=== PATIENT | female | born 1955 | race Caucasian/White ===

== ENCOUNTER 2019-07-18 16:10 | Inpatient (IN) | payer MEDICARE, OTHER, MEDICAID ==
[~2019-07-18] VITALS: Ht 152.4 cm; Wt 53.4 kg
--- OUTSIDE RECORDS SUMMARY | ~2019-07-18 | XMS | Encounter Summary ---
Demographics + + + | Address | [address] | | | [place] [address] | + + + | Home Phone | | + + + | Preferred Language | Unknown | + + + | Marital Status | Single | + + + | Yazidi Affiliation | NON | + + + | Race | White | + + + | Ethnic Group | Not or | + + + Author + + + | Author | [facility] | + + + | Organization | [facility] | + + + | Address | Unknown | + + + | Phone | Unavailable | + + + Support + + +---------+ + | Name | Relationship | Address | Phone | + + +---------+ + | Waleska Abebe | ECON | Unknown | | + + +---------+ + | Jarad Abebe | ECON | Unknown | | + + +---------+ + | Daniele Whitten | ECON | Unknown | | + + +---------+ + Care Team Providers + +------+ + | Care Atmospheric Sciences Professor Name | Role | Phone | + +------+ + | Heide Bhatti | PCP | | + +------+ + Reason for Visit Diagnostic Testing (Routine) +--------+--------+ + + + + | Status | Reason | Specialty | Diagnoses / | Referred By | Referred To | | | | | Procedures | Contact | Contact | +--------+--------+ + + + + | Closed | | Radiology | Diagnoses | Dmitriy, | Xxrad Vasc | | | | | Occlusion | MD Kaveh | [address] | | | | | and stenosis | [address] | | | | | of carotid | [place] | [facility] | | | | | artery | [address] | Rd Mailcode: | | | | | without | [place], [place] | [address] | | | | | mention of | [address] | Physician's | | | | | cerebral | Phone: | Pavilion | | | | | infarction | [phone] | [place], [place] | | | | | Atherosclero | Fax: | [address] | | | | | sis of | [phone] | Phone: | | | | | [place] | | [phone] | | | | | arteries of | | Fax: | | | | | the | | [phone] | | | | | extremities | | | | | | | with | | | | | | | intermittent | | | | | | | | | | | | | | claudication | | | | | | | Procedures | | | | | | | VASC LAB | | | | | | | ANKLE BRACH | | | | | | | INDICS W | | | | | | | WAVEFORM | | | | | | | BILAT | | | +--------+--------+ + + + + Encounter Details +--------+ + + + + | Date | Type | Department | Care Team | Description | +--------+ + + + + | 05/28/ | Hospital | Diagnostic | | | | 2010 | Encounter | Radiology at [facility] | | | | | | [address] | | | | | | [place] Mailcode: | | | | | | [address] Physician's | | | | | | [place], | | | | | | [place] [address] | | | | | | [phone] | | | +--------+ + + + + Social History + + + +--------+------+ | Tobacco Use | Types | Packs/Day | Years | Date | | | | | Used | | + + + +--------+------+ | Current Every Day | Cigarettes | 1.5 | 39 | | | Smoker | | | | | + + + +--------+------+ + + +---------+ + | Alcohol Use | Drinks/Week | oz/Week | Comments | + + +---------+ + | Yes | 18 Standard drinks | 15.0 | | | | or equivalent | | | + + +---------+ + + + + | Sex Assigned at | Date Recorded | | | | + + + | Not on file | | + + + + + + + | Job Start Date | Occupation | Industry | + + + + | Not on file | Not on file | Not on file | + + + + + + + + | Travel History | Travel Start | Travel End | + + + + + + | No recent travel history available. | + + documented as of this encounter Medications at Time of Discharge + + + +---------+--------+ + | Medication | Sig | Dispensed | Refills | Start | End Date | | | | | | Date | | + + + +---------+--------+ + | Albuterol 90 | Inhale 1-2 Puffs | | 0 | | | | mcg/Actuation | every four hours as | | | | | | Inhalation Aerosol | needed. | | | | | + + + +---------+--------+ + | ipratropium | Inhale 2 Puffs two | | 0 | | | | (ATROVENT HFA) 17 | times daily. | | | | | | mcg/Actuation | | | | | | | Inhalation HFA | | | | | | | Aerosol Inhaler | | | | | | + + + +---------+--------+ + documented as of this encounter Plan of Treatment +--------+ + + + + | Date | Type | Specialty | Care Team | Description | +--------+ + + + + | 06/17/ | Hospital | Adult Acute Care | Jarrod Barrett MD | | | 2019 | Encounter | | [address] | | | | | | [place], | | | | | | [place] [address] | | | | | | [phone] | | | | | | | | +--------+ + + + + | 06/18/ | Procedure | Surgery | | | | 2020 | Pass | | | | +--------+ + + + + documented as of this encounter Procedures + +--------+ + + + | Procedure Name | Priori | Date/Time | Associated Diagnosis | Comments | | | ty | | | | + +--------+ + + + | VASC LAB ANKLE BRACH | Routin | 05/28/2011 | Occlusion and | Results for this | | INDICS W WAVEFORM | e | 5:30 PM | stenosis of carotid | procedure are in the | | BILAT | | PDT | artery without | results section. | | | | | mention of cerebral | | | | | | infarction | | | | | | Atherosclerosis of | | | | | | [place] arteries of | | | | | | the extremities with | | | | | | intermittent | | | | | | claudication | | + +--------+ + + + documented in this encounter Results VAS LAB [facility]KLE BRACH INDICS W WAVEFORM BILAT (05/28/2011 5:30 PM PDT) + + + + + + | Component | Value | Ref Range | Performed | Pathologist | | | | | At | Signature | + + + + + + | VAS LAB | Med Rec No: | | | | | ANKLE BRACH | [id number] Name: | | | | | INDICS | DARCY ALVARADO Birthday: | | | | | WITH WAVE | 1955 Sex: F | | | | | FORM | Alias: Patient Location: | | | | | BILATERAL | RADSCHStatus: | | | | | | Outpatient Active | | | | | | Ordering Physician: | | | | | | KAVEH ARROYO M.D. | | | | | | VAIWVE VL ANKLE BRACH | | | | | | INDICS WWVE BI completed | | | | | | on 05/28/2011 5:30 | | | | | | PMAccession # [id number] | | | | | | RESULT:LOWER EXTREMITY | | | | | | PERIPHERAL ARTERIAL | | | | | | EXAMINATION: | | | | | | 05/28/2011 Dictated | | | | | | 05/29/2011 INDICATION: | | | | | | Claudication. | | | | | | FINDINGS: Arterial | | | | | | waveforms were obtained | | | | | | at the posterior | | | | | | tibialand dorsalis pedis | | | | | | levels bilaterally as | | | | | | well as the great | | | | | | toesbilaterally. There | | | | | | are triphasic arterial | | | | | | waveforms at the | | | | | | posteriortibial and | | | | | | dorsalis pedis levels | | | | | | bilaterally. There is | | | | | | goodpulsatility of the | | | | | | waveforms in the | | | | | | hga-jk-evnmko arteries | | | | | | of thegreat toes | | | | | | bilaterally. | | | | | | Ankle/brachial indices | | | | | | measure 1.10 on | | | | | | theright and 1.01 on the | | | | | | left. IMPRESSION: | | | | | | Normal peripheral | | | | | | arterial examination | | | | | | bilaterally. END | | | | | | IMPRESSION: Attending | | | | | | Radiologists: ,Author: | | | | | | LAURA LARA M.D. | | | | | | I have personally | | | | | | viewed this | | | | | | procedure/exam, reviewed | | | | | | this report,and made | | | | | | changes to it where | | | | | | appropriate. | | | | | | Final/Electronically | | | | | | signed / Laura Dill | | | | | | Kvng 05/30/2011 | | | | | | 2:08PM Preliminary / | | | | | | Avril Donato | | | | | | 05/29/2011 8:33 PM | | | | + + + + + + + + | Specimen | + + | | + + + +---------+ + + | Performing | Address | City/State/Zipcode | Phone Number | | Organization | | | | + +---------+ + + | [facility] | | | | | RADIOLOGY | | | | + +---------+ + + documented in this encounter Visit Diagnoses + + | Diagnosis | + + | Occlusion and stenosis of carotid artery without mention of cerebral infarction | + + | Atherosclerosis of [place] arteries of the extremities with intermittent claudication | + + documented in this encounter"
--- OUTSIDE RECORDS SUMMARY | ~2019-07-18 | XMS | Encounter Summary ---
Demographics + + + | Address | [address] | | | [place] [address] | + + + | Home Phone | | + + + | Preferred Language | Unknown | + + + | Marital Status | Single | + + + | Presybeterian Affiliation | NON | + + + | Race | White | + + + | Ethnic Group | Not or | + + + Author + + + | Author | [facility] | + + + | Organization | [facility] | + + + | Address | [...] Team Providers + +------+ + | Care General Intern Name | Role | Phone | + [...] | | of carotid | [address] | [facility] | | | | | artery | [address] | Rd Mailcode: | | | | | without | [place], [place] | [address] | | | | | mention of | [address] | Physician's | | | | | cerebral | Phone: | Pavilion | | | | | infarction | [phone] | [place], [place] | | | | | Atherosclero | Fax: | [address] | | | | | sis of | [phone] | Phone: | | | | | [place] | | [phone] | | | | | arteries of | | Fax: | | | | | the | | [phone] | | | | | extremities | [...] | 2010 | Encounter | Radiology at [facility] | | | | | | [address] | | | | | | [place] Mailcode: | | | | | | [address] Physician's | | | | | | [place], | | | | | | [place] [address] | | | | | | [phone] | | | +--------+ + + + [...] | | | | | [place], | | | | | | [place] [address] | | | | | | [phone] | | | | | | | [...] of | | | | | | [place] arteries of | | | | | [...] | | | | ANKLE BRACH | [id number] Name: | | | | | INDICS [...] | | | | | PMAccession # [id number] | | | | | | RESULT:LOWER [...] the | | | | | | cwr-mk-yajeof arteries | | | | | | [...] infarction | + + | Atherosclerosis of [place] arteries of the extremities with intermittent claudication | + + documented in this encounter"
--- OUTSIDE RECORDS SUMMARY | ~2019-07-18 | XMS | Encounter Summary ---
Demographics + + + | Address | [address] | | | [place] [address] | + + + | Home Phone | | + + + | Preferred Language | Unknown | + + + | Marital Status | Single | + + + | Moravian Affiliation | NON | + + + | Race | White | + + + | Ethnic Group | Not or | + + + Author + + + | Author | [facility] | + + + | Organization | [facility] | + + + | Address | [...] Team Providers + +------+ + | Care Drying Machine Back Tender Name | Role | Phone | + +------+ + | Litzy Castillo MD | PCP | | + +------+ + Encounter Details +--------+ + + + + | Date | Type | Department | Care Team | Description | +--------+ + + + + | 12/30/ | Telephone | HOSPITAL CASE | Deborah, | | | 2018 | | [address] | [address]Y [address] | | | | | [address] | [address] | | | | | [place], [place] | Rd [place], [place] | | | | | [address] | [address] | | | | | | [phone] | | +--------+ + + + + Social History + + + +--------+------+ | Tobacco Use | Types | Packs/Day | Years | Date | | | | | Used | | + + + +--------+------+ | Current Every Day | Cigarettes | 1 | 55 | | | Smoker | | | | | + + + +--------+------+ + +---+---+---+ | Smokeless Tobacco: | | | | | Never Used | | | | + +---+---+---+ + + +---------+ + | Alcohol Use | Drinks/Week | oz/Week | Comments | + + +---------+ + | Yes | 35 Standard drinks | 35.0 | 6 beers per day | | | or equivalent | | [...] + + documented as of this encounter Plan of Treatment +--------+ + + + + | Date | Type | Specialty | Care Team | Description | +--------+ + + + + | 06/17/ | Hospital | Adult Acute Care | Jarrod Barrett MD | | | 2019 | Encounter | | [address] | | | | | | [place], | | | | | | [place] [address] | | | | | | [phone] | | | | | | | | +--------+ + + + + | 06/18/ | Procedure | Surgery | | | | 2020 | Pass | | | | +--------+ + + + + documented as of this encounter Visit Diagnoses Not on filedocumented in this encounter"
--- OUTSIDE RECORDS SUMMARY | ~2019-07-18 | XMS | Encounter Summary ---
Demographics + + + | Address | [address] | | | [place] [address] | + + + | Home Phone | | + + + | Preferred Language | Unknown | + + + | Marital Status | | + + + | Islam Affiliation | Unknown | + + + | Race | Unknown | + + + | Ethnic Group | Unknown | + + + Author + + + | Author | [facility] | | | and [place] | + + + | Organization | [facility] | | | and [place] | + + + | Address | Unknown | + + + | Phone | Unavailable | + + + Support + + +---------+ + | Name | Relationship | Address | Phone | + + +---------+ + | Daniele Tapia | ECON | Unknown | | + + +---------+ + | Verónica Lopez | ECON | Unknown | | + + +---------+ + Care Team Providers + +------+ + | Care Hog Trader Name | Role | Phone | + +------+ + PCP | Unavailable | + +------+ + Encounter Details +--------+ + + + + | Date | Type | Department | Care Team | Description | +--------+ + + + + | 01/01/ | Hospital | [facility] | | | | 2011 | Encounter | MED CTR XRAY [address] | | | | | | [address] | | | | | | [place] [address] | | | | | | [phone] | | | +--------+ + + + + Social History + +-------+ +--------+------+ | Tobacco Use | Types | Packs/Day | Years | Date | | | | | Used | | + +-------+ +--------+------+ | Never Assessed | | | | | + +-------+ +--------+------+ + + + | Sex Assigned at [...] as of this encounter Plan of Treatment +--------+---------+ + + + | Date | Type | Specialty | Care Team | Description | +--------+---------+ + + + | 09/08/ | Office | Cardiology | Christine Ortega | | | 2020 | Visit | | [address] | | | | | | [address] | | | | | | [place] [address] | | | | | | [phone] | | | | | | | | +--------+---------+ + + + documented as of this encounter Procedures + +--------+ + + + | Procedure Name | Priori | Date/Time | Associated Diagnosis | Comments | | | ty | | | | + +--------+ + + + | VAS SEGMENTAL | | 01/02/2012 | | Results for this | | PRESSURES LEGS | | 9:34 AM | | procedure are in the | | | | PDT | | results section. | + +--------+ + + + documented in this encounter Results VAS Segmental Pressures Legs (01/02/2012 9:34 AM PDT) + + | Specimen | + + | | + + + + + | Narrative | Performed At | + + + | [facility] Diagnostic Imaging Department | [facility] | | [address] | [facility] | | LOWER EXTREMITY ARTERIAL | DIAG IMG | | ULTRASOUND EVALUATION CLINICAL HISTORY: QUESTION CLAUDICATION | | | FINDINGS: The arterial supply to the lower extremities is evaluated | | | utilizing Doppler waveform and segmental pressure analysis. | | | Doppler waveforms show a normal triphasic pattern from thigh to | | | ankle bilaterally. Similarly, segmental pressures compare | | | favorably to brachial with thigh-brachial indices of 1.32 on the | | | right and 1.27 on the left; calf-brachial indices of 1.16 on the right | | | and 1.00 on the left and ankle-brachial index of 1.09 on the right | | | and 1.11 on the left. Pulse volume recordings show normal | | | waveforms. IMPRESSION: 1. NO SONOGRAPHIC EVIDENCE OF | | | SIGNIFICANT PERIPHERAL ARTERIAL DISEASE IN THE LOWER EXTREMITIES. | | | Dictated Date/Time: 01/02/2012 11:28 Transcribed Date/Time: | | | 01/02/2012 13:48 Auto Former Machine Operator: <Electronically Signed | | | by Jared Jauregui MD> 01/03/12 0814 | | + + + + + | Procedure Note | + + | Zak Ortiz - 10/27/2013 7:17 AM [facility] | | Diagnostic Imaging Department | | [address] | | | | | | | | | | | | LOWER EXTREMITY ARTERIAL ULTRASOUND EVALUATION | | | | CLINICAL HISTORY: QUESTION CLAUDICATION | | FINDINGS: The arterial supply to the lower extremities is evaluated utilizing | | Doppler waveform and segmental pressure analysis. Doppler waveforms show a | | normal triphasic pattern from thigh to ankle bilaterally. Similarly, segmental | | pressures compare favorably to brachial with thigh-brachial indices of 1.32 on | | the right and 1.27 on the left; calf-brachial indices of 1.16 on the right and | | 1.00 on the left and ankle-brachial index of 1.09 on the right and 1.11 on the | | left. Pulse volume recordings show normal waveforms. | | | | IMPRESSION: | | 1. NO SONOGRAPHIC EVIDENCE OF SIGNIFICANT PERIPHERAL ARTERIAL DISEASE IN THE | | LOWER EXTREMITIES. | | | | Dictated Date/Time: 01/02/2012 11:28 | | Transcribed Date/Time: 01/02/2012 13:48 | | Auto Former Machine Operator: | | <Electronically Signed by Jared Jauregui MD> 01/03/12 0814 | + + + +---------+ + + | Performing | Address | City/State/Zipcode | Phone Number | | Organization | | | | + +---------+ + + | [facility] | | | | | [facility] | | | | + +---------+ + + documented in this encounter Visit Diagnoses Not on filedocumented in this encounter"
--- OUTSIDE RECORDS SUMMARY | ~2019-07-18 | XMS | Encounter Summary ---
Demographics + + + | Address | [address] | | | [place] [address] | + + + | Home Phone | | + + + | Preferred Language | Unknown | + + + | Marital Status | | + + + | Moravian Affiliation | Unknown | + + + [...] Team Providers + +------+ + | Care Instructor Warper Name | Role | Phone | + +------+ + PCP | Unavailable | + +------+ + Encounter Details +--------+ + + + + | Date | Type | Department | Care Team | Description | +--------+ + + + + | 05/24/ | Hospital | [facility] | [facility] | | | 2010 | Encounter | HOSPITAL EMERGENCY | MD [address] | | | | | CENTER [address] | [facility] | | | | | DR [place], [place] | [place] [address] | | | | | [address] | [phone] | | | | | [phone] | | | +--------+ + + + [...] Cardiology | Christine Ortega | | | 2019 | Visit | | [address] | | | | | | [address] | | | | | | [place] [address] | | | | | | [phone] | | | | | | | | +--------+---------+ + + + documented as of this encounter Visit Diagnoses Not on filedocumented in this encounter"
--- OUTSIDE RECORDS SUMMARY | ~2019-07-18 | XMS | Encounter Summary ---
Demographics + + + | Address | [address] | | | [place] [address] | + + + | Home Phone | | + + + | Preferred Language | Unknown | + + + | Marital Status | | + + + | Lutheran Affiliation | Unknown | + + + | Race | Unknown | + + + | Ethnic Group | Unknown | + + + Author + + + | Author | [facility] | | | and [place] | + + + | Organization | [facility] | | | and [...] Team Providers + +------+ + | Care Food Court Team Member Name | Role | Phone | + +------+ + | Litzy Castillo MD | PCP | | + +------+ + Encounter Details +--------+ + + + + | Date | Type | Department | Care Team | Description | +--------+ + + + + | 08/28/ | Hospital | [facility] GENERIC IP | Conversion | Pain | | 2019 | Encounter | CON[address] | Transaction, | | | | [address] | Provider Unknown | | | | | [place], [place] | [phone] | | | | | [address] | | | | | | [phone] | | | +--------+ + + + + Social History + + + +--------+------+ | Tobacco Use | Types | Packs/Day | Years | Date | | | | | Used | | + + + +--------+------+ | Current Every Day | Cigarettes | 1 | 50 | | | Smoker | | | | | + + + +--------+------+ + +---+---+---+ | Smokeless Tobacco: | | | | | Never Used | | | | + +---+---+---+ + + +---------+ + | Alcohol Use | Drinks/Week | oz/Week | Comments | + + +---------+ + | Yes | | | Daily | + + +---------+ + + + [...] at Time of Discharge + + + +---------+ + + | Medication | Sig | Dispensed | Refills | Start | End Date | | | | | | Date | | + + + +---------+ + + | albuterol 90 | Inhale 2 puffs into | | 0 | | | | mcg/puff inhaler | the lungs every 4 | | | | | | | hours as needed for | | | | | | | Wheezing or | | | | | | | Shortness of Breath. | | | | | + + + +---------+ + + | atenolol | Take 100 mg by mouth | | 0 | | | | (TENORMIN) 50 mg | Daily. | | | | | | tablet | | | | | | + + + +---------+ + + | levothyroxine | Take 50 mcg by mouth | | 0 | | | | (SYNTHROID) 25 mcg | every morning | | | | | | tablet | (before breakfast). | | | | | + + + +---------+ + + | valsartan (DIOVAN) | Take 80 mg by mouth | | 0 | | | | 80 mg tablet | Daily. | | | | | + + + +---------+ + + | aspirin 325 mg | Take 325 mg by mouth | | 0 | | | | tablet | Daily. | | | | 9 | + + + +---------+ + + | clopidogrel | Take 75 mg by mouth | | 0 | | | | (PLAVIX) 75 mg | Daily. | | | | 9 | | tablet | | | | | | + + + +---------+ + + | cyclobenzaprine | Take 1 tablet by | 60 | 0 | 03/17/20 | | | (FLEXERIL) 5 MG | mouth 3 times daily | tablet | | 18 | 9 | | tablet | as needed for Muscle | | | | | | | spasms. | | | | | + + + +---------+ + + | gabapentin | Take 300 mg by mouth | | 0 | | | | (NEURONTIN) 300 mg | 4 times daily. | | | | 9 | | capsule | | | | | | + + + +---------+ + + | simvastatin | Take 40 mg by mouth | | 0 | | | | (ZOCOR) 40 mg tablet | nightly. | | | | 9 | + + + +---------+ + + | traMADol (ULTRAM) | 1-2 tablets PO q6 | 90 | 0 | 03/17/20 | | | 50 mg tablet | hours PRN back pain | tablet | | 18 | 9 | + + + +---------+ + + documented as of this encounter [...] [address] | | | | | | [place] [address] | | | | | | [phone] | | | | | | | | +--------+---------+ + + + documented as of this encounter Procedures + +--------+ + + + | Procedure Name | Priori | Date/Time | Associated Diagnosis | Comments | | | ty | | | | + +--------+ + + + | MRI SHOULDER LEFT WO | Routin | 10/23/2009 | | Results for this | | CONTRAST | e | 5:01 AM | | procedure are in the | | | | PST | | results section. | + +--------+ + + + documented in this encounter Results MRI Shoulder Left wo Contrast (10/23/2009 5:01 AM PST) + + | Specimen | + + | | + + + + + | Narrative | Performed At | + + + | This is a non-reportable procedure without a radiologist report and | | | is used for image storage only | | + + + + + | Procedure Note | + + | Zak Ortiz - 04/05/2019 10:50 PM PDT This is a non-reportable procedure | | without a radiologist report and isused for image storage only | + + documented in this encounter Visit Diagnoses + + | Diagnosis | + + | Pain Generalized pain | + + documented in this encounter"
--- OUTSIDE RECORDS SUMMARY | ~2019-07-18 | XMS | Encounter Summary ---
Demographics + + + | Address | [address] | | | [place] [address] | + + + | Home Phone [...] Author + + + | Author | [facility] | + + + | Organization | [facility] | + + + | Address | [...] Team Providers + +------+ + | Care Cognos Analyst Name | Role | Phone | + +------+ + | Litzy Castillo MD | PCP | | + +------+ + Reason for Visit +--------+ + | Reason | Comments | +--------+ + | Other | surgical clearance | +--------+ + Encounter Details +--------+ + + + + | Date | Type | Department | Care Team | Description | +--------+ + + + + | 12/02/ | Telephone | Spine Center at | Jarrod Barrett MD | Other (surgical | | 2019 | | [facility] [address] | [address] | clearance ) | | | | [address] Mailcode: | [address] [place], | | | | | [facility] | [place] [address] | | | | | and [address], | [phone] | | | | | [facility] [address] | | | | | | [place], [place] | | | | | | [address] | | | | | | [phone] | | | +--------+ + + + [...] | 35 Standard drinks | 35.0 | 5 beers per day | | | or [...] | | | | | [address] [place], | | | | | | [place] [address] | | | | | | [phone] | | | | | | | | +--------+ + + + + | 06/18/ | Procedure | Surgery | | | | 2019 | Pass | | | | +--------+ + + + + documented as of this encounter Visit Diagnoses Not on filedocumented in this encounter"
--- OUTSIDE RECORDS SUMMARY | ~2019-07-18 | XMS | Encounter Summary ---
Demographics + + + | Address | [address] | | | [place] [address] | + + + | Home Phone | | + + + | Preferred Language | Unknown | + + + | Marital Status | | + + + | Hoahaoism Affiliation | Unknown | + + + | Race | Unknown | + + + | Ethnic Group | Unknown | + + + Author + + + | Author | [facility] | | | and [place] | + + + | Organization | [facility] | | | and [...] Team Providers + +------+ + | Care Gas Compressor Operator Name | Role | Phone | + +------+ + | Litzy Castillo MD | PCP | | + +------+ + Reason for Visit + + + | Reason | Comments | + + + | Medication Reaction | | + + + Encounter Details +--------+ + + + + | Date | Type | Department | Care Team | Description | +--------+ + + + + | 03/26/ | Telephone | [facility] [place] | [place], | Medication Reaction | | 2017 | | [address] | [address] | | | | | [place], | [place] [facility], | | | | | [place] [address] | [place] [address] | | | | | [phone] | [phone] | | | | | | | | +--------+ + + + + Social History + + + +--------+------+ | Tobacco Use | Types | Packs/Day | Years | Date | | | | | Used | | + + + +--------+------+ | Current Every Day | Cigarettes | 1 | | | | Smoker | | | [...] [address] | | | | | | [place] [address] | | | | | | [phone] | | | | | | | | +--------+---------+ + + + documented as of this encounter Visit Diagnoses Not on filedocumented in this encounter"
--- OUTSIDE RECORDS SUMMARY | ~2019-07-18 | XMS | Encounter Summary ---
Demographics + + + | Address | [address] | | | [place] [address] | + + + | Home Phone | | + + + | Preferred Language | Unknown | + + + | Marital Status | Single | + + + | Roman Catholic Affiliation | NON | + + + | Race | White | + + + | Ethnic Group | Not or | + + + Author + + + | Author | [facility] | + + + | Organization | [facility] | + + + | Address | [...] Team Providers + +------+ + | Care Market Maker Name | Role | Phone | + +------+ + | Heide Bhatti | PCP | | + +------+ + Encounter Details +--------+ + + + + | Date | Type | Department | Care Team | Description | +--------+ + + + + | 02/16/ | 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
--- OUTSIDE RECORDS SUMMARY | ~2019-07-18 | XMS | Encounter Summary ---
Demographics + + + | Address | [address] | | | [place] [address] | + + + | Home Phone | | + + + | Preferred Language | Unknown | + + + | Marital Status | | + + + | Tenriism Affiliation | Unknown | + + + | Race | Unknown | + + + | Ethnic Group | Unknown | + + + Author + + + | Author | [facility] | | | and [place] | + + + | Organization | [facility] | | | and [...] Team Providers + +------+ + | Care Security Control Center Operator Name | Role | Phone | + +------+ + | Litzy Castillo MD | PCP | | + +------+ + Encounter Details +--------+ + + + + | Date | Type | Department | Care Team | Description | +--------+ + + + + | 08/28/ | Hospital | [facility] | Conversion | Pain | | 2019 | Encounter | [address] | Transaction, | | | | | [address] | Provider Unknown | | | | | [place], [place] | [phone] | | | | | [address] | | | | | | [phone] | | | +--------+ + + + [...] [address] | | | | | | [place] [address] | | | | | | [phone] | | | | | | | [...]
--- OUTSIDE RECORDS SUMMARY | ~2019-07-18 | XMS | Encounter Summary ---
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
--- OUTSIDE RECORDS SUMMARY | ~2019-07-18 | XMS | Encounter Summary ---
Demographics + + + | Address | [address] | | | [place] [address] | + + + | Home Phone | | + + + | Preferred Language | Unknown | + + + | Marital Status | | + + + | Advent Affiliation | Unknown | + + + | Race | Unknown | + + + | Ethnic Group | Unknown | + + + Author + + + | Author | [facility] | | | and [place] | + + + | Organization | [facility] | | | and [...] Team Providers + +------+ + | Care Tank Welder Name | Role | Phone | + +------+ + PCP | Unavailable | + +------+ + Encounter Details +--------+ + + + + | Date | Type | Department | Care Team | Description | +--------+ + + + + | 05/13/ | Hospital | [place] [facility] | Davy Heide | | | 2011 | Encounter | HOSPITAL XRAY [address] | EMIR [address] | | | | | [address] | [facility], | | | | | [place], [place] | [place] [address] | | | | | [address] | [phone] | | | | | [phone] | | | +--------+ + + + [...] [address] | | | | | | [place] [address] | | | | | | [phone] | | | | | | | | +--------+---------+ + + + documented as of this encounter Visit Diagnoses Not on filedocumented in this encounter"
--- OUTSIDE RECORDS SUMMARY | ~2019-07-18 | XMS | Encounter Summary ---
Demographics + + + | Address | [address] | | | [place] [address] | + + + | Home Phone | | + + + | Preferred Language | Unknown | + + + | Marital Status | Single | + + + | Scientology Affiliation | NON | + + + | Race | White | + + + | Ethnic Group | Not or | + + + Author + + + | Author | [facility] | + + + | Organization | [facility] | + + + | Address | [...] Team Providers + +------+ + | Care Machine Candle Molder Name | Role | Phone | + [...] | | | | | | | [address] | | | | | | | [address] | | | | | | | [id number] | | | | | | | [facility] | | | | | | | Hospital | | | | | | | [place], [place] | | | | | | | [address] | | | | | | | Phone: | | | | | | | [phone] | | | | | | | Fax: | | | | | | | [phone] | +--------+--------+ + + + + Encounter Details +--------+ + + + + | Date | Type | Department | Care Team | Description | +--------+ + + + + | 11/15/ | Emergency | [facility] Emergency | | | | 2009 - | | Department [address] | | | [address] | | | | 11/16/ | | [facility] Hospital | | | | 2009 | | [place], [place] | | | | | | [address] | | | | | | [phone] | | | +--------+ + + + [...] | | | | | [address] [place], | | | | | | [place] [address] | | | | | | [phone] | | | | | | | | +--------+ + + + + | 06/18/ | Procedure | Surgery | | | | 2019 | Pass | | | | +--------+ + + + + documented as of this encounter Visit Diagnoses Not on filedocumented in this encounter"
--- OUTSIDE RECORDS SUMMARY | ~2019-07-18 | XMS | Encounter Summary ---
Demographics + + + | Address | [address] | | | [place] [address] | + + + | Home Phone | | + + + | Preferred Language | Unknown | + + + | Marital Status | | + + + | Sikhism Affiliation | Unknown | + + + | Race | Unknown | + + + | Ethnic Group | Unknown | + + + Author + + + | Author | [facility] | | | and [place] | + + + | Organization | [facility] | | | and [...] Team Providers + +------+ + | Care Geographic Information Systems Manager Name | Role | Phone | + +------+ + PCP | Unavailable | + +------+ + Encounter Details +--------+ + + + + | Date | Type | Department | Care Team | Description | +--------+ + + + + | 04/10/ | Hospital | [place] [facility] | Lauro-Anshul, | | | 2011 | Encounter | HOSPITAL MED SURG | Nicole Colon MD | | | | | [address] | [address] [facility] | | | | | [place], [place] | Way [facility], | | | | | [address] | [place] [address] | | | | | [phone] | [phone] | | | | | | | [...] + + documented as of this encounter Discharge Summaries Nicole Burgess MD - 04/10/2012 1:30 AM [facility] Dictating Practitioner: NICOLE LOBO MD Patient Name: DARCY ALVARADO Patient Date of : 1955 Visit Number: [id number] DISCHARGE SUMMARY DATE OF DISCHARGE: 04/10/2012. DISCHARGE DIAGNOSIS: TIA. HOSPITAL COURSE: This is a 57-year-old patient who presented to the emergency room complaining of loss of sensation of the left lower extremity, as well as weakness, which resolved after she came to the emergency room. The patient does have a significant history of 100% carotid blockage on the left carotid and endarterectomy of the right one about 5 years ago because of a 75% blockage. The patient said she gets frequent episodes of TIA and over the last few months she has been getting it more often. The patient is already on aspirin and PLAVIX, so I do not need to optimize her medications. DISCHARGE PLAN: She will need to follow up with CECELIA Agarwal, over the next few days for further referral to a vascular surgeon with regard to her 100% blockage on the left internal carotid artery. She will continue the rest of her home medications. cc: CECELIA Martinez [id number] / [id number] Dictation Date/Time: April 10, 2012 11:57AM Serging Machine Operator Date/Time: April 12, 2012 06:27AM Authenticated and Edited by Nicole Lobo MD On 04/16/12 11:26:50 AM IFC Signed and Approved by: NICOLE LOBO MD 04/16/2012 11:26:00 documented in this encounter Plan of Treatment +--------+---------+ + + + | Date | Type | Specialty | Care Team | Description | +--------+---------+ + + + | 09/08/ | Office | Cardiology | Christine Ortega | | | 2020 | Visit | | [address] | | | | | | [address] | | | | | | [place] [address] | | | | | | [phone] | | | | | | | | +--------+---------+ + + + documented as of this encounter Visit Diagnoses Not on filedocumented in this encounter"
--- OUTSIDE RECORDS SUMMARY | ~2019-07-18 | XMS | Encounter Summary ---
Demographics + + + | Address | [address] | | | [place] [address] | + + + | Home Phone | | + + + | Preferred Language | Unknown | + + + | Marital Status | Single | + + + | Buddhism Affiliation | NON | + + + | Race | White | + + + | Ethnic Group | Not or | + + + Author + + + | Author | [facility] | + + + | Organization | [facility] | + + + | Address [...] Team Providers + +------+ + | Care Flower Cheniller Name | Role | Phone | + +------+ + | Litzy Castillo MD | PCP | | + +------+ + Reason for Referral Physical Therapy (Routine) + +--------+ + + + + | Status | Reason | Specialty | Diagnoses / | Referred By | Referred To | | | | | Procedures | Contact | Contact | + +--------+ + + + + | New Request | | Physical | Diagnoses | Jermaine, | | | | | Therapy | Lumbar | Rosa Isela Whyte, | | | | | | radiculopath | PA [address] | | | | | | y | [address] | | | | | | Procedures | [place], [place] | | | | | | PHYSICAL | [address] | | | | | | THERAPY | Phone: | | | | | | REFERRAL | [phone] | | | | | | | Fax: | | | | | | | [phone] | | + +--------+ + + + + Reason for Visit +---------+ + | Reason | Comments | +---------+ + | Post Op | | +---------+ + Consult to [place] (Routine) +--------+--------+ + + + + | Status | Reason | Specialty | Diagnoses / | Referred By | Referred To | | | | | Procedures | Contact | Contact | +--------+--------+ + + + + | Closed | | Spine | Diagnoses | Orina, | Orina, | | | | | Other | MD Jarrod | MD Jarrod | | | | | bursal cyst, | [address] | [address] | | | | | other site | [address] | [address] [address] | | | | | Spinal | Rd | Rd [place], | | | | | stenosis, | [place], [place] | [place] | | | | | lumbar | [address] | [address] | | | | | region with | Phone: | Phone: | | | | | neurogenic | [phone] | [phone] | | | | | claudication | Fax: | Fax: | | | | | | [phone] | [phone] | | | | | Radiculopath | | | | | | | y, lumbar | | | | | | | region | | | | | | | Procedures | | | | | | | REQUEST TO | | | | | | | SURGERY | | | | | | | CHAIN MAKER LOOM CONTROL | | | | | | | PA EXCIS | | | | | | | INTRASP | | | | | | | LESN,XDURAL, | | | | | | | LUMBAR PA | | | | | | | EXCIS | | | | | | | INTRASP | | | | | | | LESN,INTRADU | | | | | | | R,LUMB PA | | | | | | | BX/EXCIS | | | | | | | SPINAL | | | | | | | TUMOR,XDURAL | | | | | | | ,LUMB PA | | | | | | | BX/EXCIS | | | | | | | SPIN | | | | | | | BALBIR,INDUR,XM | | | | | | | ED,LUMB PA | | | | | | | [...] Description | +--------+---------+ + + + | 12/27/ | Office | [facility] | Jermaine, | Lumbar radiculopathy | | 2019 | Visit | [facility] [address] | SHAYE Beyer | (Primary Dx) | | | | Ave Mailcode: | [address] | | | | | [facility] | [place], [place] | | | | | and [place], | [address] | | | | | [place] [address] | [phone] | | | | | [place], [place] | | | | | | [address] | | | | | | [phone] | | | +--------+---------+ + + + Social History [...] + + + | Blood Pressure | 168/73 | 12/27/2018 1:52 PM | | | | | PDT | | + + + + + | Pulse | 59 | 12/27/2018 1:52 PM | | | | | PDT [...] + + + + | Weight | 54 kg (119 lb) | 12/27/2018 1:52 PM | | | | | PDT | | + + + + + | Height | 152.4 cm (5') | 12/27/2018 1:52 PM | | | | | PDT | | + + + + + | Body Mass Index | 23.24 | 12/27/2018 1:52 PM | | | | | PDT | | + + + + + documented in this encounter Progress Notes Rosa Isela Dean PA - 12/27/2018 2:20 PM PDTS: Ms. Sun is here for a scheduled post op visit. The patient is a 63 y/o Female with Lumbar stenosis with radiculopathy and Right L 4-5 synovial cyst. She is now s/p Right L4-5 hemilaminectomy and medial facetectomy, Right L 4-5 and Right L5-V1ldqjhvrtugpcwc and Resection of right L4-5 synovial cyst on 12/14/2018. T he patient endorses some ongoing surgical site pain but reports significant improvement in h er pre operative RLE pain. She is now able to ambulate without an assistive device. BP 168/73 (BP Location: Left upper arm, Patient Position: Sitting) | Pulse 59 | Ht 1.524 m (5') | Wt 54 kg (119 lb) | BMI 23.24 kg/m | BSA 1.51 m O: Gen: 63 y/o Female NAD Incision: Lumbar Spine-intact. No erythema, no discharge. Neuro: A + O x 3, Motor 5/5 throughout Sensation intact to light touch throughout Gait-normal pattern without assistive device A: 63 y/o Female with Lumbar stenosis with radiculopathy and Right L4-5 synovial cyst. She is now s/p Right L4-5 hemilaminectomy and medial facetectomy, Right L4-5 and Right L5-S1fora minotomies and Resection of right L4-5 synovial cyst on 12/14/2018. Doing well postop. P: Reviewed proper body mechanics and activity restrictions and progression. Patient to sta rt PT at 6 weeks post op. Placed external order, patient will call with location where she w ould like it faxed. Will have patient follow up with Dr. Barrett at 3 months postop. She has khris berkowitz advised to contact our clinic prior to her next appointment should she have any question s or concerns. She verbalized understanding and agreed with this plan. [facility] [address] [place] [id number] documented in t his encounter Plan of Treatment +--------+ + + + + | Date | Type | Specialty | Care Team | Description | +--------+ + + + + | 06/17/ | Hospital | Adult Acute Care | Jarrod Barrett MD | | | 2019 | Encounter | | [address] | | | | | | [place], | | | | | | [place] [address] | | | | | | [phone] | | | | | | | | +--------+ + + + + | 06/18/ | Procedure | Surgery | | | | 2019 | Pass | | | | +--------+ + + + + documented as of this encounter Visit Diagnoses + + | Diagnosis | + + | Lumbar radiculopathy - Primary Thoracic or lumbosacral neuritis or radiculitis, | | unspecified | + + documented in this encounter"
--- OUTSIDE RECORDS SUMMARY | ~2019-07-18 | XMS | Encounter Summary ---
Demographics + + + | Address | [address] | | | [place] [address] | + + + | Home Phone | | + + + | Preferred Language | Unknown | + + + | Marital Status | | + + + | Evangelical Affiliation | Unknown | + + + | Race | Unknown | + + + | Ethnic Group | Unknown | + + + Author + + + | Author | [facility] | | | and [place] | + + + | Organization | [facility] | | | [...] Team Providers + +------+ + | Care Project Management Manager Name | Role | Phone | + +------+ + PCP | Unavailable | + +------+ + Encounter Details +--------+ + + + + | Date | Type | Department | Care Team | Description | +--------+ + + + + | 07/23/ | Hospital | [place] [facility] | Matheus Corado MD | | | 2012 | Encounter | [facility] | [address] | | | | | [facility] | [place], [place] | | | | | [address], | [address] | | | | | [place] [address] | | | | | | [phone] | | | +--------+ + + + [...] | | 2019 | Visit | | [address] | | | | | | [address] | | | | | | [place] [address] | | | | | | [phone] | | | | | | | | +--------+---------+ + + + documented as of this encounter Visit Diagnoses Not on filedocumented in this encounter"
--- OUTSIDE RECORDS SUMMARY | ~2019-07-18 | XMS | Encounter Summary ---
Demographics + + + | Address | [address] | | | [place] [address] | + + + | Home Phone | | + + + | Preferred Language | Unknown | + + + | Marital Status | Single | + + + | Muslim Affiliation | NON | + + + | Race | White | + + + | Ethnic Group | Not or | + + + Author + + + | Author | [facility] | + + + | Organization | [facility] | + + + | [...] Team Providers + +------+ + | Care Crop Scout Name | Role | Phone | + +------+ + | Litzy Castillo MD | PCP | | + +------+ + Reason for Visit + + + | Reason | Comments | + + + | Pre-operative | | | evaluation | | + + + Encounter Details +--------+ + + + + | Date | Type | Department | Care Team | Description | +--------+ + + + + | 12/13/ | Telephone-S | Preoperative | | Pre-operative | | 2019 | cheduled | Medicine Clinic at | | evaluation | | | | [facility] | | | | | | [address] | | | | | | Mail Code: OC8PM | | | | | | [facility] | | | | | | and Healing, | | | | | | [address] | | | | | | [place], [place] | | | | | | [address] | | | | | | [phone] | | | +--------+ + + + + Anesthesia Record + + + + + | Procedure Name | Responsible | Anesthesia Start | Anesthesia Stop Time | | | Anesthesiologist | Time | | + + + + + | L4-5 LAMINECTOMY; | Shine Griffith MD | 12/14/18 1159 | 12/14/18 1506 | | (N/A Back) | | | | + + + + + +----+---+ + + | Da | T | Event | Comment | | te | i | | | | | m | | | | | e | | | +----+---+ + + | 04 | 1 | | | | /2 | 1 | | | | 3/ | 2 | | | | 20 | 2 | | | | 19 | | | | +----+---+ + + | | 1 | Pt. Check | Prior to anesthesia start, pt. Identified, examined, chart | | | 1 | | reviewed, PARQ held, anesthetic plan made or approved by | | | 2 | | attending anesthesiologist. NPO status confirmed as appropriate | | | 2 | | for procedure Preoperative evaluation: unchanged | +----+---+ + + | | 1 | Eq Check | Anesthesia machine checked Equipment verified | | | 1 | | | | | 2 | | | | | 8 | | | +----+---+ + + | | 1 | An Start | | | | 1 | | | | | 5 | | | | | 9 | | | +----+---+ + + | | 1 | An Start | | | | 2 | Data | | | | 0 | | | | | 2 | | | +----+---+ + + | | 1 | Vitals | Monitors applied Vital signs checked Patient ready for anesthesia | | | 2 | Checked | | | | 0 | | | | | 3 | | | +----+---+ + + | | 1 | ETT | | | | 2 | | | | | 1 | | | | | 3 | | | +----+---+ + + | | 1 | An Data Art | ECG leads not picking up. Stickers changed once prone, readings | | | 2 | | now appropriate | | | 1 | | | | | 9 | | | +----+---+ + + | | 1 | Ready | | | | 2 | | | | | 2 | | | | | 0 | | | +----+---+ + + | | 1 | An Data Art | Data artifact from surgical scrubbing | | | 2 | | | | | 3 | | | | | 9 | | | +----+---+ + + | | 1 | Abx | | | | 2 | Administere | | | | 4 | d | | | | 0 | | | +----+---+ + + | | 1 | Incision | | | | 2 | | | | | 5 | | | | | 4 | | | +----+---+ + + | | 1 | An Data Art | ECG double counting complexes, pulse stable mid-high 50's | | | 4 | | | | | 0 | | | | | 2 | | | +----+---+ + + | | 1 | Surgery end | | | | 4 | | | | | 4 | | | | | 5 | | | +----+---+ + + | | 1 | An Extubate | Neuromuscular function Intact. Pharynx suctioned. Patient obeys | | | 4 | | commands. Adequate pulmonary mechanics. | | | 5 | | | | | 8 | | | +----+---+ + + | | 1 | an stop | | | | 4 | data | | | | 5 | | | | | 9 | | | +----+---+ + + | | 1 | PACU Rpt | | | | 5 | Given | | | | 0 | | | | | 6 | | | +----+---+ + + | | 1 | Anesthesia | | | | 5 | End | | | | 0 | | | | | 6 | | | +----+---+ + + | | 1 | Post-Op | | | | 6 | Page | | | | 0 | | | | | 0 | | | +----+---+ + + +------+ | Meds | +------+ + + + No medications | on file. | + + + + + | No agents on file. | + + + + | No blood administrations on file. | + + +--------+ + + + | Type | Details | Placement | Removal | +--------+ + + + | Incisi | 12/14/18; 1254; Dr. Barrett; | 12/14/18 1254 by | | | on | Midline; spine- lumbar | Rosalina Brown RN | | +--------+ + + + | Periph | 12/14/18; 1127; 12/14/18; 165; | 12/14/18 1127 by | 12/14/18 165 by | | eral | Discharge | Sophie Lam RN | Tomi Soriano RN | | IV | | | | +--------+ + + + | ETT | 12/14/18; 1129; Endotracheal | 12/14/18 1129 by | 12/14/18 1458 by | | | Tube; Oral; Breath Sounds | Shine Griffith MD | Jass Huynh MD | | | bilaterally, Continous | | | | | Capnography; Cuffed; 12/14/18; | | | | | 1458 | | | +--------+ + + + documented in this encounter Social History + + + +--------+------+ | [...] + + documented as of this encounter Patient Instructions Patient Instructions Daryl Bessie, TERRY - 12/13/2018 10:24 AM PDTFormatting of this note cheo ht be different from the original. PREOPERATIVE INSTRUCTIONS Do not eat or drink anything after midnight the night before surgery. TAKE the following medications with a sip of water on the morning of surgery: ATENOLOL 100 MG TABLET ALBUTEROL 90 MCG/ACTUATION AEROSOL INHALER GABAPENTIN 300 MG CAPSULE IPRATROPIUM BROMIDE 17 MCG/ACTUATION HFA AEROSOL INHALER LEVOTHYROXINE 50 MCG TABLET Do NOT take the following medications on the morning of surgery: ASPIRIN 81 MG TABLET,DELAYED RELEASE CLOPIDOGREL 75 MG TABLET CYCLOBENZAPRINE 5 MG TABLET SIMVASTATIN 40 MG TABLET VALSARTAN 80 MG TABLET Unless Otherwise Directed by your Surgeon Do not take any Aspirin, vitamin E or non-ster oidal anti-inflammatory (NSAIDs i.e. Advil, Aleve, Ibuprofen) or herbal supplements seven da ys prior to your surgery. These drugs may interfere with normal blood clotting and may cause excessive bleeding and bruising during or after the surgery. If you are taking Coumadin (warfarin), Plavix or any other blood thinners please let you r surgical team know as medication changes will be necessary. If you need a pain medication for general purposes, use Tylenol as directed. If you are in doubt about any medications that you are taking, please contact our office . Important Guidelines Do not shave the surgical area Do not smoke, drink alcohol or use recreational drugs for 24 hours before your surgery Do not eat any hard candy or chew gum after midnight the night before your surgery. Watch for any change in your health condition. Let your surgeon know right away if you do not feel well. Do not wear makeup, perfume, lotions or powder. Remove any nail portuguese from at least one fingernail. Do not wear any jewelry to the hospital. Wear loose, comfortable clothing. Bring the case and solution for your contact lenses or wear your glasses. Leave all your valuables at home. Allow enough travel time so you re not late for your check in for surgery. Take a bath or shower and remember to shampoo your hair using your usual hair product be fore your arrival at the hospital. Please remember to brush your teeth the night before and the morning of your procedure. Surgery Check in Locations Admitting [facility] Surgery Check in Time: Someone from your surgeon's office or [facility] will provide you with information regarding your check in time. If you have any questions about this, pl ease contact your surgeon's office. Going Home Your surgical team will decide when you are medically ready to go home. If you are released to go home on the same day as your procedure/surgery please note the following: You will not be able to drive. You will be required to have a competent adult drive you or accompany you by taxi or pub lic transportation on the day of discharge. It is also required that you have a competent adult assist you and look after you on the first night after you have undergone regional blocks (72 hours for patients going home with regional block pump), deep sedation, and/or general anesthesia. If you stayed in the hospital after surgery, please arrange for your ride to come for yo u around 9AM on the day your doctor says you can go home. Check out time is 11AM. If you have questions or concerns after you go home, call your doctor s office. If it is after office hours, call the [facility] weigher operator at [phone] and ask them to page your doc tor. documented in this encounter Plan of Treatment +--------+ + + + + | Date | Type | Specialty | Care Team | Description | +--------+ + + + + | 06/17/ | Hospital | Adult Acute Care | Jarrod Barrett MD | | | 2019 | Encounter | | [address] | | | | | | [place], | | | | | | [place] [address] | | | | | | [phone] | | | | | | | | +--------+ + + + + | 06/18/ | Procedure | Surgery | | | | 2019 | Pass | | | | +--------+ + + + + documented as of this encounter Visit Diagnoses Not on filedocumented in this encounter"
--- OUTSIDE RECORDS SUMMARY | ~2019-07-18 | XMS | Encounter Summary ---
Demographics + + + | Address | [address] | | | [place] [address] | + + + | Home Phone | | + + + | Preferred Language | Unknown | + + + | Marital Status | Single | + + + | Anglican Affiliation | NON | + + + | Race | White | + + + | Ethnic Group | Not or | + + + Author + + + | Author | [facility] | + + + | Organization | [facility] | + + + | Address | [...] Team Providers + +------+ + | Care Contact Center Director Name | Role | Phone | + +------+ + | Heide Bhatti | PCP | | + +------+ + Encounter Details +--------+ + + + + | Date | Type | Department | Care Team | Description | +--------+ + + + + | 09/15/ | Telephone | Vascular Surgery | Kaveh Izaguirre MD | | | 2011 | | at [facility] 2nd Floor | [address] | | | | | [address] | [address] [place], | | | | | [address] Mailcode: | [place] [address] | | | | | [address] Physician's | [phone] | | | | | [place], | | | | | | [place] [address] | | | | | | [phone] | | | +--------+ + + + [...] | | | | | [address] [place], | | | | | | [place] [address] | | | | | | [phone] | | | | | | | | +--------+ + + + + | 06/18/ | Procedure | Surgery | | | | 2020 | Pass | | | | +--------+ + + + + documented as of this encounter Visit Diagnoses Not on filedocumented in this encounter"
--- OUTSIDE RECORDS SUMMARY | ~2019-07-18 | XMS | Encounter Summary ---
Demographics + + + | Address | [address] | | | [place] [address] | + + + | Home Phone | | + + + | Preferred Language | Unknown | + + + | Marital Status | Single | + + + | Mormonism Affiliation | NON | + + + | Race | White | + + + | Ethnic Group | Not or | + + + Author + + + | Author | [facility] | + + + | Organization | [facility] | + + + | Address | [...] Team Providers + +------+ + | Care Radio Artist Name | Role | Phone | + +------+ + | Litzy Castillo MD | PCP | | + +------+ + Reason for Visit AUTH/CERT +--------+--------+ + + + + | Status | Reason | Specialty | Diagnoses / | Referred By | Referred To | | | | | Procedures | Contact | Contact | +--------+--------+ + + + + | | | | | | | +--------+--------+ + + + + Encounter Details +--------+ + + + + | Date | Type | Department | Care Team | Description | +--------+ + + + + | 12/14/ | Anesthesia | 6A Intra [facility] | Yadira Griffith MD | | | 2019 | Event | [facility] | [address] | | | | | Admitting Desk | [place], | | | | | Located on the | [place] [address] | | | | | floor [address] | [phone] | | | | | [address] | | | | | | [place], [place] | Jass Huynh MD | | | | | [address] | [address] | | | | | | [address] | | | | | | [place], [place] | | | | | | [address] | | | | | | [phone] | | | | | | | | +--------+ + + + + Anesthesia Record + + + + + | Procedure Name | Responsible | Anesthesia Start | Anesthesia Stop Time | | | Anesthesiologist | Time | | + + + + + | L4-5 LAMINECTOMY; | Yadira Griffith MD | 12/14/18 1159 | 12/14/18 [...] | Meds | +------+ + + + | Name | Total | + + + | midazolam | 2 mg | + + + | fentaNYL | 150 mcg | + + + | lidocaine 2% | 60 mg | + + + | propofol (DIPRIVAN) 200 mg | 100 mg | + + + | rocuronium | 50 mg | + + + | dexamethasone | 4 mg | + + + | PHENYLEPHrine | 500 mcg | + + + | ondansetron | 4 mg | + + + | sugammadex | 109 mg | + + + | ceFAZolin (ANCEF) injection 2 g | 2 g | + + + | ePHEDrine injection 10 mg | 10 mg | + + + | sodium chloride 0.9 % (NS) IV | 1,200 mL | | infusion | | + + + + + | Name | + + | O2 FR Avance (Total Liters) | + + | N2O FR Avance (l/min) | + + | Air FR Avance (l/min) | + + | Insp Sevo | + + | Et Sevo | + + | Insp N2O % | + + + + | No [...] + | Periph | 12/14/18; 1127; 12/14/18; 1656; | 12/14/18 112 by | 04/23/19 1657 by | | eral | Discharge | Sophie Lam RN | Tomi Soriano RN | | IV | | | | +--------+ + + + | ETT | 12/14/18; 1129; Endotracheal | 12/14/18 1129 by | 12/14/18 1458 by | | | Tube; Oral; Breath Sounds | Yadira Griffith MD | Jass Huynh MD | [...] | | | | | [place], | | | | | | [place] [address] | | | | | | [phone] | | | | | | | [...] | + +--------+ + + + | ANE ETT | Routin | 12/14/2018 | | | | | e | 12:38 PM | | | | | | PDT | | | + +--------+ + + + +---+--------+ | | | | | Proced | | | ure | | | Note - | | | | | | Kovar, | | | Yadira | | | J, MD | | | - | | | 12/14/ | | | 2019 | | | 12:38 | | | PM PDT | | | | | | AIRWAY | | | | | | MANAGE | | | MENT - | | | | | | ETTTim | | | e of | | | Intuba | | | tion: | | | | | | 019 | | | 12:13 | | | PMIntu | | | bation | | | | | | Reason | | | : For | | | surgic | | | al | | | proced | | | urePos | | | itioni | | | ng: | | | Supine | | | OXYGEN | | | ATIONP | | | atient | | | was | | | preoxy | | | genate | | | dGrade | | | : | | | Grade | | | 1 - | | | Ventil | | | ated | | | by | | | mask | | | Induct | | | ion:Ro | | | utineI | | | NTUBAT | | | IONATT | | | EMPT | | | 1Blade | | | Type: | | | | | | Macint | | | oshBla | | | de #: | | | 3Intub | | | ation | | | Adjunc | | | ts: w/ | | | | | | Stylet | | | Laryng | | | oscopi | | | c | | | View: | | | Grade | | | IETT | | | DETAIL | | | SETT | | | Type:S | | | tandar | | | d, | | | Hi-Lo | | | Cuffed | | | Intuba | | | tion | | | Type: | | | OralCu | | | ff | | | Status | | | : | | | Cuffed | | | Size: | | | 7ETT | | | secure | | | d with | | | | | | adhesi | | | ve | | | tapeDe | | | pth at | | | Lip: | | | 20 cm | | | CONFIR | | | MATION | | | Number | | | of | | | Attemp | | | ts: | | | 1Atrau | | | matic | | | Laryng | | | oscopy | | | Positi | | | ve for | | | | | | EtCO2: | | | Wavefo | | | rm | | | capnog | | | raphyB | | | reath | | | Sounds | | | : | | | Bilate | | | ral | | | and | | | equalN | | | ARRATI | | | VEAuth | | | orized | | | by | | | KOVAR, | | | YADIRA | | | JPerfo | | | rmed | | | by | | | KOVAR, | | | YADIRA | | | J | +---+--------+ documented in this encounter Visit Diagnoses Not on filedocumented in this encounter Administered Medications + +--------+ +------+------+------+ | Medication Order | MAR | Action | Dose | Rate | Site | | | Action | Date | | | | + +--------+ +------+------+------+ | ceFAZolin (ANCEF) injection 2 g | Given | 12/15/19 | 2 g | | | | 2 g, intravenous, PREPROCEDURE | | 19 12:40 | | | | | ONCE, 1 dose, Starting Tue | | PM PDT | | | | | 12/14/18 at 1012, Until Tue | | | | | | | 12/14/18 at 1240 | | | | | | + +--------+ +------+------+------+ +---+---+ | | | +---+---+ + +-------+ +------+---+---+ | dexamethasone (DECADRON) | Given | 12/15/19 | 4 mg | | | | injection intravenous, | | 19 12:18 | | | | | INTRAPROCEDURE PRN, Starting Tue | | PM PDT | | | | | 12/14/18 at 1218, Until Tue | | | | | | | 12/14/18 at 1459 | | | | | | + +-------+ +------+---+---+ +---+---+ | | | +---+---+ + +-------+ +------+---+---+ | ePHEDrine injection 10 mg 10 | Given | 12/15/19 | 5 mg | | | | mg, intravenous, POSTPROCEDURE | | 19 2:11 | | | | | PRN, 4 doses, Starting Tue | | PM PDT | | | | | 12/14/18 at 1249, Until Tue | | | | | | | 12/14/18 at 2301, systolic blood | | | | | | | pressure less than 80 mmHg | | | | | | | refractory to IV fluids. | | | | | | + +-------+ +------+---+---+ +-------+ +------+---+---+ | Given | 12/15/19 | 5 mg | | | | | 19 2:08 | | | | | | PM PDT | | | | +-------+ +------+---+---+ +---+---+ | | | +---+---+ + +-------+ +--------+---+---+ | fentaNYL (SUBLIMAZE) injection | Given | 12/15/19 | 50 mcg | | | | intravenous, INTRAPROCEDURE PRN, | | 19 1:57 | | | | | Starting 12/14/18 at 1210, | | PM PDT | | | | | Until 12/14/18 at 1459 | | | | | | + +-------+ +--------+---+---+ +-------+ +---------+---+---+ | Given | 12/15/19 | 100 mcg | | | | | 19 12:10 | | | | | | PM PDT | | | | +-------+ +---------+---+---+ +---+---+ | | | +---+---+ + +-------+ +-------+---+---+ | lidocaine (XYLOCAINE MPF) 2 % | Given | 12/15/19 | 60 mg | | | | (20 mg/mL) injection | | 19 12:10 | | | | | intravenous, INTRAPROCEDURE PRN, | | PM PDT | | | | | Starting Thu12/14/18 at 1210, | | | | | | | Until Thu12/14/18 at 1459 | | | | | | + +-------+ +-------+---+---+ +---+---+ | | | +---+---+ + +-------+ +------+---+---+ | midazolam (PF) (VERSED) | Given | 12/15/19 | 2 mg | | | | injection INTRAPROCEDURE PRN, | | 19 12:05 | | | | | Starting 12/14/18 at 1205, | | PM PDT | | | | | Until 12/14/18 at 1459 | | | | | | + +-------+ +------+---+---+ +---+---+ | | | +---+---+ + +-------+ +------+---+---+ | ondansetron (ZOFRAN) injection | Given | 12/15/19 | 4 mg | | | | intravenous, INTRAPROCEDURE PRN, | | 19 2:11 | | | | | Starting 12/14/18 at 1411, | | PM PDT | | | | | Until Thu12/14/18 at 1459 | | | | | | + +-------+ +------+---+---+ +---+---+ | | | +---+---+ + +-------+ +---------+---+---+ | PHENYLEPHrine 100 mcg/mL IV | Given | 12/15/19 | 100 mcg | | | | syringe intravenous, | | 19 2:05 | | | | | INTRAPROCEDURE PRN, Starting Tue | | PM PDT | | | | | 12/14/18 at 1212, Until Tue | | | | | | | 12/14/18 at 1459 | | | | | | + +-------+ +---------+---+---+ +-------+ +---------+---+---+ | Given | 12/15/19 | 100 mcg | | | | | 19 1:35 | | | | | | PM PDT | | | | +-------+ +---------+---+---+ | Given | 12/15/19 | 100 mcg | | | | | 19 1:13 | | | | | | PM PDT | | | | +-------+ +---------+---+---+ +---+---+ | | | +---+---+ + +---------+ +--------+---+---+ | propofol (DIPRIVAN) 200 mg | New Bag | 12/15/19 | 100 mg | | | | intravenous, INTRAPROCEDURE | | 19 12:11 | | | | | CONTINUOUS PRN, Starting Tue | | PM PDT | | | | | 12/14/18 at 1211, Until Tue | | | | | | | 12/14/18 at 1459 | | | | | | + +---------+ +--------+---+---+ +---+---+ | | | +---+---+ + +-------+ +-------+---+---+ | rocuronium (ZEMURON) injection | Given | 12/15/19 | 50 mg | | | | intravenous, INTRAPROCEDURE PRN, | | 19 12:11 | | | | | Starting 12/14/18 at 1211, | | PM PDT | | | | | Until 12/14/18 at 1459 | | | | | | + +-------+ +-------+---+---+ +---+---+ | | | +---+---+ + + + +---+---+---+ | sodium chloride 0.9 % (NS) IV | given by | 12/15/19 | | | | | infusion 10 mL/hr, intravenous, | | 19 2:11 | | | | | PROCEDURE CONTINUOUS, Starting | anesthes | PM PDT | | | | | 12/14/18 at 1015, Until Tue | iology | | | | | | 12/14/18 at 2301 | | | | | | + + + +---+---+---+ + + +---+---+---+ | New Bag | 12/15/19 | | | | | | 19 1:35 | | | | | | PM PDT | | | | + + +---+---+---+ | given by anesthesiology | 12/15/19 | | | | | | 19 12:40 | | | | | | PM PDT | | | | + + +---+---+---+ +---+---+ | | | +---+---+ + +-------+ +--------+---+---+ | sugammadex (BRIDION) IV | Given | 12/15/19 | 109 mg | | | | INTRAPROCEDURE PRN, Starting Tue | | 19 2:49 | | | | | 12/14/18 at 1449, Until Tue | | PM PDT | | | | | 12/14/18 at 1459 | | | | | | + +-------+ +--------+---+---+ +---+---+ | | | +---+---+ documented in this encounter"
--- OUTSIDE RECORDS SUMMARY | ~2019-07-18 | XMS | Encounter Summary ---
Demographics + + + | Address | [address] | | | [place] [address] | + + + | Home Phone | | + + + | Preferred Language | Unknown | + + + | Marital Status | Single | + + + | Pentecostal Affiliation | NON | + + + | Race | White | + + + | Ethnic Group | Not or | + + + Author + + + | Author | [facility] | + + + | Organization | [facility] | + + + | [...] Team Providers + +------+ + | Care Rn Pediatric Icu Name | Role | Phone | + +------+ + | Litzy Castillo MD | PCP | | + +------+ + Reason for Referral Diagnostic Testing (Routine) + +--------+ + + + + | Status | Reason | Specialty | Diagnoses / | Referred By | Referred To | | | | | Procedures | Contact | Contact | + +--------+ + + + + | Pending | | Radiology | Diagnoses | Jermaine, | | | Review | | | Lumbar | Rosa Isela E, | | | | | | radiculopath | [place] [address] | | | | | | y | [address] | | | | | | Procedures | [place], [place] | | | | | | MRI SPINE | [address] | | | | | | LUMBAR WO | Phone: | | | | | | CONTRAST | [phone] | | | | | | | Fax: | | | | | | | [phone] | | + +--------+ + + + + Consultation (Routine) + +--------+ + + + + | Status | Reason | Specialty | Diagnoses / | Referred By | Referred To | | | | | Procedures | Contact | Contact | + +--------+ + + + + | Pending | | Pain | Diagnoses | Dean, | | | Review | | Management | Lumbar | Rosa Isela E, | | | | | | radiculopath | [place] [address] | | | | | | y | [address] | | | | | | Procedures | [place], [place] | | | | | | CONSULT TO | [address] | | | | | | PAIN | Phone: | | | | | | MANAGEMENT | [phone] | | | | | | | Fax: | | | | | | | [phone] | | + +--------+ + + + + Reason for Visit +--------+ + | Reason | Comments | +--------+ + | Other | new symptoms | +--------+ + Encounter Details +--------+ + + + + | Date | Type | Department | Care Team | Description | +--------+ + + + + | 07/30/ | Telephone | [facility] | Jarrod Barrett MD | Other (new symptoms) | | 2018 | | [facility] [address] | [address] | | | | | [place] Mailcode: | [place], | | | | | [facility] | [place] [address] | | | | | and Healing, | [phone] | | | | | [facility] [address] | | | | | | [place], [place] | | | | | | [address] | | | | | | [phone] | | | +--------+ + + + [...] | | | | | [place], | | | | | | [place] [address] | | | | | | [phone] | | | | | | | | +--------+ + + + + | 06/18/ | Procedure | Surgery | | | | 2019 | Pass | | | | +--------+ + + + + + +---------+--------+ + + | Name | Type | Priori | Associated Diagnoses | Order Schedule | | | | ty | | | + +---------+--------+ + + | MRI SPINE LUMBAR WO | Imaging | Routin | Lumbar | Expected: | | CONTRAST | | e | radiculopathy | 08/04/2018, Expires: | | | | | | 09/04/2019 | + +---------+--------+ + + documented as of this encounter Visit Diagnoses + + | Diagnosis | + + | Lumbar radiculopathy - Primary Thoracic or lumbosacral neuritis or radiculitis, | | unspecified | + + documented in this encounter"
--- OUTSIDE RECORDS SUMMARY | ~2019-07-18 | XMS | Encounter Summary ---
Demographics + + + | Address | [address] | | | [place] [address] | + + + | Home Phone [...] + + + | Author | [facility] | + + + | Organization | [facility] | + + + | [...] Providers + +------+ + | Care Supervisor [employer]ler [employer] Name | Role | Phone | + +------+ + | Unknown | PCP | Unavailable | + +------+ + Reason for Referral Diagnostic Testing (Routine) +--------+--------+ + + + + | Status | Reason | Specialty | Diagnoses / | Referred By | Referred To | | | | | Procedures | Contact | Contact | +--------+--------+ + + + + | Closed | | | Diagnoses | El | Xxrad Vasc | | | | | S/P carotid | Mayra, | [facility] [address] | | | | | | [place], | [address] | | | | | endarterecto | [address] | | | | | my | [address] | [address] Mailcode: | | | | | Procedures | [address] | [address] | | | | | VASC LAB | Road | Physician's | | | | | CAROTID | [place], [place] | Pavilion | | | | | DUPLEX RIGHT | [address] | [place], [place] | | | | | | Phone: | [address] | | | | | | [phone] | Phone: | | | | | | Fax: | [phone] | | | | | | [phone] | Fax: | | | | | | | [phone] | +--------+--------+ + + + + Encounter Details +--------+ + + + + | Date | Type | Department | Care Team | Description | +--------+ + + + + | 12/03/ | Hospital | Diagnostic | | | | 2009 | Encounter | Radiology at [facility] | | | | | | [address] | | | | | | [place] Mailcode: | | | | | | [address] Physician's | | | | | | [place], | | | | | | [place] [address] | | | | | | [phone] | | | +--------+ + + + [...] | | | | | [place], | | | | | | [place] [address] | | | | | | [phone] | | | | | | | [...] + +--------+ + + + | [facility] CAROTID | Routin | 12/03/2009 | S/p carotid | Results for this | | DUPLEX RIGHT | e | 2:49 PM | endarterectomy | procedure are in the | | | | PDT | | results section. | + +--------+ + + + documented in this encounter Results [facility] CAROTID DUPLEX RIGHT (12/03/2009 2:49 PM PDT) + + + + + + | Component | Value | Ref Range | Performed | Pathologist | | | | | At | Signature | + + + + + + | VASC LAB | Med Rec No: | | | | | CAROTID | [id number] Name: | | | | | DUPLEX | DOV ALVARADO Birthday: | | | | | RIGHT | 1955 Sex: F | | | | | | Alias: Patient Location: | | | | | | [id number]: | | | | | | Outpatient | | | | | | ActiveOrdering | | | | | | Physician: TRU Dill | | | | | | Johnathan TRIMBLE VL | | | | | | CAROTID DUPLEX [address] RT | | | | | | completed on 12/03/2009 | | | | | | 2:49 PMAccession # | | | | | | [id number] | | | | | | RESULT:CEREBROVASCULAR | | | | | | DUPLEX STUDY: | | | | | | 12/03/2009 Dictated | | | | | | 12/03/2009 FINDINGS: | | | | | | Arm blood pressures | | | | | | are approximately 140 | | | | | | mmHg | | | | | | systolicbilaterally. | | | | | | There is moderate | | | | | | plaque in the right | | | | | | common internal,and | | | | | | external carotid | | | | | | arteries. Elevated | | | | | | peak systolic velocities | | | | | | arenoted in the right | | | | | | common carotid artery at | | | | | | 196 cm/sec. In the | | | | | | rightinternal carotid | | | | | | artery, there is | | | | | | spectral broadening | | | | | | during systole,but no | | | | | | significant velocity | | | | | | peak accelerations. | | | | | | There is an | | | | | | elevatedvelocity in the | | | | | | right external carotid | | | | | | artery at 234 cm/sec. | | | | | | Theright vertebral | | | | | | artery is patent with | | | | | | antegrade flow. The left | | | | | | carotid and vertebral | | | | | | arteries were not | | | | | | evaluated. IMPRESSION: | | | | | | Abnormal examination | | | | | | with evidence of | | | | | | approximately 50% | | | | | | stenosis inthe right | | | | | | common carotid artery | | | | | | with greater than 50% | | | | | | stenosis in theright | | | | | | external carotid artery, | | | | | | but less than 50% | | | | | | stenosis in theright | | | | | | internal carotid artery. | | | | | | The right vertebral | | | | | | artery appearsnormal. | | | | | | In comparison with the | | | | | | patient's previous | | | | | | study 11/16/2009, | | | | | | there is a lesser degree | | | | | | of stenosis in the | | | | | | rightinternal carotid | | | | | | artery based on the | | | | | | velocity measurements on | | | | | | thecurrent examination, | | | | | | however, an increased | | | | | | amount of stenosis in | | | | | | theright common carotid | | | | | | artery and external | | | | | | carotid artery. END | | | | | | IMPRESSION I have | | | | | | personally viewed this | | | | | | procedure/exam and | | | | | | reviewed this report. | | | | | | STATUS FINAL / Dr. | | | | | | TRU JUNIOR | | | | | | NEERU PRELIMINARY | | | | | | - UNSIGNED / Cathie | | | | | | Margarita | | | | + + + [...] + | Diagnosis | + + | S/P carotid endarterectomy Other postprocedural status | + + documented in this encounter"
--- OUTSIDE RECORDS SUMMARY | ~2019-07-18 | XMS | Encounter Summary ---
Demographics + + + | Address | [address] | | | [place] [address] | + + + | Home Phone | | + + + | Preferred Language | Unknown | + + + | Marital Status | Single | + + + | Sabianism Affiliation | NON | + + + [...] Team Providers + +------+ + | Care Guitar Teacher Name | Role | Phone | + +------+ + | Litzy Castillo MD | PCP | | + +------+ + Encounter Details +--------+ + + + + | Date | Type | Department | Care Team | Description | +--------+ + + + + | 12/16/ | Pharmacy | Outpatient Retail | | | | 2018 | Visit | [facility] | | | | | | [address] | | | | | | [place], | | | | | | [place] [address] | | | | | | [phone] | | | +--------+ + + + [...] | | | | | [place], | | | | | | [place] [address] | | | | | | [phone] | | | | | | | | +--------+ + + + + | 06/18/ | Procedure | Surgery | | | | 2020 | Pass | | | | +--------+ + + + + documented as of this encounter Visit Diagnoses Not on filedocumented in this encounter"
--- OUTSIDE RECORDS SUMMARY | ~2019-07-18 | XMS | Encounter Summary ---
Demographics + + + | Address | [address] | | | [place] [address] | + + + | Home Phone [...] + + + | Author | [facility] | + + + | Organization | [facility] | + + + | [...] Team Providers + +------+ + | Care Bessemer Converter Blower Name | Role | Phone | + [...] | | of carotid | Harlan | [facility] | | | | | artery | [address] | Rd Mailcode: | | | | | without | [place], [place] | [address] | | | | | mention of | [address] | Physician's | | | | | cerebral | Phone: | Pavilion | | | | | infarction | [phone] | [place], [place] | | | | | Atherosclero | Fax: | [address] | | | | | sis of | [phone] | Phone: | | | | | [place] | | [phone] | | | | | arteries of | | Fax: | | | | | the | | [phone] | | | | | extremities | [...] | | +--------+--------+ + + + + Diagnostic Testing (Routine) +--------+--------+ + + + + | Status | Reason | Specialty | Diagnoses / | Referred By | Referred To | | | | | Procedures | Contact | Contact | +--------+--------+ + + + + | Closed | | Radiology | Diagnoses | Dmitriy, | [facility] | | | | | Occlusion | MD Kaveh | [address] | | | | | and stenosis | [address] | [address] | | | | | of carotid | [place] | [facility] | | | | | artery | Ana | [address] Mailcode: | | | | | without | [place], [place] | [address] | | | | | mention of | [address] | Physician's | | | | | cerebral | Phone: | Pavilion | | | | | infarction | [phone] | [place], [place] | | | | | Atherosclero | Fax: | [address] | | | | | sis of | [phone] | Phone: | | | | | [place] | | [phone] | | | | | arteries of | | Fax: | | | | | the | | [phone] | | | | | extremities | | | | | | | with | | | | | | | intermittent | | | | | | | | | | | | | | claudication | | | | | | | Procedures | | | | | | | VASC LAB | | | | | | | CAROTID | | | | | | | DUPLEX | | | | | | | COMPLETE | | | | | | | BILATERAL | | | +--------+--------+ + + + + Reason for Visit Office Visit - E/M Services (Routine) +--------+--------+ + + + + | Status | Reason | Specialty | Diagnoses / | Referred By | Referred To | | | | | Procedures | Contact | Contact | +--------+--------+ + + + + | Closed | | Vascular | | Non-[facility] | [facility] | | | | Surgery | | Epic Dept | Surg Ppv | | | | | | | [address] | | | | | | | [address] | | | | | | | [place] Mailcode: | | | | | | | [address] | | | | | | | Physician's | | | | | | | Jenna | | | | | | | [place], [place] | | | | | | | [address] | | | | | | | Phone: | | | | | | | [phone] | | | | | | | Fax: | | | | | | | [phone] | +--------+--------+ + + + + Encounter Details +--------+---------+ + + + | Date | Type | Department | Care Team | Description | +--------+---------+ + + + | 05/28/ | Office | Vascular Surgery | Kaveh Arroyo MD | Occlusion and | | 2010 | Visit | at [facility] 2nd Floor | [address] | stenosis of carotid | | | | [address] [facility] | [address] [place], | artery without | | | | [address] Mailcode: | [place] [address] | mention of cerebral | | | | [address] Physician's | [phone] | infarction; | | | | [address] [place], | | Atherosclerosis of | | | | [place] [address] | | [place] arteries of | | | | [phone] | | the extremities with | | [...] + + + | Blood Pressure | 138/62 | 05/28/2011 1:04 PM | | | | | PDT | | + + + + + | Pulse | 69 | 05/28/2011 1:04 PM | | | | | PDT | | + + + + + | Temperature | 36.6 C (97.8 F) | 05/28/2011 1:04 PM | | | | | PDT | | + + + + + | Respiratory Rate | 18 | 05/28/2011 1:04 PM | | | | | PDT | | + + + + + | Oxygen Saturation | 100% | 05/28/2011 1:04 PM | | | | | PDT | | + + + + + | Inhaled Oxygen | - | - | | | Concentration | | | | + + + + + | Weight | 62.6 kg (138 lb) | 05/28/2011 1:04 PM | | | | | PDT | | + + + + + | Height | 152.4 cm (5') | 05/28/2011 1:04 PM | | | | | PDT | | + + + + + | Body Mass Index | 26.95 | 05/28/2011 1:04 PM | | | | | PDT | | + + + + + documented in this encounter Progress Notes Germán Whitten Md - 05/28/2011 2:33 PM PDT VASCULAR AND ENDOVASCULAR SURGERY CLINIC S: Ms. Sun is a 56 yo female with PAD, HTN, HLD and COPD with history of right aorto-femora l bypass in the ([place]) and right carotid endarterectomy in October 2009 ([facility]). Prior to endarterectomy she had 80% stenosis of her right ICA and a completely occluded left ICA. She was last seen in this clinic in November 2009. She is presenting today with a recent hx of multiple TIA-like episodes. Last Thursday she had a 20 minute episode of left leg paralys is/numbness. On Thursday she had similar Sx in her right arm for 2.5 hrs and presented to the [facility] ED where she had a head CT and was sent home. Yesterday evening she had an episo de of both legs giving out, with her son describing a concomitant left facial droop. She wa s taken by ambulance back to the ED, where it was recommended she come to [facility]. She feels t hat she is having TIA's and is concerned. She also describes pain in her hips and left leg with walking short distances. She has recently decreased her smoking from 3 ppd to 1 ppd be cause of financial limitations. She denies FISCHER, CP, SOB, dizziness/LH or visual changes. Donald perez is asymptomatic in the clinic today. Current outpatient prescriptions: Albuterol 90 mcg/Actuation Inhalation Aerosol, Inhale 1-2 Puffs every four hours as needed. , Disp: , Rfl: aspirin 325 mg Oral Tablet, Take 1 Tab by mouth once daily., Disp: 30 Each, Rfl: 6 atenolol 50 mg Oral Tablet, Take 50 mg by mouth two times daily., Disp: , Rfl: ipratropium (ATROVENT HFA) 17 mcg/Actuation Inhalation HFA Aerosol Inhaler, Inhale 2 Puffs two times daily., Disp: , Rfl: simvastatin 20 mg Oral Tablet, Take 20 mg by mouth once daily in the evening. , Disp: , Rf l: traMADol 50 mg Oral Tablet, Rapid Dissolve, Take by mouth. , Disp: , Rfl: O: Filed Vitals: 05/28/2011 1:04 PM Height: 1.524 m (5') Weight: 62.596 kg (138 lb) BP: 138/62 Pulse: 69 Temp: 36.6 C (97.8 F) Resp: 18 SpO2: 100% PainSc: 0 - Zero BMI: 26.95 kg/(m^2) Gen: Well appearing, NAD HEENT: Well healed incision over site of right ICA endarterectomy, palpable carotid pulse o n right but not left. CV: RRR no mrg Resp: Hyperresonance to percussion, diffuse wheezes, distant breath sounds Abd: Soft, NT, ND, nl BS, no masses, well healed midline laparotomy scar from aorto-fem by pass. The bowel sounds are normoactive. The abdomen is soft, nondistended, and nontender. Th ere are no palpable masses or aneurysms. Ext: WWP; right radial pulse absent, left present; ulnar, brachial, femoral (R>>L), popliteal and PT pulses palpable trace on the right, absen t on the left; monophasic DP doppler signals bilaterally. CT NECK AND HEAD: The arch and great vessels appear patent. The right common carotid and in ternal carotid arteries are patent without apparent stenosis, based on CT scan. I can see pa tent MCAs, ACAs bilaterally. There are patent remnant arteries, and I think that these replace the freight handler bilaterally. A/P: Ms. Sun is a 56 yo female with an extensive hx of PAD and carotid artery dz, now with a 1 w [place] hx of episodes that are historically consistent with TIA's. 1) CVD/TIA: Asked stroke neurology for formal stroke evaluation and w/u. She is currently on daily ASA. The Stroke Team recommended the following: - Add plavix to aspirin for total duration of 3 mos. - Add pletal 100mg BID for further antiplatelet activity, duration indefinite for now. I wrote prescriptions for both of these today. Dr. Maurice Bojorquez will see Ms. Sun in his clin ic in 1 month. Will also get a carotid duplex as a baseline study today. RTC 6 mos to vascul ar clinic for carotid repeat duplex scan. 2) PAD: Intermittent claudication of the left leg, with weak left femoral pulses. Will o btain bilateral LE ABIs today and have her RTC 6 mos for repeat studies as well. I spent over 60 minutes with the patient, performing a history and physical examination. Ov er half of the time was spent in counseling. I counseled her regarding smoking cessation. Ri sks of , amputation, cancer discussed with them. KAVEH ARROYO MD VASCULAR SURGERY [address] [facility] Mailcode: [address] [place] [id number] documented in this enco unter Plan of Treatment +--------+ + + + + | Date | Type | Specialty | Care Team | Description | +--------+ + + + + | 06/17/ | Hospital | Adult Acute Care | Jarrod Barrett MD | | | 2019 | Encounter | | [address] | | | | | | [place], | | | | | | [place] [address] | | | | | | [phone] | | | | | | | | +--------+ + + + + | 06/18/ | Procedure | Surgery | | | | 2019 | Pass | | | | +--------+ + + + + documented as of this encounter Results JE VARGAS (05/28/2011 5:30 PM PDT) + + + + + + | Component | Value | Ref Range | Performed | Pathologist | | | | | At | Signature | + + + + + + | VASC LAB | Med Rec No: | | | | | ANKLE BRACH | [id number] Name: | | | | | INDICS | DARCY SUN Birthday: | | | | | WITH [...] | | | | | PMAccession # [id number] | | | | | | RESULT:LOWER [...] the | | | | | | qzd-at-leaqig arteries | | | | | | [...] | | + +---------+ + + | [facility] DEPARTMENT OF | | | | | RADIOLOGY | | | | + +---------+ + + VASC LAB CAROTID DUPLEX COMPLETE BILATERAL (05/28/2011 5:30 PM PDT) + + + + + + | Component | Value | Ref Range | Performed | Pathologist | | | | | At | Signature | + + + + + + | VASC LAB | Med Rec No: | | | | | CAROTID | [id number] Name: | | | | | DUPLEX | DARCY SUN Birthday: | | | | | COMPLETE | 1955 Sex: F | | | | | BILATERAL | Alias: Patient Location: | | | | | | [id number]: | | | | | | Outpatient Preadmit | | | | | | Ordering Physician: | | | | | | KAVEH ARROYO M.D. | | | | | | VACZIYADI VL CAROTID | | | | | | DUPLEX COMP MAITE | | | | | | completed on 05/28/2011 | | | | | | 5:30 PMAccession # | | | | | | [id number] | | | | | | RESULT:CEREBROVASCULAR | | | | | | EXAMINATION: | | | | | | 05/28/2011 Dictated | | | | | | 05/29/2011 INDICATION: | | | | | | Carotid stenosis. | | | | | | FINDINGS: The right | | | | | | arm blood pressure | | | | | | measures 131 mmHg and | | | | | | theleft, 134 mmHg. | | | | | | Duplex examination of | | | | | | the carotid | | | | | | bifurcationdemonstrates | | | | | | minimal plaquing of the | | | | | | right internal carotid | | | | | | arterywith moderate | | | | | | plaquing of the right | | | | | | external carotid artery. | | | | | | Theleft internal | | | | | | carotid artery is | | | | | | occluded. The left | | | | | | external carotidartery | | | | | | is patent with minimal | | | | | | plaquing. Both | | | | | | vertebral arteries | | | | | | arepatent with antegrade | | | | | | flow. IMPRESSION: Less | | | | | | than 50% diameter | | | | | | stenosis of the right | | | | | | internal carotid | | | | | | arterywith greater than | | | | | | 50% diameter stenosis of | | | | | | the right external | | | | | | carotidartery. The | | | | | | left internal carotid | | | | | | artery is occluded. | | | | | | There is lessthan 50% | | | | | | diameter stenosis of the | | | | | | left external carotid | | | | | | artery. END | | | | | [...] Final/Electronically | | | | | | jo ann / Laura Dill | | | | | | Kvng 05/30/2011 | | | | | | 2:08PM Preliminary / | | | | | | Avril Donato | | | | | | 05/29/2011 8:38 PM | | | | + + + + + + + + | Specimen | + + | | + + + +---------+ + + | Performing | Address | City/State/Zipcode | Phone Number | | Organization | | | | + +---------+ + + | [facility] DEPARTMENT OF | | | | | RADIOLOGY | | | | + +---------+ + + documented in this encounter Visit Diagnoses + + | Diagnosis | + + | Occlusion and stenosis of carotid artery without mention of cerebral infarction | + + | Atherosclerosis of [place] arteries of the extremities with intermittent claudication | + + documented in this encounter"
--- OUTSIDE RECORDS SUMMARY | ~2019-07-18 | XMS | Encounter Summary ---
Demographics + + + | Address | [address] | | | [place] [address] | + + + | Home Phone | | + + + | Preferred Language | Unknown | + + + | Marital Status | Single | + + + | Jehovah'S Witness Affiliation | NON | + + + [...] Team Providers + +------+ + | Care Space Operations Officer Name | Role | Phone | + [...] | | | | | CAROTID | [place], [place] | Pavilion | | | | | DUPLEX RIGHT | [address] | [place], [place] | | | | | | Phone: | [address] | | | | | | [phone] | Phone: | | | | | | Fax: | [phone] | | | | | | [phone] | Fax: | | | | | | | [phone] | +--------+--------+ + + + + Encounter [...] | | | | | | [place] [address] | | | | | | [phone] | | | +--------+ + + + [...] | | | | | [place] [address] [place], | | | | | | [place] [address] | | | | | | [phone] | | | | | | | [...] + + documented in this encounter Results [facility] LAB CAROTID DUPLEX RIGHT (12/03/2009 2:49 PM PDT) + + + + + + | Component | Value | Ref Range | Performed | Pathologist | | | | | At | Signature | + + + + + + | VASC LAB | Med Rec No: | | | | | CAROTID | [id number] Name: | | | | | DUPLEX | DOV ALVARADO Birthday: | | | | | RIGHT | 1955 Sex: F | | | | | | Alias: Patient Location: | | | | | | [id number]: | | | | | | Outpatient [...] # | | | | | | [id number] | | | | | | RESULT:CEREBROVASCULAR [...]
--- OUTSIDE RECORDS SUMMARY | ~2019-07-18 | XMS | Clinical Summary ---
Demographics + + + | Address | [address] | | | [place] [address] | + + + | Home Phone | | + + + | Preferred Language | Unknown | + + + | Marital Status | Single | + + + | Adventism Affiliation | Unknown | + + + | Race | Unknown | + + + | Ethnic Group | Unknown | + + + Author + + + | Author | [facility] [employer] [facility] (Historical as of | | | 04-09-19) | + + + | Organization | [facility] [employer] [facility] (Historical as of | | | 04-09-19) [...] Team Providers + +------+ + | Care Psychology Department Chair Name | Role | Phone | + [...] +------+-------+ + | MEDICARE | MEDICA | [id number] | | | [address] | | | RE | | | | [place] [address] | | | IP-OP | | | | | + +--------+ +------+-------+ + | - WPS - | TRICAR | [id number] | | | [address] [address] | | | [place] | | | | [place] | | | LIFE | | | | [address] | + +--------+ +------+-------+ + | MEDICAID | MEDICA | [id number] | | | [address] | | | ID | | | | [place], [place] | | | [place] | | | | [address] | + +--------+ +------+-------+ + + +--------+ [...] | | | [address]anna | | | [address] | [place] [address] | + +--------+ +--------+ + +"
--- OUTSIDE RECORDS SUMMARY | ~2019-07-18 | XMS | Encounter Summary ---
Demographics + + + | Address | [address] | | | [place] [address] | + + + | Home Phone | | + + + | Preferred Language | Unknown | + + + | Marital Status | Single | + + + | Christian Affiliation | NON | + + + | Race | White | + + + | Ethnic Group | Not or | + + + Author + + + | Author | [facility] | + + + | Organization | [facility] | + + + | [...] Team Providers + +------+ + | Care Inspector Rag Sorting Name | Role | Phone | + +------+ + | Litzy Castillo MD | PCP | | + +------+ + Reason for Visit + + + | Reason | Comments | + + + | Referral | | + + + Encounter Details +--------+ + + + + | Date | Type | Department | Care Team | Description | +--------+ + + + + | 07/19/ | Telephone | [facility] | Iván, | Referral | | 2017 | | [facility] | MD Marichuy [address] | | | | | [facility] | [address] | | | | | [address] | [place], [place] | | | | | [place] [address] Mailcode: | [address] | | | | | [address] [place] | [phone] | | | | | [facility] | | | | | | [place], [place] | | | | | | [address] | | | | | | [phone] | | | +--------+ + + + [...] | | | | | [place], | | | | | | [place] [address] | | | | | | [phone] | | | | | | | | +--------+ + + + + | 06/18/ | Procedure | Surgery | | | | 2019 | Pass | | | | +--------+ + + + + documented as of this encounter Visit Diagnoses Not on filedocumented in this encounter"
--- OUTSIDE RECORDS SUMMARY | ~2019-07-18 | XMS | Encounter Summary ---
Demographics + + + | Address | [address] | | | [place] [address] | + + + | Home Phone | | + + + | Preferred Language | Unknown | + + + | Marital Status | | + + + | Buddhist Affiliation | Unknown | + + + | Race | Unknown | + + + | Ethnic Group | Unknown | + + + Author + + + | Author | [facility] | | | and [place] | + + + | Organization | [facility] | | [...] Team Providers + +------+ + | Care Intermediate Frame Tender Name | Role | Phone | + +------+ + PCP | Unavailable | + +------+ + Encounter Details +--------+ + + + + | Date | Type | Department | Care Team | Description | +--------+ + + + + | 04/01/ | Hospital | [facility] | Fernie Capellan O, | | | 2011 | Encounter | HOSPITAL XRAY [address] | [address], | | | | | [address] | [place], [place] | | | | | [place], [place] | [address] | | | | | [address] | [phone] | | | | | [phone] | | | +--------+ + + + [...] | | | | | [place] [address] | | | | | | [phone] | | | | | | | | +--------+---------+ + + + documented as of this encounter Visit Diagnoses Not on filedocumented in this encounter"
--- OUTSIDE RECORDS SUMMARY | ~2019-07-18 | XMS | Encounter Summary ---
Demographics + + + | Address | [address] | | | [place] [address] | + + + | Home Phone | | + + + | Preferred Language | Unknown | + + + | Marital Status | | + + + | Restoration Affiliation | Unknown | + + + | Race | Unknown | + + + | Ethnic Group | Unknown | + + + Author + + + | Author | [facility] | | | and [place] | + + + | Organization | [facility] | | [...] Team Providers + +------+ + | Care Sas Developer Analyst Name | Role | Phone | + +------+ + PCP | Unavailable | + +------+ + Encounter Details +--------+ + + + + | Date | Type | Department | Care Team | Description | +--------+ + + + + | 07/20/ | Hospital | [facility] | Matheus Corado MD | | | 2011 | Encounter | [facility] | [address] | | | | | [facility] [address] | [place], [place] | | | | | [address], | [address] | | | | | [place] [address] | | | | | | [phone] | | | +--------+ + + + [...] | | | | | [place] [address] | | | | | | [phone] | | | | | | | | +--------+---------+ + + + documented as of this encounter Visit Diagnoses Not on filedocumented in this encounter"
--- OUTSIDE RECORDS SUMMARY | ~2019-07-18 | XMS | Encounter Summary ---
Demographics + + + | Address | [address] | | | [place] [address] | + + + | Home Phone | | + + + | Preferred Language | Unknown | + + + | Marital Status | | + + + | Jainism Affiliation | Unknown | + + + | Race | Unknown | + + + | Ethnic Group | Unknown | + + + Author + + + | Author | [facility] | | | and [place] | + + + | Organization | [facility] | | | and [...] Team Providers + +------+ + | Care Vacuum Cleaner Assembler Name | Role | Phone | + +------+ + | Litzy Castillo MD | PCP | | + +------+ + Encounter Details +--------+ + + + + | Date | Type | Department | Care Team | Description | +--------+ + + + + | 08/28/ | Hospital | [facility] | Conversion | Pain | | 2019 | Encounter | CONVERSION [address] | Transaction, | | | | [address] | Provider Unknown | | | | | [place], [place] | [phone] | | | | | [address] | | | | | | [phone] | | | +--------+ + + + [...] [address] | | | | | | [place] [address] | | | | | | [phone] | | | | | | | | +--------+---------+ + + + documented as of this encounter Procedures + +--------+ + + + | Procedure Name | Priori | Date/Time | Associated Diagnosis | Comments | | | ty | | | | + +--------+ + + + | XR CHEST 1 VIEW | Routin | 11/15/2009 | | Results for this | | | e | 5:02 AM | | procedure are in the | | | | PDT | | results section. | + +--------+ + + + documented in this encounter Results XR Chest 1 Vw (11/15/2009 5:02 AM PDT) + + | Specimen | [...]
--- OUTSIDE RECORDS SUMMARY | ~2019-07-18 | XMS | Encounter Summary ---
Demographics + + + | Address | [address] | | | [place] [address] | + + + | Home Phone | | + + + | Preferred Language | Unknown | + + + | Marital Status | Single | + + + | Pentecostalism Affiliation | NON | + + + [...] Team Providers + +------+ + | Care Research Physician Name | Role | Phone | + +------+ + | Heide Bhatti | PCP | | + +------+ + Encounter Details +--------+ + + + + | Date | Type | Department | Care Team | Description | +--------+ + + + + | 12/03/ | Telephone | Vascular Surgery | Kaveh Izaguirre MD | | | 2011 | | at [facility] 2nd Floor | [address] | | | | | [address] | [address] [place], | | | | | [address] Mailcode: | [place] [address] | | | | | [address] Physician's | [phone] | | | | | [place], | | | | | | [place] [address] | | | | | | [phone] | | | +--------+ + + + [...] | | | | | [place] [address] [place], | | | | | | [place] [address] | | | | | | [phone] | | | | | | | | +--------+ + + + + | 06/18/ | Procedure | Surgery | | | | 2020 | Pass | | | | +--------+ + + + + documented as of this encounter Visit Diagnoses + + | Diagnosis | + + | Occlusion and stenosis of carotid artery without mention of cerebral infarction - | | Primary | + + | Atherosclerosis of [place] arteries of the extremities with intermittent claudication | + + documented in this encounter"
--- OUTSIDE RECORDS SUMMARY | ~2019-07-18 | XMS | Encounter Summary ---
Demographics + + + | Address | [address] | | | [place] [address] | + + + | Home Phone | | + + + | Preferred Language | Unknown | + + + | Marital Status | Single | + + + | Christianity Affiliation | NON | + + + | Race | White | + + + | Ethnic Group | Not or | + + + Author + + + | Author | [facility] | + + + | Organization | [facility] | + + + | [...] Team Providers + +------+ + | Care Prepress Technician Name | Role | Phone | + [...] + + + + | 12/14/ | Hospital | [facility] [address] | Jarrod Barrett MD | | | 2019 | Encounter | [address] | [address] | | | | | [id number] [place], | | | | | [place], | [place] [address] | | | | | [place] [address] | [phone] | | | | | [phone] | | | +--------+ + + + [...] + + + | Blood Pressure | 122/66 | 12/14/2018 4:30 PM | | | | | PDT | | + + + + + | Pulse | 67 | 12/14/2018 4:30 PM | | | | | PDT | | + + + + + | Temperature | 36.5 C (97.7 F) | 12/14/2018 4:00 PM | | | | | PDT | | + + + + + | Respiratory Rate | 13 | 12/14/2018 4:30 PM | | | | | PDT | | + + + + + | Oxygen Saturation | 100% | 12/14/2018 4:30 PM | | | | | PDT | | + + + + + | Inhaled Oxygen | - | - | | | Concentration | | | | + + + + + | Weight | 54.4 kg (119 lb 14.9 | 12/14/2018 10:12 AM | | | | oz) | PDT | | + + + + + | Height | 152.4 cm (5') | 12/14/2018 10:12 AM | | | | | PDT | | + + + + + | Body Mass Index | 23.42 | 12/14/2018 10:12 AM | | | | | PDT | | + + + + + documented in this encounter Medications at Time of Discharge [...] + + +---------+ + + | aspirin EC 81 mg | Take 81 mg by mouth | | 0 | | | | oral tablet,delayed | once daily. | | | | | | release (DR/EC) | | | | | | + + + +---------+ + + | atenolol 100 mg | Take 100 mg by mouth | | 0 | | | | oral tablet | once daily. | | | | | + + [...] + + +---------+ + + | levothyroxine 50 | Take 50 mcg by mouth | | 0 | | | | mcg oral tablet | before breakfast. | | | | | + + + +---------+ + + | valsartan 80 mg | 80 mg once daily. | | 0 | 02/23/20 | | | oral tablet | | | | 18 | | + + + +---------+ + + documented as of this encounter Progress Notes Lilia De La Torre MD - 12/14/2018 3:29 PM PDTFormatting of this note might be different fro m the original. NEUROSURGERY Post-op check S/p 1. RIGHT open L4-5 hemilaminectomy 2. RIGHT L5 foraminotomy 3. Resection of synovial cyst Ht 1.524 m (5'), Wt 54.4 kg (119 lb 14.9 oz), BP 118/72, Pulse 90, Temperature 36.6 C (97 .9 F), RR 20, SpO2 95%, BMI 23.42 kg/(m^2). Facility age limit for growth percentiles is 18 years. 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 - Home today when meeting discharge criteria - Okay to continue ASA 81 mg now, discontinue Plavix per Neurology recommendations - Frequent neuro checks - Maintain adequate analgesia - Advance diet as tolerated LILIA DE LA TORRE MD Neurosurgery Resident 3:30 PM, 12/14/2018 Pager #[phone] documented in this en counter Plan of Treatment +--------+ + + + + | Date | Type | Specialty | Care Team | Description | +--------+ + + + + | 06/17/ | Hospital | Adult Acute Care | Jarrod Barrett MD | | | 2019 | Encounter | | [address] | | | | | | [place], | | | | | | [place] [address] | | | | | | [phone] | | | | | | | | +--------+ + + + + | 06/18/ | Procedure | Surgery | | | 2019 | Pass | | | | +--------+ + + + + documented as of this encounter Procedures + +--------+ + + + | Procedure Name | Priori | Date/Time | Associated Diagnosis | Comments | | | ty | | | | + +--------+ + + + | INTRAPROCEDURE | Urgent | 12/14/2018 | | Results for this | | IMAGING | | 3:29 PM | | procedure are in the | | | | PDT | | results section. | + +--------+ + + + | X-RAY SPINE | Urgent | 12/14/2018 | | Results for this | | LUMBOSACRAL 1 VIEW | | 3:14 PM | | procedure are in the | | | | PDT | | results section. | + +--------+ + + + | X-RAY FLUOROSCOPY IN | Urgent | 12/14/2018 | | Results for this | | OR > 1 HOUR | | 3:13 PM | | procedure are in the | | | | PDT | | results section. | + +--------+ + + + | CAPILLARY BLOOD | Routin | 12/14/2018 | Claudication, | Results for this | | GLUCOSE (NO CHG), | e | 3:08 PM | intermittent (HCC) | procedure are in the | | POC | | PDT | | results section. | + +--------+ + + + | PROCEDURE NOTE | Routin | 12/14/2018 | | Results for this | | | e | 2:52 PM | | procedure are in the | | | | PDT | | results section. | + +--------+ + + + | SURGICAL PATHOLOGY | Routin | 12/14/2018 | | Results for this | | | e | 1:36 PM | | procedure are in the | | | | PDT | | results section. | + +--------+ + + + | RESECTION OF SPINAL | Electi | 12/14/2018 | M71.38 Other | | | CORD TUMOR | ve | 12:01 PM | bursal cyst, other | | | | Surgic | PDT | site M48.062 | | | | al | | Spinal stenosis, | | | | | | lumbar region with | | | | | | neurogenic | | | | | | claudication M54.16 | | | | | | Radiculopathy, | | | | | | lumbar region | | + +--------+ + + + | LUMBAR LAMINECTOMY | Electi | 12/14/2018 | M71.38 Other | | | | ve | 12:01 PM | bursal cyst, other | | | | Surgic | PDT | site M48.062 | | | | al | | Spinal stenosis, | | | | | | lumbar region with | | | | | | neurogenic | | | | | | claudication M54.16 | | | | | | Radiculopathy, | | | | | | lumbar region | | + +--------+ + + + | CBC (HEMOGRAM) ONLY | Routin | 12/14/2018 | | Results for this | | | e | 11:46 AM | | procedure are in the | | | | PDT | | results section. | + +--------+ + + + | CBC ONLY | Routin | 12/14/2018 | | Results for this | | | e | 11:46 AM | | procedure are in the | | | | PDT | | results section. | + +--------+ + + + | COAGULOPATHY PANEL | Routin | 12/14/2018 | | Results for this | | (INR,APTT,FIBRINOGEN | e | 11:43 AM | | procedure are in the | | ) | | PDT | | results section. | + +--------+ + + + | ANTIBODY SCREEN | Urgent | 12/14/2018 | | Results for this | | | | 11:09 AM | | procedure are in the | | | | PDT | | results section. | + +--------+ + + + | TYPE AND SCREEN | Urgent | 12/14/2018 | | Results for this | | | | 11:09 AM | | procedure are in the | | | | PDT | | results section. | + +--------+ + + + | ABO & RH TYPE | Urgent | 12/14/2018 | | Results for this | | | | 11:09 AM | | procedure are in the | | | | PDT | | results section. | + +--------+ + + + | CAPILLARY BLOOD | Routin | 12/14/2018 | Claudication, | Results for this | | GLUCOSE (NO CHG), | e | 10:50 AM | intermittent (HCC) | procedure are in the | | POC | | PDT | | results section. | + +--------+ + + + | INTRAPROCEDURE | Routin | 12/14/2018 | | Results for this | | IMAGING | e | 10:12 AM | | procedure are in the | | | | PDT | | results section. | + +--------+ + + + documented in this encounter Results INTRAPROCEDURE IMAGING (12/14/2018 3:29 PM PDT) + + | Specimen | + + | | + + + + + | Narrative | Performed At | + + + | See admission or procedure notes for details of any intraprocedure | [facility] | | images obtained. | RADIOLOGY | + + + + +---------+ + + | Performing | Address | City/State/Zipcode | Phone Number | | Organization | | | | + +---------+ + + | [facility] | | | | + +---------+ + + X-RAY SPINE LUMBOSACRAL 1 VIEW (12/14/2018 3:14 PM PDT) + + | Specimen | + + | | + + + + + | Narrative | Performed At | + + + | - At the time of the study, no professional interpretation was | [facility] | | requested. - | RADIOLOGY | + + + + +---------+ + + | Performing | Address | City/State/Zipcode | Phone Number | | Organization | | | | + +---------+ + + | [facility] | | | | + +---------+ + + X-RAY FLUOROSCOPY IN OR > 1 HOUR (12/14/2018 3:13 PM PDT) + + | Specimen | + + | | + + + + + | Narrative | Performed At | + + + | - At the time of the study, no professional interpretation was | [facility] | | requested. - | RADIOLOGY | + + + + +---------+ + + | Performing | Address | City/State/Zipcode | Phone Number | | Organization | | | | + +---------+ + + | [facility] | | | | + +---------+ + + CAPILLARY BLOOD GLUCOSE (NO CHG), POC (12/14/2018 3:08 PM PDT) + +---------+ + + + | Component | Value | Ref Range | Performed | Pathologist | | | | | At | Signature | + +---------+ + + + | BLOOD | 116 (H) | 60 - 99 mg/dL | [facility] - | | | GLUCOSE, | | | [facility] | | | POC | | | [facility] | | | | | | OF CARE | | | | | | TESTS | | + +---------+ + + + + + | Specimen | + + | | + + + + + + + | Performing | Address | City/State/Zipcode | Phone Number | | Organization | | | | + + + + + | [facility] | [address] | [place], [place] | | | [address] | [address] | [address] | | | TESTS | | | | + + + + + PROCEDURE NOTE (12/14/2018 2:52 PM PDT) + + + | Narrative | Performed At | + + + | Jarrod Barrett MD 12/17/2018 10:29 AM Date of Service: | | | 12/14/2018 Attending Surgeon: Jarrod | | | MD Nena Tax Collector(s): | | | Lilia De La Torre MD. | | | Postoperative Diagnoses: 1. | | | Lumbar stenosis with radiculopathy. 2. Right L4-5 | | | synovial cyst Postoperative Diagnoses: 1. Lumbar | | | stenosis with radiculopathy. 2. Right L4-5 synovial cyst | | | Procedures Performed: 1. Right L4-5 | | | hemilaminectomy and medial facetectomy. 2. Right L4-5 | | | foraminotomy. 3. Right L5-S1 foraminotomy. 4. Resection | | | of right L4-5 synovial cyst. 5. Operative microscope. 6. | | | Intraoperative fluoroscopy. Estimated Blood Loss: | | | 50 mL. Specimens: Synovial cyst Indication: Ms. Sun is a | | | 63-year-old female who presented to [facility] with low back | | | pain with radiation into the right gluteal region and upper thigh. | | | MRI demonstrated right L4-5 stenosis with synovial cyst. She | | | underwent a right L5 transforaminal epidural steroid injection in | | | September that led to complete relief of her leg pain for 4 weeks | | | before the pain recurred. Given her clinical and imaging findings, | | | surgery was recommended. The risks, benefits, indications, and | | | expected recovery of the planned procedure were reviewed with the | | | patient. She agreed to proceed and consented to surgery | | | well-informed. Procedure In Detail: The patient was brought to | | | OR 12 and placed under general endotracheal anesthesia. She was | | | positioned prone on the Harlan operative table on a Dino frame | | | with her head cradled on a foam cushion. All pressure points were | | | meticulously padded. The lumbar region was then prepped and draped | | | in the standard, sterile fashion. After pausing for correct | | | patient, procedure, site, and antibiotic administration, a solution | | | of 0.25% bupivacaine and 1:200,000 of epinephrine was injected into | | | the proposed incision site. The skin was then incised using a 10 | | | blade knife in a linear fashion spanning the L4 and L5 spinous | | | processes. Using monopolar cautery, the erector spinae musculature | | | was dissected laterally on the right side, exposing the L4 and L5 | | | laminae on this side. Intraoperative x-ray was used to confirm | | | localization. The Yara retractor was placed in the wound to | | | maintain our exposure. Satisfied with our exposure, the | | | operative microscope was maneuvered into the surgical field for | | | enhanced magnification and illumination. Using an Anspach drill | | | with a 3 mm matchstick fluted bit and Kerrison rongeurs, a right | | | L4-5 hemilaminectomy and medial facetectomy were performed. The | | | ligamentum flavum was incised and removed, exposing the thecal sac. | | | The pars interarticularis was identified and preserved. We | | | encountered a synovial cyst arising from the right L4-5 facet joint | | | as predicted by the preoperative MRI. Using a Emerson and curette, | | | this was carefully dissected free from the common dural tube and | | | resected. Using a Emerson, we identified the right L5 pedicle and | | | the associated right L5 nerve root. Using Kerrison rongeurs, the | | | right L4-5 and L5-S1 foramina were enlarged. The L4-5 lateral | | | recess was also decompressed. At the conclusion of the case, the | | | right L4 and L5 nerve roots were free both to visualization and | | | palpation. The wound was then copiously irrigated with | | | antibiotic-impregnated Tis-U-Zoë. Meticulous hemostasis was | | | obtained. A concentration of 80 mg/mL of Depo-Medrol diluted in 1 | | | mL of normal saline was placed on a Gelfoam pledget and laid over | | | the hemilaminectomy site. A mixture containing 2 mL of 50 mcg/mL | | | of Fentanyl and 3 mL of 100 mcg/mL of Clonidine was injected into | | | the subfascial space. The wound was then closed in layers with 0 | | | Polysorb sutures for the muscle, #1 Polysorb sutures for the | | | lumbodorsal fascia, 2-0 Polysorb sutures for the subcutaneous | | | tissue, and a running 4-0 Biosyn for the skin with Dermabond. A | | | sterile dressing was applied to the wound. There were no | | | complications during the surgery. The patient tolerated the | | | procedure well. She was awakened, extubated, and taken to the PACU | | | for further recovery. I was present for the entire procedure on | | | December 14, 2018, as described in the note for this encounter. | | + + + SURGICAL PATHOLOGY (12/14/2018 1:36 PM PDT) + + + + + + | Component | Value | Ref Range | Performed | Pathologist | | | | | At | Signature | + + + + + + | Clinical | 63-year-old female who | | [facility] | | | History | presented with low back | | DEPARTMENT | | | | pain with radiation into | | OF | | | | the right gluteal | | PATHOLOGY | | | | region and upper thigh. | | | | | | MRI demonstrated right | | | | | | L4-5 stenosis with | | | | | | synovial cyst. | | | | + + + + + + | Final | A. Lumbar spine, | | [facility] | Electronically | | Pathologic | extradural cyst, | | DEPARTMENT | signed by | | Diagnosis | excision: Connective | | [facility] | Percy L | | | tissue with degenerative | | PATHOLOGY | MD Deana on | | | and cellular reactive | | | 12/17/2018 at | | | changesCase seen | | | 11:49 PM | | | by:Rudy Leblanc MD, | | | | | | PhD | | | | | | | | | | | | | | | | | | NeuropathologistPatholog | | | | | | y, [facility] | | | | | | Science [facility] | | | | | | electronic signature | | | | | | indicates that I have | | | | | | personally reviewed all | | | | | | diagnostic slides, the | | | | | | gross and/or microscopic | | | | | | portion of this report | | | | | | and formulated the final | | | | | | diagnosis. | | | | + + + + + + | Gross | Received is one specimen | | [facility] | | | Description | in formalin labeled | | DEPARTMENT | | | | with the patient's name | | OF | | | | (initials VLF) and | | PATHOLOGY | | | | medical record number | | | | | | [id number]. Spine, Right | | | | | | L4-5 Extradural Cyst | | | | | | received labeled "spine, | | | | | | right L4-5 extradural | | | | | | cyst-1" is a vasquez-pink, | | | | | | smooth fragment of soft | | | | | | tissue measuring 1.0 x | | | | | | 0.6 x 0.4 cm. The | | | | | | specimen is bisected to | | | | | | reveal an inner cystic | | | | | | space lined by vasquez-pink, | | | | | | smooth bertrand. The | | | | | | specimen is entirely | | | | | | submitted in 1 cassette, | | | | | | labeled A1.(KLS) | | | | + + + + + + | Ancillary | Analyte specific | | [facility] | | | Information | reagents are used in | | DEPARTMENT | | | | many laboratory tests | | OF | | | | necessary for standard | | PATHOLOGY | | | | medical care. This test | | | | | | was developed and its | | | | | | performance | | | | | | characteristics | | | | | | determined by [facility] | | | | | | laboratories. It has | | | | | | not been cleared or | | | | | | approved by the US Food | | | | | | and Drug Administration | | | | | | (FDA). FDA does not | | | | | | require this test to go | | | | | | through premarket FDA | | | | | | review. This test is | | | | | | used for clinical | | | | | | purposes. It should not | | | | | | be regarded as | | | | | | investigational or for | | | | | | research. This | | | | | | laboratory is certified | | | | | | under the Clinical | | | | | | Laboratory Improvement | | | | | | Amendments (CLIA) as | | | | | | qualified to perform | | | | | | high complexity clinical | | | | | | laboratory testing. | | | | + + + + + + + + | Specimen | + + | Tissue - Spine | + + + + + + + | Performing | Address | City/State[facility] | Phone Number | | Organization | | | | + + + + + | [facility] | [address] | [place] [address] | | | PATHOLOGY | [address] | | | + + + + + CBC (HEMOGRAM) ONLY (12/14/2018 11:46 AM PDT) + + + + + + | Component | Value | Ref Range | Performed | Pathologist | | | | | At | Signature | + + + + + + | WHITE CELL | 10.46 | 3.50 - 10.80 | [facility] | | | COUNT | | K/cu mm | LABORATORY | | | | | | SERVICES, | | | | | | CORE | | + + + + + + | RED CELL | 4.07 | 4.00 - 5.20 | [facility] | | | COUNT | | M/cu mm | LABORATORY | | | | | | SERVICES, | | | | | | CORE | | + + + + + + | HEMOGLOBIN | 13.1 | 12.0 - 16.0 | [facility] | | | | | g/dL | LABORATORY | | | | | | SERVICES, | | | | | | CORE | | + + + + + + | HEMATOCRIT | 39.1 | 36.0 - 46.0 % | [facility] | | | | | | LABORATORY | | | | | | SERVICES, | | | | | | CORE | | + + + + + + | MCV | 96.1 | 80.0 - 100.0 fL | [facility] | | | | | | LABORATORY | | | | | | SERVICES, | | | | | | CORE | | + + + + + + | MCHC | 33.5 | 32.0 - 36.0 | [facility] | | | | | g/dL | LABORATORY | | | | | | SERVICES, | | | | | | CORE | | + + + + + + | RDW SD | 53.6 (H) | 35.1 - 46.3 fL | [facility] | | | | | | LABORATORY | | | | | | SERVICES, | | | | | | CORE | | + + + + + + | PLATELET | 407 (H) | 150 - 400 K/cu | [facility] | | | COUNT | | mm | LABORATORY | | | | | | SERVICES, | | | | | | CORE | | + + + + + + | MPV | 9.1 (L) | 9.7 - 12.3 fL | [facility] | | | | | | LABORATORY | | | | | | SERVICES, | | | | | | CORE | | + + + + + + | NRBC% | 0.0 | 0.0 - 0.3 % | [facility] | | | | | | LABORATORY | | | | | | SERVICES, | | | | | | CORE | | + + + + + + | NRBC# | 0.00 | 0.00 - 0.02 | [facility] | | | | | K/cu mm | LABORATORY | | | | | | SERVICES, | | | | | | CORE | | + + + + + + + + | Specimen | + + | Blood - Blood | | (substance) | + + + + + + + | Performing | Address | City/State/Zipcode | Phone Number | | Organization | | | | + + + + + | [facility] | [address] | [place] [address] | | | [place], ANJALI | [address] | | | + + + + + COAGULOPATHY PANEL (INR,APTT,FIBRINOGEN) (12/14/2018 11:43 AM PDT) + +-------+ + + + | Component | Value | Ref Range | Performed | Pathologist | | | | | At | Signature | + +-------+ + + + | INR | 1.02 | 0.90 - 1.20 INR | [facility] | | | | | | LABORATORY | | | | | | SERVICES, | | | | | | CORE | | + +-------+ + + + | APTT | 30.8 | 26.0 - 36.0 | [facility] | | | | | seconds | LABORATORY | | | | | | SERVICES, | | | | | | CORE | | + +-------+ + + + | FIBRINOGEN | 408 | 150 - 450 mg/dL | [facility] | | | LEVEL | | | LABORATORY | | | | | | SERVICES, | | | | | | CORE | | + +-------+ + + + + + | Specimen | + + | Blood - Blood | | (substance) | + + + + + | Narrative | Performed At | + + + | INR Therapeutic ranges for full anticoagulation: INR for | [facility] | | Venous Thromboembolism (2.0 - 3.0) INR INR for | LABORATORY | | most patients with mech. valves (2.5 - 3.5) INR APTT values for | SERVICES, CORE | | monitoring heparin therapy may be affected by specimens processed >1 | | | hour after collection. APTT Therapeutic Range: | | | (75 - 120) sec Heparin levels of 0.35 - 0.7 U/mL | | + + + + + + + + | Performing | Address | City/State/Zipcode | Phone Number | | Organization | | | | + + + + + | [facility] | [address] | [place] [address] | | | SERVICES, CORE | [address] | | | + + + + + ANTIBODY SCREEN (12/14/2018 11:09 AM PDT) + + + + + + | Component | Value | Ref Range | Performed | Pathologist | | | | | At | Signature | + + + + + + | Antibody | Negative | | [facility] | | | Screen | | | LABORATORY | | | | | | SERVICES, | | | | | | TRANSFUSION | | | | | | MEDICINE | | + + + + + + + + | Specimen | + + | Blood - Blood | | (substance) | + + + + + + + | Performing | Address | City/State/Zipcode | Phone Number | | Organization | | | | + + + + + | [facility] | [address] | [place] [address] | | | SERVICES, | [address] | | | | TRANSFUSION MEDICINE | | | | + + + + + ABO & RH TYPE (12/14/2018 11:09 AM PDT) + + + + + + | Component | Value | Ref Range | Performed | Pathologist | | | | | At | Signature | + + + + + + | ABO Group | A | | [facility] | | | | | | LABORATORY | | | | | | SERVICES, | | | | | | TRANSFUSION | | | | | | MEDICINE | | + + + + + + | Rh Type | Positive | | [facility] | | | | | | LABORATORY | | | | | | SERVICES, | | | | | | TRANSFUSION | | | | | | MEDICINE | | + + + + + + + + | Specimen | + + | Blood - Blood | | (substance) | + + + + + + + | Performing | Address | City/State/Zipcode | Phone Number | | Organization | | | | + + + + + | [facility] | [address] | [place] [address] | | | SERVICES, | [address] | | | | TRANSFUSION MEDICINE | | | | + + + + + CAPILLARY BLOOD GLUCOSE (NO CHG), POC (12/14/2018 10:50 AM PDT) + +-------+ + + + | Component | Value | Ref Range | Performed | Pathologist | | | | | At | Signature | + +-------+ + + + | BLOOD | 88 | 60 - 99 mg/dL | [facility] - | | | GLUCOSE, | | | [facility] | | | POC | | | [address] | | | | | | OF CARE | | | | | | TESTS | | + +-------+ + + + + + | Specimen | + + | | + + + + + + + | Performing | Address | City/State/Zipcode | Phone Number | | Organization | | | | + + + + + | [facility] | [address] | [place], [place] | | | [place] [place] | [address] | [address] | | | TESTS | | | | + + + + + INTRAPROCEDURE IMAGING (12/14/2018 10:12 AM PDT) + + | Specimen | + + | | + + + + + | Narrative | Performed At | + + + | See admission or procedure notes for details of any intraprocedure | [facility] | | images obtained. | RADIOLOGY | + + + + +---------+ + + | Performing | Address | City/State/Zipcode | Phone Number | | Organization | | | | + +---------+ + + | [facility] | | | | + +---------+ + + documented in this encounter Visit Diagnoses + + | Diagnosis | + + | Claudication, intermittent (HCC) - Primary Peripheral vascular disease, unspecified | + + documented in this encounter Administered Medications + +--------+---------+------+------+------+ | Medication Order | MAR | Action | Dose | Rate | Site | | | Action | Date | | | | + +--------+---------+------+------+------+ + +---+ | acetaminophen (TYLENOL) tablet | | | 1,000 mg 1,000 mg, oral, | | | PREPROCEDURE ONCE, 1 dose, | | | Starting 12/14/18 at 1012, | | | Until 12/14/18 at 2301 | | + +---+ | | | + +---+ + +-------+ +------+---+---+ | ePHEDrine injection 10 [...] PDT | | | | +-------+ +------+---+---+ + +---+ | | | + +---+ | fentaNYL (SUBLIMAZE) injection | | | 25-50 mcg 25-50 mcg, | | | intravenous, POSTPROCEDURE PRN, 8 | | | doses, Starting Thu12/14/18 at | | | 1249, Until Thu12/14/18 at 2301, | | | severe pain while in Phase I | | | Recovery | | + +---+ | | | + +---+ + +-------+ +--------+---+---+ | gabapentin (NEURONTIN) capsule | Given | 12/15/19 | 600 mg | | | | 600 mg 600 mg, oral, | | 19 11:11 | | | | | PREPROCEDURE ONCE, 1 dose, | | AM PDT | | | | | Starting Thu12/14/18 at 1012, | | | | | | | Until Thu12/14/18 at 1111 | | | | | | + +-------+ +--------+---+---+ + +---+ | | | + +---+ | hydrALAZINE (APRESOLINE) | | | injection 10 mg 10 mg, | | | intravenous, EVERY 15 MINUTES | | | NEEDED, 4 doses, Starting Tue | | | 12/14/18 at 1251, Until Tue | | | 12/14/18 at 2301, hypertension, | | | first line | | + +---+ | | | + +---+ | HYDROmorphone (DILAUDID) | | | injection 0.2-0.5 mg 0.2-0.5 mg, | | | intravenous, POSTPROCEDURE PRN, | | | Starting 12/14/18 at 1249, | | | Until 12/14/18 at 2301, | | | moderate pain while in Phase I | | | Recovery | | + +---+ | | | + +---+ + +-------+ +------+---+---+ | ipratropium-albuterol (CATRACHOO-NEB) | Given | 12/15/19 | 3 mL | | | | nebulizer solution 3 mL 3 mL, | | 19 11:47 | | | | | inhalation, ONCE, 1 dose, Tue | | AM PDT | | | | | 12/14/18 at 1130 | | | | | | + +-------+ +------+---+---+ + +---+ | | | + +---+ | lidocaine (XYLOCAINE) 10 mg/mL | | | (1 %) injection subcutaneous, | | | PREPROCEDURE PRN, Starting Tue | | | 12/14/18 at 1012, Until Tue | | | 12/14/18 at 2301, IV start | | + +---+ | | | + +---+ | naloxone (NARCAN) injection | | | intravenous, POSTPROCEDURE PRN, | | | Starting 12/14/18 at 1249, | | | Until 12/14/18 at 2301, | | | hypopnea | | + +---+ | | | + +---+ | ondansetron (ZOFRAN) injection | | | 4 mg 4 mg, intravenous, | | | POSTPROCEDURE PRN, 1 dose, | | | Starting 12/14/18 at 1249, | | | Until 12/14/18 at 2301, | | | nausea/vomiting, 1st line | | + +---+ | | | + +---+ | promethazine (PHENERGAN) | | | injection 6.25-12.5 mg 6.25-12.5 | | | mg, intravenous, POSTPROCEDURE | | | PRN, 1 dose, Starting 12/14/18 | | | at 1249, Until 12/14/18 at | | | 2301, nausea/vomiting, 2nd line | | + +---+ | | | + +---+ + + + +---+---+---+ | sodium chloride [...] + +---+---+---+ +---+---+ | | | +---+---+ documented in this encounter
--- OUTSIDE RECORDS SUMMARY | ~2019-07-18 | XMS ---
Demographics + + + | Address | [address] | | | [address] | | | [place] [address] | + + + | Preferred Language | Unknown | + + + | Marital Status | Unknown | + + + | Nondenominational Affiliation | Unknown | + + + | Race | Unknown | + + + | Ethnic Group | Unknown | + + + Author + + + | Author | [facility] | + + + | Organization | [facility] | + + + | Address | [address] | | | [place] [address] | + + + | Phone | | + + + Care Team Providers + + + + | Care Cheese Maker Name | Role | Phone | + + + + Unavailable | Unavailable | + + + + PROBLEMS +---------+ + + +--------+ + + | Type | Condition | ICD9-CM | [id number] | Onset | Condition | SNOMED | | | | Code | Code | Dates | Status | Code | +---------+ + + +--------+ + + | Problem | Hyperlipid | 272.4 | | | Active | 10758990 | | | emia NOS | | | | | | +---------+ + + +--------+ + + | Problem | Tobacco | 305.1 | | | Active | 265769074 | | | use | | | | | | +---------+ + + +--------+ + + | Problem | Transient | 435.9 | | | Active | 202265541 | | | ischemic | | | | | | | | attack | | | | | | +---------+ + + +--------+ + + | Problem | Hyperlipid | | E78.5 | | Active | 37004841 | | | emia | | | | | | +---------+ + + +--------+ + + | 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 | | | | | | | | cardiovasc | | | | | | | | ular | | | | | | | | disease | | | | | | +---------+ + + +--------+ + + | Problem | HX | V12.54 | | | Active | 756869034 | | | TIA/STROKE | | | | | | | | W/O RESID | | | | | | +---------+ + + +--------+ + + | Problem | OA | 715.90 | | | Active | 460304586 | | | (osteoarth | | | | | | | | ritis) | | | | | | +---------+ + + +--------+ + + | Problem | Essential | | I10 | | Active | 46424115 | | | (primary) | | | | | | | | hypertensi | | | | | | | | on | | | | | | +---------+ + + +--------+ + + | Problem | Asthma w/ | 493.22 | | | Active | 626574098 | | | COPD w/ | | | | | | | | acute | | | | | | | | exacerbati | | | | | | | | on | | | | | | +---------+ + + +--------+ + + | Problem | Hypertensi | 401.9 | | | Active | 69374836 | | | on | | | | | | +---------+ + + +--------+ + + | Problem | Joint | 719.41 | | | Active | 733840620 | | | pain, | | | | | | | | shoulder | | | | | | +---------+ + + +--------+ + + | Problem | POSTSURGIC | V45.89 | | | Active | 92376732 | | | [place] | | | | | | | | NEC | | | | | | +---------+ + + +--------+ + + | Problem | ASTHMA NOS | 493.90 | | | Active | 100464708 | +---------+ + + +--------+ + + | Problem | Low Back | 724.5 | | | Active | 689939951 | | | Pain NOS | | | | | | +---------+ + + +--------+ + + | Problem | Acute | 466.0 | | | Active | 19833815 | | | bronchitis | | | | | | | | NOS | | | | | | +---------+ + + +--------+ + + | Problem | ROTATOR | 727.61 | | | Active | 7011970 | | | CUFF | | | | | | | | RUPTURE | | | | | | +---------+ + + +--------+ + + | Problem | Abnormal | 794.8 | | | Active | 56375013 | | | liver | | | | | | | | function | | | | | | | | study | | | | | | +---------+ + + +--------+ + + ALLERGIES + + + + +--------+ | Substance | Reaction | Event Type | Date | Status | + + + + +--------+ | Tetracycline | Unknown | Drug Allergy | December, | Active | | HCl | | | | | + + + + +--------+ | vioxx | Unknown | Non Drug | December, | Active | | | | Allergy | | | + + + + +--------+ SOCIAL HISTORY No smoking Hx information available PLAN OF CARE + +---------+ | Activity | Details | + +---------+ +---+ | | +---+ + + + | Follow Up | 4 Months Reason:null | + + + VITAL SIGNS + + + + | Height | 60 in | 2017-01-14 | + + + + | Weight | 148.2 lbs | 2017-01-14 | + + + + | BMI | 28.94 kg/m2 | 2017-01-14 | + + + + | Heart Rate | 71 /min | 2017-01-14 | + + + + | Blood pressure systolic | 184 mm Hg | 2017-01-14 | + + + + | Blood pressure diastolic | 86 mm Hg | 2017-01-14 | + + + + MEDICATIONS + + + + + + + +--------+ | Medicati | Instruct | Dosage | Frequenc | Start | End Date | Duration | Status | | on | ions | | y | Date | | | | + + + + + + + +--------+ | Prilosec | | | | | | | Active | + + + + + + + +--------+ | Albutero | Inhalati | 2 puffs | | 29 May, | | 30 | Active | | l 90 | on every | | | 2012 | | | | | MCG/ACT | 4 hrs | | | | | | | | | prn | | | | | | | + + + + + + + +--------+ | Albutero | Inhalati | 3 ml as | 4h | 24 Mar, | | | Active | | l | on every | needed | | 2013 | | | | | Sulfate | 4 hrs | | | | | | | | (2.5 | | | | | | | | | MG/3ML) | | | | | | | | | 0.083% | | | | | | | | + + + + + + + +--------+ | Atenolol | | TAKE ONE | | | | 30 | Active | | 25 MG | | TABLET | | | | | | | | | BY MOUTH | | | | | | | | | TWICE A | | | | | | | | | DAY | | | | | | + + + + + + + +--------+ | Meloxica | Orally | 1 | 24h | | | | Active | | m 5 MG | Once a | capsule | | | | | | | | day | | | | | | | + + + + + + + +--------+ | Levothyr | | TAKE ONE | | | | 30 | Active | | oxine | | TABLET | | | | | | | Sodium | | BY MOUTH | | | | | | | 25 MCG | | EVERY | | | | | | | | | MORNING | | | | | | | | | ON AN | | | | | | | | | EMPTY | | | | | | | | | STOMACH | | | | | | + + + + + + + +--------+ | Simvasta | po q pm | TAKE ONE | | | | 90 | Active | | tin 40 | | TABLET | | | | | | | MG | | BY MOUTH | | | | | | | | | EVERY | | | | | | | | | DAY IN | | | | | | | | | THE | | | | | | | | | EVENING | | | | | | + + + + + + + +--------+ | Ventolin | | INHALE 2 | | | | 30 | Active | | HFA 108 | | PUFFS | | | | | | | (90 | | BY MOUTH | | | | | | | Base) | | EVERY 4 | | | | | | | MCG/ACT | | HOURS | | | | | | | | | | | | | | | | | | NEEDED | | | | | | + + + + + + + +--------+ RESULTS No Results PROCEDURES + + + + + | Procedure | Date Ordered | Related Diagnosis | Body Site | + + + + + | Office Visit, Est | January 14, 2017 | | | | Pt., Level 3 | | | | + + + + + IMMUNIZATIONS No Known Immunizations"
--- OUTSIDE RECORDS SUMMARY | ~2019-07-18 | XMS | Encounter Summary ---
Demographics + + + | Address | [address] | | | [place] [address] | + + + | Home Phone | | + + + | Preferred Language | Unknown | + + + | Marital Status | | + + + | Episcopalian Affiliation | Unknown | + + + | Race | Unknown | + + + | Ethnic Group | Unknown | + + + Author + + + | Author | [facility] | | | and [place] | + + + | Organization | [facility] | | | [...] Team Providers + +------+ + | Care Water Meter Mechanic Name | Role | Phone | + +------+ + | Litzy Castillo MD | PCP | | + +------+ + Encounter Details +--------+ + + + + | Date | Type | Department | Care Team | Description | +--------+ + + + + | 08/28/ | Hospital | [facility] [place] [facility] | Conversion | Pain | | 2019 | Encounter | [address] | Transaction, | | | | [address] | Provider Unknown | | | | | [place], [place] | [phone] | | | | | [address] | | | | | | [phone] | | | +--------+ + + + [...] [place] | | | | | | [place] [address] | | | | | | [phone] | | | | | | | [...] for this | | | e | 5:03 AM | | procedure are in the | | | | PDT | | results section. | + +--------+ + + + documented in this encounter Results CT Head wo Contrast (02/25/2013 5:03 AM PDT) + + | Specimen | [...]
--- OUTSIDE RECORDS SUMMARY | ~2019-07-18 | XMS | Encounter Summary ---
Demographics + + + | Address | [address] | | | [place] [address] | + + + | Home Phone | | + + + | Preferred Language | Unknown | + + + | Marital Status | Single | + + + | Voodoo Affiliation | NON | + + + [...] Team Providers + +------+ + | Care Elocution Teacher Name | Role | Phone | + +------+ + | Litzy Catsillo MD | PCP | | + +------+ [...] | | | | | Procedures | [place], [place] | | | | | | MRI SPINE | [address] | | | | | | LUMBAR WO | Phone: | | | | | | CONTRAST | [phone] | | | | | | | Fax: | | | | | | | [phone] | | + +--------+ + + + [...] | | | | | Procedures | [place], [place] | | | | | | CONSULT TO | [address] | | | | | | PAIN | Phone: | | | | | | MANAGEMENT | [phone] | | | | | | | Fax: | | | | | | | [phone] | | + +--------+ + + + [...] (new symptoms) | | 2018 | | [facility] [address] | [address] | | | | | [place] Mailcode: | [place], | | | | | [facility] | [place] [address] | | | | | and Healing, | [phone] | | | | | [facility] [address] | | | | | | [place], [place] | | | | | | [address] | | | | | | [phone] | | | +--------+ + + + [...] | | | | | [place], | | | | | | [place] [address] | | | | | | [phone] | | | | | | | [...]
--- OUTSIDE RECORDS SUMMARY | ~2019-07-18 | XMS | Encounter Summary ---
Demographics + + + | Address | [address] | | | [place] [address] | + + + | Home Phone | | + + + | Preferred Language | Unknown | + + + | Marital Status | | + + + | Voodoo Affiliation | Unknown | + + + [...] Team Providers + +------+ + | Care Heel Builder Name | Role | Phone | + +------+ + PCP | Unavailable | + +------+ + Reason for Visit +--------+ + | Reason | Comments | +--------+ + | Other | Referral | +--------+ + Encounter Details +--------+ + + + + | Date | Type | Department | Care Team | Description | +--------+ + + + + | 05/20/ | Telephone | [facility] | Melany Paez, | Other (Referral) | | 2011 | | SURGERY [address] | RN | | | | | [place], [place] | | | | | | [address] | | | | | | [phone] | | | +--------+ + + + [...] | | | | | [place] [address] | | | | | | [phone] | | | | | | | | +--------+---------+ + + + documented as of this encounter Visit Diagnoses Not on filedocumented in this encounter"
--- OUTSIDE RECORDS SUMMARY | ~2019-07-18 | XMS | Encounter Summary ---
Demographics + + + | Address | [address] | | | [place] [address] | + + + | Home Phone [...] Team Providers + +------+ + | Care Stone Gluer Name | Role | Phone | + +------+ + | Litzy Castillo MD | PCP | | + +------+ + Encounter Details +--------+ + + + + | Date | Type | Department | Care Team | Description | +--------+ + + + + | 03/15/ | Abstract | [facility] [place] | [place], | | | 2017 | | PHYSIATRY [address] | [address] | | | | | [place], | [place], | | | | | [place] [address] | [place] [address] | | | | | [phone] | [phone] | | | | | | | [...] [place] | | | | | | [place] [address] | | | | | | [phone] | | | | | | | | +--------+---------+ + + + documented as of this encounter Visit Diagnoses Not on filedocumented in this encounter"
--- OUTSIDE RECORDS SUMMARY | ~2019-07-18 | XMS | Clinical Summary ---
Demographics + + + | Address | [address] | | | [place] [address] | + + + | Home Phone | | + + + | Preferred Language | Unknown | + + + | Marital Status | Single | + + + | Confucianism Affiliation | Unknown | + + + | Race | Unknown | + + + | Ethnic Group | Unknown | + + + Author + + + | Author | [facility] [employer] (Historical as of | | | 04-09-19) | + + + | Organization | [facility] [employer] (Historical as of | | | 04-09-19) [...] Team Providers + +------+ + | Care Control Integration Engineer Name | Role | Phone | + [...] +------+-------+ + | MEDICARE | MEDICA | [id number] | | | [address] | | | RE | | | | [place] [address] | | | IP-OP | | | | | + +--------+ +------+-------+ + | - WPS - | TRICAR | [id number] | | | [address] [address] | | | [place] | | | | [place] | | | LIFE | | | | [address] | + +--------+ +------+-------+ + | MEDICAID | MEDICA | [id number] | | | [address] | | | [place] | | | | [place], [place] | | | [place] | | | | [address] | + +--------+ +------+-------+ + + +--------+ [...] | | | [address] | | | [address] | [place] [address] | + +--------+ +--------+ + +"
--- OUTSIDE RECORDS SUMMARY | ~2019-07-18 | XMS | Encounter Summary ---
Demographics + + + | Address | [address] | | | [place] [address] | + + + | Home Phone | | + + + | Preferred Language | Unknown | + + + | Marital Status | | + + + | Orthodox Affiliation | Unknown | + + + | Race | Unknown | + + + | Ethnic Group | Unknown | + + + Author + + + | Author | [facility] | | | and [place] | + + + | Organization | [facility] | | | [...] Team Providers + +------+ + | Care Chemical Plant Worker Name | Role | Phone | + +------+ + PCP | Unavailable | + +------+ + Encounter Details +--------+ + + + + | Date | Type | Department | Care Team | Description | +--------+ + + + + | 12/11/ | Hospital | [place] [facility] | Kaveh Izaguirre MD | | | 2012 | Encounter | HOSPITAL XRAY [address] | [address] | | | | | [address] | [address] [facility], | | | | | [place], [place] | [place] [address] | | | | | [address] | [phone] | | | | | [phone] | | | +--------+ + + + [...] [place] | | | | | | [place] [address] | | | | | | [phone] | | | | | | | | +--------+---------+ + + + documented as of this encounter Visit Diagnoses Not on filedocumented in this encounter"
--- OUTSIDE RECORDS SUMMARY | ~2019-07-18 | XMS | Encounter Summary ---
Demographics + + + | Address | [address] | | | [place] [address] | + + + | Home Phone | | + + + | Preferred Language | Unknown | + + + | Marital Status | | + + + | Scientologist Affiliation | Unknown | + + + | Race | Unknown | + + + | Ethnic Group | Unknown | + + + Author + + + | Author | [facility] | | | and [place] | + + + | Organization | [facility] | | | and [...] Team Providers + +------+ + | Care Data Entry Processor Name | Role | Phone | + [...] + + | 03/26/ | Telephone | [facility] [place] | [place], | Medication Reaction | | 2017 | | [address]YSI[address]RY [address] | [address] | | | | | [place], | [place] [facility], | | | | | [place] [address] | [place] [address] | | | | | [phone] | [phone] | | | | | | | [...] | | | | | [place] [address] | | | | | | [phone] | | | | | | | | +--------+---------+ + + + documented as of this encounter Visit Diagnoses Not on filedocumented in this encounter"
--- OUTSIDE RECORDS SUMMARY | ~2019-07-18 | XMS | Encounter Summary ---
Demographics + + + | Address | [address] | | | [place] [address] | + + + | Home Phone | | + + + | Preferred Language | Unknown | + + + | Marital Status | Single | + + + | Restoration Affiliation | NON | + + + | Race | White | + + + | Ethnic Group | Not or | + + + Author + + + | Author | [facility] | + + + | Organization | [facility] | + + + | Address [...] Team Providers + +------+ + | Care Executive Legal Secretary Name | Role | Phone | + +------+ + | Litzy Castillo MD | PCP | | + +------+ + Reason for Referral Consultation (Routine) + +--------+ + + + + | Status | Reason | Specialty | Diagnoses / | Referred By | Referred To | | | | | Procedures | Contact | Contact | + +--------+ + + + + | New Request | | | Diagnoses | | | | | | | Blurred | Iván, | | | | | | vision, | MD Marichuy | | | | | | right eye | [address] | | | | | | Procedures | [address] | | | | | | CONSULT TO | [place] | | | | | | ADULT | [place] | | | | | | OPHTHALMOLOG | [address] | | | | | | Y | Phone: | | | | | | | [phone] | | | | | | | Fax: | | | | | | | [phone] | | + +--------+ + + + + Diagnostic Testing (Urgent) + +--------+ + + + + | Status | Reason | Specialty | Diagnoses / | Referred By | Referred To | | | | | Procedures | Contact | Contact | + +--------+ + + + + | Authorized | | Radiology | Diagnoses | | | | | | | S/P carotid | Iván, | | | | | | | MD Marichuy | | | | | | endarterecto | [address] | | | | | | my Internal | [address] | | | | | | carotid | [place] [address] | | | | | | artery | [facility] [place] | | | | | | stenosis, | [address] | | | | | | right | Phone: | | | | | | Procedures | [phone] | | | | | | CTA HEAD AND | Fax: | | | | | | NECK W | [phone] | | | | | | CONTRAST | | | + +--------+ + + + + Reason for Visit Consultation (Routine) + +--------+ + + + + | Status | Reason | Specialty | Diagnoses / | Referred By | Referred To | | | | | Procedures | Contact | Contact | + +--------+ + + + + | Pending | | Neurology | Diagnoses | Dean, | Karina Stroke | | Review | | | TIA | Rosa Isela Whyte, | [facility] [address] | | | | | (transient | [place] [address] | [address] | | | | | ischemic | [address] | [place] | | | | | attack) S/P | [place], [place] | Mailcode: | | | | | carotid | [address] | [address] | | | | | endarterecto | Phone: | [place] | | | | | my | [phone] | Research | | | | | Cerebrovascu | Fax: | [address] | | | | | lar accident | [phone] | floor | | | | | (CVA), | | [place], [place] | | | | | unspecified | | [address] | | | | | mechanism | | Phone: | | | | | ([facility]) | | [phone] | | | | | Procedures | | Fax: | | | | | CONSULT TO | | [phone] | | | | | NEUROLOGY | | | + +--------+ + + + + Encounter Details +--------+ + + + + | Date | Type | Department | Care Team | Description | +--------+ + + + + | 07/19/ | Video/TeleH | Neurology | Iván, | S/P carotid | | 2018 | ealth-Sched | Telemedicine [address] | MD Marichuy [address] | endarterectomy | | | uled | [facility] | [address] | (Primary Dx); | | | | Rd [place], [place] | [place], [place] | Internal carotid | | | | [address] | [address] | artery stenosis, | | | | [phone] | [phone] | right; Blurred | | | | | | vision, right eye | +--------+ + + + + Social [...] documented as of this encounter Progress Notes Marichuy Minor MD - 07/19/2018 2:00 PM PSTFormatting of this note might be differen t from the original. NEUROLOGY TELESTROKE CLINIC INITIAL CONSULT NOTE ([facility]) Author: MARICHUY MINOR MD Reason for Consultation: Pre-operative evaluation, right eye vision changes HPI: Darcy Sun is a 63 y.o. RH female with h/o tobacco use d/o, HTN, HLD, L carotid occl usion and R CEA who was seen by stroke team (myself) in 2010 for recurrent TIA after finding intracranial right ICA stenosis on a limb CTA. Patient was on ASA/Plavix since then and has not had any recurrent events. She notes severe LBP with right leg pain which was evaluated by [facility] spine service. Patient states that she was told she needs Lower spine surgery to rel ieve the stenosis, but needed clearance from neurology first. Patient states she was doing fine from a stroke standpoint with no further TIA, but then 3 months ago while lounging at home, she had sudden onset, Painless "blurred and fuzzy" vision isolated only to the right eye. Denies any other symptoms. No loss of vision. Describes as if looking with right eye under water. No diplopia. No left eye vision problems. Has not see n molding sander or rn pacu for this. It is also unchanged. PMH: No date: Anticoagulated No date: Asthma No date: Blurred vision, right eye No date: Carotid occlusion, left No date: Carotid stenosis, right 05/28/2011: Claudication, intermittent ([facility]) 02/25/2013: CVA (cerebral vascular accident) ([facility]) No date: Double vision Comment: right eye No date: Emphysema lung ([facility]) No date: ETOH abuse No date: HTN (hypertension) No date: Hyperlipidemia No date: ICAO (internal carotid artery occlusion), left No date: Intracranial carotid stenosis No date: Lumbago No date: PAD (peripheral artery disease) ([facility]) No date: Personal history of tobacco use No date: Smoking No date: TIA (transient ischemic attack) Comment: x 5 H/o cholecystectomy 3 years ago for acute cholecystitis Home Meds: Albuterol 90 mcg/Actuation Inhalation Aerosol, Inhale 1-2 Puffs every four hours as needed. aspirin 325 mg Oral Tablet, Take 1 Tab by mouth once daily. atenolol 100 mg oral tablet, Take 100 mg by mouth once daily. clopidogrel (PLAVIX) 75 mg Oral Tablet, Take 1 Tab by mouth once daily. gabapentin 300 mg oral capsule, 300 mg three times daily. ipratropium (ATROVENT HFA) 17 mcg/Actuation Inhalation HFA Aerosol Inhaler, Inhale 2 Puffs two times daily. levothyroxine 50 mcg oral tablet, Take 50 mcg by mouth before breakfast. simvastatin 40 mg oral tablet, Take 40 mg by mouth once daily in the evening. valsartan 80 mg oral tablet, 80 mg once daily. Allergies: Allergies Allergen Reactions Pletal [Cilostazol] Extreme sleepiness, caused pt to sleep for 20 hours straight. Tetracycline (Bulk) Unknown Tramadol Unknown Vioxx [Rofecoxib] Unknown Social History: Social History Social History Marital status: Single Spouse name: N/A Number of children: N/A Years of education: N/A Occupational History Not on file. Social History Main Topics Smoking status: Current Every Day Smoker Packs/day: 1.00 Years: 55.00 Types: Cigarettes Smokeless tobacco: Never Used Alcohol use 21.0 oz/week 35 Standard drinks or equivalent per week Comment: 5 beers per day Drug use: No Sexual activity: Not on file Other Topics Concern Not on file Social History Narrative No narrative on file Family History: no stroke history Review of Systems: A complete review of systems was performed and is negative except as per HPI. PE: BP 172/74, states due to 9/10 back and right LE pain Constitutional: WD/WN, NAD Neurological: MS: AOx4, no aphasia, no neglect, no dysarthria Cranial Nerves: Pupils appear symmetric 3mm, EOMI, VFF, Face symmetric Motor: No drift except for pain limiting RLE movement Sensation: Light touch: Intact and symmetric in the bilateral upper and lower extremities. Proprioception: Intact and symmetric in the bilateral upper and lower extremities. Coordination: No ataxia out of proportion to weakness Gait: Deferred Category Description Score 1a. Level of Consciousness 0=Alert 1=Drowsy 2=Stuperous 3=Coma 0 1b. LOC Questions (month, age) 0=Both correct 1=One correct 2=Incorrect 0 1c. LOC Commands (Open/close eyes, make fist, let go) 0=Obeys both correctly 1=Obeys one correctly 2=Incorrect 0 2. Best Gaze (Eyes open, patient follows examiner's finger or face) 0=Normal 1=Partial gaze palsy 2=Forced gaze deviation 0 3. Visual Puente (Introduce visual stimulus/threat into pt's visual field quadrants) 0=No visual loss 1=Partial hemianopia 2=Complete hemianopia 3=Bilateral hemianopia (blind) 0 4. Facial Paresis (Show teeth, raise eyebrows and squeeze eyes shut) 0=Normal 1=Minor 2=Partial 3=Complete 0 5a. Motor Left Arm (Elevate arm to 90 deg if sitting, 45 if supine, hold for 10 seconds) 0= No drift 1=Drift 2=Can't resist gravity 3=No effort against gravity 4=No movement X= Untestable (joint fused or amputaion) 0 5b. Motor Right Arm As in 5a 0 6a. Motor Left Leg (Elevate to 30 deg with pt supine, hold for 5 seconds) As in 5a 0 6b. Motor Right Leg As in 5a 0 7. Limb Ataxia (finger, nose, ataxia out of proportion to weakness) 0=No ataxia 1=Ataxia in one limb 2=Ataxia in two limbs 0 8. Sensory (pin prick to face, arm, trunk, leg. Compare side to side) 0=Normal 1=Partial loss 2=Severe loss 0 9. Best Language (name an item, describe a picture, read a sentence) 0=No aphasia 1=Mild to moderate aphasia 2=Severe aphasia 3=Mute 0 10. Dysarthria (Evaluate speech clarity by patient repeating listed words) 0=Normal articul ation 1=Mild to moderate slurring 2=Near to unintelligible or worse X=Intubated or other physical barrier 0 11. Extinction and Inattention (Use information from prior testing to identify neglect or d ouble simultaneous stimuli testing) 0=No neglect 1=Partial neglect 2=Complete neglect 0 TOTAL SCORE: 0 Modified River Scale Score (mRS): 1 LABORATORY: N/A IMAGING: Carotid duplex from 2011 showed left ICA occlusion with no significant stenosis in Right ICA CTA Upper Ext: showed possible stenosis in the meghann Right ICA. Appears calcified which co uld create a shadow. 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 Right ICA cervical origin widely patenet. Left ICA occluded at its origin. Diagnosis: Blurred Vision in Right eye H/o TIA Intracranial Right ICA stenosis H/o symptomatic cervical Right ICA stenosis s/p CEA Left Internal Carotid artery occlusion Assessment: Darcy Sun is a 63 y.o. female referred to the Stroke service for evaluation of right eye vision changes that is described as blurred and not vision loss or diplopia. Gi dakota in isolation in the right eye, I suspect that this is due to local eye phenomenon, and i s not consistent with stroke or amaurosis. She may have intracranial right ICA stenosis give n CTA findings previously, but this is managed medically regardless. She does not require du al antiplatelet therapy at this time, as jail use has not been shown to be beneficial i n terms of stroke risk reduction, and does increase risk for hemorrhage. Given her left ICA occlusion and possible right ICA stenosis (Intracranial), she is at risk for developing stro ke in setting of anesthesia. I would continue a baby ASA during surgical period and hold alden vix. Also would recommend to avoid hypotension during induction of anesthesia. This should m inimize her stroke risk during perioperative period. Patient states she understands stroke r isk and given that her quality of life is terrible with her back pain, she would like to pro ceed with surgery. Plan: -D/c Plavix -ASA 81mg daily. Would continue this through surgery if possible -CTA Head and neck to do surveillance of right ICA stenosis, Will order at [facility] -Ophthalmology consultation, will refer to [facility] as it is local for rona [place]Alisa -Encouraged continued smoking Cessation -Goal LDL <70 -f/u via telemed after CTA I spent 60 minutes with this patient. More than 50% of time was spent in counseling the pat ient and reviewing images with the patient including: Stroke education provided to patient including stroke warning signs, need to dial 911, risk factor reduction, stroke medications and F/U reviewed. Marichuy Minor M.D. [employer] [facility] documented in th is encounter Plan of Treatment +--------+ + + + + | Date | Type | Specialty | Care Team | Description | +--------+ + + + + | 06/17/ | Hospital | Adult Acute Care | Jarrod Barrett MD | | | 2019 | Encounter | | [address] | | | | | | [place], | | | | | | [place] [address] | | | | | | [phone] | | | | | | | | +--------+ + + + + | 06/18/ | Procedure | Surgery | | | 2019 | Pass | | | | +--------+ + + + + + +---------+--------+ + + | Name | Type | Priori | Associated Diagnoses | Order Schedule | | | | ty | | | + +---------+--------+ + + | CTA HEAD AND NECK W | Imaging | Urgent | S/P carotid | Expected: | | CONTRAST | | | endarterectomy | 07/19/2018, Expires: | | | | | Internal carotid | 08/18/2019 | | | | | artery stenosis, | | | | | | right | | + +---------+--------+ + + documented as of this encounter Visit Diagnoses + + | Diagnosis | + + | S/P carotid endarterectomy - Primary Other postprocedural status | + + | Internal carotid artery stenosis, right | + + | Blurred vision, right eye Other specified visual disturbances | + + documented in this encounter
--- OUTSIDE RECORDS SUMMARY | ~2019-07-18 | XMS | Encounter Summary ---
Demographics + + + | Address | [address] | | | [place] [address] | + + + | Home Phone | | + + + | Preferred Language | Unknown | + + + | Marital Status | | + + + | Mormonism Affiliation | Unknown | + + + [...] Team Providers + +------+ + | Care Handy Man Name | Role | Phone | + +------+ + | Litzy Castillo MD | PCP | | + +------+ + Encounter Details +--------+ + + + + | Date | Type | Department | Care Team | Description | +--------+ + + + + | 08/27/ | Hospital | [facility] | Conversion | Diagnosis unknown | | 2019 | Encounter | [address] | Transaction, | | | | [address] | Provider Unknown | | | | | [place], [place] | [phone] | | | | | [address] | | | | | | [phone] | | | +--------+ + + + [...] M[address] | | | | | | [place] [address] | | | | | | [phone] | | | | | | | [...]
--- OUTSIDE RECORDS SUMMARY | ~2019-07-18 | XMS | Encounter Summary ---
Demographics + + + | Address | [address] | | | [place] [address] | + + + | Home Phone | | + + + | Preferred Language | Unknown | + + + | Marital Status | Single | + + + | Orthodoxy Affiliation | NON | + + + | Race | White | + + + | Ethnic Group | Not or | + + + Author + + + | Author | [facility] | + + + | Organization | [facility] | + + + | Address [...] Team Providers + +------+ + | Care Title I Teacher Name | Role | Phone | + +------+ + | Heide Bhatti | PCP | | + +------+ + Reason for Visit +--------+ + | Reason | Comments | +--------+ + | Other | | +--------+ + Encounter Details +--------+ + + + + | Date | Type | Department | Care Team | Description | +--------+ + + + + | 09/17/ | Telephone | [place] [facility] | Iván, | | | 2011 | | [facility] [place] | MD Marichuy | | | | | [facility] | | | | | | [address] | | | | | | [place] Mailcode: | | | | | | [address] [place] | | | | | | [facility] | | | | | | floor [place], [place] | | | | | | [address] | | | | | | [phone] | | | +--------+ + + + [...] | | | | | [place], | | | | | | [place] [address] | | | | | | [phone] | | | | | | | | +--------+ + + + + | 06/18/ | Procedure | Surgery | | | | 2020 | Pass | | | | +--------+ + + + + documented as of this encounter Visit Diagnoses Not on filedocumented in this encounter"
--- OUTSIDE RECORDS SUMMARY | ~2019-07-18 | XMS | Encounter Summary ---
Demographics + + + | Address | [address] | | | [place] [address] | + + + | Home Phone | | + + + | Preferred Language | Unknown | + + + | Marital Status | | + + + | Yazidism Affiliation | Unknown | + + + | Race | Unknown | + + + | Ethnic Group | Unknown | + + + Author + + + | Author | [facility] | | | and [place] | + + + | Organization | [facility] | | | [...] Team Providers + +------+ + | Care Health Care Sanitary Technician Name | Role | Phone | [...] Provider Unknown | | | | | [place], [place] | [phone] | | | | | [address] | | | | | | [phone] | | | +--------+ + + + [...] MARCANO | | | | | | [place] [address] | | | | | | [phone] | | | | | | | | +--------+---------+ + + + documented as of this encounter Procedures + +--------+ + + + | Procedure Name | Priori | Date/Time | Associated Diagnosis | Comments | | | ty | | | | + +--------+ + + + | CT HEAD WO CONTRAST | Routin | 11/15/2009 | | Results for this | | | e | 5:01 AM | | procedure are in the | | | | PDT | | results section. | + +--------+ + + + documented in this encounter Results CT Head wo Contrast (11/15/2009 5:01 AM PDT) + + | Specimen | [...]
--- OUTSIDE RECORDS SUMMARY | ~2019-07-18 | XMS | Encounter Summary ---
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 referrals. I have advised her to restart her Plavix and ASA until fu rther instructions from neurology. Estimated ASA class 3 Other perioperative risk calculators: Not Applicable 0-5 = Not Frail 6-7 = Vulnerable 8-9 = Mid Frailty 10-11 = Moderate Frailty 12-17 = Severe Frailty ASSESSMENT and RECOMMENDATIONS: Perioperative risk assessment: Darcy Sun is a 63 y.o. female with diagnosis of lumbar stenosis with radiculopathy, scheduled for L3-4 AND L4-5 LAMINECTOMIES AND FORAMINOTOMIES. Based on the clinical information obtained and reviewed during this visit, the overall asses sment is that the patient is having elective major surgery with identified risk factors. T he patient is not stable / optimized for surgery. Additional testing/optimization is neede d. She has recent changes in vision and significant history of CVD. She will need a neurolo gy evaluation prior to proceeding with surgery. Due to her strong history of vascular diseas e, low mets and symptoms of GUNTER, I also recommend a cardiology evaluation to rule out any ca rdiovascular disease. I have notified SHAYE Cook and patient's PCP, Dr. Castillo. Mikaela Castillo will follow-up with patient and make the referrals. I have advised her to restart h er Plavix and ASA until further instructions from neurology. Medication management recommendations: The patient was advised to continue all usual med ications except as noted in Patient Instructions (After Visit Summary given to pt) Pre-procedure antibiotic recommendation: Per standard protocol. Smoker 1-1.5 ppd x 55 years. Cessation encouraged. Emphysema - on Atrovent bid and albuterol prn (usual use 1x/day). No recent hospitalizat ions or ER visit. + chronic cough and occasional wheezing. Patient instructed to use inhale rs as prescribed and bring them on the day of surgery. HTN - on atenolol and valsartan. Continue atenolol on the morning of surgery and hold th e valsartan. HLD - on statin. Continue perioperatively. PAD - s/p right aorto-fem bypass in 1997 Carotid artery stenosis s/p right CEA in 2009. Hypothyroidism - controlled on levothyroxine. Followed every 6 months by PCP. Last TSH s table 1 month ago per pt report. Continue levothyroxine on the morning of surgery. Hx TIA's and CVA - TIA in 2009 - During workup was found to have occluded L ICA and sign ificant stenosis of R ICA so she underwent R CEA with patch on 11/20/[address] Izaguirre at [facility] . Patient was started on ASA 325mg PO Daily at that time. Recurrent TIAs in 05/2011 and seen by neurology at [facility]. Per neurology note from 05/28/2011, "Patient's symptoms are likely 2/2 verebrobasilar insufficiency versus anterior circulation. 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 Patient has areas of intracranial stenosis, and based on most recent SAMMPRIS study, maximum medical therapy is superior to intracrania l stenting." Patient was started on Plavix and ASA at that time. She stopped Plavix after 3 months and continues ASA. Acute CVA s/p TPA on 02/25/2013 and transferred to [facility] from [facility] in [place], [place]. Patient monitored there and discharged home on 02/27/2018. Patient started on Plavix and ASA. No follow-up by neurology or vascular since 2012. Last dose of Plavix and ASA was yesterday. Double and blurred vision right eye - Patient reports 1.5 months of sudden onset double vision and blurring in right eye. She has not followed-up with anyone regarding these sympto ms. She denies any difficulties with speech, word finding, weakness in extremities or facial drooping. No follow-up with neurology or vascular since 2012. Recommend neurology evaluatio n prior to proceeding with surgery. SHAYE Cook and Patient's PCP, Dr. Castillo, not ified. Dr. Castillo with follow-up with patient and make the referrals. Patient instructed to r estart Plavix and ASA until further instructions from neurology. ETOH abuse - patient reports drinking 5 beers per day. Recommend cessation. GUNTER - with hills and stairs. Patient reports that this is longstanding. No recent cardio logy evaluation and patient has low MET's with significant history of vascular disease. Vinnie mmend cardiology consult prior to proceeding with surgery. Patient's PCP notified and will f ollow-up with patient and make the referral. Thank you for the opportunity to contribute to this patient's care. CECELIA Rivas [facility] 4TH FLOOR [address] [facility] [place] [address] I advised the patient regarding NPO requirements, hydration before surgery, showering, gene ral body hygiene. All pre-procedure instructions given to the patient (after-visit summary) . All of patient's questions were addressed. The patient verbalized understanding of the i nstructions given. Orlando Braden MA - 06/17/2018 2:50 PM PDTVenipuncture performed in clinic, blood s ample obtained from Right antecubital site documented in this encounter Plan of Treatment +--------+ + + + + | Date | Type | Specialty | Care Team | Description | +--------+ + + + + | 06/17/ | Hospital | Adult Acute Care | Jarrod Barrett MD | | | 2019 | Encounter | | [address] | | | | | | [place], | | | | | | [place] [address] | | | | | | [phone] | | | | | | | [...] | + + +--------+ + + | COMMUNICATION TO [facility] | Procedures | Routin | Preop examination | Ordered: 06/17/2018 | | LAB DRAW | | e | | | + + +--------+ + + documented as of this encounter Procedures + +--------+ + + + | Procedure Name | Priori | Date/Time | Associated Diagnosis | Comments | | | ty | | | | + +--------+ + + + | IL COLLECTION VENOUS | Routin | 06/17/2018 | Preop examination | | | BLOOD,VENIPUNCTURE | e | 3:22 PM | | | | | | PDT | | | + +--------+ + + + | CLIF ACUÑA, MRSA | Routin | 06/17/2018 | Preop examination | Results for this | | BY PCR, NASAL ONLY | e | 3:22 PM | | procedure are in the | | | | PDT | | results section. | + +--------+ + + + | CBC AND AUTO DIFF | Routin | 06/17/2018 | Preop examination | Results for this | | | e | 3:22 PM | | procedure are in the | | | | PDT | | results section. | + +--------+ + + + | CBC, WITH | Routin | 06/17/2018 | Preop examination | Results for this | | DIFFERENTIAL | e | 3:22 PM | | procedure are in the | | | | PDT | | results section. | + +--------+ + + + | PREALBUMIN, SERUM | Routin | 06/17/2018 | Preop examination | Results for this | | | e | 3:22 PM | | procedure are in the | | | | PDT | | results section. | + +--------+ + + + | COMPLETE METABOLIC | Routin | 06/17/2018 | Preop examination | Results for this | | SET | e | 3:22 PM | | procedure are in the | | (NA,K,CL,CO2,BUN,CRE | | PDT | | results section. | | AT,GLUC,CA,AST,ALT,B | | | | | | MANFRED TOTAL,ALK | | | | | | PHOS,ALB,PROT TOTAL) | | | | | + +--------+ + + + | ANTIBODY SCREEN | Routin | 06/17/2018 | Preop examination | Results for this | | | e | 3:22 PM | | procedure are in the | | | | PDT | | results section. | + +--------+ + + + | TYPE AND SCREEN | Routin | 06/17/2018 | Preop examination | Results for this | | | e | 3:22 PM | | procedure are in the | | | | PDT | | results section. | + +--------+ + + + | ABO & RH TYPE | Routin | 06/17/2018 | Preop examination | Results for this | | | e | 3:22 PM | | procedure are in the | | | | PDT | | results section. | + +--------+ + + + | 12 LEAD ECG | Routin | 06/17/2018 | Preop examination | Results for this | | | e | 3:04 PM | | procedure are in the | | | | PDT | | results section. | + +--------+ + + + documented in this encounter Results CBC AND AUTO DIFF (06/17/2018 3:22 PM PDT) + + + + + + | Component | Value | Ref Range | Performed | Pathologist | | | | | At | Signature | + + + + + + | WHITE CELL | 10.05 | 3.50 - 10.80 | [facility] | | | COUNT | | K/cu mm | LABORATORY | | | | | | SERVICES, | | | | | | CORE | | + + + + + + | RED CELL | 3.74 (L) | 4.00 - 5.20 | [facility] | | | COUNT | | M/cu mm | LABORATORY | | | | | | SERVICES, | | | | | | CORE | | + + + + + + | HEMOGLOBIN | 13.2 | 12.0 - 16.0 | [facility] | | | | | g/dL | LABORATORY | | | | | | SERVICES, | | | | | | CORE | | + + + + + + | HEMATOCRIT | 38.6 | 36.0 - 46.0 % | [facility] | | | | | | LABORATORY | | | | | | SERVICES, | | | | | | CORE | | + + + + + + | MCV | 103.2 (H) | 80.0 - 100.0 fL | [facility] | | | | | | LABORATORY | | | | | | SERVICES, | | | | | | CORE | | + + + + + + | MCHC | 34.2 | 32.0 - 36.0 | [facility] | | | | | g/dL | LABORATORY | | | | | | SERVICES, | | | | | | CORE | | + + + + + + | RDW SD | 53.1 (H) | 35.1 - 46.3 fL | [facility] | | | | | | LABORATORY | | | | | | SERVICES, | | | | | | CORE | | + + + + + + | PLATELET | 485 (H) | 150 - 400 K/cu | [facility] | | | COUNT | | mm | LABORATORY | | | | | | SERVICES, | | | | | | CORE | | + + + + + + | MPV | 8.9 (L) | 9.7 - 12.3 fL | [...] + + + + + + | NEUTROPHIL | 65.4 | 50.0 - 70.0 % | [facility] | | | % | | | LABORATORY | | | | | | SERVICES, | | | | | | CORE | | + + + + + + | LYMPHOCYTE | 19.8 | 18.0 - 42.0 % | [facility] | | | % | | | LABORATORY | | | | | | SERVICES, | | | | | | CORE | | + + + + + + | MONOCYTE % | 10.5 (H) | 3.5 - 9.0 % | [facility] | | | | | | LABORATORY | | | | | | SERVICES, | | | | | | CORE | | + + + + + + | EOS % | 2.8 | 1.0 - 3.0 % | [facility] | | | | | | LABORATORY | | | | | | SERVICES, | | | | | | CORE | | + + + + + + | BASO % | 1.1 | 0.0 - 2.0 % | [facility] | | | | | | LABORATORY | | | | | | SERVICES, | | | | | | CORE | | + + + + + + | IG% | 0.4Comment: Increased | 0.0 - 1.0 % | [facility] | | | | immature granulocytes | | LABORATORY | | | | (IG) define a left | | SERVICES, | | | | shift. Immature | | CORE | | | | granulocytes (IG) are an | | | | | | automated count of | | | | | | metamyelocytes, | | | | | | myelocytes and | | | | | | promyelocytes. Bands | | | | | | are not included in the | | | | | | IG count. Bands are | | | | | | included in the | | | | | | neutrophil count. | | | | + + + + + + | NEUTROPHIL | 6.57 | 1.80 - 7.70 | [facility] | | | # | | K/cu mm | LABORATORY | | | | | | SERVICES, | | | | | | CORE | | + + + + + + | LYMPHOCYTE | 1.99 | 1.00 - 4.80 | [facility] | | | # | | K/cu mm | LABORATORY | | | | | | SERVICES, | | | | | | CORE | | + + + + + + | MONOCYTE # | 1.06 (H) | 0.10 - 0.90 | [facility] | | | | | K/cu mm | LABORATORY | | | | | | SERVICES, | | | | | | CORE | | + + + + + + | EOS # | 0.28 | 0.00 - 0.50 | [facility] | | | | | K/cu mm | LABORATORY | | | | | | SERVICES, | | | | | | CORE | | + + + + + + | BASO # | 0.11 (H) | 0.00 - 0.10 | [facility] | | | | | K/cu mm | LABORATORY | | | | | | SERVICES, | | | | | | CORE | | + + + + + + | IG# | 0.04 | 0.00 - 0.10 | [facility] | | | | | K/cu mm | LABORATORY | | | | | | SERVICES, | | | | | | CORE | | + + + + + + + + | Specimen | + + | Blood - Blood | | (substance) | + + + + + | Narrative | Performed At | + + + | New pediatric reference ranges for Lymphocyte % in effect February 04, | [facility] | | 2017. New reference ranges for MCV, MCHC, PLT, IG% and IG# | LABORATORY | | effective 12/31/2017 Increased immature granulocytes (IG) define a | SERVICES, CORE | | left shift. Immature granulocytes (IG) are an automated count of | | | metamyelocytes, myelocytes and promyelocytes. Bands are not included | | | in the IG count. Bands are included in the neutrophil count. | | + + + + + + + + | Performing | Address | City/State/Zipcode | Phone Number | | Organization | | | | + + + + + | [facility] | [address] | [place] [address] | | | SERVICES, CORE | [address] | | | + + + + + ANTIBODY SCREEN (06/17/2018 3:22 PM PDT) + + + + + [...] + + | [facility] | [address] | [place] [address] | | | SERVICES, | [address] | | | | TRANSFUSION MEDICINE | | | | + + + + + ABO & RH TYPE (06/17/2018 3:22 PM PDT) + + + + + [...] | + + + + + | [facility] | [address] | [place] [address] | | | SERVICES, | [address] | | | | TRANSFUSION MEDICINE | | | | + + + + + STAPH SCREEN, MRSA BY PCR, NASAL ONLY (06/17/2018 3:22 PM PDT) + + + + + + | Component | Value | Ref Range | Performed | Pathologist | | | | | At | Signature | + + + + + + | MRSA/MSSA | Not Detected | Not Detected | [facility] | | | | | | LABORATORY | | | | | | SERVICES, | | | | | | CORE | | + + + + + + + + | Specimen | + + | Swab - Nasal | | (qualifier value) | + + + + + + + | Performing | Address | City/State/Zipcode | Phone Number | | Organization | | | | + + + + + | [facility] | [address] | [place] [address] | | | SERVICES, [place] | [address] | | | + + + + + PREALBUMIN (06/17/2018 3:22 PM PDT) + +-------+ + + + | Component | Value | Ref Range | Performed | Pathologist | | | | | At | Signature | + +-------+ + + + | PREALBUMIN | 22.5 | 17.0 - 42.0 | [facility] | | | | | mg/dL | [facility] | | | [facility] | | + +-------+ + + + + + | Specimen | + + | Blood - Blood | | (substance) | + + + + + + + | Performing | Address | City/State/Zipcode | Phone Number | | Organization | | | | + + + + + | [facility] | [address] | [place] [address] | | | [place] | | | | + + + + + COMPLETE METABOLIC SET (NA,K,CL,CO2,BUN,CREAT,GLUC,CA,AST,ALT,BILI TOTAL,ALK PHOS,ALB,PROT TOTAL) (06/17/2018 3:22 PM PDT) + + + + + + | Component | Value | Ref Range | Performed | Pathologist | | | | | At | Signature | + + + + + + | GLUCOSE, | 72 | 70 - 99 mg/dL | [facility] | | | PLASMA | | | LABORATORY | | | (LAB) | | | SERVICES, | | | | | | CORE | | + + + + + + | BUN, PLASMA | 6 | 6 - 20 mg/dL | [facility] | | | (LAB) | | | LABORATORY | | | | | | SERVICES, | | | | | | CORE | | + + + + + + | CREATININE | 0.44 (L) | 0.60 - 1.10 | [facility] | | | PLASMA | | mg/dL | LABORATORY | | | (LAB) | | | SERVICES, | | | | | | CORE | | + + + + + + | EGFR | >60 | >60 mL/min | [facility] | | | - | | | LABORATORY | | | [place] | | | SERVICES, | | | | | | CORE | | + + + + + + | EGFR NON | >60 | >60 mL/min | [facility] | | | -FIDEL | | | LABORATORY | | | RICAN | | | SERVICES, | | | | | | CORE | | + + + + + + | SODIUM, | 130 (L) | 136 - 145 | [facility] | | | PLASMA | | mmol/L | LABORATORY | | | (LAB) | | | SERVICES, | | | | | | CORE | | + + + + + + | POTASSIUM, | 6.6 (HH) | 3.4 - 5.0 | [facility] | | | PLASMA | | mmol/L | LABORATORY | | | (LAB) | | | SERVICES, | | | | | | CORE | | + + + + + + | CHLORIDE, | 103 | 97 - 108 mmol/L | [facility] | | | PLASMA | | | LABORATORY | | | (LAB) | | | SERVICES, | | | | | | CORE | | + + + + + + | TOTAL CO2, | 16 (L) | 21 - 32 mmol/L | [facility] | | | PLASMA | | | LABORATORY | | | (LAB) | | | SERVICES, | | | | | | CORE | | + + + + + + | CALCIUM, | 8.5 (L) | 8.6 - 10.2 | [facility] | | | PLASMA | | mg/dL | LABORATORY | | | (LAB) | | | SERVICES, | | | | | | CORE | | + + + + + + | CALCIUM(ALB | 9.0 | 8.6 - 10.2 | [facility] | | | CORRECTED) | | mg/dL | LABORATORY | | | | | | SERVICES, | | | | | | CORE | | + + + + + + | BILIRUBIN | 0.5 | 0.3 - 1.2 mg/dL | [facility] | | | TOTAL | | | LABORATORY | | | | | | SERVICES, | | | | | | CORE | | + + + + + + | TOTAL | 8.0 | 6.4 - 8.2 g/dL | [facility] | | | PROTEIN, | | | LABORATORY | | | PLASMA | | | SERVICES, | | | (LAB) | | | CORE | | + + + + + + | ALBUMIN, | 3.4 (L) | 3.5 - 4.7 g/dL | [facility] | | | PLASMA | | | LABORATORY | | | (LAB) | | | SERVICES, | | | | | | CORE | | + + + + + + | ALK PHOS | 91 | 53 - 141 U/L | [facility] | | | | | | LABORATORY | | | | | | SERVICES, | | | | | | CORE | | + + + + + + | AST(SGOT) | 55 (H) | <=41 U/L | [facility] | | | | | | LABORATORY | | | | | | SERVICES, | | | | | | CORE | | + + + + + + | ALT (SGPT) | 24 | <=60 U/L | [facility] | | | | | | LABORATORY | | | | | | SERVICES, | | | | | | CORE | | + + + + + + | ANION GAP | 11 | 4 - 11 mmol/L | [facility] | | | | | | LABORATORY | | | | | | SERVICES, | | | | | | CORE | | + + + + + + | ANION | 12 (H) | 4 - 11 mmol/L | [facility] | | | GAP(ALB | | | LABORATORY | | | CORRECTED) | | | SERVICES, | | | | | | CORE | | + + + + + + | POTASSIUM | Mk Hemo | | [facility] | | | CMNT | | | LABORATORY | | | | | | SERVICES, | | | | | | CORE | | + + + + + + | BILI T CMNT | Mk Hemo | | [facility] | | | | | | LABORATORY | | | | | | SERVICES, | | | | | | CORE | | + + + + + + | AST CMNT | Mk Hemo | | [facility] | | | | | | LABORATORY | | | | | | SERVICES, | | | | | | CORE | | + + + + + + + + | Specimen | + + | Blood - Blood | | (substance) | + + + + + | Narrative | Performed At | + + + | Sample hemolyzed. Results for K, Total Bili, Direct Bili, AST, | [facility] | | LDH, or HDL may be inaccurate. Refer to comment under test result. | LABORATORY | | GFR is estimated using the MDRD equation recommended by the National | SERVICES, CORE | | Kidney Disease Education Program. Estimated GFR Interpretive | | | Information: <60 mL/min/1.73 sq m Chronic Kidney | | | Disease <15 mL/min/1.73 sq m Kidney Failure | | | Estimated GFR greater that 60 mL/min/1.73 sq m is of limited clinical | | | value. The MDRD equation is not valid in the following situations: | | | - Patients under 18 years of age - Severe malnutrition or obesity | | | - Vegetarian diet - Rapidly changing kidney function - Amputees, | | | paraplegics, or other muscle-wasting diseses | | + + + + + + + + | Performing | Address | City/State/Zipcode | Phone Number | | Organization | | | | + + + + + | [facility] | [address] | [place] [address] | | | SERVICES, CORE | [address] | | | + + + + + 12 LEAD ECG (06/17/2018 3:04 PM PDT) + + + + + + | Component | Value | Ref Range | Performed | Pathologist | | | | | At | Signature | + + + + + + | VENTRICULAR | 57 | bpm | [facility] | | | RATE | | | OF | | | | | | CARDIOLOGY | | + + + + + + | ATRIAL RATE | 58 | ms | [facility] | | | | | | OF | | | | | | CARDIOLOGY | | + + + + + + | P-R | 191 | ms | [facility] | | | INTERVAL | | | OF | | | | | | CARDIOLOGY | | + + + + + + | P AXIS | 30 | deg | [facility] | | | | | | OF | | | | | | CARDIOLOGY | | + + + + + + | QRS | 71 | ms | [facility] | | | DURATION | | | OF | | | | | | CARDIOLOGY | | + + + + + + | QT | 409 | ms | [facility] | | | | | | OF | | | | | | CARDIOLOGY | | + + + + + + | QTCB | 398 | ms | [facility] | | | | | | OF | | | | | | CARDIOLOGY | | + + + + + + | R AXIS | -13 | deg | [facility] | | | | | | OF | | | | | | CARDIOLOGY | | + + + + + + | T AXIS | 61 | deg | [facility] | | | | | | OF | | | | | | CARDIOLOGY | | + + + + + + | ECG | Sinus bradycardia | | [facility] | | | IMPRESSION | | | OF | | | | | | CARDIOLOGY | | + + + + + + | ECG | Probable left atrial | | [facility] | | | IMPRESSION | enlargement | | OF | | | | | | CARDIOLOGY | | + + + + + + | ECG | Minimal ST elevation, | | [facility] | | | IMPRESSION | anterior leads- | | OF | | | | BORDERLINE ECG - | | CARDIOLOGY | | + + + + + + | ECG | Electronically signed | | [facility] | | | IMPRESSION | by: GRACE VÁSQUEZ | | OF | | | | 06-17-2018 16:47:39 | | CARDIOLOGY | | + + + + + [...] + + + + + | [facility] | [address] | [place], [place] | | | CARDIOLOGY | [address] | [address] | | + + + + + documented in this encounter Visit Diagnoses + + | Diagnosis | + + | Preop examination - Primary Preoperative examination, unspecified | + + | S/P carotid endarterectomy Other postprocedural status | + + | TIA (transient ischemic attack) Unspecified transient cerebral ischemia | + + | Claudication, intermittent (HCC) Peripheral vascular disease, unspecified | + + | PVD (peripheral vascular disease) (HCC) Peripheral vascular disease, unspecified | + + | H/O aorto-femoral bypass Personal history of surgery to heart and great vessels, | | presenting hazards to health | + + | Cerebrovascular accident (CVA), unspecified mechanism (HCC) | + + | Pulmonary emphysema, unspecified emphysema type (HCC) | + + | Smoker Tobacco use disorder | + + | Essential hypertension | + + | Hyperlipidemia, unspecified hyperlipidemia type | + + | Anticoagulated Encounter for long-term (current) use of anticoagulants | + + | ETOH abuse Alcohol abuse, unspecified | + + | Spinal stenosis of lumbar region, unspecified whether neurogenic claudication present | + + | History of double vision Personal history of other disorders of nervous system and | | sense organs | + + | Blurred vision, right eye Other specified visual disturbances | + + | Bilateral carotid artery stenosis Occlusion and stenosis of multiple and bilateral | | precerebral arteries without mention of cerebral infarction | + + | GUNTER (dyspnea on exertion) Other dyspnea and respiratory abnormality | + + documented in this encounter
--- OUTSIDE RECORDS SUMMARY | ~2019-07-18 | XMS | Encounter Summary ---
Demographics + + + | Address | [address] | | | [place] [address] | + + + | Home Phone | | + + + | Preferred Language | Unknown | + + + | Marital Status | | + + + | Jewish Affiliation | Unknown | + + + | Race | Unknown | + + + | Ethnic Group | Unknown | + + + Author + + + | Author | [facility] | | | and [place] | + + + | Organization | [facility] | | | and [...] Providers + +------+ + | Care Rn Care Manager Name | Role | Phone | + +------+ + PCP | Unavailable | + +------+ + Encounter Details +--------+ + + + + | Date | Type | Department | Care Team | Description | +--------+ + + + + | 07/29/ | Hospital | [place] [facility] | [facility] | | | 2011 | Encounter | [facility] [address] | [address] | | | | | [address] | [facility], | | | | | [place], [place] | [place] [address] | | | | | [address] | [phone] | | | | | [phone] | | | +--------+ + + + [...] [address] | | | | | | [place] [address] | | | | | | [phone] | | | | | | | | +--------+---------+ + + + documented as of this encounter Visit Diagnoses Not on filedocumented in this encounter"
--- OUTSIDE RECORDS SUMMARY | ~2019-07-18 | XMS | Encounter Summary ---
Demographics + + + | Address | [address] | | | [place] [address] | + + + | Home Phone | | + + + | Preferred Language | Unknown | + + + | Marital Status | Single | + + + | Alevism Affiliation | NON | + + + | Race | White | + + + | Ethnic Group | Not or | + + + Author + + + | Author | [facility] | + + + | Organization | [facility] | + + + | Address | [...] Team Providers + +------+ + | Care Algology Teacher Name | Role | Phone | + +------+ + | Heide Bhatti | PCP | | + +------+ + Encounter Details +--------+ + + + + | Date | Type | Department | Care Team | Description | +--------+ + + + + | 12/03/ | Telephone | Vascular Surgery | Kaveh Izaguirre MD | | | 2011 | | at [facility] 2nd Floor | [address] | | | | | [address] | [address] [place], | | | | | [address] Mailcode: | [place] [address] | | | | | [address] Physician's | [phone] | | | | | [place], | | | | | | [place] [address] | | | | | | [phone] | | | +--------+ + + + [...] | | | | | [place], | | | | | | [place] [address] | | | | | | [phone] | | | | | | | [...] Primary | + + | 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
--- OUTSIDE RECORDS SUMMARY | ~2019-07-18 | XMS | Encounter Summary ---
Demographics + + + | Address | [address] | | | [place] [address] | + + + | Home Phone | | + + + | Preferred Language | Unknown | + + + | Marital Status | | + + + | Jewish Affiliation | Unknown | + + + | Race | Unknown | + + + | Ethnic Group | Unknown | + + + Author + + + | Author | [facility] | | | and [place] | + + + | Organization | [facility] | | [...] Team Providers + +------+ + | Care Environmental Journalist Name | Role | Phone | + [...] [address] | | | | [place], | [place], | | | | | [place] [address] | [place] [address] | | | | | [phone] | [phone] | | | | | | | [...] [address] | | | | | | [place] [address] | | | | | | [phone] | | | | | | | | +--------+---------+ + + + documented as of this encounter Visit Diagnoses Not on filedocumented in this encounter"
--- OUTSIDE RECORDS SUMMARY | ~2019-07-18 | XMS | Encounter Summary ---
Demographics + + + | Address | [address] | | | [place] [address] | + + + | Home Phone | | + + + | Preferred Language | Unknown | + + + | Marital Status | Single | + + + | Druze Affiliation | NON | + + + | Race | White | + + + | Ethnic Group | Not or | + + + Author + + + | Author | [facility] | + + + | Organization | [facility] | + + + | [...] Team Providers + +------+ + | Care Pump Installation And Servicer Name | Role | Phone | + [...] | | of carotid | [place] | [facility] | | | | | artery | [address] | Rd Mailcode: | | | | | without | [place], [place] | [address] | | | | | mention of | [address] | Physician's | | | | | cerebral | Phone: | Pavilion | | | | | infarction | [phone] | [place], [place] | | | | | Atherosclero | Fax: | [address] | | | | | sis of | [phone] | Phone: | | | | | [place] | | [phone] | | | | | arteries of | | Fax: | | | | | the | | [phone] | | | | | extremities | [...] | | | | of carotid | [place] | [facility] | | | | | artery | [address] | [address] Mailcode: | | | | | without | [place], [place] | [address] | | | | | mention of | [address] | Physician's | | | | | cerebral | Phone: | Pavilion | | | | | infarction | [phone] | [place], [place] | | | | | Atherosclero | Fax: | [address] | | | | | sis of | [phone] | Phone: | | | | | [place] | | [phone] | | | | | arteries of | | Fax: | | | | | the | | [phone] | | | | | extremities | [...] | | | | | | | [place], [place] | | | | | | | [address] | | | | | | | Phone: | | | | | | | [phone] | | | | | | | Fax: | | | | | | | [phone] | +--------+--------+ + + + + Encounter Details +--------+---------+ + + + | Date | Type | Department | Care Team | Description | +--------+---------+ + + + | 05/28/ | Office | Vascular Surgery | Kaveh Arroyo MD | Occlusion and | | 2010 | Visit | at [facility] 2nd Floor | [address] | stenosis of carotid | | | | [address] [facility] | [place], | artery without | | | | [place] Mailcode: | [place] [address] | mention of cerebral | | | | [address]11 Physician's | [phone] | infarction; | | | | [place], | | Atherosclerosis of | | | | [place] [address] | | [place] arteries of | | | | [phone] | | the extremities with | | [...] of right aorto-femora l bypass in the ([place]) and right carotid endarterectomy in October 2009 ([facility]). Prior to endarterectomy she had 80% stenosis [...] for 2.5 hrs and presented to the [place] ED where she had a head CT and was sent home. Yesterday evening she had an episo de of both legs giving out, with her son describing a concomitant left facial droop. She wa s taken by ambulance back to the ED, where it was recommended she come to [facility]. She feels t hat she is having [...] and I think that these replace the skip miner blasting bilaterally. A/P: Ms. Sun is a 56 yo female with an extensive hx of PAD and carotid artery dz, now with a 1 w [place] hx of episodes that are historically consistent [...] KAVEH ARROYO MD VASCULAR SURGERY [address] [facility] Mailcode: [address] [place] [id number] documented in this enco unter Plan of Treatment +--------+ + + + + | Date | Type | Specialty | Care Team | Description | +--------+ + + + + | 06/17/ | Hospital | Adult Acute Care | Jarrod Barrett MD | | | 2019 | Encounter | | [address] | | | | | | [place], | | | | | | [place] [address] | | | | | | [phone] | | | | | | | [...] | | | | ANKLE BRACH | [id number] Name: | | | | | INDICS [...] | | | | | PMAccession # [id number] | | | | | | RESULT:LOWER [...] the | | | | | | qmp-nz-aclyur arteries | | | | | | [...] | | + +---------+ + + | [facility] DEPARTMENT OF | | | | | [...] | | | | | CAROTID | [id number] Name: | | | | | DUPLEX | DARCY SUN Birthday: | | | | | COMPLETE | 1955 Sex: F | | | | | BILATERAL | Alias: Patient Location: | | | | | | [id number]: | | | | | | Outpatient [...] # | | | | | | [id number] | | | | | | RESULT:CEREBROVASCULAR [...] | | + +---------+ + + | [facility] DEPARTMENT OF | | | | | RADIOLOGY | | | | + +---------+ + + documented in this encounter Visit Diagnoses + + | Diagnosis | + + | Occlusion and stenosis of carotid artery without mention of cerebral infarction | + + | Atherosclerosis of [place] arteries of the extremities with intermittent claudication | + + documented in this encounter"
--- OUTSIDE RECORDS SUMMARY | ~2019-07-18 | XMS | Encounter Summary ---
Demographics + + + | Address | [address] | | | [place] [address] | + + + | Home Phone | | + + + | Preferred Language | Unknown | + + + | Marital Status | Single | + + + | Sabianist Affiliation | NON | + + + [...] Team Providers + +------+ + | Care Certified Travel Counselor Name | Role | Phone | + [...] | | | | | [place], | | | | | | [place] [address] | | | | | | [phone] | | | | | | | | +--------+ + + + + | 06/18/ | Procedure | Surgery | | | | 2019 | Pass | | | | +--------+ + + + + documented as of this encounter Visit Diagnoses Not on filedocumented in this encounter"
--- OUTSIDE RECORDS SUMMARY | ~2019-07-18 | XMS | Encounter Summary ---
Demographics + + + | Address | [address] | | | [place] [address] | + + + | Home Phone | | + + + | Preferred Language | Unknown | + + + | Marital Status | | + + + | Hoahaoism Affiliation | Unknown | + + + | Race | Unknown | + + + | Ethnic Group | Unknown | + + + Author + + + | Author | [facility] | | | and [place] | + + + | Organization | [facility] | | | [...] Providers + +------+ + | Care Clinical Program Manager Name | Role | Phone | + +------+ + | Litzy Castillo MD | PCP | | + +------+ + Encounter Details +--------+ + + + + | Date | Type | Department | Care Team | Description | +--------+ + + + + | 08/27/ | Hospital | [facility] GENERIC IP | Conversion | Diagnosis unknown | | 2019 | Encounter | CONVERSION [address] | Transaction, | | | | | [address] | Provider Unknown | | | | | [place], [place] | [phone] | | | | | [address] | | | | | | [phone] | | | +--------+ + + + [...] [address]ARC[address]O | | | | | | [place] [address] | | | | | | [phone] | | | | | | | | +--------+---------+ + + + documented as of this encounter Procedures + +--------+ + + + | Procedure Name | Priori | Date/Time | Associated Diagnosis | Comments | | | ty | | | | + +--------+ + + + | CT ANGIOGRAM HEAD W | Routin | 07/23/2018 | | Results for this | | CONTRAST | e | 5:25 PM | | procedure are in the | | | | PST | | results section. | + +--------+ + + + documented in this encounter Results CT Angiogram Head w Contrast (07/23/2018 5:25 PM PST) + + | Specimen | [...]
--- OUTSIDE RECORDS SUMMARY | ~2019-07-18 | XMS | Encounter Summary ---
Demographics + + + | Address | [address] | | | [place] [address] | + + + | Home Phone [...] Team Providers + +------+ + | Care Investment Representative Name | Role | Phone | + [...] | | | | | ADULT | [place] | | | | | | OPHTHALMOLOG | [address] | | | | | | Y | Phone: | | | | | | | [phone] | | | | | | | Fax: | | | | | | | [phone] | | + +--------+ + + + [...] | | | | | artery | [facility] [place] | | | | | | stenosis, | [address] | | | | | | right | Phone: | | | | | | Procedures | [phone] | | | | | | CTA HEAD AND | Fax: | | | | | | NECK W | [phone] | | | | | | CONTRAST [...] | ischemic | [address] | [address] | | | | | attack) S/P | [place], [place] | Mailcode: | | | | | carotid | [address] | [address] | | | | | endarterecto | Phone: | [place] | | | | | my | [phone] | Research | | | | | Cerebrovascu | Fax: | Center [address] | | | | | lar accident | [phone] | floor | | | | | (CVA), | | [place], [place] | | | | | unspecified | | [address] | | | | | mechanism | | Phone: | | | | | ([facility]) | | [phone] | | | | | Procedures | | Fax: | | | | | CONSULT TO | | [phone] | | | | | NEUROLOGY | [...] endarterectomy | | | uled | [facility] | [address] | (Primary Dx); | | | | Rd [place], [place] | [place], [place] | Internal carotid | | | | [address] | [address] | artery stenosis, | | | | [phone] | [phone] | right; Blurred | | | | [...] original. NEUROLOGY TELESTROKE CLINIC INITIAL CONSULT NOTE ([facility]) Author: MARICHUY MINOR MD Reason for Consultation: [...] right leg pain which was evaluated by [facility] spine service. Patient states that [...] eye vision problems. Has not see n electrical products engineer or custom stock maker for this. It is also unchanged. PMH: No date: Anticoagulated No date: Asthma No date: Blurred vision, right eye No date: Carotid occlusion, left No date: Carotid stenosis, right 05/28/2011: Claudication, intermittent ([facility]) 02/25/2013: CVA (cerebral vascular accident) ([facility]) No date: Double vision Comment: right eye No date: Emphysema lung ([facility]) No date: ETOH abuse No date: HTN (hypertension) No date: Hyperlipidemia No date: ICAO (internal carotid artery occlusion), left No date: Intracranial carotid stenosis No date: Lumbago No date: PAD (peripheral artery disease) ([facility]) No date: Personal history of tobacco use [...] calcified which co uld create a shadow. director graphics bilaterally seen. Right ICA cervical origin widely [...] al antiplatelet therapy at this time, as fdc use has not been shown to be [...] of right ICA stenosis, Will order at [facility] -Ophthalmology consultation, will refer to [facility] as it is local for rona [...] medications and F/U reviewed. Marichuy Minor M.D. Inventory Control Planner Vascular Neurology documented in th is encounter Plan of Treatment +--------+ + + + + | Date | Type | Specialty | Care Team | Description | +--------+ + + + + | 06/17/ | Hospital | Adult Acute Care | Jarrod Barrett MD | | | 2019 | Encounter | | [address] | | | | | | [place], | | | | | | [place] [address] | | | | | | [phone] | | | | | | | [...]
--- OUTSIDE RECORDS SUMMARY | ~2019-07-18 | XMS | Encounter Summary ---
Demographics + + + | Address | [address] | | | [place] [address] | + + + | Home Phone | | + + + | Preferred Language | Unknown | + + + | Marital Status | | + + + | Jehovah'S Witness Affiliation | Unknown | + + + | Race | Unknown | + + + | Ethnic Group | Unknown | + + + Author + + + | Author | [facility] | | | and [place] | + + + | Organization | [facility] | | [...] Team Providers + +------+ + | Care Carbon Brusher Assembler Name | Role | Phone | [...] | | [address] | [address] [facility] | | | | | [place], [place] | Way [facility], | | | | | [address] | [place] [address] | | | | | [phone] | [phone] | | | | | | | [...] Nicole Burgess MD - 04/10/2012 1:30 AM [place] [facility] Dictating Practitioner: NICOLE LOBO MD Patient Name: DARCY ALVARADO Patient Date of : 1955 Visit Number: [id number] DISCHARGE SUMMARY DATE OF DISCHARGE: 04/10/2012. DISCHARGE [...] home medications. cc: CECELIA Martinez [email or web address] / [id number] Dictation Date/Time: April 10, 2012 11:57AM Powerhouse Operator Date/Time: April 12, 2012 06:27AM Authenticated and Edited by Nicole Lobo MD On 04/16/12 11:26:50 AM [facility] Signed and Approved by: NICOLE LOOB MD 04/16/2012 11:26:00 documented in this encounter [...] [address] | | | | | | [place] [address] | | | | | | [phone] | | | | | | | | +--------+---------+ + + + documented as of this encounter Visit Diagnoses Not on filedocumented in this encounter"
--- OUTSIDE RECORDS SUMMARY | ~2019-07-18 | XMS | Encounter Summary ---
Demographics + + + | Address | [address] | | | [place] [address] | + + + | Home Phone | | + + + | Preferred Language | Unknown | + + + | Marital Status | | + + + | Sikhism Affiliation | Unknown | + + + | Race | Unknown | + + + | Ethnic Group | Unknown | + + + Author + + + | Author | [facility] | | | and [place] | + + + | Organization | [facility] | | [...] Team Providers + +------+ + | Care Chief Construction Inspector Name | Role | Phone | + +------+ + PCP | Unavailable | + +------+ + Encounter Details +--------+ + + + + | Date | Type | Department | Care Team | Description | +--------+ + + + + | 04/04/ | Hospital | [place] [facility] | Yahir Hernandez | | | 2011 | Encounter | HOSPITAL EMERGENCY | MD Kenny [address] | | | | | [place] [address] | [place] | | | | | [place], [place] | [address] | | | | | [address] | [phone] | | | | | [phone] | | | +--------+ + + + [...] | | | | | [place] [address] | | | | | | [phone] | | | | | | | | +--------+---------+ + + + documented as of this encounter Visit Diagnoses Not on filedocumented in this encounter"
--- OUTSIDE RECORDS SUMMARY | ~2019-07-18 | XMS | Encounter Summary ---
Demographics + + + | Address | [address] | | | [place] [address] | + + + | Home Phone | | + + + | Preferred Language | Unknown | + + + | Marital Status | Single | + + + | Shinto Affiliation | NON | + + + [...] Team Providers + +------+ + | Care Animal Behaviourist Name | Role | Phone | + [...] | | | | | [place], | | | | | | [place] [address] | | | | | | [phone] | | | | | | | | +--------+ + + + + | 06/18/ | Procedure | Surgery | | | | 2019 | Pass | | | | +--------+ + + + + documented as of this encounter Visit Diagnoses Not on filedocumented in this encounter"
--- OUTSIDE RECORDS SUMMARY | ~2019-07-18 | XMS | Encounter Summary ---
Demographics + + + | Address | [address] | | | [place] [address] | + + + | Home Phone | | + + + | Preferred Language | Unknown | + + + | Marital Status | Single | + + + | Baptism Affiliation | NON | + + + [...] Team Providers + +------+ + | Care Chaser Apprentice Name | Role | Phone | + +------+ + | Heide Bhatti | PCP | | + +------+ + Encounter Details +--------+---------+ + + + | Date | Type | Department | Care Team | Description | +--------+---------+ + + + | 05/28/ | Office | [facility] | Iván, | TIA (transient | | 2010 | Visit | [facility] | MD Marichuy | ischemic attack) | | | | [facility] | | (Primary Dx) | | | | [address] | | | | | | [place] Mailcode: | | | | | | [address] [place] | | | | | | [facility] | | | | | | floor [place], [place] | | | | | | [address] | | | | | | [phone] | | | +--------+---------+ + + + [...] | Blood Pressure | 138/62 | 05/28/2011 3:38 PM | | | | | PDT | | + + + + + | Pulse | 69 | 05/28/2011 3:38 PM | | | | | PDT [...] | 62.6 kg (138 lb) | 05/28/2011 3:38 PM | | | | | PDT | | + + + + + | Height | - | - | | + + + + + | Body Mass Index | 26.95 | 05/28/2011 1:04 PM | | | | | PDT | | + + + + + documented in this encounter Progress Notes Iván Lin, Marichuy - 05/28/2011 4:04 PM PDT NEUROLOGY STROKE CLINIC INITIAL CONSULT NOTE Author: MARICHUY DEVLIN MD PCP: Dr Heide Bhatti Reason for Consultation: Recurrent TIAs HPI: Darcy Sun is a 56 y.o. Right-handed female with h/o HTN, HLD, carotid occlusion and R CEA who presented today to vascular surgery clinic for follow up. During the visit, patient explained that she has had recurrent TIA symptoms since Thursday. Patient's son was present during encounter, and history was obtained from both people. Patient states that back in 11/2009 she had an episode of R extremity weakness, aphasia and drooling that resolved. During workup was found to have occluded L ICA and significant steno sis of R ICA so she underwent R CEA. Patient has been on ASA 325mg PO Daily since. One week ago on 05/20/11 patient was standing in the kitchen then developed LLE numbness the n flaccid paralysis of that limb with no other symptoms or limb involvement. It lasted 25 mi nutes. Then on Thursday05/23/11 patient was reading a book with her RUE went numb and then de veloped flaccid weakness for 2.5hours with no other symptoms or limb involvement. Yesterday morning patient woke up in the AM to get tea and noted drooling in her mouth and couldn't swallow; she states this was transient. Then in the afternoon while using the comp uter she stood up for a brief walk and initially developed LLE plegia then RLE plegia. Shor tly after that she developed shaking of b/l UE. There was no ALOC no post-ictal phenomena. S he says the weakness lasted 3 hours, and the shaking 30 minutes. There was some left facial weakness associated with the episode. Patient cannot recall any alleviating or triggering factors to the episodes. She endorses s ome lightheadedness with episodes and blurred vision but no vertigo or diplopia. No h/o ble eding problems, or hemorrhages. No headaches. PMH: HTN (hypertension) Hyperlipidemia Asthma Carotid occlusion, left Carotid stenosis, right TIA (transient ischemic attack) Personal history of tobacco use Lumbago PAD (peripheral artery disease) s/p R CEA 11/2009 H/o Aortofemoral bypass 09/25 groin injury Home Meds: Albuterol 90 mcg/Actuation Inhalation Aerosol Inhale 1-2 Puffs every four hours as need ed. aspirin 325 mg Oral Tablet Take 1 Tab by mouth once daily. atenolol 50 mg Oral Tablet Take 50 mg by mouth two times daily. ipratropium (ATROVENT HFA) 17 mcg/Actuation Inhalation HFA Aerosol Inhaler Inhale 2 Puf fs two times daily. simvastatin 20 mg Oral Tablet Take 20 mg by mouth once daily in the evening. traMADol 50 mg Oral Tablet, Rapid Dissolve Take by mouth. Allergies Allergen Reactions Tetracycline (Bulk) Vioxx (Rofecoxib) Social History: History Social History Marital Status: Single Spouse Name: N/A Number of Children: N/A Years of Education: N/A Occupational History Not on file. Social History Main Topics Smoking status: Current Everyday Smoker -- 1.5 packs/day for 41 years Types: Cigarettes Smokeless tobacco: Not on file Alcohol Use: 9.0 oz/week 18 drink(s) per week Drug Use: No Sexually Active: Not on file Other Topics Concern Not on file Social History Narrative No narrative on file Family History: no history of strokes Review of Systems: A complete review of systems was performed and is negative except as per HPI and that patie nt has occasional hot flashes PE: BP 138/62 | Pulse 69 | Wt 62.596 kg (138 lb) Constitutional: WD/WN, NAD Admission Weight: Weight: 62.596 kg (138 lb) (05/28/11 1538) Neurological: General: Normal activity, good hygiene, appropriate appearance. Level of consciousness: Awake, alert. Orientation: Oriented to person, place, time and situation. Concentration/Attention Span: Normal. Comprehension/Praxis: Able to perform a three step command. Neglect: Normal double simultaneous stimulation. Fund of Knowledge/memory: Adequate recent and remote recall. Language: Fluent and articulate without evidence of aphasia or dysarthria. -Comprehension: Intact -Repetition: Intact -Naming: Intact Mood/Affect: Appropriate/congruent. Thought Content: Normal, no auditory or visual hallucinations. Insight/Judgment: Normal. Cranial Nerves: I: Not tested II: PERRL 3mm to 2mm, visual puente full to confrontation bilaterally. III, IV, : Gaze conjugate, EOMI V: Sensation intact and symmetric to light touch V1-V3 VII: Symmetric facial motor function bilaterally VIII: Intact to finger rub bilaterally IX: Palate elevates symmetrically X: Normal cough XI: Normal shrug bilaterally XII: Tongue protrudes midline Motor: Normal tone. Normal bulk. No drift. 5/5 in all ext Sensation: Light touch: Intact and symmetric in the bilateral upper and lower extremities. Proprioception: Intact and symmetric in the bilateral upper and lower extremities. DTRs: Biceps Triceps Brachioradialis Knee Ankle Left 2+ 2+ 2+ 2+ 2+ Right 2+ 2+ 2+ 2+ 2+ Coordination: Finger to nose is of normal speed, no action tremor, and no end-point dysmetr ia Gait: The feet are spaced normally under shoulders width. HEENT: NC/AT, Neck Supple, Eyes: anicteric, Cardiovascular: S1 S2 RRR, No R/M/G +1 Radial/Pedal Pulses Respiratory: CTA B/L, GI: Soft, NT/ND NABS Musculoskeletal: Extremities: No c/c/e Skin: No rashes or significant breakdown Category Description Score 1a. Level of Consciousness [...] 2=Complete neglect 0 TOTAL SCORE: 0 Modified Chugach Scale Score (mRS): 0 IMAGING: CTA Head/neck from OSH: per wet read, occluded L ICA, R ICA patent, hypoplastic vs multiple areas of stenosis in vertebrobasilar system Diagnosis: Recurrent TIAs with limb shaking TIAs Assessment: Darcy Sun is a 56 y.o. female referred to the neurology service for evaluation of recurrent TIAs in setting of multiple vascular abnormalities. Patient's symptoms are lik dee 2/2 verebrobasilar insufficiency versus anterior circulation. It is difficult to disting uish based on history because patient has occluded L ICA and has steam tender so most of anter ior circulation is arising from R ICA, which is patent. Patient has areas of intracranial st enosis, and based on most recent SAMMPRIS study, maximum medical therapy is superior to intr acranial stenting. Patient therefore would likely benefit from maximum medical therapy that [facility] Plan: -Continue ASA 325mg PO Daily -Start Plavix 75mg PO Daily for 3 months -After taking plavix for 1 week, if tolerated, then start Pletal 100mg PO BID. I explained side effects and risks of hemorrhage associated with these medications to the patient -Smoking Cessation emphasized -Goal LDL <70 -Keep SBP<140, but avoid hypotension as this can cause hypoperfusion to the brain which can lead to watershed infarcts -If patient fails maximum medical therapy, then will recommend conventional diagnostic gil ogram -f/u in stroke clinic in 1 month Stroke education provided to patient including stroke warning signs, need to dial 911, risk factor reduction, stroke medications and F/U reviewed. This patient has been staffed with Dr. Bojorquez, attending physician, who agrees with the abov e assessment and plan. MARICHUY DEVLIN MD lMaurice kemp MD - 05/28/2011 3:52 PM PDT STROKE I saw and evaluated patient. I reviewed note HO and concur. Asked to evaluate patient for recurrent TIA events. In past month recent events of right le g weakness, next left leg weakness then 10/4 both legs weak with associated dysarthria. Rela tively little arm involvement. CTA upper extremity not head/neck But no apparent SCOTT stenosis. LICA is 100% occluded. Ba silar/verts appear small. A) R/O VBI. I suspect events are due to brainstem ischemic- Though bilateral ACAs are poss ible since both are being feed off of SCOTT now. In either case likely relative "misery perfu odug". We would try maximal medical therapy per below- If she still is having these TIAs t henwould obtain an angio to see if any appropriate vessel might be stented. Rec D/C smoking ASA And Plavix For 3 month LDL < 70 Let BP run 130-140s Trial Pletal 100 BID for "brain claudication" F/U stroke clinic one month Stroke education provided to patient including stroke warning signs, need to dial 911, risk factor reduction, stroke medications and F/U reviewed. documented in this encou nter Plan of Treatment +--------+ + + + + | Date | Type | Specialty | Care Team | Description | +--------+ + + + + | 06/17/ | Hospital | Adult Acute Care | Jarrod Barrett MD | | | 2019 | Encounter | | [address] | | | | | | [place], | | | | | | [place] [address] | | | | | | [phone] | | | | | | | [...] | + +--------+ + + + | RADIOLOGY | | 05/28/2011 | | Results for this | | | | 12:00 AM | | procedure are in the | | | | PDT | | results section. | + +--------+ + + + documented in this encounter Results RADIOLOGY (05/28/2011 12:00 AM PDT) + + + | Narrative | Performed At | + + + | | | + + + + + | Transcriptions | + + | Rory Fabian - 06/10/2011 7:19 PM PDT | + + documented in this encounter Visit Diagnoses + + | Diagnosis | + + | TIA (transient ischemic attack) - Primary Unspecified transient cerebral ischemia | + + documented in this encounter
--- OUTSIDE RECORDS SUMMARY | ~2019-07-18 | XMS | Encounter Summary ---
Demographics + + + | Address | [address] | | | [place] [address] | + + + | Home Phone | | + + + | Preferred Language | Unknown | + + + | Marital Status | | + + + | Denominational Affiliation | Unknown | + + + | Race | Unknown | + + + | Ethnic Group | Unknown | + + + Author + + + | Author | [facility] | | | and [place] | + + + | Organization | [facility] | | | and [place] | + + + | Address | Unknown | + + + | Phone | Unavailable | + + + Support + + +---------+ + | Name | Relationship | Address | Phone | + + +---------+ + | Danieleellen Tapia | ECON | Unknown | | + + +---------+ + | Verónica Lopez | ECON | Unknown | | + + +---------+ + Care Team Providers + +------+ + | Care Stockroom Selector Name | Role | Phone | + +------+ + | Litzy Castillo MD | PCP | | + +------+ + Reason for Visit + + + | Reason | Comments | + + + | Appointment | Telemedicine | + + + Encounter Details +--------+ + + + + | Date | Type | Department | Care Team | Description | +--------+ + + + + | 07/13/ | Telephone | [facility] | Deloris Seo | Appointment | | 2018 | | [facility] | TERRY Pacheco | (Telemedicine) | | | | [facility] [address] | | | | | | [address] [facility], | | | | | | [place] [address] | | | | | | [phone] | | | +--------+ + + + [...] [address] | | | | | | [place] [address] | | | | | | [phone] | | | | | | | | +--------+---------+ + + + documented as of this encounter Visit Diagnoses Not on filedocumented in this encounter"
--- OUTSIDE RECORDS SUMMARY | ~2019-07-18 | XMS | Encounter Summary ---
Demographics + + + | Address | [address] | | | [place] [address] | + + + | Home Phone [...] Team Providers + +------+ + | Care School Traffic Supervisor Name | Role | Phone | + [...] | | | CENTER [address] | [facility] | | | | | [address] [place], [place] | [place] [address] | | | | | [address] | [phone] | | | | | [phone] | | | +--------+ + + + [...] [place] | | | | | | [place] [address] | | | | | | [phone] | | | | | | | | +--------+---------+ + + + documented as of this encounter Visit Diagnoses Not on filedocumented in this encounter"
--- OUTSIDE RECORDS SUMMARY | ~2019-07-18 | XMS | Encounter Summary ---
Demographics + + + | Address | [address] | | | [place] [address] | + + + | Home Phone | | + + + | Preferred Language | Unknown | + + + | Marital Status | Single | + + + | Episcopalian Affiliation | NON | + + + [...] Team Providers + +------+ + | Care Director Of Materials Name | Role | Phone | + [...] | | | | | | | [address] | | | | | | | [address] | | | | | | | [id number] | | | | | | | [facility] | | | | | | | Hospital | | | | | | | [place], [place] | | | | | | | [address] | | | | | | | Phone: | | | | | | | [phone] | | | | | | | Fax: | | | | | | | [phone] | +--------+--------+ + + + + Encounter Details +--------+ + + + + | Date | Type | Department | Care Team | Description | +--------+ + + + + | 11/15/ | Emergency | [facility] Emergency | | | | 2009 - | | Department [address] | | | | 11/16/ | | [facility] Hospital | | | | 2009 | | [place], [place] | | | | | | [address] | | | | | | [phone] | | | +--------+ + + + [...] | | | | | | [place] [address] | | | | | | [phone] | | | | | | | | +--------+ + + + + | 06/18/ | Procedure | Surgery | | | | 2019 | Pass | | | | +--------+ + + + + documented as of this encounter Visit Diagnoses Not on filedocumented in this encounter"
--- OUTSIDE RECORDS SUMMARY | ~2019-07-18 | XMS | Encounter Summary ---
Demographics + + + | Address | [address] | | | [place] [address] | + + + | Home Phone | | + + + | Preferred Language | Unknown | + + + | Marital Status | Single | + + + | Gnosticist Affiliation | NON | + + + | Race | White | + + + | Ethnic Group | Not or | + + + Author + + + | Author | [facility] | + + + | Organization | [facility] | + + + | [...] Providers + +------+ + | Care Crop Consultant Name | Role | Phone | + +------+ + | Litzy Castillo MD | PCP | | + +------+ + Encounter Details +--------+ + + + + | Date | Type | Department | Care Team | Description | +--------+ + + + + | 03/14/ | Hospital | Radiology/Imaging | Jarrod Barrett MD | Canceled (Scheduling | | 2019 | Encounter | Lab at [facility] [address] | [address] | error) | | | | [place]y Mailcode: | [place], | | | | | [facility] | [place] [address] | | | | | [facility], | [phone] | | | | | [address] | | | | | | Floor [place], [place] | | | | | | [address] | | | | | | [phone] | | | +--------+ + + + [...] + + + +---------+ + + | | Take 1-2 tablets by | 50 | 0 | 05// | | | HYDROcodone-acetamin | mouth every six | tablet | | 19 | | | ophen (NORCO) 5-325 | hours as needed for | | | | | | mg oral tablet | moderate pain or | | | | | | | severe pain. Not to | | | | | | | exceed 6 in 24 | | | | | | | hours/ n | | | | | + + [...] + + + +---------+ + + | ondansetron ODT 4 | Dissolve 1 tablet on | 20 | 1 | 12/23/19 | | | mg oral | tongue and swallow | tablet | | 19 | | | tablet,disintegratin | every eight hours as | | | | | | g | needed for | | | | | | | nausea/vomiting. | | | | | + + + +---------+ + + | ondansetron ODT 4 | Dissolve 1 tablet on | 20 | 0 | 12/18/19 | | | mg oral | tongue and swallow | tablet | | 19 | | | tablet,disintegratin | every eight hours as | | | | | | g | needed for | | | | | | | nausea/vomiting. | | | | | + + + +---------+ + + | oxyCODONE | Take 1-2 tablets by | 60 | 0 | 12/17/19 | | | (immediate release) | mouth every four | tablet | | 19 | | | 5 mg oral tablet | hours as needed for | | | | | | | breakthrough pain. | | | | | + + + +---------+ + + | rosuvastatin 40 mg | | | 0 | 03/07/20 | | | oral tablet | | | | 19 | | + + + +---------+ + [...] | | | | | [place], | | | | | | [place] [address] | | | | | | [phone] | | | | | | | | +--------+ + + + + | 06/18/ | Procedure | Surgery | | | | 2020 | Pass | | | | +--------+ + + + + documented as of this encounter Visit Diagnoses + + | Diagnosis | + + | S/P lumbar laminectomy | + + documented in this encounter"
--- OUTSIDE RECORDS SUMMARY | ~2019-07-18 | XMS | Encounter Summary ---
Demographics + + + | Address | [address] | | | [place] [address] | + + + | Home Phone [...] Team Providers + +------+ + | Care Fabrication Operator Name | Role | Phone | + +------+ + | Litzy Castillo MD | PCP | | + +------+ + Encounter Details +--------+ + + + + | Date | Type | Department | Care Team | Description | +--------+ + + + + | 08/28/ | Hospital | [facility] | Conversion | Pain | | 2019 | Encounter | [address]VERSION [address] | Transaction, | | | | [address] | Provider Unknown | | | | | [place], [place] | [phone] | | | | | [address] | | | | | | [phone] | | | +--------+ + + + [...] [place] | | | | | | [place] [address] | | | | | | [phone] | | | | | | | | +--------+---------+ + + + documented as of this encounter Procedures + +--------+ + + + | Procedure Name | Priori | Date/Time | Associated Diagnosis | Comments | | | ty | | | | + +--------+ + + + | XR CHEST 2 VIEWS | Routin | 04/26/2014 | | Results for this | | | e | 5:05 AM | | procedure are in the | | | | PDT | | results section. | + +--------+ + + + documented in this encounter Results XR Chest 2 Vws (04/26/2014 5:05 AM PDT) + + | Specimen | [...]
--- OUTSIDE RECORDS SUMMARY | ~2019-07-18 | XMS | Encounter Summary ---
Demographics + + + | Address | [address] | | | [place] [address] | + + + | Home Phone [...] + | Author | [facility] | | | and [place] | + + + | Organization | [facility] | | | [...] Team Providers + +------+ + | Care Retirement Officer Name | Role | Phone | + +------+ + | Litzy Castillo MD | PCP | | + +------+ + Encounter Details +--------+ + + + + | Date | Type | Department | Care Team | Description | +--------+ + + + + | 08/27/ | Hospital | [facility] | Conversion | Diagnosis unknown | | 2019 | Encounter | [address]VERSION [address] | Transaction, | | | | [address] | Provider Unknown | | | | | [place], [place] | [phone] | | | | | [address] | | | | | | [phone] | | | +--------+ + + + [...] [address] | | | | | | [place] [address] | | | | | | [phone] | | | | | | | [...]
--- OUTSIDE RECORDS SUMMARY | ~2019-07-18 | XMS | Encounter Summary ---
Demographics + + + | Address | [address] | | | [place] [address] | + + + | Home Phone [...] | | + + +---------+ + | Jaard Abebe | ECON | Unknown | | + + +---------+ + | Daniele Whitten | ECON | Unknown | | + + +---------+ + Care Team Providers + +------+ + | Care Wind Turbine Service Technician Name | Role | Phone | + +------+ + | Heide Bhatti | PCP | | + +------+ + Encounter Details +--------+---------+ + + + | Date | Type | Department | Care Team | Description | +--------+---------+ + + + | 05/28/ | Office | [facility] | Iván, | TIA (transient | | 2010 | Visit | [facility] | MD Marichuy | ischemic attack) | | | [facility] | | (Primary Dx) | | | | [address] | | | | | | [place] Mailcode: | | | | | | [address] [place] | | | | | | [facility] | | | | | | floor [place], [place] | | | | | | [address] | | | | | | [phone] | | | +--------+---------+ + + + [...] 2=Complete neglect 0 TOTAL SCORE: 0 Modified [place] Scale Score (mRS): 0 IMAGING: CTA Head/neck [...] patient has occluded L ICA and has cooler man so most of anter ior circulation is arising from R ICA, which is patent. Patient has areas of intracranial st enosis, and based on most recent SAMMPRIS study, maximum medical therapy is superior to intr acranial stenting. 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 We would try maximal medical therapy per [...] | | | | | [place], | | | | | | [place] [address] | | | | | | [phone] | | | | | | | [...]
--- OUTSIDE RECORDS SUMMARY | ~2019-07-18 | XMS | Encounter Summary ---
Demographics + + + | Address | [address] | | | [place] [address] | + + + | Home Phone | | + + + | Preferred Language | Unknown | + + + | Marital Status | | + + + | Orthodox Affiliation | Unknown | + + + | Race | Unknown | + + + | Ethnic Group | Unknown | + + + Author + + + | Author | [facility] | | | and [place] | + + + | Organization | [facility] | | | [...] Team Providers + +------+ + | Care Air Defence Officer Name | Role | Phone | + +------+ + PCP | Unavailable | + +------+ + Encounter Details +--------+ + + + + | Date | Type | Department | Care Team | Description | +--------+ + + + + | 04/10/ | Hospital | [facility] | Lauro[place]Anshul, | | | 2011 | Encounter | HOSPITAL MED SURG | Nicole Colon MD | | | | | [address] | [address] [facility] | | | | | [place], [place] | Way [facility], | | | | | [address] | [place] [address] | | | | | [phone] | [phone] | | | | | | | [...] Nicole Burgess MD - 04/10/2012 1:30 AM [facility] Dictating Practitioner: NICOLE LOBO MD Patient Name: DARCY ALVARADO Patient Date of : 1955 Visit Number: [id number] DISCHARGE SUMMARY DATE OF DISCHARGE: 04/10/2012. DISCHARGE [...] home medications. cc: CECELIA Martinez [id number] / [id number] Dictation Date/Time: April 10, 2012 11:57AM Movie Actor Date/Time: April 12, 2012 06:27AM Authenticated and [...] [place] | | | | | | [place] [address] | | | | | | [phone] | | | | | | | | +--------+---------+ + + + documented as of this encounter Visit Diagnoses Not on filedocumented in this encounter"
--- OUTSIDE RECORDS SUMMARY | ~2019-07-18 | XMS | Encounter Summary ---
Demographics + + + | Address | [address] | | | [place] [address] | + + + | Home Phone | | + + + | Preferred Language | Unknown | + + + | Marital Status | | + + + | Yazdanism Affiliation | Unknown | + + + | Race | Unknown | + + + | Ethnic Group | Unknown | + + + Author + + + | Author | [facility] | | | and [place] | + + + | Organization | [facility] | | | [...] Team Providers + +------+ + | Care Choir Director Name | Role | Phone | + +------+ + | Litzy Castillo MD | PCP | | + +------+ + Encounter Details +--------+ + + + + | Date | Type | Department | Care Team | Description | +--------+ + + + + | 08/28/ | Hospital | [facility] | Conversion | Pain | | 2019 | Encounter | CONVERSION [address] | Transaction, | | | | [address] | Provider Unknown | | | | | [place], [place] | [phone] | | | | | [address] | | | | | | [phone] | | | +--------+ + + + [...] MARCAN[address] | | | | | | [place] [address] | | | | | | [phone] | | | | | | | [...]
--- OUTSIDE RECORDS SUMMARY | ~2019-07-18 | XMS | Clinical Summary ---
Demographics + + + | Address | [address] | | | [place] [address] | + + + | Home Phone | | + + + | Preferred Language | Unknown | + + + | Marital Status | Single | + + + | Yazdanism Affiliation | Unknown | + + + | Race | Unknown | + + + | Ethnic Group | Unknown | + + + Author + + + | Author | [email or web address] (Historical as of | | | 04-09-19) | + + + | Organization | [facility] (Historical as of | | | 04-09-19) [...] Team Providers + +------+ + | Care Station Installer And Repairer Name | Role | Phone | + [...] +------+-------+ + | MEDICARE | MEDICA | [id number] | | | [address] | | | RE | | | | [place] [address] | | | IP-OP | | | | | + +--------+ +------+-------+ + | - WPS - | TRICAR | [id number] | | | [address] [address] | | | E FOR | | | | [place] | | | LIFE | | | | [address] | + +--------+ +------+-------+ + | MEDICAID | MEDICA | [id number] | | | [address] | | | ID | | | | [place], [place] | | | [place] | | | | [address] | + +--------+ +------+-------+ + + +--------+ [...] | | | roseanna | | | [address] | [place] [address] | + +--------+ +--------+ + +"
--- OUTSIDE RECORDS SUMMARY | ~2019-07-18 | XMS | Encounter Summary ---
Demographics + + + | Address | [address] | | | [place] [address] | + + + | Home Phone | | + + + | Preferred Language | Unknown | + + + | Marital Status | | + + + | Adventist Affiliation | Unknown | + + + | Race | Unknown | + + + | Ethnic Group | Unknown | + + + Author + + + | Author | [facility] | | | and [place] | + + + | Organization | [facility] | | | [...] Providers + +------+ + | Care Power Nut Runner Operator Name | Role | Phone | + +------+ + PCP | Unavailable | + +------+ + Encounter Details +--------+ + + + + | Date | Type | Department | Care Team | Description | +--------+ + + + + | 05/27/ | Hospital | [facility] | Yahir Hernandez | | | 2010 | Encounter | HOSPITAL EMERGENCY | MD [address] | | | | | [address] | [place] | | | | | [place] | [address] | | | | | [address] | [phone] | | | | | [phone] | | | +--------+ + + + [...] | | | | | [place] [address] | | | | | | [phone] | | | | | | | | +--------+---------+ + + + documented as of this encounter Visit Diagnoses Not on filedocumented in this encounter"
--- OUTSIDE RECORDS SUMMARY | ~2019-07-18 | XMS | Encounter Summary ---
Demographics + + + | Address | [address] | | | [place] [address] | + + + | Home Phone | | + + + | Preferred Language | Unknown | + + + | Marital Status | Single | + + + | Latter Day Affiliation | NON | + + + [...] Team Providers + +------+ + | Care Credit And Collections Analyst Name | Role | Phone | [...] | | evaluation | | | | [facility] | | | | | | [address] | | | | | | Mail Code: OC8PM | | | | | | [facility] | | | | | | and Healing, | | | | | | [address] | | | | | | [place], [place] | | | | | | [address] | | | | | | [phone] | | | +--------+ + + + [...] perfume, lotions or powder. Remove any nail swedish from at least one fingernail. Do not [...] your procedure. Surgery Check in Locations Admitting [facility] Surgery Check in Time: Someone from your surgeon's office or [facility] will provide you with information [...] it is after office hours, call the [facility] regeneration operator at [phone] and ask them to page your doc [...] | | | | | [place], | | | | | | [place] [address] | | | | | | [phone] | | | | | | | | +--------+ + + + + | 06/18/ | Procedure | Surgery | | | | 2019 | Pass | | | | +--------+ + + + + documented as of this encounter Visit Diagnoses Not on filedocumented in this encounter"
--- OUTSIDE RECORDS SUMMARY | ~2019-07-18 | XMS | Encounter Summary ---
Demographics + + + | Address | [address] | | | [place] [address] | + + + | Home Phone | | + + + | Preferred Language | Unknown | + + + | Marital Status | | + + + | Orthodoxy Affiliation | Unknown | + + + | Race | Unknown | + + + | Ethnic Group | Unknown | + + + Author + + + | Author | [facility] | | | and [place] | + + + | Organization | [facility] | | | [...] Team Providers + +------+ + | Care Coremaker Floor Name | Role | Phone | + +------+ + PCP | Unavailable | + +------+ + Encounter Details +--------+ + + + + | Date | Type | Department | Care Team | Description | +--------+ + + + + | 03/20/ | Hospital | [facility] | Christoph Lipscomb | | | 2011 | Encounter | HOSPITAL EMERGENCY | MD [address] | | | | | CENTER [address] | [place] | | | | | [address] [place] | [place] [address] | | | | | [address] | [phone] | | | | | [phone] | | | +--------+ + + + [...] | | | | | [place] [address] | | | | | | [phone] | | | | | | | | +--------+---------+ + + + documented as of this encounter Visit Diagnoses Not on filedocumented in this encounter"
--- OUTSIDE RECORDS SUMMARY | ~2019-07-18 | XMS | Encounter Summary ---
Demographics + + + | Address | [address] | | | [place] [address] | + + + | Home Phone | | + + + | Preferred Language | Unknown | + + + | Marital Status | Single | + + + | Congregation Affiliation | NON | + + + [...] Team Providers + +------+ + | Care Step Down Specialist Name | Role | Phone | + [...] Pharmacy | | | | | | [address] | | | | | | [place], | | | | | | [place] [address] | | | | | | [phone] | | | +--------+ + + + [...] 2019 | Encounter | | [address] | | | | | | [place], | | | | | | [place] [address] | | | | | | [phone] | | | | | | | | +--------+ + + + + | 06/18/ | Procedure | Surgery | | | | 2020 | Pass | | | | +--------+ + + + + documented as of this encounter Visit Diagnoses Not on filedocumented in this encounter"
--- OUTSIDE RECORDS SUMMARY | ~2019-07-18 | XMS | Encounter Summary ---
Demographics + + + | Address | [address] | | | [place] [address] | + + + | Home Phone | | + + + | Preferred Language | Unknown | + + + | Marital Status | | + + + | Oriental Orthodox Affiliation | Unknown | + + + | Race | Unknown | + + + | Ethnic Group | Unknown | + + + Author + + + | Author | [facility] | | | and [place] | + + + | Organization | [facility] | | [...] Team Providers + +------+ + | Care Reverse Engineer Name | Role | Phone | + +------+ + | Litzy Castillo MD | PCP | | + +------+ + Encounter Details +--------+ + + + + | Date | Type | Department | Care Team | Description | +--------+ + + + + | 08/28/ | Hospital | [facility] | Conversion | Pain | | 2019 | Encounter | [address]VERSION [address] | Transaction, | | | | | [address] | Provider Unknown | | | | | [place], [place] | [phone] | | | | | [address] | | | | | | [phone] | | | +--------+ + + + [...] MARC[place] | | | | | | [place] [address] | | | | | | [phone] | | | | | | | [...]
--- OUTSIDE RECORDS SUMMARY | ~2019-07-18 | XMS | Encounter Summary ---
Demographics + + + | Address | [address] | | | [place] [address] | + + + | Home Phone [...] Author + + + | Author | [facility] | + + + | Organization | [facility] | + + + | [...] Team Providers + +------+ + | Care Train Examiner Name | Role | Phone | + +------+ + | Litzy Castillo MD | PCP | | + +------+ + Encounter Details +--------+ + + + + | Date | Type | Department | Care Team | Description | +--------+ + + + + | 06/17/ | Anesthesia | Preoperative | Irina Green | | | 2018 | Event | [facility] | S, CUT OFF SAW OPERATOR PIPE BLANKS [address] | | | | | [facility] | [facility] | | | | | [address] | [place], [place] | | | | | Mail Code: OC8PM | [address] | | | | | [facility] | [phone] | | | | | and Healing, | | | | | | [address] | | | | | | [place], [place] | | | | | | [address] | | | | | | [phone] | | | +--------+ + + + [...] | | | | | [place], | | | | | | [place] [address] | | | | | | [phone] | | | | | | | | +--------+ + + + + | 06/18/ | Procedure | Surgery | | | | 2019 | Pass | | | | +--------+ + + + + documented as of this encounter Visit Diagnoses Not on filedocumented in this encounter"
--- OUTSIDE RECORDS SUMMARY | ~2019-07-18 | XMS | Encounter Summary ---
Demographics + + + | Address | [address] | | | [place] [address] | + + + | Home Phone | | + + + | Preferred Language | Unknown | + + + | Marital Status | Single | + + + | Caodaism Affiliation | NON | + + + | Race | White | + + + | Ethnic Group | Not or | + + + Author + + + | Author | [facility] | + + + | Organization | [facility] | + + [...] Team Providers + +------+ + | Care Eyeglass Frame Truer Name | Role | Phone | + [...] [address] | | | | | [place], [place] | Rd [place], [place] | | | | | [address] | [address] | | | | | | [phone] | | +--------+ + + + + [...] | | | | | [place], | | | | | | [place] [address] | | | | | | [phone] | | | | | | | | +--------+ + + + + | 06/18/ | Procedure | Surgery | | | | 2020 | Pass | | | | +--------+ + + + + documented as of this encounter Visit Diagnoses Not on filedocumented in this encounter"
--- OUTSIDE RECORDS SUMMARY | ~2019-07-18 | XMS | Encounter Summary ---
Demographics + + + | Address | [address] | | | [place] [address] | + + + | Home Phone | | + + + | Preferred Language | Unknown | + + + | Marital Status | Single | + + + | Uatsdin Affiliation | NON | + + + [...] | + + +---------+ + | Jarad bAebe | ECON | Unknown | | + + +---------+ + | Daniele Whitten | ECON | Unknown | | + + +---------+ + Care Team Providers + +------+ + | Care Picture Engraver Name | Role | Phone | + +------+ + | Litzy Castillo MD | PCP | | + +------+ + Encounter Details +--------+ + + + + | Date | Type | Department | Care Team | Description | +--------+ + + + + | 12/20/ | Pharmacy | Outpatient Retail | | | | 2018 | Visit | [facility] | | | | | | [address] | | | | | | [place], | | | | | | [place] [address] | | | | | | [phone] | | | +--------+ + + + [...] | | | | | [place], | | | | | | [place] [address] | | | | | | [phone] | | | | | | | | +--------+ + + + + | 06/18/ | Procedure | Surgery | | | | 2020 | Pass | | | | +--------+ + + + + documented as of this encounter Visit Diagnoses Not on filedocumented in this encounter"
--- OUTSIDE RECORDS SUMMARY | ~2019-07-18 | XMS | Encounter Summary ---
Demographics + + + | Address | [address] | | | [place] [address] | + + + | Home Phone | | + + + | Preferred Language | Unknown | + + + | Marital Status | Single | + + + | Worship Affiliation | NON | + + + [...] Team Providers + +------+ + | Care Wood Floor Refinisher Name | Role | Phone | + +------+ + | Litzy Castlilo MD | PCP | | + +------+ + Reason for Visit + + + | Reason | Comments | + + + | Referral | | + + + Encounter Details +--------+ + + + + | Date | Type | Department | Care Team | Description | +--------+ + + + + | 07/19/ | Telephone | [place] [facility] | Iván, | Referral | | 2017 | | [facility] [place] | MD Marichuy [address] | | | | | [facility] | [address] | | | | | [address] | [place], [place] | | | | | [place] Mailcode: | [address] | | | | | [address] [place] | [phone] | | | | | [facility] | | | | | | [place], [place] | | | | | | [address] | | | | | | [phone] | | | +--------+ + + + [...] | | | | | [place], | | | | | | [place] [address] | | | | | | [phone] | | | | | | | | +--------+ + + + + | 06/18/ | Procedure | Surgery | | | | 2019 | Pass | | | | +--------+ + + + + documented as of this encounter Visit Diagnoses Not on filedocumented in this encounter"
--- OUTSIDE RECORDS SUMMARY | ~2019-07-18 | XMS | Encounter Summary ---
Demographics + + + | Address | [address] | | | [place] [address] | + + + | Home Phone | | + + + | Preferred Language | Unknown | + + + | Marital Status | | + + + | Rastafarian Affiliation | Unknown | + + + | Race | Unknown | + + + | Ethnic Group | Unknown | + + + Author + + + | Author | [facility] | | | and [place] | + + + | Organization | [facility] | | | [...] Team Providers + +------+ + | Care Front Desk Clerk Name | Role | Phone | [...] [address] | | | | [place], | [place], | | | | | [place] [address] | [place] [address] | | | | | [phone] | [phone] | | | | | | | [...] [place]ARC[place] | | | | | | [place] [address] | | | | | | [phone] | | | | | | | | +--------+---------+ + + + documented as of this encounter Visit Diagnoses Not on filedocumented in this encounter"
--- OUTSIDE RECORDS SUMMARY | ~2019-07-18 | XMS | Encounter Summary ---
Demographics + + + | Address | [address] | | | [place] [address] | + + + | Home Phone [...] Team Providers + +------+ + | Care Varitypist Name | Role | Phone | + +------+ + | Heide Bhatti | PCP | | + +------+ + Reason for Visit +--------+ + | Reason | Comments | +--------+ + | Other | | +--------+ + Encounter Details +--------+ + + + + | Date | Type | Department | Care Team | Description | +--------+ + + + + | 09/22/ | Telephone | [place] [facility] | Iván, | | | 2011 | | [facility] [place] | MD Marichuy | | | | | [facility] | | | | | | [address] | | | | | | [place] Mailcode: | | | | | | [address] [place] | | | | | | [facility] | | | | | | floor [place], [place] | | | | | | [address] | | | | | | [phone] | | | +--------+ + + + [...] | | | | | [place], | | | | | | [place] [address] | | | | | | [phone] | | | | | | | | +--------+ + + + + | 06/18/ | Procedure | Surgery | | | | 2020 | Pass | | | | +--------+ + + + + documented as of this encounter Visit Diagnoses Not on filedocumented in this encounter"
--- OUTSIDE RECORDS SUMMARY | ~2019-07-18 | XMS | Encounter Summary ---
Demographics + + + | Address | [address] | | | [place] [address] | + + + | Home Phone | | + + + | Preferred Language | Unknown | + + + | Marital Status | | + + + | Caodaism Affiliation | Unknown | + + + | Race | Unknown | + + + | Ethnic Group | Unknown | + + + Author + + + | Author | [facility] | | | and [place] | + + + | Organization | [facility] | | | [...] Team Providers + +------+ + | Care Public Health Representative Name | Role | Phone | [...] + | 05/20/ | Telephone | [facility] | Melany Paez, | Other (Referral) | | 2011 | | SURGERY [address] | RN | | | | | [place], [place] | | | | | | [address] | | | | | | [phone] | | | +--------+ + + + [...] | | | | | [place] [address] | | | | | | [phone] | | | | | | | | +--------+---------+ + + + documented as of this encounter Visit Diagnoses Not on filedocumented in this encounter"
--- OUTSIDE RECORDS SUMMARY | ~2019-07-18 | XMS | Encounter Summary ---
Demographics + + + | Address | [address] | | | [place] [address] | + + + | Home Phone | | + + + | Preferred Language | Unknown | + + + | Marital Status | Single | + + + | Oriental Orthodox Affiliation | NON | + + + | Race | White | + + + | Ethnic Group | Not or | + + + Author + + + | Author | [facility] | + + + | Organization | [facility] | + + + | Address | [...] Team Providers + +------+ + | Care Assurance Manager Insurance Name | Role | Phone | + [...] Treatment Planning | | 2018 | | [facility] [address] | [place] | | | | | [place] Mailcode: | [address] | | | | | [facility] | [place], [place] | | | | | [place], | [address] | | | | | [place] [address] | [phone] | | | | | [place], [place] | | | | | | [address] | | | | | | [phone] | | | +--------+ + + + [...] | | | | | [place], | | | | | | [place] [address] | | | | | | [phone] | | | | | | | | +--------+ + + + + | 06/18/ | Procedure | Surgery | | | | 2019 | Pass | | | | +--------+ + + + + documented as of this encounter Visit Diagnoses Not on filedocumented in this encounter"
--- OUTSIDE RECORDS SUMMARY | ~2019-07-18 | XMS | Encounter Summary ---
Demographics + + + | Address | [address] | | | [place] [address] | + + + | Home Phone | | + + + | Preferred Language | Unknown | + + + | Marital Status | | + + + | Lutheran Affiliation | Unknown | + + + | Race | Unknown | + + + | Ethnic Group | Unknown | + + + Author + + + | Author | [facility] | | | and [place] | + + + | Organization | [facility] | | | [...] Team Providers + +------+ + | Care Mva Reactor Operator Name | Role | Phone | + +------+ + | Litzy Castillo MD | PCP | | + +------+ + Encounter Details +--------+ + + + + | Date | Type | Department | Care Team | Description | +--------+ + + + + | 08/27/ | Hospital | [facility] | Conversion | Diagnosis unknown | | 2019 | Encounter | CONVERSION [address] | Transaction, | | | | [address] | Provider Unknown | | | | | [place], [place] | [phone] | | | | | [address] | | | | | | [phone] | | | +--------+ + + + [...] MARCAN[place] | | | | | | [place] [address] | | | | | | [phone] | | | | | | | | +--------+---------+ + + + documented as of this encounter Procedures + +--------+ + + + | Procedure Name | Priori | Date/Time | Associated Diagnosis | Comments | | | ty | | | | + +--------+ + + + | MRI LUMBAR SPINE WO | Routin | 08/18/2018 | | Results for this | | CONTRAST | e | 5:26 PM | | procedure are in the | | | | PST | | results section. | + +--------+ + + + documented in this encounter Results MRI Lumbar Spine wo Contrast (08/18/2018 5:26 PM PST) + + | Specimen | [...]
--- OUTSIDE RECORDS SUMMARY | ~2019-07-18 | XMS | Encounter Summary ---
Demographics + + + | Address | [address] | | | [place] [address] | + + + | Home Phone | | + + + | Preferred Language | Unknown | + + + | Marital Status | Single | + + + | Mu-Ism Affiliation | NON | + + + | Race | White | + + + | Ethnic Group | Not or | + + + Author + + + | Author | [facility] | + + + | Organization | [facility] | + + + | Address [...] Team Providers + +------+ + | Care Wire Transfer Clerk Name | Role | Phone | [...] + + | 09/22/ | Telephone | [place] [facility] | Iván, | | | 2011 | | [facility] | MD Marichuy | | | | | [facility] | | | | | | [address] | | | | | | [place] Mailcode: | | | | | | [address] | | | | | | [facility] | | | | | | floor [place], [place] | | | | | | [address] | | | | | | [phone] | | | +--------+ + + + [...] | | | | | [place], | | | | | | [place] [address] | | | | | | [phone] | | | | | | | | +--------+ + + + + | 06/18/ | Procedure | Surgery | | | | 2020 | Pass | | | | +--------+ + + + + documented as of this encounter Visit Diagnoses Not on filedocumented in this encounter"
--- OUTSIDE RECORDS SUMMARY | ~2019-07-18 | XMS | Encounter Summary ---
Demographics + + + | Address | [address] | | | [place] [address] | + + + | Home Phone [...] + | Author | [facility] | | | and [place] | + + + | Organization | [facility] | | | and [...] Providers + +------+ + | Care Supervisor Dental Laboratory Name | Role | Phone | + +------+ + | Litzy Castillo MD | PCP | | + +------+ + Encounter Details +--------+ + + + + | Date | Type | Department | Care Team | Description | +--------+ + + + + | 08/28/ | Hospital | [facility] | Conversion | Pain | | 2019 | Encounter | [address]VERSION [address] | Transaction, | | | | [address] | Provider Unknown | | | | | [place], [place] | [phone] | | | | | [address] | | | | | | [phone] | | | +--------+ + + + [...] MARCAN[place] | | | | | | [place] [address] | | | | | | [phone] | | | | | | | [...]
--- OUTSIDE RECORDS SUMMARY | ~2019-07-18 | XMS | Encounter Summary ---
Demographics + + + | Address | [address] | | | [place] [address] | + + + | Home Phone | | + + + | Preferred Language | Unknown | + + + | Marital Status | | + + + | Episcopal Affiliation | Unknown | + + + | Race | Unknown | + + + | Ethnic Group | Unknown | + + + Author + + + | Author | [facility] | | | and [place] | + + + | Organization | [facility] | | [...] Team Providers + +------+ + | Care Edge Kitter Name | Role | Phone | + [...] Provider Unknown | | | | | [place], [place] | [phone] | | | | | [address] | | | | | | [phone] | | | +--------+ + + + [...] MARCANO | | | | | | [place] [address] | | | | | | [phone] | | | | | | | [...]
--- OUTSIDE RECORDS SUMMARY | ~2019-07-18 | XMS | Encounter Summary ---
Demographics + + + | Address | [address] | | | [place] [address] | + + + | Home Phone [...] Author + + + | Author | [facility] | + + + | Organization | [facility] | + + + | Address [...] Team Providers + +------+ + | Care Lithographic Etcher Name | Role | Phone | + [...] | | evaluation | | | | [facility] | | | | | | [address] | | | | | | Mail Code: OC8PM | | | | | | [facility] | | | | | | and Healing, | | | | | | [address] | | | | | | [place], [place] | | | | | | [address] | | | | | | [phone] | | | +--------+ + + + [...] perfume, lotions or powder. Remove any nail romansh from at least one fingernail. Do not [...] your procedure. Surgery Check in Locations Admitting [facility] Surgery Check in Time: Someone from your surgeon's office or [facility] will provide you with information regarding your [...] it is after office hours, call the [facility] deburring and tooling machine operator at [phone] and ask them to page your doc [...] | | | | | [place], | | | | | | [place] [address] | | | | | | [phone] | | | | | | | | +--------+ + + + + | 06/18/ | Procedure | Surgery | | | | 2019 | Pass | | | | +--------+ + + + + documented as of this encounter Visit Diagnoses Not on filedocumented in this encounter"
--- OUTSIDE RECORDS SUMMARY | ~2019-07-18 | XMS | Encounter Summary ---
Demographics + + + | Address | [address] | | | [place] [address] | + + + | Home Phone [...] + + + | Author | [facility] | + + + | Organization | [facility] | + + + | Address [...] Team Providers + +------+ + | Care Ribbon Lap Machine Tender Name | Role | Phone | [...] | | | TIA | Rosa Isela Pato, | Hrc [address] | | | | | (transient | [place] [address] | [address] | | | | | ischemic | [address] | [address] | | | | | attack) S/P | [place], [place] | Mailcode: | | | | | carotid | [address] | [address] | | | | | endarterecto | Phone: | Etta | | | | | | [phone] | Research | | | | | Cerebrovascu | Fax: | [place] [address] | | | | | lar accident | [phone] | floor | | | | | (CVA), | | [place], [place] | | | | | unspecified | | [address] | | | | | mechanism | | Phone: | | | | | (HCC) | | [phone] | | | | | Procedures | | Fax: | | | | | CONSULT TO | | [phone] | | | | | NEUROLOGY | | | + +--------+ + + + + Reason for Visit + + + | Reason | Comments | + + + | Referral to | | | neurology service | | + + + Encounter Details +--------+ + + + + | Date | Type | Department | Care Team | Description | +--------+ + + + + | 07/12/ | Telephone | Sp[facility] Center at | Jarrod Barrett MD | Referral to | | 2018 | | [facility] [address] | [address] | neurology service | | | | [place] Mailcode: | [place] [address] [place], | | | | | [facility] | [place] [address] | | | | | and Aamir, | [phone] | | | | | [place] [address] | | | | | | [place], [place] | | | | | | [address] | | | | | | [phone] | | | +--------+ + + + [...] | | | | | [place], | | | | | | [place] [address] | | | | | | [phone] | | | | | | | [...] transient cerebral ischemia | + + | S/P carotid endarterectomy Other postprocedural status | + + | Cerebrovascular accident (CVA), unspecified mechanism (HCC) | + + documented in this encounter"
--- OUTSIDE RECORDS SUMMARY | ~2019-07-18 | XMS | Encounter Summary ---
Demographics + + + | Address | [address] | | | [place] [address] | + + + | Home Phone [...] Author + + + | Author | [facility] | + + + | Organization | [facility] | + + + | Address [...] Team Providers + +------+ + | Care [place] Leverman Name | Role | Phone | + +------+ + | Heide Bhatti | PCP | | + +------+ + Encounter Details +--------+ + + + + | Date | Type | Department | Care Team | Description | +--------+ + + + + | 01/05/ | Automobile Body Repair Chief | Vascular Surgery | Kaveh Izaguirre MD | | | 2011 | | at [facility] 2nd Floor | [address] | | | | | [address] | [address] [place], | | | | | [address] Mailcode: | [place] [address] | | | | | [address] Physician's | [phone] | | | | | [place], | | | | | | [place] [address] | | | | | | [phone] | | | +--------+ + + + [...] | | | | | [place] [address] [place], | | | | | | [place] [address] | | | | | | [phone] | | | | | | | | +--------+ + + + + | 06/18/ | Procedure | Surgery | | | | 2020 | Pass | | | | +--------+ + + + + documented as of this encounter Visit Diagnoses Not on filedocumented in this encounter"
--- OUTSIDE RECORDS SUMMARY | ~2019-07-18 | XMS | Encounter Summary ---
Demographics + + + | Address | [address] | | | [place] [address] | + + + | Home Phone | | + + + | Preferred Language | Unknown | + + + | Marital Status | Single | + + + | Islam Affiliation | NON | + + + [...] Team Providers + +------+ + | Care Subway Guard Name | Role | Phone | + [...] | Encounter | Lab at [facility] [address] | [address] | error) | | | | [address] [address] Mailcode: | [place] [address] [place], | | | | | LETHA [facility] | [place] [address] | | | | | [facility], | [phone] | | | | | [address] | | | | | | Floor [place], [place] | | | | | | [address] | | | | | | [phone] | | | +--------+ + + + [...] | | | | | [address] [place], | | | | | | [place] [address] | | | | | | [phone] | | | | | | | [...]
--- OUTSIDE RECORDS SUMMARY | ~2019-07-18 | XMS | Encounter Summary ---
Demographics + + + | Address | [address] | | | [place] [address] | + + + | Home Phone | | + + + | Preferred Language | Unknown | + + + | Marital Status | Single | + + + | Holiness Affiliation | NON | + + + [...] Team Providers + +------+ + | Care Client Reporting Associate Name | Role | Phone | + +------+ + | Heide Bhatti | PCP | | + +------+ + Encounter Details +--------+ + + + + | Date | Type | Department | Care Team | Description | +--------+ + + + + | 09/15/ | Telephone | Vascular Surgery | Kaveh Izaguirre MD | | | 2011 | | at [facility] 2nd Floor | [address] | | | | | [address] | [address] [place], | | | | | [address] Mailcode: | [place] [address] | | | | | [address] Physician's | [phone] | | | | | [place]enna [place], | | | | | | [place] [address] | | | | | | [phone] | | | +--------+ + + + [...] | | | | | [address] [place], | | | | | | [place] [address] | | | | | | [phone] | | | | | | | | +--------+ + + + + | 06/18/ | Procedure | Surgery | | | | 2020 | Pass | | | | +--------+ + + + + documented as of this encounter Visit Diagnoses Not on filedocumented in this encounter"
--- OUTSIDE RECORDS SUMMARY | ~2019-07-18 | XMS | Encounter Summary ---
Demographics + + + | Address | [address] | | | [place] [address] | + + + | Home Phone [...] Providers + +------+ + | Care Rn Team Leader Name | Role | Phone | [...] | | | | | without | [place], [place] | [address] | | | | | mention of | [address] | Physician's | | | | | cerebral | Phone: | Pavilion | | | | | infarction | [phone] | [place], [place] | | | | | Atherosclero | Fax: | [address] | | | | | sis of | [phone] | Phone: | | | | | [place] | | [phone] | | | | | arteries of | | Fax: | | | | | the | | [phone] | | | | | extremities | [...] | | | | | | Jenna [place], | | | | | | [place] [address] | | | | | | [phone] | | | +--------+ + + + [...] | | | | | [address] [place], | | | | | | [place] [address] | | | | | | [phone] | | | | | | | [...] of | | | | | | [place] arteries of | | | | | [...] | | | | | CAROTID | [id number] Name: | | | | | DUPLEX | DARCY ALVARADO Birthday: | | | | | COMPLETE | 1955 Sex: F | | | | | BILATERAL | Alias: Patient Location: | | | | | | [id number]: | | | | | | Outpatient [...] # | | | | | | [id number] | | | | | | RESULT:CEREBROVASCULAR [...] infarction | + + | Atherosclerosis of [place] arteries of the extremities with intermittent claudication | + + documented in this encounter"
--- OUTSIDE RECORDS SUMMARY | ~2019-07-18 | XMS | Encounter Summary ---
Demographics + + + | Address | [address] | | | [place] [address] | + + + | Home Phone [...] Team Providers + +------+ + | Care Trolley Coach Driver Name | Role | Phone | [...] Other (surgical | | 2019 | | [facility] [address] | [address] | clearance ) | | | | [place] Mailcode: | [place], | | | | | [facility] | [place] [address] | | | | | and Aam[place], | [phone] | | | | | [facility] [address] | | | | | | [place], [place] | | | | | | [address] | | | | | | [phone] | | | +--------+ + + + [...] | | | | | [place] [address] [place], | | | | | | [place] [address] | | | | | | [phone] | | | | | | | | +--------+ + + + + | 06/18/ | Procedure | Surgery | | | | 2019 | Pass | | | | +--------+ + + + + documented as of this encounter Visit Diagnoses Not on filedocumented in this encounter"
--- OUTSIDE RECORDS SUMMARY | ~2019-07-18 | XMS | Encounter Summary ---
Demographics + + + | Address | [address] | | | [place] [address] | + + + | Home Phone [...] + + + | Author | [facility] | + + + | Organization | [facility] | + + + | [...] Team Providers + +------+ + | Care Rat Trapper Name | Role | Phone | + [...] | | | | | Procedures | [place], [place] | | | | | | PHYSICAL | [address] | | | | | | THERAPY | Phone: | | | | | | REFERRAL | [phone] | | | | | | | Fax: | | | | | | | [phone] | | + +--------+ + + + [...] | | | | | lumbar | [address] | [address] | | | | | region with | Phone: | Phone: | | | | | neurogenic | [phone] | [phone] | | | | | claudication | Fax: | Fax: | | | | | | [phone] | [phone] | | | | | Radiculopath | | | | | | | y, lumbar | | | | | | | region | | | | | | | Procedures | | | | | | | REQUEST TO | | | | | | | SURGERY | | | | | | | SOCIAL MEDIA MANAGER | | | | | | | OR EXCIS | | | | | | | INTRASP | | | | | | | LESN,XDURAL, | | | | | | | LUMBAR OR | | | | | | | EXCIS | | | | | | | INTRASP | | | | | | | LESN,INTRADU | | | | | | | R,LUMB OR | | | | | | | BX/EXCIS | | | | | | | SPINAL | | | | | | | TUMOR,XDURAL | | | | | | | ,LUMB OR | | | | | | | BX/EXCIS | | | | | | | SPIN | | | | | | | BALBIR,INDUR,XM | | | | | | | ED,LUMB [place] | | | | | | [...] radiculopathy | | 2019 | Visit | [facility] [address] | SHAYE Beyer | (Primary Dx) | | | | Ave Mailcode: | [address] | | | | | [facility] | [place], [place] | | | | | and [place]am[place], | [address] | | | | | [place] [address] | [phone] | | | | | [place], [place] | | | | | | [address] | | | | | | [phone] | | | +--------+---------+ + + + [...] medial facetectomy, Right L 4-5 and Right [id number]-[id number] and Resection of right L4-5 synovial cyst [...] this plan. [facility] [address] [place] [address] documented in t his encounter Plan of Treatment +--------+ + + + + | Date | Type | Specialty | Care Team | Description | +--------+ + + + + | 06/17/ | Hospital | Adult Acute Care | Jarrod Barrett MD | | | 2019 | Encounter | | [address] | | | | | | [place], | | | | | | [place] [address] | | | | | | [phone] | | | | | | | [...]
--- OUTSIDE RECORDS SUMMARY | ~2019-07-18 | XMS | Encounter Summary ---
Demographics + + + | Address | [address] | | | [place] [address] | + + + | Home Phone [...] + + + | Author | [facility] | + + + | Organization | [facility] | + + + | [...] Team Providers + +------+ + | Care Veterinarian Assistant Name | Role | Phone | [...] | | | | | without | [place], [place] | [address] | | | | | mention of | [address] | Physician's | | | | | cerebral | Phone: | Pavilion | | | | | infarction | [phone] | [place], [place] | | | | | Atherosclero | Fax: | [address] | | | | | sis of | [phone] | Phone: | | | | | [place] | | [phone] | | | | | arteries of | | Fax: | | | | | the | | [phone] | | | | | extremities | [...] | | | | | | Jenna [place], | | | | | | [place] [address] | | | | | | [phone] | | | +--------+ + + + [...] | | | | | [place] [address] [place], | | | | | | [place] [address] | | | | | | [phone] | | | | | | | [...] of | | | | | | [place] arteries of | | | | | [...] | | | | | CAROTID | [id number] Name: | | | | | DUPLEX | DARCY ALVARADO Birthday: | | | | | COMPLETE | 1955 Sex: F | | | | | BILATERAL | Alias: Patient Location: | | | | | | [id number]: | | | | | | Outpatient [...] # | | | | | | [id number] | | | | | | RESULT:CEREBROVASCULAR [...] infarction | + + | Atherosclerosis of [place] arteries of the extremities with intermittent claudication | + + documented in this encounter"
--- OUTSIDE RECORDS SUMMARY | ~2019-07-18 | XMS | Encounter Summary ---
Demographics + + + | Address | [address] | | | [place] [address] | + + + | Home Phone [...] Team Providers + +------+ + | Care Film Projector Operator Name | Role | Phone | + +------+ + | Litzy Castillo MD | PCP | | + +------+ + Encounter Details +--------+ + + + + | Date | Type | Department | Care Team | Description | +--------+ + + + + | 12/14/ | Procedure | 6A Intra Op [facility] | | | | 2019 | Pass | [facility] | | | | | | Admitting Desk | | | | | | Located on the 9th | | | | | | floor [address] [facility] | | | | | | [address] | | | | | | [place], [place] | | | | | | [address] | | | +--------+ + + + [...] | | | | | [place], | | | | | | [place] [address] | | | | | | [phone] | | | | | | | | +--------+ + + + + | 06/18/ | Procedure | Surgery | | | | 2020 | Pass | | | | +--------+ + + + + documented as of this encounter Visit Diagnoses Not on filedocumented in this encounter"
--- OUTSIDE RECORDS SUMMARY | ~2019-07-18 | XMS | Encounter Summary ---
Demographics + + + | Address | [address] | | | [place] [address] | + + + | Home Phone | | + + + | Preferred Language | Unknown | + + + | Marital Status | Single | + + + | Episcopal Affiliation | NON | + + + | Race | White | + + + | Ethnic Group | Not or | + + + Author + + + | Author | [facility] | + + + | Organization | [facility] | + + + | [...] Providers + +------+ + | Care Chief Operations Officer Name | Role | Phone [...] | | | | | | | [address] | | | | | | | [address] | | | | | | | [id number] | | | | | | | [facility] | | | | | | | Hospital | | | | | | | [place], [place] | | | | | | | [address] | | | | | | | Phone: | | | | | | | [phone] | | | | | | | Fax: | | | | | | | [phone] | +--------+--------+ + + + + Encounter Details +--------+ + + + + | Date | Type | Department | Care Team | Description | +--------+ + + + + | 11/15/ | Emergency | [facility] Emergency | | | | 2009 - | | Department [address] | | | | 11/16/ | | [facility] | | | | 2009 | | [place], [place] | | | | | | [address] | | | | | | [phone] | | | +--------+ + + + [...] | | | | | [place], | | | | | | [place] [address] | | | | | | [phone] | | | | | | | | +--------+ + + + + | 06/18/ | Procedure | Surgery | | | | 2019 | Pass | | | | +--------+ + + + + documented as of this encounter Visit Diagnoses Not on filedocumented in this encounter"
--- OUTSIDE RECORDS SUMMARY | ~2019-07-18 | XMS | Encounter Summary ---
Demographics + + + | Address | [address] | | | [place] [address] | + + + | Home Phone [...] Team Providers + +------+ + | Care Concrete Block Molder Name | Role | Phone | + +------+ + | Litzy Castillo MD | PCP | | + +------+ + Encounter Details +--------+ + + + + | Date | Type | Department | Care Team | Description | +--------+ + + + + | 08/28/ | Hospital | [facility] IP | Conversion | Pain | | 2019 | Encounter | [address] | Transaction, | | | | | [address] | Provider Unknown | | | | | [place], [place] | [phone] | | | | | [address] | | | | | | [phone] | | | +--------+ + + + [...] [address] | | | | | | [place] [address] | | | | | | [phone] | | | | | | | [...]
--- OUTSIDE RECORDS SUMMARY | ~2019-07-18 | XMS | Encounter Summary ---
Demographics + + + | Address | [address] | | | [place] [address] | + + + | Home Phone | | + + + | Preferred Language | Unknown | + + + | Marital Status | Single | + + + | Catholic Affiliation | NON | + + [...] Team Providers + +------+ + | Care Claims Clerk Name | Role | Phone | [...] + + | 09/17/ | Telephone | [place] [facility] | Iván, | | | 2011 | | [facility] [place] | MD Marichuy | | | | | [facility] | | | | | | [address] | | | | | | [place] Mailcode: | | | | | | [address] [place] | | | | | | [facility] | | | | | | floor [place], [place] | | | | | | [address] | | | | | | [phone] | | | +--------+ + + + [...] | | | | | [place] [address] [place], | | | | | | [place] [address] | | | | | | [phone] | | | | | | | | +--------+ + + + + | 06/18/ | Procedure | Surgery | | | | 2020 | Pass | | | | +--------+ + + + + documented as of this encounter Visit Diagnoses Not on filedocumented in this encounter"
--- OUTSIDE RECORDS SUMMARY | ~2019-07-18 | XMS | Encounter Summary ---
Demographics + + + | Address | [address] | | | [place] [address] | + + + | Home Phone | | + + + | Preferred Language | Unknown | + + + | Marital Status | | + + + | Mandaen Affiliation | Unknown | + + + | Race | Unknown | + + + | Ethnic Group | Unknown | + + + Author + + + | Author | [facility] | | | and [place] | + + + | Organization | [facility] | | [...] Team Providers + +------+ + | Care Javascript Engineer Name | Role | Phone | + +------+ + | Litzy Castillo MD | PCP | | + +------+ + Encounter Details +--------+ + + + + | Date | Type | Department | Care Team | Description | +--------+ + + + + | 08/28/ | Hospital | [facility] GENER[facility] IP | Conversion | Pain | | 2019 | Encounter | [address] | Transaction, | | | | | [address] | Provider Unknown | | | | | [place], [place] | [phone] | | | | | [address] | | | | | | [phone] | | | +--------+ + + + [...] | 2020 | Visit | | [address] | | | | | | [address] | | | | | | [place] [address] | | | | | | [phone] | | | | | | | | +--------+---------+ + + + documented as of this encounter Procedures + +--------+ + + + | Procedure Name | Priori | Date/Time | Associated Diagnosis | Comments | | | ty | | | | + +--------+ + + + | XR SHOULDER LEFT 2 + | Routin | 05/30/2016 | | Results for this | | VW | e | 5:05 AM | | procedure are in the | | | | PDT | | results section. | + +--------+ + + + documented in this encounter Results XR Shoulder Left 2 + Vw (05/30/2016 5:05 AM PDT) + + | Specimen [...]
--- OUTSIDE RECORDS SUMMARY | ~2019-07-18 | XMS | Encounter Summary ---
Demographics + + + | Address | [address] | | | [place] [address] | + + + | Home Phone [...] Team Providers + +------+ + | Care Dramatic Arts Historian Name | Role | Phone | + [...] | | of carotid | [address] | [facility] | | | | | artery | [address] | Rd Mailcode: | | | | | without | [place], [place] | [address] | | | | | mention of | [address] | Physician's | | | | | cerebral | Phone: | Pavilion | | | | | infarction | [phone] | [place], [place] | | | | | Atherosclero | Fax: | [address] | | | | | sis of | [phone] | Phone: | | | | | [place] | | [phone] | | | | | arteries of | | Fax: | | | | | the | | [phone] | | | | | extremities | [...] | 2010 | Encounter | [facility] | | | | | | [address] | | | | | | [place] Mailcode: | | | | | | [address] Physician's | | | | | | Jenna [place], | | | | | | [place] [address] | | | | | | [phone] | | | +--------+ + + + [...] | | | | | [place], | | | | | | [place] [address] | | | | | | [phone] | | | | | | | [...] of | | | | | | [place] arteries of | | | | | [...] | | | | ANKLE BRACH | [id number] Name: | | | | | INDICS [...] | | | | | PMAccession # [id number] | | | | | | RESULT:LOWER [...] the | | | | | | [id number] arteries | | | | | | [...] infarction | + + | Atherosclerosis of [place] arteries of the extremities with intermittent claudication | + + documented in this encounter"
--- OUTSIDE RECORDS SUMMARY | ~2019-07-18 | XMS | Encounter Summary ---
Demographics + + + | Address | [address] | | | [place] [address] | + + + | Home Phone | | + + + | Preferred Language | Unknown | + + + | Marital Status | | + + + | Gnosticism Affiliation | Unknown | + + + | Race | Unknown | + + + | Ethnic Group | Unknown | + + + Author + + + | Author | [facility] | | | and [place] | + + + | Organization | [facility] | | | [...] Team Providers + +------+ + | Care Fish Butcher Name | Role | Phone | + +------+ + | Litzy Castillo MD | PCP | | + +------+ + Reason for Visit + + + | Reason | Comments | + + + | Follow-up, Office | 3 month | | Visit | | + + + Encounter Details +--------+---------+ + + + | Date | Type | Department | Care Team | Description | +--------+---------+ + + + | 06/09/ | Office | [facility] | Christine Ortega | Peripheral vascular | | 2019 | Visit | CARDIOLOGY [place] | [address] | disease (HCC) | | | | [address] | [address] | (Primary Dx); | | | | [address] | [place] [address] | Essential | | | | [place], [place] | [phone] | hypertension; S/P | | | | [address] | | carotid | | | | [phone] | | endarterectomy; | | | | [...] and stroke | +--------+---------+ + + + Social History [...] in this encounter Patient Instructions Patient Instructions Christine Ortega FNP - 06/09/2019 10:00 AM PDTI have ordered you fasting labs to be done at [facility],and hang on to slips , and combine with any labs ordere d by Dr. Castillo . I would like to order you an an Echo and can see if you would like to do that when you see me back I made no changes to medications I would recommend you work on reducing or quitting smoking, and get flu vaccine See me back in 3 months documented in this encounter Progress Notes Christine Ortega FNP - 06/09/2019 10:00 AM PDTFormatting of this note might be differe nt from the original. Date of visit: 06/10/2019 Primary Care Physician: Litzy Castillo MD CHIEF COMPLAINT: Chief Complaint Patient presents with Follow-up, Office Visit 3 month HISTORY OF PRESENT ILLNESS: Ms. Darcy Sun is a 64 year old woman who is here today for 3 month follow up She is a patient of ,who is her primary healthcare sales representative, and last seen by her 019 Today, I reviewed all previous documentation available to me in electronic medical edgard rds and from external sources. She has a history of hypertension, stroke in 2009 and 2012, peripheral vascular disease w ith known total occlusion of the left ICA, and is status post right carotid endarterectomy, hypertension, hyperlipidemia arthritis, hypothyroidism, and COPD/Asthma , and is current s moker . She also reports that she had an angiogram performed many years ago in the late s for suspicion of coronary artery disease which was normal in [facility] in [place]. She rep orts she sustained damage to her right femoral artery as a result that procedure, and had a right aortofemoral bypass. When previously seen by Dr. Bennett, she noted that she was not very active due to back pain, a nd that she spent most of her day in a recliner smoking cigarettes and drinking beer, and dr inks 4-5 beers per day and not interested in quitting smoking or quitting drinking. When last seen in February, she had surgery at the end of December with an improvement to her back pain a s well as her functional capacity and able to do 4 METS without any anginal symptoms, and wa s able to walk outside for 10-15 minutes, and walk around [facility] as well. Her Plavix had been stopped by her neurosurgeon ,and Dr. Suresh continued aspirin 81 mg da , which had also been recommendation from neurology appointment in 2018. Dr. Suresh also noted that she continued to smoke, was not interested in quitting, and continued to drink be er, but a little less. Her current and previous testing and procedures are detailed below. Today, she reports she continues to feel well, and has been more active since her back pain has been resolved, and just finished her physical therapy on May 25. She continues to smoke about the same amount of a pack a day, and drinks a six pack of beer during the course of the day. She has ongoing mild dyspnea with exertion which is mostly noticeable when she climbs s tairs or a steep incline, but does not bother her for her usual activities of daily living. She also reports some claudication to her calves when she walks longer distances or up an i ncline. She denies any chest pain, palpitations,dizziness,or syncope. She also denies any signs or symptoms of stroke or TIA, or any illness, surgery, or hospitalization since last seen. She reports she had a lot of nausea and vomiting when she was on gabapentin and I note that her weight is down 24 pounds since February 2018 when she weighed 143 pounds., but she reports it has stabilized. Mom bring her medications to the clinic today, so I reviewed her pharmacy dispense record a nd previous medication records with her. I have requested that she bring her medication bot tles to all future clinic visits. REVIEW OF SYSTEMS: Negative except for pertinent items noted in HPI. Constitutional: Denies fatigue . Appetite is okay. Weight is down 24 lbs since 2018 when weighed 143 lb. Denies night sweats fevers or chills HENT: Denies nosebleeds. Denies hearing problems. Denies dysphagia Eyes: cataract surgery right year, left eye early cataract. Denies visual disturbance or d ouble vision. Respiratory/Sleep:: Current smoker, COPD/emphysema, obstructive asthma. 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 Daily dry cough Denies hemoptysis or excessive sputum production. Denies snoring , orthopnea, PND. Cardiovascular: Denies chest pain, palpitations and leg swelling. Denies history of rheuma tic fever. Intermittent claudication when walks, can not walk more than 5 minutes Gastrointestinal: Denies GERD. Denies nausea, vomiting, abdominal pain and blood in stool . Genitourinary: Denies hematuria. Musculoskeletal: Degenerative disc disease, spinal stenosis, back surgery 12/2018 for chroni c debilitating back pain. denies myalgias, and arthralgias. Skin: Denies color change. Denies rash or lesions Neurological: history of stroke/Transient ischemic attack, 2010: TIA and 2013: Acute isch emic stroke. , Some residual balance issues, notes drooling when sleeping on her left side .. (Neurologist,Nayla Sandoval at [facility]) Denies history of seizures. Denies dizziness, syn cope and numbness. Hematological/Oncology . Bruises easily. Denies bleeding Denies DVT/PE Denies history of cancer Endocrine: Denies diabetes. Hypothyroidism. denies excessive thirst or hunger. Psychiatric/Behavioral: denies any history of depression or anxiety or other psychiatric il lness. Vaccines: Not current on flu vaccine. Current on post 63 pneumonia vaccine. Habits/Social : current Smoker, 1-1.5 ppd and started when 13 years . EtOH use: 6 pack B udweiser beers per day . Drinks 1 servings of 1/2 caffeine coffee daily . Denies recreati onal or illicit drug use. Exercises with walking since back surgery , and can walk 5 minut es , and stopped with leg cramps. . Lives in [place] . Outpatient Medications Prior to Visit Medication Sig Dispense Refill albuterol 90 mcg/puff inhaler Inhale 2 puffs into the lungs every 4 hours as needed for Wheezing or Shortness of Breath. aspirin 325 mg tablet Take 325 mg by mouth Daily. aspirin 81 mg EC tablet Take 81 mg by mouth Daily. atenolol (TENORMIN) 50 mg tablet Take 100 mg by mouth 2 times daily. clopidogrel (PLAVIX) 75 mg tablet Take 75 mg by mouth Daily. cyclobenzaprine (FLEXERIL) 5 MG tablet Take 1 tablet by mouth 3 times daily as needed f or Muscle spasms. (Patient not taking: Reported on 07/19/2018) 60 tablet 0 gabapentin (NEURONTIN) 300 mg capsule Take 300 mg by mouth 4 times daily. ibuprofen (ADVIL, MOTRIN) 200 mg tablet Take 200 mg by mouth every 6 hours as needed fo r Pain. levothyroxine (SYNTHROID) 25 mcg tablet Take 50 mcg by mouth every morning (before brielle kfast). rosuvastatin (CRESTOR) 40 MG tablet Take 40 mg by mouth nightly. simvastatin (ZOCOR) 40 mg tablet Take 40 mg by mouth nightly. traMADol (ULTRAM) 50 mg tablet 1-2 tablets PO q6 hours PRN back pain (Patient not takin g: Reported on 07/19/2018) 90 tablet 0 umeclidinium-vilanterol (ANORO ELLIPTA) 62.5-25 mcg/puff inhaler Inhale 1 puff into the lungs Daily. valsartan (DIOVAN) 80 mg tablet Take 80 mg by mouth Daily. No facility-administered medications prior to visit. PHYSICAL EXAM: Wt Readings from Last 3 Encounters: 06/09/19 54.3 kg (119 lb 12.8 oz) 09/30/18 57.2 kg (126 lb 3.2 oz) 03/17/18 64.9 kg (143 lb) Temp Readings from Last 3 Encounters: No data found for Temp BP Readings from Last 3 Encounters: 06/09/19 138/78 09/30/18 142/74 03/17/18 172/88 Pulse Readings from Last 3 Encounters: 06/09/19 64 09/30/18 71 03/17/18 88 GENERAL: Well developed, well nourished, in no distress. Appears approximately stated age . HEENT: Normocephalic, atraumatic. EYES: PERRL, EOM normal. MOUTH: Oral mucosae moist, dentition adequate, no lesions noted NECK: Right CEA scar No JVD, lymphadenopathy, thyromegaly, bruits. Carotid pulses are 2 + bilaterally LUNGS/CHEST: Coarse breath sounds throughout, some clearing with coughing, occasional ins piratory squeal. No rales. Respirations unlabored HEART: Nondisplaced PMI, regular rate and rhythm, S1, S2 normal. No murmurs, rubs or gall ops noted. ABDOMEN: Soft, nontender, no organomegaly, masses or bruits. Bowel sounds are normal in a ll 4 quadrants. The abdominal aortic pulsation is not palpable. EXTREMITIES: No edema. Radial pulses 2+ bilaterally. Femoral pulses are 2+ bilaterally wi thout bruits. DP and PT pulses are 2+ bilaterally. No clubbing. SKIN: Warm and dry, capillary refill is normal, no lesions. NEUROLOGIC: Awake, alert and oriented x 3. No focal motor or sensory deficits. PSYCHIATRIC: Appropriate, affect appears normal DATA: Blood tests: No results found for: WBC, RBC, HGB, HCT, PLT No results found for: NA, K, CL, CO2, ANIONGAP, GLUF, BUN, CREATININE, BCR, EGFR No results found for: CHOL, TRIG, LDL, LDL, GLUF No results found for: BNP, TSH, CRP No results found for: TOTEPI CARDIAC PROCEDURES/IMAGING Angiogram: Approximately 1994: ([facility]): Reported as normal by patient, eryn perez to right femoral artery, requiring right aortofemoral bypass. VASCULAR TESTING AND PROCEDURES CTA head and neck: : ([facility]): Chronic occlusion of proximal cervical left internal carotid artery without reconstitution within the neck, status post right carotid endarterect rosendo, moderate right vertebral artery stenosis, no new intracranial proximal arterial occlus ion. Mild to moderate proximal left common carotid stenosis. Emphysema noted to upper lung . CTA head: Reconstitution of left ICA at the level of the paraclinical segment of the floo r. No new anterior cranial proximal arterial occlusions. Additional intracranial proximal arterial stenosis. ECHO-none OTHER: PFT: 03/02/2019: Spirometry: FVC 2.08 (80%) FEV1 1.54 (75%) ratio 74% bronchodilator respons e. Lung volumes: FVC 2.14 (82%) RV 2.62 (138%) TLC 4.76 (106%) RV/TLC 55 (134%). Diffusion : DLCO 9.10 (48%) DLCO/VA 2.75 (64%). Report and tracing personally reviewed by me, demonst rates mild obstructive disease with air trapping and emphysema, likely hypoxemia with severe diffusion defect. EKG/EVENT MONITOR EK09/30/2018: Sinus tachycardia, low voltage QRS leads I, aVL, and V1, noted small T wave inversion aVL. Rate 119 bpm, IN 178 ms, QRS 60 ms, QTC 458 ms, tracing personally reviewed by me EK06/09/2019: Normal sinus rhythm. Noted low voltage QRS leads I, aVL, V1 with T wave i nversions aVL and T wave flattening V1. Rate 61 bpm, IN 186 ms, QRS 70 ms, QTC 396 ms, trac ing personally reviewed by me, and compared to EKG performed in September, rate is now well controlled, but similar morphology otherwise LABS Labs:01/2019"?: Lipids: Cholesterol 170, triglyceride 131, HDL 54, LDL 37. CMP: Sodium 130 , potassium 4.4, chloride 100, CO2 21, glucose 25, BUN 17, creatinine 0.93. Thyroid: TSH 4. 25 Addendum: 06/30/2019: Labs: 06/30/2019: Lipids: Cholesterol 98, triglycerides 164, HDL 44, LD L 21. CMP: Sodium 134, potassium 4, chloride 103, glucose 94, BUN 16, creatinine 1.17, AST 19, ALT 15, alk phos 98, total bili 0.5, GFR 46, albumin 4.2. Thyroid: TSH 3.49. CBC: WBC 11.2, RBC 3.65, hemoglobin 11.8, hematocrit 35.6, platelets 351 ASSESSMENT & PLAN: She was here for 3-month follow-up, and was supposed to have repeat lipid panel done to evaluate her response to Crestor [address] Suresh, but labs not completed. She has problems as detailed below. Her EKG performed in the clinic today is detailed above and shows normal sinus rhythm at 61 bpm, and may have had a previous IA. I reviewed her EKG in detail with her, as well as her previous PFT, and discussed the etiol ogy of peripheral vascular disease, and the effect of her smoking. Overall she is quite stable today and asymptomatic and heart rate and blood pressure well c ontrolled on current medications, but symptomatic for claudication. I discussed with her the impact of her ongoing smoking on her peripheral vascular disease, and with her emphysema and mild COPD, she is also at risk for pulmonary hypertension, as wel l as hypoxemia, especially given her low diffusion on her PFT. I have ordered her a CMP and lipid panel to evaluate her response to Crestor, and also s uggested to her that she would benefit from an Echo, but she is not sure she wants to do thi s today. I also suggested to her that she discuss getting at least a nocturnal oximetry, an d perhaps a sleep apnea evaluation, she is going to think about this. I made no changes to cardiac medications today, and she should continue aspirin 81 mg daily for peripheral vascular disease, atenolol 100 mg daily for heart rate control, as previous ly quite tachycardic, Crestor 40 mg nightly for hyperlipidemia. I have also suggested that she try to moderate her drinking, but she is really not inter ested today changing her habits, as she reports she lives alone her cats and is content with her life. I will see her back in 3 months, and have requested that she get the labs that I ordered done in conjunction with any labs ordered by Dr. Castillo, whom she will be seeing soon. 1. Peripheral vascular disease (HCC) 2. Essential hypertension 3. S/P carotid endarterectomy 4. Carotid occlusion, left 5. Claudication, intermittent (HCC) 6. Other emphysema (HCC) 7. Tobacco dependence 8. Alcohol abuse 9. Mixed hyperlipidemia 10. History of stroke 11. History of TIA (transient ischemic attack) and stroke Orders Placed This Encounter Procedures Comprehensive Metabolic Panel Lipid Panel ECG 12 lead The following portions of the patient's history were personally reviewed by me and updated as appropriate: EKG tracings, other specialty provider and PCP notes,any Hospital admission and discharge summaries, any ER records , current and previous cardiac testing and procedure reports and d riki, medication bottles NOT brought to visit today .Allergies, current medications.labs Family history, past medical history, past social history, past surgical history. Problem list. This encounter was dictated with voice recognition software and may contain inadvertent rec ognition errors. [facility] Eran wallis in this encounter Plan of Treatment +--------+---------+ + + + | Date | Type | Specialty | Care Team | Description | +--------+---------+ + + + | 09/08/ | Office | Cardiology | Christine Ortega | | | 2020 | Visit | | [address] | | | | | | [address] | | | | | | [place] [address] | | | | | | [phone] | | | | | | | | +--------+---------+ + + + + +------+--------+ + + | Name | Type | Priori | Associated Diagnoses | Order Schedule | | | | ty | | | + +------+--------+ + + | Comprehensive | Lab | Routin | Essential | Expected: | | Metabolic Panel | | e | hypertension Mixed | 06/09/2019, Expires: | | | | | hyperlipidemia | 06/09/2020 | + +------+--------+ + + | Lipid Panel | Lab | Routin | Mixed | Expected: | | | | e | hyperlipidemia | 06/09/2019, Expires: | | | | | | 06/09/2020 | + +------+--------+ + + documented as [...] the | | | | PDT | ([facility]) Essential | results section. | | | | | hypertension S/P | | | | | | carotid | | | | | | endarterectomy | | | | | | Carotid occlusion, | | | | | | left Claudication, | | | | | | intermittent ([facility]) | | | | | | Other emphysema | | | | | | ([facility]) Tobacco | | | | | | dependence Alcohol | | | | | | abuse Mixed | | | | | | hyperlipidemia | | | | | | History of stroke | | + +--------+ + + + documented in this encounter Results ECG 12 lead (06/09/2019 9:55 AM [...] | | | | | by [employer] Points Read Only, | | | | | | ICA Brad ([id number]), | | | | | | supervising editor news reel Agustin Michel | | | | | | ([id number]) on 06/09/2019 | | | | | [...] + | Diagnosis | + + | Peripheral vascular disease (HCC) - Primary Peripheral vascular disease, unspecified | + + | Essential hypertension Unspecified essential hypertension | + + | S/P carotid endarterectomy Other postprocedural status | + + | Carotid occlusion, left Occlusion and stenosis of carotid artery without mention of | | cerebral infarction | + + | Claudication, intermittent (HCC) Peripheral vascular disease, unspecified | + + | Other emphysema (HCC) Other emphysema | + + | Tobacco dependence Tobacco use disorder | + + | Alcohol abuse Alcohol abuse, unspecified | + + | Mixed hyperlipidemia | + + | History of stroke Transient ischemic attack (TIA), and cerebral infarction without | | residual deficits | + + | History of TIA (transient ischemic attack) and stroke | + + documented in this encounter
--- OUTSIDE RECORDS SUMMARY | ~2019-07-18 | XMS | Encounter Summary ---
Demographics + + + | Address | [address] | | | [place] [address] | + + + | Home Phone | | + + + | Preferred Language | Unknown | + + + | Marital Status | | + + + | Spiritism Affiliation | Unknown | + + + | Race | Unknown | + + + | Ethnic Group | Unknown | + + + Author + + + | Author | [facility] | | | and [place] | + + + | Organization | [facility] | | | [...] Team Providers + +------+ + | Care Baggage Agent Supervisor Name | Role | Phone | + +------+ + | Litzy Castillo MD | PCP | | + +------+ + Encounter Details +--------+ + + + + | Date | Type | Department | Care Team | Description | +--------+ + + + + | 08/28/ | Hospital | [facility] GENER[facility] IP | Conversion | Pain | | 2019 | Encounter | [address] | Transaction, | | | | [address] | Provider Unknown | | | | | [place], [place] | [phone] | | | | | [address] | | | | | | [phone] | | | +--------+ + + + [...] [address] | | | | | | [place] [address] | | | | | | [phone] | | | | | | | [...]
--- OUTSIDE RECORDS SUMMARY | ~2019-07-18 | XMS | Encounter Summary ---
Demographics + + + | Address | [address] | | | [place] [address] | + + + | Home Phone [...] Author + + + | Author | [facility] | + + + | Organization | [facility] | + + + | [...] Providers + +------+ + | Care Tank House Operator Helper Name | Role | Phone | + +------+ + | Litzy Castillo MD | PCP | | + +------+ + Encounter Details +--------+ + + + + | Date | Type | Department | Care Team | Description | +--------+ + + + + | 06/17/ | Anesthesia | Preoperative | Irina Green | | | 2018 | Event | [facility] | S, ANIMAL SERVICES OFFICER [address] | | | | | Formerly Named [facility] | [facility] | | | | | [address] | [place], [place] | | | | | Mail Code: OC8PM | [address] | | | | | [facility] | [phone] | | | | | and Healing, | | | | | | [address] | | | | | | [place], [place] | | | | | | [address] | | | | | | [phone] | | | +--------+ + + + [...] | | | | | [place], | | | | | | [place] [address] | | | | | | [phone] | | | | | | | | +--------+ + + + + | 06/18/ | Procedure | Surgery | | | | 2019 | Pass | | | | +--------+ + + + + documented as of this encounter Visit Diagnoses Not on filedocumented in this encounter"
--- OUTSIDE RECORDS SUMMARY | ~2019-07-18 | XMS | Encounter Summary ---
Demographics + + + | Address | [address] | | | [place] [address] | + + + | Home Phone | | + + + | Preferred Language | Unknown | + + + | Marital Status | | + + + | Bahai Affiliation | Unknown | + + + | Race | Unknown | + + + | Ethnic Group | Unknown | + + + Author + + + | Author | [facility] | | | and [place] | + + + | Organization | [facility] | | | [...] Team Providers + +------+ + | Care Garment Patternmaker Name | Role | Phone | + [...] | Appointment | | 2018 | | [facility] | TERRY Pacheco | (Telemedicine) | | | | [facility] [address] | | | | | | [address] [facility], | | | | | | [place] [address] | | | | | | [phone] | | | +--------+ + + + [...] [address] | | | | | | [place] [address] | | | | | | [phone] | | | | | | | | +--------+---------+ + + + documented as of this encounter Visit Diagnoses Not on filedocumented in this encounter"
--- OUTSIDE RECORDS SUMMARY | ~2019-07-18 | XMS | Encounter Summary ---
Demographics + + + | Address | [address] | | | [place] [address] | + + + | Home Phone | | + + + | Preferred Language | Unknown | + + + | Marital Status | | + + + | Pentecostal Affiliation | Unknown | + + + | Race | Unknown | + + + | Ethnic Group | Unknown | + + + Author + + + | Author | [facility] | | | and [place] | + + + | Organization | [facility] | | [...] Team Providers + +------+ + | Care Road Manager Name | Role | Phone | + +------+ + | Litzy Castillo MD | PCP | | + +------+ + Encounter Details +--------+ + + + + | Date | Type | Department | Care Team | Description | +--------+ + + + + | 08/27/ | Hospital | [facility] GENER[facility] IP | Conversion | Diagnosis unknown | | 2019 | Encounter | [address] | Transaction, | | | | [address] | Provider Unknown | | | | | [place], [place] | [phone] | | | | | [address] | | | | | | [phone] | | | +--------+ + + + [...] [address] | | | | | | [place] [address] | | | | | | [phone] | | | | | | | [...]
--- OUTSIDE RECORDS SUMMARY | ~2019-07-18 | XMS | Encounter Summary ---
Demographics + + + | Address | [address] | | | [place] [address] | + + + | Home Phone [...] + + + | Author | [facility] | + + + | Organization | [facility] | + + + | [...] Team Providers + +------+ + | Care Residence Counselor Name | Role | Phone | [...] | | | | Patrick, | MAINE Jose | | | | | endarterecto | [address] | [facility] | | | | | my | [address] | Rd Mailcode: | | | | | Procedures | [facility] | [address] | | | | | VASC LAB | Road | Physician's | | | | | CAROTID | [place], [place] | Pavilion | | | | | DUPLEX RIGHT | [address] | [place], [place] | | | | | | Phone: | [address] | | | | | | [phone] | Phone: | | | | | | Fax: | [phone] | | | | | | [phone] | Fax: | | | | | | | [phone] | +--------+--------+ + + + + Reason for Visit + + + | Reason | Comments | + + + | Postoperative visit | Right carotid endarterectomy with patch angioplasty. | + + + | Evaluation of test | VL | | results | | + + + Encounter Details +--------+---------+ + + + | Date | Type | Department | Care Team | Description | +--------+---------+ + + + | 12/03/ | Office | Vascular Surgery | Gus Barroso, | S/p carotid | | 2009 | Visit | at [facility] 2[address] Floor | [address] | endarterectomy | | | | [address] | [address] | (Primary Dx); | | | | [place] Mailcode: | [place], [place] | Unspecified | | | | OP11 Physician's | [address] | transient cerebral | | | | [place], | [phone] | ischemia | | | | [place] [address] | | | | | | [phone] | | | +--------+---------+ + + + [...] documented as of this encounter Progress Notes Patrick Johnson MD - 12/03/2009 2:08 PM PDT12/03/2009 Vascular Surgery Clinic Follow-up note Attending: Dr. Kadeem Barroso S:Mrs. Dov Sun is now POD #13 after her right carotid endarterectomy which followed her presentation with acute stroke symptoms; her left internal carotid is known to be occluded; she has been well since discharge and complains only of "floaters" in her left eye and occas ional blurred vision; she has not had any further neurological symptoms; she has not had any imaging of her carotid since surgery. O:female no acute distress There were no vitals taken for this visit. Neck: incision is healing with some hypertrophy; there is no redness or induration however; she has a 2+ palpable pulse in the left carotid. Carotid duplex reveals a patent repair with flow (see scan of study and report) Assesment: post-op left carotid endarterectomy Plan:she will follow-up in one year with another scan. Dov Sun was seen with Dr. Barroso who is aware of the consultation findings, saw and exam ined the patient and was involved in the formulation of the management plan. PATRICK NUNEZ MD VASCULAR SURGERY [address] [place] [address] Mailcode: [facility] [place] [address] Gus Gan MD - 12/03/2009 1:58 PM PDTI saw and evaluated the patient. I agree with the findings and the plan of care as documented in the resident s note. Her follow up duplex is fine and w e will see her in one year GUS BARROSO MD VASCULAR SURGERY [address] [place] [address] Mailcode: [place] [place] [address] documented in this en counter Plan of Treatment +--------+ + + + + | Date | Type | Specialty | Care Team | Description | +--------+ + + + + | 06/17/ | Hospital | Adult Acute Care | Jarrod Barrett MD | | | 2019 | Encounter | | [address] | | | | | | [place], | | | | | | [place] [address] | | | | | | [phone] | | | | | | | | +--------+ + + + + | 06/18/ | Procedure | Surgery | | | | 2019 | Pass | | | | +--------+ + + + + documented as of this encounter Results [facility] CAROTID DUPLEX RIGHT (12/03/2009 2:49 PM PDT) + + + + + + | Component | Value | Ref Range | Performed | Pathologist | | | | | At | Signature | + + + + + + | VASC LAB | Med Rec No: | | | | | CAROTID | [id number] Name: | | | | | DUPLEX | DOV SUN Birthday: | | | | | RIGHT | 1955 Sex: F | | | | | | Alias: Patient Location: | | | | | | [id number]: | | | | | | Outpatient | | | | | | ActiveOrdering | | | | | | Physician: GUS Dill | | | | | | Johnathan BARROSO VCARR VL | | | | | | CAROTID DUPLEX [address] | | | | | | completed on 12/03/2009 | | | | | | 2:49 PMAccession # | | | | | | [id number] | | | | | | RESULT:CEREBROVASCULAR [...] Dr. | | | | | | GUS JUNIOR | | | | | | LANDRYSTATUS PRELIMINARY | | | | | | [...] | | + +---------+ + + | [facility] DEPARTMENT OF | | | | | RADIOLOGY | | | | + +---------+ + + documented in this encounter Visit Diagnoses + + | Diagnosis | + + | S/P carotid endarterectomy - Primary Other postprocedural status | + + | Unspecified transient cerebral ischemia | + + documented in this encounter
--- OUTSIDE RECORDS SUMMARY | ~2019-07-18 | XMS | Encounter Summary ---
Demographics + + + | Address | [address] | | | [place] [address] | + + + | Home Phone | | + + + | Preferred Language | Unknown | + + + | Marital Status | | + + + | Jehovah'S Witness Affiliation | Unknown | + + + | Race | Unknown | + + + | Ethnic Group | Unknown | + + + Author + + + | Author | [facility] | | | and [place] | + + + | Organization | [facility] | | [...] Team Providers + +------+ + | Care Workers Compensation Adjuster Name | Role | Phone | + +------+ + | Litzy Castillo MD | PCP | | + +------+ + Encounter Details +--------+ + + + + | Date | Type | Department | Care Team | Description | +--------+ + + + + | 08/27/ | Hospital | [facility] GENER[facility] IP | Conversion | Diagnosis unknown | | 2019 | Encounter | CONVERSION [address] | Transaction, | | | | | [address] | Provider Unknown | | | | | [place], [place] | [phone] | | | | | [address] | | | | | | [phone] | | | +--------+ + + + [...] [address] | | | | | | [place] [address] | | | | | | [phone] | | | | | | | | +--------+---------+ + + + documented as of this encounter Procedures + +--------+ + + + | Procedure Name | Priori | Date/Time | Associated Diagnosis | Comments | | | ty | | | | + +--------+ + + + | CT ANGIOGRAM HEAD | Routin | 02/25/2013 | | Results for this | | NECK W CONTRAST | e | 6:27 PM | | procedure are in the | | | | PDT | | results section. | + +--------+ + + + documented in this encounter Results CT Angiogram Head and Neck w Contrast (02/25/2013 6:27 PM PDT) + + | Specimen | [...]
--- OUTSIDE RECORDS SUMMARY | ~2019-07-18 | XMS | Encounter Summary ---
Demographics + + + | Address | [address] | | | [place] [address] | + + + | Home Phone [...] | + + +---------+ + | Waleska Aebbe | ECON | Unknown | | + + +---------+ + | Jarad Abebe | ECON | Unknown | | + + +---------+ + | Daniele Whitten | ECON | Unknown | | + + +---------+ + Care Team Providers + +------+ + | Care Farm Equipment Maintenance Supervisor Name | Role | Phone | [...] Pharmacy | | | | | | [address] | | | | | | [place], | | | | | | [place] [address] | | | | | | [phone] | | | +--------+ + + + [...] | | | | [place], | | | | | | [place] [address] | | | | | | [phone] | | | | | | | | +--------+ + + + + | 06/18/ | Procedure | Surgery | | | | 2020 | Pass | | | | +--------+ + + + + documented as of this encounter Visit Diagnoses Not on filedocumented in this encounter"
--- OUTSIDE RECORDS SUMMARY | ~2019-07-18 | XMS | Encounter Summary ---
Demographics + + + | Address | [address] | | | [place] [address] | + + + | Home Phone | | + + + | Preferred Language | Unknown | + + + | Marital Status | | + + + | Synagogue Affiliation | Unknown | + + + | Race | Unknown | + + + | Ethnic Group | Unknown | + + + Author + + + | Author | [facility] | | | and [place] | + + + | Organization | [facility] | | [...] Providers + +------+ + | Care Food Service Agent Name | Role | Phone | + +------+ + | Litzy Castillo MD | PCP | | + +------+ + Reason for Visit +--------+ + | Reason | Comments | +--------+ + | Other | Telemedicine [facility] | +--------+ + Encounter Details +--------+ + + + + | Date | Type | Department | Care Team | Description | +--------+ + + + + | 07/19/ | Documentati | [facility] | Deloris Seo | Other (Telemedicine | | 2018 | on | [facility] | TERRY Pacheco | [facility] St[facility]) | | | | MEDICAL CLIN[facility] [address] | | | | | | [address] [facility], | | | | | | [place] [address] | | | | | | [phone] | | | +--------+ + + + [...] documented as of this encounter Progress Notes Deloris Seo, TERRY - 07/19/2018 1:42 PM PSTPt. here for Telemedicine appointment with Dr. Minor, Neurologist, [facility]. Pt. is seeking pre-approval for back surgery at [facility] to relieve pain. Was advised to have neuro consult due to stro ke history. Dr. Minor is referring pt. to Dr. Jerry Shelton, opthalmologist in [place], for eval. of unilateral vision loss prior to surgery. Also requests CT and records of current cholestr ol level prior to surgery. Deloris Seo RN P M PSTdocumented in this encounter Plan of Treatment +--------+---------+ + + + | Date | Type | Specialty | Care Team | Description | +--------+---------+ + + + | 09/08/ | Office | Cardiology | Christine Ortega | | | 2019 | Visit | | [address] | | | | | | [address] | | | | | | [place] [address] | | | | | | [phone] | | | | | | | | +--------+---------+ + + + documented as of this encounter Visit Diagnoses Not on filedocumented in this encounter"
--- OUTSIDE RECORDS SUMMARY | ~2019-07-18 | XMS | Encounter Summary ---
Demographics + + + | Address | [address] | | | [place] [address] | + + + | Home Phone [...] Team Providers + +------+ + | Care Die Storage Worker Name | Role | Phone | + +------+ + PCP | Unavailable | + +------+ + Encounter Details +--------+ + + + + | Date | Type | Department | Care Team | Description | +--------+ + + + + | 03/20/ | Hospital | [facility] | Christoph Lipscomb | | | 2011 | Encounter | HOSPITAL [facility] | MD [address] | | | | | CENTER [address] | [address] | | | | | [address] [place] | [place] [address] | | | | | [address] | [phone] | | | | | [phone] | | | +--------+ + + + [...] | | | | | [place] [address] | | | | | | [phone] | | | | | | | | +--------+---------+ + + + documented as of this encounter Visit Diagnoses Not on filedocumented in this encounter"
--- OUTSIDE RECORDS SUMMARY | ~2019-07-18 | XMS | Encounter Summary ---
Demographics + + + | Address | [address] | | | [place] [address] | + + + | Home Phone | | + + + | Preferred Language | Unknown | + + + | Marital Status | | + + + | Yazidi Affiliation | Unknown | + + + | Race | Unknown | + + + | Ethnic Group | Unknown | + + + Author + + + | Author | [facility] | | | and [place] | + + + | Organization | [facility] | | | [...] Team Providers + +------+ + | Care Physical Geographer Name | Role | Phone | + +------+ + | Litzy Castillo MD | PCP | | + +------+ + Encounter Details +--------+ + + + + | Date | Type | Department | Care Team | Description | +--------+ + + + + | 08/28/ | Hospital | [facility] | Conversion | Pain | | 2019 | Encounter | CONVERSION [address] | Transaction, | | | | | [address] | Provider Unknown | | | | | [place], [place] | [phone] | | | | | [address] | | | | | | [phone] | | | +--------+ + + + [...] | | | | | | [address] | | | | | | [place] [address] | | | | | | [phone] | | | | | | | [...]
--- OUTSIDE RECORDS SUMMARY | ~2019-07-18 | XMS | Encounter Summary ---
Demographics + + + | Address | [address] | | | [place] [address] | + + + | Home Phone [...] Providers + +------+ + | Care General Matcher Name | Role | Phone | + +------+ + | Litzy Castillo MD | PCP | | + +------+ + Encounter Details +--------+ + + + + | Date | Type | Department | Care Team | Description | +--------+ + + + + | 08/19/ | Telephone | Spine Center at | Jarrod Barrett MD | | | 2018 | | [facility] [address] | [address] | | | | | [place] Mailcode: | [place], | | | | | [facility] | [place] [address] | | | | | and [place], | [phone] | | | | | [address] | | | | | | [place], [place] | | | | | | [address] | | | | | | [phone] | | | +--------+ + + + [...] 2020 | Encounter | | [address] | | | | | | Ana Art [facility] | | | | | | [place] [address] | | | | | | [phone] | | | | | | | | +--------+ + + + + | 06/18/ | Procedure | Surgery | | | | 2020 | Pass | | | | +--------+ + + + + documented as of this encounter Visit Diagnoses Not on filedocumented in this encounter"
--- OUTSIDE RECORDS SUMMARY | ~2019-07-18 | XMS | Encounter Summary ---
Demographics + + + | Address | [address] | | | [place] [address] | + + + | Home Phone [...] Team Providers + +------+ + | Care Computer Network Engineer Name | Role | Phone | [...] | | endarterecto | [address] | [facility] | | | | | my | [address] | Rd Mailcode: | | | | | Procedures | [facility] | [address] | | | | | VASC LAB | Road | Physician's | | | | | CAROTID | [place], [place] | Pavilion | | | | | DUPLEX RIGHT | [address] | [place], [place] | | | | | | Phone: | [address] | | | | | | [phone] | Phone: | | | | | | Fax: | [phone] | | | | | | [phone] | Fax: | | | | | | | [phone] | +--------+--------+ + + + + Reason [...] | | [address] | [address] | (Primary Dx); | | | | [place] Mailcode: | [place], [place] | Unspecified | | | | [address] Physician's | [address] | transient cerebral | | | | [place], | [phone] | ischemia | | | | [place] [address] | | | | | | [phone] | | | +--------+---------+ + + + [...] management plan. PATRICK NUNEZ MD VASCULAR SURGERY [address] [place] [address] Mailcode: [facility] [place] [address] Gus Gan MD - 12/03/2009 1:58 PM PDTI saw and evaluated the patient. I agree with the findings and the plan of care as documented in the resident s note. Her follow up duplex is fine and w e will see her in one year GUS BARROSO MD VASCULAR SURGERY [address] [place] [address] Mailcode: [place] [place] [address] documented in this en counter Plan of Treatment +--------+ + + + + | Date | Type | Specialty | Care Team | Description | +--------+ + + + + | 06/17/ | Hospital | Adult Acute Care | Jarrod Barrett MD | | | 2019 | Encounter | | [address] | | | | | | [place], | | | | | | [place] [address] | | | | | | [phone] | | | | | | | | +--------+ + + + + | 06/18/ | Procedure | Surgery | | | | 2019 | Pass | | | | +--------+ + + + + documented as of this encounter Results [facility] CAROTID DUPLEX RIGHT (12/03/2009 2:49 PM PDT) + + + + + + | Component | Value | Ref Range | Performed | Pathologist | | | | | At | Signature | + + + + + + | VASC LAB | Med Rec No: | | | | | CAROTID | [id number] Name: | | | | | DUPLEX | DOV SUN Birthday: | | | | | RIGHT | 1955 Sex: F | | | | | | Alias: Patient Location: | | | | | | [id number]: | | | | | | Outpatient [...] # | | | | | | [id number] | | | | | | RESULT:CEREBROVASCULAR [...] | | + +---------+ + + | [facility] DEPARTMENT OF | | | | | RADIOLOGY | | | | + +---------+ + + documented in this encounter Visit Diagnoses + + | Diagnosis | + + | S/P carotid endarterectomy - Primary Other postprocedural status | + + | Unspecified transient cerebral ischemia | + + documented in this encounter
--- OUTSIDE RECORDS SUMMARY | ~2019-07-18 | XMS | Encounter Summary ---
Demographics + + + | Address | [address] | | | [place] [address] | + + + | Home Phone [...] Team Providers + +------+ + | Care Scrap Materials Buyer Name | Role | Phone | + [...] Other (surgical | | 2019 | | [facility] [address] | [address] | clearance ) | | | | [place] Mailcode: | [place], | | | | | [facility] | [place] [address] | | | | | and [place], | [phone] | | | | | [facility] [address] | | | | | | [place], [place] | | | | | | [address] | | | | | | [phone] | | | +--------+ + + + [...] | | | | | [place], | | | | | | [place] [address] | | | | | | [phone] | | | | | | | | +--------+ + + + + | 06/18/ | Procedure | Surgery | | | | 2019 | Pass | | | | +--------+ + + + + documented as of this encounter Visit Diagnoses Not on filedocumented in this encounter"
--- OUTSIDE RECORDS SUMMARY | ~2019-07-18 | XMS | Encounter Summary ---
Demographics + + + | Address | [address] | | | [place] [address] | + + + | Home Phone | | + + + | Preferred Language | Unknown | + + + | Marital Status | | + + + | Orthodox Affiliation | Unknown | + + + | Race | Unknown | + + + | Ethnic Group | Unknown | + + + Author + + + | Author | [facility] | | | and [place] | + + + | Organization | [facility] | | | [...] Team Providers + +------+ + | Care Oceanic Sciences Professor Name | Role | Phone [...] | | | | [address] | [facility], | | | | | [place], [place] | [place] [address] | | | | | [address] | [phone] | | | | | [phone] | | | +--------+ + + + [...] [address] | | | | | | [place] [address] | | | | | | [phone] | | | | | | | | +--------+---------+ + + + documented as of this encounter Visit Diagnoses Not on filedocumented in this encounter"
--- OUTSIDE RECORDS SUMMARY | ~2019-07-18 | XMS | Encounter Summary ---
Demographics + + + | Address | [address] | | | [place] [address] | + + + | Home Phone | | + + + | Preferred Language | Unknown | + + + | Marital Status | | + + + | Oriental Orthodox Affiliation | Unknown | + + + | Race | Unknown | + + + | Ethnic Group | Unknown | + + + Author + + + | Author | [facility] | | | and [place] | + + + | Organization | [facility] | [...] Providers + +------+ + | Care Customer Security Clerk Name | Role | Phone | + +------+ + PCP | Unavailable | + +------+ + Encounter Details +--------+ + + + + | Date | Type | Department | Care Team | Description | +--------+ + + + + | 07/23/ | Hospital | [facility] | Matheus Corado MD | | | 2012 | Encounter | [facility] | [address] | | | | | MEDICAL CLINIC [address] | [place], [place] | | | | | [address], | [address] | | | | | [place] [address] | | | | | | [phone] | | | +--------+ + + + [...] | | | | | [place] [address] | | | | | | [phone] | | | | | | | | +--------+---------+ + + + documented as of this encounter Visit Diagnoses Not on filedocumented in this encounter"
--- OUTSIDE RECORDS SUMMARY | ~2019-07-18 | XMS | Encounter Summary ---
Demographics + + + | Address | [address] | | | [place] [address] | + + + | Home Phone | | + + + | Preferred Language | Unknown | + + + | Marital Status | Single | + + + | Latter-Day Affiliation | NON | + + + [...] Team Providers + +------+ + | Care Honing Machine Try Out Setter Name | Role | Phone | + [...] Refill Request | | 2019 | | [facility] [address] | [address] | (corrected rx order | | | | Ave Mailcode: CH8N | Ana [facility], | ) | | | | [facility] | [place] [address] | | | | | and [facility], | [phone] | | | | | [facility] | | | | | | [place], [place] | | | | | | [address] | | | | | | [phone] | | | +--------+ + + + [...] | | | | [place], | | | | | | [place] [address] | | | | | | [phone] | | | | | | | | +--------+ + + + + | 06/18/ | Procedure | Surgery | | | | 2019 | Pass | | | | +--------+ + + + + documented as of this encounter Visit Diagnoses Not on filedocumented in this encounter"
--- OUTSIDE RECORDS SUMMARY | ~2019-07-18 | XMS | Encounter Summary ---
Demographics + + + | Address | [address] | | | [place] [address] | + + + | Home Phone | | + + + | Preferred Language | Unknown | + + + | Marital Status | | + + + | Buddhism Affiliation | Unknown | + + + | Race | Unknown | + + + | Ethnic Group | Unknown | + + + Author + + + | Author | [facility] | | | and [place] | + + + | Organization | [facility] | | [...] Team Providers + +------+ + | Care Deburring And Tooling Machine Operator Name | Role | Phone | + +------+ + | Litzy Castillo MD | PCP | | + +------+ + Encounter Details +--------+ + + + + | Date | Type | Department | Care Team | Description | +--------+ + + + + | 04/08/ | Orders Only | [facility] | Allison Suresh DO | Peripheral vascular | | 2019 | | CARDIOLOGY [place] | [address] | disease (HCC); | | | | [address] | [place] [place], [place] | Cerebral | | | | [address] | [address] | atherosclerosis | | | | [place] | | | | | | [address] | | | | | | [phone] | | | +--------+ + + + [...] +---------+ + | Yes | | | Alcoholic | | | | | Drinks/day: BEER, | | | | | everyday. | + + +---------+ + + [...] | | | | | [place] [address] | | | | | | [phone] | | | | | | | | +--------+---------+ + + + documented as of this encounter Visit Diagnoses + + | Diagnosis | + + | Peripheral vascular disease (HCC) Peripheral vascular disease, unspecified | + + | Cerebral atherosclerosis | + + documented in this encounter"
--- OUTSIDE RECORDS SUMMARY | ~2019-07-18 | XMS | Encounter Summary ---
Demographics + + + | Address | [address] | | | [place] [address] | + + + | Home Phone [...] + + + | Author | [facility] | + + + | Organization | [facility] | + + + | Address [...] Team Providers + +------+ + | Care Senior Director Marketing Name | Role | Phone | + +------+ + | Litzy Castillo MD | PCP | | + +------+ + Encounter Details +--------+ + + + + | Date | Type | Department | Care Team | Description | +--------+ + + + + | 12/16/ | Painter Aircraft | Spine Center at | Tara Glass | | | 2019 | | [facility] [address] | [place] [address] | | | | | [address] Mailcode: | [address] | | | | | [facility] | [place], [place] | | | | | [place], | [address] | | | | | [place] [address] | [phone] | | | | | [place], [place] | | | | | | [address] | | | | | | [phone] | | | +--------+ + + + [...] | | | | | [place], | | | | | | [place] [address] | | | | | | [phone] | | | | | | | | +--------+ + + + + | 06/18/ | Procedure | Surgery | | | | 2020 | Pass | | | | +--------+ + + + + documented as of this encounter Visit Diagnoses Not on filedocumented in this encounter"
--- OUTSIDE RECORDS SUMMARY | ~2019-07-18 | XMS | Encounter Summary ---
Demographics + + + | Address | [address] | | | [place] [address] | + + + | Home Phone [...] Team Providers + +------+ + | Care Truckload Owner Operator Name | Role | Phone | [...] | | | | [place], [place] | [address] | | | | | [address] | [phone] | | | | | [phone] | | | +--------+ + + + [...] | | | | | [place] [address] | | | | | | [phone] | | | | | | | | +--------+---------+ + + + documented as of this encounter Visit Diagnoses Not on filedocumented in this encounter"
--- OUTSIDE RECORDS SUMMARY | ~2019-07-18 | XMS | Encounter Summary ---
Demographics + + + | Address | [address] | | | [place] [address] | + + + | Home Phone | | + + + | Preferred Language | Unknown | + + + | Marital Status | | + + + | Christianity Affiliation | Unknown | + + + [...] Team Providers + +------+ + | Care Video System Repairer Name | Role | Phone | + +------+ + PCP | Unavailable | + +------+ + Encounter Details +--------+ + + + + | Date | Type | Department | Care Team | Description | +--------+ + + + + | 01/01/ | Hospital | [facility] | | | | 2011 | Encounter | MED CTR XRAY [address] | | | | | | [address] | | | | | | [place] [address] | | | | | | [phone] | | | +--------+ + + + [...] MARCANO | | | | | | [place] [address] | | | | | | [phone] | | | | | | | [...] Performed At | + + + | [facility] Diagnostic Imaging Department | [facility] | | [address] [facility] | [facility] | | LOWER EXTREMITY ARTERIAL | DIAG [...] Transcribed Date/Time: | | | 01/02/2012 13:48 Media Relations Director: <Electronically Signed | | | by Jared Jauregui MD> 01/03/12 0814 | | + + + + + | Procedure Note | + + | Zak Ortiz - 10/27/2013 7:17 AM [facility] | | Diagnostic Imaging Department | | [address] [facility] | | | | | | [...] | Transcribed Date/Time: 01/02/2012 13:48 | | Media Relations Director: | | <Electronically Signed by Jared Jauregui MD> 01/03/12 0814 | + + + +---------+ + + | Performing | Address | City/State/Zipcode | Phone Number | | Organization | | | | + +---------+ + + | [facility] | | | | | [facility] | | | | + +---------+ + + documented in this encounter Visit Diagnoses Not on filedocumented in this encounter"
--- OUTSIDE RECORDS SUMMARY | ~2019-07-18 | XMS | Encounter Summary ---
Demographics + + + | Address | [address] | | | [place] [address] | + + + | Home Phone [...] Author + + + | Author | [facility] | + + + | Organization | [facility] | + + + | Address [...] Team Providers + +------+ + | Care Mobile Equipment Mechanic Name | Role | Phone | + +------+ + | Heide Bhatti | PCP | | + +------+ + Encounter Details +--------+ + + + + | Date | Type | Department | Care Team | Description | +--------+ + + + + | 05/17/ | Hospital | Radiology/Imaging | Jarrod Barrett MD | | | 2018 | Encounter | Lab at [facility] [address] | [address] | | | | | [place] Mailcode: | [place], | | | | | [facility] | [place] [address] | | | | | and [place], | [phone] | | | | | [facility] | | | | | | Floor [place], [place] | | | | | | [address] | | | | | | [phone] | | | +--------+ + + + [...] | | | | | [place], | | | | | | [place] [address] | | | | | | [phone] | | | | | | | [...]
--- OUTSIDE RECORDS SUMMARY | ~2019-07-18 | XMS | Encounter Summary ---
Demographics + + + | Address | [address] | | | [place] [address] | + + + | Home Phone | | + + + | Preferred Language | Unknown | + + + | Marital Status | | + + + | Yazidism Affiliation | Unknown | + + + | Race | Unknown | + + + | Ethnic Group | Unknown | + + + Author + + + | Author | [facility] | | | and [place] | + + + | Organization | [facility] | | | [...] Team Providers + +------+ + | Care Sprinkling System Installer Name | Role | Phone | + [...] Provider Unknown | | | | | [place], [place] | [phone] | | | | | [address] | | | | | | [phone] | | | +--------+ + + + [...] MARCANO | | | | | | [place] [address] | | | | | | [phone] | | | | | | | [...]
--- OUTSIDE RECORDS SUMMARY | ~2019-07-18 | XMS | Encounter Summary ---
Demographics + + + | Address | [address] | | | [place] [address] | + + + | Home Phone [...] Team Providers + +------+ + | Care Education Administrator Name | Role | Phone | + +------+ + | Litzy Castillo MD | PCP | | + +------+ + Encounter Details +--------+ + + + + | Date | Type | Department | Care Team | Description | +--------+ + + + + | 08/27/ | Hospital | [facility] GENER[facility] IP | Conversion | Diagnosis unknown | | 2019 | Encounter | [address]VERSION [address] | Transaction, | | | | [address] | Provider Unknown | | | | | [place], [place] | [phone] | | | | | [address] | | | | | | [phone] | | | +--------+ + + + [...] MARCANO | | | | | | [place] [address] | | | | | | [phone] | | | | | | | [...]
--- OUTSIDE RECORDS SUMMARY | ~2019-07-18 | XMS | Encounter Summary ---
Demographics + + + | Address | [address] | | | [place] [address] | + + + | Home Phone [...] Team Providers + +------+ + | Care Api Architect Name | Role | Phone | + +------+ + | Litzy Castillo MD | PCP | | + +------+ + Encounter Details +--------+ + + + + | Date | Type | Department | Care Team | Description | +--------+ + + + + | 08/28/ | Hospital | [facility] | Conversion | Pain | | 2019 | Encounter | [address]VERSION [address] | Transaction, | | | | | [address] | Provider Unknown | | | | | [place], [place] | [phone] | | | | | [address] | | | | | | [phone] | | | +--------+ + + + [...] MARCANO | | | | | | [place] [address] | | | | | | [phone] | | | | | | | [...]
--- OUTSIDE RECORDS SUMMARY | ~2019-07-18 | XMS | Encounter Summary ---
Demographics + + + | Address | [address] | | | [place] [address] | + + + | Home Phone [...] Team Providers + +------+ + | Care Clipper Counters Name | Role | Phone | + [...] Pharmacy | | | | | | [address] | | | | | | [place], | | | | | | [place] [address] | | | | | | [phone] | | | +--------+ + + + [...] | | | | | [place], | | | | | | [place] [address] | | | | | | [phone] | | | | | | | | +--------+ + + + + | 06/18/ | Procedure | Surgery | | | | 2020 | Pass | | | | +--------+ + + + + documented as of this encounter Visit Diagnoses Not on filedocumented in this encounter"
--- OUTSIDE RECORDS SUMMARY | ~2019-07-18 | XMS | Encounter Summary ---
Demographics + + + | Address | [address] | | | [place] [address] | + + + | Home Phone [...] Team Providers + +------+ + | Care Receiving And Processing Supervisor Name | Role | Phone | + +------+ + | Heide Bhatti | PCP | | + +------+ + Encounter Details +--------+ + + + + | Date | Type | Department | Care Team | Description | +--------+ + + + + | 10/01/ | Telephone | [facility] | Iv[place], | | | 2011 | | [facility] | MD Marichuy | | | | | [facility] | | | | | | [address] | | | | | | [place] Mailcode: | | | | | | [address] [place] | | | | | | [facility] | | | | | | floor [place], [place] | | | | | | [address] | | | | | | [phone] | | | +--------+ + + + [...] | | | | | [place] [facility] | | | | | | [place] [address] | | | | | | [phone] | | | | | | | | +--------+ + + + + | 06/18/ | Procedure | Surgery | | | | 2019 | Pass | | | | +--------+ + + + + documented as of this encounter Visit Diagnoses Not on filedocumented in this encounter"
--- OUTSIDE RECORDS SUMMARY | ~2019-07-18 | XMS | Encounter Summary ---
Demographics + + + | Address | [address] | | | [place] [address] | + + + | Home Phone [...] Team Providers + +------+ + | Care Salvage Cutter Name | Role | Phone | + +------+ + | Litzy Castillo MD | PCP | | + +------+ + Encounter Details +--------+ + + + + | Date | Type | Department | Care Team | Description | +--------+ + + + + | 08/27/ | Hospital | [facility] | Conversion | Diagnosis unknown | | 2019 | Encounter | [address]VERSION [address] | Transaction, | | | | | [address] | Provider Unknown | | | | | [place], [place] | [phone] | | | | | [address] | | | | | | [phone] | | | +--------+ + + + [...] MARCANO | | | | | | [place] [address] | | | | | | [phone] | | | | | | | [...]
--- OUTSIDE RECORDS SUMMARY | ~2019-07-18 | XMS | Encounter Summary ---
Demographics + + + | Address | [address] | | | [place] [address] | + + + | Home Phone | | + + + | Preferred Language | Unknown | + + + | Marital Status | | + + + | Pentecostal Affiliation | Unknown | + + + | Race | Unknown | + + + | Ethnic Group | Unknown | + + + Author + + + | Author | [facility] | | | and [place] | + + + | Organization | [facility] | | [...] Team Providers + +------+ + | Care Sample Case Porter Name | Role | Phone | + +------+ + | Litzy Castillo MD | PCP | | + +------+ + Encounter Details +--------+ + + + + | Date | Type | Department | Care Team | Description | +--------+ + + + + | 08/28/ | Hospital | [facility] | Conversion | Pain | | 2019 | Encounter | [address]VERSION [address] | Transaction, | | | | | [address] | Provider Unknown | | | | | [place], [place] | [phone] | | | | | [address] | | | | | | [phone] | | | +--------+ + + + [...] MARCANO | | | | | | [place] [address] | | | | | | [phone] | | | | | | | [...]
--- OUTSIDE RECORDS SUMMARY | ~2019-07-18 | XMS | Encounter Summary ---
Demographics + + + | Address | [address] | | | [place] [address] | + + + | Home Phone [...] Providers + +------+ + | Care Radio Engineer Name | Role | Phone | [...] | | | | [address] | [facility], | | | | | [place], [place] | [place] [address] | | | | | [address] | [phone] | | | | | [phone] | | | +--------+ + + + [...] MARCANO | | | | | | [place] [address] | | | | | | [phone] | | | | | | | | +--------+---------+ + + + documented as of this encounter Visit Diagnoses Not on filedocumented in this encounter"
--- OUTSIDE RECORDS SUMMARY | ~2019-07-18 | XMS | Encounter Summary ---
Demographics + + + | Address | [address] | | | [place] [address] | + + + | Home Phone | | + + + | Preferred Language | Unknown | + + + | Marital Status | | + + + | Jew Affiliation | Unknown | + + + | Race | Unknown | + + + | Ethnic Group | Unknown | + + + Author + + + | Author | [facility] | | | and [place] | + + + | Organization | [facility] | | | and [...] Team Providers + +------+ + | Care Sock Drier Name | Role | Phone | + +------+ + PCP | Unavailable | + +------+ + Encounter Details +--------+ + + + + | Date | Type | Department | Care Team | Description | +--------+ + + + + | 07/20/ | Hospital | [place] [facility] | Matheus Corado MD | | | 2011 | Encounter | H[facility] | [address] | | | | | [address] | [place], [place] | | | | | [place], [place] | [address] | | | | | [address] | | | | | | [phone] | | | +--------+ + + + [...] | | | | | [place] [address] | | | | | | [phone] | | | | | | | | +--------+---------+ + + + documented as of this encounter Visit Diagnoses Not on filedocumented in this encounter"
--- OUTSIDE RECORDS SUMMARY | ~2019-07-18 | XMS | Encounter Summary ---
Demographics + + + | Address | [address] | | | [place] [address] | + + + | Home Phone [...] Team Providers + +------+ + | Care Commercial Title Examiner Name | Role | Phone | [...] | Post-discharge | | 2019 | | [facility] [address] | [address] | follow-up (s/p | | | | Ave Mailcode: | [place], | lumbar laminectomy | | | | [place] for [facility] | [place] [address] | (dos: 12/14/18)) | | | | [place], | [phone] | | | | | [facility] [address] | | | | | | [place], [place] | | | | | | [address] | | | | | | [phone] | | | +--------+ + + + [...] | | | | | [place], | | | | | | [place] [address] | | | | | | [phone] | | | | | | | | +--------+ + + + + | 06/18/ | Procedure | Surgery | | | | 2019 | Pass | | | | +--------+ + + + + documented as of this encounter Visit Diagnoses Not on filedocumented in this encounter"
--- OUTSIDE RECORDS SUMMARY | ~2019-07-18 | XMS | Encounter Summary ---
Demographics + + + | Address | [address] | | | [place] [address] | + + + | Home Phone | | + + + | Preferred Language | Unknown | + + + | Marital Status | | + + + | Yarsanism Affiliation | Unknown | + + + | Race | Unknown | + + + | Ethnic Group | Unknown | + + + Author + + + | Author | [facility] | | | and [place] | + + + | Organization | [facility] | | | [...] Team Providers + +------+ + | Care Desktop Support Manager Name | Role | Phone | + +------+ + | Litzy Castillo MD | PCP | | + +------+ + Encounter Details +--------+ + + + + | Date | Type | Department | Care Team | Description | +--------+ + + + + | 08/28/ | Hospital | [facility] | Conversion | Pain | | 2019 | Encounter | [address] | Transaction, | | | | | [address] | Provider Unknown | | | | | [place], [place] | [phone] | | | | | [address] | | | | | | [phone] | | | +--------+ + + + [...] | | | | | | [place] [address] | | | | | | [phone] | | | | | | | [...]
--- OUTSIDE RECORDS SUMMARY | ~2019-07-18 | XMS | Clinical Summary ---
Demographics + + + | Address | [address] | | | [place] [address] | + + + | Home Phone [...] Author + + + | Author | [facility] | + + + | Organization | [facility] | + + + | Address | [...] Team Providers + +------+ + | Care Truck Farmer Name | Role | Phone | + +------+ + | Litzy Castillo MD | PCP | | + +------+ + Source Comments CORDELIAMANUEL is fully live on both EpicCare Ambulatory and EpicCare InPatient.[facility] Allergies + + + + + + | Active Allergy | Reactions | Severity | Noted | Comments | | | | | Date | | + + + + + + | Celecoxib | Nausea and Vomiting | Medium | 03/03/20 | Patient could not | | | | | 19 | hold anything down. | | | | | | Patient got severely | | | | | | sick and couldn't | | | | | | eat anything without | | | | | | throwing up. | + + + + + + | Chlorhexidine | Rash | | 12/15/19 | "burning | | Towelette | | | 19 | sensation" | + + + + + + | Cilostazol | | | 12/11/19 | Extreme | | | | | 12 | sleepiness, caused | | | | | | pt to sleep for 20 | | | | | | hours straight. | + + + + + + | Tetracycline (Bulk) | Unknown | | 11/17/19 | | | | | | 10 | | + + + + + + | Tramadol | Unknown | | 05/17/20 | | | | | | 18 | | + + + + + + | Rofecoxib | Unknown | | 11/17/19 | | | | | | 10 | | + + + + + + Medications + + + +---------+------+------+-------+ | Medication | Sig | Dispensed | Refills | Star | End | Statu | | | | | | t | Date | s | | | | | | Date | | | + + + +---------+------+------+-------+ | ipratropium | Inhale 2 Puffs two | | 0 | | | Activ | | (ATROVENT HFA) 17 | times daily. | | | | | e | | mcg/Actuation | | | | | | | | Inhalation HFA | | | | | | | | Aerosol Inhaler | | | | | | | + + + +---------+------+------+-------+ | Albuterol 90 | Inhale 1-2 Puffs | | 0 | | | Activ | | mcg/Actuation | every four hours as | | | | | e | | Inhalation Aerosol | needed. | | | | | | + + + +---------+------+------+-------+ | gabapentin 300 mg | 600 mg three times | | 0 | 08/2 | | Activ | | oral capsule | daily. | | | 7/20 | | e | | | | | | 18 | | | + + + +---------+------+------+-------+ | valsartan 80 mg | 80 mg once daily. | | 0 | 07/0 | | Activ | | oral tablet | | | | 2/20 | | e | | | | | | 18 | | | + + + +---------+------+------+-------+ | levothyroxine 50 | Take 50 mcg by mouth | | 0 | | | Activ | | mcg oral tablet | before breakfast. | | | | | e | + + + +---------+------+------+-------+ | atenolol 100 mg | Take 100 mg by mouth | | 0 | | | Activ | | oral tablet | once daily. | | | | | e | + + + +---------+------+------+-------+ | aspirin EC 81 mg | Take 81 mg by mouth | | 0 | | | Activ | | oral tablet,delayed | once daily. | | | | | e | | release (DR/EC) | | | | | | | + + + +---------+------+------+-------+ | oxyCODONE | Take 1-2 tablets by | 60 | 0 | 04/2 | | Activ | | (immediate release) | mouth every four | tablet | | 5/20 | | e | | 5 mg oral tablet | hours as needed for | | | 19 | | | | | breakthrough pain. | | | | | | + + + +---------+------+------+-------+ +---+ + | | Additional | | | informationPatient | | | not taking. Reported | | | on 12/27/2018 1:55 | | | PM | +---+ + + + +--------+---+------+---+-------+ | ondansetron ODT 4 | Dissolve 1 tablet on | 20 | 0 | 04/2 | | Activ | | mg oral | tongue and swallow | tablet | | /20 | | e | | tablet,disintegratin | every eight hours as | | | 19 | | | | g | needed for | | | | | | | | nausea/vomiting. | | | | | | + + +--------+---+------+---+-------+ | | Take 1-2 tablets by | 50 | 0 | 05/0 | | Activ | | HYDROcodone-acetamin | mouth every six | tablet | | 1/20 | | e | | ophen (NORCO) 5-325 | hours as needed for | | | 19 | | | | mg oral tablet | moderate pain or | | | | | | | | severe pain. Not to | | | | | | | | exceed 6 in 24 | | | | | | | | hours/ n | | | | | | + + +--------+---+------+---+-------+ | ondansetron ODT 4 | Dissolve 1 tablet on | 20 | 1 | 05/0 | | Activ | | mg oral | tongue and swallow | tablet | | 1/20 | | e | | tablet,disintegratin | every eight hours as | | | 19 | | | | g | needed for | | | | | | | | nausea/vomiting. | | | | | | + + +--------+---+------+---+-------+ | rosuvastatin 40 mg | | | 0 | 07/1 | | Activ | | oral tablet | | | | 5/20 | | e | | | | | | 19 | | | + + +--------+---+------+---+-------+ Active Problems + + + | Problem | Noted Date | + + + | Lumbar radiculopathy | 12/27/2018 | + + + | TIA (transient ischemic attack) | 05/28/2011 | + + + | Claudication, intermittent | 05/28/2011 | + + + | S/P carotid endarterectomy | 12/03/2009 | + + + Social History + + [...] + + + + Plan of Treatment +--------+ + + + + | Date | Type | Specialty | Care Team | Description | +--------+ + + + + | 06/17/ | Hospital | Adult Acute Care | Jarrod Barrett MD | | | 2019 | Encounter | | [address] | | | | | | [place], | | | | | | [place] [address] | | | | | | [phone] | | | | | | | | +--------+ + + + + | 06/18/ | Procedure | Surgery | | | | 2019 | Pass | | | | +--------+ + + + + + + + + + | Health Maintenance | Due Date | Last Done | Comments | + + + + + | Pneumococcal | | 04/27/2018 | | | vaccination (2 of 2 | 8 | | | | - PPSV23) | | | | + + + + + | Influenza (Flu) | | | | | vaccination (#1) | 9 | | | + + + + + Results Not on filefrom Last 3 Months Insurance + +--------+ +--------+ + +--------+ | Payer | Benefi | Subscriber | Effect | Phone | Address | Type | | | t Plan | ID | komal | | | | | | / | | Dates | | | | | | Group | | | | | | + +--------+ +--------+ + +--------+ | MEDICARE | MEDICA | xxxxxxxxxxx | 01/23/20 | [phone] | [address] | | | RE A & | | 09-Pre | 1 | [address] | [address] | | | B | | sent | | [place] | | | | | | | | [address] | | + +--------+ +--------+ + +--------+ | MEDICAID [place] | OHP | xxxxxxxx | 08/24/19 | [phone] | [address] | [address] | | | PLUS | | 19-Pre | 6 | [phone] | id | | | OPEN | | sent | | [place], [place] | | | | CARD | | | | [phone] | | + +--------+ +--------+ + +--------+ + +--------+ +--------+ + + | Guarantor Name | Accoun | Relation to | Date | Phone | Billing Address | | | t Type | Patient | of | | | | | | | | | | + +--------+ +--------+ + + | Darcy Sun | Person | Self | [birth year] | [address] | | | al/Fam | | 1955 | [phone] | [address] [place] | | | [place] | | | 6 (Home) | [address] | + +--------+ +--------+ + + Advance Directives + + + + + | Type | Date Recorded | Patient | Explanation | | | | Jewelry Sales | | + + + + + | Advance | | | | | Directives and | | | | | Living Will | | | | + + + + + | Power of | | | | | Music Director | | | | + + + + + + + + + + | Code Status | Date | Date | Comments | | | Activated | Inactivated | | + + + + + | Full Code | 12/14/2018 | 12/14/2018 | | | | 10:12 AM | 11:01 PM | | + + + + + + + + +---+ | | | | | + + + +---+ | Full Code | 11/20/2009 | 11/21/2009 | | | | 5:24 PM | 6:51 PM | | + + + +---+ + + + +---+ | | | | | + + + +---+ | Full Code | 11/16/2009 | 11/20/2009 | | | | 4:35 AM | 5:24 PM | | + + + +---+
--- OUTSIDE RECORDS SUMMARY | ~2019-07-18 | XMS | Encounter Summary ---
Demographics + + + | Address | [address] | | | [place] [address] | + + + | Home Phone | | + + + | Preferred Language | Unknown | + + + | Marital Status | Single | + + + | Spiritism Affiliation | NON | + + + [...] Team Providers + +------+ + | Care Rendering Equipment Tender Name | Role | Phone | [...] [address] | | | | | [address] [place], | | | | | [place], | [place] [address] | | | | | [place] [address] | [phone] | | | | | [phone] | | | +--------+ + + + [...] grossly intact to commands Delt Bi Tri Proof Tester HF KE KF DF PF EHL Left [...] MD Neurosurgery Resident 3:30 PM, 12/14/2018 Pager #[phone] documented in this en counter Plan of Treatment +--------+ + + + + | Date | Type | Specialty | Care Team | Description | +--------+ + + + + | 06/17/ | Hospital | Adult Acute Care | Jarrod Barrett MD | | | 2019 | Encounter | | [address] | | | | | | [place], | | | | | | [place] [address] | | | | | | [phone] | | | | | | | [...] [facility] | [address] | [place], [place] | | | [address] | [address] | [address] | | | TESTS | | | | + + + + + PROCEDURE NOTE (12/14/2018 2:52 PM PDT) + + + | Narrative | Performed At | + + + | Jarrod Barrett MD 12/17/2018 10:29 AM Date of Service: | | | 12/14/2018 Attending Surgeon: Jarrod | | | MD [facility] Attendant(s): | | | Lilia De La Torre [...] | | 63-year-old female who presented to [facility] with low back | [...] predicted by the preoperative MRI. Using a Nahunta and curette, | | | this was carefully dissected free from the common dural tube and | | | resected. Using a Nahunta, we identified the right L5 pedicle and [...] | | | | | | y, [facility] & | | | | | | [facility] | | | | | | electronic [...] number | | | | | | [id number]. Spine, Right | | | | | [...] | | | | | determined by [facility] | | | | | | [...] [facility] | [address] | [place] [address] | | | PATHOLOGY | [address] [...] [facility] | [address] | [place] [address] | | | LUZ, ANJALI | [address] [...] [facility] | [address] | [place] [address] | | | SERVICES, CORE | [address] [...] | + + + + + | [facility] | [address] | [place] [address] | | | SERVICES, | [address] [...] | + + + + + | [facility] | [address] | [place] [address] | | | SERVICES, | [address] [...] 88 | 60 - 99 mg/dL | [facility] - | | | GLUCOSE, | [...] SMITH | [address] | [place], [place] | | | [place] [place] | [address] | [address] | | | TESTS | | | [...]
--- OUTSIDE RECORDS SUMMARY | ~2019-07-18 | XMS | Encounter Summary ---
Demographics + + + | Address | [address] | | | [place] [address] | + + + | Home Phone | | + + + | Preferred Language | Unknown | + + + | Marital Status | | + + + | Latter-Day Affiliation | Unknown | + + + [...] Team Providers + +------+ + | Care Wiring Mechanic Name | Role | Phone | [...] Provider Unknown | | | | | [place], [place] | [phone] | | | | | [address] | | | | | | [phone] | | | +--------+ + + + [...] MARCANO | | | | | | [place] [address] | | | | | | [phone] | | | | | | | [...]
--- OUTSIDE RECORDS SUMMARY | ~2019-07-18 | XMS | Encounter Summary ---
Demographics + + + | Address | [address] | | | [place] [address] | + + + | Home Phone | | + + + | Preferred Language | Unknown | + + + | Marital Status | | + + + | Restorationist Affiliation | Unknown | + + + | Race | Unknown | + + + | Ethnic Group | Unknown | + + + Author + + + | Author | [facility] | | | and [place] | + + + | Organization | [facility] | | | and [...] Team Providers + +------+ + | Care Orthotic Assistant Name | Role | Phone | + +------+ + | Litzy Castillo MD | PCP | | + +------+ + Encounter Details +--------+ + + + + | Date | Type | Department | Care Team | Description | +--------+ + + + + | 08/28/ | Hospital | [facility] | Conversion | Pain | | 2019 | Encounter | [address] | Transaction, | | | | | [address] | Provider Unknown | | | | | [place], [place] | [phone] | | | | | [address] | | | | | | [phone] | | | +--------+ + + + [...] MARCANO | | | | | | [place] [address] | | | | | | [phone] | | | | | | | [...]
--- OUTSIDE RECORDS SUMMARY | ~2019-07-18 | XMS | Encounter Summary ---
Demographics + + + | Address | [address] | | | [place] [address] | + + + | Home Phone | | + + + | Preferred Language | Unknown | + + + | Marital Status | | + + + | Adventism Affiliation | Unknown | + + + | Race | Unknown | + + + | Ethnic Group | Unknown | + + + Author + + + | Author | [facility] | | | and [place] | + + + | Organization | [facility] | | | [...] Team Providers + +------+ + | Care Engagement Executive Name | Role | Phone | + +------+ + | Litzy Castillo MD | PCP | | + +------+ + Encounter Details +--------+ + + + + | Date | Type | Department | Care Team | Description | +--------+ + + + + | 08/28/ | Hospital | [facility] | Conversion | Pain | | 2019 | Encounter | [address] | Transaction, | | | | | [address] | Provider Unknown | | | | | [place], [place] | [phone] | | | | | [address] | | | | | | [phone] | | | +--------+ + + + [...] MARCANO | | | | | | [place] [address] | | | | | | [phone] | | | | | | | [...]
--- OUTSIDE RECORDS SUMMARY | ~2019-07-18 | XMS | Encounter Summary ---
Demographics + + + | Address | [address] | | | [place] [address] | + + + | Home Phone [...] Team Providers + +------+ + | Care Glaucoma Specialist Name | Role | Phone | [...] | | | | stenosis of | [place], [place] | | | | | | lumbar | [address] | | | | | | region with | Phone: | | | | | | radiculopath | [phone] | | | | | | y | Fax: | | | | | | Procedures | [phone] | | | | | | PHYSICAL [...] | | Ave Mailcode: | [place], | | | | | [facility] | [place] [address] | | | | | and [place], | [phone] | | | | | [facility] [address] | | | | | | [place], [place] | | | | | | [address] | | | | | | [phone] | | | +--------+ + + + [...] | | | | | [place] [address] [place], | | | | | | [place] [address] | | | | | | [phone] | | | | | | | [...]
--- OUTSIDE RECORDS SUMMARY | ~2019-07-18 | XMS | Encounter Summary ---
Demographics + + + | Address | [address] | | | [place] [address] | + + + | Home Phone [...] Team Providers + +------+ + | Care Frozen Yogurt Maker Name | Role | Phone | [...] | lumbar | [place] | [facility] | | | | | region with | Rd | Rd [place], | | | | | neurogenic | [place], [place] | [place] | | | | | claudication | [address] | [address] | | | | | | Phone: | Phone: | | | | | Radiculopath | [phone] | [phone] | | | | | y, lumbar | Fax: | Fax: | | | | | region | [phone] | [phone] | | | | | Procedures | | | | | | | REQUEST TO | | | | | | | SURGERY | | | | | | | ROAD BOSS | | | | | | | [place] | | | | | | | LAMINEC/FACE | | | | | | | TECT/FORAMIN | | | | | | | ,LUMBAR [place] | | | | | | | LAMINEC/FACE | | | | | | | TECT/FORAMIN | | | | | | | ,EACH ADDNL | | | | | | | [place] | | | | | | | [...] radiculopath | [address] | [address] [facility] | | | | | y | [facility] | [facility] | | | | | Procedures | Rd | Rd [place], | | | | | EMG/NERVE | [place], [place] | [place] | | | | | CONDUCTION | [address] | [address] | | | | | STUDIES - | Phone: | Phone: | | | | | ORTHO | [phone] | [phone] | | | | | | Fax: | Fax: | | | | | | [phone] | [phone] | +--------+--------+ + + + + Reason [...] | | | | region | [place] [address] | [address] | | | | | | Phone: | Phone: | | | | | | [phone] | [phone] | | | | | | Fax: | Fax: | | | | | | [phone] | [phone] | +--------+--------+ + + + + Encounter Details +--------+---------+ + + + | Date | Type | Department | Care Team | Description | +--------+---------+ + + + | 05/17/ | Office | [facility] | Jarrod Barrett MD | Lumbar radiculopathy | | 2018 | Visit | [facility] [address] | [address] | (Primary Dx); Back | | | | Ave Mailcode: | [address] [place], | pain, unspecified | | | | [place] [facility] | [place] [address] | back location, | | | | and Healing, | [phone] | unspecified back | | | | Building [address] | | pain laterality, | | | | [place], [place] | | unspecified | | | | [address] | | chronicity; Spinal | | | | [phone] | | stenosis of lumbar | | [...] Barrett MD - 05/17/2018 3:50 PM PDT [facility] Department of Neurological Surgery Referring Provider: SHAYE Wheat [address] [address] Chief Complaint: Patient presents with: New Patient [...] with prior physical therapy. She has tried cardiac care unit nurse without sustaine d relief. She has not [...] occlusion, left Carotid stenosis, right Claudication, intermittent ([facility]) 05/28/2011 HTN (hypertension) Hyperlipidemia Lumbago PAD (peripheral artery disease) ([facility]) Personal history of tobacco use [...] evidence of radiculopathy. She a nd her food service tray attendant had several questions all of which were answered. She has my office number and will call us in the interim with any additional concerns. I spent 45 minutes hihy-se-rxvk with the patient. I spent more than 50% of this visit in co ordination of care and counseling in which we discussed diagnosis, treatment, imaging studie s and follow-up. Jarrod Barrett M.D. [facility] Department of Neurological Surgery [address] [place] [address] documented in this enco unter Plan of Treatment +--------+ + + + + | Date | Type | Specialty | Care Team | Description | +--------+ + + + + | 06/17/ | Hospital | Adult Acute Care | Jarrod Barrett MD | | | 2019 | Encounter | | [address] | | | | | | [place], | | | | | | [place] [address] | | | | | | [phone] | | | | | | | [...] + + + X-RAY SCOLI SPINE ENTR PSENCER AP &LAT (05/17/2018 1:06 PM PDT) + [...] Note | + -+ | Service Account, [facility] People Res In Interface - 05/17/2018 1:21 PM [...]
--- OUTSIDE RECORDS SUMMARY | ~2019-07-18 | XMS | Encounter Summary ---
Demographics + + + | Address | [address] | | | [place] [address] | + + + | Home Phone | | + + + | Preferred Language | Unknown | + + + | Marital Status | | + + + | Mosque Affiliation | Unknown | + + + | Race | Unknown | + + + | Ethnic Group | Unknown | + + + Author + + + | Author | [facility] | | | and [place] | + + + | Organization | [facility] | | | [...] Team Providers + +------+ + | Care Brush Polisher Name | Role | Phone | [...] + + | 06/09/ | Office | [facility] | Christine Ortega | Peripheral vascular | | 2019 | Visit | CARDIOLOGY [place] | [address] | disease (HCC) | | | | [address] | [address] | (Primary Dx); | | | | [address] | [place] [address] | Essential | | | | [place], [place] | [phone] | hypertension; S/P | | | | [address] | | carotid | | | | [phone] | | endarterectomy; | | | | [...] you fasting labs to be done at [facility],and hang on to slips , [...] a patient of ,who is her primary lime trimmer, and last seen by her 019 Today, [...] coronary artery disease which was normal in [facility] in [place]. She rep orts she sustained damage to [...] outside for 10-15 minutes, and walk around [facility] as well. Her Plavix had been [...] her left side .. (Neurologist,Nayla Sandoval at [facility]) Denies history of seizures. Denies dizziness, syn [...] stopped with leg cramps. . Lives in [place] . Outpatient Medications Prior to Visit Medication [...] for: TOTEPI CARDIAC PROCEDURES/IMAGING Angiogram: Approximately 1994: ([facility]): Reported as normal by patient, eryn perez [...] T wave inversion aVL. Rate 119 bpm, [place] 178 ms, QRS 60 ms, QTC 458 ms, tracing personally reviewed by me EK06/09/2019: Normal sinus rhythm. Noted low voltage QRS leads I, aVL, V1 with T wave i nversions aVL and T wave flattening V1. Rate 61 bpm, [place] 186 ms, QRS 70 ms, QTC 396 [...] bpm, and may have had a previous [place]. I reviewed her EKG in detail with [...] may contain inadvertent rec ognition errors. [facility]2019 Eran wallis in this [...] MARCANO | | | | | | [place] [address] | | | | | | [phone] | | | | | | | [...] the | | | | PDT | ([facility]) Essential | results section. | | | | | hypertension S/P | | | | | | carotid | | | | | | endarterectomy | | | | | | Carotid occlusion, | | | | | | left Claudication, | | | | | | intermittent ([facility]) | | | | | | Other emphysema | | | | | | ([facility]) Tobacco | | | | [...] | | | | | by [facility] [place] Read Only, | | | | | | [facility] Brad ([id number]), | | | | | | video news editor Agustin Michel | | | | | | ([phone]) on 06/09/2019 | | | | | [...]
--- OUTSIDE RECORDS SUMMARY | ~2019-07-18 | XMS | Encounter Summary ---
Demographics + + + | Address | [address] | | | [place] [address] | + + + | Home Phone | | + + + | Preferred Language | Unknown | + + + | Marital Status | | + + + | Worship Affiliation | Unknown | + + + [...] Team Providers + +------+ + | Care Saw Edge Fuser Circular Name | Role | Phone | + +------+ + | Litzy Castillo MD | PCP | | + +------+ + Encounter Details +--------+ + + + + | Date | Type | Department | Care Team | Description | +--------+ + + + + | 08/28/ | Hospital | [facility] | Conversion | Pain | | 2019 | Encounter | [address] | Transaction, | | | | | [address] | Provider Unknown | | | | | [place], [place] | [phone] | | | | | [address] | | | | | | [phone] | | | +--------+ + + + [...] MARCANO | | | | | | [place] [address] | | | | | | [phone] | | | | | | | [...]
--- OUTSIDE RECORDS SUMMARY | ~2019-07-18 | XMS | Encounter Summary ---
Demographics + + + | Address | [address] | | | [place] [address] | + + + | Home Phone | | + + + | Preferred Language | Unknown | + + + | Marital Status | | + + + | Church Affiliation | Unknown | + + + | Race | Unknown | + + + | Ethnic Group | Unknown | + + + Author + + + | Author | [facility] | | | and [place] | + + + | Organization | [facility] | | [...] Providers + +------+ + | Care Landscape Drafter Name | Role | Phone | + [...] pain with | [address] | [place] [address] | | | | | right-sided | [place] | Phone: | | | | | sciatica | [address] | [phone] | | | | | DDD | Phone: | Fax: | | | | | (degenerativ | [phone] | [phone] | | | | | e disc | Fax: | | | | | | disease), | [phone] | | | | | | lumbar [...] | | | n | | [address] | | | | | | [address] | [place] | | | | | | Ave | [address] Phone: | | | | | | [place], | [phone] | | | | | | [place] | Fax: | | | | | | [address] | [phone] | | | | | | Phone: | | | | | | | [phone] | | | | | | | Fax: | | | | | | | [phone] | | +--------+--------+ + + + + Encounter Details +--------+---------+ + + + | Date | Type | Department | Care Team | Description | +--------+---------+ + + + | 03/17/ | Office | [facility] [place] | Bogdanofredericcz, | Chronic right-sided | | 2018 | Visit | PHYSIATRY [address] | [address] | low back pain with | | | | [place], | [address] [place], | right-sided | | | | [place] [address] | [place] [address] | sciatica; DDD | | | | [phone] | [phone] | (degenerative disc | | | | [...] in this encounter Patient Instructions Patient Instructions Syvlia Mcknight PA-C - 03/17/2018 9:20 AM PDT1) Epidural steroi d injection targeting spinal stenosis 2) Referral to [facility] neurosurgery 3) Follow up 3 weeks after [...] of blood sugars if you are diabetic. [facility] risk can lead to osteoporosis which is [...] of the procedure you must provide a delivery motorcycle driver to take you home. For all procedur es it is recommended that someone else drive you home. documented in this encounter Progress Notes Sylvia Mcknight PA-C - 03/17/2018 9:20 AM PDTFormatting of this note might be differe nt from the original. Sylvia Mcknight PA-C [address] [facility], [address] [place] [address] FAX: PHYSICAL MEDICINE AND REHABILITATION [...] for these complaints have included physical therapy, rn homecare, narcotic medication, anti-inflammatories, steroid injections, and muscle [...] has no apparent deficits with short or prison memory. She has appropriate fund of knowledge [...] PT (multiple sessions over the years) and rn homecare. Unfortunately she ronny nues to have significant [...] for the steroid injection. 3. Referral to [facility] neurosurgery to surgicla consideration. 4. Follow up [...] MARCANO | | | | | | [place] [address] | | | | | | [phone] | | | | | | | | +--------+---------+ + + + + + +--------+ + + | Name | Type | Priori | Associated Diagnoses | Order Schedule | | | | ty | | | + + +--------+ + + | AMB REFERRAL TO [facility] | Outpatient | Routin | Chronic | [...]
--- OUTSIDE RECORDS SUMMARY | ~2019-07-18 | XMS | Encounter Summary ---
Demographics + + + | Address | [address] | | | [place] [address] | + + + | Home Phone | | + + + | Preferred Language | Unknown | + + + | Marital Status | Single | + + + | Church Affiliation | NON | + + + [...] Team Providers + +------+ + | Care Prevention Coordinator Name | Role | Phone | [...] Refill Request | | 2019 | | [facility] [address] | [address] | (corrected rx order | | | | Ave Mailcode: CH[address]N | [place] [facility], | ) | | | | [facility] | [place] [address] | | | | | and [facility], | [phone] | | | | | [facility] | | | | | | [place], [place] | | | | | | [address] | | | | | | [phone] | | | +--------+ + + + [...] | | | | | [address] [place], | | | | | | [place] [address] | | | | | | [phone] | | | | | | | | +--------+ + + + + | 06/18/ | Procedure | Surgery | | | | 2019 | Pass | | | | +--------+ + + + + documented as of this encounter Visit Diagnoses Not on filedocumented in this encounter"
--- OUTSIDE RECORDS SUMMARY | ~2019-07-18 | XMS | Encounter Summary ---
Demographics + + + | Address | [address] | | | [place] [address] | + + + | Home Phone | | + + + | Preferred Language | Unknown | + + + | Marital Status | Single | + + + | Zoroastrian Affiliation | NON | + + + | Race | White | + + + | Ethnic Group | Not or | + + + Author + + + | Author | [facility] | + + + | Organization | [facility] | + + + | [...] Team Providers + +------+ + | Care Drawing Hand Name | Role | Phone | [...] Pharmacy | | | | | | [address] | | | | | | [place], | | | | | | [place] [address] | | | | | | [phone] | | | +--------+ + + + [...] | | | | | [address] [place], | | | | | | [place] [address] | | | | | | [phone] | | | | | | | | +--------+ + + + + | 06/18/ | Procedure | Surgery | | | | 2020 | Pass | | | | +--------+ + + + + documented as of this encounter Visit Diagnoses Not on filedocumented in this encounter"
--- OUTSIDE RECORDS SUMMARY | ~2019-07-18 | XMS | Encounter Summary ---
Demographics + + + | Address | [address] | | | [place] [address] | + + + | Home Phone | | + + + | Preferred Language | Unknown | + + + | Marital Status | | + + + | Pentecostal Affiliation | Unknown | + + + | Race | Unknown | + + + | Ethnic Group | Unknown | + + + Author + + + | Author | [facility] | | | and [place] | + + + | Organization | [facility] | | | and [...] Team Providers + +------+ + | Care Earth Sciences Professor Name | Role | Phone | + +------+ + | Litzy Csatillo MD | PCP | | + +------+ + Encounter Details +--------+ + + + + | Date | Type | Department | Care Team | Description | +--------+ + + + + | 08/28/ | Hospital | [facility] | Conversion | Pain | | 2019 | Encounter | [address] | Transaction, | | | | | [address] | Provider Unknown | | | | | [place], [place] | [phone] | | | | | [address] | | | | | | [phone] | | | +--------+ + + + [...] MARCANO | | | | | | [place] [address] | | | | | | [phone] | | | | | | | | +--------+---------+ + + + documented as of this encounter Procedures + +--------+ + + + | Procedure Name | Priori | Date/Time | Associated Diagnosis | Comments | | | ty | | | | + +--------+ + + + | XR SHOULDER LEFT 2 + | Routin | 09/17/2009 | | Results for this | | VW | e | 5:02 AM | | procedure are in the | | | | PST | | results section. | + +--------+ + + + documented in this encounter Results XR Shoulder Left 2 + Vw (09/17/2009 5:02 AM PST) + + | Specimen | [...]
--- OUTSIDE RECORDS SUMMARY | ~2019-07-18 | XMS | Encounter Summary ---
Demographics + + + | Address | [address] | | | [place] [address] | + + + | Home Phone | | + + + | Preferred Language | Unknown | + + + | Marital Status | | + + + | Confucianist Affiliation | Unknown | + + + | Race | Unknown | + + + | Ethnic Group | Unknown | + + + Author + + + | Author | [facility] | | | and [place] | + + + | Organization | [facility] | | [...] Team Providers + +------+ + | Care Resaw Machine Operator Name | Role | Phone [...] + + | 03/26/ | Telephone | [facility] [place] | Roxanna, | Medication Reaction | | 2017 | | PHYSIATRY [address] | [address] | | | | | [place], | [address] [facility], | | | | | [place] [address] | [place] [address] | | | | | [phone] | [phone] | | | | | | | [...] | | | | | [place] [address] | | | | | | [phone] | | | | | | | | +--------+---------+ + + + documented as of this encounter Visit Diagnoses Not on filedocumented in this encounter"
--- OUTSIDE RECORDS SUMMARY | ~2019-07-18 | XMS | Encounter Summary ---
Demographics + + + | Address | [address] | | | [place] [address] | + + + | Home Phone | | + + + | Preferred Language | Unknown | + + + | Marital Status | Single | + + + | Adventism Affiliation | NON | + + + [...] Team Providers + +------+ + | Care Risk Lead Name | Role | Phone | + [...] | | | | | CAROTID | [place], [place] | Pavilion | | | | | DUPLEX RIGHT | [address] | [place], [place] | | | | | | Phone: | [address] | | | | | | [phone] | Phone: | | | | | | Fax: | [phone] | | | | | | [phone] | Fax: | | | | | | | [phone] | +--------+--------+ + + + + Encounter [...] | | | | | | [place] [address] | | | | | | [phone] | | | +--------+ + + + [...] | | | | | [place] [address] [place], | | | | | | [place] [address] | | | | | | [phone] | | | | | | | [...] + + documented in this encounter Results [facility] CAROTID DUPLEX RIGHT (12/03/2009 2:49 PM PDT) + + + + + + | Component | Value | Ref Range | Performed | Pathologist | | | | | At | Signature | + + + + + + | VASC LAB | Med Rec No: | | | | | CAROTID | [id number] Name: | | | | | DUPLEX | DOV ALVARADO Birthday: | | | | | RIGHT | 1955 Sex: F | | | | | | Alias: Patient Location: | | | | | | [id number]: | | | | | | Outpatient [...] # | | | | | | [id number] | | | | | | RESULT:CEREBROVASCULAR [...]
--- OUTSIDE RECORDS SUMMARY | ~2019-07-18 | XMS | Clinical Summary ---
Demographics + + + | Address | [address] | | | [place] [address] | + + + | Home Phone | | + + + | Preferred Language | Unknown | + + + | Marital Status | | + + + | Confucianism Affiliation | Unknown | + + + | Race | Unknown | + + + | Ethnic Group | Unknown | + + + Author + + + | Author | [facility] | | | and [place] | + + + | Organization | [facility] | | | [...] Team Providers + +------+ + | Care Robotics Application Engineer Name | Role | Phone | [...] | | | | | [place] [address] | | | | | | [phone] | | | | | | | [...] the | | | | PDT | ([facility]) Essential | results section. | | | | | hypertension S/P | | | | | | carotid | | | | | | endarterectomy | | | | | | Carotid occlusion, | | | | | | left Claudication, | | | | | | intermittent ([facility]) | | | | | | Other emphysema | | | | | | ([facility]) Tobacco | | | [...] | | | | | by [facility] [place] Read Only, | | | | | | [facility] Raj (252), | | | | | | news editor Agustin Michel | | | | | | (757) on 06/09/2019 | | | | | [...] +--------+ +---------+--------+ | MEDICARE | MEDICA | [id number] | 01/23/20 | [phone] | | Medica | | | RE | | 09-Pre | 5 | | re | | | PART A | | sent | | | | | | AND B | | | | | | + +--------+ +--------+ +---------+--------+ | MEDICARE | MEDICA | [id number] | 01/23/20 | [phone] | | Medica | | | RE | | 09-Pre | 5 | | re | | | PART A | | sent | | | | | | AND B | | | | | | + +--------+ +--------+ +---------+--------+ | | TRICAR | [id number] | 06/02/ | [phone] | | Indemn | | | E FOR | | 2019-P | 0 | | ity | | | LIFE | | resent | | | | + +--------+ +--------+ +---------+--------+ | MEDICAID [place] | MEDICA | [id number] | 06/02/ | [phone] | | Medica [...] | | al/Fam | | 1955 | [phone] | [address] [place], | | | [place] | | | 6 (Home) | [place] [address] | + +--------+ +--------+ + + | Darcy Sun | Person | Self | [birth year] | [address] | | | al/Fam | | 1955 | [phone] | [address] [place], | | | [place] | | | [address] (Home) | [place] [address] | + +--------+ +--------+ + + Advance Directives + + + + + | Type | Date Recorded | Patient | Explanation | | | | Varnish Remover | | + + + + + | Power of | | | | | Roll Machine Operator | | | | + + + + + | Advance | | | | | Directive | | | | + + + + +"
--- OUTSIDE RECORDS SUMMARY | ~2019-07-18 | XMS | Encounter Summary ---
Demographics + + + | Address | [address] | | | [place] [address] | + + + | Home Phone | | + + + | Preferred Language | Unknown | + + + | Marital Status | Single | + + + | Buddhist Affiliation | NON | + + + | Race | White | + + + | Ethnic Group | Not or | + + + Author + + + | Author | [facility] | + + + | Organization | [facility] | + + + | Address | [...] Providers + +------+ + | Care Commercial Credit Reviewer Name | Role | Phone | + [...] lumbar | | 2019 | Visit | [facility] [address] | [address] | laminectomy (Primary | | | | Ave Mailcode: | [place], | Dx) | | | | [facility] | [place] [address] | | | | | and Healing, | [phone] | | | | | [address] [address] | | | | | | [place], [place] | | | | | | [address] | | | | | | [phone] | | | +--------+---------+ + + + [...] Barrett MD - 2019 1:05 PM PDT [facility] Department of Neurological Surgery Progress Note Chief [...] questions were answered. I spent 10 minutes [id number] with the patient. I spent more than 50% of this visit in co ordination of care and counseling in which we discussed diagnosis, treatment, imaging studie s and follow-up. Jarrod Barrett MD Report Developer Department of Neurological Surgery [facility] [place] [facility] and [address] [address] documented in this enco unter Plan of Treatment +--------+ + + + + | Date | Type | Specialty | Care Team | Description | +--------+ + + + + | 06/17/ | Hospital | Adult Acute Care | Jarrod Barrett MD | | | 2019 | Encounter | | [address] | | | | | | [place], | | | | | | [place] [address] | | | | | | [phone] | | | | | | | [...]
--- OUTSIDE RECORDS SUMMARY | ~2019-07-18 | XMS | Clinical Summary ---
Demographics + + + | Address | [address] | | | [place] [address] | + + + | Home Phone | | + + + | Preferred Language | Unknown | + + + | Marital Status | | + + + | Anabaptist Affiliation | Unknown | + + + [...] | | + + +---------+ + | Veróncia Lopez | ECON | Unknown | | + + +---------+ + Care Team Providers + +------+ + | Care Biomedical Engineering Technologist Name | Role | Phone | + [...] | | | | | [place] [address] | | | | | | [phone] | | | | | | | [...] the | | | | PDT | ([facility]) Essential | results section. | | | | | hypertension S/P | | | | | | carotid | | | | | | endarterectomy | | | | | | Carotid occlusion, | | | | | | left Claudication, | | | | | | intermittent ([facility]) | | | | | | Other emphysema | | | | | | ([facility]) Tobacco | | | | | | [...] | | | | | by [facility] [place] Read Only, | | | | | | [facility] Raj (161), | | | | | | general expeditor Agustin Michel | | | | | | (700) on 06/09/2019 | | | | | [...] +--------+ +---------+--------+ | MEDICARE | MEDICA | [id number] | 01/23/20 | [phone] | | Medica | | | RE | | 09-Pre | 5 | | re | | | PART A | | sent | | | | | | AND B | | | | | | + +--------+ +--------+ +---------+--------+ | MEDICARE | MEDICA | [id number] | 01/23/20 | [phone] | | Medica | | | RE | | 09-Pre | 5 | | re | | | PART A | | sent | | | | | | AND B | | | | | | + +--------+ +--------+ +---------+--------+ | | TRICAR | [id number] | 06/02/ | [phone] | | Indemn | | | E FOR | | 2019-P | 0 | | ity | | | LIFE | | resent | | | | + +--------+ +--------+ +---------+--------+ | MEDICAID [place] | MEDICA | [id number] | 06/02/ | [phone] | | Medica [...] | | al/Fam | | 1955 | [phone] | [address] [place], | | | [place] | | | [address] (Home) | [place] [address] | + +--------+ +--------+ + + | Darcy Sun | Person | Self | [birth year] | [address] | | | al/Fam | | 1955 | [phone] | [address] [place], | | | [place] | | | [address] (Home) | [place] [address] | + +--------+ +--------+ + + Advance Directives + + + + + | Type | Date Recorded | Patient | Explanation | | | | Microstrategy Bi Developer | | + + + + + | Power of | | | | | Waiter/Waitress Take Out | | | | + + + + + | Advance | | | | | Directive | | | | + + + + +"
--- OUTSIDE RECORDS SUMMARY | ~2019-07-18 | XMS | Encounter Summary ---
Demographics + + + | Address | [address] | | | [place] [address] | + + + | Home Phone [...] Team Providers + +------+ + | Care Retail Assistant Name | Role | Phone | + +------+ + | Litzy Castillo MD | PCP | | + +------+ + Encounter Details +--------+ + + + + | Date | Type | Department | Care Team | Description | +--------+ + + + + | 08/28/ | Hospital | [facility] | Conversion | Pain | | 2019 | Encounter | [address] | Transaction, | | | | | [address] | Provider Unknown | | | | | [place], [place] | [phone] | | | | | [address] | | | | | | [phone] | | | +--------+ + + + [...] MARCANO | | | | | | [place] [address] | | | | | | [phone] | | | | | | | [...]
--- OUTSIDE RECORDS SUMMARY | ~2019-07-18 | XMS | Encounter Summary ---
Demographics + + + | Address | [address] | | | [place] [address] | + + + | Home Phone [...] Team Providers + +------+ + | Care Pattern Stamper Name | Role | Phone | + [...] | | | | stenosis of | [place], [place] | | | | | | lumbar | [address] | | | | | | region with | Phone: | | | | | | radiculopath | [phone] | | | | | | y | Fax: | | | | | | Procedures | [phone] | | | | | | PHYSICAL [...] | | Ave Mailcode: | [place], | | | | | [facility] | [place] [address] | | | | | and [place], | [phone] | | | | | [facility] 1 | | | | | | [place], [place] | | | | | | [address] | | | | | | [phone] | | | +--------+ + + + [...] | | | | | [place], | | | | | | [place] [address] | | | | | | [phone] | | | | | | | [...]
--- OUTSIDE RECORDS SUMMARY | ~2019-07-18 | XMS | Encounter Summary ---
Demographics + + + | Address | [address] | | | [place] [address] | + + + | Home Phone [...] Team Providers + +------+ + | Care Business Office Technician Name | Role | Phone | [...] | Post-discharge | | 2019 | | [facility] [address] | [address] | follow-up (s/p | | | | Ave Mailcode: | [place], | lumbar laminectomy | | | | [place] for [facility] | [place] [address] | (dos: 12/14/18)) | | | | les [place], | [phone] | | | | | [facility] 1 | | | | | | [place], [place] | | | | | | [address] | | | | | | [phone] | | | +--------+ + + + [...] | | | | | [place], | | | | | | [place] [address] | | | | | | [phone] | | | | | | | | +--------+ + + + + | 06/18/ | Procedure | Surgery | | | | 2019 | Pass | | | | +--------+ + + + + documented as of this encounter Visit Diagnoses Not on filedocumented in this encounter"
--- OUTSIDE RECORDS SUMMARY | ~2019-07-18 | XMS | Encounter Summary ---
Demographics + + + | Address | [address] | | | [place] [address] | + + + | Home Phone | | + + + | Preferred Language | Unknown | + + + | Marital Status | Single | + + + | Yarsani Affiliation | NON | + + + [...] Team Providers + +------+ + | Care Furnace Clerk Name | Role | Phone | + +------+ + | Heide Bhatti | PCP | | + +------+ + Encounter Details +--------+ + + + + | Date | Type | Department | Care Team | Description | +--------+ + + + + | 05/17/ | Hospital | Radiology/Imaging | Jarrod Barrett MD | | | 2018 | Encounter | Lab at [facility] [address] | [address] | | | | | [address] Mailcode: | [place], | | | | | [facility] | [place] [address] | | | | | and [place], | [phone] | | | | | [facility] | | | | | | Floor [place], [place] | | | | | | [address] | | | | | | [phone] | | | +--------+ + + + [...] | | | | | [place], | | | | | | [place] [address] | | | | | | [phone] | | | | | | | [...]
--- OUTSIDE RECORDS SUMMARY | ~2019-07-18 | XMS | Encounter Summary ---
Demographics + + + | Address | [address] | | | [place] [address] | + + + | Home Phone [...] Team Providers + +------+ + | Care Bearing Inspector Name | Role | Phone | + +------+ + | Litzy Castillo MD | PCP | | + +------+ + Encounter Details +--------+ + + + + | Date | Type | Department | Care Team | Description | +--------+ + + + + | 08/28/ | Hospital | [facility] | Conversion | Pain | | 2019 | Encounter | [address] | Transaction, | | | | | [address] | Provider Unknown | | | | | [place], [place] | [phone] | | | | | [address] | | | | | | [phone] | | | +--------+ + + + [...] MARCANO | | | | | | [place] [address] | | | | | | [phone] | | | | | | | [...]
--- OUTSIDE RECORDS SUMMARY | ~2019-07-18 | XMS | Encounter Summary ---
Demographics + + + | Address | [address] | | | [place] [address] | + + + | Home Phone | | + + + | Preferred Language | Unknown | + + + | Marital Status | Single | + + + | Anabaptist Affiliation | NON | + + + | Race | White | + + + | Ethnic Group | Not or | + + + Author + + + | Author | [facility] | + + + | Organization | [facility] | + + + | [...] Team Providers + +------+ + | Care Cotton Buyer Name | Role | Phone | [...] | | | | | [address] | [place], [place] | Mailcode: | | | | | AM, ADULT | [address] | [id number] | | | | | | Phone: | Harlan Prater | | | | | | [phone] | [facility] | | | | | | Fax: | [place], [place] | | | | | | [phone] | [address] | | | | | | | Phone: | | | | | | | [phone] | +--------+--------+ + + + + Diagnostic [...] Rd | | | | | | [place], [place] | Mailcode: | | | | | | [address] | [address] [facility] | | | | | | Phone: | Hospital | | | | | | [phone] | [place], [place] | | | | | | Fax: | [address] | | | | | | [phone] | Phone: | | | | | | | [phone] | | | | | | | Fax: | | | | | | | [phone] | +--------+--------+ + + + + Diagnostic [...] | | | | | COMPLETE | [place], [place] | Rd Mailcode: | | | | | BILATERAL | [address] | [address] | | | | | | Phone: | Physician's | | | | | | [phone] | Pavilion | | | | | | Fax: | [place], [place] | | | | | | [phone] | [address] | | | | | | | Phone: | | | | | | | [phone] | | | | | | | Fax: | | | | | | | [phone] | +--------+--------+ + + + + Reason [...] | | | | | | | [facility] [place] | | | | | | | [address] | | | | | | | Phone: | | | | | | | [phone] | | | | | | | Fax: | | | | | | | [phone] | +--------+--------+ + + + + Encounter Details +--------+ + + + + | Date | Type | Department | Care Team | Description | +--------+ + + + + | 11/16/ | Hospital | [facility] [address] | Emi Arroyo MD | | | 2009 - | Encounter | [address] | [address] | | | | | [id number] [facility] | [place], | | | 11/21/ | | HOSPITAL [place], | [place] [address] | | | 2009 | | [place] [address] | [phone] | | | | | [phone] | | | | | | | Tru Barroso MD | | | | | | [address] | | | | | | [place], | | | | | | [place] [address] | | | | | | [phone] | | | | | | | [...] in this encounter Discharge Summaries Christa Herrera, NAIL FEEDER - 11/21/2009 11:56 AM PDTFormatting of this [...] carotid arteries. She was transfer red to [facility] and admitted on 11-16-09. [facility] Neuro-Stroke consult was obtained and CTA of [...] drainage, o r fever > 100.5. Call [facility] Vascular Surgery clinic if there are signs of infection Diet Regular Activity Restrictions: Activity level at discharge Up unrestricted HOB Position 30 Degrees Driving Restrictions No Driving until off pain meds Bathing Restrictions Shower is okay, keep wound open to air Destination: Destination: Home Condition on Discharge Good Discharge Follow Up Provider and Clinic: [facility] Vascular Surgery Clinic [address], [phone] Appointment: Call to make an appointment in 2 weeks Other Discharge Orders and Instructions Recommend continued smoking cessation, use Nicotine patches and followup with PCP for critical access hospital er assistance to stay smoke free. CECELIA MCNEAL [place] [id number] [facility] [address] [address] [id number] [facility] [address] Discharging Physician: CECELIA MCNEAL Attending Physician: Tru [...] lifestyle changes may be recommended. Hospitalization or jail car e is decided upon an individual [...] are getting worse. ExitCare Patient Information 2006 [employer]. INPATIENT NURSE ORDER FOR DISCHARGE AND INTERDISCIPLINARY [...] Mode of Transportation: Car Accompanied by: Family/Responsible [employer] Company Name: (when applicable) Phone [...] the resident s note. GUSTAVO REECE MD [facility] [address] [id number] [facility] [address] Richard Ott MD - 2009 9:17 AM [...] chuck y. No escape rhythm. No prolonged OK or wide QRS. Likely vagal in nature. [...] today for Right CEA, patient marked Sam Ware MD Tru Rick MD - 0 11/19/2009 [...] with plan. TRU BAXTER MD VASCULAR SURGERY, [address] [place] [address] Email: [email or web address] Kurt Mccoy - 5:33 PM PDTTransthoracic echocardiogram [...] exam and care plan as per the house painter helper and rex perez examined the patient myself. [...] the angiogram. She has not had an SD or AF, although did have a history [...] candidate since h er symptoms have resolved. [facility] DEPARTMENT: MARIA LUISA STROKE [facility] - [phone] Place of Service: - CSN: [id number] Suggested Modifer: GC Resident Present Suggested Level of Service: 92173 - Consults, Comp/mod complex 80 min Suggested [...] | | | | | [place], | | | | | | [place] [address] | | | | | | [phone] | | | | | | | [...] [facility] RESPIRATORY | [address] | [place], [place] | | | THERAPY | [address] | [address] | | + + + + + [...] DEPARTMENT | [address] | [place] [address] | | | PATHOLOGY | [address] [...] | + + + + + | [facility] | [address] | [place] [address] | | | PATHOLOGY | [address] [...] | + + + + + | [facility] DEPARTMENT OF | [address] | [place] [address] | | | PATHOLOGY | [address] [...] DEPARTMENT OF | [address] | [place] [address] | | | PATHOLOGY | [address] [...] | + + + + + | [facility] DEPARTMENT OF | [address] | [place] [address] | | | PATHOLOGY | [address] [...] | | | | | JULIAN OWENS ([id number]) | | | | | | on [...] view image for the detailed interpretation from [email or web address] results. | CARDIOLOGY | | | | + + + + + + + + | Performing | Address | City/State/Zipcode | Phone Number | | Organization | | | | + + + + + | [facility] DEPT OF | [address] | [place], [place] | | | CARDIOLOGY | [facility] | [address] | | + + + + + [...] | + + + + + | [facility] | [address] | [place] [address] | | | PATHOLOGY | [address] [...] DEPARTMENT OF | [address] | [place] [address] | | | PATHOLOGY | [address] [...] + + | [facility] DEPARTMENT OF | [address] | [place] [address] | | | PATHOLOGY | [address] [...] OF | [address] | [place] [address] | | | PATHOLOGY | [address] [...] | + + + + + | [facility] | [address] | [place] [address] | | | PATHOLOGY | [address] [...] | + + + + + | [facility] | [address] | [place] [address] | | | PATHOLOGY | [address] [...] | + + + + + | [facility] | [address] | [place] [address] | | | PATHOLOGY | [address] | | | + + + + + OPERATION RECORD (11/20/2009 12:00 AM PDT) + + + | Narrative | Performed At | + + + | [id number] | | | [id number] | | | [id number] [place] [id number] | | | Date: 11/20/2009 Attending | | | Surgeon: Tru Barroso M.D. | | | Vendor Management Associate(s): Shanta Rubi M.D. | | | Preoperative [...] procedure well. TRU BARROSO, | | | balance truing inspector [facility] / [id number] / [id number] / [id number] / | | | | | + + + + + | Procedure Note | + + | Tru Barroso MD - 11/20/2009 12:00 AM PDT [id number] | | [id number] [place] | | [id number] Date: 11/20/2009 Attending Surgeon: | | Tru Barroso M.D. Vendor Management Associate(s): Shanta Rubi M.D. | | Preoperative Diagnosis(es):Symptomatic [...] of presentation was found to have an vqdykcxydhqzv42% stenosis of the | | right internal [...] tolerate | | theprocedure well. TRU BARROSO, [facility] / [id number] / [id number] / | | [id number] / T: 11/21/2009 | |external carotid and [...] | | | |TRU BARROSO MD | |balance truing inspector | | | | | |[facility] / | |[id number] / [id number] / [id number] / | | | | | | [...] | + + + + + | [facility] | [address] | [place] [address] | | | PATHOLOGY | [address] [...] | + + + + + | [facility] DEPARTMENT OF | [address] | [place] [address] | | | PATHOLOGY | [address] [...] | + + + + + | [facility] | [address] | [place] [address] | | | PATHOLOGY | [address] | | | + + + + + MAGNESIUM, PLASMA (11/19/2009 6:08 AM PDT) + +-------+ + + + | Component | Value | Ref Range | Performed | Pathologist | | | | | At | Signature | + +-------+ + + + | MAGNESIUM,P | 2.4 | 1.8 - 2.5 mg/dL | [facility] | | | LASMA | | | [...] | + + + + + | [facility] DEPARTMENT OF | [address] | [place] [address] | | | PATHOLOGY | [address] [...] DEPARTMENT OF | [address] | [place] [address] | | | PATHOLOGY | [address] [...] DEPARTMENT OF | [address] | [place] [address] | | | PATHOLOGY | [address] [...] | + + + + + | [facility] | [address] | [place] [address] | | | PATHOLOGY | [address] [...] [facility] DEPARTMENT | [address] | [place] [address] | | | PATHOLOGY | [address] [...] | + + + + + | [facility] DEPARTMENT | [address] | [place] [address] | | | PATHOLOGY | [address] [...] | + + + + + | [facility] DEPARTMENT OF | [address] | [place] [address] | | | PATHOLOGY | [address] [...] DEPARTMENT OF | [address] | [place] [address] | | | PATHOLOGY | [address] [...] | + + + + + | [facility] DEPARTMENT OF | [address] | [place] [address] | | | PATHOLOGY | [address] [...] DEPARTMENT OF | [address] | [place] [address] | | | PATHOLOGY | [address] [...] | + + + + + | [facility] DEPARTMENT OF | [address] | [place] [address] | | | PATHOLOGY | [address] [...] | + + + + + | [facility] DEPARTMENT OF | [address] [facility] | [place] [address] | | | PATHOLOGY | [address] [...] | + + + + + | [facility] | [address] | [place] [address] | | | PATHOLOGY | [address] [...] | + + + + + | [facility] | [address] | [place] [address] | | | PATHOLOGY | [address] [...] | + + + + + | [facility] | [address] | [place] [address] | | | PATHOLOGY | [address] [...] RESPIRATORY | [address] | [place] | | | THERAPY | [address] | [address] | | + + + + + [...] | | + +---------+ + + | [facility] DEPARTMENT OF | | [...] | | + +---------+ + + | [facility] DEPARTMENT OF | | [...] | + + + + + | [facility] DEPARTMENT OF | [address] | [place] [address] | | | PATHOLOGY | [address] [...] | | | | | CAROTID | [id number] Name: | | | | | DUPLEX [...] # | | | | | | [id number] | | | | | | RESULT:CEREBROVASCULAR [...] | + + + + + | [facility] | [address] | [place] [address] | | | PATHOLOGY | [address] [...] | + + + + + | [facility] DEPARTMENT | [address] | [place] [address] | | | PATHOLOGY | [address] [...] | + + + + + | [facility] | [address] | [place] [address] | | | PATHOLOGY | [address] | | | + + + + + MAGNESIUM, PLASMA (11/16/2009 11:05 AM PDT) + +-------+ + + + | Component | Value | Ref Range | Performed | Pathologist | | | | | At | Signature | + +-------+ + + + | MAGNESIUM,P | 2.3 | 1.8 - 2.5 mg/dL | [facility] | | | LASMA | | | [...] | + + + + + | [facility] DEPARTMENT OF | [address] | [place] [address] | | | PATHOLOGY | [address] [...] | + + + + + | [facility] | [address] | [place] [address] | | | PATHOLOGY | [address] [...] | + + + + + | [facility] | [address] | [place] [address] | | | PATHOLOGY | [address] [...] | | | | | PORTABLE | [id number] Name: | | | | | ABDOMINAL [...] # | | | | | | [id number] RESULT:GRAFT | | | | | | [...] Cathie | | | | | | [place] | | | | | | | | | | | |STATUS FINAL / Dr. TRU BAXTER | | | | | |STATUS PRELIMINARY - UNSIGNED / Cathie [place] | | | | | | | [...] [facility] RES[facility]ORY | [address] | [place], [place] | | | THERAPY | [address] | [address] | | + + + + + [...] DEPARTMENT OF | [address] | [place] [address] | | | PATHOLOGY | [address] [...] | + + + + + | [facility] | [address] | [place] [address] | | | PATHOLOGY | [address] [...] [facility] RES[facility] | [address] | [place], [place] | | | THERAPY | [address] | [address] | | + + + + + [...] view image for the detailed interpretation from [email or web address] results. | CARDIOLOGY | | | | + + + + + + + + | Performing | Address | City/State/Zipcode | Phone Number | | Organization | | | | + + + + + | [facility] DEPT OF | [address] | [place], [place] | | | CARDIOLOGY | [address] | [address] | | + + + + + [...]
--- OUTSIDE RECORDS SUMMARY | ~2019-07-18 | XMS | Encounter Summary ---
Demographics + + + | Address | [address] | | | [place] [address] | + + + | Home Phone | | + + + | Preferred Language | Unknown | + + + | Marital Status | Single | + + + | Denominational Affiliation | NON | + + + [...] Team Providers + +------+ + | Care Operations Associate Name | Role | Phone | [...] | | | | attack) S/P | [place], [place] | Mailcode: | | | | | carotid | [address] | [address] | | | | | endarterecto | Phone: | [place] | | | | | | [phone] | Research | | | | | Cerebrovascu | Fax: | [place] [address] | | | | | lar accident | [phone] | floor | | | | | (CVA), | | [place], [place] | | | | | unspecified | | [address] | | | | | mechanism | | Phone: | | | | | (HCC) | | [phone] | | | | | Procedures | | Fax: | | | | | CONSULT TO | | [phone] | | | | | NEUROLOGY | [...] Referral to | | 2018 | | [facility] [address] | [address] | neurology service | | | | [place] Mailcode: | [place], | | | | | [facility] | [place] [address] | | | | | and Aam[place], | [phone] | | | | | [place] [address] | | | | | | [place], [place] | | | | | | [address] | | | | | | [phone] | | | +--------+ + + + [...] | | | | | [place], | | | | | | [place] [address] | | | | | | [phone] | | | | | | | [...]
--- OUTSIDE RECORDS SUMMARY | ~2019-07-18 | XMS | Encounter Summary ---
Demographics + + + | Address | [address] | | | [place] [address] | + + + | Home Phone [...] Team Providers + +------+ + | Care Transitions Rn Care Coordinator Name | Role | Phone | + +------+ + | Litzy Castillo MD | PCP | | + +------+ + Encounter Details +--------+ + + + + | Date | Type | Department | Care Team | Description | +--------+ + + + + | 08/28/ | Hospital | [facility] | Conversion | Pain | | 2019 | Encounter | CONVERSION [address] | Transaction, | | | | | [address] | Provider Unknown | | | | | [place], [place] | [phone] | | | | | [address] | | | | | | [phone] | | | +--------+ + + + [...] | | | | | [place] [address] | | | | | | [phone] | | | | | | | [...] Procedure Note | + + | Zak rOtiz - 04/05/2019 10:50 PM PDT This is a non-reportable procedure | | without a radiologist report and isused for image storage only | + + documented in this encounter Visit Diagnoses + + | Diagnosis | + + | Pain Generalized pain | + + documented in this encounter"
--- OUTSIDE RECORDS SUMMARY | ~2019-07-18 | XMS | Encounter Summary ---
Demographics + + + | Address | [address] | | | [place] [address] | + + + | Home Phone [...] Team Providers + +------+ + | Care Pesticide Chemist Name | Role | Phone | + +------+ + | Litzy Castillo MD | PCP | | + +------+ + Encounter Details +--------+ + + + + | Date | Type | Department | Care Team | Description | +--------+ + + + + | 08/28/ | Hospital | [facility] | Conversion | Pain | | 2019 | Encounter | CONVERSION [address] | Transaction, | | | | | [address] | Provider Unknown | | | | | [place], [place] | [phone] | | | | | [address] | | | | | | [phone] | | | +--------+ + + + [...] [address]ARC[address]O | | | | | | [place] [address] | | | | | | [phone] | | | | | | | [...]
--- OUTSIDE RECORDS SUMMARY | ~2019-07-18 | XMS | Encounter Summary ---
Demographics + + + | Address | [address] | | | [place] [address] | + + + | Home Phone [...] Providers + +------+ + | Care Security Alarm Technician Name | Role | Phone | + +------+ + | Litzy Castillo MD | PCP | | + +------+ + Encounter Details +--------+ + + + + | Date | Type | Department | Care Team | Description | +--------+ + + + + | 08/28/ | Hospital | [facility] | Conversion | Pain | | 2019 | Encounter | CONVERSION DE[address] | Transaction, | | | | | [address] | Provider Unknown | | | | | [place], [place] | [phone] | | | | | [address] | | | | | | [phone] | | | +--------+ + + + [...] MARCANO | | | | | | [place] [address] | | | | | | [phone] | | | | | | | [...]
--- OUTSIDE RECORDS SUMMARY | ~2019-07-18 | XMS | Encounter Summary ---
Demographics + + + | Address | [address] | | | [place] [address] | + + + | Home Phone [...] Team Providers + +------+ + | Care Employer Relations Representative Name | Role | Phone | [...] | | | other site | [place] | [place] | | | | | Spinal | Rd | Rd [place], | | | | | stenosis, | [place], [place] | [place] | | | | | lumbar | [address] | [address] | | | | | region with | Phone: | Phone: | | | | | neurogenic | [phone] | [phone] | | | | | claudication | Fax: | Fax: | | | | | | [phone] | [phone] | | | | | Radiculopath | | | | | | | y, lumbar | | | | | | | region | | | | | | | Procedures | | | | | | | REQUEST TO | | | | | | | SURGERY | | | | | | | TOUR CONDUCTOR | | | | | | | MT EXCIS | | | | | | | INTRASP | | | | | | | LESN,XDURAL, | | | | | | | LUMBAR MT | | | | | | | EXCIS | | | | | | | INTRASP | | | | | | | LESN,INTRADU | | | | | | | R,LUMB MT | | | | | | | BX/EXCIS | | | | | | | SPINAL | | | | | | | TUMOR,XDURAL | | | | | | | ,LUMB MT | | | | | | | BX/EXCIS | | | | | | | SPIN | | | | | | | BALBIR,INDUR,XM | | | | | | | ED,LUMB MT | | | | | | | [...] + + + + | 12/02/ | Documentati | [facility] at | Jarrod Barrett MD | | | 2019 | on | [facility] [address] | [address] | | | | | [place] Mailcode: | [address] [facility] | | | | | [facility] | [place] [address] | | | | | and [place], | [phone] | | | | | [place] [address] | | | | | | [place], [place] | | | | | | [address] | | | | | | [phone] | | | +--------+ + + + [...] | | | | | [place], | | | | | | [place] [address] | | | | | | [phone] | | | | | | | | +--------+ + + + + | 06/18/ | Procedure | Surgery | | | | 2019 | Pass | | | | +--------+ + + + + documented as of this encounter Visit Diagnoses + + | Diagnosis | + + | Spinal stenosis of lumbar region with radiculopathy - Primary Spinal stenosis, lumbar | | region, without neurogenic claudication | + + | Synovial cyst Synovial cyst, unspecified | + + documented in this encounter"
--- OUTSIDE RECORDS SUMMARY | ~2019-07-18 | XMS | Encounter Summary ---
Demographics + + + | Address | [address] | | | [place] [address] | + + + | Home Phone [...] Team Providers + +------+ + | Care Motor Vehicle Dispatcher Name | Role | Phone | [...] | | | [place] | [address] | | | | | [address] | [phone] | | | | | [phone] | | | +--------+ + + + [...] | | | | | [place] [address] | | | | | | [phone] | | | | | | | | +--------+---------+ + + + documented as of this encounter Visit Diagnoses Not on filedocumented in this encounter"
--- OUTSIDE RECORDS SUMMARY | ~2019-07-18 | XMS | Encounter Summary ---
Demographics + + + | Address | [address] | | | [place] [address] | + + + | Home Phone [...] Team Providers + +------+ + | Care Informatics Pharmacist Name | Role | Phone | + +------+ + | Litzy Castillo MD | PCP | | + +------+ + Encounter Details +--------+ + + + + | Date | Type | Department | Care Team | Description | +--------+ + + + + | 12/16/ | Web Site Designer | Sp[facility] at | Tara Glass | | | 2019 | | [facility] [address] | SHAYE Osuna [address] | | | | | [place] Mailcode: | [address] | | | | | [facility] | [place], [place] | | | | | [place], | [address] | | | | | [place] [address] | [phone] | | | | | [place], [place] | | | | | | [address] | | | | | | [phone] | | | +--------+ + + + [...] | | | | | | [place] [address] | | | | | | [phone] | | | | | | | | +--------+ + + + + | 06/18/ | Procedure | Surgery | | | | 2020 | Pass | | | | +--------+ + + + + documented as of this encounter Visit Diagnoses Not on filedocumented in this encounter"
--- OUTSIDE RECORDS SUMMARY | ~2019-07-18 | XMS | Encounter Summary ---
Demographics + + + | Address | [address] | | | [place] [address] | + + + | Home Phone [...] Team Providers + +------+ + | Care Valet Cashier Name | Role | Phone | + +------+ + | Heide Bhatti | PCP | | + +------+ + Encounter Details +--------+ + + + + | Date | Type | Department | Care Team | Description | +--------+ + + + + | 01/05/ | Social Services Director | Vascular Surgery | Kaveh Izaguirre MD | | | 2011 | | at [facility] 2nd Floor | [address] | | | | | [address] | [address] [place], | | | | | [address] Mailcode: | [place] [address] | | | | | [address] Physician's | [phone] | | | | | [place], | | | | | | [place] [address] | | | | | | [phone] | | | +--------+ + + + [...] | | | | | [address] [place], | | | | | | [place] [address] | | | | | | [phone] | | | | | | | | +--------+ + + + + | 06/18/ | Procedure | Surgery | | | | 2020 | Pass | | | | +--------+ + + + + documented as of this encounter Visit Diagnoses Not on filedocumented in this encounter"
--- OUTSIDE RECORDS SUMMARY | ~2019-07-18 | XMS | Encounter Summary ---
Demographics + + + | Address | [address] | | | [place] [address] | + + + | Home Phone [...] Team Providers + +------+ + | Care Yarding And Folding Machine Operator Name | Role | Phone [...] | | endarterecto | [address] | [facility] | | | | | my | [address] | Rd Mailcode: | | | | | Procedures | [facility] | [address] | | | | | VASC LAB | Road | Physician's | | | | | CAROTID | [place], [place] | Pavilion | | | | | DUPLEX RIGHT | [address] | [place], [place] | | | | | | Phone: | [address] | | | | | | [phone] | Phone: | | | | | | Fax: | [phone] | | | | | | [phone] | Fax: | | | | | | | [phone] | +--------+--------+ + + + + Reason [...] | | | [address] Mailcode: | [place], [place] | Unspecified | | | | [address] Physician's | [address] | transient cerebral | | | | [place], | [phone] | ischemia | | | | [place] [address] | | | | | | [phone] | | | +--------+---------+ + + + [...] management plan. PATRICK NUNEZ MD VASCULAR SURGERY [address] [place] [address] Mailcode: [address] [place] [address] Gus Gan MD - 12/03/2009 1:58 PM PDTI saw and evaluated the patient. I agree with the findings and the plan of care as documented in the resident s note. Her follow up duplex is fine and w e will see her in one year GUS BARROSO MD VASCULAR SURGERY [address] [place] [address] Mailcode: [address] [place] [address] documented in this en counter Plan of [...] | | | | | | [place] [address] | | | | | | [phone] | | | | | | | | +--------+ + + + + | 06/18/ | Procedure | Surgery | | | | 2019 | Pass | | | | +--------+ + + + + documented as of this encounter Results [facility] CAROTID DUPLEX RIGHT (12/03/2009 2:49 PM PDT) + + + + + + | Component | Value | Ref Range | Performed | Pathologist | | | | | At | Signature | + + + + + + | VASC LAB | Med Rec No: | | | | | CAROTID | [id number] Name: | | | | | DUPLEX | DOV SUN Birthday: | | | | | RIGHT | 1955 Sex: F | | | | | | Alias: Patient Location: | | | | | | [id number]: | | | | | | Outpatient [...] # | | | | | | [id number] | | | | | | RESULT:CEREBROVASCULAR [...] | | + +---------+ + + | [facility] DEPARTMENT OF | | | | | RADIOLOGY | | | | + +---------+ + + documented in this encounter Visit Diagnoses + + | Diagnosis | + + | S/P carotid endarterectomy - Primary Other postprocedural status | + + | Unspecified transient cerebral ischemia | + + documented in this encounter
--- OUTSIDE RECORDS SUMMARY | ~2019-07-18 | XMS | Encounter Summary ---
Demographics + + + | Address | [address] | | | [place] [address] | + + + | Home Phone | | + + + | Preferred Language | Unknown | + + + | Marital Status | | + + + | Sikh Affiliation | Unknown | + + + [...] Providers + +------+ + | Care Director Report Name | Role | Phone | + [...] | | | [place], [place] | [address] | | | | | [address] | [phone] | | | | | [phone] | | | +--------+ + + + [...] | | | | | [place] [address] | | | | | | [phone] | | | | | | | | +--------+---------+ + + + documented as of this encounter Visit Diagnoses Not on filedocumented in this encounter"
--- OUTSIDE RECORDS SUMMARY | ~2019-07-18 | XMS | Encounter Summary ---
Demographics + + + | Address | [address] | | | [place] [address] | + + + | Home Phone [...] Team Providers + +------+ + | Care Anchorer Name | Role | Phone | + +------+ + PCP | Unavailable | + +------+ + Encounter Details +--------+ + + + + | Date | Type | Department | Care Team | Description | +--------+ + + + + | 07/20/ | Hospital | [facility] | Matheus Corado MD | | | 2011 | Encounter | [facility] | [address] | | | | | [facility] | [place], [place] | | | | | [address], | [address] | | | | | [place] [address] | | | | | | [phone] | | | +--------+ + + + [...] | | | | | [place] [address] | | | | | | [phone] | | | | | | | | +--------+---------+ + + + documented as of this encounter Visit Diagnoses Not on filedocumented in this encounter"
--- OUTSIDE RECORDS SUMMARY | ~2019-07-18 | XMS | Encounter Summary ---
Demographics + + + | Address | [address] | | | [place] [address] | + + + | Home Phone | | + + + | Preferred Language | Unknown | + + + | Marital Status | Single | + + + | Jewish Affiliation | NON | + + + [...] Team Providers + +------+ + | Care International Account Executive Name | Role | Phone | [...] | | of carotid | [address] | [facility] | | | | | artery | [address] | Rd Mailcode: | | | | | without | [place], [place] | [address] | | | | | mention of | [address] | Physician's | | | | | cerebral | Phone: | Pavilion | | | | | infarction | [phone] | [place], [place] | | | | | Atherosclero | Fax: | [address] | | | | | sis of | [phone] | Phone: | | | | | alatna | | [phone] | | | | | arteries of | | Fax: | | | | | the | | [phone] | | | | | extremities | [...] | | | | of carotid | [place] | [facility] | | | | | artery | [address] | [address] Mailcode: | | | | | without | [place], [place] | [address] | | | | | mention of | [address] | Physician's | | | | | cerebral | Phone: | Pavilion | | | | | infarction | [phone] | [place], [place] | | | | | Atherosclero | Fax: | [address] | | | | | sis of | [phone] | Phone: | | | | | alatna | | [phone] | | | | | arteries of | | Fax: | | | | | the | | [phone] | | | | | extremities | [...] | | | | | | | [place], [place] | | | | | | | [address] | | | | | | | Phone: | | | | | | | [phone] | | | | | | | Fax: | | | | | | | [phone] | +--------+--------+ + + + + Encounter Details +--------+---------+ + + + | Date | Type | Department | Care Team | Description | +--------+---------+ + + + | 05/28/ | Office | Vascular Surgery | Kaveh Arroyo MD | Occlusion and | | 2010 | Visit | at [facility] 2nd Floor | [address] | stenosis of carotid | | | | [address] [facility] | [address] [place], | artery without | | | | [address] Mailcode: | [place] [address] | mention of cerebral | | | | [address] Physician's | [phone] | infarction; | | | | [place], | | Atherosclerosis of | | | | [place] [address] | | alatna arteries of | | | | [phone] | | the extremities with | | [...] of right aorto-femora l bypass in the ([place] and right carotid endarterectomy in October 2009 ([facility]). Prior to endarterectomy she had 80% stenosis [...] for 2.5 hrs and presented to the [place] ED where she had a head CT and was sent home. Yesterday evening she had an episo de of both legs giving out, with her son describing a concomitant left facial droop. She wa s taken by ambulance back to the ED, where it was recommended she come to [facility]. She feels t hat she is having [...] and I think that these replace the electrocardiograph repairer bilaterally. A/P: Ms. Sun is a 56 yo female with an extensive hx of PAD and carotid artery dz, now with a 1 w shawnee hx of episodes that are historically consistent [...] KAVEH ARROYO MD VASCULAR SURGERY [address] [facility] Mailcode: [address] [place] [address] documented in this enco unter Plan of Treatment +--------+ + + + + | Date | Type | Specialty | Care Team | Description | +--------+ + + + + | 06/17/ | Hospital | Adult Acute Care | Jarrod Barrett MD | | | 2019 | Encounter | | [address] | | | | | | [place], | | | | | | [place] [address] | | | | | | [phone] | | | | | | | [...] | | | | ANKLE BRACH | [id number] Name: | | | | | INDICS [...] | | | | | PMAccession # [id number] | | | | | | RESULT:LOWER [...] the | | | | | | erh-cr-wdidyo arteries | | | | | | [...] + +---------+ + + | [facility] DEPARTMENT OF | | | | | [...] | | | | | CAROTID | [id number] Name: | | | | | DUPLEX | DARCY SUN Birthday: | | | | | COMPLETE | 1955 Sex: F | | | | | BILATERAL | Alias: Patient Location: | | | | | | 1917[address]: | | | | | | Outpatient [...] # | | | | | | [id number] | | | | | | RESULT:CEREBROVASCULAR [...] + +---------+ + + | [facility] DEPARTMENT OF | | | | | RADIOLOGY | | | | + +---------+ + + documented in this encounter Visit Diagnoses + + | Diagnosis | + + | Occlusion and stenosis of carotid artery without mention of cerebral infarction | + + | Atherosclerosis of [place] arteries of the extremities with intermittent claudication | + + documented in this encounter"
--- OUTSIDE RECORDS SUMMARY | ~2019-07-18 | XMS | Encounter Summary ---
Demographics + + + | Address | [address] | | | [place] [address] | + + + | Home Phone [...] | Author | [facility] | + + + | Organization | [facility] | + + + | Address | [...] Team Providers + +------+ + | Care Rail Specialist Name | Role | Phone | [...] Pharmacy | | | | | | [address] | | | | | | [place], | | | | | | [place] [address] | | | | | | [phone] | | | +--------+ + + + [...] | | | | | [address] [place], | | | | | | [place] [address] | | | | | | [phone] | | | | | | | | +--------+ + + + + | 06/18/ | Procedure | Surgery | | | | 2020 | Pass | | | | +--------+ + + + + documented as of this encounter Visit Diagnoses Not on filedocumented in this encounter"
--- OUTSIDE RECORDS SUMMARY | ~2019-07-18 | XMS | Encounter Summary ---
Demographics + + + | Address | [address] | | | [place] [address] | + + + | Home Phone [...] Team Providers + +------+ + | Care Store Protection Specialist Name | Role | Phone | + +------+ + PCP | Unavailable | + +------+ + Encounter Details +--------+ + + + + | Date | Type | Department | Care Team | Description | +--------+ + + + + | 07/20/ | Hospital | [facility] | Matheus Corado MD | | | 2011 | Encounter | [facility] | [address] | | | | | [facility] [address] | [place], [place] | | | | | [address], | [address] | | | | | [place] [address] | | | | | | [phone] | | | +--------+ + + + [...] | | | | | [place] [address] | | | | | | [phone] | | | | | | | | +--------+---------+ + + + documented as of this encounter Visit Diagnoses Not on filedocumented in this encounter"
--- OUTSIDE RECORDS SUMMARY | ~2019-07-18 | XMS | Encounter Summary ---
Demographics + + + | Address | [address] | | | [place] [address] | + + + | Home Phone [...] Team Providers + +------+ + | Care Telecommunications Operator Name | Role | Phone | + +------+ + | Heide Bhatti | PCP | | + +------+ + Encounter Details +--------+---------+ + + + | Date | Type | Department | Care Team | Description | +--------+---------+ + + + | 05/28/ | Office | [facility] | Iván, | TIA (transient | | 2010 | Visit | [facility] | MD Maricuhy | ischemic attack) | | | | [facility] | | (Primary Dx) | | | | [address] | | | | | | [address] Mailcode: | | | | | | [address] [place] | | | | | | [facility] | | | | | | floor [place], [place] | | | | | | [address] | | | | | | [phone] | | | +--------+---------+ + + + [...] 2=Complete neglect 0 TOTAL SCORE: 0 Modified [place] Scale Score (mRS): 0 IMAGING: CTA Head/neck [...] patient has occluded L ICA and has phytopathologist so most of anter ior circulation is arising from R ICA, which is patent. Patient has areas of intracranial st enosis, and based on most recent SAMMPRIS study, maximum medical therapy is superior to intr acranial stenting. Patient therefore would likely benefit from [facility] -Continue ASA 325mg PO Daily [...] | | | | | [address] [place], | | | | | | [place] [address] | | | | | | [phone] | | | | | | | [...]
--- OUTSIDE RECORDS SUMMARY | ~2019-07-18 | XMS | Encounter Summary ---
Demographics + + + | Address | [address] | | | [place] [address] | + + + | Home Phone | | + + + | Preferred Language | Unknown | + + + | Marital Status | | + + + | Quaker Affiliation | Unknown | + + + [...] Team Providers + +------+ + | Care Purchasing Contracting Clerk Name | Role | Phone | + +------+ + | Litzy Castillo MD | PCP | | + +------+ + Encounter Details +--------+ + + + + | Date | Type | Department | Care Team | Description | +--------+ + + + + | 04/08/ | Orders Only | [facility] | Allison Suresh DO | Peripheral vascular | | 2019 | | CARDIOLOGY [place] | [address] | disease (HCC); | | | | [address] | [address] [place], [place] | Cerebral | | | | [address] | [address] | atherosclerosis | | | | [place] | | | | | | [address] | | | | | | [phone] | | | +--------+ + + + [...] [address] | | | | | | [place] [address] | | | | | | [phone] | | | | | | | | +--------+---------+ + + + documented as of this encounter Visit Diagnoses + + | Diagnosis | + + | Peripheral vascular disease (HCC) Peripheral vascular disease, unspecified | + + | Cerebral atherosclerosis | + + documented in this encounter"
--- OUTSIDE RECORDS SUMMARY | ~2019-07-18 | XMS | Encounter Summary ---
Demographics + + + | Address | [address] | | | [place] [address] | + + + | Home Phone [...] Team Providers + +------+ + | Care Frame Straightener Name | Role | Phone | + [...] | 2019 | Encounter | Lab at [facility] [address] | [address] | error) | | | | [place] [address] Mailcode: | [address] [place], | | | | | [address]HA [facility] | [place] [address] | | | | | [facility], | [phone] | | | | | [address] | | | | | | Floor [place], [place] | | | | | | [address] | | | | | | [phone] | | | +--------+ + + + [...] | | | | | [address] [place], | | | | | | [place] [address] | | | | | | [phone] | | | | | | | [...]
--- OUTSIDE RECORDS SUMMARY | ~2019-07-18 | XMS | Encounter Summary ---
Demographics + + + | Address | [address] | | | [place] [address] | + + + | Home Phone | | + + + | Preferred Language | Unknown | + + + | Marital Status | Single | + + + | Mandaen Affiliation | NON | + + + [...] Team Providers + +------+ + | Care Hoop Maker Machine Name | Role | Phone | + +------+ + | Heide Bhatti | PCP | | + +------+ + Encounter Details +--------+ + + + + | Date | Type | Department | Care Team | Description | +--------+ + + + + | 09/15/ | Telephone | Vascular Surgery | Kaveh Izaguirre MD | | | 2011 | | at [facility] 2nd Floor | [address] | | | | | [address] | [address] [place], | | | | | [address] Mailcode: | [place] [address] | | | | | [address] Physician's | [phone] | | | | | [place], | | | | | | [place] [address] | | | | | | [phone] | | | +--------+ + + + [...] | | | | | [address] [place], | | | | | | [place] [address] | | | | | | [phone] | | | | | | | | +--------+ + + + + | 06/18/ | Procedure | Surgery | | | | 2020 | Pass | | | | +--------+ + + + + documented as of this encounter Visit Diagnoses Not on filedocumented in this encounter"
--- OUTSIDE RECORDS SUMMARY | ~2019-07-18 | XMS | Encounter Summary ---
Demographics + + + | Address | [address] | | | [place] [address] | + + + | Home Phone [...] Providers + +------+ + | Care Hand Bindery Assembly Worker Name | Role | Phone | [...] + + | 06/09/ | Office | [facility] | Christine Ortega | Peripheral vascular | | 2019 | Visit | CARDIOLOGY [place] | [address] | disease (HCC) | | | | [address] | [address] | (Primary Dx); | | | | [address] | [place] [address] | Essential | | | | [place], [place] | [phone] | hypertension; S/P | | | | [address] | | carotid | | | | [phone] | | endarterectomy; | | | | [...] you fasting labs to be done at [facility],and hang on to slips , and combine [...] months documented in this encounter Progress Notes Chirstine Ortega FNP - 06/09/2019 10:00 AM PDTFormatting [...] a patient of ,who is her primary sports development officer, and last seen by her 019 Today, [...] coronary artery disease which was normal in [facility] in [place]. She rep orts she sustained damage to [...] outside for 10-15 minutes, and walk [facility] as well. Her Plavix had been [...] left side .. (Neurologist,Nayla Sandoval at [facility]) Denies history of seizures. Denies dizziness, [...] stopped with leg cramps. . Lives in [place] . Outpatient Medications Prior to Visit Medication [...] for: TOTEPI CARDIAC PROCEDURES/IMAGING Angiogram: Approximately 1994: ([facility]): Reported as normal by patient, eryn perez [...] T wave inversion aVL. Rate 119 bpm, NH 178 ms, QRS 60 ms, QTC 458 ms, tracing personally reviewed by me EK06/09/2019: Normal sinus rhythm. Noted low voltage QRS leads I, aVL, V1 with T wave i nversions aVL and T wave flattening V1. Rate 61 bpm, NH 186 ms, QRS 70 ms, QTC 396 [...] bpm, and may have had a previous SD. I reviewed her EKG in detail with [...] may contain inadvertent rec ognition errors. [facility]/10[facility]2019 Eran wallis in this encounter [...] MARCANO | | | | | | [place] [address] | | | | | | [phone] | | | | | | | [...] | | | PDT | ([facility]) Essential | results section. | | | | | hypertension S/P | | | | | | carotid | | | | | | endarterectomy | | | | | | Carotid occlusion, | | | | | | left Claudication, | | | | | | intermittent ([facility]) | | | | | | Other emphysema | | | | | | ([facility]) Tobacco | | | | [...] | | | | | by [facility] [place] Read Only, | | | | | | [facility] Brad ([id number]), | | | | | | rewrite editor Agustin Michel | | | | | | ([id number]) on 06/09/2019 | | | | | [...]
--- OUTSIDE RECORDS SUMMARY | ~2019-07-18 | XMS | Encounter Summary ---
Demographics + + + | Address | [address] | | | [place] [address] | + + + | Home Phone | | + + + | Preferred Language | Unknown | + + + | Marital Status | Single | + + + | Scientologist Affiliation | NON | + + + [...] Team Providers + +------+ + | Care Meat Stuffer Name | Role | Phone | + [...] [address] | | | | | [address] [place], | | | | | [place], | [place] [address] | | | | | [place] [address] | [phone] | | | | | [phone] | | | +--------+ + + + [...] grossly intact to commands Delt Bi Tri Road Engineer HF KE KF DF PF EHL Left [...] MD Neurosurgery Resident 3:30 PM, 12/14/2018 Pager #[phone] documented in this en counter Plan of Treatment +--------+ + + + + | Date | Type | Specialty | Care Team | Description | +--------+ + + + + | 06/17/ | Hospital | Adult Acute Care | Jarrod Barrett MD | | | 2019 | Encounter | | [address] | | | | | | [address] [place], | | | | | | [place] [address] | | | | | | [phone] | | | | | | | [...] MARQUAM | [address] | [place], [place] | | | [address] | [address] | [address] | | | TESTS | | | | + + + + + PROCEDURE NOTE (12/14/2018 2:52 PM PDT) + + + | Narrative | Performed At | + + + | Jarrod Barrett MD 12/17/2018 10:29 AM Date of Service: | | | 12/14/2018 Attending Surgeon: Jarrod | | | MD Nena Round Cutter Operator(s): | | | Lilia De La [...] | | 63-year-old female who presented to [facility] with low back [...] predicted by the preoperative MRI. Using a [place] and curette, | | | this was carefully dissected free from the common dural tube and | | | resected. Using a [place], we identified the right L5 pedicle and [...] | | | | | | y, [facility] & | | | | | | Science [facility] | | | | | | electronic [...] number | | | | | | [id number]. Spine, Right | | | | | [...] | | | | | determined by [facility] | | | | | [...] + + | Performing | Address | City[facility]State[facility] | Phone Number | | Organization | | | | + + + + + | [facility] | [address] | [place] [address] | | | PATHOLOGY | [address] [...] [facility] | [address] | [place] [address] | | | LUZ, ANJALI | [address] [...] [facility] | [address] | [place] [address] | | | SERVICES, CORE | PARK [...] | + + + + + | [facility] | [address] | [place] [address] | | | SERVICES, | [address] [...] | + + + + + | [facility] | [address] | [place] [address] | | | SERVICES, | [address] [...] 88 | 60 - 99 mg/dL | [facility] - | | | GLUCOSE, [...] SMITH | [address] | [place], [place] | | | [place] [facility] | [address] | [address] | | | TESTS | | | [...]
--- OUTSIDE RECORDS SUMMARY | ~2019-07-18 | XMS | Encounter Summary ---
Demographics + + + | Address | [address] | | | [place] [address] | + + + | Home Phone | | + + + | Preferred Language | Unknown | + + + | Marital Status | | + + + | Restoration Affiliation | Unknown | + + + | Race | Unknown | + + + | Ethnic Group | Unknown | + + + Author + + + | Author | [facility] | | | and [place] | + + + | Organization | [facility] | | [...] Team Providers + +------+ + | Care Wares Sorter Name | Role | Phone | + [...] | (medication is | | | | [place], | [place], | making her sick) | | | | [place] [address] | [place] [address] | | | | | [phone] | [phone] | | | | | | | [...] | | | | | [place] [address] | | | | | | [phone] | | | | | | | | +--------+---------+ + + + documented as of this encounter Visit Diagnoses Not on filedocumented in this encounter"
--- OUTSIDE RECORDS SUMMARY | ~2019-07-18 | XMS | Encounter Summary ---
Demographics + + + | Address | [address] | | | [place] [address] | + + + | Home Phone | | + + + | Preferred Language | Unknown | + + + | Marital Status | Single | + + + | Judaism Affiliation | NON | + + + [...] Team Providers + +------+ + | Care Table Inspector Name | Role | Phone | + +------+ + | Heide Bhatti | PCP | | + +------+ + Encounter Details +--------+ + + + + | Date | Type | Department | Care Team | Description | +--------+ + + + + | 01/05/ | Media Reporter | Vascular Surgery | Kaveh Izaguirre MD | | | 2011 | | at [facility] 2nd Floor | [address] | | | | | [address] | [address] [place], | | | | | [address] Mailcode: | [place] [address] | | | | | [address] Physician's | [phone] | | | | | [place], | | | | | | [place] [address] | | | | | | [phone] | | | +--------+ + + + [...] | | | | | [address] [place], | | | | | | [place] [address] | | | | | | [phone] | | | | | | | | +--------+ + + + + | 06/18/ | Procedure | Surgery | | | | 2020 | Pass | | | | +--------+ + + + + documented as of this encounter Visit Diagnoses Not on filedocumented in this encounter"
--- OUTSIDE RECORDS SUMMARY | ~2019-07-18 | XMS | Encounter Summary ---
Demographics + + + | Address | [address] | | | [place] [address] | + + + | Home Phone [...] Team Providers + +------+ + | Care Posting Machine Operator Name | Role | Phone [...] | | | | | Spinal | [address] | | | | | | stenosis of | [place], [place] | | | | | | lumbar | [address] | | | | | | region with | Phone: | | | | | | radiculopath | [phone] | | | | | | y | Fax: | | | | | | Procedures | [phone] | | | | | | PHYSICAL [...] | | Ave Mailcode: | [address] [place], | | | | | [facility] | [place] [address] | | | | | and Aam[place], | [phone] | | | | | [facility] [address] | | | | | | [place], [place] | | | | | | [address] | | | | | | [phone] | | | +--------+ + + + [...] | | | | | [address] [place], | | | | | | [place] [address] | | | | | | [phone] | | | | | | | [...]
--- OUTSIDE RECORDS SUMMARY | ~2019-07-18 | XMS | Encounter Summary ---
Demographics + + + | Address | [address] | | | [place] [address] | + + + | Home Phone | | + + + | Preferred Language | Unknown | + + + | Marital Status | Single | + + + | Temple Affiliation | NON | + + + [...] Team Providers + +------+ + | Care Production Truck Driver Name | Role | Phone | + +------+ + | Litzy Castillo MD | PCP | | + +------+ + Encounter Details +--------+ + + + + | Date | Type | Department | Care Team | Description | +--------+ + + + + | 06/17/ | Anesthesia | Preoperative | Irina Green | | | 2018 | Event | [facility] at | S, BEREAVEMENT PROGRAM COORDINATOR [address] | | | | | [facility] | [facility] | | | | | [address] | [place], [place] | | | | | Mail Code: OC8PM | [address] | | | | | [facility] | [phone] | | | | | and Healing, | | | | | | Building [address] | | | | | | [place], [place] | | | | | | [address] | | | | | | [phone] | | | +--------+ + + + [...] | | | | | [address] [place], | | | | | | [place] [address] | | | | | | [phone] | | | | | | | | +--------+ + + + + | 06/18/ | Procedure | Surgery | | | | 2019 | Pass | | | | +--------+ + + + + documented as of this encounter Visit Diagnoses Not on filedocumented in this encounter"
--- OUTSIDE RECORDS SUMMARY | ~2019-07-18 | XMS | Encounter Summary ---
Demographics + + + | Address | [address] | | | [place] [address] | + + + | Home Phone [...] Team Providers + +------+ + | Care Home Care Nurse Name | Role | Phone | [...] Visit | Medicine Clinic at | S, BOOT AND SHOE LABORER [address] | (Primary Dx); S/P | | | | [facility] | [facility] [address] [facility] [address] | carotid | | | | [address] | [facility] [place] | endarterectomy; TIA | | | | Mail Code: OC8PM | [address] | (transient ischemic | | | | [facility] | [phone] | attack); | | | | and Healing, | | Claudication, | | | | Building 2 | | intermittent (HCC); | | | | [place], [place] | | PVD (peripheral | | | | [address] | | vascular disease) | | | | [phone] | | (HCC); H/O | | | [...] the test is negative, then no call! [facility] wipe packet and instructions on proper skin [...] sit, stand or walk. [facility] Surgery Check in Time: The Preoperative Medicine [...] after office hours, call the [facility] air drill operator at [phone] and ask them to page him or [...] able to contact her son Jarad at [phone] and he will try to get a [...] patch on 11/20/[address] Izaguirre at [facility]. Patient was started on ASA 325mg PO Daily at that time. She then had recurrent TIAs in 05/2011 and w as seen by neurology at [facility]. Per neurology note from 05/28/2011, "Patient's symptoms are lik dee 2/2 verebrobasilar insufficiency versus anterior circulation. 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 Patient monitored ere and discharged home [...] patch on 11/20/[address] Izaguirre at [facility]. Patient was started on ASA 325mg PO Daily at that time. Recurrent TIAs in 05/2011 and seen by neurology at [facility]. Per neurology note from 05/28/2011, "Patient's symptoms are likely 2/2 verebrobasilar insufficiency versus anterior circulation. 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 Patient monitored there and discharged home [...] of sleep apnea Risk factors for sleep gis scientist ea: Pt SNORE's loudly (louder than talking) [...] longstanding since asthma attack in 2003 in [place]. No recent cardiology evaluation. HTN - on atenolol and valsartan HLD - on statin PAD - s/p right aorto-fem bypass in 1997 Carotid artery stenosis s/p right CEA in 2009. No recent carotid duplex. Functional Capaci ty: Low PAD carotid artery stenosis hypertension well controlled GI/Hepatic: Within Defined Limits except as noted below Renal: Within Defined Limits except as noted below Urology/Energy Conservation Director: Within Defined Limits except as noted below [...] patch on 11/20/[address] Izaguirre at [facility]. Patient was sta rted on ASA 325mg PO Daily at that time. Recurrent TIAs in 05/2011 and seen by neurology at [facility]. Per neurology note from 05/28/2011, "Patient's symptoms are likely 2/2 verebrobasilar insufficiency versus anterior circulation . 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 Patient has areas of intracranial stenosis, and based on most recent SAMMPRIS study, maximum medical therapy is superior to intracranial stenting." Patient was started on Plavix and ASA at [facility]. She stopped Plavix after 3 months and continues ASA. Acute CVA s/p TPA on 02/25/2013 and transferred to [facility] from [facility] in [place], [place]. Patient monitored there and discharged home [...] occlusion, left Carotid stenosis, right Claudication, intermittent ([facility]) 05/28/2011 CVA (cerebral vascular accident) ([facility]) 02/25/2013 Double vision right eye Emphysema lung ([facility]) ETOH abuse HTN (hypertension) Hyperlipidemia ICAO (internal carotid artery occlusion), left Intracranial carotid stenosis Lumbago PAD (peripheral artery disease) ([facility]) Personal history of tobacco use Smoking TIA [...] notified SHAYE Cook and patient's PCP, Dr. Castilol. Mikaela Castillo will follow-up with patient and [...] patch on 11/20/[address] Izaguirre at [facility] . Patient was started on ASA 325mg PO Daily at that time. Recurrent TIAs in 05/2011 and seen by neurology at [facility]. Per neurology note from 05/28/2011, "Patient's symptoms are likely 2/2 verebrobasilar insufficiency versus anterior circulation. 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 Patient monitored there and discharged home [...] contribute to this patient's care. CECELIA Rivas [facility] PREOPER[facility]IVE MEDIC[facility] AT [facility] 4TH FLOOR [address] [facility] [address] I advised the patient regarding [...] | | | | | [address] [place], | | | | | | [place] [address] | | | | | | [phone] | | | | | | | [...] + +--------+ + + | COMMUNICATION TO [facility] | Procedures | Routin | Preop examination | Ordered: 06/17/2018 | | LAB DRAW | | e | | | + + +--------+ + + documented as of this encounter Procedures + +--------+ + + + | Procedure Name | Priori | Date/Time | Associated Diagnosis | Comments | | | ty | | | | + +--------+ + + + | MN COLLECTION VENOUS | Routin | 06/17/2018 | [...] + + + + + | [facility] | [address] | [place] [address] | | | SERVICES, CORE | [address]IL[address] [...] [facility] | [address] | [place] [address] | | | SERVICES, | [address] [...] | + + + + + | [facility] | [address] | [place] [address] | | | SERVICES, | [address] [...] [facility] | [address] | [place] [address] | | | SERVICES, ANJALI | SILVIA [...] - | | | | | | [facility] | | + +-------+ + + + + + | Specimen | + + | Blood - Blood | | (substance) | + + + + + + + | Performing | Address | City/State/Zipcode | Phone Number | | Organization | | | | + + + + + | [facility] | [address] | [place] [address] | | | [place] | | | [...] | | | LABORATORY | | | [place] | | | SERVICES, | | | [...] | + + + + + | [facility] | [address] | [place] [address] | | | SERVICES, CORE | SILVIA [...] DEPT OF | [address] | [place], [place] | | | CARDIOLOGY | [address] | [address] | | + + + + + [...]
--- OUTSIDE RECORDS SUMMARY | ~2019-07-18 | XMS | Encounter Summary ---
Demographics + + + | Address | [address] | | | [place] [address] | + + + | Home Phone | | + + + | Preferred Language | Unknown | + + + | Marital Status | | + + + | Taoist Affiliation | Unknown | + + + | Race | Unknown | + + + | Ethnic Group | Unknown | + + + Author + + + | Author | [facility] | | | and [place] | + + + | Organization | [facility] | | | and [...] Providers + +------+ + | Care Farm Management Supervisor Name | Role | Phone | [...] | | | [address] | [facility], | | | | | [place], [place] | [place] [address] | | | | | [address] | [phone] | | | | | [phone] | | | +--------+ + + + [...] [address] | | | | | | [place] [address] | | | | | | [phone] | | | | | | | | +--------+---------+ + + + documented as of this encounter Visit Diagnoses Not on filedocumented in this encounter"
--- OUTSIDE RECORDS SUMMARY | ~2019-07-18 | XMS | Encounter Summary ---
Demographics + + + | Address | [address] | | | [place] [address] | + + + | Home Phone [...] Team Providers + +------+ + | Care Field Service Technician Poultry Name | Role | Phone | + [...] Refill Request | | 2019 | | [facility] [address] | [address] | (corrected rx order | | | | Ave Mailcode: CH8N | [place] [facility], | ) | | | | [facility] | [place] [address] | | | | | and [facility], | [phone] | | | | | [facility] | | | | | | [place], [place] | | | | | | [address] | | | | | | [phone] | | | +--------+ + + + [...] | | | | | [address] [place], | | | | | | [place] [address] | | | | | | [phone] | | | | | | | | +--------+ + + + + | 06/18/ | Procedure | Surgery | | | | 2019 | Pass | | | | +--------+ + + + + documented as of this encounter Visit Diagnoses Not on filedocumented in this encounter"
--- OUTSIDE RECORDS SUMMARY | ~2019-07-18 | XMS | Encounter Summary ---
Demographics + + + | Address | [address] | | | [place] [address] | + + + | Home Phone [...] Team Providers + +------+ + | Care Record Tester Name | Role | Phone | + [...] Double vision | | 2018 | | [facility] [address] | [address] | | | | | [place] Mailcode: | [address] [facility] | | | | | [facility] | [place] [address] | | | | | and [place], | [phone] | | | | | [facility] [address] | | | | | | [place], [place] | | | | | | [address] | | | | | | [phone] | | | +--------+ + + + [...] | | | | | [address] [place], | | | | | | [place] [address] | | | | | | [phone] | | | | | | | | +--------+ + + + + | 06/18/ | Procedure | Surgery | | | | 2020 | Pass | | | | +--------+ + + + + documented as of this encounter Visit Diagnoses Not on filedocumented in this encounter"
--- OUTSIDE RECORDS SUMMARY | ~2019-07-18 | XMS | Encounter Summary ---
Demographics + + + | Address | [address] | | | [place] [address] | + + + | Home Phone [...] Team Providers + +------+ + | Care Physicist Astrophysics Name | Role | Phone | + [...] | | | | | without | [place], [place] | [address] | | | | | mention of | [address] | Physician's | | | | | cerebral | Phone: | Pavilion | | | | | infarction | [phone] | [place], [place] | | | | | [employer]ros[employer]ero | Fax: | [address] | | | | | sis of | [phone] | Phone: | | | | | [place] | | [phone] | | | | | arteries of | | Fax: | | | | | the | | [phone] | | | | | extremities | [...] | | | | | | [address]enna [place], | | | | | | [place] [address] | | | | | | [phone] | | | +--------+ + + + [...] | | | | | [address] [place], | | | | | | [place] [address] | | | | | | [phone] | | | | | | | [...] of | | | | | | [place] arteries of | | | | | [...] | | | | | CAROTID | [id number] Name: | | | | | DUPLEX | DARCY ALVARADO Birthday: | | | | | COMPLETE | 1955 Sex: F | | | | | BILATERAL | Alias: Patient Location: | | | | | | [id number]: | | | | | | Outpatient [...] # | | | | | | [id number] | | | | | | RESULT:CEREBROVASCULAR [...]
--- OUTSIDE RECORDS SUMMARY | ~2019-07-18 | XMS | Encounter Summary ---
Demographics + + + | Address | [address] | | | [place] [address] | + + + | Home Phone | | + + + | Preferred Language | Unknown | + + + | Marital Status | Single | + + + | Sikhism Affiliation | NON | + + + | Race | White | + + + | Ethnic Group | Not or | + + + Author + + + | Author | [facility] | + + + | Organization | [facility] | + + + | [...] Team Providers + +------+ + | Care Intermission Coordinator Name | Role | Phone | [...] + + | 09/17/ | Telephone | [facility] | Iván, | | | 2011 | | [facility] [place] | [place] | | | | | [facility] | | | | | | [address] | | | | | | [address] Mailcode: | | | | | | [address] | | | | | | [facility] | | | | | | floor [place], [place] | | | | | | [address] | | | | | | [phone] | | | +--------+ + + + [...] | | | | | [address] [place], | | | | | | [place] [address] | | | | | | [phone] | | | | | | | | +--------+ + + + + | 06/18/ | Procedure | Surgery | | | | 2020 | Pass | | | | +--------+ + + + + documented as of this encounter Visit Diagnoses Not on filedocumented in this encounter"
--- OUTSIDE RECORDS SUMMARY | ~2019-07-18 | XMS | Encounter Summary ---
Demographics + + + | Address | [address] | | | [place] [address] | + + + | Home Phone [...] Team Providers + +------+ + | Care Match Marker Name | Role | Phone | + +------+ + | Litzy Castillo MD | PCP | | + +------+ + Encounter Details +--------+ + + + + | Date | Type | Department | Care Team | Description | +--------+ + + + + | 08/28/ | Hospital | [facility] | Conversion | Pain | | 2019 | Encounter | CONVERSION [address] | Transaction, | | | | | [address] | Provider Unknown | | | | | [place], [place] | [phone] | | | | | [address] | | | | | | [phone] | | | +--------+ + + + [...] [address] | | | | | | [place] [address] | | | | | | [phone] | | | | | | | [...]
--- OUTSIDE RECORDS SUMMARY | ~2019-07-18 | XMS | Encounter Summary ---
Demographics + + + | Address | [address] | | | [place] [address] | + + + | Home Phone | | + + + | Preferred Language | Unknown | + + + | Marital Status | Single | + + + | Tenriism Affiliation | NON | + + + [...] Team Providers + +------+ + | Care Marine Reporter Name | Role | Phone | + [...] | | | | | [place], | | | | | | [place] [address] | | | | | | [phone] | | | | | | | | +--------+ + + + + | 06/18/ | Procedure | Surgery | | | | 2019 | Pass | | | | +--------+ + + + + documented as of this encounter Visit Diagnoses Not on filedocumented in this encounter"
--- OUTSIDE RECORDS SUMMARY | ~2019-07-18 | XMS | Encounter Summary ---
Demographics + + + | Address | [address] | | | [place] [address] | + + + | Home Phone | | + + + | Preferred Language | Unknown | + + + | Marital Status | | + + + | Mormonism Affiliation | Unknown | + + + | Race | Unknown | + + + | Ethnic Group | Unknown | + + + Author + + + | Author | [facility] | | | and [place] | + + + | Organization | [facility] | | [...] Team Providers + +------+ + | Care Joinery Patternmaker Name | Role | Phone | [...] | | | [address] | [facility], | | | | | [place], [place] | [place] [address] | | | | | [address] | [phone] | | | | | [phone] | | | +--------+ + + + [...] MARCANO | | | | | | [place] [address] | | | | | | [phone] | | | | | | | | +--------+---------+ + + + documented as of this encounter Visit Diagnoses Not on filedocumented in this encounter"
--- OUTSIDE RECORDS SUMMARY | ~2019-07-18 | XMS | Encounter Summary ---
Demographics + + + | Address | [address] | | | [place] [address] | + + + | Home Phone | | + + + | Preferred Language | Unknown | + + + | Marital Status | | + + + | Baptism Affiliation | Unknown | + + + [...] Team Providers + +------+ + | Care Solvent Recoverer Name | Role | Phone | + [...] | Appointment | | 2018 | | [facility] | TERRY Pacheco | (Telemedicine) | | | | [facility] [address] | | | | | | [address] [facility], | | | | | | [place] [address] | | | | | | [phone] | | | +--------+ + + + [...] MARCANO | | | | | | [place] [address] | | | | | | [phone] | | | | | | | | +--------+---------+ + + + documented as of this encounter Visit Diagnoses Not on filedocumented in this encounter"
--- OUTSIDE RECORDS SUMMARY | ~2019-07-18 | XMS | Encounter Summary ---
Demographics + + + | Address | [address] | | | [place] [address] | + + + | Home Phone | | + + + | Preferred Language | Unknown | + + + | Marital Status | Single | + + + | Synagogue Affiliation | NON | + + + [...] | + + +---------+ + | Waleska Abbee | ECON | Unknown | | + + +---------+ + | Jarad Abebe | ECON | Unknown | | + + +---------+ + | Daniele Whitten | ECON | Unknown | | + + +---------+ + Care Team Providers + +------+ + | Care Event Coordinator Name | Role | Phone | [...] Treatment Planning | | 2018 | | [facility] [address] | SHAYE Beyer | | | | | Cord[place] Mailcode: | [address] | | | | | [facility] | [place], [place] | | | | | [place], | [address] | | | | | [place] [address] | [phone] | | | | | [place], [place] | | | | | | [address] | | | | | | [phone] | | | +--------+ + + + [...] | | | | | [place], | | | | | | [place] [address] | | | | | | [phone] | | | | | | | | +--------+ + + + + | 06/18/ | Procedure | Surgery | | | | 2019 | Pass | | | | +--------+ + + + + documented as of this encounter Visit Diagnoses Not on filedocumented in this encounter"
--- OUTSIDE RECORDS SUMMARY | ~2019-07-18 | XMS | Encounter Summary ---
Demographics + + + | Address | [address] | | | [place] [address] | + + + | Home Phone [...] Team Providers + +------+ + | Care User Acceptance Tester Name | Role | Phone | + +------+ + | Litzy Castillo MD | PCP | | + +------+ + Encounter Details +--------+ + + + + | Date | Type | Department | Care Team | Description | +--------+ + + + + | 08/28/ | Hospital | [facility] | Conversion | Pain | | 2019 | Encounter | CONVERSION [address] | Transaction, | | | | [address] | Provider Unknown | | | | | [place], [place] | [phone] | | | | | [address] | | | | | | [phone] | | | +--------+ + + + [...] MARCANO | | | | | | [place] [address] | | | | | | [phone] | | | | | | | [...]
--- OUTSIDE RECORDS SUMMARY | ~2019-07-18 | XMS | Encounter Summary ---
Demographics + + + | Address | [address] | | | [place] [address] | + + + | Home Phone | | + + + | Preferred Language | Unknown | + + + | Marital Status | | + + + | Presybeterian Affiliation | Unknown | + + + | Race | Unknown | + + + | Ethnic Group | Unknown | + + + Author + + + | Author | [facility] | | | and [place] | + + + | Organization | [facility] | | [...] Team Providers + +------+ + | Care Outcome Analyst Name | Role | Phone | + +------+ + PCP | Unavailable | + +------+ + Encounter Details +--------+ + + + + | Date | Type | Department | Care Team | Description | +--------+ + + + + | 07/20/ | Hospital | [facility] | Matheus Corado MD | | | 2011 | Encounter | HOSPITAL LAB[facility]ORY | [address] | | | | | [address] | [place], [place] | | | | | [place], [place] | [address] | | | | | [address] | | | | | | [phone] | | | +--------+ + + + [...] | | | | | [place] [address] | | | | | | [phone] | | | | | | | | +--------+---------+ + + + documented as of this encounter Visit Diagnoses Not on filedocumented in this encounter"
--- OUTSIDE RECORDS SUMMARY | ~2019-07-18 | XMS | Encounter Summary ---
Demographics + + + | Address | [address] | | | [place] [address] | + + + | Home Phone | | + + + | Preferred Language | Unknown | + + + | Marital Status | Single | + + + | Orthodox Affiliation | NON | + + [...] Team Providers + +------+ + | Care Sieve Maker Name | Role | Phone | + +------+ + | Litzy Castillo MD | PCP | | + +------+ + Encounter Details +--------+ + + + + | Date | Type | Department | Care Team | Description | +--------+ + + + + | 08/19/ | Telephone | [facility] at | Jarrod Barrett MD | | | 2018 | | [facility] [address] | [address] | | | | | Cord[place] Mailcode: | [place], | | | | | [facility] | [place] [address] | | | | | and [place], | [phone] | | | | | [address] | | | | | | [place], [place] | | | | | | [address] | | | | | | [phone] | | | +--------+ + + + [...] | | | | | Ana Art [facility] | | | | | | [place] [address] | | | | | | [phone] | | | | | | | | +--------+ + + + + | 06/18/ | Procedure | Surgery | | | | 2020 | Pass | | | | +--------+ + + + + documented as of this encounter Visit Diagnoses Not on filedocumented in this encounter"
--- OUTSIDE RECORDS SUMMARY | ~2019-07-18 | XMS | Encounter Summary ---
Demographics + + + | Address | [address] | | | [place] [address] | + + + | Home Phone [...] Team Providers + +------+ + | Care Splitting Machine Operator Name | Role | Phone [...] | | | [place] | [address] | | | | | [address] | [phone] | | | | | [phone] | | | +--------+ + + + [...] | | | | | [place] [address] | | | | | | [phone] | | | | | | | | +--------+---------+ + + + documented as of this encounter Visit Diagnoses Not on filedocumented in this encounter"
--- OUTSIDE RECORDS SUMMARY | ~2019-07-18 | XMS | Encounter Summary ---
Demographics + + + | Address | [address] | | | [place] [address] | + + + | Home Phone [...] Author + + + | Author | [facility] | + + + | Organization | [facility] | + + + | [...] Providers + +------+ + | Care Clinical Outcomes Manager Name | Role | Phone | + +------+ + | Litzy Castillo MD | PCP | | + +------+ + Encounter Details +--------+ + + + + | Date | Type | Department | Care Team | Description | +--------+ + + + + | 12/14/ | Procedure | 6A Intra Op [facility] | | | | 2019 | Pass | [facility] | | | | | | Admitting Desk | | | | | | Located on the 9th | | | | | | floor [address] [facility] | | | | | | [place] | | | | | | [place], [place] | | | | | | [address] | | | +--------+ + + + [...] | | | | | [place], | | | | | | [place] [address] | | | | | | [phone] | | | | | | | | +--------+ + + + + | 06/18/ | Procedure | Surgery | | | | 2020 | Pass | | | | +--------+ + + + + documented as of this encounter Visit Diagnoses Not on filedocumented in this encounter"
--- OUTSIDE RECORDS SUMMARY | ~2019-07-18 | XMS | Clinical Summary ---
Demographics + + + | Address | [address] | | | [place] [address] | + + + | Home Phone [...] + + | Author | [facility] | | | and [place] | + + + | Organization | [facility] | | | [...] Team Providers + +------+ + | Care Medical Pathology Teacher Name | Role | Phone | [...] | | | | | [place] [address] | | | | | | [phone] | | | | | | | [...] the | | | | PDT | ([facility]) Essential | results section. | | | | | hypertension S/P | | | | | | carotid | | | | | | endarterectomy | | | | | | Carotid occlusion, | | | | | | left Claudication, | | | | | | intermittent ([facility]) | | | | | | Other emphysema | | | | | | ([facility]) Tobacco | | | [...] | | | | | by [facility] [place] Read Only, | | | | | | [facility] Raj (744), | | | | | | image editor Agustin Michel | | | | | | ([id number]) on 06/09/2019 | | | | | [...] +--------+ +---------+--------+ | MEDICARE | MEDICA | [id number] | 01/23/20 | [phone] | | Medica | | | RE | | 09-Pre | 5 | | re | | | PART A | | sent | | | | | | AND B | | | | | | + +--------+ +--------+ +---------+--------+ | MEDICARE | MEDICA | [id number] | 01/23/20 | [phone] | | Medica | | | RE | | 09-Pre | 5 | | re | | | PART A | | sent | | | | | | AND B | | | | | | + +--------+ +--------+ +---------+--------+ | | TRICAR | [id number] | 06/02/ | [phone] | | Indemn | | | E FOR | | 2019-P | 0 | | ity | | | LIFE | | resent | | | | + +--------+ +--------+ +---------+--------+ | MEDICAID [place] | MEDICA | [id number] | 06/02/ | [phone] | | Medica [...] | | al/Fam | | 1955 | [phone] | [address] [place], | | | [place] | | | [address] (Home) | [place] [address] | + +--------+ +--------+ + + | Darcy Sun | Person | Self | [birth year] | [address] | | | al/Fam | | 1955 | [phone] | [address] [place], | | | [place] | | | [address] (Home) | [place] [address] | + +--------+ +--------+ + + Advance Directives + + + + + | Type | Date Recorded | Patient | Explanation | | | | Spiral Weaver | | + + + + + | Power of | | | | | Track Vehicle Repairer | | | | + + + + + | Advance | | | | | Directive | | | | + + + + +"
--- OUTSIDE RECORDS SUMMARY | ~2019-07-18 | XMS | Encounter Summary ---
Demographics + + + | Address | [address] | | | [place] [address] | + + + | Home Phone [...] + + + | Author | [facility] | + + + | Organization | [facility] | + + + | [...] Team Providers + +------+ + | Care Party Plan Selling Distributor Name | Role | Phone | + [...] | | | | | Procedures | [place], [place] | | | | | | MRI SPINE | [address] | | | | | | LUMBAR WO | Phone: | | | | | | CONTRAST | [phone] | | | | | | | Fax: | | | | | | | [phone] | | + +--------+ + + + [...] | | | | | Procedures | [place], [place] | | | | | | CONSULT TO | [address] | | | | | | PAIN | Phone: | | | | | | MANAGEMENT | [phone] | | | | | | | Fax: | | | | | | | [phone] | | + +--------+ + + + [...] (new symptoms) | | 2018 | | [facility] [address] | [address] | | | | | Cord[place] Mailcode: | [place], | | | | | [facility] | [place] [address] | | | | | and Healing, | [phone] | | | | | [facility] [address] | | | | | | [place], [place] | | | | | | [address] | | | | | | [phone] | | | +--------+ + + + [...] | | | | | [place], | | | | | | [place] [address] | | | | | | [phone] | | | | | | | [...]
--- OUTSIDE RECORDS SUMMARY | ~2019-07-18 | XMS | Encounter Summary ---
Demographics + + + | Address | [address] | | | [place] [address] | + + + | Home Phone | | + + + | Preferred Language | Unknown | + + + | Marital Status | | + + + | Christianity Affiliation | Unknown | + + + | Race | Unknown | + + + | Ethnic Group | Unknown | + + + Author + + + | Author | [facility] | | | and [place] | + + + | Organization | [facility] | | [...] Team Providers + +------+ + | Care Superintendent Quarry Name | Role | Phone | + +------+ + | Litzy Castillo MD | PCP | | + +------+ + Encounter Details +--------+ + + + + | Date | Type | Department | Care Team | Description | +--------+ + + + + | 08/28/ | Hospital | [facility] | Conversion | Pain | | 2019 | Encounter | CONVERSION [address] | Transaction, | | | | [address] | Provider Unknown | | | | | [place], [place] | [phone] | | | | | [address] | | | | | | [phone] | | | +--------+ + + + [...] 09/08/ | Office | Cardiology | Christine Otrega | | | 2020 | Visit | | [address] | | | | | | [address] | | | | | | [place] [address] | | | | | | [phone] | | | | | | | [...]
--- OUTSIDE RECORDS SUMMARY | ~2019-07-18 | XMS | Encounter Summary ---
Demographics + + + | Address | [address] | | | [place] [address] | + + + | Home Phone | | + + + | Preferred Language | Unknown | + + + | Marital Status | | + + + | Hindu Affiliation | Unknown | + + + | Race | Unknown | + + + | Ethnic Group | Unknown | + + + Author + + + | Author | [facility] | | | and [place] | + + + | Organization | [facility] | | | and [...] Team Providers + +------+ + | Care Heddle Machine Operator Name | Role | Phone [...] | (medication is | | | | [place], | [place], | making her sick) | | | | [place] [address] | [place] [address] | | | | | [phone] | [phone] | | | | | | | [...] | | | | | [place] [address] | | | | | | [phone] | | | | | | | | +--------+---------+ + + + documented as of this encounter Visit Diagnoses Not on filedocumented in this encounter"
--- OUTSIDE RECORDS SUMMARY | ~2019-07-18 | XMS | Encounter Summary ---
Demographics + + + | Address | [address] | | | [place] [address] | + + + | Home Phone | | + + + | Preferred Language | Unknown | + + + | Marital Status | | + + + | Zoroastrian Affiliation | Unknown | + + + | Race | Unknown | + + + | Ethnic Group | Unknown | + + + Author + + + | Author | [facility] | | | and [place] | + + + | Organization | [facility] | | | [...] Providers + +------+ + | Care Cattle Knocker Name | Role | Phone | + +------+ + | Litzy Castillo MD | PCP | | + +------+ + Encounter Details +--------+ + + + + | Date | Type | Department | Care Team | Description | +--------+ + + + + | 08/27/ | Hospital | [facility] | Conversion | Diagnosis unknown | | 2019 | Encounter | CONVERSION [address] | Transaction, | | | | | [address] | Provider Unknown | | | | | [place], [place] | [phone] | | | | | [address] | | | | | | [phone] | | | +--------+ + + + [...] MARCANO | | | | | | [place] [address] | | | | | | [phone] | | | | | | | [...]
--- OUTSIDE RECORDS SUMMARY | ~2019-07-18 | XMS | Encounter Summary ---
Demographics + + + | Address | [address] | | | [place] [address] | + + + | Home Phone [...] Team Providers + +------+ + | Care Real Estate Management Specialist Name | Role | Phone | [...] Pharmacy | | | | | | [address] | | | | | | [place], | | | | | | [place] [address] | | | | | | [phone] | | | +--------+ + + + [...] | | | | | [place], | | | | | | [place] [address] | | | | | | [phone] | | | | | | | | +--------+ + + + + | 06/18/ | Procedure | Surgery | | | | 2020 | Pass | | | | +--------+ + + + + documented as of this encounter Visit Diagnoses Not on filedocumented in this encounter"
--- OUTSIDE RECORDS SUMMARY | ~2019-07-18 | XMS | Encounter Summary ---
Demographics + + + | Address | [address] | | | [place] [address] | + + + | Home Phone [...] Team Providers + +------+ + | Care Fraud Representative Name | Role | Phone | + +------+ + | Litzy Castillo MD | PCP | | + +------+ + Encounter Details +--------+ + + + + | Date | Type | Department | Care Team | Description | +--------+ + + + + | 08/28/ | Hospital | [facility] IP | Conversion | Pain | | 2019 | Encounter | CONVERSION [address] | Transaction, | | | | | [address] | Provider Unknown | | | | | [place], [place] | [phone] | | | | | [address] | | | | | | [phone] | | | +--------+ + + + [...] MARCANO | | | | | | [place] [address] | | | | | | [phone] | | | | | | | [...]
--- OUTSIDE RECORDS SUMMARY | ~2019-07-18 | XMS | Encounter Summary ---
Demographics + + + | Address | [address] | | | [place] [address] | + + + | Home Phone [...] Team Providers + +------+ + | Care Broth Mixer Name | Role | Phone | + +------+ + | Litzy Castillo MD | PCP | | + +------+ + Encounter Details +--------+ + + + + | Date | Type | Department | Care Team | Description | +--------+ + + + + | 08/27/ | Hospital | [facility] | Conversion | Diagnosis unknown | | 2019 | Encounter | CONVERSION [address] | Transaction, | | | | | [address] | Provider Unknown | | | | | [place], [place] | [phone] | | | | | [address] | | | | | | [phone] | | | +--------+ + + + [...] MARCANO | | | | | | [place] [address] | | | | | | [phone] | | | | | | | [...]
--- OUTSIDE RECORDS SUMMARY | ~2019-07-18 | XMS | Encounter Summary ---
Demographics + + + | Address | [address] | | | [place] [address] | + + + | Home Phone [...] Team Providers + +------+ + | Care Grinder Operator External Tool Name | Role | Phone | + +------+ + | Litzy Csatillo MD | PCP | | + +------+ + Encounter Details +--------+ + + + + | Date | Type | Department | Care Team | Description | +--------+ + + + + | // | Outside | UNKNOWN DEPARTMENT | Other, Faculty | | | 2018 | Records | [address] [facility] | [phone] | | | | | [place] [address] | | | | | | [place], [place] | | | | | | [address] | | | +--------+ + + + [...] | | | | | [place], | | | | | | [place] [address] | | | | | | [phone] | | | | | | | [...]
--- OUTSIDE RECORDS SUMMARY | ~2019-07-18 | XMS | Encounter Summary ---
Demographics + + + | Address | [address] | | | [place] [address] | + + + | Home Phone | | + + + | Preferred Language | Unknown | + + + | Marital Status | | + + + | Confucianism Affiliation | Unknown | + + + | Race | Unknown | + + + | Ethnic Group | Unknown | + + + Author + + + | Author | [facility] | | | and [place] | + + + | Organization | [facility] | | [...] Providers + +------+ + | Care Building Components Designer Name | Role | Phone | + +------+ + PCP | Unavailable | + +------+ + Encounter Details +--------+ + + + + | Date | Type | Department | Care Team | Description | +--------+ + + + + | 07/20/ | Hospital | [facility] | Matheus Corado MD | | | 2011 | Encounter | HOSPITAL LABORATORY | [address] | | | | | [address] | [place], [place] | | | | | [place], [place] | [address] | | | | | [address] | | | | | | [phone] | | | +--------+ + + + [...] | | | | | [place] [address] | | | | | | [phone] | | | | | | | | +--------+---------+ + + + documented as of this encounter Visit Diagnoses Not on filedocumented in this encounter"
--- OUTSIDE RECORDS SUMMARY | ~2019-07-18 | XMS | Encounter Summary ---
Demographics + + + | Address | [address] | | | [place] [address] | + + + | Home Phone [...] Author + + + | Author | [facility] | + + + | Organization | [facility] | + + + | Address [...] Team Providers + +------+ + | Care Engine Builder Name | Role | Phone | [...] L4-5 LAMINECTOMY; | | 2018 | | [facility] | [address] | | | | | Admitting Desk | Silvia Art [facility] | | | | | [facility] on the | [place] [address] | | | | | floor [address] | [phone] | | | | | [address] | | | | | | [place], [place] | | | | | | [address] | | | +--------+---------+ + + + [...] grossly intact to commands Delt Bi Tri Proposal Engineer HF KE KF DF PF EHL [...] MD Neurosurgery Resident 3:30 PM, 12/14/2018 Pager #[phone] documented in this en counter Plan of Treatment +--------+ + + + + | Date | Type | Specialty | Care Team | Description | +--------+ + + + + | 06/17/ | Hospital | Adult Acute Care | Jarrod Barrett MD | | | 2019 | Encounter | | [address] | | | | | | [place], | | | | | | [place] [address] | | | | | | [phone] | | | | | | | [...] [place] | [address] | [place], [place] | | | [facility]IE [facility] OF CARE | [address] | [address] | | | TESTS | | | | + + + + + PROCEDURE NOTE (12/14/2018 2:52 PM PDT) + + + | Narrative | Performed At | + + + | Jarrod Barrett MD 12/17/2018 10:29 AM Date of Service: | | | 12/14/2018 Attending Surgeon: Jarrod | | | MD [facility] Transfer Liaison(s): | | | Lilia De La Torre [...] | | 63-year-old female who presented to [facility] with low back | | [...] predicted by the preoperative MRI. Using a Hays and curette, | | | this was [...] | | | | | | y, [facility] | [facility] | [facility] | [...] number | | | | | | [id number].A. Spine, Right | | | | | [...] | | | | | determined by [facility] | | | | | | laboratories. [...] [place] DEPARTMENT | [address] | [place] [address] | | | PATHOLOGY | [address] [...] [facility] | [address] | [place] [address] | | | SERVICES, CORE | [address] [...] [facility] | [address] | [place] [address] | | | SERVICES, CORE | [address] [...] | + + + + + | [facility] | [address] | [place] [address] | | | SERVICES, | [address] [...] | + + + + + | [facility] | [address] | [place] [address] | | | SERVICES, | [address] [...] 88 | 60 - 99 mg/dL | [facility] - | | | GLUCOSE, | | [...] SMITH | [address] | [place], [place] | | | WANG POINT OF CARE | [address] | [address] | | | TESTS | | | [...]
--- OUTSIDE RECORDS SUMMARY | ~2019-07-18 | XMS | Encounter Summary ---
Demographics + + + | Address | [address] | | | [place] [address] | + + + | Home Phone [...] Team Providers + +------+ + | Care Supervisory It Specialist Name | Role | Phone | [...] | | | | | ECHOCARDIOGR | [place], [place] | Mailcode: | | | | | AM, ADULT | [address] | [id number] | | | | | | Phone: | Harlan Prater | | | | | | [phone] | [facility] | | | | | | Fax: | [place], [place] | | | | | | [phone] | [address] | | | | | | | Phone: | | | | | | | [phone] | +--------+--------+ + + + + Diagnostic [...] Rd | | | | | | [place], [place] | Mailcode: | | | | | | [address] | [address] [facility] | | | | | | Phone: | Hospital | | | | | | [phone] | [place], [place] | | | | | | Fax: | [address] | | | | | | [phone] | Phone: | | | | | | | [phone] | | | | | | | Fax: | | | | | | | [phone] | +--------+--------+ + + + + Diagnostic [...] | | | | | COMPLETE | [place], [place] | Rd Mailcode: | | | | | BILATERAL | [address] | [address] | | | | | | Phone: | Physician's | | | | | | [phone] | Pavilion | | | | | | Fax: | [place], [place] | | | | | | [phone] | [address] | | | | | | | Phone: | | | | | | | [phone] | | | | | | | Fax: | | | | | | | [phone] | +--------+--------+ + + + + Reason [...] | | | | | | | [facility] [place] | | | | | | | [address] | | | | | | | Phone: | | | | | | | [phone] | | | | | | | Fax: | | | | | | | [phone] | +--------+--------+ + + + + Encounter Details +--------+ + + + + | Date | Type | Department | Care Team | Description | +--------+ + + + + | 11/16/ | Hospital | [facility] [address] | Emi Arroyo MD | | | 2009 - | Encounter | [address] | [address] | | | | | [id number] [facility] | [place], | | | 11/21/ | | HOSP[place], | [place] [address] | | | 2009 | | [place] [address] | [phone] | | | | | [phone] | | | | | | | Tru Barroso MD | | | | | | [address] | | | | | | [place], | | | | | | [place] [address] | | | | | | [phone] | | | | | | | [...] in this encounter Discharge Summaries Christa Herrera, PRE K SPECIAL EDUCATION TEACHER - 11/21/2009 11:56 AM PDTFormatting of this [...] carotid arteries. She was transfer red to [facility] and admitted on 11-16-09. [facility] Neuro-Stroke consult was obtained and CTA of [...] drainage, o r fever > 100.5. Call [facility] Vascular Surgery clinic if there are signs of infection Diet Regular Activity Restrictions: Activity level at discharge Up unrestricted HOB Position 30 Degrees Driving Restrictions No Driving until off pain meds Bathing Restrictions Shower is okay, keep wound open to air Destination: Destination: Home Condition on Discharge Good Discharge Follow Up Provider and Clinic: [facility] Vascular Surgery Clinic [address], [phone] Appointment: Call to make an appointment in 2 weeks Other Discharge Orders and Instructions Recommend continued smoking cessation, use Nicotine patches and followup with PCP for our [facility] er assistance to stay smoke free. CECELIA MCNEAL [place] [address] [address] [id number] [facility] [address] Discharging Physician: CECELIA MCNEAL Attending Physician: Tru [...] lifestyle changes may be recommended. Hospitalization or half-way car e is decided upon an individual [...] are getting worse. ExitCare Patient Information 2006 [employer]. INPATIENT NURSE ORDER FOR DISCHARGE AND INTERDISCIPLINARY [...] the resident s note. GUSTAVO REECE MD [facility] 12KI [address] [id number] [facility] [address] Richard Ott MD - 2009 9:17 AM [...] chuck y. No escape rhythm. No prolonged SC or wide QRS. Likely vagal in nature. [...] with plan. TRU BAXTER MD VASCULAR SURGERY, [address] Mail Code [address] [place] [address] Email: [email or web address] Kurt Mccoy - 5:33 PM PDTTransthoracic echocardiogram [...] marked - cont asa, statin, and bblocker Kramen Soriano MD - 11/17/2009 10 :28 AM [...] exam and care plan as per the customs house broker and rex preez examined the patient myself. We have been [...] the angiogram. She has not had an CT or AF, although did have a history [...] candidate since h er symptoms have resolved. [facility] DEPARTMENT: MARIA LUISA STROKE [facility] - [phone] Place of Service: - CSN: [id number] Suggested Modifer: GC Resident Present Suggested Level of Service: 16937 - Consults, Comp/mod complex 80 min Suggested Diagnosis: 434.1 - Cerebral embolism and 433.1_0_ - Stenosis, Carotid Artery documented in this enco unter Plan of Treatment +--------+ + + + + | Date | Type | Specialty | Care Team | Description | +--------+ + + + + | 06/17/ | Hospital | Adult Acute Care | Jarrod Barrtet MD | | | 2019 | Encounter | | [address] | | | | | | [place], | | | | | | [place] [address] | | | | | | [phone] | | | | | | | [...] [facility] | [address] | [place], [place] | | | THERAPY | [address] | [address] | | + + + + + [...] DEPARTMENT | [address] | [place] [address] | | | PATHOLOGY | [address] [...] + + + + | [facility] | [address] | [place] [address] | | | PATHOLOGY | [address] [...] | + + + + + | [facility] DEPARTMENT OF | [address] | [place] [address] | | | PATHOLOGY | [address] [...] DEPARTMENT OF | [address] | [place] [address] | | | PATHOLOGY | [address] [...] | + + + + + | [facility] DEPARTMENT OF | [address] | [place] [address] | | | PATHOLOGY | [address] [...] | | | | | JULIAN OWENS ([id number]) | | | | | | on [...] view image for the detailed interpretation from Fan[employer] results. | CARDIOLOGY | | | | + + + + + + + + | Performing | Address | City/State/Zipcode | Phone Number | | Organization | | | | + + + + + | [facility] | [address] | [place], [place] | | | CARDIOLOGY | [facility] | [address] | | + + + + + [...] + + + + | [facility] | [address] | [place] [address] | | | PATHOLOGY | [address] [...] DEPARTMENT OF | [address] | [place] [address] | | | PATHOLOGY | [address] [...] + + | [facility] DEPARTMENT OF | [address] | [place] [address] | | | PATHOLOGY | [address] [...] OF | [address] | [place] [address] | | | PATHOLOGY | [address] [...] + + + + | [facility] | [address] | [place] [address] | | | PATHOLOGY | [address] [...] + + + + | [facility] | [address] | [place] [address] | | | PATHOLOGY | [address] [...] + + + + | [facility] | [address] | [place] [address] | | | PATHOLOGY | [address] | | | + + + + + OPERATION RECORD (11/20/2009 12:00 AM PDT) + + + | Narrative | Performed At | + + + | [id number] | | | [id number] | | | [id number] JENNY MONAE [id number] | | | Date: 11/20/2009 Attending | | | Surgeon: Tru Barroso M.D. | | | Inspector And Adjuster Golf Club Head(s): Shanta Rubi M.D. | | | Preoperative [...] procedure well. TRU BARROSO, | | | furnace brazer [facility] / [id number] / [id number] / [id number] / | | | | | + + + + + | Procedure Note | + + | Tru Barroso MD - 11/20/2009 12:00 AM PDT [id number] | | [id number] JENNY MONAE | | [id number] Date: 11/20/2009 Attending Surgeon: | | Tru Barroso M.D. Inspector And Adjuster Golf Club Head(s): Shanta Rubi M.D. | | Preoperative Diagnosis(es):Symptomatic [...] of presentation was found to have an yrybkwbibmdrw08% stenosis of the | | right internal [...] tolerate | | theprocedure well. TRU BARROSO, [facility] / [id number] / [id number] / | | [id number] / T: 11/21/2009 | |external carotid and [...] | | | |TRU BARROSO MD | |furnace brazer | | | | | |[facility] / | |[id number] / [id number] / [id number] / | | | | | | [...] + + + + | [facility] | [address] | [place] [address] | | | PATHOLOGY | [address] [...] | + + + + + | [facility] DEPARTMENT OF | [address] | [place] [address] | | | PATHOLOGY | [address] [...] + + + + | [facility] | [address] | [place] [address] | | | PATHOLOGY | [address] | | | + + + + + MAGNESIUM, PLASMA (11/19/2009 6:08 AM PDT) + +-------+ + + + | Component | Value | Ref Range | Performed | Pathologist | | | | | At | Signature | + +-------+ + + + | MAGNESIUM,P | 2.4 | 1.8 - 2.5 mg/dL | [facility] | | | LASMA | | | [...] | + + + + + | [facility] DEPARTMENT OF | [address] | [place] [address] | | | PATHOLOGY | [address] [...] DEPARTMENT OF | [address] | [place] [address] | | | PATHOLOGY | [address] [...] DEPARTMENT OF | [address] | [place] [address] | | | PATHOLOGY | [address] [...] + + + + | [facility] | [address] | [place] [address] | | | PATHOLOGY | [address] [...] [facility] DEPARTMENT | [address] | [place] [address] | | | PATHOLOGY | [address] [...] | + + + + + | [facility] DEPARTMENT | [address] | [place] [address] | | | PATHOLOGY | [address] [...] | + + + + + | [facility] DEPARTMENT OF | [address] | [place] [address] | | | PATHOLOGY | [address] [...] DEPARTMENT OF | [address] | [place] [address] | | | PATHOLOGY | [address] [...] | + + + + + | [facility] DEPARTMENT OF | [address] | [place] [address] | | | PATHOLOGY | [address] [...] DEPARTMENT OF | [address] | [place] [address] | | | PATHOLOGY | [address] [...] | + + + + + | [facility] DEPARTMENT OF | [address] | [place] [address] | | | PATHOLOGY | [address] [...] | + + + + + | [facility] DEPARTMENT OF | [address] [facility] | [place] [address] | | | PATHOLOGY | [address] [...] + + + + | [facility] | [address] | [place] [address] | | | PATHOLOGY | [address] [...] + + + + | [facility] | [address] | [place] [address] | | | PATHOLOGY | [address] [...] + + + + | [facility] | [address] | [place] [address] | | | PATHOLOGY | [address] [...] RESPIRATORY | [address] | [place] | | | THERAPY | [address] | [address] | | + + + + + [...] | | + +---------+ + + | [facility] DEPARTMENT OF | | | | | [...] | | + +---------+ + + | [facility] DEPARTMENT OF | | | | | [...] | + + + + + | [facility] DEPARTMENT OF | [address] | [place] [address] | | | PATHOLOGY | [address] [...] | | | | | CAROTID | [id number] Name: | | | | | DUPLEX | DARCY SUN Birthday: | | | | | COMPLETE | 1955 Sex: F | | | | | BILATERAL | Alias: Patient Location: | | | | | | 11KStatus: Inpatient | | | | | | ActiveOrdering | | | | | | Physician: EMI ARROYO, | | | | | | Johnathan WANRER | | | | | | CAROTID DUPLEX COMP MAITE | | | | | | completed on 11/16/2009 | | | | | | 12:40 PMAccession # | | | | | | [id number] | | | | | | RESULT:CEREBROVASCULAR [...] + + + + | [facility] | [address] | [place] [address] | | | PATHOLOGY | [address] [...] | + + + + + | [facility] DEPARTMENT | [address] | [place] [address] | | | PATHOLOGY | [address] [...] + + + + | [facility] | [address] | [place] [address] | | | PATHOLOGY | [address] | | | + + + + + MAGNESIUM, PLASMA (11/16/2009 11:05 AM PDT) + +-------+ + + + | Component | Value | Ref Range | Performed | Pathologist | | | | | At | Signature | + +-------+ + + + | MAGNESIUM,P | 2.3 | 1.8 - 2.5 mg/dL | [facility] | | | LASMA | | | [...] | + + + + + | [facility] DEPARTMENT OF | [address] | [place] [address] | | | PATHOLOGY | [address] [...] | + + + + + | [facility] OF | [address] | [place] [address] | | | PATHOLOGY | [address] [...] + + + + | [facility] | [address] | [place] [address] | | | PATHOLOGY | [address] [...] | | | | | PORT[place] | [id number] Name: | | | | | ABDOMINAL | DARCY SUN Birthday: | | | | | DUPLEX LTD | 1955 Sex: F | | | | | ARTERY VEIN | Alias: Patient Location: | | | | | | 11KStatus: Inpatient | | | | | | ActiveOrdering | | | | | | Physician: EIM ARROYO, | | | | | | M.D. VDABLP VL PORT | | | | | | ABD'L DUP LTD ART/MERVIN | | | | | | completed on 11/16/2009 | | | | | | 7:56 AMAccession # | | | | | | [id number] RESULT:GRAFT | | | | | | [...] Cathie | | | | | | [place] | | | | | | | | | | | |STATUS FINAL / Dr. TRU BAXTER | | | | | |STATUS PRELIMINARY - UNSIGNED / [place] | | | | | | | [...] [facility] | [address] | [place], [place] | | | THERAPY | [address] | [address] | | + + + + + [...] DEPARTMENT OF | [address] | [place] [address] | | | PATHOLOGY | [address] [...] + + + + | [facility] | [address] | [place] [address] | | | PATHOLOGY | [address] [...] [facility] | [address] | [place], [place] | | | THERAPY | [address] | [address] | | + + + + + [...] view image for the detailed interpretation from Fanbase results. | CARDIOLOGY | | | | + + + + + + + + | Performing | Address | City/State/Zipcode | Phone Number | | Organization | | | | + + + + + | [facility] DEPT OF | [address] | [place], [place] | | | CARDIOLOGY | [address] | [address] | | + + + + + [...]
--- OUTSIDE RECORDS SUMMARY | ~2019-07-18 | XMS | Encounter Summary ---
Demographics + + + | Address | [address] | | | [place] [address] | + + + | Home Phone [...] Providers + +------+ + | Care Auto Body Technician Name | Role | Phone | [...] [address] | | | | | [place], [place] | Rd [place], [place] | | | | | [address] | [address] | | | | | | [phone] | | +--------+ + + + + [...] | | | | | [place], | | | | | | [place] [address] | | | | | | [phone] | | | | | | | | +--------+ + + + + | 06/18/ | Procedure | Surgery | | | | 2020 | Pass | | | | +--------+ + + + + documented as of this encounter Visit Diagnoses Not on filedocumented in this encounter"
--- OUTSIDE RECORDS SUMMARY | ~2019-07-18 | XMS | Encounter Summary ---
Demographics + + + | Address | [address] | | | [place] [address] | + + + | Home Phone [...] Team Providers + +------+ + | Care Housing Officer Name | Role | Phone | [...] + + + | Pending | | Orthopedics | Diagnoses | Orina, | Ens[place], | | Review | | | Lumbosacral | MD Jarrod | MD Indio | | | | | | [address] | [address] | | | | | radiculopath | [facility] | | | | | y | Rd | Rd [place], | | | | | Procedures | [place], [place] | [place] | | | | | EMG/NERVE | [address] | [address] | | | | | CONDUCTION | Phone: | Phone: | | | | | STUDIES - | [phone] | [phone] | | | | | ORTHO | Fax: | Fax: | | | | | | [phone] | [phone] | + +--------+ + + + + Encounter Details +--------+ + + + + | Date | Type | Department | Care Team | Description | +--------+ + + + + | 05/24/ | Laboratory Inspector | [facility] at | Jarrod Barrett MD | Lumbosacral | | 2017 | | [address] | [address] | radiculopathy | | | | [place] Mailcode: | [place], | (Primary Dx) | | | | [facility] | [place] [address] | | | | | and [place], | [phone] | | | | | [address] | | | | | | [place], [place] | | | | | | [address] | | | | | | [phone] | | | +--------+ + + + [...] | | | | | [place], | | | | | | [place] [address] | | | | | | [phone] | | | | | | | [...]
--- OUTSIDE RECORDS SUMMARY | ~2019-07-18 | XMS | Encounter Summary ---
Demographics + + + | Address | [address] | | | [place] [address] | + + + | Home Phone | | + + + | Preferred Language | Unknown | + + + | Marital Status | | + + + | [employer] Affiliation [...] Team Providers + +------+ + | Care V/Stol Landing Signal Officer Name | Role | Phone | + +------+ + | Litzy Castillo MD | PCP | | + +------+ + Reason for Visit +--------+ + | Reason | Comments | +--------+ + | Other | Telemedicine [facility] | +--------+ + Encounter Details +--------+ + + + + | Date | Type | Department | Care Team | Description | +--------+ + + + + | 07/19/ | Documentati | [place] [facility] | Deloris Seo | Other (Telemedicine | | 2018 | on | [facility] | TERRY Pacheco | [facility]) | | | | [facility] [address] | | | | | | [address] [facility], | | | | | | [place] [address] | | | | | | [phone] | | | +--------+ + + + [...] for Telemedicine appointment with Dr. Minor, Neurologist, [facility]. Pt. is seeking pre-approval for back surgery at [facility] to relieve pain. Was advised to have neuro consult due to stro ke history. Dr. Minor is referring pt. to Dr. Jerry Shelton, opthalmologist in [place], for eval. of unilateral vision loss prior [...] [address]ARC[address] | | | | | | [place] [address] | | | | | | [phone] | | | | | | | | +--------+---------+ + + + documented as of this encounter Visit Diagnoses Not on filedocumented in this encounter"
--- OUTSIDE RECORDS SUMMARY | ~2019-07-18 | XMS | Encounter Summary ---
Demographics + + + | Address | [address] | | | [place] [address] | + + + | Home Phone | | + + + | Preferred Language | Unknown | + + + | Marital Status | Single | + + + | Evangelical Affiliation | NON | + + + [...] Team Providers + +------+ + | Care Casino Slot Supervisor Name | Role | Phone | + +------+ + | Heide Bhatti | PCP | | + +------+ + Encounter Details +--------+ + + + + | Date | Type | Department | Care Team | Description | +--------+ + + + + | 05/17/ | Hospital | Radiology/Imaging | Jarrod Barrett MD | | | 2018 | Encounter | Lab at [facility] [address] | [address] | | | | | [place] Mailcode: | [place], | | | | | [facility] | [place] [address] | | | | | and [place], | [phone] | | | | | [facility] | | | | | | Floor [place], [place] | | | | | | [address] | | | | | | [phone] | | | +--------+ + + + [...] | | | | | [place], | | | | | | [place] [address] | | | | | | [phone] | | | | | | | [...]
--- OUTSIDE RECORDS SUMMARY | ~2019-07-18 | XMS | Encounter Summary ---
Demographics + + + | Address | [address] | | | [place] [address] | + + + | Home Phone [...] Team Providers + +------+ + | Care Pool Table Mechanic Name | Role | Phone | + +------+ + | Litzy Castillo MD | PCP | | + +------+ + Encounter Details +--------+ + + + + | Date | Type | Department | Care Team | Description | +--------+ + + + + | 08/27/ | Hospital | [facility] | Conversion | Diagnosis unknown | | 2019 | Encounter | CONVERSION [address] | Transaction, | | | | | [address] | Provider Unknown | | | | | [place], [place] | [phone] | | | | | [address] | | | | | | [phone] | | | +--------+ + + + [...] [address] | | | | | | [place] [address] | | | | | | [phone] | | | | | | | [...]
--- OUTSIDE RECORDS SUMMARY | ~2019-07-18 | XMS | Encounter Summary ---
Demographics + + + | Address | [address] | | | [place] [address] | + + + | Home Phone [...] Team Providers + +------+ + | Care Shear Scrapman Name | Role | Phone | + [...] L4-5 LAMINECTOMY; | | 2018 | | [facility] | [address] | | | | | Admitting Desk | Silvia Art [facility] | | | | | [facility] the | [place] [address] | | | | | floor [address] | [phone] | | | | | [address] | | | | | | [place], [place] | | | | | | [address] | | | +--------+---------+ + + + [...] documented as of this encounter Progress Notes iLlia De La Torre MD - 12/14/2018 3:29 [...] grossly intact to commands Delt Bi Tri Unit Leader HF KE KF DF PF EHL Left [...] MD Neurosurgery Resident 3:30 PM, 12/14/2018 Pager #[phone] documented in this en counter Plan of Treatment +--------+ + + + + | Date | Type | Specialty | Care Team | Description | +--------+ + + + + | 06/17/ | Hospital | Adult Acute Care | Jarrod Barrett MD | | | 2019 | Encounter | | [address] | | | | | | [address] [place], | | | | | | [place] [address] | | | | | | [phone] | | | | | | | [...] [facility] | [address] | [place], [place] | | | ROSIE PIÑA OF CARE | [address] | [address] | | | TESTS | | | | + + + + + PROCEDURE NOTE (12/14/2018 2:52 PM PDT) + + + | Narrative | Performed At | + + + | Jarrod Barrett MD 12/17/2018 10:29 AM Date of Service: | | | 12/14/2018 Attending Surgeon: Jarrod | | | MD Nena Livestock Counter(s): | | | Lilia De La Torre [...] | | 63-year-old female who presented to [facility] with low back | [...] predicted by the preoperative MRI. Using a [place] and curette, | | | this was [...] | | | | | | y, [facility] & | | | | | | [facility] | | | | | | electronic [...] number | | | | | | [id number]. Spine, Right | | | | | [...] | | | | | determined by [facility] | | | | | | [...] [place] DEPARTMENT | [address] | [place] [address] | | | PATHOLOGY | [address] [...] [facility] | [address] | [place] [address] | | | SERVICES, CORE | [address] [...] [facility] | [address] | [place] [address] | | | SERVICES, CORE | [address] [...] | + + + + + | [facility] | [address] | [place] [address] | | | SERVICES, | [address] [...] | + + + + + | [facility] | [address] | [place] [address] | | | SERVICES, | [address] [...] 88 | 60 - 99 mg/dL | [facility] - | | | GLUCOSE, | [...] SMITH | [address] | [place], [place] | | | WANG POINT OF CARE | [address] | [address] | | | TESTS | | | [...]
--- OUTSIDE RECORDS SUMMARY | ~2019-07-18 | XMS | Encounter Summary ---
Demographics + + + | Address | [address] | | | [place] [address] | + + + | Home Phone [...] Team Providers + +------+ + | Care Manager Strategy & Account Name | Role | Phone | + +------+ + | Heide Bhatti | PCP | | + +------+ + Encounter Details +--------+ + + + + | Date | Type | Department | Care Team | Description | +--------+ + + + + | 05/17/ | Hospital | Radiology/Imaging | Jarrod Barrett MD | | | 2018 | Encounter | Lab at [facility] [address] | [address] | | | | | [place] Mailcode: | [place], | | | | | [facility] | [place] [address] | | | | | and [place], | [phone] | | | | | [facility] | | | | | | Floor [place], [place] | | | | | | [address] | | | | | | [phone] | | | +--------+ + + + [...] | | | | | [address] [place], | | | | | | [place] [address] | | | | | | [phone] | | | | | | | [...]
--- OUTSIDE RECORDS SUMMARY | ~2019-07-18 | XMS | Encounter Summary ---
Demographics + + + | Address | [address] | | | [place] [address] | + + + | Home Phone [...] Team Providers + +------+ + | Care Rubber Stamp Maker Name | Role | Phone | [...] | | | [address] | [facility], | | | | | [place], [place] | [place] [address] | | | | | [address] | [phone] | | | | | [phone] | | | +--------+ + + + [...] [address] | | | | | | [place] [address] | | | | | | [phone] | | | | | | | | +--------+---------+ + + + documented as of this encounter Visit Diagnoses Not on filedocumented in this encounter"
--- OUTSIDE RECORDS SUMMARY | ~2019-07-18 | XMS | Encounter Summary ---
Demographics + + + | Address | [address] | | | [place] [address] | + + + | Home Phone | | + + + | Preferred Language | Unknown | + + + | Marital Status | Single | + + + | Religion Affiliation | NON | + + + | Race | White | + + + | Ethnic Group | Not or | + + + Author + + + | Author | [facility] | + + + | Organization | [facility] | + + + | Address [...] Providers + +------+ + | Care Senior Manufacturing Supervisor Name | Role | Phone | [...] | | | 2019 | Event | [facility] | [address] | | | | | Admitting Desk | [place], | | | | | Located on the | [place] [address] | | | | | floor [address] | [phone] | | | | | [address] | | | | | | [place], [place] | Jass Huynh MD | | | | | [address] | [address] | | | | | | [address] | | | | | | [place], [place] | | | | | | [address] | | | | | | [phone] | | | | | | | [...] Breath Sounds | Yadira Griffith MD | Jsas Huynh MD | | | bilaterally, Continous [...] | | | | | [place], | | | | | | [place] [address] | | | | | | [phone] | | | | | | | [...]
--- OUTSIDE RECORDS SUMMARY | ~2019-07-18 | XMS | Encounter Summary ---
Demographics + + + | Address | [address] | | | [place] [address] | + + + | Home Phone [...] Team Providers + +------+ + | Care Sparmaker Name | Role | Phone | + +------+ + | Litzy Castillo MD | PCP | | + +------+ + Encounter Details +--------+ + + + + | Date | Type | Department | Care Team | Description | +--------+ + + + + | 12/16/ | Pool Nurse | [facility] at | Tara Glass | | | 2019 | | [facility] [address] | SHAYE Osuna [address] | | | | | [place] Mailcode: | [address] | | | | | [facility] | [place], [place] | | | | | [place], | [address] | | | | | [place] [address] | [phone] | | | | | [place], [place] | | | | | | [address] | | | | | | [phone] | | | +--------+ + + + [...] | | | | | [place], | | | | | | [place] [address] | | | | | | [phone] | | | | | | | | +--------+ + + + + | 06/18/ | Procedure | Surgery | | | | 2020 | Pass | | | | +--------+ + + + + documented as of this encounter Visit Diagnoses Not on filedocumented in this encounter"
--- OUTSIDE RECORDS SUMMARY | ~2019-07-18 | XMS ---
Demographics + + + | Address | [address] | | | [address] | | | [place] [address] | + + + | Preferred Language | Unknown | + + + | Marital Status | Unknown | + + + | Synagogue Affiliation | Unknown | + + + | Race | Unknown | + + + | Ethnic Group | Unknown | + + + Author + + + | Author | [facility] | + + + | Organization | [facility] | + + + | Address | [address] | | | [place] [address] | + + + | Phone | | + + + Care Team Providers + + + + | Care Neighborhood Aide Name | Role | Phone | + + + + Unavailable | Unavailable | + + + + PROBLEMS + + + + + + + + | Type | Condition | ICD9-CM | [id number] | Onset | Condition | SNOMED | | | | Code | Code | Dates | Status | Code | + + + + + + + + | Problem | Hyperlipid | 272.4 | | | Active | [id number] | | | emia NOS | | | | | | + + + + + + + + | Problem | Tobacco | 305.1 | | | Active | 990633477 | | | use | | | | | | + + + + + + + + | Problem | Transient | 435.9 | | | Active | 261926295 | | | ischemic | | | | | | | | attack | | | | | | + + + + + + + + | Problem | Hyperlipid | | E78.5 | | Active | 07087476 | | | emia | | | | | | + + + + + + + + | 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 | 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 | | | erotic | | | | | | | | cardiovasc | | | | | | | | ular | | | | | | | | disease | | | | | | + + + + + + + + | Problem | HX | V12.54 | | | Active | 529453646 | | | TIA/STROKE | | | | | | | | W/O RESID | | | | | | + + + + + + + + | Problem | OA | 715.90 | | | Active | 079575900 | | | (osteoarth | | | | | | | | ritis) | | | | | | + + + + + + + + | Problem | Essential | | I10 | | Active | 34296893 | | | (primary) | | | | | | | | hypertensi | | | | | | | | on | | | | | | + + + + + + + + | Problem | Asthma w/ | 493.22 | | | Active | 801868162 | | | COPD w/ | | | | | | | | acute | | | | | | | | exacerbati | | | | | | | | on | | | | | | + + + + + + + + | Problem | Hypertensi | 401.9 | | | Active | 53999157 | | | on | | | | | | + + + + + + + + | Problem | Joint | 719.41 | | | Active | 354110226 | | | pain, | | | | | | | | shoulder | | | | | | + + + + + + + + | Assessment | Encounter | Z23 | | 31 Oct, | Active | [id number] | | | to | | | 2017 | | | | | vaccinate | | | | | | | | patient | | | | | | + + + + + + + + | Problem | POSTSURGIC | V45.89 | | | Active | 50949677 | | | [place] | | | | | | | | NEC | | | | | | + + + + + + + + | Problem | ASTHMA NOS | 493.90 | | | Active | 741557197 | + + + + + + + + | Problem | Low Back | 724.5 | | | Active | 164233324 | | | Pain NOS | | | | | | + + + + + + + + | Problem | Acute | 466.0 | | | Active | 27514967 | | | bronchitis | | | | | | | | NOS | | | | | | + + + + + + + + | Problem | ROTATOR | 727.61 | | | Active | 9907881 | | | CUFF | | | | | | | | RUPTURE | | | | | | + + + + + + + + | Problem | Abnormal | 794.8 | | | Active | 83431419 | | | liver | | | | | | | | function | | | | | | | | study | | | | | | + + + + + + + + ALLERGIES + + + + +--------+ | Substance | Reaction | Event Type | Date | Status | + + + + +--------+ | Tetracycline | Unknown | Drug Allergy | Oct, | Active | | HCl | | | | | + + + + +--------+ | vioxx | Unknown | Non Drug | Oct, | Active | | | | Allergy | | | + + + + +--------+ SOCIAL HISTORY No smoking Hx information available PLAN OF CARE VITAL SIGNS + + + + | Height | 60 in | 2016-11-21 | + + + + | Weight | 144.2 lbs | 2016-11-21 | + + + + | BMI | 28.16 kg/m2 | 2016-11-21 | + + + + | Heart Rate | 77 /min | 2016-11-21 | + + + + | Blood pressure systolic | 169 mm Hg | 2016-11-21 | + + + + | Blood pressure diastolic | 70 mm Hg | 2016-11-21 | + + + + MEDICATIONS + [...] + + + + + +--------+ | Plavix | | TAKE ONE | | | | 30 | Active | | 75 MG | | TABLET | | | | | | | | | BY MOUTH | | | | | | | | | EVERY | | | | | | | | | DAY | | | | | | + + + + + + + +--------+ | Aspirin | | | | | | | Active | | EC 325mg | | | | | | | [...] + + + + + +--------+ | Mobic 15 | by mouth | one | 24h | 07 Oct, | 5 Apr, | 30 days | Active | | mg | daily | | | 2015 | 2017 | | | + + + + [...] | + + + + + | PNEUMOCOCCAL VACC, | November 21, 2016 | | | | 13 MATI IM | | | | + + + + + | ADMN PNEUMCOC VAC | November 21, 2016 | | | | NO FEE SCHED DAY | | | | + + + + + IMMUNIZATIONS + + + + + | Vaccine | Route | Administration Date | Status | + + + + + | Pneumovax 13 | IM Intramuscular | November 21, 2016 | Administered | | Medicare | | | | + + + + +"
--- OUTSIDE RECORDS SUMMARY | ~2019-07-18 | XMS | Encounter Summary ---
Demographics + + + | Address | [address] | | | [place] [address] | + + + | Home Phone [...] Providers + +------+ + | Care Supervisor Pipelines Name | Role | Phone | + +------+ + | Litzy Castillo MD | PCP | | + +------+ + Encounter Details +--------+ + + + + | Date | Type | Department | Care Team | Description | +--------+ + + + + | 04/08/ | Orders Only | [facility] | Allison Suresh DO | Peripheral vascular | | 2019 | | CARDIOLOGY [facility] | [address] | disease (HCC); | | | | [address] | [place], [place] | Cerebral | | | | [address] | [address] | atherosclerosis | | | | [place] | | | | | | [address] | | | | | | [phone] | | | +--------+ + + + [...] MARCANO | | | | | | [place] [address] | | | | | | [phone] | | | | | | | | +--------+---------+ + + + documented as of this encounter Visit Diagnoses + + | Diagnosis | + + | Peripheral vascular disease (HCC) Peripheral vascular disease, unspecified | + + | Cerebral atherosclerosis | + + documented in this encounter"
--- OUTSIDE RECORDS SUMMARY | ~2019-07-18 | XMS | Encounter Summary ---
Demographics + + + | Address | [address] | | | [place] [address] | + + + | Home Phone [...] Team Providers + +------+ + | Care Inseamer Name | Role | Phone | + [...] | | | CENTER [address] | [facility] | | | | | [address] [place], [place] | [place] [address] | | | | | [address] | [phone] | | | | | [phone] | | | +--------+ + + + [...] MARCANO | | | | | | [place] [address] | | | | | | [phone] | | | | | | | | +--------+---------+ + + + documented as of this encounter Visit Diagnoses Not on filedocumented in this encounter"
--- OUTSIDE RECORDS SUMMARY | ~2019-07-18 | XMS | Encounter Summary ---
Demographics + + + | Address | [address] | | | [place] [address] | + + + | Home Phone [...] Team Providers + +------+ + | Care Beading Machine Operator Name | Role | Phone [...] | | | [address] | [facility], | | | | | [place], [place] | [place] [address] | | | | | [address] | [phone] | | | | | [phone] | | | +--------+ + + + [...] MARCANO | | | | | | [place] [address] | | | | | | [phone] | | | | | | | | +--------+---------+ + + + documented as of this encounter Visit Diagnoses Not on filedocumented in this encounter"
--- OUTSIDE RECORDS SUMMARY | ~2019-07-18 | XMS | Encounter Summary ---
Demographics + + + | Address | [address] | | | [place] [address] | + + + | Home Phone [...] Team Providers + +------+ + | Care Industrial Renderer Name | Role | Phone | + [...] | | | | | lumbar | [address] | [address] | | | | | region with | Phone: | Phone: | | | | | neurogenic | [phone] | [phone] | | | | | claudication | Fax: | Fax: | | | | | | [phone] | [phone] | | | | | Radiculopath | | | | | | | y, lumbar | | | | | | | region | | | | | | | Procedures | | | | | | | REQUEST TO | | | | | | | SURGERY | | | | | | | MOTOR EQUIPMENT SERGEANT | | | | | | | AL EXCIS | | | | | | | INTRASP | | | | | | | LESN,XDURAL, | | | | | | | LUMBAR AL | | | | | | | EXCIS | | | | | | | INTRASP | | | | | | | LESN,INTRADU | | | | | | | R,LUMB AL | | | | | | | BX/EXCIS | | | | | | | SPINAL | | | | | | | TUMOR,XDURAL | | | | | | | ,LUMB AL | | | | | | | BX/EXCIS | | | | | | | SPIN | | | | | | | BALBIR,INDUR,XM | | | | | | | ED,LUMB AL | | | | | | | [...] | | | 2019 | on | [facility] [address] | [address] | | | | | Cord[place] Mailcode: | Ana Art [facility] | | | | | [facility] | [place] [address] | | | | | and [place], | [phone] | | | | | [place] [address] | | | | | | [place], [place] | | | | | | [address] | | | | | | [phone] | | | +--------+ + + + [...] | | | | | Ana [place], | | | | | | [place] [address] | | | | | | [phone] | | | | | | | [...]
--- OUTSIDE RECORDS SUMMARY | ~2019-07-18 | XMS | Encounter Summary ---
Demographics + + + | Address | [address] | | | [place] [address] | + + + | Home Phone | | + + + | Preferred Language | Unknown | + + + | Marital Status | | + + + | Orthodox Affiliation | Unknown | + + + | Race | Unknown | + + + | Ethnic Group | Unknown | + + + Author + + + | Author | [facility] | | | and [place] | + + + | Organization | [facility] | | [...] Providers + +------+ + | Care Financial Rep Name | Role | Phone | + +------+ + | Litzy Castillo MD | PCP | | + +------+ + Reason for Visit +--------+ + | Reason | Comments | +--------+ + | Other | Telemedicine [facility] | +--------+ + Encounter Details +--------+ + + + + | Date | Type | Department | Care Team | Description | +--------+ + + + + | 07/19/ | Documentati | [facility] | Deloris Seo | Other (Telemedicine | | 2018 | on | [facility] | TERRY Pacheco | [facility]) | | | | [facility] [address] | | | | | | [address] [facility], | | | | | | [place] [address] | | | | | | [phone] | | | +--------+ + + + [...] for Telemedicine appointment with Dr. Minor, Neurologist, [facility]. Pt. is seeking pre-approval for back surgery at [facility] to relieve pain. Was advised to have neuro consult due to stro ke history. Dr. Minor is referring pt. to Dr. Jerry Shelton, opthalmologist in [place], for eval. of unilateral vision loss prior [...] MARCANO | | | | | | [place] [address] | | | | | | [phone] | | | | | | | | +--------+---------+ + + + documented as of this encounter Visit Diagnoses Not on filedocumented in this encounter"
--- OUTSIDE RECORDS SUMMARY | ~2019-07-18 | XMS | Encounter Summary ---
Demographics + + + | Address | [address] | | | [place] [address] | + + + | Home Phone | | + + + | Preferred Language | Unknown | + + + | Marital Status | | + + + | Nondenominational Affiliation | Unknown | + + + | Race | Unknown | + + + | Ethnic Group | Unknown | + + + Author + + + | Author | [facility] | | | and [place] | + + + | Organization | [facility] | | | [...] Team Providers + +------+ + | Care Finisher Denture Name | Role | Phone | + +------+ + PCP | Unavailable | + +------+ + Encounter Details +--------+ + + + + | Date | Type | Department | Care Team | Description | +--------+ + + + + | 03/20/ | Hospital | [facility] | Christoph Lipscomb | | | 2011 | Encounter | [facility] | MD [address] | | | | | CENTER [address] | [address] | | | | | [address] [place] | [place] [address] | | | | | [address] | [phone] | | | | | [phone] | | | +--------+ + + + [...] | | | | | [place] [address] | | | | | | [phone] | | | | | | | | +--------+---------+ + + + documented as of this encounter Visit Diagnoses Not on filedocumented in this encounter"
--- OUTSIDE RECORDS SUMMARY | ~2019-07-18 | XMS | Encounter Summary ---
Demographics + + + | Address | [address] | | | [place] [address] | + + + | Home Phone | | + + + | Preferred Language | Unknown | + + + | Marital Status | | + + + | Jew Affiliation | Unknown | + + + | Race | Unknown | + + + | Ethnic Group | Unknown | + + + Author + + + | Author | [facility] | | | and [place] | + + + | Organization | [facility] | [...] Team Providers + +------+ + | Care Networking Specialist Name | Role | Phone | + +------+ + | Litzy Castillo MD | PCP | | + +------+ + Encounter Details +--------+ + + + + | Date | Type | Department | Care Team | Description | +--------+ + + + + | 08/28/ | Hospital | [facility] | Conversion | Pain | | 2019 | Encounter | CONVERSION [address] | Transaction, | | | | | [address] | Provider Unknown | | | | | [place], [place] | [phone] | | | | | [address] | | | | | | [phone] | | | +--------+ + + + [...] MARCANO | | | | | | [place] [address] | | | | | | [phone] | | | | | | | [...]
--- OUTSIDE RECORDS SUMMARY | ~2019-07-18 | XMS | Encounter Summary ---
Demographics + + + | Address | [address] | | | [place] [address] | + + + | Home Phone | | + + + | Preferred Language | Unknown | + + + | Marital Status | | + + + | Gnosticism Affiliation | Unknown | + + + | Race | Unknown | + + + | Ethnic Group | Unknown | + + + Author + + + | Author | [facility] | | | and [place] | + + + | Organization | [facility] | | | and [...] Team Providers + +------+ + | Care Management Sme Name | Role | Phone | + [...] | | | [place], [place] | [address] | | | | | [address] | [phone] | | | | | [phone] | | | +--------+ + + + [...] | | | | | [place] [address] | | | | | | [phone] | | | | | | | | +--------+---------+ + + + documented as of this encounter Visit Diagnoses Not on filedocumented in this encounter"
--- OUTSIDE RECORDS SUMMARY | ~2019-07-18 | XMS | Encounter Summary ---
Demographics + + + | Address | [address] | | | [place] [address] | + + + | Home Phone [...] Team Providers + +------+ + | Care Lining Repairer Name | Role | Phone | + +------+ + | Heide Bhatti | PCP | | + +------+ + Encounter Details +--------+ + + + + | Date | Type | Department | Care Team | Description | +--------+ + + + + | 10/01/ | Telephone | [place] [facility] | Iván, | | | 2011 | | [facility] at [place] | MD [address]ich[address] | | | | | [facility] | | | | | | [address] | | | | | | [place] Art Mailcode: | | | | | | [address] [place] | | | | | | [facility] | | | | | | floor [place], [place] | | | | | | [address] | | | | | | [phone] | | | +--------+ + + + [...] | | | | | Ana Art [facility] | | | | | | [place] [address] | | | | | | [phone] | | | | | | | | +--------+ + + + + | 06/18/ | Procedure | Surgery | | | | 2019 | Pass | | | | +--------+ + + + + documented as of this encounter Visit Diagnoses Not on filedocumented in this encounter"
--- OUTSIDE RECORDS SUMMARY | ~2019-07-18 | XMS | Encounter Summary ---
Demographics + + + | Address | [address] | | | [place] [address] | + + + | Home Phone [...] Team Providers + +------+ + | Care Back Shoe Cutter Name | Role | Phone | [...] | | | | | radiculopath | [facility] | | | | | y | Rd | Rd [place], | | | | | Procedures | [place], [place] | [place] | | | | | EMG/NERVE | [address] | [address] | | | | | CONDUCTION | Phone: | Phone: | | | | | STUDIES - | [phone] | [phone] | | | | | [place]TH[place] | Fax: | Fax: | | | | | | [phone] | [phone] | + +--------+ + + + + Encounter Details +--------+ + + + + | Date | Type | Department | Care Team | Description | +--------+ + + + + | 05/24/ | Recreation Facility Attendant | [facility] at | Jarrod Barrett MD | Lumbosacral | | 2017 | | [address] | [address] | radiculopathy | | | | [place] Mailcode: | [place], | (Primary Dx) | | | | [facility] | [place] [address] | | | | | and [place], | [phone] | | | | | [address] | | | | | | [place], [place] | | | | | | [address] | | | | | | [phone] | | | +--------+ + + + [...] | | | | | Ana [place], | | | | | | [place] [address] | | | | | | [phone] | | | | | | | [...]
--- OUTSIDE RECORDS SUMMARY | ~2019-07-18 | XMS | Encounter Summary ---
Demographics + + + | Address | [address] | | | [place] [address] | + + + | Home Phone [...] Team Providers + +------+ + | Care Associate Editor Name | Role | Phone | + +------+ + | Heide Bhatti | PCP | | + +------+ + Encounter Details +--------+ + + + + | Date | Type | Department | Care Team | Description | +--------+ + + + + | 05/17/ | Hospital | Radiology/Imaging | Jarrod Barrett MD | | | 2018 | Encounter | Lab at [facility] [address] | [address] | | | | | [place] Mailcode: | [place], | | | | | [facility] | [place] [address] | | | | | and [place], | [phone] | | | | | [facility] | | | | | | Floor [place], [place] | | | | | | [address] | | | | | | [phone] | | | +--------+ + + + [...] | | | | | [place], | | | | | | [place] [address] | | | | | | [phone] | | | | | | | [...]
--- OUTSIDE RECORDS SUMMARY | ~2019-07-18 | XMS | Encounter Summary ---
Demographics + + + | Address | [address] | | | [place] [address] | + + + | Home Phone | | + + + | Preferred Language | Unknown | + + + | Marital Status | Single | + + + | Confucianist Affiliation | NON | + + + [...] Providers + +------+ + | Care General Service Technician Name | Role | Phone [...] Pharmacy | | | | | | [address] | | | | | | [place], | | | | | | [place] [address] | | | | | | [phone] | | | +--------+ + + + [...] | | | | | Ana Art [place], | | | | | | [place] [address] | | | | | | [phone] | | | | | | | | +--------+ + + + + | 06/18/ | Procedure | Surgery | | | | 2020 | Pass | | | | +--------+ + + + + documented as of this encounter Visit Diagnoses Not on filedocumented in this encounter"
--- OUTSIDE RECORDS SUMMARY | ~2019-07-18 | XMS | Encounter Summary ---
Demographics + + + | Address | [address] | | | [place] [address] | + + + | Home Phone [...] Team Providers + +------+ + | Care Maintenance Coordinator Name | Role | Phone | [...] Double vision | | 2018 | | [facility] [address] | [address] | | | | | [place] Mailcode: | Ana Art [facility] | | | | | [facility] | [place] [address] | | | | | and [place], | [phone] | | | | | [facility] [address] | | | | | | [place], [place] | | | | | | [address] | | | | | | [phone] | | | +--------+ + + + [...] | | | | | | [place] [address] | | | | | | [phone] | | | | | | | | +--------+ + + + + | 06/18/ | Procedure | Surgery | | | | 2020 | Pass | | | | +--------+ + + + + documented as of this encounter Visit Diagnoses Not on filedocumented in this encounter"
--- OUTSIDE RECORDS SUMMARY | ~2019-07-18 | XMS | Encounter Summary ---
Demographics + + + | Address | [address] | | | [place] [address] | + + + | Home Phone | | + + + | Preferred Language | Unknown | + + + | Marital Status | Single | + + + | Hoahaoism Affiliation | NON | + + + [...] Team Providers + +------+ + | Care Band And Cuff Cutter Name | Role | Phone | + +------+ + | Litzy Castillo MD | PCP | | + +------+ + Encounter Details +--------+ + + + + | Date | Type | Department | Care Team | Description | +--------+ + + + + | 12/14/ | Procedure | 6A Intra Op [facility] | | | | 2019 | Pass | [facility] | | | | | | Admitting Desk | | | | | | Located on the 9th | | | | | | floor [address] [facility] | | | | | | [place] | | | | | | [place], [place] | | | | | | [address] | | | +--------+ + + + [...] | | | | | Ana Art [place], | | | | | | [place] [address] | | | | | | [phone] | | | | | | | | +--------+ + + + + | 06/18/ | Procedure | Surgery | | | | 2020 | Pass | | | | +--------+ + + + + documented as of this encounter Visit Diagnoses Not on filedocumented in this encounter"
--- OUTSIDE RECORDS SUMMARY | ~2019-07-18 | XMS | Encounter Summary ---
Demographics + + + | Address | [address] | | | [place] [address] | + + + | Home Phone [...] Team Providers + +------+ + | Care Anaesthetic Technician Name | Role | Phone | + +------+ + | Heide hBatti | PCP | | + +------+ + Reason for Visit +--------+ + | Reason | Comments | +--------+ + | Other | | +--------+ + Encounter Details +--------+ + + + + | Date | Type | Department | Care Team | Description | +--------+ + + + + | 09/22/ | Telephone | [place] [facility] | Iván, | | | 2011 | | [facility] [place] | MD Marichuy | | | | | [facility] | | | | | | [address] | | | | | | [place] Art Mailcode: | | | | | | [address] [place] | | | | | | [facility] | | | | | | floor [place], [place] | | | | | | [address] | | | | | | [phone] | | | +--------+ + + + [...] | | | | | Ana Art [place], | | | | | | [place] [address] | | | | | | [phone] | | | | | | | | +--------+ + + + + | 06/18/ | Procedure | Surgery | | | | 2020 | Pass | | | | +--------+ + + + + documented as of this encounter Visit Diagnoses Not on filedocumented in this encounter"
--- OUTSIDE RECORDS SUMMARY | ~2019-07-18 | XMS | Encounter Summary ---
Demographics + + + | Address | [address] | | | [place] [address] | + + + | Home Phone [...] Providers + +------+ + | Care Senior Chemist Name | Role | Phone | [...] | | | | | ADULT | [place] | | | | | | OPHTHALMOLOG | [address] | | | | | | Y | Phone: | | | | | | | [phone] | | | | | | | Fax: | | | | | | | [phone] | | + +--------+ + + + [...] | | | | | artery | [facility] [place] | | | | | | stenosis, | [address] | | | | | | right | Phone: | | | | | | Procedures | [phone] | | | | | | CTA HEAD AND | Fax: | | | | | | NECK W | [phone] | | | | | | CONTRAST [...] | | | | attack) S/P | [place], [place] | Mailcode: | | | | | carotid | [address] | [id number] | | | | | endarterecto | Phone: | [place] | | | | | my | [phone] | Research | | | | | Cerebrovascu | Fax: | Center [address] | | | | | lar accident | [phone] | floor | | | | | (CVA), | | [place], [place] | | | | | unspecified | | [address] | | | | | mechanism | | Phone: | | | | | ([facility]) | | [phone] | | | | | Procedures | | Fax: | | | | | CONSULT TO | | [phone] | | | | | NEUROLOGY | [...] endarterectomy | | | uled | [facility] | [address] | (Primary Dx); | | | | Rd [place], [place] | [place], [place] | Internal carotid | | | | [address] | [address] | artery stenosis, | | | | [phone] | [phone] | right; Blurred | | | | [...] original. NEUROLOGY TELESTROKE CLINIC INITIAL CONSULT NOTE ([facility]) Author: MARICHUY MINOR MD Reason for [...] right leg pain which was evaluated by [facility] spine service. Patient states that she [...] eye vision problems. Has not see n audio/visual manager or frame stripper for this. It is also unchanged. PMH: No date: Anticoagulated No date: Asthma No date: Blurred vision, right eye No date: Carotid occlusion, left No date: Carotid stenosis, right 05/28/2011: Claudication, intermittent ([facility]) 02/25/2013: CVA (cerebral vascular accident) ([facility]) No date: Double vision Comment: right eye No date: Emphysema lung ([facility]) No date: ETOH abuse No date: HTN (hypertension) No date: Hyperlipidemia No date: ICAO (internal carotid artery occlusion), left No date: Intracranial carotid stenosis No date: Lumbago No date: PAD (peripheral artery disease) ([facility]) No date: Personal history of tobacco [...] calcified which co uld create a shadow. image processing engineer bilaterally seen. Right ICA cervical origin widely [...] al antiplatelet therapy at this time, as snf use has not been shown to be [...] of right ICA stenosis, Will order at [facility] -Ophthalmology consultation, will refer to [facility] as it is local for rona orlandoAlisa [...] medications and F/U reviewed. Marichuy Minor M.D. [facility] documented in th is encounter [...] | | | | | | [place] [address] | | | | | | [phone] | | | | | | | [...]
--- OUTSIDE RECORDS SUMMARY | ~2019-07-18 | XMS | Encounter Summary ---
Demographics + + + | Address | [address] | | | [place] [address] | + + + | Home Phone [...] Team Providers + +------+ + | Care Banking Supervisor Name | Role | Phone | [...] | | lumbar | [place] | [facility] | | | | | region with | Rd | Rd [place], | | | | | neurogenic | [place], [place] | [place] | | | | | claudication | [address] | [address] | | | | | | Phone: | Phone: | | | | | Radiculopath | [phone] | [phone] | | | | | y, lumbar | Fax: | Fax: | | | | | region | [phone] | [phone] | | | | | Procedures | | | | | | | REQUEST TO | | | | | | | SURGERY | | | | | | | LUBRICATOR GRANULATOR | | | | | | | NE | | | | | | | LAMINEC/FACE | | | | | | | TECT/FORAMIN | | | | | | | ,LUMBAR NE | | | | | | | LAMINEC/FACE | | | | | | | TECT/FORAMIN | | | | | | | ,EACH ADDNL | | | | | | | NE | | | | | | | [...] radiculopath | [address] | [address] [facility] | | | | | y | [facility] | [facility] | | | | | Procedures | Rd | Rd [place], | | | | | EMG/NERVE | [place], [place] | [place] | | | | | CONDUCTION | [address] | [address] | | | | | STUDIES - | Phone: | Phone: | | | | | ORTHO | [phone] | [phone] | | | | | | Fax: | Fax: | | | | | | [phone] | [phone] | +--------+--------+ + + + + Reason [...] | | | | region | [place] [address] | [address] | | | | | | Phone: | Phone: | | | | | | [phone] | [phone] | | | | | | Fax: | Fax: | | | | | | [phone] | [phone] | +--------+--------+ + + + + Encounter Details +--------+---------+ + + + | Date | Type | Department | Care Team | Description | +--------+---------+ + + + | 05/17/ | Office | Spine Center at | Jarrod Barrett MD | Lumbar radiculopathy | | 2018 | Visit | [facility] [address] | [address] | (Primary Dx); Back | | | | Ave Mailcode: | [address] [place], | pain, unspecified | | | | [place] for [facility] | [place] [address] | back location, | | | | and Healing, | [phone] | unspecified back | | | | Building [address] | | pain laterality, | | | | [place], [place] | | unspecified | | | | [address] | | chronicity; Spinal | | | | [phone] | | stenosis of lumbar | | [...] Barrett MD - 05/17/2018 3:50 PM PDT [facility] Department of Neurological Surgery Referring Provider: SHAYE Wheat [address] [address] Chief Complaint: Patient presents with: New Patient [...] with prior physical therapy. She has tried behavioral health care manager without sustaine d relief. She has not [...] occlusion, left Carotid stenosis, right Claudication, intermittent ([facility]) 05/28/2011 HTN (hypertension) Hyperlipidemia Lumbago PAD (peripheral artery disease) ([facility]) Personal history of tobacco use TIA (transient [...] evidence of radiculopathy. She a nd her high pressure operator had several questions all of which were answered. She has my office number and will call us in the interim with any additional concerns. I spent 45 minutes avca-ye-zwlz with the patient. I spent more than 50% of this visit in co ordination of care and counseling in which we discussed diagnosis, treatment, imaging studie s and follow-up. Jarrod Barrett M.D. [facility] [place] Department of Neurological Surgery [address] [place] [address] documented in this enco unter Plan of Treatment +--------+ + + + + | Date | Type | Specialty | Care Team | Description | +--------+ + + + + | 06/17/ | Hospital | Adult Acute Care | Jarrod Barrett MD | | | 2019 | Encounter | | [address] | | | | | | [place], | | | | | | [place] [address] | | | | | | [phone] | | | | | | | [...] Note | + -+ | Service Account, [employer] In Interface - 05/17/2018 1:21 PM [...]
--- OUTSIDE RECORDS SUMMARY | ~2019-07-18 | XMS | Encounter Summary ---
Demographics + + + | Address | [address] | | | [place] [address] | + + + | Home Phone [...] Team Providers + +------+ + | Care Steam Pipe Fitter Name | Role | Phone | [...] lumbar | | 2019 | Visit | [facility] [address] | [address] | laminectomy (Primary | | | | Ave Mailcode: | [place], | Dx) | | | | [facility] | [place] [address] | | | | | and Healing, | [phone] | | | | | [place] [address] | | | | | | [place], [place] | | | | | | [address] | | | | | | [phone] | | | +--------+---------+ + + + [...] Barrett MD - 2019 1:05 PM PDT [facility] Department of Neurological Surgery Progress Note Chief [...] questions were answered. I spent 10 minutes invg-ft-swwh with the patient. I spent more than 50% of this visit in co ordination of care and counseling in which we discussed diagnosis, treatment, imaging studie s and follow-up. Jarrod Barrett MD Packaging Machine Operator Department of Neurological Surgery [facility] and [address] [address] documented in this enco unter Plan of Treatment +--------+ + + + + | Date | Type | Specialty | Care Team | Description | +--------+ + + + + | 06/17/ | Hospital | Adult Acute Care | Jarrod Barrett MD | | | 2019 | Encounter | | [address] | | | | | | [place], | | | | | | [place] [address] | | | | | | [phone] | | | | | | | [...]
--- OUTSIDE RECORDS SUMMARY | ~2019-07-18 | XMS | Encounter Summary ---
Demographics + + + | Address | [address] | | | [place] [address] | + + + | Home Phone [...] Team Providers + +------+ + | Care Dust Puller Name | Role | Phone | + [...] | | | 2019 | Event | [facility] | [address] | | | | | Admitting Desk | [place], | | | | | Located on the | [place] [address] | | | | | floor [address] | [phone] | | | | | [address] | | | | | | [place], [place] | Jass Huynh MD | | | | | [address] | [address] | | | | | | [address] | | | | | | [place], [place] | | | | | | [address] | | | | | | [phone] | | | | | | | [...] | | | | | [address] [place], | | | | | | [place] [address] | | | | | | [phone] | | | | | | | [...]
--- OUTSIDE RECORDS SUMMARY | ~2019-07-18 | XMS | Encounter Summary ---
Demographics + + + | Address | [address] | | | [place] [address] | + + + | Home Phone | | + + + | Preferred Language | Unknown | + + + | Marital Status | | + + + | Congregation Affiliation | Unknown | + + + [...] Team Providers + +------+ + | Care It Communications Specialist Name | Role | Phone | [...] | (medication is | | | | [place], | [place], | making her sick) | | | | [place] [address] | [place] [address] | | | | | [phone] | [phone] | | | | | | | [...] | | | | | [place] [address] | | | | | | [phone] | | | | | | | | +--------+---------+ + + + documented as of this encounter Visit Diagnoses Not on filedocumented in this encounter"
--- OUTSIDE RECORDS SUMMARY | ~2019-07-18 | XMS | Clinical Summary ---
Demographics + + + | Address | [address] | | | [place] [address] | + + + | Home Phone [...] Providers + +------+ + | Care Radio Rigger Name | Role | Phone | + +------+ + | Litzy Castillo MD | PCP | | + +------+ + Source Comments CORDELIAMANUEL is fully live on both EpicCare Ambulatory and EpicCare InPatient.[facility] Allergies + + + + [...] | | | | | [place] [address] [place], | | | | | | [place] [address] | | | | | | [phone] | | | | | | | [...] | MEDICA | xxxxxxxxxxx | 01/23/20 | [phone] | [address] | [address] | | | RE A & | | 09-Pre | 1 | [address] | re | | | B | | sent | | [place] | | | | | | | | [address] | | + +--------+ +--------+ + +--------+ | MEDICAID [place] | OHP | xxxxxxxx | 08/24/19 | [phone] | [address] | [address] | | | PLUS | | 19-Pre | 6 | [address] | id | | | OPEN | | sent | | [place], [place] | | | | CARD | | | | [address] | | + +--------+ +--------+ + +--------+ [...] | | al/Fam | | 1955 | [phone] | # [address] [place] | | | [place]anna | | | 6 (Home) | [address] | + +--------+ +--------+ + + Advance Directives + + + + + | Type | Date Recorded | Patient | Explanation | | | | Biomedical Electronics Technician | | + + + + + | Advance | | | | | Directives and | | | | | Living Will | | | | + + + + + | Power of | | | | | Life Science Research Assistant | | | | + + + [...]
--- OUTSIDE RECORDS SUMMARY | ~2019-07-18 | XMS | Encounter Summary ---
Demographics + + + | Address | [address] | | | [place] [address] | + + + | Home Phone | | + + + | Preferred Language | Unknown | + + + | Marital Status | Single | + + + | Taoist Affiliation | NON | + + + [...] Team Providers + +------+ + | Care Product Design Specialist Name | Role | Phone | [...] Double vision | | 2018 | | [facility] [address] | [address] | | | | | [place] Mailcode: | [place] [address] [facility] | | | | | [facility] | [place] [address] | | | | | and [place], | [phone] | | | | | [facility] | | | | | | [place], [place] | | | | | | [address] | | | | | | [phone] | | | +--------+ + + + [...] | | | | | [place], | | | | | | [place] [address] | | | | | | [phone] | | | | | | | | +--------+ + + + + | 06/18/ | Procedure | Surgery | | | | 2020 | Pass | | | | +--------+ + + + + documented as of this encounter Visit Diagnoses Not on filedocumented in this encounter"
--- OUTSIDE RECORDS SUMMARY | ~2019-07-18 | XMS | Encounter Summary ---
Demographics + + + | Address | [address] | | | [place] [address] | + + + | Home Phone | | + + + | Preferred Language | Unknown | + + + | Marital Status | | + + + | Jehovah'S Witness Affiliation | Unknown | + + + | Race | Unknown | + + + | Ethnic Group | Unknown | + + + Author + + + | Author | [facility] | | | and [place] | + + + | Organization | [facility] | [...] Team Providers + +------+ + | Care Tack Cutter Name | Role | Phone | [...] + | 05/20/ | Telephone | [facility] | Melany Paez, | Other (Referral) | | 2011 | | SURGERY [address] | RN | | | | | [place], [place] | | | | | | [address] | | | | | | [phone] | | | +--------+ + + + [...] | | | | | [place] [address] | | | | | | [phone] | | | | | | | | +--------+---------+ + + + documented as of this encounter Visit Diagnoses Not on filedocumented in this encounter"
--- OUTSIDE RECORDS SUMMARY | ~2019-07-18 | XMS | Encounter Summary ---
Demographics + + + | Address | [address] | | | [place] [address] | + + + | Home Phone | | + + + | Preferred Language | Unknown | + + + | Marital Status | Single | + + + | Quaker Affiliation | NON | + + + [...] Team Providers + +------+ + | Care Correction Officer Name | Role | Phone | [...] | | | | attack) S/P | [place], [place] | Mailcode: | | | | | carotid | [address] | [id number] | | | | | endarterecto | Phone: | [place] | | | | | | [phone] | Research | | | | | Cerebrovascu | Fax: | [address] | | | | | lar accident | [phone] | floor | | | | | (CVA), | | [place], [place] | | | | | unspecified | | [address] | | | | | mechanism | | Phone: | | | | | (HCC) | | [phone] | | | | | Procedures | | Fax: | | | | | CONSULT TO | | [phone] | | | | | NEUROLOGY | [...] Referral to | | 2018 | | [facility] [address] | [address] | neurology service | | | | [place] Mailcode: | [place], | | | | | [facility] | [place] [address] | | | | | and [place], | [phone] | | | | | [place] [address] | | | | | | [place], [place] | | | | | | [address] | | | | | | [phone] | | | +--------+ + + + [...] | | | | | | [place] [address] | | | | | | [phone] | | | | | | | [...]
--- OUTSIDE RECORDS SUMMARY | ~2019-07-18 | XMS | Clinical Summary ---
Demographics + + + | Address | [address] | | | [place] [address] | + + + | Home Phone [...] Team Providers + +------+ + | Care Tooling Specialist Name | Role | Phone | + +------+ + | Litzy Castillo MD | PCP | | + +------+ + Source Comments CORDELIAMANUEL is fully live on both EpicCare Ambulatory and EpicCare InPatient.[facility] Allergies + + + + [...] | | | | [place], | | | | | | [place] [address] | | | | | | [phone] | | | | | | | [...] | MEDICA | xxxxxxxxxxx | 01/23/20 | [phone] | [address] | [address] | | | RE A & | | 09-Pre | 1 | [address] | re | | | B | | sent | | [place] | | | | | | | | [address] | | + +--------+ +--------+ + +--------+ | MEDICAID [place] | OHP | xxxxxxxx | 08/24/19 | [phone] | [address] | [address] | | | PLUS | | 19-Pre | 6 | [address] | id | | | OPEN | | sent | | [place], [place] | | | | CARD | | | | [address] | | + +--------+ +--------+ + +--------+ [...] | | al/Fam | | 1955 | [phone] | # [address] [place] | | | [place]anna | | | 6 (Home) | [address] | + +--------+ +--------+ + + Advance Directives + + + + + | Type | Date Recorded | Patient | Explanation | | | | Home School Coordinator | | + + + + + | Advance | | | | | Directives and | | | | | Living Will | | | | + + + + + | Power of | | | | | Engineering Document Control Clerk | | | | + + + [...]
--- OUTSIDE RECORDS SUMMARY | ~2019-07-18 | XMS | Encounter Summary ---
Demographics + + + | Address | [address] | | | [place] [address] | + + + | Home Phone [...] Team Providers + +------+ + | Care Metal Leaf Layer Name | Role | Phone | + +------+ + | Heide Bhatti | PCP | | + +------+ + Encounter Details +--------+ + + + + | Date | Type | Department | Care Team | Description | +--------+ + + + + | 05/17/ | Hospital | Radiology/Imaging | Jarrod Barrett MD | | | 2018 | Encounter | Lab at [facility] [address] | [address] | | | | | [place] [address] Mailcode: | [place], | | | | | [facility] | [place] [address] | | | | | and [place], | [phone] | | | | | [facility] | | | | | | Floor [place], [place] | | | | | | [address] | | | | | | [phone] | | | +--------+ + + + [...] | | | | | [place], | | | | | | [place] [address] | | | | | | [phone] | | | | | | | [...]
--- OUTSIDE RECORDS SUMMARY | ~2019-07-18 | XMS | Encounter Summary ---
Demographics + + + | Address | [address] | | | [place] [address] | + + + | Home Phone [...] Providers + +------+ + | Care Plate Slitter And Inspector Name | Role | Phone | [...] Visit | Medicine Clinic at | S, CONTROL SPECIALIST [address] | (Primary Dx); S/P | | | | [facility] | [address] | carotid | | | | [address] | [facility] [place] | endarterectomy; TIA | | | | Mail Code: [id number] | [address] | (transient ischemic | | | | [facility] | [phone] | attack); | | | | and Healing, | | Claudication, | | | | Building [address] | | intermittent (HCC); | | | | [place], [place] | | PVD (peripheral | | | | [address] | | vascular disease) | | | | [phone] | | (HCC); H/O | | | [...] the test is negative, then no call! [facility] wipe packet and instructions on proper skin [...] sit, stand or walk. [facility] Surgery Check in Time: The [...] it is after office hours, call the [facility] acetylene torch operator at [phone] and ask them to page him or [...] able to contact her son Jarad at [phone] and he will try to get a [...] patch on 11/20/[address] Izaguirre at [facility]. Patient was started on ASA 325mg PO Daily at that time. She then had recurrent TIAs in 05/2011 and w as seen by neurology at [facility]. Per neurology note from 05/28/2011, "Patient's symptoms are lik dee 2/2 verebrobasilar insufficiency versus anterior circulation. 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 from [facility] in [place], [place]. Patient monitored ere and discharged home [...] patch on 11/20/[address] Izaguirre at [facility]. Patient was started on ASA 325mg PO Daily at that time. Recurrent TIAs in 05/2011 and seen by neurology at [facility]. Per neurology note from 05/28/2011, "Patient's symptoms are likely 2/2 verebrobasilar insufficiency versus anterior circulation. 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 Patient monitored there and discharged home [...] of sleep apnea Risk factors for sleep treasury consultant ea: Pt SNORE's loudly (louder than talking) [...] longstanding since asthma attack in 2003 in [place]. No recent cardiology evaluation. HTN - on atenolol and valsartan HLD - on statin PAD - s/p right aorto-fem bypass in 1997 Carotid artery stenosis s/p right CEA in 2009. No recent carotid duplex. Functional Capaci ty: Low PAD carotid artery stenosis hypertension well controlled GI/Hepatic: Within Defined Limits except as noted below Renal: Within Defined Limits except as noted below Urology/Field Logistics Coordinator: Within Defined Limits except as noted below [...] patch on 11/20/[address] Izaguirre at [facility]. Patient was sta rted on ASA 325mg PO Daily at that time. Recurrent TIAs in 05/2011 and seen by neurology at [facility]. Per neurology note from 05/28/2011, "Patient's symptoms are likely 2/2 verebrobasilar insufficiency versus anterior circulation . 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 Patient has areas of intracranial stenosis, and based on most recent SAMMPRIS study, maximum medical therapy is superior to intracranial stenting." Patient was started on Plavix and ASA at [facility]. She stopped Plavix after 3 months and continues ASA. Acute CVA s/p TPA on 02/25/[address] [facility] from [facility] in [place], [place]. Patient monitored there and discharged home [...] occlusion, left Carotid stenosis, right Claudication, intermittent ([facility]) 05/28/2011 CVA (cerebral vascular accident) ([facility]) 02/25/2013 Double vision right eye Emphysema lung ([facility]) ETOH abuse HTN (hypertension) Hyperlipidemia ICAO (internal carotid artery occlusion), left Intracranial carotid stenosis Lumbago PAD (peripheral artery disease) ([facility]) Personal history of tobacco use Smoking [...] patch on 11/20/[address] Izaguirre at [facility] . Patient was started on ASA 325mg PO Daily at that time. Recurrent TIAs in 05/2011 and seen by neurology at [facility]. Per neurology note from 05/28/2011, "Patient's symptoms are likely 2/2 verebrobasilar insufficiency versus anterior circulation. 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 Patient monitored there and discharged home [...] contribute to this patient's care. CECELIA Rivas [facility] PREOPER[facility] AT [facility] 4TH FLOOR [address] [place] [address] I advised the patient regarding NPO requirements, hydration before surgery, showering, gene ral body hygiene. All pre-procedure instructions given to the patient (after-visit summary) . All of patient's questions were addressed. The patient verbalized understanding of the i nstructions given. Orlando Braedn MA - 06/17/2018 2:50 PM PDTVenipuncture performed [...] | | | | | [address] [place], | | | | | | [place] [address] | | | | | | [phone] | | | | | | | [...] + +--------+ + + | COMMUNICATION TO [facility] | Procedures | Routin | Preop examination | Ordered: 06/17/2018 | | LAB DRAW | | e | | | + + +--------+ + + documented as of this encounter Procedures + +--------+ + + + | Procedure Name | Priori | Date/Time | Associated Diagnosis | Comments | | | ty | | | | + +--------+ + + + | OH COLLECTION VENOUS | Routin | 06/17/2018 | [...] | + + + + + | [facility] | [address] | [place] [address] | | | SERVICES, CORE | SILVIA [...] [facility] | [address] | [place] [address] | | | SERVICES, | [address] [...] + + + + + | [facility] | [address] | [place] [address] | | | SERVICES, | [address] [...] [facility] | [address] | [place] [address] | | | SERVICES, ANJALI | SILVIA [...] - | | | | | | [facility] | | + +-------+ + + + + + | Specimen | + + | Blood - Blood | | (substance) | + + + + + + + | Performing | Address | City/State/Zipcode | Phone Number | | Organization | | | | + + + + + | [facility] | [address] | [place] [address] | | | [place] | | | [...] | | | LABORATORY | | | [place] | | | SERVICES, | | | [...] + + + + + | [facility] | [address] | [place] [address] | | | SERVICES, CORE | SILVIA [...] DEPT OF | [address] | [place], [place] | | | CARDIOLOGY | [address] | [address] | | + + + + + [...]
--- OUTSIDE RECORDS SUMMARY | ~2019-07-18 | XMS | Encounter Summary ---
Demographics + + + | Address | [address] | | | [place] [address] | + + + | Home Phone [...] + | Author | [facility] | | | and [place] | + + + | Organization | [facility] | | | [...] Team Providers + +------+ + | Care Cone Winder Name | Role | Phone | + +------+ + | Litzy Castillo MD | PCP | | + +------+ + Encounter Details +--------+ + + + + | Date | Type | Department | Care Team | Description | +--------+ + + + + | 08/28/ | Hospital | [facility] | Conversion | Pain | | 2019 | Encounter | [address] | Transaction, | | | | | [address] | Provider Unknown | | | | | [place], [place] | [phone] | | | | | [address] | | | | | | [phone] | | | +--------+ + + + [...] [address] | | | | | | [place] [address] | | | | | | [phone] | | | | | | | [...]
--- OUTSIDE RECORDS SUMMARY | ~2019-07-18 | XMS | Encounter Summary ---
Demographics + + + | Address | [address] | | | [place] [address] | + + + | Home Phone [...] Team Providers + +------+ + | Care Novelties Sales Representative Name | Role | Phone | + +------+ + | Heide Bhatti | PCP | | + +------+ + Encounter Details +--------+ + + + + | Date | Type | Department | Care Team | Description | +--------+ + + + + | 10/01/ | Telephone | [facility] | Iván, | | | 2011 | | [facility] [place] | MD Marichuy | | | | | [facility] | | | | | | [address] | | | | | | [place] Mailcode: | | | | | | [address] [place] | | | | | | [facility] | | | | | | floor [place], [place] | | | | | | [address] | | | | | | [phone] | | | +--------+ + + + [...] | | | | | Ana Art [facility] | | | | | | [place] [address] | | | | | | [phone] | | | | | | | | +--------+ + + + + | 06/18/ | Procedure | Surgery | | | | 2019 | Pass | | | | +--------+ + + + + documented as of this encounter Visit Diagnoses Not on filedocumented in this encounter"
--- OUTSIDE RECORDS SUMMARY | ~2019-07-18 | XMS | Encounter Summary ---
Demographics + + + | Address | [address] | | | [place] [address] | + + + | Home Phone | | + + + | Preferred Language | Unknown | + + + | Marital Status | | + + + | Baptist Affiliation | Unknown | + + + | Race | Unknown | + + + | Ethnic Group | Unknown | + + + Author + + + | Author | [facility] | | | and [place] | + + + | Organization | [facility] | | | [...] Team Providers + +------+ + | Care Bread Pan Greaser Name | Role | Phone | + [...] | | | | [address] [facility] | [facility], | | | | | [place], [place] | [place] [address] | | | | | [address] | [phone] | | | | | [phone] | | | +--------+ + + + [...] MARCAN[place] | | | | | | [place] [address] | | | | | | [phone] | | | | | | | | +--------+---------+ + + + documented as of this encounter Visit Diagnoses Not on filedocumented in this encounter"
--- OUTSIDE RECORDS SUMMARY | ~2019-07-18 | XMS | Encounter Summary ---
Demographics + + + | Address | [address] | | | [place] [address] | + + + | Home Phone [...] Team Providers + +------+ + | Care Vehicle Upholsterer Name | Role | Phone | + +------+ + | Litzy Castillo MD | PCP | | + +------+ + Encounter Details +--------+ + + + + | Date | Type | Department | Care Team | Description | +--------+ + + + + | // | Outside | UNKNOWN DEPARTMENT | Other, Faculty | | | 2018 | Records | [address] [facility] | [phone] | | | | | [address] | | | | | | [place], [place] | | | | | | [address] | | | +--------+ + + + [...] | | | | | [place], | | | | | | [place] [address] | | | | | | [phone] | | | | | | | [...]
--- OUTSIDE RECORDS SUMMARY | ~2019-07-18 | XMS | Encounter Summary ---
Demographics + + + | Address | [address] | | | [place] [address] | + + + | Home Phone [...] Team Providers + +------+ + | Care Membership Secretary Name | Role | Phone | [...] + + | 07/19/ | Telephone | [facility] | Iván, | Referral | | 2017 | | [facility] [place] | MD Marichuy [address] | | | | | [facility] | [address] | | | | | [address] | [place], [place] | | | | | [place] [address] Mailcode: | [address] | | | | | [address] | [phone] | | | | | [facility] | | | | | | [place], [place] | | | | | | [address] | | | | | | [phone] | | | +--------+ + + + [...] | | | | | [place], | | | | | | [place] [address] | | | | | | [phone] | | | | | | | | +--------+ + + + + | 06/18/ | Procedure | Surgery | | | | 2019 | Pass | | | | +--------+ + + + + documented as of this encounter Visit Diagnoses Not on filedocumented in this encounter"
--- OUTSIDE RECORDS SUMMARY | ~2019-07-18 | XMS | Encounter Summary ---
Demographics + + + | Address | [address] | | | [place] [address] | + + + | Home Phone | | + + + | Preferred Language | Unknown | + + + | Marital Status | | + + + | Episcopal Affiliation | Unknown | + + + | Race | Unknown | + + + | Ethnic Group | Unknown | + + + Author + + + | Author | [facility] | | | and [place] | + + + | Organization | [facility] | | [...] Providers + +------+ + | Care Machine Clothing Replacer Name | Role | Phone | + [...] | | | | [place], [place] | [address] | | | | | [address] | [phone] | | | | | [phone] | | | +--------+ + + + [...] | | | | | [place] [address] | | | | | | [phone] | | | | | | | | +--------+---------+ + + + documented as of this encounter Visit Diagnoses Not on filedocumented in this encounter"
--- OUTSIDE RECORDS SUMMARY | ~2019-07-18 | XMS | Encounter Summary ---
Demographics + + + | Address | [address] | | | [place] [address] | + + + | Home Phone | | + + + | Preferred Language | Unknown | + + + | Marital Status | Single | + + + | Jain Affiliation | NON | + + + | Race | White | + + + | Ethnic Group | Not or | + + + Author + + + | Author | [facility] | + + + | Organization | [facility] | + + + | [...] Team Providers + +------+ + | Care Journeyman Powerhouse Operator Name | Role | Phone | [...] Post-discharge | | 2019 | | [facility] [address] | [address] | follow-up (s/p | | | | Ave Mailcode: | [place], | lumbar laminectomy | | | | [facility] | [place] [address] | (dos: 12/14/18)) | | | | [address] [place], | [phone] | | | | | [facility] [address] | | | | | | [place], [place] | | | | | | [address] | | | | | | [phone] | | | +--------+ + + + [...] | | | | | [place], | | | | | | [place] [address] | | | | | | [phone] | | | | | | | | +--------+ + + + + | 06/18/ | Procedure | Surgery | | | | 2019 | Pass | | | | +--------+ + + + + documented as of this encounter Visit Diagnoses Not on filedocumented in this encounter"
--- OUTSIDE RECORDS SUMMARY | ~2019-07-18 | XMS | Encounter Summary ---
Demographics + + + | Address | [address] | | | [place] [address] | + + + | Home Phone | | + + + | Preferred Language | Unknown | + + + | Marital Status | | + + + | Christian Affiliation | Unknown | + + + [...] Team Providers + +------+ + | Care Traffic Control Officer Name | Role | Phone | [...] Unknown | | | | | [place], [place] | [phone] | | | | | [address] | | | | | | [phone] | | | +--------+ + + + [...] | | | | | | [place] [address] | | | | | | [phone] | | | | | | | [...]
--- OUTSIDE RECORDS SUMMARY | ~2019-07-18 | XMS | Encounter Summary ---
Demographics + + + | Address | [address] | | | [place] [address] | + + + | Home Phone [...] Team Providers + +------+ + | Care Factory Worker Name | Role | Phone | + +------+ + | Litzy Castillo MD | PCP | | + +------+ + Encounter Details +--------+ + + + + | Date | Type | Department | Care Team | Description | +--------+ + + + + | 08/27/ | Hospital | [facility] | Conversion | Diagnosis unknown | | 2019 | Encounter | [address] | Transaction, | | | | [address] | Provider Unknown | | | | | [place], [place] | [phone] | | | | | [address] | | | | | | [phone] | | | +--------+ + + + [...] [address] | | | | | | [place] [address] | | | | | | [phone] | | | | | | | [...]
--- OUTSIDE RECORDS SUMMARY | ~2019-07-18 | XMS | Encounter Summary ---
Demographics + + + | Address | [address] | | | [place] [address] | + + + | Home Phone [...] Team Providers + +------+ + | Care Dry Roaster Name | Role | Phone | + [...] | | | | | ECHOCARDIOGR | [place], [place] | Mailcode: | | | | | AM, ADULT | [address] | [id number] | | | | | | Phone: | Harlan Prater | | | | | | [phone] | [facility] | | | | | | Fax: | [place], [place] | | | | | | [phone] | [address] | | | | | | | Phone: | | | | | | | [phone] | +--------+--------+ + + + + Diagnostic [...] Rd | | | | | | [place], [place] | Mailcode: | | | | | | [address] | [address] [facility] | | | | | | Phone: | Hospital | | | | | | [phone] | [place], [place] | | | | | | Fax: | [address] | | | | | | [phone] | Phone: | | | | | | | [phone] | | | | | | | Fax: | | | | | | | [phone] | +--------+--------+ + + + + Diagnostic [...] | | | | | COMPLETE | [place], [place] | Rd Mailcode: | | | | | BILATERAL | [address] | [address] | | | | | | Phone: | Physician's | | | | | | [phone] | Pavilion | | | | | | Fax: | [place], [place] | | | | | | [phone] | [address] | | | | | | | Phone: | | | | | | | [phone] | | | | | | | Fax: | | | | | | | [phone] | +--------+--------+ + + + + Reason [...] | | | | | | [facility] [place] | | | | | | | [address] | | | | | | | Phone: | | | | | | | [phone] | | | | | | | Fax: | | | | | | | [phone] | +--------+--------+ + + + + Encounter Details +--------+ + + + + | Date | Type | Department | Care Team | Description | +--------+ + + + + | 11/16/ | Hospital | [facility] [address] | Emi Arroyo MD | | | 2009 - | Encounter | [address] | [address] | | | | | [id number] [facility] | [address] [place], | | | 11/21/ | | [place], | [place] [address] | | | 2009 | | [place] [address] | [phone] | | | | | [phone] | | | | | | | Tru Barroso MD | | | | | | [address] | | | | | | [place], | | | | | | [place] [address] | | | | | | [phone] | | | | | | | [...] in this encounter Discharge Summaries Christa Herrera, MANAGER DRUG SAFETY - 11/21/2009 11:56 AM PDTFormatting of this [...] carotid arteries. She was transfer red to [facility] and admitted on 11-16-09. [facility] Neuro-Stroke consult was obtained and CTA of [...] drainage, o r fever > 100.5. Call [facility] Vascular Surgery clinic if there are signs of infection Diet Regular Activity Restrictions: Activity level at discharge Up unrestricted HOB Position 30 Degrees Driving Restrictions No Driving until off pain meds Bathing Restrictions Shower is okay, keep wound open to air Destination: Destination: Home Condition on Discharge Good Discharge Follow Up Provider and Clinic: [facility] Vascular Surgery Clinic [address], [phone] Appointment: Call to make an appointment in 2 weeks Other Discharge Orders and Instructions Recommend continued smoking cessation, use Nicotine patches and followup with PCP for [facility] er assistance to stay smoke free. CECELIA MCNEAL [place] [address] [facility] [id number] [facility] [address] Discharging Physician: CECELIA MCNEAL Attending Physician: Tru [...] lifestyle changes may be recommended. Hospitalization or shelter car e is decided upon an individual [...] are getting worse. ExitCare Patient Information 2006 SCYNEXIS. INPATIENT NURSE ORDER FOR DISCHARGE AND INTERDISCIPLINARY [...] (when applicable) Phone #: Discharge Nurse: Carol Waer Date: 11/21/2009 Discharge Time: 11:06 AM AttachmentsThe [...] as of this encounter Progress Notes Gustavo eRece MD - 11/21/2009 9:17 AM PDTI saw and evaluated the patient. I agree with the findings and the plan of care as documented in the resident s note. GUSTAVO REECE MD [facility] [address]KI [address] [id number] [facility] [address] Richard Ott MD - 2009 9:17 AM [...] with plan. TRU BAXTER MD VASCULAR SURGERY, [address] [place] [address] Email: [email or web address] Kurt Mccoy - 5:33 PM PDTTransthoracic echocardiogram [...] exam and care plan as per the warehouse manager and rex perez examined the [...] the angiogram. She has not had an SC or AF, although did have a history [...] candidate since h er symptoms have resolved. [facility] DEPARTMENT: MARIA LUISA STROKE [facility] - [id number] Place of Service: - CSN: [id number] Suggested Modifer: GC Resident Present Suggested Level of Service: 77466 - Consults, Comp/mod complex 80 min Suggested [...] | | | | | [place], | | | | | | [place] [address] | | | | | | [phone] | | | | | | | [...] [facility] RES[facility] | [address] | [place], [place] | | | THERAPY | [address] | [address] | | + + + + + [...] DEPARTMENT | [address] | [place] [address] | | | PATHOLOGY | [address] [...] | + + + + + | [facility] | [address] | [place] [address] | | | PATHOLOGY | [address] [...] | + + + + + | [facility] DEPARTMENT OF | [address] | [place] [address] | | | PATHOLOGY | [address] [...] DEPARTMENT OF | [address] | [place] [address] | | | PATHOLOGY | [address] [...] | + + + + + | [facility] DEPARTMENT OF | [address] | [place] [address] | | | PATHOLOGY | [address] [...] | | | | | JULIAN OWENS ([id number]) | | | | | | on [...] view image for the detailed interpretation from [employer] results. | CARDIOLOGY | | | | + + + + + + + + | Performing | Address | City/State/Zipcode | Phone Number | | Organization | | | | + + + + + | [facility] DEPT [facility] | [address] | [place], [place] | | | CARDIOLOGY | [facility] | [address] | | + + + + + [...] | + + + + + | [facility] | [address] | [place] [address] | | | PATHOLOGY | [address] [...] | [facility] DEPARTMENT OF | [address] | [place] [address] | | | PATHOLOGY | [address] [...] + + | [facility] DEPARTMENT OF | [address] | [place] [address] | | | PATHOLOGY | [address] [...] OF | [address] | [place] [address] | | | PATHOLOGY | [address] [...] | + + + + + | [facility] | [address] | [place] [address] | | | PATHOLOGY | [address] [...] | + + + + + | [facility] | [address] | [place] [address] | | | PATHOLOGY | [address] [...] | + + + + + | [facility] | [address] | [place] [address] | | | PATHOLOGY | [address] | | | + + + + + OPERATION RECORD (11/20/2009 12:00 AM PDT) + + + | Narrative | Performed At | + + + | [id number] | | | [id number] | | | [id number] JENNY MONAE [id number] | | | Date: 11/20/2009 Attending | | | Surgeon: Tru Barroso M.D. | | | Craft Manager(s): Shanta Rubi M.D. | | | Preoperative [...] procedure well. TRU BARROSO, | | | crnp [facility] / [id number] / [id number] / [id number] / | | | | | + + + + + | Procedure Note | + + | Tru Barroso MD - 11/20/2009 12:00 AM PDT [id number] | | [id number] [facility] [place] | | [id number] Date: 11/20/2009 Attending Surgeon: | | Tru Barroso M.D. Craft Manager(s): Shanta Rubi M.D. | | Preoperative Diagnosis(es):Symptomatic [...] of presentation was found to have an gdqeqdjwogvsm77% stenosis of the | | right internal [...] tolerate | | theprocedure well. TRU BARROSO, [facility] / [id number] / [id number] / | | [id number] / T: 11/21/2009 | |external carotid and [...] | | | |TRU BARROSO MD | |crnp | | | | | |[facility] / | |[id number] / [id number] / [id number] / | | | | | | [...] | + + + + + | [facility] | [address] | [place] [address] | | | PATHOLOGY | [address] [...] | + + + + + | [facility] DEPARTMENT OF | [address] | [place] [address] | | | PATHOLOGY | [address] [...] | + + + + + | [facility] | [address] | [place] [address] | | | PATHOLOGY | [address] | | | + + + + + MAGNESIUM, PLASMA (11/19/2009 6:08 AM PDT) + +-------+ + + + | Component | Value | Ref Range | Performed | Pathologist | | | | | At | Signature | + +-------+ + + + | MAGNESIUM,P | 2.4 | 1.8 - 2.5 mg/dL | [facility] | | | LASMA | | | [...] | + + + + + | [facility] DEPARTMENT OF | [address] | [place] [address] | | | PATHOLOGY | [address] [...] DEPARTMENT OF | [address] | [place] [address] | | | PATHOLOGY | [address] [...] DEPARTMENT OF | [address] | [place] [address] | | | PATHOLOGY | [address] [...] | + + + + + | [facility] | [address] | [place] [address] | | | PATHOLOGY | [address] [...] [facility] DEPARTMENT | [address] | [place] [address] | | | PATHOLOGY | [address] [...] | + + + + + | [facility] DEPARTMENT | [address] | [place] [address] | | | PATHOLOGY | [address] [...] | + + + + + | [facility] DEPARTMENT OF | [address] | [place] [address] | | | PATHOLOGY | [address] [...] DEPARTMENT OF | [address] | [place] [address] | | | PATHOLOGY | [address] [...] | + + + + + | [facility] DEPARTMENT OF | [address] | [place] [address] | | | PATHOLOGY | [address] [...] DEPARTMENT OF | [address] | [place] [address] | | | PATHOLOGY | [address] [...] | + + + + + | [facility] DEPARTMENT OF | [address] | [place] [address] | | | PATHOLOGY | [address] [...] | + + + + + | [facility] DEPARTMENT OF | [address] [facility] | [place] [address] | | | PATHOLOGY | [address] [...] | + + + + + | [facility] | [address] | [place] [address] | | | PATHOLOGY | [address] [...] | + + + + + | [facility] | [address] | [place] [address] | | | PATHOLOGY | [address] [...] | + + + + + | [facility] | [address] | [place] [address] | | | PATHOLOGY | [address] [...] RESPIRATORY | [address] | [place] | | | THERAPY | [address] | [address] | | + + + + + [...] | | | | | Author: RAYMOND PRINEC | | | | | | JohnathanReviewer: [...] | | + +---------+ + + | [facility] DEPARTMENT OF | | | | [...] | | + +---------+ + + | [facility] DEPARTMENT OF | | | | [...] | + + + + + | [facility] DEPARTMENT OF | [address] | [place] [address] | | | PATHOLOGY | [address] [...] | | | | | CAROTID | [id number] Name: | | | | | DUPLEX [...] # | | | | | | [id number] | | | | | | RESULT:CEREBROVASCULAR [...] | + + + + + | [facility] | [address] | [place] [address] | | | PATHOLOGY | [address] [...] | + + + + + | [facility] DEPARTMENT | [address] | [place] [address] | | | PATHOLOGY | [address] [...] | + + + + + | [facility] | [address] | [place] [address] | | | PATHOLOGY | [address] | | | + + + + + MAGNESIUM, PLASMA (11/16/2009 11:05 AM PDT) + +-------+ + + + | Component | Value | Ref Range | Performed | Pathologist | | | | | At | Signature | + +-------+ + + + | MAGNESIUM,P | 2.3 | 1.8 - 2.5 mg/dL | [facility] | | | LASMA | | | [...] | + + + + + | [facility] DEPARTMENT OF | [address] | [place] [address] | | | PATHOLOGY | [address] [...] | + + + + + | [facility] | [address] | [place] [address] | | | PATHOLOGY | [address] [...] | + + + + + | [facility] | [address] | [place] [address] | | | PATHOLOGY | [address] [...] | | | | | PORTABLE | [id number] Name: | | | | | ABDOMINAL [...] # | | | | | | [id number] RESULT:GRAFT | | | | | | [...] Cathie | | | | | | [place] | | | | | | | | | | | |STATUS FINAL / Dr. TRU BAXTER | | | | | |STATUS PRELIMINARY - UNSIGNED / Cathie [place] | | | | | | | [...] [facility] RES[facility]ORY | [address] | [place], [place] | | | THERAPY | [address] | [address] | | + + + + + [...] DEPARTMENT OF | [address] | [place] [address] | | | PATHOLOGY | [address] [...] | + + + + + | [facility] | [address] | [place] [address] | | | PATHOLOGY | [address] [...] [facility] | [address] | [place], [place] | | | THERAPY | [address] | [address] | | + + + + + [...] view image for the detailed interpretation from [employer] results. | CARDIOLOGY | | | | + + + + + + + + | Performing | Address | City/State/Zipcode | Phone Number | | Organization | | | | + + + + + | [facility] DEPT OF | [address] | [place], [place] | | | CARDIOLOGY | [address] | [address] | | + + + + + [...]
--- OUTSIDE RECORDS SUMMARY | ~2019-07-18 | XMS | Encounter Summary ---
Demographics + + + | Address | [address] | | | [place] [address] | + + + | Home Phone [...] Providers + +------+ + | Care Business Sales Consultant Name | Role | Phone | + +------+ + PCP | Unavailable | + +------+ + Encounter Details +--------+ + + + + | Date | Type | Department | Care Team | Description | +--------+ + + + + | 07/23/ | Hospital | [place] [facility] | Matheus Corado MD | | | 2012 | Encounter | [facility] | [address] | | | | | [facility] [address] | [place], [place] | | | | | [address] [place], | [address] | | | | | [place] [address] | | | | | | [phone] | | | +--------+ + + + [...] | | | | | [place] [address] | | | | | | [phone] | | | | | | | | +--------+---------+ + + + documented as of this encounter Visit Diagnoses Not on filedocumented in this encounter"
--- OUTSIDE RECORDS SUMMARY | ~2019-07-18 | XMS | Encounter Summary ---
Demographics + + + | Address | [address] | | | [place] [address] | + + + | Home Phone [...] Team Providers + +------+ + | Care Gaming Associate Name | Role | Phone | + +------+ + | Heide Bhatti | PCP | | + +------+ + Encounter Details +--------+ + + + + | Date | Type | Department | Care Team | Description | +--------+ + + + + | 02/16/ | [facility] | Vascular Surgery | Kaveh Izaguirre MD | | | 2011 | | at [facility] 2nd Floor | [address] | | | | | [address] | [address] [place], | | | | | [address] Mailcode: | [place] [address] | | | | | [address] Physician's | [phone] | | | | | [place], | | | | | | [place] [address] | | | | | | [phone] | | | +--------+ + + + [...] | | | | | [address] [place], | | | | | | [place] [address] | | | | | | [phone] | | | | | | | | +--------+ + + + + | 06/18/ | Procedure | Surgery | | | | 2020 | Pass | | | | +--------+ + + + + documented as of this encounter Visit Diagnoses Not on filedocumented in this encounter"
--- OUTSIDE RECORDS SUMMARY | ~2019-07-18 | XMS | Encounter Summary ---
Demographics + + + | Address | [address] | | | [place] [address] | + + + | Home Phone | | + + + | Preferred Language | Unknown | + + + | Marital Status | | + + + | Methodist Affiliation | Unknown | + + + [...] Team Providers + +------+ + | Care Core Inspector Name | Role | Phone | [...] | | | [place], [place] | [place] [address] | | | | | [address] | [phone] | | | | | [phone] | | | +--------+ + + + [...] [address] | | | | | | [place] [address] | | | | | | [phone] | | | | | | | | +--------+---------+ + + + documented as of this encounter Visit Diagnoses Not on filedocumented in this encounter"
--- OUTSIDE RECORDS SUMMARY | ~2019-07-18 | XMS | Encounter Summary ---
Demographics + + + | Address | [address] | | | [place] [address] | + + + | Home Phone [...] Providers + +------+ + | Care Medical I D Sales Name | Role | Phone | [...] lumbar | | 2019 | Visit | [facility] [address] | [address] | laminectomy (Primary | | | | Ave Mailcode: | [place], | Dx) | | | | [facility] | [place] [address] | | | | | and Healing, | [phone] | | | | | [place] [address] | | | | | | [place], [place] | | | | | | [address] | | | | | | [phone] | | | +--------+---------+ + + + [...] Barrett MD - 2019 1:05 PM PDT [facility] Department of Neurological Surgery Progress Note Chief [...] questions were answered. I spent 10 minutes epye-je-ajic with the patient. I spent more than 50% of this visit in co ordination of care and counseling in which we discussed diagnosis, treatment, imaging studie s and follow-up. Jarrod Barrett MD Coat Maker Department of Neurological Surgery [facility] and [address] [address] documented in this enco unter Plan of Treatment +--------+ + + + + | Date | Type | Specialty | Care Team | Description | +--------+ + + + + | 06/17/ | Hospital | Adult Acute Care | Jarrod Barrett MD | | | 2019 | Encounter | | [address] | | | | | | [place], | | | | | | [place] [address] | | | | | | [phone] | | | | | | | [...]
--- OUTSIDE RECORDS SUMMARY | ~2019-07-18 | XMS | Encounter Summary ---
Demographics + + + | Address | [address] | | | [place] [address] | + + + | Home Phone [...] + | Author | [facility] | | | and [place] | + + + | Organization | [facility] | | | and [...] Team Providers + +------+ + | Care Agriculture Intern Name | Role | Phone | + +------+ + PCP | Unavailable | + +------+ + Encounter Details +--------+ + + + + | Date | Type | Department | Care Team | Description | +--------+ + + + + | 01/01/ | Hospital | [facility] | | | | 2011 | Encounter | MED CTR XRAY [address] | | | | | [address] | | | | | | [place] [address] | | | | | | [phone] | | | +--------+ + + + [...] [address]ARC[place] | | | | | | [place] [address] | | | | | | [phone] | | | | | | | [...] Performed At | + + + | [facility] | [facility] | | [address] [facility] | [facility] | | LOWER EXTREMITY ARTERIAL | DIAG [...] Date/Time: | | | 01/02/2012 13:48 Senior Back End Java Developer: <Electronically Signed | | | by Jared Jauregui MD> 01/03/12 0814 | | + + + + + | Procedure Note | + + | Zak Ortiz - 10/27/2013 7:17 AM [facility] | | Diagnostic Imaging Department | | [address] [facility] | | | | | [...] Transcribed Date/Time: 01/02/2012 13:48 | | Senior Back End Java Developer: | | <Electronically Signed by Jared Jauregui MD> 01/03/12 0814 | + + + +---------+ + + | Performing | Address | City/State/Zipcode | Phone Number | | Organization | | | | + +---------+ + + | [facility] | | | | | [facility] | | | | + +---------+ + + documented in this encounter Visit Diagnoses Not on filedocumented in this encounter"
--- OUTSIDE RECORDS SUMMARY | ~2019-07-18 | XMS | Encounter Summary ---
Demographics + + + | Address | [address] | | | [place] [address] | + + + | Home Phone [...] Team Providers + +------+ + | Care Brazer Crawler Torch Name | Role | Phone | + +------+ + | Litzy Castillo MD | PCP | | + +------+ + Encounter Details +--------+ + + + + | Date | Type | Department | Care Team | Description | +--------+ + + + + | // | Outside | UNKNOWN DEPARTMENT | Other, Faculty | | | 2018 | Records | [address] [facility] | [phone] | | | | | [address] | | | | | | [place], [place] | | | | | | [address] | | | +--------+ + + + [...] | | | | | [address] [place], | | | | | | [place] [address] | | | | | | [phone] | | | | | | | [...]
--- OUTSIDE RECORDS SUMMARY | ~2019-07-18 | XMS | Encounter Summary ---
Demographics + + + | Address | [address] | | | [place] [address] | + + + | Home Phone [...] Team Providers + +------+ + | Care Intellectual Property Paralegal Name | Role | Phone | + [...] | | | | | lumbar | [address] | [address] | | | | | region with | Phone: | Phone: | | | | | neurogenic | [phone] | [phone] | | | | | claudication | Fax: | Fax: | | | | | | [phone] | [phone] | | | | | Radiculopath | | | | | | | y, lumbar | | | | | | | region | | | | | | | Procedures | | | | | | | REQUEST TO | | | | | | | SURGERY | | | | | | | THROUGH OPERATOR | | | | | | | AK EXCIS | | | | | | | INTRASP | | | | | | | LESN,XDURAL, | | | | | | | LUMBAR AK | | | | | | | EXCIS | | | | | | | INTRASP | | | | | | | LESN,INTRADU | | | | | | | R,LUMB AK | | | | | | | BX/EXCIS | | | | | | | SPINAL | | | | | | | TUMOR,XDURAL | | | | | | | ,LUMB AK | | | | | | | BX/EXCIS | | | | | | | SPIN | | | | | | | BALBIR,INDUR,XM | | | | | | | ED,LUMB AK | | | | | | | [...] | | | 2019 | on | [facility] [address] | [address] | | | | | [place] Mailcode: | [address] [facility] | | | | | [facility] | [place] [address] | | | | | and [place], | [phone] | | | | | [place] [address] | | | | | | [place], [place] | | | | | | [address] | | | | | | [phone] | | | +--------+ + + + [...] | | | | [address] [place], | | | | | | [place] [address] | | | | | | [phone] | | | | | | | [...]
--- OUTSIDE RECORDS SUMMARY | ~2019-07-18 | XMS | Encounter Summary ---
Demographics + + + | Address | [address] | | | [place] [address] | + + + | Home Phone | | + + + | Preferred Language | Unknown | + + + | Marital Status | | + + + | Muslim Affiliation | Unknown | + + + [...] Team Providers + +------+ + | Care Photographic Restorer Name | Role | Phone | + +------+ + | Litzy Castillo MD | PCP | | + +------+ + Encounter Details +--------+ + + + + | Date | Type | Department | Care Team | Description | +--------+ + + + + | 08/28/ | Hospital | [facility] | Conversion | Pain | | 2019 | Encounter | CONVERSION DE[address] | Transaction, | | | | [address] | Provider Unknown | | | | | [place], [place] | [phone] | | | | | [address] | | | | | | [phone] | | | +--------+ + + + [...] [address]ARC[address] | | | | | | [place] [address] | | | | | | [phone] | | | | | | | [...]
--- OUTSIDE RECORDS SUMMARY | ~2019-07-18 | XMS | Encounter Summary ---
Demographics + + + | Address | [address] | | | [place] [address] | + + + | Home Phone [...] Team Providers + +------+ + | Care Livestock Sales Representative Name | Role | Phone [...] Treatment Planning | | 2018 | | [facility] [address] | [place] | | | | | [place] Mailcode: | [address] | | | | | [facility] | [place], [place] | | | | | [place], | [address] | | | | | [place] [address] | [phone] | | | | | [place], [place] | | | | | | [address] | | | | | | [phone] | | | +--------+ + + + [...] | | | | | [address] [place], | | | | | | [place] [address] | | | | | | [phone] | | | | | | | | +--------+ + + + + | 06/18/ | Procedure | Surgery | | | | 2019 | Pass | | | | +--------+ + + + + documented as of this encounter Visit Diagnoses Not on filedocumented in this encounter"
--- OUTSIDE RECORDS SUMMARY | ~2019-07-18 | XMS | Encounter Summary ---
Demographics + + + | Address | [address] | | | [place] [address] | + + + | Home Phone | | + + + | Preferred Language | Unknown | + + + | Marital Status | | + + + | Lutheran Affiliation | Unknown | + + + | Race | Unknown | + + + | Ethnic Group | Unknown | + + + Author + + + | Author | [facility] | | | and [place] | + + + | Organization | [facility] | | [...] Team Providers + +------+ + | Care Quality Internship Name | Role | Phone | + [...] pain with | [address] | [place] [address] | | | | | right-sided | [place]AVE[place] | Phone: | | | | | sciatica | [address] | [phone] | | | | | DDD | Phone: | Fax: | | | | | (degenerativ | [phone] | [phone] | | | | | e disc | Fax: | | | | | | disease), | [phone] | | | | | | lumbar [...] | | | n | | [address] | | | | | | [address] | [place] [address] | | | | | | Ave | [address] Phone: | | | | | | [place], | [phone] | | | | | | [place] | Fax: | | | | | | [address] | [phone] | | | | | | Phone: | | | | | | | [phone] | | | | | | | Fax: | | | | | | | [phone] | | +--------+--------+ + + + + Encounter Details +--------+---------+ + + + | Date | Type | Department | Care Team | Description | +--------+---------+ + + + | 03/17/ | Office | [facility] [place] | Bogdanofredericcz, | Chronic right-sided | | 2018 | Visit | PHYSIATRY [address] | [address] | low back pain with | | | | [place], | [address] [place], | right-sided | | | | [place] [address] | [place] [address] | sciatica; DDD | | | | [phone] | [phone] | (degenerative disc | | | | [...] injection targeting spinal stenosis 2) Referral to [facility] neurosurgery 3) Follow up 3 weeks after [...] of blood sugars if you are diabetic. FDC risk can lead to osteoporosis which is [...] the procedure you must provide a medical delivery driver to take you home. For all procedur es it is recommended that someone else drive you home. documented in this encounter Progress Notes Sylvia Mcknight PA-C - 03/17/2018 9:20 AM PDTFormatting of this note might be differe nt from the original. Sylvia Mcknight PA-C [address] [facility], [address] [place] [address] FAX: PHYSICAL MEDICINE AND REHABILITATION [...] for these complaints have included physical therapy, inpatient care manager rn, narcotic medication, anti-inflammatories, steroid injections, and muscle [...] has no apparent deficits with short or detention memory. She has appropriate fund of knowledge [...] PT (multiple sessions over the years) and inpatient care manager rn. Unfortunately she ronny nues to have significant [...] for the steroid injection. 3. Referral to [facility] neurosurgery to surgicla consideration. 4. [...] MARCANO | | | | | | [place] [address] | | | | | | [phone] | | | | | | | | +--------+---------+ + + + + + +--------+ + + | Name | Type | Priori | Associated Diagnoses | Order Schedule | | | | ty | | | + + +--------+ + + | AM[facility] REF[facility] [place] [facility] | Outpatient | Routin | Chronic | [...]
--- OUTSIDE RECORDS SUMMARY | ~2019-07-18 | XMS | Encounter Summary ---
Demographics + + + | Address | [address] | | | [place] [address] | + + + | Home Phone [...] Team Providers + +------+ + | Care Passenger Car Conductor Name | Role | Phone | + [...] | | | [place], [place] | [place] [address] | | | | | [address] | [phone] | | | | | [phone] | | | +--------+ + + + [...] MARCANO | | | | | | [place] [address] | | | | | | [phone] | | | | | | | | +--------+---------+ + + + documented as of this encounter Visit Diagnoses Not on filedocumented in this encounter"
--- OUTSIDE RECORDS SUMMARY | ~2019-07-18 | XMS | Encounter Summary ---
Demographics + + + | Address | [address] | | | [place] [address] | + + + | Home Phone [...] Team Providers + +------+ + | Care Skin Piler Name | Role | Phone | + +------+ + | Litzy Castillo MD | PCP | | + +------+ + Encounter Details +--------+ + + + + | Date | Type | Department | Care Team | Description | +--------+ + + + + | 08/19/ | Telephone | [facility] at | Jarrod Barrett MD | | | 2018 | | [facility] [address] | [address] | | | | | [place] Mailcode: | [address] [place], | | | | | [facility] | [place] [address] | | | | | and [place], | [phone] | | | | | [address] | | | | | | [place], [place] | | | | | | [address] | | | | | | [phone] | | | +--------+ + + + [...] | | | | | Ana Art [facility] | | | | | | [place] [address] | | | | | | [phone] | | | | | | | | +--------+ + + + + | 06/18/ | Procedure | Surgery | | | | 2020 | Pass | | | | +--------+ + + + + documented as of this encounter Visit Diagnoses Not on filedocumented in this encounter"
--- OUTSIDE RECORDS SUMMARY | ~2019-07-18 | XMS | Encounter Summary ---
Demographics + + + | Address | [address] | | | [place] [address] | + + + | Home Phone | | + + + | Preferred Language | Unknown | + + + | Marital Status | Single | + + + | Yazdanism Affiliation | NON | + + + [...] Providers + +------+ + | Care Air Bag Buffer Name | Role | Phone | + [...] | | | | | Procedures | [place], [place] | | | | | | PHYSICAL | [address] | | | | | | THERAPY | Phone: | | | | | | REFERRAL | [phone] | | | | | | | Fax: | | | | | | | [phone] | | + +--------+ + + + [...] | | | | | lumbar | [address] | [address] | | | | | region with | Phone: | Phone: | | | | | neurogenic | [phone] | [phone] | | | | | claudication | Fax: | Fax: | | | | | | [phone] | [phone] | | | | | Radiculopath | | | | | | | y, lumbar | | | | | | | region | | | | | | | Procedures | | | | | | | REQUEST TO | | | | | | | SURGERY | | | | | | | RECHECKER | | | | | | | RI EXCIS | | | | | | | INTRASP | | | | | | | LESN,XDURAL, | | | | | | | LUMBAR RI | | | | | | | EXCIS | | | | | | | INTRASP | | | | | | | LESN,INTRADU | | | | | | | R,LUMB RI | | | | | | | BX/EXCIS | | | | | | | SPINAL | | | | | | | TUMOR,XDURAL | | | | | | | ,LUMB RI | | | | | | | BX/EXCIS | | | | | | | SPIN | | | | | | | BALBIR,INDUR,XM | | | | | | | ED,LUMB RI | | | | | | [...] radiculopathy | | 2019 | Visit | [facility] [address] | SHAYE Beyer | (Primary Dx) | | | | Ave Mailcode: | [address] | | | | | [facility] | [place], [place] | | | | | and [place], | [address] | | | | | [place] [address] | [phone] | | | | | [place], [place] | | | | | | [address] | | | | | | [phone] | | | +--------+---------+ + + + [...] medial facetectomy, Right L 4-5 and Right [id number] and Resection of right L4-5 synovial cyst [...] this plan. SHAYE VALDE[facility] [address] [place] [address] documented in t his encounter Plan of Treatment +--------+ + + + + | Date | Type | Specialty | Care Team | Description | +--------+ + + + + | 06/17/ | Hospital | Adult Acute Care | Jarrod Barrett MD | | | 2019 | Encounter | | [address] | | | | | | [place], | | | | | | [place] [address] | | | | | | [phone] | | | | | | | [...]
--- OUTSIDE RECORDS SUMMARY | ~2019-07-18 | XMS | Encounter Summary ---
Demographics + + + | Address | [address] | | | [place] [address] | + + + | Home Phone [...] Providers + +------+ + | Care Pattern Mechanic Name | Role | Phone | [...] | | | | | radiculopath | [facility] | [facility] | | | | | y | Rd | [address] [place], | | | | | Procedures | [place], [place] | [place] | | | | | EMG/NERVE | [address] | [address] | | | | | CONDUCTION | Phone: | Phone: | | | | | STUDIES - | [phone] | [phone] | | | | | ORTHO | Fax: | Fax: | | | | | | [phone] | [phone] | + +--------+ + + + + Encounter Details +--------+ + + + + | Date | Type | Department | Care Team | Description | +--------+ + + + + | 05/24/ | Lead Custodian | [facility] at | Jarrod Barrett MD | Lumbosacral | | 2017 | | [address] | [address] | radiculopathy | | | | [place] Mailcode: | Ana Art [place], | (Primary Dx) | | | | [facility] | [place] [address] | | | | | and [place], | [phone] | | | | | [address] | | | | | | [place], [place] | | | | | | [address] | | | | | | [phone] | | | +--------+ + + + [...] | | | | | [address] [place], | | | | | | [place] [address] | | | | | | [phone] | | | | | | | [...]
--- OUTSIDE RECORDS SUMMARY | ~2019-07-18 | XMS | Encounter Summary ---
Demographics + + + | Address | [address] | | | [place] [address] | + + + | Home Phone [...] Team Providers + +------+ + | Care Ceramics Test Engineer Name | Role | Phone | [...] pain with | [address] | [place] [address] | | | | | right-sided | [place]AVE[place] | Phone: | | | | | sciatica | [address] | [phone] | | | | | DDD | Phone: | Fax: | | | | | (degenerativ | [phone] | [phone] | | | | | e disc | Fax: | | | | | | disease), | [phone] | | | | | | lumbar [...] | | | n | | [address] | | | | | | [address] | [address] | | | | | | Ave | [address] Phone: | | | | | | [place], | [phone] | | | | | | [place] | Fax: | | | | | | [address] | [phone] | | | | | | Phone: | | | | | | | [phone] | | | | | | | Fax: | | | | | | | [phone] | | +--------+--------+ + + + + Encounter Details +--------+---------+ + + + | Date | Type | Department | Care Team | Description | +--------+---------+ + + + | 03/17/ | Office | [facility] [place] | Bogdanofredericcz, | Chronic right-sided | | 2018 | Visit | PHYSIATRY [address] | [address] | low back pain with | | | | [place], | [address] [place], | right-sided | | | | [place] [address] | [place] [address] | sciatica; DDD | | | | [phone] | [phone] | (degenerative disc | | | | [...] injection targeting spinal stenosis 2) Referral to [facility] neurosurgery 3) Follow up 3 weeks [...] of blood sugars if you are diabetic. detention risk can lead to osteoporosis which is [...] of the procedure you must provide a company truck driver to take you home. For all procedur es it is recommended that someone else drive you home. documented in this encounter Progress Notes Sylvia Mcknight PA-C - 03/17/2018 9:20 AM PDTFormatting of this note might be differe nt from the original. Sylvia Mcknight PA-C [address] [facility] [place], [address] [place] [address] FAX: PHYSICAL MEDICINE AND REHABILITATION [...] for these complaints have included physical therapy, client care coordinator, narcotic medication, anti-inflammatories, steroid injections, and muscle [...] has no apparent deficits with short or longterm memory. She has appropriate fund of knowledge [...] PT (multiple sessions over the years) and client care coordinator. Unfortunately she ronny nues to have significant [...] for the steroid injection. 3. Referral to [facility] neurosurgery to surgicla consideration. 4. Follow [...] MARCANO | | | | | | [place] [address] | | | | | | [phone] | | | | | | | [...]
--- OUTSIDE RECORDS SUMMARY | ~2019-07-18 | XMS | Encounter Summary ---
Demographics + + + | Address | [address] | | | [place] [address] | + + + | Home Phone [...] Providers + +------+ + | Care Fire Sprinkler Service Technician Name | Role | Phone [...] L4-5 LAMINECTOMY; | | 2018 | | [facility] | [address] | | | | | Admitting Desk | Silvia Art [facility] | | | | | [facility] on the | [place] [address] | | | | | floor [address] | [phone] | | | | | [address] | | | | | | [place], [place] | | | | | | [address] | | | +--------+---------+ + + + [...] grossly intact to commands Delt Bi Tri Finance Admin HF KE KF DF PF EHL Left [...] MD Neurosurgery Resident 3:30 PM, 12/14/2018 Pager #[phone] documented in this en counter Plan of Treatment +--------+ + + + + | Date | Type | Specialty | Care Team | Description | +--------+ + + + + | 06/17/ | Hospital | Adult Acute Care | Jarrod Barrett MD | | | 2019 | Encounter | | [address] | | | | | | [address] [place], | | | | | | [place] [address] | | | | | | [phone] | | | | | | | [...] [place] | [address] | [place], [place] | | | ROSIE PIÑA OF CARE | [address] | [address] | | | TESTS | | | | + + + + + PROCEDURE NOTE (12/14/2018 2:52 PM PDT) + + + | Narrative | Performed At | + + + | Jarrod Barrett MD 12/17/2018 10:29 AM Date of Service: | | | 12/14/2018 Attending Surgeon: Jarrod | | | MD Nena French Binder(s): | | | Lilia De La Torre [...] | | 63-year-old female who presented to [facility] with low back | | [...] predicted by the preoperative MRI. Using a Republic and curette, | | | this was [...] | | | | | | y, [facility] | | | | | | [facility] | | | | | | electronic [...] number | | | | | | [id number]. Spine, Right | | | | | [...] | | | | | determined by [facility] | | | | | | laboratories. [...] [place] DEPARTMENT | [address] | [place] [address] | | | PATHOLOGY | [address] [...] [facility] | [address] | [place] [address] | | | SERVICES, CORE | [address] [...] [facility] | [address] | [place] [address] | | | SERVICES, CORE | [address] [...] | + + + + + | [facility] | [address] | [place] [address] | | | SERVICES, | [address] [...] | + + + + + | [facility] | [address] | [place] [address] | | | SERVICES, | [address] [...] 88 | 60 - 99 mg/dL | [facility] - | | | GLUCOSE, | | [...] SMITH | [address] | [place], [place] | | | [place]INT OF CARE | [address] | [address] | | | TESTS | | | [...]
--- OUTSIDE RECORDS SUMMARY | ~2019-07-18 | XMS | Encounter Summary ---
Demographics + + + | Address | [address] | | | [place] [address] | + + + | Home Phone [...] Team Providers + +------+ + | Care Coordinator Mining Products Name | Role | Phone | + +------+ + | Heide Bhatti | PCP | | + +------+ + Encounter Details +--------+ + + + + | Date | Type | Department | Care Team | Description | +--------+ + + + + | 12/03/ | Telephone | Vascular Surgery | Kaveh Izaguirre MD | | | 2011 | | at [facility] 2nd Floor | [address] | | | | | [address] | [address] [place], | | | | | [address] Mailcode: | [place] [address] | | | | | [address] Physician's | [phone] | | | | | [place], | | | | | | [place] [address] | | | | | | [phone] | | | +--------+ + + + [...] | | | | | [address] [place], | | | | | | [place] [address] | | | | | | [phone] | | | | | | | [...] Primary | + + | Atherosclerosis of [place] arteries of the extremities with intermittent claudication | + + documented in this encounter"
[~2019-07-18 16:10] MED LIST: ADVIL LIQUI-GE200 MG PO; AMLODIPINE BESY10 MG PO; ASPIRIN EC325 MG PO; ATENOLOL100 MG PO; ATENOLOL25 MG PO; CLOPIDOGREL75 MG PO; FISH OIL 1,0001 EAC1 PO; FLEXERIL10 MG PO; HYDROCODON-ACE1 EAC3 PO; LEVOTHYROXINE25 MCG PO; MELOXICAM15 MG PO; NICORETTE4 M1 BUCCAL; NORCO 5-325 TA1 EACH PO; PANTOPRAZOLE SO40 MG PO; PLAVIX75 MG PO; PROAIR HFA8.5 GM INH; SIMVASTATIN40 MG PO; SUCRALFATE1 GM PO; VENTOLIN HFA18 GM IH; VENTOLIN HFA18 GM INH; ZONISAMIDE25 MG PO
[2019-07-18] MEDS ORDERED: ROSUVASTATIN CA40 MG PO (16:44)
[2019-07-18] MEDS ORDERED: CLOPIDOGREL75 MG PO (16:44)
--- NOTE | 2019-07-18 21:43 | NUR ---
ADMIT TO RM 122 PER STRETCHER FROM ED. ABLE TO STAND AND PIVOT ON OWN. RATES ABD PAIN 5/10 AND NAUSEA 5/10 BUT WILL FALL ASLEEP EASILY WHEN NOT QUESTIONED. DOES AWAKEN VERY EASILY ABD IS SOFT BUT TENDER TO LIGHT PALP.HAS NS BOLUS THAT WAS HUNG IN ED INFUSING LAC.
--- NOTE | 2019-07-18 21:53 | NUR ---
SIDE RAILS UP X2, CALL LIGHT WITH PT AND PT INSTRUCTED NOT TO GET UP WITHOUT CALLING. IS ASLEEP.
--- NOTE | 2019-07-18 23:53 | NUR ---
PT IS SLEEPING. RESP REG.
--- NOTE | 2019-07-19 01:17 | NUR ---
PT AWAKE, DENIES NEED TO VOID. BLADDER SCANNED FOR 257ML. C/O PAIN INCREASING NOW 04/02, GIVEN 0.5MG DILAUDID IV AND 4MG ZOFRAN FOR NAUSEA.
--- NOTE | 2019-07-19 02:02 | NUR ---
DR GOULD GIVEN UPDATE ON PT NOT VOIDING YET AND AMT BLADDERSCANNED FOR. NO ORDERS RECIEVED.
--- NOTE | 2019-07-19 02:48 | NUR ---
PT FEELING NEED TO VOID AND UP TO BSC FOR ABOUT 10 MIN AND UNABLE TO VOID, BACK TO BED. INC NAUSEA WITH MOVEMENT, GIVEN 5MG REGLAN IV.
--- NOTE | 2019-07-19 03:51 | NUR ---
AWAKENED BY IV PUMP ALARM. DENIES FEELING NEED TO VOID AT THIS TIME. BLADDER SCANNED FOR GRATER THAN 298 ML. PT HAD NO NAUSEA AND TRIED SIP OF APPLE JUICE AND WAS NAUSEATED AFTERWARD.
--- NOTE | 2019-07-19 05:38 | NUR ---
PT UP TO BSC TO HAVE LOOSE STOOL AND VOID SMALL AMT. HAS INC ABD PAIN AND GIVEN 0.5MG DILAUDID IV AT 0510. C.O NAUSEA GIVEN 12.MG PHENERGAN IV. PT UNABLE TO KEEP L ARM STRAIGHT WHERE IV IS IN AC AND FREQ ALARMS. DID NOT ATTEMTP TO START IV UNABLE TO FIND APPROPRIATE VEIN AT THIS TIME.
[2019-07-19] MEDS ORDERED: LEVOTHYROXINE50 MCG PO (09:06)
[2019-07-19] MEDS ORDERED: VALSARTAN160 MG PO (09:06)
[2019-07-19] MEDS ORDERED: ATENOLOL100 MG PO (09:07)
--- NOTE | 2019-07-19 10:15 | NUR ---
In to speak with pt. She is not feeling well. Attempted to discuss plan for safe home discharge. Pt states she has food insecuritys and goes to [facility]' out reach for food. Declines offer to assist with MOW. States she uses [employer]. Tires of conversation and does not want to discuss further. Will visit with her tomorrow.
--- NOTE | 2019-07-19 10:44 | NUR ---
PT RESTING IN BED, RESP EVEN AND NON LABORED. PT APPEARS COMFORTABLE, NO DISTRESS NOTED.
[2019-07-19] MEDS ORDERED: IMODIUM A-D2 M2 PO (12:06)
--- NOTE | 2019-07-19 12:07 | NUR ---
MED REC COMPLETE
--- NOTE | 2019-07-19 12:44 | NUR ---
PT LAYING IN BED ON S SIDE. I COULD TELL IMMEDIATELY SHE WAS NOT FEELING WELL. SHE WAS PLEASANT, BUT HONEST. PT PUT HER PAIN AT A 9. OFFERED PT A PRAYER INGE AND TONY. HAD PRAYER WITH PT. WILL FOLLOW NEEDED
--- NOTE | 2019-07-19 14:30 | NUR ---
PT HAS NO VOIDS SINCE THIS AM. BEDSIDE BLADDER SCAN COMPLETED; 256ML NOTED. PT DENIES SENSATION TO VOID. DR. GOULD AWARE. NO NEW ORDERS AT THIS TIME.
--- NOTE | 2019-07-19 15:09 | NUR ---
PATIENT IN BED COMPLAINING OF 8 OUT OF 10 STOMACH PAIN, RN NOTIFIED. NO OUTPUT AND PATIENT REFUSED TO GET UP DUE TO PAIN, RN NOTIFIED. CALL LIGHT IN REACH, NO FURTHER NEEDS AT THIS TIME.
--- NOTE | 2019-07-19 15:32 | NUR ---
ADMIN ZOFRAN 4MG IVP AND DILAUDID 0.5MG IVP FOR REPORTS OF NAUSEA AND ABD PAIN. PT HAD UNMEASURED VOID WITH MIXED LIQUID STOOL.
--- NOTE | 2019-07-19 17:59 | NUR ---
PT IN BED AT THIS TIME, RESP EVEN AND NON LABORED. PT APPEARS COMFORTABLE, NO S/S OF DISTRESS NOTED. CALL LIGHT WITHIN REACH.
--- NOTE | 2019-07-19 19:09 | NUR ---
REGLAN 5MG IVP ADMIN FOR NAUSEA.
--- NOTE | 2019-07-19 20:14 | NUR ---
RECEIVED REPORT FORM DAY SHIFT RN. PATIENT IS RESTING IN BED. PATIENT HAS COMPLAINTS OF NAUSEA. DAY SHIFT RN. ADMINISTERING PRN NAUSEA PER ORDER. NO FURTHER NEEDS NOTED. CALL LIGHT IN REACH.
--- NOTE | 2019-07-19 20:37 | NUR ---
PATIENT ASSISTED TO THE BSC A SBA. PATIENT WAS ABLE TO VOID. PATIENT IS NOW BACK IN BED RESTING. PATIENT RATES PAIN AT AN 8/10 IN HER ABD. PATIENT GIVEN PRN PAIN MEDICATION PER ORDER. PATIENTS IV INFUSING PER ORDER. VITALS TAKEN AND RECORDED. PATIENTS INTAKE AND OUPUT RECORDED. PATIENT DENIES ANY NAUSEA. PATIENT DENIES ANY NEEDS. CALL LIGHT IN REACH. ASSESMENT COMPLETED.
--- NOTE | 2019-07-19 22:06 | NUR ---
NEW IV STARTED IN RIGH UPPER CHEST PER PATIENT REQUEST. PATIENTS LEFT UPPER ARM NOW SL. PATIENT DENIES ANY PAIN OR NAUSEA. NO FURTHER NEEDS NOTED. CALL LIGHT IN REACH.
--- NOTE | 2019-07-19 22:22 | NUR ---
PATIENT CALLED AND REQUESTED PAIN MEDICATION. PATIENT RATES PAIN AT A 9/10 IN HER ABD. PATIENT GIVEN PRN PAIN MEDICATION PER ORDER. NO FURTHER NEEDS NOTED. CALL LIGHT IN REACH.
--- NOTE | 2019-07-19 23:35 | NUR ---
PATIENT WAS HEARD AT THE RNS STATION MAKING SUCKING NOISES. PATIENT WAS FOUND TO BE SIITING OVER ON THE EDGED AND WAS UNABLE TO SPEAK. PATIENT APPEARED DUSKY MATAMOROS. PATIENT WAS IMMEDIATELY CHECKED AND HER OXYGEN WAS FOUND TO HAVE A SATURATION OF 65%. PATIENT IMMEDITELY PLACED ON 3L VIA OXYMASK. RT IN ROOM TO ADMINISTER NEB. PATIENT SAT UP HIGH IN BED. PLACED CALL TO DR GOULD. RECEIVED NEW VERBAL ORDER VERIFIED USING READBACK METHOD. PATIENT ADMISNISTERED IV LASIX PER ORDER. PATIENTS VITALS TAKEN AND RECORDED. PATIENTS MIGUEL IS COMPLETED AT THIS TIME. PATIENT IS ABLE TO SPEAK IN FULL SENTENCES NOW. PATIENTS RR IS NOW 20. PATIENT DENIES ANY SOB. IT WAS NOTICIED AN REPORTED THAT THE PATIENT NOT ONLY HAS FACIAL SWELLING THAT WAS PRESENT AT THE BEGINNING OF THE SHIFT. PATIENT NOW HAS SWELLING 360 AROUND NECK AND TOP OF COLLAR BONE. PATIENT DENIES ANY PAIN OR NAUSEA. NO FURTHER NEEDS NOTED. CALL LIGHT IN REACH.
--- NOTE | 2019-07-20 00:20 | NUR ---
PATIENT ASSISTED TO THE BSC. PATIENT WAS ONLY ABLE TO VOID A SMALL AMOUNT. PATIENT IS NOW BACK IN BED RESTING. CPOX IN USE. PATIENT REMAINS ON 2L VIA OXYMASK. PATIENT DENIES ANY SOB. PATIENT DENIES ANY NEEDS. VITALS TAKEN AND RECORDED.
--- NOTE | 2019-07-20 00:59 | NUR ---
PATIENT ASSISTED TO THE BSC. PATIENT WAS ABLE TO VOID. PATIENT IS NOW BACK IN BED RESTING. PATIENT DENIES ANY SOB. PATIENT RATES PAIN AT AN 8/10. PATIENT GIVEN PRN PAIN MEDICATION PER ORDER. PATIENT REMAINS ON 2L VIA OXYMASK. NO FURTHER NEEDS NOTED. CALL LIGHT IN REACH.
--- NOTE | 2019-07-20 02:55 | NUR ---
CALL LIGHT ANSWERED. 1 PA TO BEDSIDE COMMODE. PATIENT IS BACK IN BED. BED ALARM ON.
--- NOTE | 2019-07-20 03:02 | NUR ---
PATIENT IS BACK IN BED RESTING AFTER USING THE BSC. PATIENT DENIES ANY SOB. PATIENT DENIES ANY NEEDS. CALL LIGHT IN REACH.
--- NOTE | 2019-07-20 03:35 | NUR ---
PATIENT UP TO BSC WITH SINTA DOCUMENTATION CLERK. PATIENT RATES PAIN AT A 9/10. PATIENT GIVNE PRN PAIN MEDICATION PER ORDER. PATIENT DENIES ANY FURTHER NEEDS. CALL LIGHT IN REACH. VELIA SORIAA REMAINS IN THE ROOM.
--- NOTE | 2019-07-20 03:44 | NUR ---
PATIENT PROVIDED WITH ICE CHIPS. PATIENTS XY MASK REMOVED. PATIENT IS ON RA. OXYGEN SATURATION IS WNL. PATIENT DENIES ANY SOB. PATIENT DENIES ANY FURTHER NEEDS. CALL LIGHT IN REACH.
--- NOTE | 2019-07-20 05:32 | NUR ---
[facility] PATIENT IS ON A CLEAR LIQUID DIET, AND NOTED TO HAVE A DECREASED APPETITE. PATIENT IS A 1PA, PIVOT TRANSFER TO [facility]. PATIENT HAD EPSISODE OF SOB, X1 DOES LASIX AND PRN NEB GIVEN. PATIENT IS ON RA. IV INFUSING PER ORER. PATIENT HAS NOTED FACIAL AND NECK SWELLING, MD AWARE. PATIENT IS AAOX3. PATIENT USES CALL LIGHT APPROPRIATELY. PATIENT RECEIVED PRN PAIN MEDICATION MULTIPLE TIMES. PATIENT RECEIVED PRN NAUSEA MEDICATION X1.
--- NOTE | 2019-07-20 06:23 | NUR ---
PATIENT UP TO THE BSC. PATIENT IS ONLY ABLE TO VOID SCANT AMOUNTS AT A TIME. INTAKE AND OUTOUT RECORDED. PATIENT DENIES ANY NAUSEA. PAIN IS AT A 2/10. PATIENT DENIES THE NEED FOR PAIN MEDICATION AT THIS TIME. PATIENT DENIES ANY FURTHER NEEDS. CALL LIGHT IN REACH.
--- NOTE | 2019-07-20 07:11 | NUR ---
LAB CALLED WITH A CRITICAL LAB VALUE. NOTIFIED. NO NEW ORDERS AT THIS TIME.
--- NOTE | 2019-07-20 07:19 | NUR ---
PT SITTING UPRIGHT IN BED DURING BEDSIDE REPORT, BREATHING EVEN AND UNLABORED. CRITICAL LAB CALLED TO
--- NOTE | 2019-07-20 08:24 | NUR ---
PT RESTLESS C/O PAIN AND SOB RESP 24 SATS 93. DUONEB AND DILAUDID GIVEN DR GOULD CALLED FOR CHANGE OF CONDITION
--- NOTE | 2019-07-20 08:51 | NUR ---
rapid response called for continued decline and increasing symptoms. dr astorga at bedside as well as team. pt transferred to ccu report given
--- NOTE | 2019-07-20 09:07 | NUR ---
RECEIVED PT AFTER RAPID RESPONSE IN M/S THIS AM. PT ON OXY NHI AND THEN PLACED ONTO BIPAP. WHEN PT ARRIVED YOU COULD HEAR STRIDER FROM PT WHILE STANDING AT THE BEDSIDE. PT GIVEN 1 HOUR NEB AT THIS TIME, 80MG SOLMEDRAL IVP GIVEN ALSO AT THIS TIME. PT APPEARRS TO BE COMFORTABLE AT THIS TIME, FOLLOWING DIRECTIONS. ABG RESULTS BACK AT THIS TIME. RT MAKING ADJUSTMENTS ON BIPAP AT THIS TIME.
--- NOTE | 2019-07-20 09:58 | NUR ---
PT GIVEN 2MG MORPHINE AT THIS TIME TO HELP WITH ABD PAIN AND SOB. PT REMAINS ON BIPAP AND APPEARS TO BE RESTLESS. SHE MOVES ABOUT THE BED CHANGING POSITIONS FREQUENTLY. PT COLOR APPEARS TO HAVE INPROVED WITH BIPAP, PT IS PALE AND NOT [place] IN COLOR AT THIS TIME.
--- NOTE | 2019-07-20 10:34 | NUR ---
FOLY CATHETER PLACED AT THIS TIME, LARGE AMOUNT OF URINE RETURNED. SEE I & O'S
--- NOTE | 2019-07-20 10:36 | NUR ---
PT DAUGHTER INTO VISIT WITH PT DR GOULD IN DEPARTMENT AND TALKED WITH HER ALL QUESTIONS ANSWED. PT REPOSITIONED IN BED AFTER CATHETER PLACEMENT.
--- NOTE | 2019-07-20 11:17 | NUR ---
DR GOULD NOTIFIED OF PT C/O SOB. RT PROVIDED NEB TX FOR PT. NO NEW ORDERS.
--- NOTE | 2019-07-20 11:50 | NUR ---
PT VERY RESTLESS HOLDING ONTO HER ABD AND SAYING IT HURTS. LANDY CAME INTO VISIT, BUT PT NOT WANTING ANY AT THIS TIME.
--- NOTE | 2019-07-20 12:00 | NUR ---
PT GIVEN MORPHINE 2MG AT THIS TIME FOR ABD PAIN. DR GOULD AT THE BEDSIDE. 12:45 PT CONTIOUES TO HAVE PAIN AN ADITIONAL 2MG MORPHINE GIVEN. PT CONTIOUES TO HAVEING PAINA ND SPO2 DECREASING, INCREASED RESP DISTRESS NOTED. PT WILL BE INTUBATED PER DR HENDERSON. ABD XRAY DONE AND IT IS NOTED PT HAS POSSIBLE SBO AT THIS TIME. 13:05 MANAGER EMPLOYEE BENEFITS PRESENT AT THIS TIME TALKING WITH DR GOULD. PT HAD 40MLS URINE VIA FAIR AT THIS TIME. 13:14 PT ON BIPAP AT 100% AT THIS TIME, SPO2 100% AT THIS TIME.
--- NOTE | 2019-07-20 13:16 | NUR ---
MEDICATED PER SUB MASTER FOR INTUBATION, 13:17 GLIDE SCOPE USED INTUBATUE, WITH A 6.5 ET TUBE. CO2 + AND BREATH SOUNDS EQUAL AT THIS TIME. TUBE IS 21 AT THE GUM. BAG VALUE MASK INUSE WITH EQUAL RISE AND FALL OF THE CHEST. 250ML LR BOLUS STARTED DUE TO BP 62/37 HEART RATE 110 100% SPO2 ON 100% FIO2. 13:33 OG PLACED BY SUB MASTER CHEST X-RAY CONFERMED PLACEDMENT AFTER PULL TUBE BACE 2 BLACK MARKES. 13:37 STARTED PRESIDEX AT 0.2MCG/KILO/HR IN RIGHT HAND 20G IV SITE 1344 AN ADDITIONAL 250ML/BOULS LR GIVEN 1345 UNABLE TO OBAINT AND ABG AT THIS TIME. DUE TO PT CAP REFILL 10SECONDS AT THIS TIME. ALL EXTERMINIES PLACED IN WARM BLANKETS. SPO2 97% AT THIS TIME, FIO2 100% TV.500 TINSP .90 f 18 AND PEEP 5 FOR VENT SETTINGS 1400 10MLS URINE AT THIS TIME 1402 RESTRAINTS PLACED ON BOTH ARMS TO PROTECT LINES AND TUBES. RASS -2 + 1408 CAP REFILL INPROVED AT THIS TIME 3+ SECONEDS IN ALL EXTREMINIES. 1435 URINE 22MLS. 1455 SPO2 100% AT THIS TIME VENT SETTING UNCAHNGED. CONTIOUE TO TRY TO GET ABG. 1500 DR GE OBTAIN ABG AT THIS TIME LEFT FEMERAL SIDE. WE ARE NOT TO USE RIGHT FEMERAL SIDE DUE TO STENTS PLACEMENT. RESTRACTION BAND PLACED ON RIGHT LEG AT THIS TIME.
--- NOTE | 2019-07-20 14:00 | NUR ---
Attempted to see pt in CCU. Respirations labored and pt is having difficulty breathing. Visit deferred.
--- NOTE | 2019-07-20 15:39 | NUR ---
PT INTUBATED 21 AT THE GUM AT 1317 VERIFYED AT 1332 BY XRAY GOOD PLACEMENT , BS AND ENDTIDAL WERE EQUAL WITH A ENDTIDAL OF 31. PT PLACED ON VENT TUBE SECURED AND CUFF CHECKED PRESSURE REDUCED TO 32 WITHOUT LEAK , PT IN UPRIGHT POSITION PER PROTOCAL . 153 ABG WAS REVIEWED WITH DOCTOR MCGINNIS AND WE INCREASED RATE PER WINTER CALCULATION TO [employer] A ENDTIDAL OF 26. FIO2 WAS DROPPED TO 50% WE WERE UNABLE TO GET GOOD READING OR OBTAIN A ABG RADIALLY , ATTEMPT TIMES THREE WITH SECONDARY RT CONSULT , DR GE OBTAINED FEMORAL ON LEFT SIDE WITHOUT COMPLICATION
--- NOTE | 2019-07-20 16:04 | NUR ---
PT DAUGHTER IS AT THE BEDSIDE AT THIS TIME. DR MCGINNIS INTO SEE PT AT THIS TIME. TALKING WITH DAUGHTER.
--- NOTE | 2019-07-20 16:59 | NUR ---
I was called in at approx 1600 to the CCU for Spirital care to the family of the PT. When I arrived the family, a daughter, had left. I asked the staff if they felt a call to the daughter would be helpful and they thought it would. I called the PT's daughter. We talked for several minutes about her mother and the various stresses the daughter is experiencing. I listened and asked how I could help. She asked me to please pray for her mom and herself. PT's last November. This daughter is local and PT has another daughter and 3 sons not in the area. The daughter, Rosalind, who is local feels overwhelmed to be here alone and is afraid to loose another parent so soon. I let her know that I would be carbon accountant until Thursday and to let the staff know if she needs me.
--- NOTE | 2019-07-20 17:32 | NUR ---
CALL RECEIVED FROM TERRY ALARCON REQUESTING PICC LINE CONSULT. EMR REVIEWED. PATIENT IS PRESENTLY INTUBATED AND HER DAUGHTER, SHLOMO IS AT THE BEDSIDE. SHLOMO PROVIDES INFORMED CONSENT FOR PICC LINE PLACEMENT. 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 LEFT BASILIC VEIN IS NOTED TO BE 7 HUNGARIAN. 4 ATTEMPTS TO ACCESS VEIN MADE. EACH ATTEMPT, ACCESS WAS GAINED. THE CATHETER WOULD NOT ADVANCE AND NEITHER WOULD THE GUIDEWIRE. IT IS NOTED THE PATIENT HAS FEMORAL STENTING ON THE RIGHT SIDE. 18 GAUGE PERIPHERAL IV IS PLACED IN THE LEFT UPPER ARM. IV FLUSHES EASILY WITH 20 ML NS. REPORT GIVEN TO TERRY ALARCON. CLOUD DEVELOPER IS PRESENT IN THE ROOM WITH AGNES.
--- NOTE | 2019-07-20 17:55 | NUR ---
PT REPOSITIONED AT THIS TIME TO HER RIGHT SIDE SOME, PILLOW UNDER LEFT HIP. RESTRAINTS REMOVED AND THEN BACK IN PLACE AFTER POSITION CHANGE. FAIR CONTIOUES TO DRAIN CLOUDY YELLOW IN COLOR URINE. RASS -2 TO -3 AT THIS TIME, BLUE HEEL PROCTORS INPLACE AT THIS TIME, LAB TIBURCIO TO OBTAIN SAMPLE DUE TO PICC NURSE UNABLE TO PLACE A PICC LINE. SHE DID PLACE AN 18G IN THE LEFT SHOULDER.
--- NOTE | 2019-07-20 20:00 | NUR ---
BEDSIDE REPORT RECIEVED FROM RN AGNES AT 1930. PATIENT TAKEN AT THIS TIME TO CT WITH RNS x2, CLINICAL SERVICES MANAGER, AND RESPIRATORY THERAPY. PT BACK IN ROOM AT 1950. SPO2 SHOWING 85 PERCENT ON THE VENT WITH FIO2 AT 50 PERCENT. RESPIRATORY THERAPY INCREASED FIO2 TO 100 PERCENT AT THIS TIME. SATURATIONS AT 99 PERCENT AFTER INCREASE. PT CURRENTLY HAS IV FLUIDS/ PRECIDEX DRIP AND ABX INFUSING. RADIAL PULSE ARE WEAK AND THREADY. PEDAL PULSES PALPABLE. HEART RATE 120-130 AT THIS TIME. PT AT A RASS SCORE OF -3 AT THIS TIME WITH THE PRECIDEX DRIP INFUSING AT 0.2 MG/KG/HR.
--- NOTE | 2019-07-20 21:48 | NUR ---
SPOKE TO DR MCGINNIS ABOUT PT IMAGING AND LAB RESULTS, AND ALSO THE INCREASE IN HEART RATE INTO THE 120-130. NEW ORDERS FOR FLUID CHANGE AND BICARB DRIP RECIEVED. PER DR MCGINNIS, WILL CONTINUE TO MONITOR HEART RATE.
--- NOTE | 2019-07-20 22:10 | NUR ---
PT RESPONSIVE TO VOICE AT THIS TIME. OPENING EYES. SHAKES HEAD NO WHEN ASKED ABOUT PAIN.
--- NOTE | 2019-07-20 22:29 | CONS ---
[facility] [address], [place] [address] Signed DATE OF CONSULTATION: 07/20/2019 CHIEF COMPLAINT: Generalized abdominal pain. HISTORY OF PRESENT ILLNESS: Darcy is a 64-year-old female with a long history of smoking and both coronary artery disease and peripheral arterial disease. She has had one week of nausea, vomiting, diarrhea, anorexia, and dehydration. She seems to have had some diffuse abdominal pain. She has had no fevers. She had been to her primary care provider, but was not feeling any better, so she ended up in the emergency room a couple of days ago. She was admitted to the Internal Medicine Service. She has been undergoing IV fluids and so forth. She seemed to be getting a little worse rather than better. Consequently, she was moved over to ICU and intubated and sedated. In the meantime, the chest x-ray showed some increased opacifications in the lung chacko, so she was started on azithromycin. The initial white count was high at 19,000, it is now 15.9. The initial CT scan did not show any acute intraabdominal pathology. Repeat abdominal x-ray shows some air in several dilated loops of bowel. NG tube now in place. I was asked to see her in consultation. PAST MEDICAL HISTORY: TIA x5, stroke, hypertension, hypothyroidism, alcohol abuse, and history of GI bleed. PAST SURGICAL HISTORY: Includes cholecystectomy, appendectomy, right carotid endarterectomy, left shoulder surgery, tonsillectomy, adenoidectomy, hysterectomy, bilateral tubal ligation, and a right aortofemoral bypass graft. SOCIAL HISTORY: She continues to smoke. She has not drank in about a week, so she was feeling bad. Dr. Litzy Castillo is her primary care provider. She prefers the [facility]. Her daughter is at [phone]. She lives alone and remains a full code. Her friend is Michael Whitten at [phone]. FAMILY HISTORY: Coronary artery disease. REVIEW OF SYSTEMS: Unable to obtain at this time. ALLERGIES: Tetracycline and Vioxx. Electronically Signed By: GRAYSON GE MD 07/20/19 7582 PATIENT NAME: DARCY ALVARADO CONSULTATION DATE OF : 51 REPORT #: [id number] PHYSICIAN: GRAYSON GE MD PCP: LITZY CASTILLO MD REPORT IS CONFIDENTIAL AND NOT TO BE RELEASED WITHOUT AUTHORIZATION [facility] [address], [place] [address] Signed MEDICATIONS: Albuterol, rosuvastatin, Plavix, atenolol, and levothyroxine. PHYSICAL EXAMINATION: VITAL SIGNS: Blood pressure 126/84, heart rate is 83, respiratory rate is 19, temperature is 97.4. She was 90% to 100%. She is 5 feet tall and 52 kg. GENERAL: Darcy is a 64-year-old female, who is now pharmacologically unconscious with the ET tube in place, on the ventilator. LUNGS: Have mild bilateral rhonchi. HEART: Regular rate and rhythm without murmurs. ABDOMEN: Mildly distended, but soft. No masses noted. LABORATORY DATA: Her white blood count was 19, is now 15.9, neutrophils are 65, the bands are 22, they were 34. Hemoglobin is little low at 11. BUN 29, creatinine 1.2, glucose 127. Her albumin is 4.1. Her liver function tests were negative. Her lipase was negative. The calcium, magnesium, and phosphorus were slightly low. Urine showed a little blood, but negative nitrites and leukocyte esterase, maybe a little bacteria, maybe little casts. Her CO2 is 10. She is now on the ventilator. RADIOGRAPHIC STUDIES: A chest x-ray and abdominal x-ray from today show some hyperinflation of lungs, but she has quite a bit of markings in the lower half of both lungs concerning for maybe an atypical type of pneumonia presentation. I went back and looked at her CT scan as well and it shows there are clips in the gallbladder fossa. The appendix is gone. We could see the right aortobifemoral graft. She has peripheral arterial disease. No thickened bowel. No pneumatosis. No abdominal fluid. ASSESSMENT AND PLAN: Darcy is a 64-year-old female, who presents certainly critically ill. Question is whether she could have an atypical pneumonia versus something in the abdomen or both. Difficult to know at this point. She is now on a ventilator with endotracheal tube. She has been started on azithromycin for atypicals. At this point, she remains a full code. We are going to make an effort to contact her daughter and we will proceed from there. Grayson Ge MD ALB/MODL /[id number] Electronically Signed By: GRAYSON GE MD 07/20/19 2229 PATIENT NAME: DARCY ALVARADO CONSULTATION DATE OF : 51 REPORT #: [id number] PHYSICIAN: GRAYSON GE MD PCP: LITZY CASTILLO MD REPORT IS CONFIDENTIAL AND NOT TO BE RELEASED WITHOUT AUTHORIZATION [facility] [address] [place], [place] [address] Signed cc: MD Litzy Paige MD Copies: GRAYSON GE MD ~ Electronically Signed By: GRAYSON GE MD 07/20/19 2229 PATIENT NAME: DARCY ALVARADO CONSULTATION DATE OF : 51 REPORT #: [id number] PHYSICIAN: GRAYSON GE MD PCP: LITZY CASTILLO MD REPORT IS CONFIDENTIAL AND NOT TO BE RELEASED WITHOUT AUTHORIZATION
--- NOTE | 2019-07-20 22:30 | NUR ---
DR GE AND DR MCGINNIS IN TO SEE PATIENT AT THIS TIME. DR GE SPOKE TO PT DAUGHTER AND PLANS ON TAKING HER IN FOR SURGERY AT THIS TIME.
--- NOTE | 2019-07-20 22:45 | NUR ---
FIO2 DECREASED TO 75 PERCENT AT THIS TIME. PT OXYGEN SATURATIONS MAINTAINED AT 99 PERCENT
--- NOTE | 2019-07-20 23:01 | NUR ---
PT RASS SCORE -1. PRECIDEX DRIP INCREASED TO 0.3MCG / MIN. DR MCGINNIS IN TO ASSESS PATIENT. PT WINCING WHEN ABD IS PALPATED.
--- NOTE | 2019-07-20 23:30 | NUR ---
DAUGHTER IN ROOM WITH PATIENT AT THIS TIME.
--- NOTE | 2019-07-20 23:45 | NUR ---
SURGERY TEAM ARRIVED TO TRANSPORT PATIENT TO SURGERY.
--- NOTE | 2019-07-21 01:30 | NUR ---
PT ARRIVED FROM SURGERY BACK TO ROOM AT 0120. ART LINE AND CENTRAL LINE PLACED WHILE PT IN SURGERY. REPORT RECIEVED FROM SURGERY RN, CARE ASSUMED AT THIS TIME. PT PLACED BACK ON PRECIDEX DRIP AT 0.3 MCG/KG/MIN. BLOOD PRESSURES 80/50 SYSTOLICALLY. SATURATIONS 96 PERCENT WITH 75 PERCENT FIO2 ON THE VENT. IV FLUIDS AND BICARB INFUSING.
--- NOTE | 2019-07-21 01:50 | NUR ---
07/21/19 0150 Coretta Richardson 0120: PT ARRIVES TO CCU RM 128 INTUBATED, RAÚL HUSSEIN BAGGING PT. PT PRESENT IN ROOM, ADMINISTERING VENT SETTINGS. [place] PRESENT IN PT RM. VERBAL REPORT FROM RAÚL HUSSEIN GIVEN. ALL RN'S VERBALIZE UNDERSTANDING.
--- NOTE | 2019-07-21 02:03 | NUR ---
CALLED AND UPDATED DR MCGINNIS ON PATIENTS CONDITION POST OPERATIVELY, AND INFORMED HIM OF LOW BLOOD PRESSURES. ORDERS RECIEVED (SEE EMAR).
--- NOTE | 2019-07-21 02:30 | NUR ---
NEOSYNEPHRINE DRIP STARTED AT 40 MCG/MIN.
--- NOTE | 2019-07-21 02:45 | NUR ---
PT AT A RASS OF -4, PERCIDEX DRIP TURNED DOWN TO 0.2 MCG/KG/MIN AT THIS TIME.
--- NOTE | 2019-07-21 03:15 | NUR ---
OG TUBE IRRIGATED WITH 40 CC OF WATER. IMMEDIATE RETURN. PT REPOSITIONED IN BED.
--- NOTE | 2019-07-21 04:20 | NUR ---
DR MCGINNIS NOTIFIED OF DECREASED URINE OUTPUT OVER THE LAST TWO HOURS. NO NEW ORDERS AT THIS TIME.
--- NOTE | 2019-07-21 05:30 | NUR ---
ORAL CARE AND FAIR CATHETER CARE COMPLETED AT THIS TIME. PT REPOSITIONED.
--- NOTE | 2019-07-21 06:34 | NUR ---
LABS DRAWN FROM PT CENTRAL LINE. BROWN PORT NOT PULLING BACK BLOOD WELL. LINE FLUSHED WITH HEPARIN.
--- NOTE | 2019-07-21 06:59 | NUR ---
PT NEOSYNEPHRINE DRIP INCREASED TO 45 MCG/MIN.
--- NOTE | 2019-07-21 07:07 | NUR ---
DR MCGINNIS CALLED ABOUT PTS ONGOING DECREASE IN URINE OUTPUT OVER THE LAST THREE HOURS. ORDERS RECIEVED (SEE EMAR).
--- NOTE | 2019-07-21 08:05 | NUR ---
CENTRAL LINE SITE IS INTACT, FLUIDS INFUSING, NO REDNESS OR SWELLING NOTED. IV SITE IN UPPER LEFT ARM IS INTACT, NO SWELLING OR REDNESS, FLUIDS INFUSING. RESTRAINTS ASSESSED FOR COMFORT AND PT SAFETY. ART LINE IS INTACT, FLUSHES EASILY.
--- NOTE | 2019-07-21 08:08 | OR ---
[facility] [address], [place] [address] Signed DATE OF OPERATION: 07/21/2019 SURGEON: Grayson Ge MD PREOPERATIVE DIAGNOSES: 1. Possible ischemic bowel. 2. Critically ill with lack of peripheral IV access. POSTOPERATIVE DIAGNOSES: 1. Unremarkable small and large bowel. 2. Critically ill with lack of peripheral IV access. PROCEDURES PERFORMED: 1. Diagnostic laparoscopy. 2. Placement of left subclavian triple-lumen catheter. FINDINGS: Darcy had some very mildly turbid ascitic fluid in the abdomen. We ran her colon from the cecum all the way down to the rectum and we ran the entire small bowel from the ileocecal valve all the way back to the ligament of Treitz. It all appeared quite healthy. There were no transition points, no bowel obstruction, really no significant dilation. The bowel looked quite healthy. The small bowel felt just a little boggy. She did have stool in the colon. The appendix of course is gone and I could see her vascular graft and it is well incorporated and her gallbladder is gone. Stomach was unremarkable. We repositioned the NG tube further down in the stomach and her liver actually appeared fine. No lymphadenopathy. ESTIMATED BLOOD LOSS: 30 mL. INDICATIONS: Darcy is a 64-year-old lady with a long history of daily smoking and alcohol use. She has had previous ischemic strokes and a right carotid endarterectomy. She has an right femoral bypass graft. She has had trouble with nausea, vomiting, and what sounds like diarrhea and anorexia with dehydration for about a week or so. She finally came to emergency room for evaluation. She seemed to have diffuse generalized abdominal pain. White count was quite elevated 19,000, but it has gone down each day. Her bands were also quite high and they were also going down. She is just slightly anemic. BUN and creatinine were actually fine. Urine was not particularly concerning. Albumin is good at 4.1. Liver function tests were fine. She had been evaluated in the Electronically Signed By: GRAYSON GE MD 07/21/19 0808 PATIENT NAME: DARCY ALVARADO OPERATIVE REPORT DATE OF : 51 REPORT #: [id number] PHYSICIAN: GRAYSON GE MD PCP: HEATHER SMALLS MD REPORT IS CONFIDENTIAL AND NOT TO BE RELEASED WITHOUT AUTHORIZATION [facility] [address], [place] [address] Signed ER and the CT scan at that time really was quite unremarkable on the 18 of July except for her calcifications, particularly in the proximal abdominal aorta. She had been admitted to the Medical Service. She declined fairly significantly earlier today. Chest x-ray showed what might be some interstitial disease and/or atypical pneumonia, so she was started on azithromycin. Abdominal x-ray showed some mildly dilated loops of small bowel; however, she required intubation and placed on the ventilator. She was quite acidotic with a bicarb of 11 and eventually lactic acid just over 5. We repeated the CT scan and she seemed to have thickened loops of small bowel with fluid as well as the cecum in the right colon, although the transverse and descending colon seemed to be fine. She is on a Precedex drip and it was hard to really know her true abdominal exam. She seemed to be a little distended, a little dull to percussion, but no obvious peritonitis. After a long discussion with our radiologist, our internal medicine physician, and Darcy's daughter, we decided to take her to the operating room for diagnostic laparoscopy. In addition, she is critically ill and we decided she would need a central venous access for ongoing monitoring of blood draws. I explained all this to her daughter in detail. She understands the nature of surgery along with its risks including, but not limited to bleeding, infection, scarring, change in contour of the skin, damage to bowel, possible ostomy, possible anastomotic leaks, incisional hernias, and other unforeseen comorbidities such as blood clots, pulmonary emboli, heart attacks, and even . She also understands placement of central venous catheter including possible infection and/or pneumothorax requiring chest tube placement and catheter embolization requiring retrieval. She had expressed understanding and wished we take her mother to surgery. DESCRIPTION OF PROCEDURE: Darcy was taken to the operating room already intubated on the ventilator. She already had a Barney catheter in place. She was already on triple antibiotics. She already had SCDs in place along with her enoxaparin. She was then prepped and draped in the usual sterile fashion. We utilized her previous midline incision and we entered in without difficulty. We took down some adhesions of the omentum through our previous midline incision. We had a small rent in her omentum and it was easily closed with a running 0 Vicryl suture. We can see that the appendix has gone along with the gallbladder. We ran the colon from the cecum all the way around to the rectum and it was unremarkable. Small bowel was run from the ileocecal valve back to the ligament of Treitz and it was also unremarkable. There was some tbiw-[id number] amount of mildly turbid serous ascitic type fluid in the abdomen. I could see the vascular graft on the right iliac area and it was well incorporated. We did reposition the NG tube in the stomach, so it was more in the distal portion. Her liver looked fine. Really no other issues noted. After this, we placed the small bowel back in the abdomen and covered it with the omentum. We closed the midline fascia with interrupted [id number] #1 PDS sutures. The wound was irrigated and suctioned out until clear. The skin and dermis were then reapproximated with simba and covered with dry gauze and tape. Electronically Signed By: GRAYSON GE MD 07/21/19 0808 PATIENT NAME: DARCY ALVARADO OPERATIVE REPORT DATE OF : 51 REPORT #: [id number] PHYSICIAN: GRAYSON GE MD PCP: HEATHER SMLALS MD REPORT IS CONFIDENTIAL AND NOT TO BE RELEASED WITHOUT AUTHORIZATION [facility] [address] [place] [id number] Signed After this, the entire field was taken down and we proceeded to place a left subclavian triple-lumen catheter. Her entire chest wall and neck were prepped and draped in the usual sterile fashion. The left subclavian vein was found on the 2nd pass of the needle with return of dark venous nonpulsatile blood. The wire was able to feed without any resistance whatsoever. The tract was dilated and the dilator curved in the appropriate direction. The triple-lumen catheter was then inserted and all ports were able to draw and flush quite readily. The catheter was then held in place on the chest wall with interrupted silk sutures. Dressing was applied per nursing staff. After this, our anesthesia provider used the ultrasound to place a left arterial line in her radial artery. She was then left intubated on the ventilator and we took her back to the ICU in critical condition. Grayson Ge MD ALB/MODL /[id number] cc: MD Grayson Alcazar MD Copies: GRAYSON GE MD ~ Electronically Signed By: GRAYSON GE MD 07/21/19 0808 PATIENT NAME: DARCY ALVARADO OPERATIVE REPORT DATE OF : 51 REPORT #: [id number] PHYSICIAN: GRAYSON GE MD PCP: HEATHER SMALLS MD REPORT IS CONFIDENTIAL AND NOT TO BE RELEASED WITHOUT AUTHORIZATION
--- NOTE | 2019-07-21 08:43 | NUR ---
blood sample drawn off art line for abg. site is intact, no redness or swelling noted, flushes easily.
--- NOTE | 2019-07-21 09:52 | NUR ---
NEOSYNEPHRINE TITRATED DOWN TO 40 MCG/MIN. BP 115/68
--- NOTE | 2019-07-21 10:51 | NUR ---
SUSANA-SYNEPHRINE TITRATION PER BEDSIDE ORDER 0952 - TITRATED TO 40 MCG/MIN 1000 - TITRATED DOWN TO 35 MCG/MIN 1009 - TITRATED DOWN TO 30 MCG/MIN 1016 - TITRATED DOWN TO 25 MCG/MIN 1023 - TITRATED DOWN TO 20 MCG/MIN 1029 - TITRATED DOWN TO 15 MCG/MIN 1048 - TITRATE UP TO 20 MCG/MIN DUE TO BP OF 71/51 1055 - TITRATED UP TO 30 MCG/MIN DUE TO BP OF 66/35
--- NOTE | 2019-07-21 11:55 | NUR ---
SUSANA-SYNEPHRINE DIRP TITRATED TO 25 MCG/MIN FOR A BP 86/59
--- NOTE | 2019-07-21 12:35 | NUR ---
RANGE OF MOTION EXERCISES DONE WITH BOTH ARMS AND LEGS. RESTRAINTS ASSESSED FOR BOTH COMFORT AND PT SAFETY. OG TUBE FLUSED WITH 30 ML TAP WATER, NO RESISTANCE NOTED. CENTRAL LINE IS INTACT, NO REDNESS OR SWELLING NOTED, FLUIDS INFUSING. IV SITE IN UPPER LEFT ARM IS INTACT, NO REDNESS OR SWELLING NOTED, FLUIDS INFUSE EASILY.
--- NOTE | 2019-07-21 13:15 | NUR ---
SUSANA-SYPNEPHRINE DRIP TITRATE UP TO 35 MCG/MIN PER BP OF 68/46.
--- NOTE | 2019-07-21 14:29 | NUR ---
NE0-SYNEPHRINE TITRATED TO 30 MCG/MIN PER BP OF 117/59.
--- NOTE | 2019-07-21 15:07 | NUR ---
TITRATED SUSANA-SYNEPHRINE DRIP TO 25 MCG/MIN FOR A BP OF 112/59.
--- NOTE | 2019-07-21 15:15 | NUR ---
PT REPOSTIONED IN BED TO RT SIDE FROM BACK, PROPED WITH PILLOWS FOR SUPPORT UNDER KNEES AND LEFT HIP.
--- NOTE | 2019-07-21 15:30 | NUR ---
PT SUSANA-SYNEPHERINE TITRATED UP TO 35 MCG/MIN FOR BP OF 62/43.
--- NOTE | 2019-07-21 15:55 | NUR ---
CALLED TO UPDATE ON PT LOW BP THAT IS NOT RESPONDING WELL. ORDER GIVEN TO DRAW ADDITIONAL LABS AND CONTINUE TO TITRATE SUSANA DRIP UP TO 100 MCG/MIN.
--- NOTE | 2019-07-21 16:25 | NUR ---
LABS DRAWN FROM [facility].
--- NOTE | 2019-07-21 16:30 | NUR ---
INTRABDOMINAL PRESSURE MEASURED TO BE AT 10-13.
--- NOTE | 2019-07-21 16:48 | NUR ---
SUSANA-SYNEPHRINE DRIP TITRATED UP TO 45 MCG/MIN FOR BP OF 78/56.
--- NOTE | 2019-07-21 18:28 | NUR ---
SUSANA DRIP TITRATION - 1645 DRIP TITRATED UP TO 45 MCG/MIN FOR BP OF 89/55. 1735 DIRP TITRATED DOWN FROM 45 MCG/MIN TO 40 MCG/MIN FOR BP OF 135/79. 1803 DRIP TITRATED DOWN TO 35 MCG/MIN FOR BP OF 132/71. 1815 DRIP TITRATED DOWN TO 30 MCG/MIN FOR BP OF 116/66.
--- NOTE | 2019-07-21 19:30 | NUR ---
BEDSIDE REPORT RECIEVED FROM CCU RN, CARE OF PATIENT ASSUMED AT THIS TIME. INITIAL ASSESSMENT COMPLETED. PT ATTEMPTING TO OPEN EYES, AND MOVING ARM AND LEGS IN BED. PRECEDEX DRIP INCREASED TO 0.5 MCG/KG/MIN TO MAINTAIN A RASS OF -3. IV FLUIDS, AND ABX CONTINUE TO INFUSE AT THIS TIME. VENT SETTINGS REVIEWED WITH RESPIRATORY THERAPY. PT REMAINS ON 50 PERCENT FIO2. SATURATIONS ARE 98 PERCENT ON THE VENT. LUNGS SOUND COARSE THROUGHOUT. BOWEL TONES RARE. MIDLINE DRESSING INTACT, WITH SCANT SEROSANGINOUS DRAINAGE NOTED. PHENYLEPHRINE INFUSING AT 30 MCG/MIN.
--- NOTE | 2019-07-21 20:00 | NUR ---
PT GIVEN .5 MG OF ATIVAN FOR VISIBLE AGGITATION. PT PULLING AT WRIST RESTRAINTS AND EYES ARE TEARING.
--- NOTE | 2019-07-21 20:45 | NUR ---
PT PEEK INSPIRATORY PRESSURE JUMPING UP INTO THE 40'S. PT IS BITING AT THE TUBE AND ATTEMPTING TO COUGH. SUCTIONED PATIENT BUT NO SECRETIONS NOTED. PREDEX DRIP INCREASED TO 0.5 MCG/KG/MIN. PT HAS TEARS COMING OUT OF EYES. RESPONDS TO VOICE WITH MOVEMENT OF HANDS. GIVEN PAIN MEDICATION AT THIS TIME (SEE EMAR).
--- NOTE | 2019-07-21 21:20 | NUR ---
PT RESTING MORE COMFORTABLY AT THIS TIME, AT A RASS OF -3. NO LONGER BITTING DOWN ON ET TUBE.
--- NOTE | 2019-07-21 22:12 | NUR ---
ALTEPLASE HAS DWELLED IN THE AFFECTED PORT FOR 120 MINUTES. NO BLOOD RETURN WHEN ATTEMPTING TO ASPIRATE BLOOD. SECOND DOSE ADMINISERED AT THIS TIME.
--- NOTE | 2019-07-21 23:15 | NUR ---
NEOSYNEPHRINE DRIP TRITRATED DOWN TO 25 MCG/MIN FOR BP OF 1154/65 (87)
--- NOTE | 2019-07-21 23:27 | NUR ---
DR MCGINNIS NOTIFIED OF PATIENTS CONTINUED LOW URINE OUTPUT. NO NEW ORDERS.
--- NOTE | 2019-07-22 00:01 | NUR ---
PT BITTING ON AND OVER BREATHING VENT AT THIS TIME. PULLING ARM AGAINST ARM RESTRAINTS. ATTEMPTS TO OPEN EYES IN RESPONSE TO QUESTIONS. GIVEN PAIN MEDICATION AND PERCEDEX DRIP INCREASED TO 0.6 MCG/KG/MIN AT THIS TIME.
--- NOTE | 2019-07-22 00:20 | NUR ---
INTRA ABDOMINAL PRESSURES 12-15 AT THIS TIME.
--- NOTE | 2019-07-22 00:30 | NUR ---
PT AT A RASS OF -3. NO LONGER PULLING AT WRIST RESTRAINTS. BREATHING WITH THE VENT AT A RATE OF 24. PRECEDEX DRIP DECREASED TO 0.5 MCG/KG/MIN. NEOSYNEPHRINE DRIP TITRATED DOWN TO 20 MCG/MIN.
--- NOTE | 2019-07-22 00:45 | NUR ---
AFTER TXA DWELLING FOR 2 HOURS, NO BLOOD RETURN ON BROWN PORT ON CENTRAL LINE.
--- NOTE | 2019-07-22 01:30 | NUR ---
PT APPEARS TO BE RESTING WITHOUT SIGNS OF DISCOMFORT. HEART RATE 80-90. BLOOD PRESSURES WITHIN PERAMETERS WHILE ON 20 MCG/MIN ON THE NEOSYNEPHRINE DRIP. PRECEDEX REMAINS INFUSING AT .5 MCG/KG/MIN.
--- NOTE | 2019-07-22 04:23 | NUR ---
PT AGAIN PULLING AT WRIST RESTRAINTS, THRASHING LEGS IN BED, AND BITTING DOWN ON ET TUBE. GARGLING NOTED FROM UPPER AIRWAY. SUCTIONED MOUTH. SCANT AMOUNT OF BLOOD FROM OPEN AREA ON GUM LINE NOTED. RESPIRATORY THERAPY IN TO GIVE BREATHING TREATMENT AND MOVE ET TUBE TO THE RIGHT SIDE OF PATIENT MOUTH. PRECEDEX DRIP INCREASED TO 8 MCG/KG/MIN. PRN PAIN MEDICATION ADMINISTERED (SEE EMAR). AT THIS TIME PT STILL OVERBREATHING THE VENT. THIS RN AND RESPIRATORY THERAPY AT BEDSIDE.
--- NOTE | 2019-07-22 04:27 | NUR ---
NEOSYNEPHRINE DRIP INCREASED TO 25 MCG/ MIN FOR BLOOD PRESSURE OF 85/52 (55).
--- NOTE | 2019-07-22 04:37 | NUR ---
PT CONTINUES TO BREATH OVER THE VENT, GRIMACE, AND THRASH ARMS AND LEGS. NOT CONSOLED BY VOICE.
--- NOTE | 2019-07-22 05:15 | NUR ---
RASS -3. PT NO LONGER OVER BREATHING THE VENT. ARMS AND LEGS ARE AT REST. NEOSYNEPHRINE DRIP AT 20 MCG/MIN FOR BLOOD PRESSURE OF 120/66 (77). PRECEDEX DRIP CONTINUES TO INFUSE AT 0.8 MCG/KG/MIN.
--- NOTE | 2019-07-22 06:00 | NUR ---
BLOOD DRAWN FROM CENTRAL LINE AND SENT TO LAB
--- NOTE | 2019-07-22 06:46 | NUR ---
NEOSYNEPHRINE DRIP TITRATED DOWN TO 15 MCG/MIN FOR A BLOOD PRESSURE 102/65 (70).
--- NOTE | 2019-07-22 08:12 | NUR ---
PT APPEARS TO BE RESTING QUIETLY AT THIS TIME, PARMINDER TUBE WELL. NO CHANGES TO VENT SETTINGS, VT 400, CMV, FI02 50%, RATE 2, PEEP 5, PIP 26. RESTRAINTS ASSESSED FOR PT SAFETY AND COMFORT. URINE OUTPUT REMAINS LOW AT 13 ML. MIDLINE INCISION IS INTACT, NO DRAINAGE NOTED, REMOVED DRESSING THIS AM. ART LINE IS INTACT, FLUSHING EASILY. CENTRAL LINE IS INTACT, NO LEAKING NOTED, FLUIDS AND FLUSHES INFUSE EASILY. IV SITE IN UPPER LEFT SHOULDER IS INTACT, NO REDNESS OR SWELLING NOTED, FLUIDS AND FLUSHES INFUSE EASILY.
--- NOTE | 2019-07-22 09:44 | NUR ---
PT FAMILY MEMBERS AT BEDSIDE. ALL QUESTIONS ADDRESSED. PT REMAINS RESTING QUIETLY, PARMINDER TUBE.
--- NOTE | 2019-07-22 10:14 | NUR ---
MORE FAMILY HAS ARRIVED TO BEDSIDE. PT REMAINS TOLERANT OF ET TUBE, RESTING QUIETLY. RESTIRAINTS ASSESSED FOR PT COMFORT AND SAFETY.
--- NOTE | 2019-07-22 10:58 | NUR ---
TITRATED SUSANA-SYNEPHERINE DRIP DOWN TO 10 MCG/MIN. TITRATED PRESIDEX DRIP TO 0.6 MCG/KG/HR. RESP RATE CHANGED TO 22 FROM 24 AND IV FLUIDS OFF AT THIS TIME PER .
--- NOTE | 2019-07-22 12:09 | NUR ---
TITRATED SUSANA DRIP UP TO 15 MCG/MIN FOR BP OF 84/55.
--- NOTE | 2019-07-22 13:45 | NUR ---
AT APPROXIMALTY 1335 PT BECOMES RESTLESS, THRASHING ARMS AND LEGS, BITTING DOWN ON TUBE AND SHAKING HEAD BACK AND FORTH. PT UNABLE TO BE CONSOLED. 1 MG IV ATIVAN AND 25 MCG IV FENTANYL GIVEN FOR DISCOMFORT AND PRESIDEX DRIP TITRATED UP TO 0.8 MCG/KG/HR.
--- NOTE | 2019-07-22 15:38 | NUR ---
PT GIVEN 25 MCG OF IV FENTANYL FOR GENERALIZED DISCOMFORT, PT GRIMACING, ARMS AND LEGS TENSE, HR ELEVATED TO 115.
--- NOTE | 2019-07-22 15:44 | NUR ---
FAMILY AT BEDSIDE TO SAY GOODBYES.
--- NOTE | 2019-07-22 15:45 | NUR ---
Spoke with family in the [place]. Darcy is declining and is on a vent. Family are attempting to see. Family would like pt to go to comfort care and have the vent dcd tomorrow after family arrive. Discussed Polst form and assist family to complete. Took form to Dr. Nunez and he signed for comfort care only, no CPR.
--- NOTE | 2019-07-22 15:53 | NUR ---
PRESIDEX DRIP TITRATED TO 1.2 MCG/KG/HR FOR INCREASED PT AGITATION. SUSANA DRIP TITRATED TO 10 MCG/MIN FOR BP OF 130/67.
--- NOTE | 2019-07-22 16:03 | NUR ---
TITRATED PRESIDEX DIP DOWN 0.7 MCG/KG/MIN.
--- NOTE | 2019-07-22 16:58 | NUR ---
CALLED TO UPDATE TO PT REQUIREMENTS FOR INCREASED PAIN MEDICATION AND ATIVAN FOR INCREASED ANXIETY. ORDER GIVEN TO TITRATE PRESIDEX DRIP UP TO 1.0 MCG/KG/MIN.
--- NOTE | 2019-07-22 17:00 | NUR ---
AFTERNOON ASSESSMENT: PT SHOWS INCREASING AGITATION, ALL CARES EXPLAINED. PT GRIMICES, SHAKES HEAD AND MOVES ARMS AND LEGS TO STIMULATION. MEDICATION GIVEN (SEE MAR). MD NOTIFIED OF INCREASED AGITATION AND MEDICATION. PRECEDEX INCREASED TO 1.0MCG/KG/MIN PER MD ORDER. IN LINE SUCTION PERFORMED. ART LINE ZEROED, ASSESSED, WNL. ABDMOINAL PRESSURE LINE ZEROED, ABD PRESSURE MEASURED AT 14. VENTILATOR SETTINGS: VT-400, FiO2-50%, PEEP-5, RATE-22, PIP-11. PT SHOWS RASS SCORE OF -2. RESTRAINTS IN PLACE WITH 2 FINGERS ABLE TO BE PLACED BENEATH RESTRAINT. PT ALLOWED TO REMAIN IN SAME POSITION FOR COMFORT. BED RAILS UP. PT EASILY VIEWED FROM NURSES STATION.
--- NOTE | 2019-07-22 18:07 | NUR ---
PT RESTING COMFORTABLY. RASS SCORE OF -3. RESTRAINTS IN PLACE WITH 2 FINGERS ABLE EASILY INSERTED BENEATH CUFFS. FAMILY/FRIENDS TO BEDSIDE FOR SHORT VISIT. PTS HR IN 90'S AT THIS TIME.
--- NOTE | 2019-07-22 18:59 | NUR ---
PT RESTING COMFORTABLY ON BACK. RASS SCORE OF -3. PT ALLOWED TO REMAIN ON BACK AT THIS TIME FOR COMFORT. RESTRAINTS IN PLACE WITH 2 FINGERS EASILY PLACED BENEATH CUFFS. PRECEDEX DRIP AT 1 MCG/KG/HR. PHENYLEPHRIN 10MCG/MIN. 270ML RECORDED FROM OG TUBE. NEW CANISTER PLACED. BED RAILS UP. PT EASILY VIEWED FROM NURSES STATION.
--- NOTE | 2019-07-22 19:30 | NUR ---
REPORT RECIEVED. REMAINS ON VENT. TV-400,FIO2-50,PEEP-5,CMV-22,PIP21. WILL RESPOND TO FEW COMMANDS. FAIR CATH PATENT WITH MINIMAL URINE NOTED, CVC TO L SUBCLAVIAN PATENT. NG TO LCS WITH GREEN CONTENTS NOTED. ABD PRESSURE TRANSDUCER ZEROED, ABD PRESSURE-11. ART LINE TO L RADIAL ART WITH GOOD WAVE FORM. ART LINE TRANSDUCER ZEROED. REPOSITIONED. WITH MOVEMENT HR TO 121. WILL CONTINUE TO MONITOR.
--- NOTE | 2019-07-22 20:00 | NUR ---
ASSESSMENT DONE, SUCTIONED FOR MOD AMOUNT OF CLEAR SPUTUM.
--- NOTE | 2019-07-22 21:45 | NUR ---
DR. MCGINNIS UPDATED ON HR. ORDERS RECIEVED TO INCREASE FENTANYL TO 25-50 MCG Q 30 MIN PRN PAIN. FENTANYL 25 MCG IV GIVEN FOR COMFORT.
--- NOTE | 2019-07-22 23:30 | NUR ---
FENTANYL 50 MCG IV GIVEN PRIOR TO REPOSITIONING.
--- NOTE | 2019-07-23 00:15 | NUR ---
ASSESSMENT UNCHANGED. NEOSYNEPHRINE GTT DECREASED TO 7MCG/MIN.
--- NOTE | 2019-07-23 01:00 | NUR ---
REMAINS ON PRECEDEX GTT AT 1 MCG/KG/HR. NEOSYNEPHINE 10 MCG/MIN.
--- NOTE | 2019-07-23 01:30 | NUR ---
REPOSITIONED . NO CHANGES
--- NOTE | 2019-07-23 03:00 | NUR ---
FENTANYL 25 MCG IV GIVEN FOR COMFORT.
--- NOTE | 2019-07-23 04:00 | NUR ---
ASSESSMENT UNCHANGED. FENTANYL 25 MCG IV REPEATED FOR COMFORT.
--- NOTE | 2019-07-23 04:30 | NUR ---
AM CARE GIVE. WILL MOVE LEGS/HEAD/ARMS MINIMALLY AT TIMES.
--- NOTE | 2019-07-23 05:40 | NUR ---
FENTANYL 50 MCG IV GIVEN FOR COMFORT AFTER AM CARES GIVEN. TURNED TO LEFT SIDE. BP HAS BEEN VERY LABILE. NEOSYNEPHINE DRIP HAS BEEN TITRATED ACCORING TO BE. HAS BEEN INFUSING FRON 8-10 MCG/MIN . CURRENTLY SUSANA GTT AT 10 MCG/MIN. ORAL CARE GIVEN. FAIR PATENT, LEFT A LINE WIT GOOD WAVE FORM. HANDS SWOLLEN BILAT L>R. ELEVATED ON PILLOWS. NO CHANGES IN VENT SETTINGS.
--- NOTE | 2019-07-23 09:36 | NUR ---
PT'S FAMILY IN THE ROOM AT THIS TIME, TALKING ABOUT HOW TO PLAN OF REMOVAL OF VENT AT SOME POINT TODAY. THEY ARE ALSO TALKING ABOUT DONOR INQUIRY ALSO.
--- NOTE | 2019-07-23 10:00 | NUR ---
THIS PRESIDENT CALLED DONOR LINE AND IS NOT ABLE TO OBTAIN ORGANS AT THIS TIME.
--- NOTE | 2019-07-23 22:53 | EKG ---
[facility] [address] [facility] [place] [address] Signed Normal sinus rhythm Low voltage QRS Borderline ECG No previous ECGs available Confirmed by DENIA MCGINNIS MD ([id number]) on 07/23/2019 10:52:54 PM Electronically Signed By: DENIA MCGINNIS MD 07/23/19 2253 PATIENT NAME: DOV ALVARADO Electrocardiogram DATE OF : 51 PHYSICIAN: DENIA MCGINNIS MD REPORT #: [id number] REPORT IS CONFIDENTIAL AND NOT TO BE RELEASED WITHOUT AUTHORIZATION
== END 2019-07-23 10:00 | disposition swing bed (61) | DRG 344 ==
LOC: ED 16:10 → MS 16:11 → CCU 07-20 08:42
PROVIDERS: Colon & Rectal Surgery; ADMIT Internal Medicine
PROC: 5A1945Z Respiratory Ventilation, 24-96 Consecutive Hours (ICD-10-PCS; 2019-07-20)
PROC: 0BH17EZ Insertion of Endotracheal Airway into Trachea, Via Natural or Artificial Opening (ICD-10-PCS; principal; 2019-07-20 23:05)
PROC: 0DJD4ZZ Inspection of Lower Intestinal Tract, Percutaneous Endoscopic Approach (ICD-10-PCS; 2019-07-21)
PROC: 02HV33Z Insertion of Infusion Device into Superior Vena Cava, Percutaneous Approach (ICD-10-PCS; 2019-07-21)
DX: K55.059 Acute (reversible) ischemia of intestine, part and extent unspecified (principal); J96.01 Acute respiratory failure with hypoxia; J69.0 Pneumonitis due to inhalation of food and vomit; J96.02 Acute respiratory failure with hypercapnia; E87.2 Acidosis; N17.9 Acute kidney failure, unspecified; E86.0 Dehydration; I25.10 Atherosclerotic heart disease of native coronary artery without angina pectoris; I73.9 Peripheral vascular disease, unspecified; E78.5 Hyperlipidemia, unspecified; E03.9 Hypothyroidism, unspecified; I10 Essential (primary) hypertension; F17.200 Nicotine dependence, unspecified, uncomplicated; J44.9 Chronic obstructive pulmonary disease, unspecified; D64.9 Anemia, unspecified; E83.42 Hypomagnesemia; E83.39 Other disorders of phosphorus metabolism; I95.9 Hypotension, unspecified; Z51.5 Encounter for palliative care; Z88.1 Allergy status to other antibiotic agents; Z88.8 Allergy status to other drugs, medicaments and biological substances; Z86.73 Personal history of transient ischemic attack (TIA), and cerebral infarction without residual deficits; Z79.02 Long term (current) use of antithrombotics/antiplatelets; Z79.899 Other long term (current) drug therapy
CPT/HCPCS: 00790; 31500; 31720; 36415; 36600; 51702; 51798; 71045; 74018; 74176; 74177; 80048; 80053; 80069; 81001; 82570; 82803; 83605; 83690; 83735; 83880; 84100; 84300; 85025; 93005; 93010; 94003; 94640; 94660; 94762; 96361; 96374; 96375; 96376; 99285-25; 99406; C9113; J0330; J0456; J0610; J1170; J1644; J1650; J1815; J1940; J2060; J2250; J2270; J2370; J2405; J2543; J2550; J2704; J2765; J2930; J2997; J3010; J3411; J3420; J3475; J3480; J7030; J7060; J7070; J7120; J7121; P9047; Q9967

== ENCOUNTER 2019-07-23 10:00 | Inpatient (IN) | payer MEDICARE, OTHER, MEDICAID ==
[~2019-07-23] VITALS: Ht 152.4 cm; Wt 53.1 kg
--- OUTSIDE RECORDS SUMMARY | ~2019-07-23 | XMS | Encounter Summary ---
Demographics + + + | Address | [address] | | | [place] [address] | + + + | Home Phone | | + + + | Preferred Language | Unknown | + + + | Marital Status | Single | + + + | Protestant Affiliation | NON | + + + | Race | White | + + + | Ethnic Group | Not or | + + + Author + + + | Author | [facility] | + + + | Organization | [facility] | + + + | Address [...] Team Providers + +------+ + | Care Supervisor Instrument Mechanics Name | Role | Phone | + +------+ + | Litzy Castillo MD | PCP | | + +------+ + Encounter Details +--------+ + + + + | Date | Type | Department | Care Team | Description | +--------+ + + + + | 12/16/ | Business Administration Instructor | [facility] at | Tara Glass | | | 2019 | | [facility] [address] | [place] [address] | | | | | [place] Mailcode: | [address] | | | | | [facility] | [place], [place] | | | | | [place], | [address] | | | | | [place] [address] | [phone] | | | | | [place], [place] | | | | | | [address] | | | | | | [phone] | | | +--------+ + + + [...] | Jarrod Barrett MD | | | 2020 | Encounter | | [address] | | | | | | [place], | | | | | | [place] [address] | | | | | | [phone] | | | | | | | | +--------+ + + + + | 06/18/ | Procedure | Surgery | | | | 2020 | Pass | | | | +--------+ + + + + documented as of this encounter Visit Diagnoses Not on filedocumented in this encounter"
--- OUTSIDE RECORDS SUMMARY | ~2019-07-23 | XMS | Encounter Summary ---
Demographics + + + | Address | [address] | | | [place] [address] | + + + | Home Phone | | + + + | Preferred Language | Unknown | + + + | Marital Status | | + + + | Zoroastrianism Affiliation | Unknown | + + + | Race | Unknown | + + + | Ethnic Group | Unknown | + + + Author + + + | Author | [facility] | | | and [place] | + + + | Organization | [facility] | | | [...] Team Providers + +------+ + | Care Youth Manager Name | Role | Phone | + +------+ + | Litzy Castillo MD | PCP | | + +------+ + Encounter Details +--------+ + + + + | Date | Type | Department | Care Team | Description | +--------+ + + + + | 08/28/ | Hospital | [facility] | Conversion | Pain | | 2019 | Encounter | CONVERSION [address] | Transaction, | | | | | [address] | Provider Unknown | | | | | [place], [place] | [phone] | | | | | [address] | | | | | | [phone] | | | +--------+ + + + [...] [address] | | | | | | [place] [address] | | | | | | [phone] | | | | | | | | +--------+---------+ + + + documented as of this encounter Procedures + +--------+ + + + | Procedure Name | Priori | Date/Time | Associated Diagnosis | Comments | | | ty | | | | + +--------+ + + + | CT HEAD WO CONTRAST | Routin | 02/25/2013 | | Results for this | | | e | 5:04 AM | | procedure are in the | | | | PDT | | results section. | + +--------+ + + + documented in this encounter Results CT Head wo Contrast (02/25/2013 5:04 AM PDT) + + | Specimen | [...]
--- OUTSIDE RECORDS SUMMARY | ~2019-07-23 | XMS | Encounter Summary ---
Demographics + + + | Address | [address] | | | [place] [address] | + + + | Home Phone | | + + + | Preferred Language | Unknown | + + + | Marital Status | Single | + + + | Congregational Affiliation | NON | + + + | Race | White | + + + | Ethnic Group | Not or | + + + Author + + + | Author | [facility] | + + + | Organization | [facility] | + + + | Address [...] Team Providers + +------+ + | Care Reroller Hand Name | Role | Phone | + +------+ + | Unknown | PCP | Unavailable | + +------+ + Reason for Visit + + + | Reason | Comments | + + + | TIA | | + + + | Occlusion of artery | | + + + AUTH/CERT +--------+--------+ + + + + | Status | Reason | Specialty | Diagnoses / | Referred By | Referred To | | | | | Procedures | Contact | Contact | +--------+--------+ + + + + | Closed | | Adult Acute | | | Kpv 11k | | | | Care | | | [facility] | | | | | | | [address] | | | | | | | [place] [address] | | | | | | | [id number] | | | | | | | [facility] | | | | | | | Hospital | | | | | | | [place], [place] | | | | | | | [address] | | | | | | | Phone: | | | | | | | [phone] | | | | | | | Fax: | | | | | | | [phone] | +--------+--------+ + + + + Encounter Details +--------+ + + + + | Date | Type | Department | Care Team | Description | +--------+ + + + + | 11/15/ | Emergency | [facility] Emergency | | | | 2009 - | | Department [address] | | | | 11/16/ | | [facility] | | | | 2009 | | [place], [place] | | | | | | [address] | | | | | | [phone] | | | +--------+ + + + [...] | | | | | [place], | | | | | | [place] [address] | | | | | | [phone] | | | | | | | | +--------+ + + + + | 06/18/ | Procedure | Surgery | | | | 2019 | Pass | | | | +--------+ + + + + documented as of this encounter Visit Diagnoses Not on filedocumented in this encounter"
--- OUTSIDE RECORDS SUMMARY | ~2019-07-23 | XMS | Encounter Summary ---
Demographics + + + | Address | [address] | | | [place] [address] | + + + | Home Phone | | + + + | Preferred Language | Unknown | + + + | Marital Status | Single | + + + | Hinduism Affiliation | NON | + + + | Race | White | + + + | Ethnic Group | Not or | + + + Author + + + | Author | [facility] | + + + | Organization | [facility] | + + + | Address [...] Team Providers + +------+ + | Care Clinical Training Coordinator Name | Role | Phone | + +------+ + | Litzy Castillo MD | PCP | | + +------+ + Encounter Details +--------+ + + + + | Date | Type | Department | Care Team | Description | +--------+ + + + + | 08/19/ | Telephone | [facility] at | Jarrod Barrett MD | | | 2018 | | [facility] [address] | [address] | | | | | [place] Mailcode: | [place], | | | | | [facility] | [place] [address] | | | | | and [place], | [phone] | | | | | [address] | | | | | | [place], [place] | | | | | | [address] | | | | | | [phone] | | | +--------+ + + + [...] | | | | | [address] [facility] | | | | | | [place] [address] | | | | | | [phone] | | | | | | | | +--------+ + + + + | 06/18/ | Procedure | Surgery | | | | 2020 | Pass | | | | +--------+ + + + + documented as of this encounter Visit Diagnoses Not on filedocumented in this encounter"
--- OUTSIDE RECORDS SUMMARY | ~2019-07-23 | XMS | Encounter Summary ---
Demographics + + + | Address | [address] | | | [place] [address] | + + + | Home Phone | | + + + | Preferred Language | Unknown | + + + | Marital Status | Single | + + + | Methodist Affiliation | NON | + + + | Race | White | + + + | Ethnic Group | Not or | + + + Author + + + | Author | [facility] | + + + | Organization | [facility] | + + + | [...] Team Providers + +------+ + | Care Remote Recruiter Name | Role | Phone | + +------+ + | Heide Bhatti | PCP | | + +------+ + Encounter Details +--------+ + + + + | Date | Type | Department | Care Team | Description | +--------+ + + + + | 05/17/ | Hospital | Radiology/Imaging | Jarrod Barrett MD | | | 2018 | Encounter | Lab at [facility] [address] | [address] | | | | | [place] Mailcode: | [place], | | | | | [facility] | [place] [address] | | | | | and [place], | [phone] | | | | | [facility] | | | | | | Floor [place], [place] | | | | | | [address] | | | | | | [phone] | | | +--------+ + + + [...] + + + +---------+ + + | Albuterol 90 | Inhale 1-2 Puffs | | 0 | | | | mcg/Actuation | every four hours as | | | | | | Inhalation Aerosol | needed. | | | | | + + + +---------+ + + | gabapentin 300 mg | 600 mg three times | | 0 | 04/19/20 | | | oral capsule | daily. | | | 18 | | + + + +---------+ + + | ipratropium | Inhale 2 Puffs two | | 0 | | | | (ATROVENT HFA) 17 | times daily. | | | | | | mcg/Actuation | | | | | | | Inhalation HFA | | | | | | | Aerosol Inhaler | | | | | | + + + +---------+ + + | valsartan 80 mg | 80 mg once daily. | | 0 | 02/23/20 | | | oral tablet | | | | 18 | | + + + +---------+ + [...] | | | | | [place], | | | | | | [place] [address] | | | | | | [phone] | | | | | | | [...] | + +--------+ + + + | X-RAY SPINE | Routin | 05/17/2018 | Back pain, | Results for this | | LUMBOSACRAL 2 VIEWS | e | 1:06 PM | unspecified back | procedure are in the | | | | PDT | location, | results section. | | | | | unspecified back | | | | | | pain laterality, | | | | | | unspecified | | | | | | chronicity | | + +--------+ + + + documented in this encounter Results X-RAY SPINE LUMBOSACRAL 2 VIEWS (05/17/2018 1:06 [...] + | Diagnosis | + + | Back pain, unspecified back location, unspecified back pain laterality, unspecified | | chronicity | + + documented in this encounter"
--- OUTSIDE RECORDS SUMMARY | ~2019-07-23 | XMS | Clinical Summary ---
Demographics + + + | Address | [address] | | | [place] [address] | + + + | Home Phone | | + + + | Preferred Language | Unknown | + + + | Marital Status | Single | + + + | Baptist Affiliation | Unknown | + + + | Race | Unknown | + + + | Ethnic Group | Unknown | + + + Author + + + | Author | [facility] (Historical as of | | | 04-09-19) | + + + | Organization | [facility] (Historical as of | | | 04-09-19) | + + + | Address | [...] Team Providers + +------+ + | Care Cook Sauce Name | Role | Phone | + +------+ + | Litzy Castillo MD | PP | | + +------+ + Allergies + + + + + + | Active Allergy | Reactions | Severity | Noted | Comments | | | | | Date | | + + + + + + | Acetaminophen | Rash | Medium | 07/19/20 | | | | | | 18 | | + + + + + + | Celecoxib | Other (See Comments) | Medium | 03/03/20 | Patient could not | | | | | 19 | hold anything down. | | | | | | Patient got severely | | | | | | sick and couldn't | | | | | | eat anything without | | | | | | throwing up. | + + + + + + | Cilostazol | Other (See Comments) | Medium | 12/11/19 | Extreme | | | | | 12 | sleepiness, caused | | | | | | pt to sleep for 20 | | | | | | hours straight. | + + + + + + | Tetracycline | Other (See Comments) | Medium | 07/29/20 | Unconciousness | | | | | 18 | | + + + + + + | Tramadol | Anaphylaxis, Other | High | 07/19/20 | Dry mouth | | | (See Comments) | | 18 | | + + + + + + | Rofecoxib | Nausea and Vomiting | Low | 08/02/20 | | | | | | 18 | | + + + + + + Current Medications + + +--------+---------+------+------+-------+ | Prescription | Sig. | Disp. | Refills | Star | End | Statu | | | | | | t | Date | s | | | | | | Date | | | + + +--------+---------+------+------+-------+ | ALBUTEROL SULFATE | Inhale into the | | | | | Activ | | IN | lungs. | | | | | e | + + +--------+---------+------+------+-------+ | aspirin 81 MG | Take 325 mg by mouth | | | | | Activ | | tablet | daily with | | | | | e | | | breakfast. | | | | | | + + +--------+---------+------+------+-------+ | levothyroxine | Take 50 mcg by mouth | | | | | Activ | | (SYNTHROID) 50 MCG | every morning | | | | | e | | tablet | before breakfast. | | | | | | + + +--------+---------+------+------+-------+ | valsartan (DIOVAN) | Take 80 mg by mouth | | | | | Activ | | 80 MG tablet | daily. | | | | | e | + + +--------+---------+------+------+-------+ | atenolol | Take 100 mg by mouth | | | | | Activ | | (TENORMIN) 100 MG | daily. | | | | | e | | tablet | | | | | | | + + +--------+---------+------+------+-------+ | rosuvastatin | Take 1 tablet by | 90 | 3 | 02/21 | 02/21 | Activ | | (CRESTOR) 40 MG | mouth nightly. | tablet | | / | 12/11 | e | | tablet | | | | 19 | 20 | | + + +--------+---------+------+------+-------+ Active Problems + + + | Problem | Noted Date | + + + | Essential hypertension | 03/03/2019 | + + + | PVD (peripheral vascular disease) (HCC) | 03/03/2019 | + + + | Tobacco dependence | 03/03/2019 | + + + | Alcohol abuse | 03/03/2019 | + + + | Other emphysema (HCC) | 03/03/2019 | + + + | Lumbar herniated disc | 10/08/2018 | + + + | Lumbar radiculitis | 09/23/2018 | + + + | Facet arthritis of lumbar region | 09/23/2018 | + + + | Chronic right-sided low back pain with right-sided sciatica | 03/17/2018 | + + + | DDD (degenerative disc disease), lumbar | 03/17/2018 | + + + | Spinal stenosis of lumbar region with neurogenic claudication | 03/17/2018 | + + + | Synovial cyst of lumbar facet joint | 03/17/2018 | + + + | Claudication, intermittent (HCC) | 05/28/2011 | + + + | TIA (transient ischemic attack) | 05/28/2011 | + + + | S/P carotid endarterectomy | 12/03/2009 | + + + Family History + + +------+ + | Medical History | Relation | Name | Comments | + + +------+ + | Diabetes | Mother | | | + + +------+ + | Hypotension | Mother | | | + + +------+ + | Cancer - Lung | Sister | | | + + +------+ + + +------+ + + | Relation | Name | Status | Comments | + +------+ + + | Father | | | [place] | | | | (Age | | | | | 32) | | + +------+ + + | Mother | | | | + +------+ + + | Sister | | | | + +------+ + + Social History + + + +--------+------+ | Tobacco Use | Types | Packs/Day | Years | Date | | | | | Used | | + + + +--------+------+ | Current Every Day | Cigarettes | | | | | Smoker | | | | | + + + +--------+------+ + +---+---+---+ | Smokeless Tobacco: | | | | | Never Used | | | | + +---+---+---+ + + +---------+ + | Alcohol Use | Drinks/We | oz/Week | Comments | | | ek | | | + + +---------+ + | Yes | | | BEER, everyday. | + + +---------+ + + + + | Sex Assigned at | Date Recorded | | | | + + + | Not on file | | + + + Last Filed Vital Signs + + + + | Vital Sign | Reading | Time Taken | + + + + | Blood Pressure | 150/72 | 03/03/2019 10:01 AM PDT | + + + + | Pulse | 66 | 03/03/2019 10:01 AM PDT | + + + + | Temperature | 36.8 C (98.2 F) | 10/08/2018 1:06 PM PST | + + + + | Respiratory Rate | 16 | 10/08/2018 1:06 PM PST | + + + + | Oxygen Saturation | 97% | 03/03/2019 10:01 AM PDT | + + + + | Inhaled Oxygen | - | - | | Concentration | | | + + + + | Weight | 52.6 kg (116 lb) | 03/03/2019 10:01 AM PDT | + + + + | Height | 152.4 cm (5') | 03/03/2019 10:01 AM PDT | + + + + | Body Mass Index | 22.65 | 03/03/2019 10:01 AM PDT | + + + + Plan of Treatment + + + + + | Health Maintenance | Due Date | Last Done | Comments | + + + + + | Vaccine: | | | | | Dtap/Tdap/Td (1 - | 2 | | | | Tdap) | | | | + + + + + | Breast Cancer | | | | | Screening | 3 | | | | (Mammogram) | | | | + + + + + | Colon Cancer | | | | | Screening | 3 | | | | (Colonoscopy) | | | | + + + + + | Vaccine: Zoster (1 | | | | | of 2) | 3 | | | + + + + + | DEXA SCAN SCREENING | | | | | | 8 | | | + + + + + | Vaccine: | | | | | Pneumococcal 65+ | 8 | | | | Low/Medium Risk (1 | | | | | of 2 - PCV13) | | | | + + + + + | Vaccine: Influenza | | | | | (#1) | 9 | | | + + + + + Results Not on filefrom Last 3 Months Insurance + +--------+ +------+-------+ + | Payer | Benefi | Subscriber | Type | Phone | Address | | | t Plan | ID | | | | | | / | | | | | | | Group | | | | | + +--------+ +------+-------+ + | MEDICARE | MEDICA | [id number] | | | [address] | | | RE | | | | [place] [address] | | | IP-OP | | | | | + +--------+ +------+-------+ + | - WPS - | TRICAR | [id number] | | | [address] [address] | | | [place] | | | | [place] | | | LIFE | | | | [phone] | + +--------+ +------+-------+ + | MEDICAID | MEDICA | [id number] | | | [address] | | | ID | | | | [place], [place] | | | [place] | | | | [address] | + +--------+ +------+-------+ + + +--------+ +--------+ + + | Guarantor Name | Accoun | Relation to | Date | Phone | Billing Address | | | t Type | Patient | of | | | | | | | | | | + +--------+ +--------+ + + | DARCY ALVARADO | Person | Self [birth year] Home: | [address] | | | al/Fam | | 3 | [phone] [address] [place], | | | [place] | | | [address] | [place] [address] | + +--------+ +--------+ + +"
--- OUTSIDE RECORDS SUMMARY | ~2019-07-23 | XMS | Encounter Summary ---
Demographics + + + | Address | [address] | | | [place] [address] | + + + | Home Phone | | + + + | Preferred Language | Unknown | + + + | Marital Status | Single | + + + | Cheondoism Affiliation | NON | + + + | Race | White | + + + | Ethnic Group | Not or | + + + Author + + + | Author | [facility] | + + + | Organization | [facility] | + + + | [...] Team Providers + +------+ + | Care Corporate Strategy Intern Name | Role | Phone | + +------+ + | Litzy Castillo MD | PCP | | + +------+ + Encounter Details +--------+ + + + + | Date | Type | Department | Care Team | Description | +--------+ + + + + | 12/14/ | Pharmacy | Outpatient Retail | | | | 2018 | Visit | [facility] | | | | | | [address] | | | | | | [place], | | | | | | [place] [address] | | | | | | [phone] | | | +--------+ + + + [...] | | | | | [place], | | | | | | [place] [address] | | | | | | [phone] | | | | | | | | +--------+ + + + + | 06/18/ | Procedure | Surgery | | | | 2020 | Pass | | | | +--------+ + + + + documented as of this encounter Visit Diagnoses Not on filedocumented in this encounter"
--- OUTSIDE RECORDS SUMMARY | ~2019-07-23 | XMS | Encounter Summary ---
Demographics + + + | Address | [address] | | | [place] [address] | + + + | Home Phone | | + + + | Preferred Language | Unknown | + + + | Marital Status | | + + + | Religion Affiliation | Unknown | + + + | Race | Unknown | + + + | Ethnic Group | Unknown | + + + Author + + + | Author | [facility] | | | and [place] | + + + | Organization | [facility] | | [...] Team Providers + +------+ + | Care Fine Arts Model Name | Role | Phone | + +------+ + | Litzy Castillo MD | PCP | | + +------+ + Encounter Details +--------+ + + + + | Date | Type | Department | Care Team | Description | +--------+ + + + + | 08/27/ | Hospital | [facility] | Conversion | Diagnosis unknown | | 2019 | Encounter | CONVERSION [address] | Transaction, | | | | [address] | Provider Unknown | | | | | [place], [place] | [phone] | | | | | [address] | | | | | | [phone] | | | +--------+ + + + [...] MARCANO | | | | | | [place] [address] | | | | | | [phone] | | | | | | | | +--------+---------+ + + + documented as of this encounter Procedures + +--------+ + + + | Procedure Name | Priori | Date/Time | Associated Diagnosis | Comments | | | ty | | | | + +--------+ + + + | CT ANGIOGRAM NECK W | Routin | 07/23/2018 | | Results for this | | CONTRAST | e | 5:41 PM | | procedure are in the | | | | PST | | results section. | + +--------+ + + + documented in this encounter Results CT Angiogram Neck w Contrast (07/23/2018 5:41 PM PST) + + | Specimen | + [...] + | Diagnosis | + + | Diagnosis unknown Other unknown and unspecified cause of morbidity or mortality | + + documented in this encounter"
--- OUTSIDE RECORDS SUMMARY | ~2019-07-23 | XMS | Encounter Summary ---
Demographics + + + | Address | [address] | | | [place] [address] | + + + | Home Phone | | + + + | Preferred Language | Unknown | + + + | Marital Status | Single | + + + | Hindu Affiliation | NON | + + + | Race | White | + + + | Ethnic Group | Not or | + + + Author + + + | Author | [facility] | + + + | Organization | [facility] | + + + | Address [...] Team Providers + +------+ + | Care Veneer Stapler Name | Role | Phone | + [...] | | lumbar | [address] | [facility] | | | | | region with | Rd | Rd [place], | | | | | neurogenic | [place], [place] | [place] | | | | | claudication | [address] | [address] | | | | | | Phone: | Phone: | | | | | Radiculopath | [phone] | [phone] | | | | | y, lumbar | Fax: | Fax: | | | | | region | [phone] | [phone] | | | | | Procedures | | | | | | | REQUEST TO | | | | | | | SURGERY | | | | | | | MERRY GO ROUND ATTENDANT | | | | | | | [place] | | | | | | | LAMINEC/FACE | | | | | | | TECT/FORAMIN | | | | | | | ,LUMBAR [place] | | | | | | | LAMINEC/FACE | | | | | | | TECT/FORAMIN | | | | | | | ,EACH ADDNL | | | | | | | [place] | | | | | | | [...] | | | | | y | [facility] | [facility] | | | | | Procedures | Rd | Rd [place], | | | | | EMG/NERVE | [place], [place] | [place] | | | | | CONDUCTION | [address] | [address] | | | | | STUDIES - | Phone: | Phone: | | | | | ORTHO | [phone] | [phone] | | | | | | Fax: | Fax: | | | | | | [phone] | [phone] | +--------+--------+ + + + + Reason [...] | | | | region | [place] [address] | [address] | | | | | | Phone: | Phone: | | | | | | [phone] | [phone] | | | | | | Fax: | Fax: | | | | | | [phone] | [phone] | +--------+--------+ + + + + Encounter Details +--------+---------+ + + + | Date | Type | Department | Care Team | Description | +--------+---------+ + + + | 05/17/ | Office | [facility] | Jarrod Barrett MD | Lumbar radiculopathy | | 2018 | Visit | [facility] [address] | [address] | (Primary Dx); Back | | | | Ave Mailcode: | [address] [place], | pain, unspecified | | | | [place] [facility] | [place] [address] | back location, | | | | and Healing, | [phone] | unspecified back | | | | [address] | | pain laterality, | | | | [place], [place] | | unspecified | | | | [address] | | chronicity; Spinal | | | | [phone] | | stenosis of lumbar | | [...] Barrett MD - 05/17/2018 3:50 PM PDT [facility] Department of Neurological Surgery Referring Provider: SHAYE Wheat [address] [address] Chief Complaint: Patient presents with: New Patient [...] with prior physical therapy. 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 She has not [...] occlusion, left Carotid stenosis, right Claudication, intermittent ([facility]) 05/28/2011 HTN (hypertension) Hyperlipidemia Lumbago PAD (peripheral artery disease) ([facility]) Personal history of tobacco use TIA (transient [...] the report as now presented. Final signature: Setnhil White MD 05/17/2018 1:19 P M Preliminary: [...] evidence of radiculopathy. 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 She has my office number and will call us in the interim with any additional concerns. I spent 45 minutes [id number] with the patient. I spent more than 50% of this visit in co ordination of care and counseling in which we discussed diagnosis, treatment, imaging studie s and follow-up. Jarrod Barrett M.D. [facility] Department of Neurological Surgery [address] [place] [address] documented in this enco unter Plan of Treatment +--------+ + + + + | Date | Type | Specialty | Care Team | Description | +--------+ + + + + | 06/17/ | Hospital | Adult Acute Care | Jarrod Barrett MD | | | 2019 | Encounter | | [address] | | | | | | [place], | | | | | | [place] [address] | | | | | | [phone] | | | | | | | [...] Note | + -+ | Service Account, Genome Res In Interface - 05/17/2018 1:21 PM [...]
--- OUTSIDE RECORDS SUMMARY | ~2019-07-23 | XMS | Encounter Summary ---
Demographics + + + | Address | [address] | | | [place] [address] | + + + | Home Phone | | + + + | Preferred Language | Unknown | + + + | Marital Status | Single | + + + | Adventist Affiliation | NON | + + + [...] Team Providers + +------+ + | Care Flat Drier Name | Role | Phone | + +------+ + | Litzy Castillo MD | PCP | | + +------+ + Encounter Details +--------+ + + + + | Date | Type | Department | Care Team | Description | +--------+ + + + + | 12/14/ | Procedure | 6A Intra Op [facility] | | | | 2019 | Pass | [facility] | | | | | | Admitting Desk | | | | | | Located on the 9th | | | | | | floor [address] [facility] | | | | | | [address] | | | | | | [place], [place] | | | | | | [address] | | | +--------+ + + + [...] | | | | | [address] [place], | | | | | | [place] [address] | | | | | | [phone] | | | | | | | | +--------+ + + + + | 06/18/ | Procedure | Surgery | | | | 2020 | Pass | | | | +--------+ + + + + documented as of this encounter Visit Diagnoses Not on filedocumented in this encounter"
--- OUTSIDE RECORDS SUMMARY | ~2019-07-23 | XMS | Encounter Summary ---
Demographics + + + | Address | [address] | | | [place] [address] | + + + | Home Phone | | + + + | Preferred Language | Unknown | + + + | Marital Status | Single | + + + | Lutheran Affiliation | NON | + + + | Race | White | + + + | Ethnic Group | Not or | + + + Author + + + | Author | [facility] | + + + | Organization | [facility] | + + + | Address | Unknown | + + + | Phone | Unavailable | + + + Support + + +---------+ + | Name | Relationship | Address | Phone | + + +---------+ + | Waleksa Abebe | ECON | Unknown | | + + +---------+ + | Jarad Abebe | ECON | Unknown | | + + +---------+ + | Daniele Whitten | ECON | Unknown | | + + +---------+ + Care Team Providers + +------+ + | Care Financial Reporting Manager Name | Role | Phone | + +------+ + | Heide Bhatti | PCP | | + +------+ + Encounter Details +--------+ + + + + | Date | Type | Department | Care Team | Description | +--------+ + + + + | 01/05/ | Analytics Specialist | Vascular Surgery | Kaveh Izaguirre MD | | | 2011 | | at [facility] [address] Floor | [address] | | | | | [address] | [address] [place], | | | | | [address] Mailcode: | [place] [address] | | | | | [address] Physician's | [phone] | | | | | [place], | | | | | | [place] [address] | | | | | | [phone] | | | +--------+ + + + [...] | | | | | [address] [place], | | | | | | [place] [address] | | | | | | [phone] | | | | | | | | +--------+ + + + + | 06/18/ | Procedure | Surgery | | | | 2020 | Pass | | | | +--------+ + + + + documented as of this encounter Visit Diagnoses Not on filedocumented in this encounter"
--- OUTSIDE RECORDS SUMMARY | ~2019-07-23 | XMS | Clinical Summary ---
Demographics + + + | Address | [address] | | | [place] [address] | + + + | Home Phone | | + + + | Preferred Language | Unknown | + + + | Marital Status | | + + + | Yazidi Affiliation | Unknown | + + + | Race | Unknown | + + + | Ethnic Group | Unknown | + + + Author + + + | Author | [facility] | | | and [place] | + + + | Organization | [facility] | | | [...] Team Providers + +------+ + | Care Occupational Health Rn Name | Role | Phone | + +------+ + | Litzy Castillo MD | PCP | | + +------+ + Allergies + + + + + + | Active Allergy | Reactions | Severity | Noted | Comments | | | | | Date | | + + + + + + | Gabapentin | GI Upset | | 06/09/20 | GI upset with | | | | | 19 | dairy products when | | | | | | taking it | + + + + + + | Rofecoxib | Nausea And Vomiting | | 03/15/20 | | | | | | 18 | | + + + + + + | Tetracyclines & | Other (See Comments) | | 03/15/20 | Reaction not | | Related | | | 18 | specified in outside | | | | | | medical records | + + + + + + | Tramadol | Other (See Comments) | | 07/19/20 | made her dizzy, | | | | | 18 | nauseated, and | | | | | | overly sedated | + + + + + + Medications + + + +---------+------+------+-------+ | Medication | Sig | Dispensed | Refills | Star | End | Statu | | | | | | t | Date | s | | | | | | Date | | | + + + +---------+------+------+-------+ | albuterol 90 | Inhale 2 puffs into | | 0 | | | Activ | | mcg/puff inhaler | the lungs every 4 | | | | | e | | | hours as needed for | | | | | | | | Wheezing or | | | | | | | | Shortness of Breath. | | | | | | + + + +---------+------+------+-------+ | levothyroxine | Take 50 mcg by mouth | | 0 | | | Activ | | (SYNTHROID) 25 mcg | every morning | | | | | e | | tablet | (before breakfast). | | | | | | + + + +---------+------+------+-------+ | valsartan (DIOVAN) | Take 80 mg by mouth | | 0 | | | Activ | | 80 mg tablet | Daily. | | | | | e | + + + +---------+------+------+-------+ | atenolol | Take 100 mg by mouth | | 0 | | | Activ | | (TENORMIN) 50 mg | Daily. | | | | | e | | tablet | | | | | | | + + + +---------+------+------+-------+ | aspirin 81 mg EC | Take 81 mg by mouth | | 0 | | | Activ | | tablet | Daily. | | | | | e | + + + +---------+------+------+-------+ | rosuvastatin | Take 40 mg by mouth | | 0 | | | Activ | | (CRESTOR) 40 MG | nightly. | | | | | e | | tablet | | | | | | | + + + +---------+------+------+-------+ | | Inhale 1 puff into | | 0 | | | Activ | | umeclidinium-vilante | the lungs Daily. | | | | | e | | rol (ANORO ELLIPTA) | | | | | | | | 62.5-25 mcg/puff | | | | | | | | inhaler | | | | | | | + + + +---------+------+------+-------+ | ibuprofen (ADVIL, | Take 200 mg by mouth | | 0 | | | Activ | | MOTRIN) 200 mg | every 6 hours as | | | | | e | | tablet | needed for Pain. | | | | | | + + + +---------+------+------+-------+ Active Problems + + + | Problem | Noted Date | + + + | Peripheral vascular disease | 06/09/2019 | + + + | Carotid occlusion, left | 06/09/2019 | + + + | Mixed hyperlipidemia | 06/09/2019 | + + + | History of TIA (transient ischemic attack) and stroke | 06/09/2019 | + + + | Alcohol abuse | 03/03/2019 | + + + | Essential hypertension | 03/03/2019 | + + + | Other emphysema | 03/03/2019 | + + + | Tobacco dependence | 03/03/2019 | + + + | Lumbar herniated disc | 10/08/2018 | + + + | Chronic right-sided low back pain with right-sided sciatica | 03/17/2018 | + + + | DDD (degenerative disc disease), lumbar | 03/17/2018 | + + + | Spinal stenosis of lumbar regiom - L4/L5, L3/L4 | 03/17/2018 | + + + | Synovial cyst of lumbar facet joint - right L3/L4 | 03/17/2018 | + + + | Claudication, intermittent | 05/28/2011 | + + + | TIA (transient ischemic attack) | 05/28/2011 | + + + | S/P carotid endarterectomy | 12/03/2009 | + + + Encounters +--------+---------+ + + + | Date | Type | Specialty | Care Team | Description | +--------+---------+ + + + | 06/09/ | Office | Cardiology | Christine Ortega | Peripheral vascular | | 2019 | Visit | | CECELIA Sauceda | disease (HCC) | | | | | | (Primary Dx); | | | | | | Essential | | | | | | hypertension; S/P | | | | | | carotid | | | | | | endarterectomy; | | | | | | Carotid occlusion, | | | | | | left; Claudication, | | | | | | intermittent (HCC); | | | | | | Other emphysema | | | | | | (HCC); Tobacco | | | | | | dependence; Alcohol | | | | | | abuse; Mixed | | | | | | hyperlipidemia; | | | | | | History of stroke; | | | | | | History of TIA | | | | | | (transient ischemic | | | | | | attack) and stroke | +--------+---------+ + + + from Last 3 Months Family History + + +------+ + | Medical History | Relation | Name | Comments | + + +------+ + | No known problems | Brother | | | + + +------+ + | No known problems | Brother | | | + + +------+ + | No known problems | Brother | | | + + +------+ + | No known problems | Daughter | | | + + +------+ + | Cancer | Father | | | + + +------+ + | Diabetes | Father | | | + + +------+ + | No known problems | Maternal | | | | | Grandfath | | | | | er | | | + + +------+ + | No known problems | Maternal | | | | | Grandmoth | | | | | er | | | + + +------+ + | Diabetes | Mother | | | + + +------+ + | Stroke | Mother | | | + + +------+ + | Diabetes | Mother | | | + + +------+ + | Hypotension | Mother | | | + + +------+ + | Alzheimer's disease | Other | | | + + +------+ + | No known problems | Paternal | | | | | Grandfath | | | | | er | | | + + +------+ + | No known problems | Paternal | | | | | Grandmoth | | | | | er | | | + + +------+ + | Lung cancer | Sister | | | + + +------+ + | Liver cancer | Sister | | | + + +------+ + | Diabetes | Son | | | + + +------+ + | No known problems | Son | | | + + +------+ + + +------+ + + | Relation | Name | Status | Comments | + +------+ + + | Brother | | | | + +------+ + + | Brother | | | | + +------+ + + | Brother | | | | + +------+ + + | Daughter | | Alive | | + +------+ + + | Father | | | | + +------+ + + | Father | | | [place] | | | | (Age | | | | | 32) | | + +------+ + + | Maternal Grandfather | | | | + +------+ + + | Maternal Grandmother | | | | + +------+ + + | Mother | | | | + +------+ + + | Mother | | | | + +------+ + + | Other | | | | + +------+ + + | Paternal Grandfather | | | | + +------+ + + | Paternal Grandmother | | | | + +------+ + + | Sister | | | | + +------+ + + | Sister | | | | + +------+ + + | Son | | Alive | | + +------+ + + | Son | | Alive | | + +------+ + + Social [...] | | | + +---+---+---+ + + | Tobacco Cessation: Ready to Quit: No | + + + + +---------+ + | Alcohol Use | Drinks/Week | oz/Week | Comments | + + +---------+ + | Yes | 42 Cans of beer | 42.0 | 6 pack of beer | | | | | during course of day | | | | | | + + +---------+ + + + + + | Alcohol Habits | Answer | Date Recorded | + + + + | How often do you have a drink containing | 4 or more times a week | 06/10/2019 | | alcohol? | | | + + + + | How many drinks containing alcohol do you | 5 or 6 | 06/10/2019 | | have on a typical day when you are | | | | drinking? | | | + + + + | How often do you have six or more drinks on | Not asked | | | one occasion? | | | + + + + + + + | Sex Assigned [...] recent travel history available. | + + Last Filed Vital Signs + + + + + | Vital Sign | Reading | Time Taken | Comments | + + + + + | Blood Pressure | 138/78 | 06/09/2019 9:44 AM | | | | | PDT | | + + + + + | Pulse | 64 | 06/09/2019 9:44 AM | | | | | PDT | | + + + + + | Temperature | 36.8 C (98.2 F) | 10/08/2018 1:07 PM | | | | | PST | | + + + + + | Respiratory Rate | 16 | 10/08/2018 1:07 PM | | | | | PST | | + + + + + | Oxygen Saturation | 98% | 06/09/2019 9:44 AM | | | | | PDT | | + + + + + | Inhaled Oxygen | - | - | | | Concentration | | | | + + + + + | Weight | 54.3 kg (119 lb 12.8 | 06/09/2019 9:44 AM | | | | oz) | PDT | | + + + + + | Height | 152.4 cm (5') | 06/09/2019 9:44 AM | | | | | PDT | | + + + + + | Body Mass Index | 23.4 | 06/09/2019 9:44 AM | | | | | PDT | | + + + + + Plan of Treatment +--------+---------+ + + + | Date | Type | Specialty | Care Team | Description | +--------+---------+ + + + | 09/08/ | Office | Cardiology | Christine Ortega | | | 2020 | Visit | | [address] | | | | | | [address] | | | | | | [place] [address] | | | | | | [phone] | | | | | | | | +--------+---------+ + + + + + + + + | Health Maintenance | Due Date | Last Done | Comments | + + + + + | Hepatitis C | | | | | Screening | 3 | | | + + + + + | Vaccine: Zoster (1 | | | | | of 2) | 3 | | | + + + + + | Breast Cancer | | | | | Screening | 8 | | | + + + + + | Lung Cancer | | | | | Screening | 8 | | | + + + + + | Adult Annual | | | | | Wellness Visit | 8 | | | + + + + + | Vaccine: | | | | | Pneumococcal 65+ (1 | 8 | | | | of 2 - PCV13) | | | | + + + + + | Vaccine: Influenza | | | | | (#1) | 9 | | | + + + + + | Colorectal Cancer | | 08/24/2016 | | | Screening | 7 | | | | (Colonoscopy) | | | | + + + + + | Vaccine: | | 04/27/2018 | | | Dtap/Tdap/Td (2 - | 8 | | | | Td) | | | | + + + + + Procedures + +--------+ + + + | Procedure Name | Priori | Date/Time | Associated Diagnosis | Comments | | | ty | | | | + +--------+ + + + | ECG 12 LEAD | Routin | 06/09/2019 | Peripheral | Results for this | | | e | 9:55 AM | vascular disease | procedure are in the | | | | PDT | ([facility]) Essential | results section. | | | | | hypertension S/P | | | | | | carotid | | | | | | endarterectomy | | | | | | Carotid occlusion, | | | | | | left Claudication, | | | | | | intermittent ([facility]) | | | | | | Other emphysema | | | | | | ([facility]) Tobacco | | | | | | dependence Alcohol | | | | | | abuse Mixed | | | | | | hyperlipidemia | | | | | | History of stroke | | + +--------+ + + + from Last 3 Months Results ECG 12 lead (06/09/2019 9:55 AM PDT) + + + + + + | Component | Value | Ref Range | Performed | Pathologist | | | | | At | Signature | + + + + + + | VENTRICULAR | 61 | BPM | [facility] | | | RATE EKG | | | | | + + + + + + | ATRIAL RATE | 61 | BPM | [facility] | | + + + + + + | P-R | 186 | ms | [facility] | | | INTERVAL | | | | | + + + + + + | QRS | 70 | ms | [facility] | | | DURATION | | | | | + + + + + + | Q-T | 394 | ms | [facility] | | | INTERVAL | | | | | + + + + + + | Q-T | 396 | ms | [facility] | | | INTERVAL | | | | | | (CORRECTED) | | | | | + + + + + + | P WAVE AXIS | 78 | degrees | [facility] | | + + + + + + | QRS AXIS | 72 | degrees | [facility] | | + + + + + + | T AXIS | 80 | degrees | [facility] | | + + + + + + | INTERPRETAT | Please refer to | | [facility] | | | ION TEXT | Providers office visit | | | | | | note for Providers | | | | | | Interpretation.Confirmed | | | | | | by [facility] [place] Read Only, | | | | | | [facility] Raj ([id number]), | | | | | | script editor Agustin Michel | | | | | | ([id number]) on 06/09/2019 | | | | | | 10:10:16 AM | | | | + + + + + + + + | Specimen | + + | | + + + + + | Narrative | Performed At | + + + | | | + + + + +---------+ + + | Performing | Address | City/State/Zipcode | Phone Number | | Organization | | | | + +---------+ + + | [facility] | | | | + +---------+ + + from Last 3 Months Insurance + +--------+ +--------+ +---------+--------+ | Payer | Benefi | Subscriber | Effect | Phone | Address | Type | | | t Plan | ID | komal | | | | | | / | | Dates | | | | | | Group | | | | | | + +--------+ +--------+ +---------+--------+ | MEDICARE | MEDICA | [id number] | 01/23/20 | [phone] | | Medica | | | RE | | 09-Pre | 5 | | re | | | PART A | | sent | | | | | | AND B | | | | | | + +--------+ +--------+ +---------+--------+ | MEDICARE | MEDICA | [id number] | 01/23/20 | [phone] | | Medica | | | RE | | 09-Pre | 5 | | re | | | PART A | | sent | | | | | | AND B | | | | | | + +--------+ +--------+ +---------+--------+ | | TRICAR | [id number] | 06/02/ | [phone] | | Indemn | | | E FOR | | 2019-P | 0 | | ity | | | LIFE | | resent | | | | + +--------+ +--------+ +---------+--------+ | [place] | MEDICA | [id number] | 06/02/ | [phone] | | Medica | | | ID [place] | | 2019-P | 2 | | id | | | PLUS | | resent | | | | + +--------+ +--------+ +---------+--------+ + +--------+ +--------+ + + | Guarantor Name | Accoun | Relation to | Date | Phone | Billing Address | | | t Type | Patient | of | | | | | | | | | | + +--------+ +--------+ + + | Darcy Sun | Person | Self [birth year] | [address] | | | al/Fam | | 1955 | [phone] | [address] [place], | | | [place] | | | [address] (Home) | [place] [address] | + +--------+ +--------+ + + | Darcy Sun | Person | Self | [birth year] | [address] | | | al/Fam | | 1955 | [phone] | [address] [place], | | | [place] | | | [address] (Home) | [place] [address] | + +--------+ +--------+ + + Advance Directives + + + + + | Type | Date Recorded | Patient | Explanation | | | | Jet Pilot | | + + + + + | Power of | | | | | Crushed Stone Grader | | | | + + + + + | Advance | | | | | Directive | | | | + + + + +"
--- OUTSIDE RECORDS SUMMARY | ~2019-07-23 | XMS | Encounter Summary ---
Demographics + + + | Address | [address] | | | [place] [address] | + + + | Home Phone | | + + + | Preferred Language | Unknown | + + + | Marital Status | | + + + | Temple Affiliation | Unknown | + + + | Race | Unknown | + + + | Ethnic Group | Unknown | + + + Author + + + | Author | [facility] | | | and [place] | + + + | Organization | [facility] | | | [...] Team Providers + +------+ + | Care Observation Nurse Name | Role | Phone | + +------+ + | Litzy Castillo MD | PCP | | + +------+ + Encounter Details +--------+ + + + + | Date | Type | Department | Care Team | Description | +--------+ + + + + | 08/28/ | Hospital | [facility] | Conversion | Pain | | 2019 | Encounter | [address] | Transaction, | | | | | [address] | Provider Unknown | | | | | [place], [place] | [phone] | | | | | [address] | | | | | | [phone] | | | +--------+ + + + [...] [address] | | | | | | [place] [address] | | | | | | [phone] | | | | | | | | +--------+---------+ + + + documented as of this encounter Procedures + +--------+ + + + | Procedure Name | Priori | Date/Time | Associated Diagnosis | Comments | | | ty | | | | + +--------+ + + + | XR CERVICAL SPINE 4 | Routin | 05/30/2016 | | Results for this | | [place] 5 VWS | e | 5:08 AM | | procedure are in the | | | | PDT | | results section. | + +--------+ + + + documented in this encounter Results XR Cervical Spine 4 or 5 Vws (05/30/2016 5:08 AM PDT) + + | Specimen | [...]
--- OUTSIDE RECORDS SUMMARY | ~2019-07-23 | XMS | Encounter Summary ---
Demographics + + + | Address | [address] | | | [place] [address] | + + + | Home Phone | | + + + | Preferred Language | Unknown | + + + | Marital Status | Single | + + + | Yarsanism Affiliation | NON | + + + | Race | White | + + + | Ethnic Group | Not or | + + + Author + + + | Author | [facility] | + + + | Organization | [facility] | + + + | Address [...] Team Providers + +------+ + | Care Staffing Account Manager Name | Role | Phone | [...] | | | | | Procedures | [place], [place] | | | | | | MRI SPINE | [address] | | | | | | LUMBAR WO | Phone: | | | | | | CONTRAST | [phone] | | | | | | | Fax: | | | | | | | [phone] | | + +--------+ + + + [...] | | | | | Procedures | [place], [place] | | | | | | CONSULT TO | [address] | | | | | | PAIN | Phone: | | | | | | MANAGEMENT | [phone] | | | | | | | Fax: | | | | | | | [phone] | | + +--------+ + + + [...] (new symptoms) | | 2018 | | [facility] [address] | [address] | | | | | [place] Mailcode: | [place], | | | | | [facility] | [place] [address] | | | | | and Healing, | [phone] | | | | | [facility] [address] | | | | | | [place], [place] | | | | | | [address] | | | | | | [phone] | | | +--------+ + + + [...] | | | | | [place], | | | | | | [place] [address] | | | | | | [phone] | | | | | | | [...]
--- OUTSIDE RECORDS SUMMARY | ~2019-07-23 | XMS | Encounter Summary ---
Demographics + + + | Address | [address] | | | [place] [address] | + + + | Home Phone | | + + + | Preferred Language | Unknown | + + + | Marital Status | Single | + + + | Anabaptism Affiliation | NON | + + + | Race | White | + + + | Ethnic Group | Not or | + + + Author + + + | Author | [facility] | + + + | Organization | [facility] | + + + | Address [...] Team Providers + +------+ + | Care Software Clerk Name | Role | Phone | + [...] | | | | | without | [place], [place] | [address] | | | | | mention of | [address] | Physician's | | | | | cerebral | Phone: | Pavilion | | | | | infarction | [phone] | [place], [place] | | | | | Atherosclero | Fax: | [address] | | | | | sis of | [phone] | Phone: | | | | | [place] | | [phone] | | | | | arteries of | | Fax: | | | | | the | | [phone] | | | | | extremities | [...] | 2010 | Encounter | Radiology at [facility] | | | | | | [address] | | | | | | [place] Mailcode: | | | | | | [address] Physician's | | | | | | [place], | | | | | | [place] [address] | | | | | | [phone] | | | +--------+ + + + [...] | | | | | [place], | | | | | | [place] [address] | | | | | | [phone] | | | | | | | [...] of | | | | | | [place] arteries of | | | | | [...] | | | | ANKLE BRACH | [id number] Name: | | | | | INDICS [...] | | | | | PMAccession # [id number] | | | | | | RESULT:LOWER [...] the | | | | | | [id number] arteries | | | | | | [...] infarction | + + | Atherosclerosis of [place] arteries of the extremities with intermittent claudication | + + documented in this encounter"
--- OUTSIDE RECORDS SUMMARY | ~2019-07-23 | XMS | Encounter Summary ---
Demographics + + + | Address | [address] | | | [place] [address] | + + + | Home Phone | | + + + | Preferred Language | Unknown | + + + | Marital Status | Single | + + + | Rastafari Affiliation | NON | + + + | Race | White | + + + | Ethnic Group | Not or | + + + Author + + + | Organization | Unknown | + + + | Address | [...] Team Providers + +------+ + | Care Sizer Machine Name | Role | Phone | + +------+ + | Litzy Castillo MD | PCP | | + +------+ + Encounter Details +--------+--------+ + + + | Date | Type | Department | Care Team | Description | +--------+--------+ + + + | 03/14/ | Travel | | | | | 2019 | | | | | +--------+--------+ + + + Social History + + [...] | | | | | [place], | | | | | | [place] [address] | | | | | | [phone] | | | | | | | | +--------+ + + + + | 06/18/ | Procedure | Surgery | | | | 2019 | Pass | | | | +--------+ + + + + documented as of this encounter Visit Diagnoses Not on filedocumented in this encounter"
--- OUTSIDE RECORDS SUMMARY | ~2019-07-23 | XMS | Encounter Summary ---
Demographics + + + | Address | [address] | | | [place] [address] | + + + | Home Phone | | + + + | Preferred Language | Unknown | + + + | Marital Status | Single | + + + | Restorationist Affiliation | NON | + + + | Race | White | + + + | Ethnic Group | Not or | + + + Author + + + | Author | [facility] | + + + | Organization | [facility] | + + + | [...] Team Providers + +------+ + | Care Surtass Analyst Name | Role | Phone | + +------+ + | Litzy Castillo MD | PCP | | + +------+ + Reason for Visit + + + | Reason | Comments | + + + | Refill Request | corrected rx order | + + + Encounter Details +--------+ + + + + | Date | Type | Department | Care Team | Description | +--------+ + + + + | 12/17/ | Telephone | Neurosurgery at | Jarrod Barrett MD | Refill Request | | 2019 | | [facility] [address] | [address] | (corrected rx order | | | | Ave Mailcode: [address] | [place] [facility], | ) | | | | [facility] | [place] [address] | | | | | and [facility], | [phone] | | | | | [facility] | | | | | | [place], [place] | | | | | | [address] | | | | | | [phone] | | | +--------+ + + + [...] | | | | | [place], | | | | | | [place] [address] | | | | | | [phone] | | | | | | | | +--------+ + + + + | 06/18/ | Procedure | Surgery | | | | 2019 | Pass | | | | +--------+ + + + + documented as of this encounter Visit Diagnoses Not on filedocumented in this encounter"
--- OUTSIDE RECORDS SUMMARY | ~2019-07-23 | XMS | Encounter Summary ---
Demographics + + + | Address | [address] | | | [place] [address] | + + + | Home Phone | | + + + | Preferred Language | Unknown | + + + | Marital Status | Single | + + + | Gnosticism Affiliation | NON | + + + | Race | White | + + + | Ethnic Group | Not or | + + + Author + + + | Author | [facility] | + + + | Organization | [facility] | + + + | Address [...] Team Providers + +------+ + | Care Plate Glass Polisher Name | Role | Phone | + [...] | | | | | ADULT | [place] | | | | | | OPHTHALMOLOG | [address] | | | | | | Y | Phone: | | | | | | | [phone] | | | | | | | Fax: | | | | | | | [phone] | | + +--------+ + + + [...] | | | | | artery | [facility] [place] | | | | | | stenosis, | [address] | | | | | | right | Phone: | | | | | | Procedures | [phone] | | | | | | CTA HEAD AND | Fax: | | | | | | NECK W | [phone] | | | | | | CONTRAST [...] | | | | attack) S/P | [place], [place] | Mailcode: | | | | | carotid | [address] | [address] | | | | | endarterecto | Phone: | [place] | | | | | my | [phone] | Research | | | | | Cerebrovascu | Fax: | [address] | | | | | lar accident | [phone] | floor | | | | | (CVA), | | [place], [place] | | | | | unspecified | | [address] | | | | | mechanism | | Phone: | | | | | ([facility]) | | [phone] | | | | | Procedures | | Fax: | | | | | CONSULT TO | | [phone] | | | | | NEUROLOGY | [...] endarterectomy | | | uled | [facility] | [address] | (Primary Dx); | | | | Rd [place], [place] | [place], [place] | Internal carotid | | | | [address] | [address] | artery stenosis, | | | | [phone] | [phone] | right; Blurred | | | | [...] original. NEUROLOGY TELESTROKE CLINIC INITIAL CONSULT NOTE ([facility]) Author: MARICHUY MINOR MD Reason for Consultation: [...] leg pain which was evaluated by [facility] spine service. Patient states that she was [...] eye vision problems. Has not see n air/ocean export clerk or mill helper for this. It is also unchanged. PMH: No date: Anticoagulated No date: Asthma No date: Blurred vision, right eye No date: Carotid occlusion, left No date: Carotid stenosis, right 05/28/2011: Claudication, intermittent ([facility]) 02/25/2013: CVA (cerebral vascular accident) ([facility]) No date: Double vision Comment: right eye No date: Emphysema lung ([facility]) No date: ETOH abuse No date: HTN (hypertension) No date: Hyperlipidemia No date: ICAO (internal carotid artery occlusion), left No date: Intracranial carotid stenosis No date: Lumbago No date: PAD (peripheral artery disease) ([facility]) No date: Personal history of tobacco use [...] calcified which co uld create a shadow. printing manager bilaterally seen. Right ICA cervical origin widely [...] al antiplatelet therapy at this time, as shelter use has not been shown to be [...] of right ICA stenosis, Will order at [facility] -Ophthalmology consultation, will refer to [facility] as it is local for rona [...] medications and F/U reviewed. Marichuy Minor M.D. Haunted History Tour Guide Vascular Neurology documented in th is encounter Plan of Treatment +--------+ + + + + | Date | Type | Specialty | Care Team | Description | +--------+ + + + + | 06/17/ | Hospital | Adult Acute Care | Jarrod Barrett MD | | | 2019 | Encounter | | [address] | | | | | | [place], | | | | | | [place] [address] | | | | | | [phone] | | | | | | | [...]
--- OUTSIDE RECORDS SUMMARY | ~2019-07-23 | XMS | Encounter Summary ---
Demographics + + + | Address | [address] | | | [place] [address] | + + + | Home Phone | | + + + | Preferred Language | Unknown | + + + | Marital Status | Single | + + + | Bahai Affiliation | NON | + + + | Race | White | + + + | Ethnic Group | Not or | + + + Author + + + | Author | [facility] | + + + | Organization | [facility] | + + + | Address [...] Team Providers + +------+ + | Care Textile Screen Maker Name | Role | Phone | [...] + + + | Closed | | Cardiology | Procedures | Jefe, Karmen, | Car Echo | | | | | | MD [address] | [address] | | | | | TRANSTHORACI | [address]os | [address]os | | | | | C | [address] | [address] | | | | | ECHOCARDIOGR | [place], [place] | Mailcode: | | | | | AM, ADULT | [address] | [id number] | | | | | | Phone: | Harlan Prater | | | | | | [phone] | [facility] | | | | | | Fax: | [place], [place] | | | | | | [phone] | [address] | | | | | | | Phone: | | | | | | | [phone] | +--------+--------+ + + + + Diagnostic Testing (Routine) +--------+--------+ + + + + | Status | Reason | Specialty | Diagnoses / | Referred By | Referred To | | | | | Procedures | Contact | Contact | +--------+--------+ + + + + | Closed | | Radiology | Procedures | Jefe, Karmen, | Rad Ct Scan | | | | | CT CTA | MD [address] | [facility] [address] | | | | | HEAD WITH | Jose Claros | Jose Claros | | | | | CONTRAST | [address] | [address] | | | | | | [place], [place] | Mailcode: | | | | | | [address] | [address] [facility] | | | | | | Phone: | Hospital | | | | | | [phone] | [place], [place] | | | | | | Fax: | [address] | | | | | | [phone] | Phone: | | | | | | | [phone] | | | | | | | Fax: | | | | | | | [phone] | +--------+--------+ + + + + Diagnostic Testing (Routine) +--------+--------+ + + + + | Status | Reason | Specialty | Diagnoses / | Referred By | Referred To | | | | | Procedures | Contact | Contact | +--------+--------+ + + + + | Closed | | | Procedures | Karmen Lange, | [facility]xrad Vasc | | | | | VASC LAB | MD [address] | Lab [address] | | | | | CAROTID | [address] | MA[address] | | | | | DUPLEX | [address] | Harlan Perez | | | | | COMPLETE | [place], [place] | Rd Mailcode: | | | | | BILATERAL | [address] | [id number] | | | | | | Phone: | Physician's | | | | | | [phone] | Pavilion | | | | | | Fax: | [place], [place] | | | | | | [phone] | [address] | | | | | | | Phone: | | | | | | | [phone] | | | | | | | Fax: | | | | | | | [phone] | +--------+--------+ + + + + Reason for Visit AUTH/CERT +--------+--------+ + [...] | | | | | | | [facility] | | | | | | | Hospital | | | | | | | [facility] [place] | | | | | | | [address] | | | | | | | Phone: | | | | | | | [phone] | | | | | | | Fax: | | | | | | | [phone] | +--------+--------+ + + + + Encounter Details +--------+ + + + + | Date | Type | Department | Care Team | Description | +--------+ + + + + | 11/16/ | Hospital | [facility] [address] | Emi Arroyo MD | | | 2009 - | Encounter | [address] | [address] | | | | | [id number] [facility] | [address] [place], | | | 11/21/ | | HOSPITAL [place], | [place] [address] | | | 2009 | | [place] [address] | [phone] | | | | | [phone] | | | | | | | Tru Barroso MD | | | | | | [address] | | | | | | [address] [place], | | | | | | [place] [address] | | | | | | [phone] | | | | | | | [...] + + + | Blood Pressure | 97/49 | 11/21/2009 10:00 AM | | | | | PDT | | + + + + + | Pulse | 64 | 11/21/2009 10:00 AM | | | | | PDT | | + + + + + | Temperature | 36.8 C (98.2 F) | 11/21/2009 4:00 AM | | | | | PDT | | + + + + + | Respiratory Rate | 20 | 11/21/2009 10:00 AM | | | | | PDT | | + + + + + | Oxygen Saturation | 92% | 11/21/2009 10:00 AM | | | | | PDT | | + + + + + | Inhaled Oxygen | - | - | | | Concentration | | | | + + + + + | Weight | 71.7 kg (158 lb 1.1 | 11/20/2009 4:30 PM | | | | oz) | PDT | | + + + + + | Height | 152.4 cm (5') | 11/20/2009 4:30 PM | | | | | PDT | | + + + + + | Body Mass Index | 30.87 | 11/20/2009 4:30 PM | | | | | PDT | | + + + + + documented in this encounter Discharge Summaries Christa Herrera, INOCULATOR - 11/21/2009 11:56 AM PDTFormatting of this note might be different f rom the original. INPATIENT PHYSICIAN DISCHARGE SUMMARY VASCULAR SURGERY Attending Physician: Tru Barroso MD PCP: Unknown Admission Date: 11/16/2009 Discharge Date: 11/21/2009 Diagnoses Prinicipal Final Diagnosis 1. Right Carotid Artery Stenosis Additional Diagnoses Past Medical History: HTN (HYPERTENSION) HYPERLIPIDEMIA ASTHMA CAROTID OCCLUSION, LEFT CAROTID STENOSIS, RIGHT TIA (TRANSIENT ISCHEMIC ATTACK) PERSONAL HISTORY OF TOBACCO USE LUMBAGO PAD (PERIPHERAL ARTERY DISEASE) Past Surgical History Procedure Date Right aorto-femoral bypass 2000 Left rotator cuff repair 2008 Hx hysterectomy Hx appendectomy Right knee arthroscopy Hx tonsillectomy Procedures 1. Right carotid endarterectomy with patch 11-20-09 Reason For Admission: Right Carotid Artery Stenosis; hx of new Transient Ischemic Attack Hospital Course: Ms. Sun is a 54 year old female who on 11-15-09 at 0430 had sudden onset face and arm numbne ss that lasted for approximately 30 minutes. There was a 3 minute recurrence of these symptoms shortly thereafter. Her speec h was affected, however she did not have Symptoms in her arms or in her legs. She had never had these symptoms in the past. She soug ht out medical care at [facility] and a carotid ultrasound demonstrated A 50-70% stenosis of the right internal carotid artery, there is occlusion of the left internal carotid artery. There was a greater than 50% reduction in both external carotid arteries. She was transfer red to [facility] and admitted on 11-16-09. [facility] Neuro-Stroke consult was obtained and CTA of Head and Neck which showed high grade jessi nosis of Right ICA, and total occlusion of Left ICA. Transthoracic Echocardiogram was completed. She was started on a daily aspirin. She was obs erved over the weekend and had no further symptoms. She underwent Right Carotid endarectomy with patch on 11-20-09. Postoperative she was monito red in the ICU for complication, but she was stable. She did c/o of left eye blurriness and a "floater" at times postop, which she reported to jaspreet yeboah in past. She was discharge home on 11-21-09 in good condition on aspirin 81mg daily. She was given prescription for nicotine pa tches and advised remain smoke free. Allergies Allergen Reactions Tetracycline (Bulk) Vioxx (Rofecoxib) START taking these medications aspirin 325 mg Oral Tablet Take 1 Tab by mouth once daily. Qty: 30 Each Refills: 6 hydrocodone-acetaminophen 5-500 mg Oral Tablet Take 1-2 Tabs by mouth every four hours as needed for moderate pain. Not to exceed 8 table ts per any 24 hour period. (Not to exceed 4000 mg of acetaminophen from all products per 24 hour period.) Qty: 120 Tab Refills: 0 nicotine 14 mg/24 hr Transdermal Patch 24 hr Apply 1 Patch to skin once daily. Qty: 14 Patch Refills: 0 CONTINUE these medications which have NOT CHANGED Albuterol 90 mcg/Actuation Inhalation Aerosol Inhale 1-2 Puffs every four hours as needed. aspirin chewable 81 mg Oral Tablet, Chewable Take 81 mg by mouth once daily. atenolol 50 mg Oral Tablet Take 50 mg by mouth two times daily. ezetimibe-simvastatin (VYTORIN 10/20) 10-20 mg Oral Tablet Take 1 Tab by mouth once daily in the evening. ipratropium (ATROVENT HFA) 17 mcg/Actuation Inhalation HFA Aerosol Inhaler Inhale 2 Puffs two times daily. meloxicam 7.5 mg Oral Tablet Take 7.5 mg by mouth two times daily. Wound Care Monitor Right neck incision for signs of infection such as swelling, redness or drainage, o r fever > 100.5. Call [facility] Vascular Surgery clinic if there are signs of infection Diet Regular Activity Restrictions: Activity level at discharge Up unrestricted HOB Position 30 Degrees Driving Restrictions No Driving until off pain meds Bathing Restrictions Shower is okay, keep wound open to air Destination: Destination: Home Condition on Discharge Good Discharge Follow Up Provider and Clinic: [facility] V[facility] Surgery Clinic [address], [phone] Appointment: Call to make an appointment in 2 weeks Other Discharge Orders and Instructions Recommend continued smoking cessation, use Nicotine patches and followup with [facility]CP [facility] assistance to stay smoke free. CECELIA MCNEAL [place] [id number] [id number] [facility] [address] Discharging Physician: CECELIA MCNEAL Attending Physician: Tru Barroso MD documented in this encounter Discharge Instructions Instructions Carol Ware - 11/17/2009Formatting of this note might be different from the seema ginal. Stroke (Cerebrovascular Accident) You have been diagnosed by your caregiver as having a stroke. It is caused by a decrease of the oxygen supply to an area of your brain. It is usually the result of a small blood clot or hardening of the arteries. A stroke is a neurologic (brain) condition that can cause some permanent loss of function of the central nervous system (brain). If the symptoms (problems ) of a stroke end without complications in twenty four hours, it is diagnosed as a transient ischemic attack (TIA). If this does not resolve within that time period, it is defined as a stroke. Symptoms from a stroke often improve with therapy and training. symptoms A loss of vision. Numbness on one side. Inability to speak (aphasia). Isolated areas of weakness. Confusion. Depending upon your symptoms, you may require further evaluation by your caregiver. Appropr iate treatment and lifestyle changes may be recommended. Hospitalization or custodial car e is decided upon an individual basis by your caregiver. Treatment and therapy are personali zed to the signs and symptoms. Take all medications as suggested. Consult your caregiver bef ore adding over the counter medications. We cannot change our family history. It is important to change the risk factors that we are able. Risk factors you can control include: Hypertension. Blood lipids (cholesterol and triglycerides). Heart problems if these are adding to risk. Stop smoking. This is a grave risk factor. Stop oral contraceptives if currently used unless your caregiver recommends otherwise. seek immediate medical attention if: There are any problems or concerns or the original symptoms that brought you in are getting worse. ExitCare Patient Information 2006 [employer]. INPATIENT NURSE ORDER FOR DISCHARGE AND INTERDISCIPLINARY INSTRUCTIONS DISCHARGE DATE: 11/21/2009 PATIENT EDUCATION: Patient given the following printed education materials CVA Review with patient/family: Understanding of disease/injury/surgical repair Yes Signs/symptoms that they should report Yes Understanding of medications and side effects Yes Activity and diet instructions Yes Follow-up appointments Yes Any concerns/fears N/A Smoking Cessation Counseling/Information was given on admission. Additional Instructions: (ex: daily weights, wound care, tube feeding, trach care, CBG laura toring etc.) No Personal Effects/Medications: Sent home with patient Discharged Via: Ambulatory Mode of Transportation: Car Accompanied by: Family/Responsible [employer] Name: (when applicable) Phone #: Discharge Nurse: Carol Ware Date: 11/21/2009 Discharge Time: 11:06 AM AttachmentsThe following attachments cannot be sent through Care Everywhere.Adult Health Ad visor 2008.1: Transient Ischemic Attack (TIA)Cardiology Advisor 2008.1: Carotid Endarterecto mydocumented in this encounter Medications at Time of [...] +---------+--------+ + documented as of this encounter Progress Notes Gustavo Reece MD - 11/21/2009 9:17 AM PDTI saw and evaluated the patient. I agree with the findings and the plan of care as documented in the resident s note. GUSTAVO REECE MD [facility] [address] [id number] [facility] [address] Richard Ott MD - 2009 9:17 AM PDT Surgical Intensive Care Unit Progress Note Author: Richard Butcher MD Attending Physician: Tru Barroso MD Date: 11/21/2009 Post-Operative Day: 1 Identification: Darcy Sun is a 54 y.o. female with medical history significant for HTN, H LD, carotid stenosis, asthma, TIA and PAD. The patient is currently POD 1 s/p right CEA with patch. Interval Events: Left eye with aura c/w "leaves falling from a tree". Also bradycardic ep isode which was not symptomatic. Evaluated patient for both episodes. Carotid occluded on the left side. Reperfusion may be associated with aura. No headache. EKG showed sinus chuck y. No escape rhythm. No prolonged KY or wide QRS. Likely vagal in nature. Subjective: No complaints. Assessment and Plan: (Formulated from the following data) Neurologic: -- Pain control : Well controlled currently on PO vicodin. -- CEA: No e/o neurologic dysfunction. Will continue to follow. Cardiovascular: -- HD stable. On home meds. Respiratory: -- No e/o distress at this time. Continue home meds. Gastrointestinal: -- ADAT Fluids/Electrolytes/Nutrition: -- Continue IVF until taking PO -- Lytes : Replace PRN. -- Nutrition: ADAT Renal: -- Stable Cr and excellent UOP Infectious Disease: -- No e/o infection Heme: -- No e/o bleeding Endocrine: -- Normoglycemic : No RISS. Disposition: -- Transfer to [facility] or discharge home per primary team. FASTHUGS BID: Feeding: ADAT Analgesia: vicodin Sedation: None Thromboprophylaxis: None Head of bed: Greater than 30 degrees. Ulcer ppx: Zantac Glycemic control: none Spontaneous breathing trial: n/a Bowel care: n/a De-escalation: d/c a-line, d/c cvc, d/c parker Data: Medications: albuterol (aka PROVENTIL, VENTOLIN) 90 mcg/Actuation inhaler 2 Puff, 2 Puff, Inhalation, Q4 H PRN aspirin tablet 650 mg, 650 mg, Oral, DAILY atenolol (aka TENORMIN) tablet 50 mg, 50 mg, Oral, BID dextrose 5%-lactated ringers IV, , Intravenous, CONTINUOUS dextrose 5%-NaCl 0.45%-KCl 20 mEq/L IV infusion, 75 mL/hr, Intravenous, CONTINUOUS ezetimibe (aka ZETIA) tablet 10 mg, 10 mg, Oral, QPM hydrALAZINE (aka APRESOLINE) injection 10 mg, 10 mg, Intravenous, Q4H PRN hydrocodone-acetaminophen (aka VICODIN) 5-500 mg 1-2 Tab, 1-2 Tab, Oral, Q4H PRN ipratropium (aka ATROVENT) 17 mcg/Actuation inhaler 2 Puff, 2 Puff, Inhalation, BID labetalol (aka NORMODYNE,TRANDATE) injection 10 mg, 10 mg, Intravenous, Q4H PRN multivitamin 1 Cap, 1 Cap, Oral, DAILY nicotine (aka NICOTROL) 14 mg/24 hr 1 Patch, 1 Patch, Transdermal, DAILY polyethylene glycol (aka MIRALAX) powder 17 g, 17 g, Oral, DAILY PRN ranitidine (aka ZANTAC) tablet 150 mg, 150 mg, Oral, BID REMOVE nicotine patch, , Transdermal, DAILY simvastatin (aka ZOCOR) tablet 80 mg, 80 mg, Oral, QPM OBJECTIVE: Vital Signs: BP 101/59 | Pulse 55 | Temp 36.8 C (98.2 F) | Resp 14 | Ht 1.524 m (5') | Wt 71.7 kg (1 58 lb 1.1 oz) | SpO2 97% Systolic (24hrs), Min:69 mmHg, Max:124 mmHg Diastolic (24hrs), Min:33 mmHg, Max:78 mmHg Pulse Min: 36 Max: 71 Temp Min: 36 C (96.8 F) Max: 36.9 C (98.4 F) Resp Min: 8 Max: 20 SpO2 Min: 95 % Max: 100 % Intake/Output Summary (Last 24 hours) at 11/21/09 0918 Last data filed at 11/21/09 0700 Gross per 24 hour Intake 4013 ml Output 2318 ml Net 1695 ml UO: 2193 mL PO: 1230 mL Physical Exam: General Appearance: NAD Respiratory: Coarse breath sounds bilaterally Cardiovascular: RRR Gastrointestinal: soft and non-tender Lymphatic: minima edema Neurologic: Following commands. Alert and oriented. CN intact. Data: No Data Recorded LastCBG CBG Result ($): 98 (11/20/09 7:00 AM) CBC with diff last 72 hours (or 3 results) Recent Labs Basename 11/21/0932811/20/09 0305 11/19/09 0608 WBC 9.4 6.5 6.5 HB 10.2* 12.5 12.8 HCT 30.5* 36.8 37.3 PLT 231 255 260 NEUTROPERC 88* 60 52 BANDPCT -- -- -- LYMPHPERC 5* 24 32 MONOPERC 7 10* 9* BASOPERC 0 0 1 EOSPERC 0* 7* 6* Chemistries: Last 72 Hours (or 3 results): Recent Labs Basename 11/21/0932811/20/09 2115 11/20/09 0305 NA 137 141 140 K 4.1 4.3 3.7 CL 108 112* 109* BICARB 23 24 25 BUN 9 12 12 CR 0.99 0.83 0.81 CA 8.1* 8.2* 8.7 MG 2.3 2.1 2.1 PO4 3.5 4.2 3.9 Liver Tests: Last 72 hours (or 3 results) Recent Labs Basename 11/20/09 2115 ALB 3.1* Lab Results Component Value Date INR 1.02 11/19/09 PLT 231 11/21/09 APTT 28.4 11/16/09 The attending provider for this patient care encounter is Dr. Reece. They agree with my asse ssment and plan and have evaluated the patient. Gunnar Padilla MD - 4:41 PM PDTAnesthesiology Staff PACU Note Awake, alert VSS after uneventful GA/ETT for right CEA. Comfortable, appears neurologically intact. SpO2 95% on NC O2. CXR shows left 3-lumen CVP line in left SC vein. No PNX or hemothorax. A- Stable. No apparent anesthetic complications. P- Okay to use central line. D/C to ICU once satisfies criteria. ru Barroso MD - 11/20/2009 2:48 PM PDTINPATIENT BRIEF OPERATIVE NOTE Procedure Date: 2009 Author: TRU BARROSO MD Attending Physician: Chio Assistants: Elicia Prior to the beginning of the procedure the team paused to verify the patient's identity, a s well as the procedure to be performed and the correct side/site. All equipment required w as ready and available. The patient was positioned appropriately. Preoperative Diagnosis: symptomatic right carotid stenosis Postoperative Diagnosis: same Procedure Performed: Right carotid endarterectomy with patch Estimated Blood Loss: 100cc Fluids: 1500cc Specimens: plaque Complications: none apparent Drains: none Disposition: PACU Findings: moderate bifurcation stenosis; no intra plague hemorrhage. Excellent back bleedi ng from ICA. Normal artery beyond the bifurcation. Shunt used. Distal endpoint tacked. TRU BARROSO MD o, Emily Ley MD - 0 11/20/2009 10:42 AM PDT VASCULAR SURGERY PROGRESS NOTE Hospital Day:4 Author; VALERIE WARE MD Attending Physician: Emi Arroyo MD Interval Hx: No acute events overnight Physical Exam: Last Vitals: BP 142/79 | Pulse 67 | Temp 36.1 C (97 F) | Resp 20 | Ht 1.524 m (5') | Wt 68 kg (149 lb 14.6 oz) | SpO2 93% O2 Delivery Device: None (room air) (11/20/09 8:0 0 AM) 24 Hour Vital Min/Max: Systolic (24hrs), Min:99 mmHg, Max:142 mmHgDiastolic (24hrs), Min:65 mmHg, Max:84 mmHgPulse Min: 52 Max: 67 Temp Min: 35.7 C (96.3 F) Max: 36.5 C (97.7 F) Resp Min: 16 Max: 20 SpO2 Min: 93 % Max: 97 % Intake/Output Summary (Last 24 hours) at 11/20/09 1042 Last data filed at 11/20/09 0800 Gross per 24 hour Intake 2965 ml Output 2940 ml Net 25 ml Chemistries: Last 72 Hours (or 3 results): Recent Labs Basename 11/20/09 0305 11/19/09 0608 11/18/09 0622 NA 140 140 142 K 3.7 4.0 4.3 CL 109* 109* 108 BICARB 25 25 28 BUN 12 17 19 CR 0.81 0.83 0.95 GLU 104* 98 95 CA 8.7 8.9 8.7 MG 2.1 2.4 2.3 PO4 3.9 4.7 5.3* CBC with diff last 72 hours (or 3 results) Recent Labs Basename 11/20/09 0305 11/19/09 0608 11/18/09 0622 WBC 6.5 6.5 6.6 HB 12.5 12.8 12.5 HCT 36.8 37.3 37.1 PLT 255 260 260 NEUTROPERC 60 52 46* BANDPCT -- -- -- LYMPHPERC 24 32 38 MONOPERC 10* 9* 10* BASOPERC 0 1 1 EOSPERC 7* 6* 4* Lab Results Component Value Date INR 1.02 11/19/09 General Appearance: AAOx3, NAD HEENT: PERRL, EOMI, face symmetric, tongue midline Respiratory: CTAB Cardiovascular: RRR Ext: KIP ESPARZA Assessment and Plan: 54 yo women with symptomatic right carotid stenosis of > 60% and left ICA occlusion. - NPO - IVF - Plan for OR today for Right CEA, patient marked Sam aWre MD Tru Rick MD - 0 11/19/2009 12:03 PM PDT INPATIENT PROGRESS NOTE Hospital Day:3 Author; KARMEN LANGE MD Attending Physician: Emi Arroyo MD Interval Hx: no acute events overnight. TTE done-normal LV function, no mural thrombus note d. Physical Exam: Last Vitals: BP 99/74 | Pulse 60 | Temp 35.8 C (96.4 F) | Resp 18 | Ht 1.524 m (5') | W t 68.4 kg (150 lb 12.7 oz) | SpO2 96% O2 Delivery Device: None (room air) (11/19/09 1 1:15 AM) 24 Hour Vital Min/Max: Systolic (24hrs), Min:99 mmHg, Max:131 mmHgDiastolic (24hrs), Min:56 mmHg, Max:76 mmHgPulse Min: 56 Max: 66 Temp Min: 35.6 C (96.1 F) Max: 36.7 C (98.1 F) Resp Min: 16 Max: 18 SpO2 Min: 96 % Max: 99 % Intake/Output Summary (Last 24 hours) at 11/19/09 1203 Last data filed at 11/19/09 1000 Gross per 24 hour Intake 1240 ml Output 3100 ml Net -1860 ml General Appearance: AAOx3, NAD HEENT: PERRL, EOMI, face symmetric, tongue midline Respiratory: CTAB Cardiovascular: RRR Ext: kip esparza Chemistries: Last 72 Hours (or 3 results): Recent Labs Basename 11/19/09 0608 11/18/09 0622 11/17/09 0557 NA 140 142 138 K 4.0 4.3 3.8 CL 109* 108 110* BICARB 25 28 24 BUN 17 19 11 CR 0.83 0.95 0.79 GLU 98 95 97 CA 8.9 8.7 8.4* MG 2.4 2.3 2.3 PO4 4.7 5.3* 3.7 CBC with diff last 72 hours (or 3 results) Recent Labs Basename 11/19/09 0608 11/18/09 0622 11/17/09 0557 WBC 6.5 6.6 6.7 HB 12.8 12.5 12.2 HCT 37.3 37.1 36.0 PLT 260 260 256 NEUTROPERC 52 46* 46* BANDPCT -- -- -- LYMPHPERC 32 38 39 MONOPERC 9* 10* 11* BASOPERC 1 1 1 EOSPERC 6* 4* 4* Assessment and Plan: 54 yo women with symptomatic right carotid stenosis of > 60% and left ICA occlusion. - NPO - IVF - cont asa, statin, bblocker - OR today for R CEA Vascular Staff I saw and evaluated the patient. I agree with the findings and the plan of care as ifrah almendarez in the resident s note. Unable to take to OR today due to lack of room availability. W ill reschedule for tomorrow. Discussed with patient who agrees with plan. TRU BAXTER MD VASCULAR SURGERY, [address] [place] [address] Email: [email or web address] Kurt Mccoy - 5:33 PM PDTTransthoracic echocardiogram completed. Final report to follow. Karmen Soriano MD - 0 10:38 AM PDT INPATIENT PROGRESS NOTE Hospital Day:2 Author; KARMEN LANGE MD Attending Physician: Emi Arroyo MD Interval Hx: no acute events Physical Exam: Last Vitals: BP 117/71 | Pulse 67 | Temp 36.5 C (97.7 F) | Resp 14 | Ht 1.524 m (5') | Wt 68.4 kg (150 lb 12.7 oz) | SpO2 98% O2 Delivery Device: None (room air) (11/18/09 8:01 AM) 24 Hour Vital Min/Max: Systolic (24hrs), Min:108 mmHg, Max:124 mmHgDiastolic (24hrs), Min:64 mmHg, Max:105 mmHgPul se Min: 52 Max: 72 Temp Min: 35.8 C (96.4 F) Max: 36.8 C (98.2 F) Resp Min: 12 Max: 18 SpO2 Min: 98 % Max: 99 % Intake/Output Summary (Last 24 hours) at 11/18/09 1038 Last data filed at 11/18/09 0900 Gross per 24 hour Intake 1860 ml Output 2100 ml Net -240 ml General Appearance: AAOx3, NAD HEENT: PERRL, EOMI, face symmetric, tongue midline Respiratory: CTAB Cardiovascular: RRR Ext: esparza, wwp Chemistries: Last 72 Hours (or 3 results): Recent Labs Basename 11/18/09 0622 11/17/09 0557 11/16/09 1105 NA 142 138 140 K 4.3 3.8 4.1 CL 108 110* 108 BICARB 28 24 23 BUN 19 11 11 CR 0.95 0.79 0.68 GLU 95 97 90 CA 8.7 8.4* 8.8 MG 2.3 2.3 2.3 PO4 5.3* 3.7 4.2 CBC with diff last 72 hours (or 3 results) Recent Labs Basename 11/18/09 0622 11/17/09 0557 11/16/09 1105 11/16/09 0519 WBC 6.6 6.7 6.4 -- HB 12.5 12.2 12.8 -- HCT 37.1 36.0 36.5 -- PLT 260 256 275 -- NEUTROPERC 46* 46* -- 41* BANDPCT -- -- -- -- LYMPHPERC 38 39 -- 42 MONOPERC 10* 11* -- 11* BASOPERC 1 1 -- 1 EOSPERC 4* 4* -- 5* Assessment and Plan: 54 yo women with symptomatic right carotid stenosis of > 60% and left ICA occlusion. Will g o for R CEA tomorrow. - TTE today - diet as tolerated - NPO p MN - IVF p MN - T&S - consent obtained, site marked - cont asa, statin, and bblocker Karmen Soriano MD - 11/17/2009 10 :28 AM PDT INPATIENT PROGRESS NOTE Hospital Day:1 Author; KARMEN LANGE MD Attending Physician: Emi Arroyo MD Interval Hx: no acute events. CTA head and neck done last night. Physical Exam: Last Vitals: BP 123/69 | Pulse 60 | Temp 36.2 C (97.2 F) | Resp 16 | Ht 1.524 m (5') | Wt 66.8 kg (147 lb 4.3 oz) | SpO2 96% O2 Delivery Device: None (room air) (11/17/09 8:00 AM) 24 Hour Vital Min/Max: Systolic (24hrs), Min:101 mmHg, Max:130 mmHgDiastolic (24hrs), Min:56 mmHg, Max:80 mmHgPuls e Min: 52 Max: 64 Temp Min: 35.9 C (96.6 F) Max: 36.9 C (98.4 F) Resp Min: 16 Max: 18 SpO2 Min: 94 % Max: 98 % Intake/Output Summary (Last 24 hours) at 11/17/09 1028 Last data filed at 11/17/09 0900 Gross per 24 hour Intake 3090 ml Output 1650 ml Net 1440 ml General Appearance: AAOx3 ,NAD HEENT: PERRL, EOMI, face symmetric, tongue midline Respiratory: CTAB Cardiovascular: RRR Ext: esparza, wwp Chemistries: Last 72 Hours (or 3 results): Recent Labs Basename 11/17/09 0557 11/16/09 1105 NA 138 140 K 3.8 4.1 CL 110* 108 BICARB 24 23 BUN 11 11 CR 0.79 0.68 GLU 97 90 CA 8.4* 8.8 MG 2.3 2.3 PO4 3.7 4.2 CBC with diff last 72 hours (or 3 results) Recent Labs Basename 11/17/09 0557 11/16/09 1105 11/16/09 0519 WBC 6.7 6.4 -- HB 12.2 12.8 -- HCT 36.0 36.5 -- PLT 256 275 -- NEUTROPERC 46* -- 41* BANDPCT -- -- -- LYMPHPERC 39 -- 42 MONOPERC 11* -- 11* BASOPERC 1 -- 1 EOSPERC 4* -- 5* Assessment and Plan: 54 yo women with symptomatic right carotid stenosis of > 60% and left ICA occlusion. She barcenas d left face and arm symptoms that have resolved, no repeat episodes since admission. - appreciate Neuro recs- aspiring started - CTA neck shows occlusion of left ICA and high grade stenosis of Right ICA - will plan for R CEA on Thursday - TTE today - diet as tolerated - dc ivf - cont statin and bblocker Grace Yao MD - 11/17/19 10 3:10 PM PDTI agree with the history, exam and care plan as per the distribution warehouse manager and rex perez examined the patient myself. We have been asked by the vascular surgery service to see th is patient for recommendations regarding the diagnosis and evaluation of her transient roubl e speaking and left sided sensory and motor symptoms yesterday morning at 4:30. The patient was trying to light a cigarette at 4:30 AM yesterday. She notes that she could not speak properly -- she knew what she wanted to say but her speech sounded like she had a "mouth full of marbles". Her family told her she was harder to understand than the 2-year- old in the family who is just learning to talk. At the same time, she had numbness of her l eft face and felt like "someone else had control of the strings" of her left arm. She also could not see properly to the left but cannot find the words to describe exactly what was wr cabrera. The worst symptoms lasted 15 minutes but the numbness persisted for about 3 hours. She was unaware that she had a left ICA occlusion and has not had previous stroke or TIA sy mptoms. She did have an aorto-bifem bypass and reports that they needed to use a "juvenile catheter" for the angiogram. She has not had an UT or AF, although did have a history of a rapid heart rate, and was told she could stop using aspirin. On exam this afternoon, she was alert and very talkative. Her speech was fluent and withou t paraphasic errors or dysarthria. EOMi, VFF. Her face was symmetric. There was no drift of the arms or legs and F-N was normal bilaterally. She reported no sensory differences and DSS was intact. Carotid Doppler here shows L ICA occlusion and R ICA 50-79% stenosis: peak systolic velocit y 255 cm/sec, EDV 110. Imp: 54 year-old with multiple stroke risk factors and PVD presents with a TIA early yester day AM causing dysarthria, left sided sensory symptoms and a feeling that she was not contro lling her own left arm. The symptoms are most consistent with right MCA distribution ischem ia. Her left arm symptoms could represent an alien limb-like phenomenon, making cortical is chemia more likely than small vessel disease. Therefore, the right ICA stenosis is likely t o be symptomatic. Recommendations: 1. Would ideally obtain a CTA head and neck to confirm the degree of stenosis, especially given the contralateral occlusion. The CTA would also allow the intracranial vessels to be assessed for any tandem lesions. 2. If at least a moderate right ICA stenosis is confirmed, agree with revascularization of the right carotid. The contralateral occlusion does make this a higher risk CEA case. 3. Daily aspirin (81 mg per day sufficient) and risk factor control, including smoking judy sation and alcohol reduction or cessation. Stroke education was provided to the patient about stroke risk factors and prevention, stro ke signs and symptoms and when to call 911. She is not an acute treatment candidate since h er symptoms have resolved. [facility] DEPARTMENT: [facility] - [id number] Place of Service: - CSN: [id number] Suggested Modifer: GC Resident Present Suggested Level of Service: 54645 - Consults, Comp/mod complex 80 min Suggested Diagnosis: 434.1 - Cerebral embolism and 433.1_0_ - Stenosis, Carotid Artery documented in this enco unter Plan of Treatment +--------+ + + + + | Date | Type | Specialty | Care Team | Description | +--------+ + + + + | 06/17/ | Hospital | Adult Acute Care | Jarrod Barrett MD | | | 2019 | Encounter | | [address] | | | | | | [place], | | | | | | [place] [address] | | | | | | [phone] | | | | | | | | +--------+ + + + + | 06/18/ | Procedure | Surgery | | | | 2019 | Pass | | | | +--------+ + + + + + +------+--------+ + + | Name | Type | Priori | Associated Diagnoses | Date/Time | | | | ty | | | + +------+--------+ + + | DIFFERENTIAL | Lab | Routin | | 11/16/2009 11:05 AM | | | | e | | PDT | + +------+--------+ + + documented as of this encounter Procedures + +--------+ + + + | Procedure Name | Priori | Date/Time | Associated Diagnosis | Comments | | | ty | | | | + +--------+ + + + | RESP CARE THERAPY | Routin | 11/21/2009 | | Results for this | | | e | 4:16 AM | | procedure are in the | | | | PDT | | results section. | + +--------+ + + + | DIFFERENTIAL | Urgent | 11/21/2009 | | Results for this | | | | 3:29 AM | | procedure are in the | | | | PDT | | results section. | + +--------+ + + + | CBC, WITH | Urgent | 11/21/2009 | | Results for this | | DIFFERENTIAL | | 3:29 AM | | procedure are in the | | | | PDT | | results section. | + +--------+ + + + | BASIC METABOLIC SET | Urgent | 11/21/2009 | | Results for this | | (NA, K, CL, TCO2, | | 3:29 AM | | procedure are in the | | BUN, CR, GLU, CA) | | PDT | | results section. | + +--------+ + + + | PHOSPHORUS, PLASMA | Urgent | 11/21/2009 | | Results for this | | | | 3:29 AM | | procedure are in the | | | | PDT | | results section. | + +--------+ + + + | MAGNESIUM, PLASMA | Urgent | 11/21/2009 | | Results for this | | | | 3:29 AM | | procedure are in the | | | | PDT | | results section. | + +--------+ + + + | 12 LEAD ECG | Routin | 11/20/2009 | | Results for this | | | e | 9:23 PM | | procedure are in the | | | | PDT | | results section. | + +--------+ + + + | RENAL FUNCTION SET | Urgent | 11/20/2009 | | Results for this | | (NA,K,CL,CO2,BUN,CRE | | 9:15 PM | | procedure are in the | | AT,GLUC,CA,PHOS,ALB | | PDT | | results section. | | ) | | | | | + +--------+ + + + | MAGNESIUM, PLASMA | Urgent | 11/20/2009 | | Results for this | | | | 9:15 PM | | procedure are in the | | | | PDT | | results section. | + +--------+ + + + | X-RAY PORTABLE CHEST | Urgent | 11/20/2009 | | Results for this | | 1 VIEW | | 4:19 PM | | procedure are in the | | | | PDT | | results section. | + +--------+ + + + | DIFFERENTIAL | Routin | 11/20/2009 | | Results for this | | | e | 3:05 AM | | procedure are in the | | | | PDT | | results section. | + +--------+ + + + | CBC, WITH | Routin | 11/20/2009 | | Results for this | | DIFFERENTIAL | e | 3:05 AM | | procedure are in the | | | | PDT | | results section. | + +--------+ + + + | BASIC METABOLIC SET | Routin | 11/20/2009 | | Results for this | | (NA, K, CL, TCO2, | e | 3:05 AM | | procedure are in the | | BUN, CR, GLU, CA) | | PDT | | results section. | + +--------+ + + + | PHOSPHORUS, PLASMA | Routin | 11/20/2009 | | Results for this | | | e | 3:05 AM | | procedure are in the | | | | PDT | | results section. | + +--------+ + + + | MAGNESIUM, PLASMA | Routin | 11/20/2009 | | Results for this | | | e | 3:05 AM | | procedure are in the | | | | PDT | | results section. | + +--------+ + + + | ANESTHESIA/SEDATION | | 11/20/2009 | | Results for this | | | | 12:00 AM | | procedure are in the | | | | PDT | | results section. | + +--------+ + + + | ANESTHESIA/SEDATION | | 11/20/2009 | | Results for this | | | | 12:00 AM | | procedure are in the | | | | PDT | | results section. | + +--------+ + + + | ANESTHESIA/SEDATION | | 11/20/2009 | | Results for this | | | | 12:00 AM | | procedure are in the | | | | PDT | | results section. | + +--------+ + + + | CARDIOLOGY | | 11/20/2009 | | Results for this | | | | 12:00 AM | | procedure are in the | | | | PDT | | results section. | + +--------+ + + + | OPERATION RECORD | | 11/20/2009 | | Results for this | | | | 12:00 AM | | procedure are in the | | | | PDT | | results section. | + +--------+ + + + | SURGICAL PATHOLOGY | Routin | 11/20/2009 | | Results for this | | | e | | | procedure are in the | | | | | | results section. | + +--------+ + + + | DIFFERENTIAL | Routin | 11/19/2009 | | Results for this | | | e | 6:08 AM | | procedure are in the | | | | PDT | | results section. | + +--------+ + + + | INR | Routin | 11/19/2009 | | Results for this | | | e | 6:08 AM | | procedure are in the | | | | PDT | | results section. | + +--------+ + + + | CBC, WITH | Routin | 11/19/2009 | | Results for this | | DIFFERENTIAL | e | 6:08 AM | | procedure are in the | | | | PDT | | results section. | + +--------+ + + + | BASIC METABOLIC SET | Routin | 11/19/2009 | | Results for this | | (NA, K, CL, TCO2, | e | 6:08 AM | | procedure are in the | | BUN, CR, GLU, CA) | | PDT | | results section. | + +--------+ + + + | PHOSPHORUS, PLASMA | Routin | 11/19/2009 | | Results for this | | | e | 6:08 AM | | procedure are in the | | | | PDT | | results section. | + +--------+ + + + | MAGNESIUM, PLASMA | Routin | 11/19/2009 | | Results for this | | | e | 6:08 AM | | procedure are in the | | | | PDT | | results section. | + +--------+ + + + | TYPE AND SCREEN | Routin | 11/18/2009 | | Results for this | | | e | 10:42 AM | | procedure are in the | | | | PDT | | results section. | + +--------+ + + + | DIFFERENTIAL | Routin | 11/18/2009 | | Results for this | | | e | 6:22 AM | | procedure are in the | | | | PDT | | results section. | + +--------+ + + + | CBC, WITH | Routin | 11/18/2009 | | Results for this | | DIFFERENTIAL | e | 6:22 AM | | procedure are in the | | | | PDT | | results section. | + +--------+ + + + | BASIC METABOLIC SET | Routin | 11/18/2009 | | Results for this | | (NA, K, CL, TCO2, | e | 6:22 AM | | procedure are in the | | BUN, CR, GLU, CA) | | PDT | | results section. | + +--------+ + + + | PHOSPHORUS, PLASMA | Routin | 11/18/2009 | | Results for this | | | e | 6:22 AM | | procedure are in the | | | | PDT | | results section. | + +--------+ + + + | MAGNESIUM, PLASMA | Routin | 11/18/2009 | | Results for this | | | e | 6:22 AM | | procedure are in the | | | | PDT | | results section. | + +--------+ + + + | TRANSTHORACIC | | 11/18/2009 | | Results for this | | ECHOCARDIOGRAM, | | 12:00 AM | | procedure are in the | | ADULT | | PDT | | results section. | + +--------+ + + + | DIFFERENTIAL | Routin | 11/17/2009 | | Results for this | | | e | 5:57 AM | | procedure are in the | | | | PDT | | results section. | + +--------+ + + + | CBC, WITH | Routin | 11/17/2009 | | Results for this | | DIFFERENTIAL | e | 5:57 AM | | procedure are in the | | | | PDT | | results section. | + +--------+ + + + | BASIC METABOLIC SET | Routin | 11/17/2009 | | Results for this | | (NA, K, CL, TCO2, | e | 5:57 AM | | procedure are in the | | BUN, CR, GLU, CA) | | PDT | | results section. | + +--------+ + + + | PHOSPHORUS, PLASMA | Routin | 11/17/2009 | | Results for this | | | e | 5:57 AM | | procedure are in the | | | | PDT | | results section. | + +--------+ + + + | MAGNESIUM, PLASMA | Routin | 11/17/2009 | | Results for this | | | e | 5:57 AM | | procedure are in the | | | | PDT | | results section. | + +--------+ + + + | RESP CARE THERAPY | Routin | 11/17/2009 | | Results for this | | | e | 2:56 AM | | procedure are in the | | | | PDT | | results section. | + +--------+ + + + | CTA NECK W CONTRAST | Routin | 11/16/2009 | | Results for this | | | e | 10:50 PM | | procedure are in the | | | | PDT | | results section. | + +--------+ + + + | CTA HEAD W CONTRAST | Routin | 11/16/2009 | | Results for this | | | e | 10:50 PM | | procedure are in the | | | | PDT | | results section. | + +--------+ + + + | URINE, MICROSCOPIC | Routin | 11/16/2009 | | Results for this | | EXAM | e | 8:56 PM | | procedure are in the | | | | PDT | | results section. | + +--------+ + + + | VASC LAB CAROTID | Routin | 11/16/2009 | | Results for this | | DUPLEX COMPLETE | e | 12:40 PM | | procedure are in the | | BILATERAL | | PDT | | results section. | + +--------+ + + + | INR | Routin | 11/16/2009 | | Results for this | | | e | 11:05 AM | | procedure are in the | | | | PDT | | results section. | + +--------+ + + + | BASIC METABOLIC SET | Routin | 11/16/2009 | | Results for this | | (NA, K, CL, TCO2, | e | 11:05 AM | | procedure are in the | | BUN, CR, GLU, CA) | | PDT | | results section. | + +--------+ + + + | CBC ONLY | Routin | 11/16/2009 | | Results for this | | | e | 11:05 AM | | procedure are in the | | | | PDT | | results section. | + +--------+ + + + | APTT (ACT. PART. | Routin | 11/16/2009 | | Results for this | | THROMBO TIME) | e | 11:05 AM | | procedure are in the | | | | PDT | | results section. | + +--------+ + + + | PHOSPHORUS, PLASMA | Routin | 11/16/2009 | | Results for this | | | e | 11:05 AM | | procedure are in the | | | | PDT | | results section. | + +--------+ + + + | MAGNESIUM, PLASMA | Routin | 11/16/2009 | | Results for this | | | e | 11:05 AM | | procedure are in the | | | | PDT | | results section. | + +--------+ + + + | X-RAY CHEST 2 VIEW | Routin | 11/16/2009 | | Results for this | | | e | 8:38 AM | | procedure are in the | | | | PDT | | results section. | + +--------+ + + + | VASC LAB PORTABLE | Routin | 11/16/2009 | | Results for this | | ABDOMINAL DUPLEX LTD | e | 7:56 AM | | procedure are in the | | ARTERY VEIN | | PDT | | results section. | + +--------+ + + + | RESP CARE THERAPY | Routin | 11/16/2009 | | Results for this | | | e | 5:30 AM | | procedure are in the | | | | PDT | | results section. | + +--------+ + + + | DIFFERENTIAL | Routin | 11/16/2009 | | Results for this | | | e | 5:19 AM | | procedure are in the | | | | PDT | | results section. | + +--------+ + + + | TYPE AND SCREEN | Routin | 11/16/2009 | | Results for this | | | e | 5:19 AM | | procedure are in the | | | | PDT | | results section. | + +--------+ + + + | RESP CARE THERAPY | Routin | 11/16/2009 | | Results for this | | | e | 5:09 AM | | procedure are in the | | | | PDT | | results section. | + +--------+ + + + | 12 LEAD ECG | Routin | 11/16/2009 | | Results for this | | | e | 2:48 AM | | procedure are in the | | | | PDT | | results section. | + +--------+ + + + | CARDIOLOGY | | 11/16/2009 | | Results for this | | | | 12:00 AM | | procedure are in the | | | | PDT | | results section. | + +--------+ + + + documented in this encounter Results RESP CARE THERAPY (11/21/2009 4:16 AM PDT) + + + + + + | Component | Value | Ref Range | Performed | Pathologist | | | | | At | Signature | + + + + + + | RESPIRATORY | Nasal cannula at 3 | | [facility] | | | CARE | LPM.Electronically | | RESPIRATORY | | | | Signed by: Himanshu | | THERAPY | | | | GONZALEZ Mckeon | | | | + + + + + + + + | Specimen | + + | | + + + + + + + | Performing | Address | City/State/Zipcode | Phone Number | | Organization | | | | + + + + + | [facility] | [address] | [place], [place] | | | THERAPY | [address] | [address] | | + + + + + DIFFERENTIAL (11/21/2009 3:29 AM PDT) + +---------+ + + + | Component | Value | Ref Range | Performed | Pathologist | | | | | At | Signature | + +---------+ + + + | NEUTROPHIL | 88 (H) | 50 - 70 % | [facility] | | | % | | | DEPARTMENT | | | | | | OF | | | | | | PATHOLOGY | | + +---------+ + + + | LYMPHOCYTE | 5 (L) | 18 - 42 % | [facility] | | | % | | | DEPARTMENT | | | | | | OF | | | | | | PATHOLOGY | | + +---------+ + + + | MONOCYTE % | 7 | 2 - 8 % | [facility] | | | | | | DEPARTMENT | | | | | | OF | | | | | | PATHOLOGY | | + +---------+ + + + | EOS % | 0 (L) | 1 - 3 % | [facility] | | | | | | DEPARTMENT | | | | | | OF | | | | | | PATHOLOGY | | + +---------+ + + + | BASO % | 0 | <3 % | [facility] | | | | | | DEPARTMENT | | | | | | OF | | | | | | PATHOLOGY | | + +---------+ + + + | NEUTROPHIL | 8.3 (H) | 1.8 - 7.7 K/cu | [facility] | | | # | | mm | DEPARTMENT | | | | | | OF | | | | | | PATHOLOGY | | + +---------+ + + + | LYMPHOCYTE | 0.5 (L) | 1.0 - 4.8 K/cu | [facility] | | | # | | mm | DEPARTMENT | | | | | | OF | | | | | | PATHOLOGY | | + +---------+ + + + | MONOCYTE # | 0.7 | <0.9 K/cu mm | [facility] | | | | | | DEPARTMENT | | | | | | OF | | | | | | PATHOLOGY | | + +---------+ + + + | EOS # | 0.0 | <0.6 K/cu mm | [facility] | | | | | | DEPARTMENT | | | | | | OF | | | | | | PATHOLOGY | | + +---------+ + + + | BASO # | 0.0 | <0.3 | [facility] | | | | | | DEPARTMENT | | | | | | OF | | | | | | PATHOLOGY | | + +---------+ + + + + + | Specimen | + + | | + + + + + + + | Performing | Address | City/State/Zipcode | Phone Number | | Organization | | | | + + + + + | [facility] | [address] | [place] [address] | | | PATHOLOGY | [address] | | | + + + + + PHOSPHORUS, PLASMA (11/21/2009 3:29 AM PDT) + +-------+ + + + | Component | Value | Ref Range | Performed | Pathologist | | | | | At | Signature | + +-------+ + + + | PHOSPHORUS, | 3.5 | 2.4 - 4.7 mg/dL | [facility] | | | PLASMA | | | DEPARTMENT | | | (LAB) | | | OF | | | | | | PATHOLOGY | | + +-------+ + + + + + | Specimen | + + | Blood - Blood | + + + + + + + | Performing | Address | City/State/Zipcode | Phone Number | | Organization | | | | + + + + + | [facility] | [address] | [place] [address] | | | PATHOLOGY | [address] | | | + + + + + MAGNESIUM, PLASMA (11/21/2009 3:29 AM PDT) + +-------+ + + + | Component | Value | Ref Range | Performed | Pathologist | | | | | At | Signature | + +-------+ + + + | MAGNESIUM,P | 2.3 | 1.8 - 2.5 mg/dL | [facility] | | | LASMA | | | DEPARTMENT | | | | | | OF | | | | | | PATHOLOGY | | + +-------+ + + + + + | Specimen | + + | Blood - Blood | + + + + + + + | Performing | Address | City/State/Zipcode | Phone Number | | Organization | | | | + + + + + | [facility] | [address] | [place] [address] | | | PATHOLOGY | [address] | | | + + + + + CBC, WITH DIFFERENTIAL (11/21/2009 3:29 AM PDT) + + + + + + | Component | Value | Ref Range | Performed | Pathologist | | | | | At | Signature | + + + + + + | WHITE CELL | 9.4 | 4.4 - 11.0 K/cu | [facility] | | | COUNT | | mm | DEPARTMENT | | | | | | OF | | | | | | PATHOLOGY | | + + + + + + | RED CELL | 3.13 (L) | 4.00 - 5.20 | [facility] | | | COUNT | | M/cu mm | DEPARTMENT | | | | | | OF | | | | | | PATHOLOGY | | + + + + + + | HEMOGLOBIN | 10.2 (L) | 12.0 - 16.0 | [facility] | | | | | g/dL | DEPARTMENT | | | | | | OF | | | | | | PATHOLOGY | | + + + + + + | HEMATOCRIT | 30.5 (L) | 36.0 - 46.0 % | [facility] | | | | | | DEPARTMENT | | | | | | OF | | | | | | PATHOLOGY | | + + + + + + | MCV | 97.3 (H) | 80.0 - 96.0 fL | [facility] | | | | | | DEPARTMENT | | | | | | OF | | | | | | PATHOLOGY | | + + + + + + | MCHC | 33.6 | 33.4 - 35.5 | [facility] | | | | | g/dL | DEPARTMENT | | | | | | OF | | | | | | PATHOLOGY | | + + + + + + | RDW | 13.6 | 11.5 - 15.0 % | [facility] | | | | | | DEPARTMENT | | | | | | OF | | | | | | PATHOLOGY | | + + + + + + | PLATELET | 231 | 150 - 400 K/cu | [facility] | | | COUNT | | mm | DEPARTMENT | | | | | | OF | | | | | | PATHOLOGY | | + + + + + + + + | Specimen | + + | Blood - Blood | + + + + + + + | Performing | Address | City/State/Zipcode | Phone Number | | Organization | | | | + + + + + | [facility] | [address] | [place] [address] | | | PATHOLOGY | [address] | | | + + + + + BASIC METABOLIC SET (NA, K, CL, TCO2, BUN, CR, GLU, CA) (11/21/2009 3:29 AM PDT) + +---------+ + + + | Component | Value | Ref Range | Performed | Pathologist | | | | | At | Signature | + +---------+ + + + | GLUCOSE, | 141 (H) | 60 - 99 mg/dL | [facility] | | | PLASMA | | | DEPARTMENT | | | (LAB) | | | OF | | | | | | PATHOLOGY | | + +---------+ + + + | BUN, PLASMA | 9 | 6 - 20 mg/dL | [facility] | | | (LAB) | | | DEPARTMENT | | | | | | OF | | | | | | PATHOLOGY | | + +---------+ + + + | CREATININE | 0.99 | 0.60 - 1.10 | [facility] | | | PLASMA | | mg/dL | DEPARTMENT | | | (LAB) | | | OF | | | | | | PATHOLOGY | | + +---------+ + + + | SODIUM, | 137 | 134 - 143 | [facility] | | | PLASMA | | mmol/L | DEPARTMENT | | | (LAB) | | | OF | | | | | | PATHOLOGY | | + +---------+ + + + | POTASSIUM, | 4.1 | 3.4 - 5.0 | [facility] | | | PLASMA | | mmol/L | DEPARTMENT | | | (LAB) | | | OF | | | | | | PATHOLOGY | | + +---------+ + + + | CHLORIDE, | 108 | 97 - 108 mmol/L | [facility] | | | PLASMA | | | DEPARTMENT | | | (LAB) | | | OF | | | | | | PATHOLOGY | | + +---------+ + + + | CALCIUM, | 8.1 (L) | 8.6 - 10.2 | [facility] | | | PLASMA | | mg/dL | DEPARTMENT | | | (LAB) | | | OF | | | | | | PATHOLOGY | | + +---------+ + + + | TOTAL CO2, | 23 | 23 - 31 mmol/L | [facility] | | | PLASMA | | | DEPARTMENT | | | (LAB) | | | OF | | | | | | PATHOLOGY | | + +---------+ + + + + + | Specimen | + + | Blood - Blood | + + + + + + + | Performing | Address | City/State/Zipcode | Phone Number | | Organization | | | | + + + + + | [facility] | [address] | [place] [address] | | | PATHOLOGY | [address] | | | + + + + + 12 LEAD ECG (11/20/2009 9:23 PM PDT) + + + + + + | Component | Value | Ref Range | Performed | Pathologist | | | | | At | Signature | + + + + + + | VENTRICULAR | 51 | BPM | [facility] | | | RATE | | | OF | | | | | | CARDIOLOGY | | + + + + + + | ATRIAL RATE | 51 | BPM | [facility] | | | | | | OF | | | | | | CARDIOLOGY | | + + + + + + | P-R | 168 | ms | [facility] | | | INTERVAL | | | OF | | | | | | CARDIOLOGY | | + + + + + + | QRS | 66 | ms | [facility] | | | DURATION | | | OF | | | | | | CARDIOLOGY | | + + + + + + | QT | 442 | ms | [facility] | | | | | | OF | | | | | | CARDIOLOGY | | + + + + + + | QTC | 407 | ms | [facility] | | | | | | OF | | | | | | CARDIOLOGY | | + + + + + + | P AXIS | 14 | degrees | [facility] | | | | | | OF | | | | | | CARDIOLOGY | | + + + + + + | R AXIS | 31 | degrees | [facility] | | | | | | OF | | | | | | CARDIOLOGY | | + + + + + + | T AXIS | 56 | degrees | [facility] | | | | | | OF | | | | | | CARDIOLOGY | | + + + + + + | EKG | Sinus | | [facility] | | | DIAGNOSIS | bradycardiaOtherwise | | OF | | | | normal ECG"I have | | CARDIOLOGY | | | | personally interpreted | | | | | | this report, either | | | | | | alone or with a | | | | | | trainee."Confirmed by | | | | | | JULIAN OWENS ([id number]) | | | | | | on 21-Nov-2009 21:30:32 | | | | + + + + + + | LINK TO | | | [facility] | | | [facility] | | | OF | | | (ECG | | | CARDIOLOGY | | | VIEWER) | | | | | + + + + + + + + | Specimen | + + | | + + + + + | Narrative | Performed At | + + + | Please click | [facility] OF | | on view image for the detailed interpretation from GI Track results. | CARDIOLOGY | | | | + + + + + + + + | Performing | Address | City/State/Zipcode | Phone Number | | Organization | | | | + + + + + | [facility] | [address] | [place], [place] | | | CARDIOLOGY | [facility] | [address] | | + + + + + MAGNESIUM, PLASMA (11/20/2009 9:15 PM PDT) + +-------+ + + + | Component | Value | Ref Range | Performed | Pathologist | | | | | At | Signature | + +-------+ + + + | MAGNESIUM,P | 2.1 | 1.8 - 2.5 mg/dL | [facility] | | | LASMA | | | DEPARTMENT | | | | | | OF | | | | | | PATHOLOGY | | + +-------+ + + + + + | Specimen | + + | Blood - Blood | + + + + + + + | Performing | Address | City/State/Zipcode | Phone Number | | Organization | | | | + + + + + | [facility] | [address] | [place] [address] | | | PATHOLOGY | [address] | | | + + + + + RENAL FUNCTION SET (NA,K,CL,CO2,BUN,CREAT,GLUC,CA,PHOS,ALB ) (11/20/2009 9:15 PM PDT) + +---------+ + + + | Component | Value | Ref Range | Performed | Pathologist | | | | | At | Signature | + +---------+ + + + | GLUCOSE, | 154 (H) | 60 - 99 mg/dL | [facility] | | | PLASMA | | | DEPARTMENT | | | (LAB) | | | OF | | | | | | PATHOLOGY | | + +---------+ + + + | BUN, PLASMA | 12 | 6 - 20 mg/dL | [facility] | | | (LAB) | | | DEPARTMENT | | | | | | OF | | | | | | PATHOLOGY | | + +---------+ + + + | CREATININE | 0.83 | 0.60 - 1.10 | [facility] | | | PLASMA | | mg/dL | DEPARTMENT | | | (LAB) | | | OF | | | | | | PATHOLOGY | | + +---------+ + + + | ALBUMIN, | 3.1 (L) | 3.5 - 4.7 g/dL | [facility] | | | PLASMA | | | DEPARTMENT | | | (LAB) | | | OF | | | | | | PATHOLOGY | | + +---------+ + + + | CALCIUM, | 8.2 (L) | 8.6 - 10.2 | [facility] | | | PLASMA | | mg/dL | DEPARTMENT | | | (LAB) | | | OF | | | | | | PATHOLOGY | | + +---------+ + + + | PHOSPHORUS, | 4.2 | 2.4 - 4.7 mg/dL | [facility] | | | PLASMA | | | DEPARTMENT | | | (LAB) | | | OF | | | | | | PATHOLOGY | | + +---------+ + + + | SODIUM, | 141 | 134 - 143 | [facility] | | | PLASMA | | mmol/L | DEPARTMENT | | | (LAB) | | | OF | | | | | | PATHOLOGY | | + +---------+ + + + | POTASSIUM, | 4.3 | 3.4 - 5.0 | [facility] | | | PLASMA | | mmol/L | DEPARTMENT | | | (LAB) | | | OF | | | | | | PATHOLOGY | | + +---------+ + + + | CHLORIDE, | 112 (H) | 97 - 108 mmol/L | [facility] | | | PLASMA | | | DEPARTMENT | | | (LAB) | | | OF | | | | | | PATHOLOGY | | + +---------+ + + + | TOTAL CO2, | 24 | 23 - 31 mmol/L | [facility] | | | PLASMA | | | DEPARTMENT | | | (LAB) | | | OF | | | | | | PATHOLOGY | | + +---------+ + + + + + | Specimen | + + | Blood - Blood | + + + + + + + | Performing | Address | City/State/Zipcode | Phone Number | | Organization | | | | + + + + + | [facility] | [address] | [place] [address] | | | PATHOLOGY | [address] | | | + + + + + X-RAY PORTABLE CHEST 1 VIEW (11/20/2009 4:19 PM PDT) + + + + + + | Component | Value | Ref Range | Performed | Pathologist | | | | | At | Signature | + + + + + + | X-RAY | EXAM: PA Chest | | | | | PORTABLE | COMPARISON: 11/16/09 | | | | | CHEST 1 | INDICATION: Central line | | | | | VIEW | placement FINDINGS: | | | | | | The cardiac and | | | | | | mediastinal contours are | | | | | | normal. | | | | | | Leftsubclavian central | | | | | | line has its tip | | | | | | involving the upper | | | | | | superior venacava. The | | | | | | lungs are clear. | | | | | | Osseous structures are | | | | | | unremarkable.There is no | | | | | | pneumothorax or | | | | | | effusions. IMPRESSION: | | | | | | Left subclavian central | | | | | | line placed without | | | | | | acute complication. I | | | | | | have personally viewed | | | | | | this procedure/exam and | | | | | | reviewed this report. | | | | | | Author: LORETO Lino | | | | | | Johnathan MERINOReviewer: | | | | | | LORETO MERINO M.D. | | | | | | STATUS FINAL / Dr. DANGELO | | | | | | Holland MERINO | | | | + + + + + + + + | Specimen | + + | | + + + +---------+ + + | Performing | Address | City/State/Zipcode | Phone Number | | Organization | | | | + +---------+ + + | [facility] | | | | | RADIOLOGY | | | | + +---------+ + + DIFFERENTIAL (11/20/2009 3:05 AM PDT) + +--------+ + + + | Component | Value | Ref Range | Performed | Pathologist | | | | | At | Signature | + +--------+ + + + | NEUTROPHIL | 60 | 50 - 70 % | [facility] | | | % | | | DEPARTMENT | | | | | | OF | | | | | | PATHOLOGY | | + +--------+ + + + | LYMPHOCYTE | 24 | 18 - 42 % | [facility] | | | % | | | DEPARTMENT | | | | | | OF | | | | | | PATHOLOGY | | + +--------+ + + + | MONOCYTE % | 10 (H) | 2 - 8 % | [facility] | | | | | | DEPARTMENT | | | | | | OF | | | | | | PATHOLOGY | | + +--------+ + + + | EOS % | 7 (H) | 1 - 3 % | [facility] | | | | | | DEPARTMENT | | | | | | OF | | | | | | PATHOLOGY | | + +--------+ + + + | BASO % | 0 | <3 % | [facility] | | | | | | DEPARTMENT | | | | | | OF | | | | | | PATHOLOGY | | + +--------+ + + + | NEUTROPHIL | 3.9 | 1.8 - 7.7 K/cu | [facility] | | | # | | mm | DEPARTMENT | | | | | | OF | | | | | | PATHOLOGY | | + +--------+ + + + | LYMPHOCYTE | 1.6 | 1.0 - 4.8 K/cu | [facility] | | | # | | mm | DEPARTMENT | | | | | | OF | | | | | | PATHOLOGY | | + +--------+ + + + | MONOCYTE # | 0.7 | <0.9 K/cu mm | [facility] | | | | | | DEPARTMENT | | | | | | OF | | | | | | PATHOLOGY | | + +--------+ + + + | EOS # | 0.5 | <0.6 K/cu mm | [facility] | | | | | | DEPARTMENT | | | | | | OF | | | | | | PATHOLOGY | | + +--------+ + + + | BASO # | 0.0 | <0.3 | [facility] | | | | | | DEPARTMENT | | | | | | OF | | | | | | PATHOLOGY | | + +--------+ + + + + + | Specimen | + + | | + + + + + + + | Performing | Address | City/State/Zipcode | Phone Number | | Organization | | | | + + + + + | [facility] | [address] | [place] [address] | | | PATHOLOGY | [address] | | | + + + + + PHOSPHORUS, PLASMA (11/20/2009 3:05 AM PDT) + +-------+ + + + | Component | Value | Ref Range | Performed | Pathologist | | | | | At | Signature | + +-------+ + + + | PHOSPHORUS, | 3.9 | 2.4 - 4.7 mg/dL | [facility] | | | PLASMA | | | DEPARTMENT | | | (LAB) | | | OF | | | | | | PATHOLOGY | | + +-------+ + + + + + | Specimen | + + | Blood - Blood | + + + + + + + | Performing | Address | City/State/Zipcode | Phone Number | | Organization | | | | + + + + + | [facility] | [address] | [place] [address] | | | PATHOLOGY | [address] | | | + + + + + MAGNESIUM, PLASMA (11/20/2009 3:05 AM PDT) + +-------+ + + + | Component | Value | Ref Range | Performed | Pathologist | | | | | At | Signature | + +-------+ + + + | MAGNESIUM,P | 2.1 | 1.8 - 2.5 mg/dL | [facility] | | | LASMA | | | DEPARTMENT | | | | | | OF | | | | | | PATHOLOGY | | + +-------+ + + + + + | Specimen | + + | Blood - Blood | + + + + + + + | Performing | Address | City/State/Zipcode | Phone Number | | Organization | | | | + + + + + | [facility] | [address] | [place] [address] | | | PATHOLOGY | [address] | | | + + + + + CBC, WITH DIFFERENTIAL (11/20/2009 3:05 AM PDT) + + + + + + | Component | Value | Ref Range | Performed | Pathologist | | | | | At | Signature | + + + + + + | WHITE CELL | 6.5 | 4.4 - 11.0 K/cu | [facility] | | | COUNT | | mm | DEPARTMENT | | | | | | OF | | | | | | PATHOLOGY | | + + + + + + | RED CELL | 3.80 (L) | 4.00 - 5.20 | [facility] | | | COUNT | | M/cu mm | DEPARTMENT | | | | | | OF | | | | | | PATHOLOGY | | + + + + + + | HEMOGLOBIN | 12.5 | 12.0 - 16.0 | [facility] | | | | | g/dL | DEPARTMENT | | | | | | OF | | | | | | PATHOLOGY | | + + + + + + | HEMATOCRIT | 36.8 | 36.0 - 46.0 % | [facility] | | | | | | DEPARTMENT | | | | | | OF | | | | | | PATHOLOGY | | + + + + + + | MCV | 96.8 (H) | 80.0 - 96.0 fL | [facility] | | | | | | DEPARTMENT | | | | | | OF | | | | | | PATHOLOGY | | + + + + + + | MCHC | 33.9 | 33.4 - 35.5 | [facility] | | | | | g/dL | DEPARTMENT | | | | | | OF | | | | | | PATHOLOGY | | + + + + + + | RDW | 14.0 | 11.5 - 15.0 % | [facility] | | | | | | DEPARTMENT | | | | | | OF | | | | | | PATHOLOGY | | + + + + + + | PLATELET | 255 | 150 - 400 K/cu | [facility] | | | COUNT | | mm | DEPARTMENT | | | | | | OF | | | | | | PATHOLOGY | | + + + + + + + + | Specimen | + + | Blood - Blood | + + + + + + + | Performing | Address | City/State/Zipcode | Phone Number | | Organization | | | | + + + + + | [facility] | [address] | [place] [address] | | | PATHOLOGY | [address] | | | + + + + + BASIC METABOLIC SET (NA, K, CL, TCO2, BUN, CR, GLU, CA) (11/20/2009 3:05 AM PDT) + +---------+ + + + | Component | Value | Ref Range | Performed | Pathologist | | | | | At | Signature | + +---------+ + + + | GLUCOSE, | 104 (H) | 60 - 99 mg/dL | [facility] | | | PLASMA | | | DEPARTMENT | | | (LAB) | | | OF | | | | | | PATHOLOGY | | + +---------+ + + + | BUN, PLASMA | 12 | 6 - 20 mg/dL | [facility] | | | (LAB) | | | DEPARTMENT | | | | | | OF | | | | | | PATHOLOGY | | + +---------+ + + + | CREATININE | 0.81 | 0.60 - 1.10 | [facility] | | | PLASMA | | mg/dL | DEPARTMENT | | | (LAB) | | | OF | | | | | | PATHOLOGY | | + +---------+ + + + | SODIUM, | 140 | 134 - 143 | [facility] | | | PLASMA | | mmol/L | DEPARTMENT | | | (LAB) | | | OF | | | | | | PATHOLOGY | | + +---------+ + + + | POTASSIUM, | 3.7 | 3.4 - 5.0 | [facility] | | | PLASMA | | mmol/L | DEPARTMENT | | | (LAB) | | | OF | | | | | | PATHOLOGY | | + +---------+ + + + | CHLORIDE, | 109 (H) | 97 - 108 mmol/L | [facility] | | | PLASMA | | | DEPARTMENT | | | (LAB) | | | OF | | | | | | PATHOLOGY | | + +---------+ + + + | CALCIUM, | 8.7 | 8.6 - 10.2 | [facility] | | | PLASMA | | mg/dL | DEPARTMENT | | | (LAB) | | | OF | | | | | | PATHOLOGY | | + +---------+ + + + | TOTAL CO2, | 25 | 23 - 31 mmol/L | [facility] | | | PLASMA | | | DEPARTMENT | | | (LAB) | | | OF | | | | | | PATHOLOGY | | + +---------+ + + + + + | Specimen | + + | Blood - Blood | + + + + + + + | Performing | Address | City/State/Zipcode | Phone Number | | Organization | | | | + + + + + | [facility] | [address] | [place] [address] | | | PATHOLOGY | [address] | | | + + + + + OPERATION RECORD (11/20/2009 12:00 AM PDT) + + + | Narrative | Performed At | + + + | [id number] | | | [id number] | | | [id number] JENNY MONAE [id number] | | | Date: 11/20/2009 Attending | | | Surgeon: Tru Barroso M.D. | | | Shank Taper(s): Shanta Rubi M.D. | | | Preoperative Diagnosis(es): Symptomatic right carotid artery | | | stenosis. Postoperative Diagnosis(es): Symptomatic right | | | carotid artery stenosis. Procedures Performed: Right carotid | | | endarterectomy with patch angioplasty. Anesthesia: General | | | endotracheal. Indications: Ms. Sun is a 54-year-old female who | | | recently presented with symptoms consistent with the middle | | | cerebral artery distribution TIA on the right side. She at the | | | time of presentation was found to have an approximately 60% | | | stenosis of the right internal carotid artery, and an internal | | | carotid artery occlusion on the left. The internal carotid artery | | | occlusion was not previously known. She was seen by the Neurology | | | Service who felt that her symptoms were most consistent with a | | | right carotid artery stenosis. She is brought to the operating room | | | at this time for carotid endarterectomy. Findings: At the | | | time of operation, there was a hard calcific lesion at the right | | | carotid bifurcation, approximately 60%. There was no degenerated | | | plaque within the vessel. At the end of the procedure, there were | | | excellent Doppler signals and pulses in the internal, external, and | | | common carotid arteries. Specimens: Tissue to pathology is | | | plaque. Estimated Blood Loss: Approximately 50 to 100 cc. | | | Technical Description: Ms. Sun was brought to the operating room, | | | placed on the operating table supine under general anesthesia. | | | The patient's head was turned to the left and the right side of | | | the neck and chest were prepped with ChloraPrep and draped as a | | | sterile field. Incision was made along the anterior border of the | | | sternocleidomastoid muscle after surgical pause. The incision was | | | continued through the subcutaneous tissues and platysma with | | | electrocautery. The carotid sheath was incised after mobilization | | | of the external carotid and the left sternocleidomastoid muscle. | | | The carotid bifurcation was actually quite low in the neck line | | | just above the omohyoid muscle. The omohyoid muscle, however, did | | | not require division to get adequate length of common carotid | | | artery. The common carotid artery was then dissected just at the | | | level of the omohyoid muscle and was controlled with a Dacron tape | | | and Rumel tourniquet. Dissection then proceeded more cephalad. | | | The ansa cervicalis was encountered and divided. The | | | hypoglossal nerve was identified and preserved. The external | | | carotid artery was isolated at its base and controlled with a | | | silastic vessel loop. The superior thyroid artery was also | | | isolated and controlled with double looped silastic vessel. The | | | internal carotid artery beyond the level of plaque was controlled | | | with silastic vessel loop. The blood pressure was then adjusted to | | | 150 mmHg by the Anesthesia Service. 5000 units of heparin was | | | administered, and after allowing it to circulate for 3 minutes, a | | | clamp was placed first on the internal carotid then the external | | | and common carotid arteries. A longitudinal arteriotomy was made, | | | extending from below the plaque to above the plaque onto the | | | internal carotid artery. The internal carotid artery was a normal | | | vessel beyond the bifurcation. A Sundt shunt was then inserted | | | first into the internal carotid artery and then into the common | | | carotid artery. It was held in place in the internal carotid | | | artery with a Jj clamp and in the common carotid artery by the | | | Rumel tourniquet. Endarterectomy was then performed with eversion | | | endarterectomy of the external carotid artery. Good backbleeding | | | was demonstrated from the external carotid. The internal carotid | | | artery plaque feathered nicely, and the endpoint was | | | prophylactically tacked with several interrupted 7-0 Prolene | | | sutures. All remaining fronds from the endarterectomy surface were | | | removed. The luminal surface was thoroughly irrigated with | | | heparinized saline solution. A bovine pericardium patch was then | | | sewed in place with running 6-0 Prolene suture. Prior to tying | | | down the last stitches, the shunt was removed with good | | | demonstrated backbleeding from the internal and external carotid | | | arteries and good forward bleeding from the common carotid artery. | | | The luminal surface was once again irrigated with heparinized | | | saline solution and the suture line closed. Flow was then restored | | | first to the external and then to the internal carotid artery. | | | There were 1 or 2 small hemostatic stitches required to ensure | | | hemostasis at the suture line. The heparin was reversed with 40 | | | mg of intravenous protamine. Hemostasis was completed with the use | | | of electrocautery and the wound thoroughly irrigated with | | | antibiotic solution. Continuous-wave Doppler demonstrated | | | excellent Doppler signals in the internal, external, and common | | | carotid arteries, and there were excellent pulses in these vessels. | | | The wound was then closed by closing the platysma with running 3-0 | | | Vicryl suture and the skin with 4-0 Biosyn. Dermabond was applied. | | | She was awakened in the operating room without neurologic deficit | | | and transferred to the recovery area in stable condition. She | | | seemed to tolerate the procedure well. TRU BARROSO, | | | undercover operator [facility] / [id number] / [id number] / [id number] / | | | | | + + + + + | Procedure Note | + + | Tru Barroso MD - 11/20/2009 12:00 AM PDT [id number] | | [id number] JENNY MONAE | | [id number] Date: 11/20/2009 Attending Surgeon: | | Tru Barroso M.D. Shank Taper(s): Shanta Rubi M.D. | | Preoperative Diagnosis(es):Symptomatic right carotid artery stenosis. Postoperative | | Diagnosis(es):Symptomatic right carotid artery stenosis. Procedures Performed:Right | | carotid endarterectomy with patch angioplasty. Anesthesia:General endotracheal. | | Indications:Ms. Sun is a 54-year-old female who recently presented with | | symptomsconsistent with the middle cerebral artery distribution TIA on the rightside. | | She at the time of presentation was found to have an [id number]% stenosis of the | | right internal carotid artery, and an internal carotidartery occlusion on the left. The | | internal carotid artery occlusion wasnot previously known. She was seen by the | | Neurology Service who felt thather symptoms were most consistent with a right carotid | | artery stenosis.She is brought to the operating room at this time for carotid | | endarterectomy. Findings:At the time of operation, there was a hard calcific lesion at | | the rightcarotid bifurcation, approximately 60%. There was no degenerated plaquewithin | | the vessel. At the end of the procedure, there were excellentDoppler signals and pulses | | in the internal, external, and common carotidarteries. Specimens:Tissue to pathology | | is plaque. Estimated Blood Loss:Approximately 50 to 100 cc. Technical Description: | Ruth Ann Sun was brought to the operating room, placed on the operating tablesupine under general | | anesthesia. The patient's head was turned to the leftand the right side of the neck | | and chest were prepped with ChloraPrep anddraped as a sterile field. Incision was made | | along the anterior border ofthe sternocleidomastoid muscle after surgical pause. The | | incision wascontinued through the subcutaneous tissues and platysma withelectrocautery. | | The carotid sheath was incised after mobilization of theexternal carotid and the left | | sternocleidomastoid muscle. The carotid bifurcation wasactually quite low in the neck | | line just above the omohyoid muscle. Theomohyoid muscle, however, did not require | | division to get adequate length of commoncarotid artery. The common carotid artery was | | then dissected just at thelevel of the omohyoid muscle and was controlled with a Dacron | | tape andRumel tourniquet. Dissection then proceeded more cephalad. The ansacervicalis | | was encountered and divided. The hypoglossal nerve wasidentified and preserved. The | | external carotid artery was isolated at itsbase and controlled with a silastic vessel | | loop. The superior thyroid arterywas also isolated and controlled with double looped | | silastic vessel. Theinternal carotid artery beyond the level of plaque was controlled | | withsilastic vessel loop. The blood pressure was then adjusted to 150 mmHg bythe | | Anesthesia Service. 5000 units of heparin was administered, and afterallowing it to | | circulate for 3 minutes, a clamp was placed first on theinternal carotid then the | | external and common carotid arteries. Alongitudinal arteriotomy was made, extending | | from below the plaque to abovethe plaque onto the internal carotid artery. The internal | | carotid arterywas a normal vessel beyond the bifurcation. A Sundt shunt was | | theninserted first into the internal carotid artery and then into the commoncarotid | | artery. It was held in place in the internal carotid artery with aJavid clamp and in | | the common carotid artery by the Rumel tourniquet.Endarterectomy was then performed with | | eversion endarterectomy of theexternal carotid artery. Good backbleeding was | | demonstrated from theexternal carotid. The internal carotid artery plaque feathered | | nicely, andthe endpoint was prophylactically tacked with several interrupted 7-0Prolene | | sutures. All remaining fronds from the endarterectomy surface wereremoved. The luminal | | surface was thoroughly irrigated with heparinizedsaline solution. A bovine pericardium | | patch was then sewed in place withrunning 6-0 Prolene suture. Prior to tying down the | | last stitches, theshunt was removed with good demonstrated backbleeding from the | | internal andexternal carotid arteries and good forward bleeding from the common | | carotidartery. The luminal surface was once again irrigated with heparinizedsaline | | solution and the suture line closed. Flow was then restored first to the external and | | then to the internal carotid artery. There were1 or 2 small hemostatic stitches | | required to ensure hemostasis at thesuture line. The heparin was reversed with 40 mg of | | intravenous protamine.Hemostasis was completed with the use of electrocautery and the | | woundthoroughly irrigated with antibiotic solution. Continuous-wave Dopplerdemonstrated | | excellent Doppler signals in the internal, external, andcommon carotid arteries, and | | there were excellent pulses in these vessels.The wound was then closed by closing the | | platysma with running 3-0 Vicrylsuture and the skin with 4-0 Biosyn. Dermabond was | | applied. She wasawakened in the operating room without neurologic deficit and | | transferredto the recovery area in stable condition. She seemed to tolerate | | theprocedure well. TRU BARROSO, [facility] / [id number] / [id number] / | | [id number] / T: 11/21/2009 | |external carotid and the left sternocleidomastoid muscle. The carotid bifurcation was | |actually quite low in the neck line just above the omohyoid muscle. The | |omohyoid muscle, however, did not require division to get adequate length of common | |carotid artery. The common carotid artery was then dissected just at the | |level of the omohyoid muscle and was controlled with a Dacron tape and | |Rumel tourniquet. Dissection then proceeded more cephalad. The ansa | |cervicalis was encountered and divided. The hypoglossal nerve was | |identified and preserved. The external carotid artery was isolated at its | |base and controlled with a silastic vessel loop. The superior thyroid artery | |was also isolated and controlled with double looped silastic vessel. The | |internal carotid artery beyond the level of plaque was controlled with | |silastic vessel loop. The blood pressure was then adjusted to 150 mmHg by | |the Anesthesia Service. 5000 units of heparin was administered, and after | |allowing it to circulate for 3 minutes, a clamp was placed first on the | |internal carotid then the external and common carotid arteries. A | |longitudinal arteriotomy was made, extending from below the plaque to above | |the plaque onto the internal carotid artery. The internal carotid artery | |was a normal vessel beyond the bifurcation. A Sundt shunt was then | |inserted first into the internal carotid artery and then into the common | |carotid artery. It was held in place in the internal carotid artery with a | |Jj clamp and in the common carotid artery by the Rumel tourniquet. | |Endarterectomy was then performed with eversion endarterectomy of the | |external carotid artery. Good backbleeding was demonstrated from the | |external carotid. The internal carotid artery plaque feathered nicely, and | |the endpoint was prophylactically tacked with several interrupted 7-0 | |Prolene sutures. All remaining fronds from the endarterectomy surface were | |removed. The luminal surface was thoroughly irrigated with heparinized | |saline solution. A bovine pericardium patch was then sewed in place with | |running 6-0 Prolene suture. Prior to tying down the last stitches, the | |shunt was removed with good demonstrated backbleeding from the internal and | |external carotid arteries and good forward bleeding from the common carotid | |artery. The luminal surface was once again irrigated with heparinized | |saline solution and the suture line closed. Flow was then restored | |first to the external and then to the internal carotid artery. There were | |1 or 2 small hemostatic stitches required to ensure hemostasis at the | |suture line. The heparin was reversed with 40 mg of intravenous protamine. | |Hemostasis was completed with the use of electrocautery and the wound | |thoroughly irrigated with antibiotic solution. Continuous-wave Doppler | |demonstrated excellent Doppler signals in the internal, external, and | |common carotid arteries, and there were excellent pulses in these vessels. | |The wound was then closed by closing the platysma with running 3-0 Vicryl | |suture and the skin with 4-0 Biosyn. Dermabond was applied. She was | |awakened in the operating room without neurologic deficit and transferred | |to the recovery area in stable condition. She seemed to tolerate the | |procedure well. | | | | | | | | | |TRU BARROSO MD | |undercover operator | | | | | |[facility] / | |[id number] / [id number] / [id number] / | | | | | | | | | | | | | | | | | | | | | + + ANESTHESIA/SEDATION (11/20/2009 12:00 AM PDT) + + + | Narrative | Performed At | + + + | | | + + + + + | Procedure Note | + + | Other, Faculty - 11/20/2009 12:00 AM PDT | | | + + ANESTHESIA/SEDATION (11/20/2009 12:00 AM PDT) + + + | Narrative | Performed At | + + + | | | + + + + + | Procedure Note | + + | Other, Faculty - 11/20/2009 12:00 AM PDT | | | + + ANESTHESIA/SEDATION (11/20/2009 12:00 AM PDT) + + + | Narrative | Performed At | + + + | | | + + + + + | Procedure Note | + + | Other, Faculty - 11/20/2009 12:00 AM PDT | | | + + SURGICAL PATHOLOGY (11/20/2009) + + + + + + | Component | Value | Ref Range | Performed | Pathologist | | | | | At | Signature | + + + + + + | SURGICAL | SOURCE OF SPECIMEN:A Rt | | [facility] | | | PATHOLOGY | carotid endarterectomy | | DEPARTMENT | | | | Final Pathologic | | OF | | | | Diagnosis:Right carotid, | | PATHOLOGY | | | | endarterectomy: - | | | | | | Atherosclerotic plaque | | | | | | Case seen | | | | | | by:Lara Ochoa, | | | | | | M.D./Surgical Pathology | | | | | | Haider Sommer, | | | | | | M.Rolando/PathologistT:11/23/19 | | | | | | 10:tp Clinical | | | | | | History:The patient is a | | | | | | 54-year-old female with | | | | | | right carotid stenosis, | | | | | | TIA,tobacco, | | | | | | hypertension (HTN), | | | | | | hyperlipidemia. | | | | | | Gross | | | | | | Description:Received is | | | | | | 1 specimen fresh in a | | | | | | container labeled with | | | | | | the patient | | | | | | name(initials VF) and | | | | | | "right carotid | | | | | | endarterectomy." | | | | | | Received is | | | | | | anunoriented piece o | | | | | | vasquez-white, fibrous | | | | | | tissue measuring 3 x 1 x | | | | | | 0.3 cm.Scattered | | | | | | calcifications are | | | | | | noted. The entire | | | | | | specimen is submitted. | | | | | | Cassette Index:A1, | | | | | | decalcification | | | | | | performedGDW:tp My | | | | | | electronic signature | | | | | | indicates that I have | | | | | | personally reviewed | | | | | | alldiagnostic slides, | | | | | | the gross and/or | | | | | | microscopic portion of | | | | | | thisreport and | | | | | | formulated the final | | | | | | diagnosis. | | | | | | Rendering Diagnostician: | | | | | | Rafat Sommer | | | | | | JohnathanPathologistAshleyi | | | | | | jaleesa Signed 11/23/2009 | | | | + + + + + + + + | Specimen | + + | Other | + + + + + + + | Performing | Address | City/State/Zipcode | Phone Number | | Organization | | | | + + + + + | [facility] | [address] | [place] [address] | | | PATHOLOGY | [address] | | | + + + + + CARDIOLOGY (11/20/2009 12:00 AM PDT) + + + | Narrative | Performed At | + + + | | | + + + + + | Procedure Note | + + | Other, Faculty - 06/03/2010 11:22 PM PDT | | | + + DIFFERENTIAL (11/19/2009 6:08 AM PDT) + +-------+ + + + | Component | Value | Ref Range | Performed | Pathologist | | | | | At | Signature | + +-------+ + + + | NEUTROPHIL | 52 | 50 - 70 % | [facility] | | | % | | | DEPARTMENT | | | | | | OF | | | | | | PATHOLOGY | | + +-------+ + + + | LYMPHOCYTE | 32 | 18 - 42 % | [facility] | | | % | | | DEPARTMENT | | | | | | OF | | | | | | PATHOLOGY | | + +-------+ + + + | MONOCYTE % | 9 (H) | 2 - 8 % | [facility] | | | | | | DEPARTMENT | | | | | | OF | | | | | | PATHOLOGY | | + +-------+ + + + | EOS % | 6 (H) | 1 - 3 % | [facility] | | | | | | DEPARTMENT | | | | | | OF | | | | | | PATHOLOGY | | + +-------+ + + + | BASO % | 1 | <3 % | [facility] | | | | | | DEPARTMENT | | | | | | OF | | | | | | PATHOLOGY | | + +-------+ + + + | NEUTROPHIL | 3.4 | 1.8 - 7.7 K/cu | [facility] | | | # | | mm | DEPARTMENT | | | | | | OF | | | | | | PATHOLOGY | | + +-------+ + + + | LYMPHOCYTE | 2.1 | 1.0 - 4.8 K/cu | [facility] | | | # | | mm | DEPARTMENT | | | | | | OF | | | | | | PATHOLOGY | | + +-------+ + + + | MONOCYTE # | 0.6 | <0.9 K/cu mm | [facility] | | | | | | DEPARTMENT | | | | | | OF | | | | | | PATHOLOGY | | + +-------+ + + + | EOS # | 0.4 | <0.6 K/cu mm | [facility] | | | | | | DEPARTMENT | | | | | | OF | | | | | | PATHOLOGY | | + +-------+ + + + | BASO # | 0.1 | <0.3 | [facility] | | | | | | DEPARTMENT | | | | | | OF | | | | | | PATHOLOGY | | + +-------+ + + + + + | Specimen | + + | | + + + + + + + | Performing | Address | City/State/Zipcode | Phone Number | | Organization | | | | + + + + + | [facility] DEPARTMENT OF | [address] | [place] [address] | | | PATHOLOGY | [address] | | | + + + + + PHOSPHORUS, PLASMA (11/19/2009 6:08 AM PDT) + +-------+ + + + | Component | Value | Ref Range | Performed | Pathologist | | | | | At | Signature | + +-------+ + + + | PHOSPHORUS, | 4.7 | 2.4 - 4.7 mg/dL | [facility] | | | PLASMA | | | DEPARTMENT | | | (LAB) | | | OF | | | | | | PATHOLOGY | | + +-------+ + + + + + | Specimen | + + | Blood - Blood | + + + + + + + | Performing | Address | City/State/Zipcode | Phone Number | | Organization | | | | + + + + + | [facility] | [address] | [place] [address] | | | PATHOLOGY | [address] | | | + + + + + MAGNESIUM, PLASMA (11/19/2009 6:08 AM PDT) + +-------+ + + + | Component | Value | Ref Range | Performed | Pathologist | | | | | At | Signature | + +-------+ + + + | MAGNESIUM,P | 2.4 | 1.8 - 2.5 mg/dL | [facility] | | | LASMA | | | DEPARTMENT | | | | | | OF | | | | | | PATHOLOGY | | + +-------+ + + + + + | Specimen | + + | Blood - Blood | + + + + + + + | Performing | Address | City/State/Zipcode | Phone Number | | Organization | | | | + + + + + | [facility] DEPARTMENT OF | [address] | [place] [address] | | | PATHOLOGY | [address] | | | + + + + + CBC, WITH DIFFERENTIAL (11/19/2009 6:08 AM PDT) + + + + + + | Component | Value | Ref Range | Performed | Pathologist | | | | | At | Signature | + + + + + + | WHITE CELL | 6.5 | 4.4 - 11.0 K/cu | [facility] | | | COUNT | | mm | DEPARTMENT | | | | | | OF | | | | | | PATHOLOGY | | + + + + + + | RED CELL | 3.84 (L) | 4.00 - 5.20 | [facility] | | | COUNT | | M/cu mm | DEPARTMENT | | | | | | OF | | | | | | PATHOLOGY | | + + + + + + | HEMOGLOBIN | 12.8 | 12.0 - 16.0 | [facility] | | | | | g/dL | DEPARTMENT | | | | | | OF | | | | | | PATHOLOGY | | + + + + + + | HEMATOCRIT | 37.3 | 36.0 - 46.0 % | [facility] | | | | | | DEPARTMENT | | | | | | OF | | | | | | PATHOLOGY | | + + + + + + | MCV | 97.2 (H) | 80.0 - 96.0 fL | [facility] | | | | | | DEPARTMENT | | | | | | OF | | | | | | PATHOLOGY | | + + + + + + | MCHC | 34.3 | 33.4 - 35.5 | [facility] | | | | | g/dL | DEPARTMENT | | | | | | OF | | | | | | PATHOLOGY | | + + + + + + | RDW | 14.2 | 11.5 - 15.0 % | [facility] | | | | | | DEPARTMENT | | | | | | OF | | | | | | PATHOLOGY | | + + + + + + | PLATELET | 260 | 150 - 400 K/cu | [facility] | | | COUNT | | mm | DEPARTMENT | | | | | | OF | | | | | | PATHOLOGY | | + + + + + + + + | Specimen | + + | Blood - Blood | + + + + + + + | Performing | Address | City/State/Zipcode | Phone Number | | Organization | | | | + + + + + | [facility] DEPARTMENT OF | [address] | [place] [address] | | | PATHOLOGY | [address] | | | + + + + + BASIC METABOLIC SET (NA, K, CL, TCO2, BUN, CR, GLU, CA) (11/19/2009 6:08 AM PDT) + +---------+ + + + | Component | Value | Ref Range | Performed | Pathologist | | | | | At | Signature | + +---------+ + + + | GLUCOSE, | 98 | 60 - 99 mg/dL | [facility] | | | PLASMA | | | DEPARTMENT | | | (LAB) | | | OF | | | | | | PATHOLOGY | | + +---------+ + + + | BUN, PLASMA | 17 | 6 - 20 mg/dL | [facility] | | | (LAB) | | | DEPARTMENT | | | | | | OF | | | | | | PATHOLOGY | | + +---------+ + + + | CREATININE | 0.83 | 0.60 - 1.10 | [facility] | | | PLASMA | | mg/dL | DEPARTMENT | | | (LAB) | | | OF | | | | | | PATHOLOGY | | + +---------+ + + + | SODIUM, | 140 | 134 - 143 | [facility] | | | PLASMA | | mmol/L | DEPARTMENT | | | (LAB) | | | OF | | | | | | PATHOLOGY | | + +---------+ + + + | POTASSIUM, | 4.0 | 3.4 - 5.0 | [facility] | | | PLASMA | | mmol/L | DEPARTMENT | | | (LAB) | | | OF | | | | | | PATHOLOGY | | + +---------+ + + + | CHLORIDE, | 109 (H) | 97 - 108 mmol/L | [facility] | | | PLASMA | | | DEPARTMENT | | | (LAB) | | | OF | | | | | | PATHOLOGY | | + +---------+ + + + | CALCIUM, | 8.9 | 8.6 - 10.2 | [facility] | | | PLASMA | | mg/dL | DEPARTMENT | | | (LAB) | | | OF | | | | | | PATHOLOGY | | + +---------+ + + + | TOTAL CO2, | 25 | 23 - 31 mmol/L | [facility] | | | PLASMA | | | DEPARTMENT | | | (LAB) | | | OF | | | | | | PATHOLOGY | | + +---------+ + + + + + | Specimen | + + | Blood - Blood | + + + + + + + | Performing | Address | City/State/Zipcode | Phone Number | | Organization | | | | + + + + + | [facility] DE[facility]MENT [facility] | [address] | [place] [address] | | | PATHOLOGY | [address] | | | + + + + + INR (11/19/2009 6:08 AM PDT) + + + + + + | Component | Value | Ref Range | Performed | Pathologist | | | | | At | Signature | + + + + + + | INR | 1.02Comment: | 0.90 - 1.20 INR | [facility] | | | | INR Therapeutic ranges | | DEPARTMENT | | | | for full | | OF | | | | anticoagulation: | | PATHOLOGY | | | | INR for Venous | | | | | | Thromboembolism | | | | | | (2.0-3.0) | | | | | | INR INR for most | | | | | | patients with mech. | | | | | | valves (2.5-3.5) | | | | | | INR | | | | + + + + + + + + | Specimen | + + | Blood - Blood | + + + + + + + | Performing | Address | City/State/Zipcode | Phone Number | | Organization | | | | + + + + + | [facility] | [address] | [place] [address] | | | PATHOLOGY | [address] | | | + + + + + TYPE AND SCREEN (11/18/2009 10:42 AM PDT) + + + + + + | Component | Value | Ref Range | Performed | Pathologist | | | | | At | Signature | + + + + + + | Antibody | Negative | | [facility] | | | Screen | | | DEPARTMENT | | | | | | OF | | | | | | PATHOLOGY | | + + + + + + | ABO GROUP | A | | [facility] | | | | | | DEPARTMENT | | | | | | OF | | | | | | PATHOLOGY | | + + + + + + | RH TYPE | Positive | | [facility] | | | | | | DEPARTMENT | | | | | | OF | | | | | | PATHOLOGY | | + + + + + + + + | Specimen | + + | Blood - Blood | + + + + + + + | Performing | Address | City/State/Zipcode | Phone Number | | Organization | | | | + + + + + | [facility] DE[facility]MENT | [address] | [place] [address] | | | PATHOLOGY | [address] | | | + + + + + DIFFERENTIAL (11/18/2009 6:22 AM PDT) + +--------+ + + + | Component | Value | Ref Range | Performed | Pathologist | | | | | At | Signature | + +--------+ + + + | NEUTROPHIL | 46 (L) | 50 - 70 % | [facility] | | | % | | | DEPARTMENT | | | | | | OF | | | | | | PATHOLOGY | | + +--------+ + + + | LYMPHOCYTE | 38 | 18 - 42 % | [facility] | | | % | | | DEPARTMENT | | | | | | OF | | | | | | PATHOLOGY | | + +--------+ + + + | MONOCYTE % | 10 (H) | 2 - 8 % | [facility] | | | | | | DEPARTMENT | | | | | | OF | | | | | | PATHOLOGY | | + +--------+ + + + | EOS % | 4 (H) | 1 - 3 % | [facility] | | | | | | DEPARTMENT | | | | | | OF | | | | | | PATHOLOGY | | + +--------+ + + + | BASO % | 1 | <3 % | [facility] | | | | | | DEPARTMENT | | | | | | OF | | | | | | PATHOLOGY | | + +--------+ + + + | NEUTROPHIL | 3.0 | 1.8 - 7.7 K/cu | [facility] | | | # | | mm | DEPARTMENT | | | | | | OF | | | | | | PATHOLOGY | | + +--------+ + + + | LYMPHOCYTE | 2.5 | 1.0 - 4.8 K/cu | [facility] | | | # | | mm | DEPARTMENT | | | | | | OF | | | | | | PATHOLOGY | | + +--------+ + + + | MONOCYTE # | 0.7 | <0.9 K/cu mm | [facility] | | | | | | DEPARTMENT | | | | | | OF | | | | | | PATHOLOGY | | + +--------+ + + + | EOS # | 0.3 | <0.6 K/cu mm | [facility] | | | | | | DEPARTMENT | | | | | | OF | | | | | | PATHOLOGY | | + +--------+ + + + | BASO # | 0.1 | <0.3 | [facility] | | | | | | DEPARTMENT | | | | | | OF | | | | | | PATHOLOGY | | + +--------+ + + + + + | Specimen | + + | | + + + + + + + | Performing | Address | City/State/Zipcode | Phone Number | | Organization | | | | + + + + + | [facility] DEPARTMENT | [address] | [place] [address] | | | PATHOLOGY | [address] | | | + + + + + PHOSPHORUS, PLASMA (11/18/2009 6:22 AM PDT) + +---------+ + + + | Component | Value | Ref Range | Performed | Pathologist | | | | | At | Signature | + +---------+ + + + | PHOSPHORUS, | 5.3 (H) | 2.4 - 4.7 mg/dL | [facility] | | | PLASMA | | | DEPARTMENT | | | (LAB) | | | OF | | | | | | PATHOLOGY | | + +---------+ + + + + + | Specimen | + + | Blood - Blood | + + + + + + + | Performing | Address | City/State/Zipcode | Phone Number | | Organization | | | | + + + + + | [facility] DEPARTMENT OF | [address] | [place] [address] | | | PATHOLOGY | [address] | | | + + + + + MAGNESIUM, PLASMA (11/18/2009 6:22 AM PDT) + +-------+ + + + | Component | Value | Ref Range | Performed | Pathologist | | | | | At | Signature | + +-------+ + + + | MAGNESIUM,P | 2.3 | 1.8 - 2.5 mg/dL | [facility] | | | LASMA | | | DEPARTMENT | | | | | | OF | | | | | | PATHOLOGY | | + +-------+ + + + + + | Specimen | + + | Blood - Blood | + + + + + + + | Performing | Address | City/State/Zipcode | Phone Number | | Organization | | | | + + + + + | [facility] DE[facility]MENT [facility] | [address] | [place] [address] | | | PATHOLOGY | [address] | | | + + + + + CBC, WITH DIFFERENTIAL (11/18/2009 6:22 AM PDT) + + + + + + | Component | Value | Ref Range | Performed | Pathologist | | | | | At | Signature | + + + + + + | WHITE CELL | 6.6 | 4.4 - 11.0 K/cu | [facility] | | | COUNT | | mm | DEPARTMENT | | | | | | OF | | | | | | PATHOLOGY | | + + + + + + | RED CELL | 3.80 (L) | 4.00 - 5.20 | [facility] | | | COUNT | | M/cu mm | DEPARTMENT | | | | | | OF | | | | | | PATHOLOGY | | + + + + + + | HEMOGLOBIN | 12.5 | 12.0 - 16.0 | [facility] | | | | | g/dL | DEPARTMENT | | | | | | OF | | | | | | PATHOLOGY | | + + + + + + | HEMATOCRIT | 37.1 | 36.0 - 46.0 % | [facility] | | | | | | DEPARTMENT | | | | | | OF | | | | | | PATHOLOGY | | + + + + + + | MCV | 97.7 (H) | 80.0 - 96.0 fL | [facility] | | | | | | DEPARTMENT | | | | | | OF | | | | | | PATHOLOGY | | + + + + + + | MCHC | 33.7 | 33.4 - 35.5 | [facility] | | | | | g/dL | DEPARTMENT | | | | | | OF | | | | | | PATHOLOGY | | + + + + + + | RDW | 14.0 | 11.5 - 15.0 % | [facility] | | | | | | DEPARTMENT | | | | | | OF | | | | | | PATHOLOGY | | + + + + + + | PLATELET | 260 | 150 - 400 K/cu | [facility] | | | COUNT | | mm | DEPARTMENT | | | | | | OF | | | | | | PATHOLOGY | | + + + + + + + + | Specimen | + + | Blood - Blood | + + + + + + + | Performing | Address | City/State/Zipcode | Phone Number | | Organization | | | | + + + + + | [facility] DEPARTMENT OF | [address] | [place] [address] | | | PATHOLOGY | [address] | | | + + + + + BASIC METABOLIC SET (NA, K, CL, TCO2, BUN, CR, GLU, CA) (11/18/2009 6:22 AM PDT) + +-------+ + + + | Component | Value | Ref Range | Performed | Pathologist | | | | | At | Signature | + +-------+ + + + | GLUCOSE, | 95 | 60 - 99 mg/dL | [facility] | | | PLASMA | | | DEPARTMENT | | | (LAB) | | | OF | | | | | | PATHOLOGY | | + +-------+ + + + | BUN, PLASMA | 19 | 6 - 20 mg/dL | [facility] | | | (LAB) | | | DEPARTMENT | | | | | | OF | | | | | | PATHOLOGY | | + +-------+ + + + | CREATININE | 0.95 | 0.60 - 1.10 | [facility] | | | PLASMA | | mg/dL | DEPARTMENT | | | (LAB) | | | OF | | | | | | PATHOLOGY | | + +-------+ + + + | SODIUM, | 142 | 134 - 143 | [facility] | | | PLASMA | | mmol/L | DEPARTMENT | | | (LAB) | | | OF | | | | | | PATHOLOGY | | + +-------+ + + + | POTASSIUM, | 4.3 | 3.4 - 5.0 | [facility] | | | PLASMA | | mmol/L | DEPARTMENT | | | (LAB) | | | OF | | | | | | PATHOLOGY | | + +-------+ + + + | CHLORIDE, | 108 | 97 - 108 mmol/L | [facility] | | | PLASMA | | | DEPARTMENT | | | (LAB) | | | OF | | | | | | PATHOLOGY | | + +-------+ + + + | CALCIUM, | 8.7 | 8.6 - 10.2 | [facility] | | | PLASMA | | mg/dL | DEPARTMENT | | | (LAB) | | | OF | | | | | | PATHOLOGY | | + +-------+ + + + | TOTAL CO2, | 28 | 23 - 31 mmol/L | [facility] | | | PLASMA | | | DEPARTMENT | | | (LAB) | | | OF | | | | | | PATHOLOGY | | + +-------+ + + + + + | Specimen | + + | Blood - Blood | + + + + + + + | Performing | Address | City/State/Zipcode | Phone Number | | Organization | | | | + + + + + | [facility] DE[facility]MENT [facility] | [address] | [place] [address] | | | PATHOLOGY | [address] | | | + + + + + TRANSTHORACIC ECHOCARDIOGRAM, ADULT (11/18/2009 12:00 AM PDT) + + + | Narrative | Performed At | + + + | | | + + + + + | Procedure Note | + + | Rory Fabian - 11/18/2009 12:00 AM PDT | | | + + DIFFERENTIAL (11/17/2009 5:57 AM PDT) + +--------+ + + + | Component | Value | Ref Range | Performed | Pathologist | | | | | At | Signature | + +--------+ + + + | NEUTROPHIL | 46 (L) | 50 - 70 % | [facility] | | | % | | | DEPARTMENT | | | | | | OF | | | | | | PATHOLOGY | | + +--------+ + + + | LYMPHOCYTE | 39 | 18 - 42 % | [facility] | | | % | | | DEPARTMENT | | | | | | OF | | | | | | PATHOLOGY | | + +--------+ + + + | MONOCYTE % | 11 (H) | 2 - 8 % | [facility] | | | | | | DEPARTMENT | | | | | | OF | | | | | | PATHOLOGY | | + +--------+ + + + | EOS % | 4 (H) | 1 - 3 % | [facility] | | | | | | DEPARTMENT | | | | | | OF | | | | | | PATHOLOGY | | + +--------+ + + + | BASO % | 1 | <3 % | [facility] | | | | | | DEPARTMENT | | | | | | OF | | | | | | PATHOLOGY | | + +--------+ + + + | NEUTROPHIL | 3.1 | 1.8 - 7.7 K/cu | [facility] | | | # | | mm | DEPARTMENT | | | | | | OF | | | | | | PATHOLOGY | | + +--------+ + + + | LYMPHOCYTE | 2.6 | 1.0 - 4.8 K/cu | [facility] | | | # | | mm | DEPARTMENT | | | | | | OF | | | | | | PATHOLOGY | | + +--------+ + + + | MONOCYTE # | 0.7 | <0.9 K/cu mm | [facility] | | | | | | DEPARTMENT | | | | | | OF | | | | | | PATHOLOGY | | + +--------+ + + + | EOS # | 0.3 | <0.6 K/cu mm | [facility] | | | | | | DEPARTMENT | | | | | | OF | | | | | | PATHOLOGY | | + +--------+ + + + | BASO # | 0.1 | <0.3 | [facility] | | | | | | DEPARTMENT | | | | | | OF | | | | | | PATHOLOGY | | + +--------+ + + + + + | Specimen | + + | | + + + + + + + | Performing | Address | City/State/Zipcode | Phone Number | | Organization | | | | + + + + + | [facility] DEPARTMENT OF | [address] | [place] [address] | | | PATHOLOGY | [address] | | | + + + + + PHOSPHORUS, PLASMA (11/17/2009 5:57 AM PDT) + +-------+ + + + | Component | Value | Ref Range | Performed | Pathologist | | | | | At | Signature | + +-------+ + + + | PHOSPHORUS, | 3.7 | 2.4 - 4.7 mg/dL | [facility] | | | PLASMA | | | DEPARTMENT | | | (LAB) | | | OF | | | | | | PATHOLOGY | | + +-------+ + + + + + | Specimen | + + | Blood - Blood | + + + + + + + | Performing | Address | City/State/Zipcode | Phone Number | | Organization | | | | + + + + + | [facility] DEPARTMENT OF | [address] | [place] [address] | | | PATHOLOGY | [address] | | | + + + + + MAGNESIUM, PLASMA (11/17/2009 5:57 AM PDT) + +-------+ + + + | Component | Value | Ref Range | Performed | Pathologist | | | | | At | Signature | + +-------+ + + + | MAGNESIUM,P | 2.3 | 1.8 - 2.5 mg/dL | [facility] | | | LASMA | | | DEPARTMENT | | | | | | OF | | | | | | PATHOLOGY | | + +-------+ + + + + + | Specimen | + + | Blood - Blood | + + + + + + + | Performing | Address | City/State/Zipcode | Phone Number | | Organization | | | | + + + + + | [facility] | [address] | [place] [address] | | | PATHOLOGY | [address] | | | + + + + + CBC, WITH DIFFERENTIAL (11/17/2009 5:57 AM PDT) + + + + + + | Component | Value | Ref Range | Performed | Pathologist | | | | | At | Signature | + + + + + + | WHITE CELL | 6.7 | 4.4 - 11.0 K/cu | [facility] | | | COUNT | | mm | DEPARTMENT | | | | | | OF | | | | | | PATHOLOGY | | + + + + + + | RED CELL | 3.72 (L) | 4.00 - 5.20 | [facility] | | | COUNT | | M/cu mm | DEPARTMENT | | | | | | OF | | | | | | PATHOLOGY | | + + + + + + | HEMOGLOBIN | 12.2 | 12.0 - 16.0 | [facility] | | | | | g/dL | DEPARTMENT | | | | | | OF | | | | | | PATHOLOGY | | + + + + + + | HEMATOCRIT | 36.0 | 36.0 - 46.0 % | [facility] | | | | | | DEPARTMENT | | | | | | OF | | | | | | PATHOLOGY | | + + + + + + | MCV | 97.0 (H) | 80.0 - 96.0 fL | [facility] | | | | | | DEPARTMENT | | | | | | OF | | | | | | PATHOLOGY | | + + + + + + | MCHC | 33.9 | 33.4 - 35.5 | [facility] | | | | | g/dL | DEPARTMENT | | | | | | OF | | | | | | PATHOLOGY | | + + + + + + | RDW | 14.6 | 11.5 - 15.0 % | [facility] | | | | | | DEPARTMENT | | | | | | OF | | | | | | PATHOLOGY | | + + + + + + | PLATELET | 256 | 150 - 400 K/cu | [facility] | | | COUNT | | mm | DEPARTMENT | | | | | | OF | | | | | | PATHOLOGY | | + + + + + + + + | Specimen | + + | Blood - Blood | + + + + + + + | Performing | Address | City/State/Zipcode | Phone Number | | Organization | | | | + + + + + | [facility] | [address] | [place] [address] | | | PATHOLOGY | [address] | | | + + + + + BASIC METABOLIC SET (NA, K, CL, TCO2, BUN, CR, GLU, CA) (11/17/2009 5:57 AM PDT) + +---------+ + + + | Component | Value | Ref Range | Performed | Pathologist | | | | | At | Signature | + +---------+ + + + | GLUCOSE, | 97 | 60 - 99 mg/dL | [facility] | | | PLASMA | | | DEPARTMENT | | | (LAB) | | | OF | | | | | | PATHOLOGY | | + +---------+ + + + | BUN, PLASMA | 11 | 6 - 20 mg/dL | [facility] | | | (LAB) | | | DEPARTMENT | | | | | | OF | | | | | | PATHOLOGY | | + +---------+ + + + | CREATININE | 0.79 | 0.60 - 1.10 | [facility] | | | PLASMA | | mg/dL | DEPARTMENT | | | (LAB) | | | OF | | | | | | PATHOLOGY | | + +---------+ + + + | SODIUM, | 138 | 134 - 143 | [facility] | | | PLASMA | | mmol/L | DEPARTMENT | | | (LAB) | | | OF | | | | | | PATHOLOGY | | + +---------+ + + + | POTASSIUM, | 3.8 | 3.4 - 5.0 | [facility] | | | PLASMA | | mmol/L | DEPARTMENT | | | (LAB) | | | OF | | | | | | PATHOLOGY | | + +---------+ + + + | CHLORIDE, | 110 (H) | 97 - 108 mmol/L | [facility] | | | PLASMA | | | DEPARTMENT | | | (LAB) | | | OF | | | | | | PATHOLOGY | | + +---------+ + + + | CALCIUM, | 8.4 (L) | 8.6 - 10.2 | [facility] | | | PLASMA | | mg/dL | DEPARTMENT | | | (LAB) | | | OF | | | | | | PATHOLOGY | | + +---------+ + + + | TOTAL CO2, | 24 | 23 - 31 mmol/L | [facility] | | | PLASMA | | | DEPARTMENT | | | (LAB) | | | OF | | | | | | PATHOLOGY | | + +---------+ + + + + + | Specimen | + + | Blood - Blood | + + + + + + + | Performing | Address | City/State/Zipcode | Phone Number | | Organization | | | | + + + + + | [facility] | [address] | [place] [address] | | | PATHOLOGY | [address] | | | + + + + + RESP CARE THERAPY (11/17/2009 2:56 AM PDT) + + + + + + | Component | Value | Ref Range | Performed | Pathologist | | | | | At | Signature | + + + + + + | RESPIRATORY | Oxygen device on | | [facility] | | | CARE | standby, nasal | | RESPIRATORY | | | | canula.Electronically | | THERAPY | | | | Signed by: Rylee | | | | | | GONZALEZ Puente | | | | + + + + + + + + | Specimen | + + | | + + + + + + + | Performing | Address | City/State/Zipcode | Phone Number | | Organization | | | | + + + + + | [facility] | [address] | [place] | | | THERAPY | [address] | [address] | | + + + + + CT CTA NECK WITH CONTRAST (11/16/2009 10:50 PM PDT) + + + + + + | Component | Value | Ref Range | Performed | Pathologist | | | | | At | Signature | + + + + + + | CT CTA NECK | EXAM: CT angiogram neck | | | | | W CONTRAST | and head HISTORY: | | | | | | Bilateral carotid | | | | | | stenoses TECHNIQUE: | | | | | | Noncontrast head CT. | | | | | | Helical images through | | | | | | the neck andhead after | | | | | | the uneventful | | | | | | intravenous | | | | | | administration of 100 cc | | | | | | ofVisipaque 320. | | | | | | Sagittal and coronal | | | | | | reconstructions were | | | | | | alsoreviewed with 3-D | | | | | | images as needed. | | | | | | COMPARISON: Carotid | | | | | | ultrasound 11/16/09 | | | | | | FINDINGS: Noncontrast CT | | | | | | head shows no evidence | | | | | | of mass | | | | | | mass-effectmidline shift | | | | | | acute infarct | | | | | | hydrocephalus or acute | | | | | | hemorrhage.Ventricles | | | | | | sulci and cisterns are | | | | | | maintained. Calvarium | | | | | | appearsintact. Arch | | | | | | anatomy appears | | | | | | conventional. A small | | | | | | amount of | | | | | | atheroscleroticcalcifica | | | | | | tion is present at the | | | | | | right subclavian artery | | | | | | and leftsubclavian | | | | | | artery origins. Common | | | | | | carotid arteries appear | | | | | | widelypatent. On the | | | | | | right, there is | | | | | | calcified plaque at the | | | | | | carotid bifurcationand, | | | | | | and a moderate to | | | | | | high-grade stenosis over | | | | | | a distance of about 1cm | | | | | | located just beyond the | | | | | | bifurcation. Compared | | | | | | to the distalnormal | | | | | | vessel, the highest | | | | | | grade area of stenosis | | | | | | is probably in therange | | | | | | of 80+ percent. | | | | | | Distally, the right | | | | | | internal carotid artery | | | | | | iswidely patent with a | | | | | | small amount of | | | | | | calcification in the | | | | | | cavernoussegment. On the | | | | | | left, the internal | | | | | | carotid artery is | | | | | | completely occluded | | | | | | atits origin due to | | | | | | calcified and soft | | | | | | plaque. Both vertebral | | | | | | arteries appear patent | | | | | | without high-grade | | | | | | stenoses,although the | | | | | | left proximal vertebral | | | | | | artery origin is | | | | | | somewhatobscured by | | | | | | streak artifact from | | | | | | dense in flowing venous | | | | | | contrast. Head CTA | | | | | | findings: No evidence of | | | | | | aneurysm or | | | | | | hemodynamicallysignifica | | | | | | nt stenosis. The left | | | | | | A1 segment is relatively | | | | | | hypoplastic. Bilateral | | | | | | posterior communicating | | | | | | arteries are present | | | | | | withrelatively small P1 | | | | | | segments bilaterally. | | | | | | IMPRESSION:1. Occluded | | | | | | left internal carotid | | | | | | artery at its origin. 2. | | | | | | Moderate to | | | | | | high-grade stenosis of | | | | | | the right internal | | | | | | carotidartery over a | | | | | | short segment about one | | | | | | to 2 cm distal to the | | | | | | origin.Stenosis is | | | | | | probably in the range of | | | | | | 80+ percent compared to | | | | | | distalnormal vessel. I | | | | | | have personally viewed | | | | | | this procedure/exam and | | | | | | reviewed this report. | | | | | | Author: RAYMOND PRINCE | | | | | | JohnathanReviewer: RAYMOND | | | | | | Johnathan PRINCE STATUS | | | | | | FINAL / Dr. ANDRADE | | | | | | SURESH | | | | + + + + + + + + | Specimen | + + | | + + + +---------+ + + | Performing | Address | City/State/Zipcode | Phone Number | | Organization | | | | + +---------+ + + | [facility] DEPARTMENT OF | | | | | RADIOLOGY | | | | + +---------+ + + CT CTA HEAD WITH CONTRAST (11/16/2009 10:50 PM PDT) + + + + + + | Component | Value | Ref Range | Performed | Pathologist | | | | | At | Signature | + + + + + + | CT CTA HEAD | EXAM: CT angiogram neck | | | | | W CONTRAST | and head HISTORY: | | | | | | Bilateral carotid | | | | | | stenoses TECHNIQUE: | | | | | | Noncontrast head CT. | | | | | | Helical images through | | | | | | the neck andhead after | | | | | | the uneventful | | | | | | intravenous | | | | | | administration of 100 cc | | | | | | ofVisipaque 320. | | | | | | Sagittal and coronal | | | | | | reconstructions were | | | | | | alsoreviewed with 3-D | | | | | | images as needed. | | | | | | COMPARISON: Carotid | | | | | | ultrasound 11/16/09 | | | | | | FINDINGS: Noncontrast CT | | | | | | head shows no evidence | | | | | | of mass | | | | | | mass-effectmidline shift | | | | | | acute infarct | | | | | | hydrocephalus or acute | | | | | | hemorrhage.Ventricles | | | | | | sulci and cisterns are | | | | | | maintained. Calvarium | | | | | | appearsintact. Arch | | | | | | anatomy appears | | | | | | conventional. A small | | | | | | amount of | | | | | | atheroscleroticcalcifica | | | | | | tion is present at the | | | | | | right subclavian artery | | | | | | and leftsubclavian | | | | | | artery origins. Common | | | | | | carotid arteries appear | | | | | | widelypatent. On the | | | | | | right, there is | | | | | | calcified plaque at the | | | | | | carotid bifurcationand, | | | | | | and a moderate to | | | | | | high-grade stenosis over | | | | | | a distance of about 1cm | | | | | | located just beyond the | | | | | | bifurcation. Compared | | | | | | to the distalnormal | | | | | | vessel, the highest | | | | | | grade area of stenosis | | | | | | is probably in therange | | | | | | of 80+ percent. | | | | | | Distally, the right | | | | | | internal carotid artery | | | | | | iswidely patent with a | | | | | | small amount of | | | | | | calcification in the | | | | | | cavernoussegment. On the | | | | | | left, the internal | | | | | | carotid artery is | | | | | | completely occluded | | | | | | atits origin due to | | | | | | calcified and soft | | | | | | plaque. Both vertebral | | | | | | arteries appear patent | | | | | | without high-grade | | | | | | stenoses,although the | | | | | | left proximal vertebral | | | | | | artery origin is | | | | | | somewhatobscured by | | | | | | streak artifact from | | | | | | dense in flowing venous | | | | | | contrast. Head CTA | | | | | | findings: No evidence of | | | | | | aneurysm or | | | | | | hemodynamicallysignifica | | | | | | nt stenosis. The left | | | | | | A1 segment is relatively | | | | | | hypoplastic. Bilateral | | | | | | posterior communicating | | | | | | arteries are present | | | | | | withrelatively small P1 | | | | | | segments bilaterally. | | | | | | IMPRESSION:1. Occluded | | | | | | left internal carotid | | | | | | artery at its origin. 2. | | | | | | Moderate to | | | | | | high-grade stenosis of | | | | | | the right internal | | | | | | carotidartery over a | | | | | | short segment about one | | | | | | to 2 cm distal to the | | | | | | origin.Stenosis is | | | | | | probably in the range of | | | | | | 80+ percent compared to | | | | | | distalnormal vessel. I | | | | | | have personally viewed | | | | | | this procedure/exam and | | | | | | reviewed this report. | | | | | | Author: RAYMOND PRINCE, | | | | | | JohnathanReviewer: RAYMOND | | | | | | Johnathan PRINCE STATUS | | | | | | FINAL / Dr. ANDRADE | | | | | | SURESH | | | | + + + + + + + + | Specimen | + + | | + + + +---------+ + + | Performing | Address | City/State/Zipcode | Phone Number | | Organization | | | | + +---------+ + + | [facility] DEPARTMENT OF | | | | | RADIOLOGY | | | | + +---------+ + + URINE, MICROSCOPIC EXAM (11/16/2009 8:56 PM PDT) + +---------+ + + + | Component | Value | Ref Range | Performed | Pathologist | | | | | At | Signature | + +---------+ + + + | SQUAMOUS | Few (A) | /hpf | [facility] | | | EPITHELIAL | | | DEPARTMENT | | | | | | OF | | | | | | PATHOLOGY | | + +---------+ + + + | NON-SQUAMOU | None | /hpf | [facility] | | | S EPITH | | | DEPARTMENT | | | | | | OF | | | | | | PATHOLOGY | | + +---------+ + + + | RED CELLS | 0-3 | 0 - 3 /hpf | [facility] | | | | | | DEPARTMENT | | | | | | OF | | | | | | PATHOLOGY | | + +---------+ + + + | WHITE CELLS | 10-20 | 0 - 5 /hpf | [facility] | | | | | | DEPARTMENT | | | | | | OF | | | | | | PATHOLOGY | | + +---------+ + + + | BACTERIA | Few (A) | /hpf | [facility] | | | | | | DEPARTMENT | | | | | | OF | | | | | | PATHOLOGY | | + +---------+ + + + | MUCOUS | None | /hpf | [facility] | | | | | | DEPARTMENT | | | | | | OF | | | | | | PATHOLOGY | | + +---------+ + + + | HYALINE | None | 0 - 1 /lpf | [facility] | | | CASTS | | | DEPARTMENT | | | | | | OF | | | | | | PATHOLOGY | | + +---------+ + + + | GRANULAR | None | /lpf | [facility] | | | CASTS | | | DEPARTMENT | | | | | | OF | | | | | | PATHOLOGY | | + +---------+ + + + | CELLULAR | None | /lpf | [facility] | | | CASTS | | | DEPARTMENT | | | | | | OF | | | | | | PATHOLOGY | | + +---------+ + + + | AMORPHOUS | None | /hpf | [facility] | | | CRYSTALS | | | DEPARTMENT | | | | | | OF | | | | | | PATHOLOGY | | + +---------+ + + + | CALCIUM | None | /hpf | [facility] | | | OXALATE | | | DEPARTMENT | | | VIRAL | | | OF | | | | | | PATHOLOGY | | + +---------+ + + + | URIC ACID | None | /hpf | [facility] | | | CRYSTALS | | | DEPARTMENT | | | | | | OF | | | | | | PATHOLOGY | | + +---------+ + + + | TRIPLE P04 | None | /hpf | [facility] | | | CRYSTALS | | | DEPARTMENT | | | | | | OF | | | | | | PATHOLOGY | | + +---------+ + + + | YEAST (LAB) | None | /hpf | [facility] | | | | | | DEPARTMENT | | | | | | OF | | | | | | PATHOLOGY | | + +---------+ + + + | TRICHOMONAS | None | /hpf | [facility] | | | | | | DEPARTMENT | | | | | | OF | | | | | | PATHOLOGY | | + +---------+ + + + + + | Specimen | + + | Urine - Urine | + + + + + + + | Performing | Address | City/State/Zipcode | Phone Number | | Organization | | | | + + + + + | [facility]MENT [facility] | [address] | [place] [address] | | | PATHOLOGY | [address] | | | + + + + + VASC LAB CAROTID DUPLEX COMPLETE BILATERAL (11/16/2009 12:40 PM PDT) + + + + + + | Component | Value | Ref Range | Performed | Pathologist | | | | | At | Signature | + + + + + + | VASC LAB | Med Rec No: | | | | | CAROTID | [id number] Name: | | | | | DUPLEX | DARCY SUN Birthday: | | | | | COMPLETE | 1955 Sex: F | | | | | BILATERAL | Alias: Patient Location: | | | | | | 11KStatus: Inpatient | | | | | | ActiveOrdering | | | | | | Physician: EMI ARROYO, | | | | | | Johnathan WARNER | | | | | | CAROTID DUPLEX COMP MAITE | | | | | | completed on 11/16/2009 | | | | | | 12:40 PMAccession # | | | | | | [id number] | | | | | | RESULT:CEREBROVASCULAR | | | | | | EXAMINATION: | | | | | | 11/16/2009 Dictated | | | | | | 11/18/2009 INDICATION: | | | | | | TIA. FINDINGS: The | | | | | | left arm blood pressure | | | | | | is 150/73 mmHg. | | | | | | Duplexexamination of | | | | | | the carotid bifurcations | | | | | | | | | | | | demonstratesmoderate-to- | | | | | | severe plaquing in the | | | | | | right internal carotid | | | | | | artery andocclusion of | | | | | | the left internal | | | | | | carotid artery. There | | | | | | is minimalplaquing of | | | | | | the external carotid | | | | | | arteries bilaterally. | | | | | | Velocity ofthe right | | | | | | internal carotid artery | | | | | | is 107 cm/sec with a | | | | | | peak enddiastolic | | | | | | velocity of 73 cm/sec. | | | | | | Both vertebral | | | | | | arteries are patentwith | | | | | | antegrade flow. | | | | | | IMPRESSION: 50% to 70% | | | | | | diameter stenosis of the | | | | | | right internal carotid | | | | | | artery.Occlusion of the | | | | | | left internal carotid | | | | | | artery. Greater than | | | | | | 50%diameter reduction of | | | | | | the external carotid | | | | | | arteries bilaterally. | | | | | | END IMPRESSION I have | | | | | | personally viewed this | | | | | | procedure/exam and | | | | | | reviewed this report. | | | | | | STATUS FINAL / Dr. MONTES | | | | | | Aniyah ZAMBRANO | | | | | | PRELIMINARY - UNSIGNED / | | | | | | Cathie Avila | | | | + + + + + + + + | Specimen | + + | | + + + +---------+ + + | Performing | Address | City/State/Zipcode | Phone Number | | Organization | | | | + +---------+ + + | [facility] DEPARTMENT OF | | | | | RADIOLOGY | | | | + +---------+ + + APTT (ACT. PART. THROMBO TIME) (11/16/2009 11:05 AM PDT) + + + + + + | Component | Value | Ref Range | Performed | Pathologist | | | | | At | Signature | + + + + + + | APTT | 28.4Comment: | 26.0 - 36.0 | [facility] | | | | APTT Therapeutic Range | seconds | DEPARTMENT | | | | | | OF | | | | (75-120) | | PATHOLOGY | | | | sec | | | | | | Heparin levels of | | | | | | 0.35-0.7 U/mL | | | | + + + + + + + + | Specimen | + + | Blood - Blood | + + + + + + + | Performing | Address | City/State/Zipcode | Phone Number | | Organization | | | | + + + + + | [facility] | [address] | [place] [address] | | | PATHOLOGY | [address] | | | + + + + + INR (11/16/2009 11:05 AM PDT) + + + + + + | Component | Value | Ref Range | Performed | Pathologist | | | | | At | Signature | + + + + + + | INR | 1.06Comment: | 0.90 - 1.20 INR | [facility] | | | | INR Therapeutic ranges | | DEPARTMENT | | | | for full | | OF | | | | anticoagulation: | | PATHOLOGY | | | | INR for Venous | | | | | | Thromboembolism | | | | | | (2.0-3.0) | | | | | | INR INR for most | | | | | | patients with mech. | | | | | | valves (2.5-3.5) | | | | | | INR | | | | + + + + + + + + | Specimen | + + | Blood - Blood | + + + + + + + | Performing | Address | City/State/Zipcode | Phone Number | | Organization | | | | + + + + + | [facility] | [address] | [place] [address] | | | PATHOLOGY | [address] | | | + + + + + PHOSPHORUS, PLASMA (11/16/2009 11:05 AM PDT) + +-------+ + + + | Component | Value | Ref Range | Performed | Pathologist | | | | | At | Signature | + +-------+ + + + | PHOSPHORUS, | 4.2 | 2.4 - 4.7 mg/dL | [facility] | | | PLASMA | | | DEPARTMENT | | | (LAB) | | | OF | | | | | | PATHOLOGY | | + +-------+ + + + + + | Specimen | + + | Blood - Blood | + + + + + + + | Performing | Address | City/State/Zipcode | Phone Number | | Organization | | | | + + + + + | [facility] | [address] | [place] [address] | | | PATHOLOGY | [address] | | | + + + + + MAGNESIUM, PLASMA (11/16/2009 11:05 AM PDT) + +-------+ + + + | Component | Value | Ref Range | Performed | Pathologist | | | | | At | Signature | + +-------+ + + + | MAGNESIUM,P | 2.3 | 1.8 - 2.5 mg/dL | [facility] | | | LASMA | | | DEPARTMENT | | | | | | OF | | | | | | PATHOLOGY | | + +-------+ + + + + + | Specimen | + + | Blood - Blood | + + + + + + + | Performing | Address | City/State/Zipcode | Phone Number | | Organization | | | | + + + + + | [facility]MENT OF | [address] | [place] [address] | | | PATHOLOGY | [address] | | | + + + + + CBC ONLY (11/16/2009 11:05 AM PDT) + + + + + + | Component | Value | Ref Range | Performed | Pathologist | | | | | At | Signature | + + + + + + | WHITE CELL | 6.4 | 4.4 - 11.0 K/cu | [facility] | | | COUNT | | mm | DEPARTMENT | | | | | | OF | | | | | | PATHOLOGY | | + + + + + + | RED CELL | 3.80 (L) | 4.00 - 5.20 | [facility] | | | COUNT | | M/cu mm | DEPARTMENT | | | | | | OF | | | | | | PATHOLOGY | | + + + + + + | HEMOGLOBIN | 12.8 | 12.0 - 16.0 | [facility] | | | | | g/dL | DEPARTMENT | | | | | | OF | | | | | | PATHOLOGY | | + + + + + + | HEMATOCRIT | 36.5 | 36.0 - 46.0 % | [facility] | | | | | | DEPARTMENT | | | | | | OF | | | | | | PATHOLOGY | | + + + + + + | MCV | 96.0 | 80.0 - 96.0 fL | [facility] | | | | | | DEPARTMENT | | | | | | OF | | | | | | PATHOLOGY | | + + + + + + | MCHC | 35.1 | 33.4 - 35.5 | [facility] | | | | | g/dL | DEPARTMENT | | | | | | OF | | | | | | PATHOLOGY | | + + + + + + | RDW | 13.9 | 11.5 - 15.0 % | [facility] | | | | | | DEPARTMENT | | | | | | OF | | | | | | PATHOLOGY | | + + + + + + | PLATELET | 275 | 150 - 400 K/cu | [facility] | | | COUNT | | mm | DEPARTMENT | | | | | | OF | | | | | | PATHOLOGY | | + + + + + + + + | Specimen | + + | Blood - Blood | + + + + + + + | Performing | Address | City/State/Zipcode | Phone Number | | Organization | | | | + + + + + | [facility] | [address] | [place] [address] | | | PATHOLOGY | [address] | | | + + + + + BASIC METABOLIC SET (NA, K, CL, TCO2, BUN, CR, GLU, CA) (11/16/2009 11:05 AM PDT) + +-------+ + + + | Component | Value | Ref Range | Performed | Pathologist | | | | | At | Signature | + +-------+ + + + | GLUCOSE, | 90 | 60 - 99 mg/dL | [facility] | | | PLASMA | | | DEPARTMENT | | | (LAB) | | | OF | | | | | | PATHOLOGY | | + +-------+ + + + | BUN, PLASMA | 11 | 6 - 20 mg/dL | [facility] | | | (LAB) | | | DEPARTMENT | | | | | | OF | | | | | | PATHOLOGY | | + +-------+ + + + | CREATININE | 0.68 | 0.60 - 1.10 | [facility] | | | PLASMA | | mg/dL | DEPARTMENT | | | (LAB) | | | OF | | | | | | PATHOLOGY | | + +-------+ + + + | SODIUM, | 140 | 134 - 143 | [facility] | | | PLASMA | | mmol/L | DEPARTMENT | | | (LAB) | | | OF | | | | | | PATHOLOGY | | + +-------+ + + + | POTASSIUM, | 4.1 | 3.4 - 5.0 | [facility] | | | PLASMA | | mmol/L | DEPARTMENT | | | (LAB) | | | OF | | | | | | PATHOLOGY | | + +-------+ + + + | CHLORIDE, | 108 | 97 - 108 mmol/L | [facility] | | | PLASMA | | | DEPARTMENT | | | (LAB) | | | OF | | | | | | PATHOLOGY | | + +-------+ + + + | CALCIUM, | 8.8 | 8.6 - 10.2 | [facility] | | | PLASMA | | mg/dL | DEPARTMENT | | | (LAB) | | | OF | | | | | | PATHOLOGY | | + +-------+ + + + | TOTAL CO2, | 23 | 23 - 31 mmol/L | [facility] | | | PLASMA | | | DEPARTMENT | | | (LAB) | | | OF | | | | | | PATHOLOGY | | + +-------+ + + + + + | Specimen | + + | Blood - Blood | + + + + + + + | Performing | Address | City/State/Zipcode | Phone Number | | Organization | | | | + + + + + | [facility] | [address] | [place] [address] | | | PATHOLOGY | [address] | | | + + + + + X-RAY CHEST 2 VIEW (11/16/2009 8:38 AM PDT) + + + + + + | Component | Value | Ref Range | Performed | Pathologist | | | | | At | Signature | + + + + + + | CHEST, 2 | EXAM: PA and lateral | | | | | VIEWS [place] | chest 11/16/09 08:38:00 | | | | | STEREO | CLINICAL HISTORY: Preop | | | | | | COMPARISON: None. | | | | | | FINDINGS: The cardiac | | | | | | and mediastinal contours | | | | | | are normal. Thelungs | | | | | | are clear. There is no | | | | | | pleural effusion or | | | | | | pneumothorax. Theosseous | | | | | | structures are normal. | | | | | | IMPRESSION: Normal exam. | | | | | | I have personally | | | | | | viewed this | | | | | | procedure/exam and | | | | | | reviewed this report. | | | | | | Author: THOMAS MARTINEZ, | | | | | | JohnathanReviewer: BARB | | | | | | Johnathan VANEGAS STATUS | | | | | | FINAL / Dr. BARB VANEGAS | | | | | | | [...] | + +---------+ + + VASC LAB PORTABLE ABDOMINAL DUPLEX LTD ARTERY VEIN (11/16/2009 7:56 AM PDT) + + + + +----- ---------+ | Component | Value | Ref Range | Performed | Path ologist | | | | | At | Sign ature | + + + + +----- ---------+ | VASC LAB | Med Rec No: | | | | | PORTABLE | [id number] Name: | | | | | ABDOMINAL | DARCY SUN Birthday: | | | | | DUPLEX LTD | 1955 Sex: F | | | | | ARTERY VEIN | Alias: Patient Location: | | | | | | 11KStatus: Inpatient | | | | | | ActiveOrdering | | | | | | Physician: EMI ARROYO, | | | | | | M.D. VDABLP VL PORT | | | | | | ABD'L DUP LTD ART/MERVIN | | | | | | completed on 11/16/2009 | | | | | | 7:56 AMAccession # | | | | | | [id number] RESULT:GRAFT | | | | | | FLOW EVALUATION: | | | | | | 11/16/2009 Dictated | | | | | | 11/16/2009 FINDINGS: | | | | | | The ankle brachial | | | | | | indices are 0.95 on the | | | | | | right and 1.03on the | | | | | | left. There is a | | | | | | patent right | | | | | | aortofemoral bypass | | | | | | graft withpeak systolic | | | | | | velocities ranging from | | | | | | 42 to 112 cm/sec. | | | | | | IMPRESSION: Patent graft | | | | | | without stenosis. | | | | | | END IMPRESSION I have | | | | | | personally viewed this | | | | | | procedure/exam and | | | | | | reviewed this report. | | | | | | STATUS FINAL / | | | | | | TRU JUNIOR | | | | | | NEERU PRELIMINARY | | | | | | - UNSIGNED / Cathie | | | | | | Loíza | | | | | | | | | | | |STATUS FINAL / Dr. TRU BAXTER | | | | | |STATUS PRELIMINARY - UNSIGNED / Cathie Loíza | | | | | | | | | | | | | | | | | | | | | | | | | | | | + + + + +----- ---------+ + + | Specimen | + + | | + + + +---------+ + + | Performing | Address | City/State/Zipcode | Phone Number | | Organization | | | | + +---------+ + + | [facility]MENT OF | | | | | RADIOLOGY | | | | + +---------+ + + RESP CARE THERAPY (11/16/2009 5:30 AM PDT) + + + + + + | Component | Value | Ref Range | Performed | Pathologist | | | | | At | Signature | + + + + + + | RESPIRATORY | Oxygen device on | | [facility] | | | CARE | standby, nasal | | RESPIRATORY | | | | canula.Electronically | | THERAPY | | | | Signed by: Kena | | | | | | Luis Armando, | | | | + + + + + + + + | Specimen | + + | | + + + + + + + | Performing | Address | City/State/Zipcode | Phone Number | | Organization | | | | + + + + + | [facility] | [address] | [place], [place] | | | THERAPY | [address] | [phone] | | + + + + + DIFFERENTIAL (11/16/2009 5:19 AM PDT) + +--------+ + + + | Component | Value | Ref Range | Performed | Pathologist | | | | | At | Signature | + +--------+ + + + | NEUTROPHIL | 41 (L) | 50 - 70 % | [facility] | | | % | | | DEPARTMENT | | | | | | OF | | | | | | PATHOLOGY | | + +--------+ + + + | LYMPHOCYTE | 42 | 18 - 42 % | [facility] | | | % | | | DEPARTMENT | | | | | | OF | | | | | | PATHOLOGY | | + +--------+ + + + | MONOCYTE % | 11 (H) | 2 - 8 % | [facility] | | | | | | DEPARTMENT | | | | | | OF | | | | | | PATHOLOGY | | + +--------+ + + + | EOS % | 5 (H) | 1 - 3 % | [facility] | | | | | | DEPARTMENT | | | | | | OF | | | | | | PATHOLOGY | | + +--------+ + + + | BASO % | 1 | <3 % | [facility] | | | | | | DEPARTMENT | | | | | | OF | | | | | | PATHOLOGY | | + +--------+ + + + + + | Specimen | + + | | + + + + + + + | Performing | Address | City/State/Zipcode | Phone Number | | Organization | | | | + + + + + | [facility] | [address] | [place] [address] | | | PATHOLOGY | [address] | | | + + + + + TYPE AND SCREEN (11/16/2009 5:19 AM PDT) + + + + + + | Component | Value | Ref Range | Performed | Pathologist | | | | | At | Signature | + + + + + + | ABO GROUP | A | | [facility] | | | | | | DEPARTMENT | | | | | | OF | | | | | | PATHOLOGY | | + + + + + + | RH TYPE | Positive | | [facility] | | | | | | DEPARTMENT | | | | | | OF | | | | | | PATHOLOGY | | + + + + + + | Antibody | Negative | | [facility] | | | Screen | | | DEPARTMENT | | | | | | OF | | | | | | PATHOLOGY | | + + + + + + + + | Specimen | + + | Blood - Blood | + + + + + + + | Performing | Address | City/State/Zipcode | Phone Number | | Organization | | | | + + + + + | [facility] | [address] | [place] [address] | | | PATHOLOGY | [address] | | | + + + + + RESP CARE THERAPY (11/16/2009 5:09 AM PDT) + + + + + + | Component | Value | Ref Range | Performed | Pathologist | | | | | At | Signature | + + + + + + | RESPIRATORY | : History and | | [facility] | | | CARE | Assessment: TIA | | RESPIRATORY | | | | (TRANSIENT ISCHEMIC | | THERAPY | | | | ATTACK)Pulmonary | | | | | | problems: Current | | | | | | problems include, | | | | | | 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 | | | | | | obstructive pulmonary | | | | | | disease .Smoking | | | | | | history: The patient | | | | | | currently smokes one or | | | | | | more packs per | | | | | | day.Results of recent | | | | | | Chest X-ray: was not | | | | | | available at the time of | | | | | | evaluation.Pain: | | | | | | Patients pain assessed | | | | | | and was a 0 on a scale | | | | | | of 0-10.Oxygen | | | | | | requirement: Patient was | | | | | | on room air with an | | | | | | oxygen saturation of | | | | | | 98%.Heart rate: 72 beats | | | | | | per minuteRespiratory | | | | | | rate: 18 breaths per | | | | | | minuteTemperature: 36.7 | | | | | | ? C.Breathsounds:clear | | | | | | diminished .Cough and | | | | | | sputum | | | | | | production:Patient had a | | | | | | non-productive | | | | | | cough.Treatments | | | | | | GivenMedication Therapy: | | | | | | Medication given via | | | | | | inhaler with Albuterol 2 | | | | | | puffs .Total combined | | | | | | puffs given: 2 | | | | | | puffs.Respiratory Acuity | | | | | | and Protocol PlanA | | | | | | respiratory evaluation | | | | | | has been completed. | | | | | | Based on this | | | | | | assesmentinhaled | | | | | | medication will be | | | | | | delivered by RN, the | | | | | | protocol will | | | | | | bediscontinued.Lis | | | | | | jaleesa Signed by: Kena | | | | | | Luis Armando, | | | | + + + + + + + + | Specimen | + + | | + + + + + + + | Performing | Address | City/State/Zipcode | Phone Number | | Organization | | | | + + + + + | [facility] | [address] | [place], [place] | | | THERAPY | [address] | [address] | | + + + + + 12 LEAD ECG (11/16/2009 2:48 AM PDT) + + + + + + | Component | Value | Ref Range | Performed | Pathologist | | | | | At | Signature | + + + + + + | VENTRICULAR | 63 | BPM | [facility] | | | RATE | | | OF | | | | | | CARDIOLOGY | | + + + + + + | ATRIAL RATE | 63 | BPM | [facility] | | | | | | OF | | | | | | CARDIOLOGY | | + + + + + + | P-R | 182 | ms | [facility] | | | INTERVAL | | | OF | | | | | | CARDIOLOGY | | + + + + + + | QRS | 70 | ms | [facility] | | | DURATION | | | OF | | | | | | CARDIOLOGY | | + + + + + + | QT | 394 | ms | [facility] | | | | | | OF | | | | | | CARDIOLOGY | | + + + + + + | QTC | 403 | ms | [facility] | | | | | | OF | | | | | | CARDIOLOGY | | + + + + + + | P AXIS | 34 | degrees | [facility] | | | | | | OF | | | | | | CARDIOLOGY | | + + + + + + | R AXIS | 29 | degrees | [facility] | | | | | | OF | | | | | | CARDIOLOGY | | + + + + + + | T AXIS | 60 | degrees | [facility] | | | | | | OF | | | | | | CARDIOLOGY | | + + + + + + | EKG | Normal sinus | | [facility] | | | DIAGNOSIS | rhythmNormal ECG"I have | | OF | | | | personally interpreted | | CARDIOLOGY | | | | this report, either | | | | | | alone or with a | | | | | | trainee."Confirmed by | | | | | | DAYO SHARMA ([id number]) on | | | | | | 20-Nov-2009 20:43:16 | | | | + + + + + + | LINK TO | | | [facility] | | | [facility] | | | OF | | | (ECG | | | CARDIOLOGY | | | VIEWER) | | | | | + + + + + + + + | Specimen | + + | | + + + + + | Narrative | Performed At | + + + | Please click | [facility] | | on view image for the detailed interpretation from GI Track results. | CARDIOLOGY | | | | + + + + + + + + | Performing | Address | City/State/Zipcode | Phone Number | | Organization | | | | + + + + + | [facility] | [address] | [place], [place] | | | CARDIOLOGY | [address] | [address] | | + + + + + CARDIOLOGY (11/16/2009 12:00 AM PDT) + + + | Narrative | Performed At | + + + | | | + + + + + | Procedure Note | + + | Rory Fabian - 06/03/2010 11:21 PM PDT | | | + + documented in this encounter Visit Diagnoses + + | Diagnosis | + + | TIA (transient ischemic attack) Unspecified transient cerebral ischemia | + + documented in this encounter Administered Medications + +--------+ +---------+------+------+ | Medication Order | MAR | Action | Dose | Rate | Site | | | Action | Date | | | | + +--------+ +---------+------+------+ | albuterol (aka PROVENTIL, | Given | 11/17/19 | 2 puffs | | | | VENTOLIN) 90 mcg/Actuation | | 10 5:18 | | | | | inhaler 2 Puff 2 puff, | | AM PDT | | | | | inhalation, EVERY 4 HOURS | | | | | | | NEEDED, Starting Thu11/16/09 at | | | | | | | 0437, Until Thu11/16/09 at 0520, | | | | | | | dyspnea/SOB | | | | | | + +--------+ +---------+------+------+ +---+---+ | | | +---+---+ + +-------+ +---------+---+---+ | albuterol (aka PROVENTIL, | Given | 11/18/19 | 2 puffs | | | | VENTOLIN) 90 mcg/Actuation | | 10 4:13 | | | | | inhaler 2 Puff 2 puff, | | PM PDT | | | | | inhalation, EVERY 4 HOURS | | | | | | | NEEDED, Starting Thu11/16/09 at | | | | | | | 0520, Until Thu11/21/09 at 1851, | | | | | | | dyspnea/SOB | | | | | | + +-------+ +---------+---+---+ +---+---+ | | | +---+---+ + +-------+ +-------+---+---+ | aspirin chewable tablet 81 mg | Given | 11/17/19 | 81 mg | | | | 81 mg, oral, DAILY, First dose on | | 10 9:00 | | | | | 11/16/09 at 0900, Until | | AM PDT | | | | | Discontinued | | | | | | + +-------+ +-------+---+---+ +---+---+ | | | +---+---+ + +-------+ +--------+---+---+ | aspirin tablet 650 mg 650 mg, | Given | 11/22/19 | 650 mg | | | | oral, DAILY, First dose on Sat | | 10 9:00 | | | | | 11/17/09 at 0900, Until | | AM PDT | | | | | Discontinued | | | | | | + +-------+ +--------+---+---+ +-------+ +--------+---+---+ | Given | 11/21/19 | 650 mg | | | | | 10 9:00 | | | | | | AM PDT | | | | +-------+ +--------+---+---+ | Given | 11/20/19 | 650 mg | | | | | 10 9:00 | | | | | | AM PDT | | | | +-------+ +--------+---+---+ +---+---+ | | | +---+---+ + +-------+ +-------+---+---+ | atenolol (aka TENORMIN) tablet | Given | 11/21/19 | 50 mg | | | | 50 mg 50 mg, oral, TWICE DAILY, | | 10 9:00 | | | | | First dose on Thu11/16/09 at | | AM PDT | | | | | 0900, Until Discontinued | | | | | | + +-------+ +-------+---+---+ +-------+ +-------+---+---+ | Given | 11/20/19 | 50 mg | | | | | 10 8:57 | | | | | | PM PDT | | | | +-------+ +-------+---+---+ | Given | 11/20/19 | 50 mg | | | | | 10 9:00 | | | | | | AM PDT | | | | +-------+ +-------+---+---+ +---+---+ | | | +---+---+ + +---------+ +---+ +---+ | dextrose 5%-lactated ringers IV | New Bag | 11/20/19 | | 75 mL/hr | | | intravenous, CONTINUOUS, | | 10 10:00 | | | | | Starting Thu11/19/09 at 0015, | | AM PDT | | | | | Until Thu11/19/09 at 1330 | | | | | | + +---------+ +---+ +---+ +---------+ +---+ +---+ | New Bag | 11/20/19 | | 75 mL/hr | | | | 10 12:15 | | | | | | AM PDT | | | | +---------+ +---+ +---+ +---+---+ | | | +---+---+ + +---------+ +---+ +---+ | dextrose 5%-lactated ringers IV | New Bag | 11/21/19 | | 75 mL/hr | | | intravenous, CONTINUOUS, | | 10 7:25 | | | | | Starting 11/20/09 at 0015, | | AM PDT | | | | | Until 11/21/09 at 1851 | | | | | | + +---------+ +---+ +---+ + + +---+ +---+ | Restarted | 11/21/19 | | 75 mL/hr | | | | 10 12:00 | | | | | | AM PDT | | | | + + +---+ +---+ +---+---+ | | | +---+---+ + +---------+ +---+ +---+ | dextrose 5%-NaCl 0.45% IV | New Bag | 11/17/19 | | 75 mL/hr | | | intravenous, CONTINUOUS, Starting | | 10 5:30 | | | | | 11/16/09 at 0445, Until Sat | | AM PDT | | | | | 11/17/09 at 0817 | | | | | | + +---------+ +---+ +---+ +---+---+ | | | +---+---+ + +---------+ + + +---+ | dextrose 5%-NaCl 0.45%-KCl 20 | New Bag | 11/21/19 | 75 mL/hr | 75 mL/hr | | | mEq/L IV infusion 75 mL/hr, | | 10 3:31 | | | | | intravenous, CONTINUOUS, Starting | | PM PDT | | | | | 11/20/09 at 1545, Until Wed | | | | | | | 11/21/09 at 1851 | | | | | | + +---------+ + + +---+ +---+---+ | | | +---+---+ + +-------+ +-------+---+---+ | ephedrine injection 10 mg 10 | Given | 11/21/19 | 10 mg | | | | mg, intravenous, POSTPROCEDURE | | 10 4:00 | | | | | PRN, 4 doses, Starting Tue | | PM PDT | | | | | 11/20/09 at 1400, Until Tue | | | | | | | 11/20/09 at 1647, pulse less than | | | | | | | or equal to 80 beats per minute | | | | | | + +-------+ +-------+---+---+ +---+---+ | | | +---+---+ + +-------+ +-------+---+---+ | ezetimibe (aka ZETIA) tablet 10 | Given | 11/21/19 | 10 mg | | | | mg 10 mg, oral, EVERY EVENING, | | 10 9:00 | | | | | First dose on Thu11/16/09 at | | PM PDT | | | | | 2100, Until Discontinued | | | | | | + +-------+ +-------+---+---+ +-------+ +-------+---+---+ | Given | 11/20/19 | 10 mg | | | | | 10 8:57 | | | | | | PM PDT | | | | +-------+ +-------+---+---+ | Given | 11/19/19 | 10 mg | | | | | 10 9:00 | | | | | | PM PDT | | | | +-------+ +-------+---+---+ +---+---+ | | | +---+---+ + +-------+ +------+---+---+ | folic acid (aka FOLVITE) tablet | Given | 11/19/19 | 1 mg | | | | 1 mg 1 mg, oral, DAILY, 3 | | 10 8:40 | | | | | doses, First dose on Thu11/16/09 | | AM PDT | | | | | at 0900, Last dose on Thu11/18/09 | | | | | | | at 0900 | | | | | | + +-------+ +------+---+---+ +-------+ +------+---+---+ | Given | 11/18/19 | 1 mg | | | | | 10 9:00 | | | | | | AM PDT | | | | +-------+ +------+---+---+ | Given | 11/17/19 | 1 mg | | | | | 10 9:00 | | | | | | AM PDT | | | | +-------+ +------+---+---+ +---+---+ | | | +---+---+ + +-------+ + +---+---+ | hydrocodone-acetaminophen (aka | Given | 11/22/19 | 1 tablet | | | | VICODIN) 5-500 mg 1-2 Tab 1-2 | | 10 10:05 | | | | | tablet, oral, EVERY 4 HOURS | | AM PDT | | | | | NEEDED, Starting 11/17/09 at | | | | | | | 5, Until 11/21/09 at 1851, | | | | | | | moderate pain | | | | | | + +-------+ + +---+---+ +-------+ + +---+---+ | Given | 11/21/19 | 1 tablet | | | | | 10 9:17 | | | | | | PM PDT | | | | +-------+ + +---+---+ | Given | 11/21/19 | 1 tablet | | | | | 10 6:20 | | | | | | PM PDT | | | | +-------+ + +---+---+ +---+---+ | | | +---+---+ + +-------+ +--------+---+---+ | HYDROmorphone (aka DILAUDID) | Given | 11/21/19 | 0.5 mg | | | | injection 0.2-0.5 mg 0.2-0.5 mg, | | 10 4:16 | | | | | intravenous, POSTPROCEDURE PRN, | | PM PDT | | | | | Starting 11/20/09 at 1358, | | | | | | | Until 11/20/09 at 1647, | | | | | | | moderate pain | | | | | | + +-------+ +--------+---+---+ + +---+ | | | + +---+ | HYDROmorphone (aka DILAUDID) | | | injection 1 dose, Starting Tue | | | 11/20/09 at 1614, Until Tue | | | 11/20/09 at 1616 | | + +---+ | | | + +---+ + +-------+ +---------+---+---+ | ipratropium (aka ATROVENT) 17 | Given | 11/21/19 | 2 puffs | | | | mcg/Actuation inhaler 2 Puff 2 | | 10 9:00 | | | | | puff, inhalation, TWICE DAILY, | | PM PDT | | | | | First dose (after last | | | | | | | modification) on Thu11/16/09 at | | | | | | | 0900, Until Discontinued | | | | | | + +-------+ +---------+---+---+ +-------+ +---------+---+---+ | Given | 11/21/19 | 2 puffs | | | | | 10 9:00 | | | | | | AM PDT | | | | +-------+ +---------+---+---+ | Given | 11/20/19 | 2 puffs | | | | | 10 8:57 | | | | | | PM PDT | | | | +-------+ +---------+---+---+ + +---+ | | | + +---+ | ipratropium (aka LUCIEN) 17 | | | mcg/Actuation inhaler 1 dose, | | | Starting Thu11/16/09 at 0513, | | | Until Thu11/16/09 at 0515 | | + +---+ | | | + +---+ + +-------+ +---------+---+---+ | multivitamin 1 Cap 1 capsule, | Given | 11/22/19 | 1 | | | | oral, DAILY, First dose on Thu | | 10 9:00 | capsule | | | | 11/16/09 at 0900, Until | | AM PDT | | | | | Discontinued | | | | | | + +-------+ +---------+---+---+ +-------+ +---------+---+---+ | Given | 11/21/19 | 1 | | | | | 10 9:00 | capsule | | | | | AM PDT | | | | +-------+ +---------+---+---+ | Given | 11/20/19 | 1 | | | | | 10 9:00 | capsule | | | | | AM PDT | | | | +-------+ +---------+---+---+ +---+---+ | | | +---+---+ + +-------+ +---------+---+---+ | nicotine (aka NICOTROL) 14 | Given | 11/21/19 | 1 patch | | | | mg/24 hr 1 Patch 1 patch, | | 10 9:00 | | | | | transdermal, DAILY, First dose on | | PM PDT | | | | | 11/16/09 at 2130, Until | | | | | | | Discontinued | | | | | | + +-------+ +---------+---+---+ +-------+ +---------+---+---+ | Given | 11/20/19 | 1 patch | | | | | 10 8:57 | | | | | | PM PDT | | | | +-------+ +---------+---+---+ | Given | 11/19/19 | 1 patch | | | | | 10 9:00 | | | | | | PM PDT | | | | +-------+ +---------+---+---+ +---+---+ | | | +---+---+ + +-------+ +------+---+---+ | polyethylene glycol (aka | Given | 11/19/19 | 17 g | | | | MIRALAX) powder 17 g 17 g, oral, | | 10 8:40 | | | | | DAILY NEEDED, Starting Fri | | AM PDT | | | | | 11/16/09 at 0425, Until Wed | | | | | | | 11/21/09 at 1851, constipation, No | | | | | | | BM in past 3 days | | | | | | + +-------+ +------+---+---+ +---+---+ | | | +---+---+ + +-------+ +--------+---+---+ | ranitidine (aka ZANTAC) tablet | Given | 11/22/19 | 150 mg | | | | 150 mg 150 mg, oral, TWICE | | 10 9:00 | | | | | DAILY, First dose on Thu11/16/09 | | AM PDT | | | | | at 0445, Until Discontinued | | | | | | + +-------+ +--------+---+---+ +-------+ +--------+---+---+ | Given | 11/21/19 | 150 mg | | | | | 10 9:00 | | | | | | PM PDT | | | | +-------+ +--------+---+---+ | Given | 11/21/19 | 150 mg | | | | | 10 9:00 | | | | | | AM PDT | | | | +-------+ +--------+---+---+ +---+---+ | | | +---+---+ + +-------+ +------+---+---+ | REMOVE nicotine patch DAILY, | Given | 11/21/19 | each | | | | First dose on Thu11/16/09 at | | 10 9:00 | | | | | 2130, Until Discontinued | | PM PDT | | | | + +-------+ +------+---+---+ +-------+ +------+---+---+ | Given | 11/20/19 | each | | | | | 10 8:57 | | | | | | PM PDT | | | | +-------+ +------+---+---+ | Given | 11/19/19 | each | | | | | 10 9:00 | | | | | | PM PDT | | | | +-------+ +------+---+---+ +---+---+ | | | +---+---+ + +-------+ +-------+---+---+ | simvastatin (aka ZOCOR) tablet | Given | 11/21/19 | 80 mg | | | | 80 mg 80 mg, oral, EVERY | | 10 9:00 | | | | | EVENING, First dose (after last | | PM PDT | | | | | modification) on Thu11/16/09 at | | | | | | | 2100, Until Discontinued | | | | | | + +-------+ +-------+---+---+ +-------+ +-------+---+---+ | Given | 11/20/19 | 80 mg | | | | | 10 8:57 | | | | | | PM PDT | | | | +-------+ +-------+---+---+ | Given | 11/19/19 | 80 mg | | | | | 10 9:00 | | | | | | PM PDT | | | | +-------+ +-------+---+---+ +---+---+ | | | +---+---+ + +-------+ +--------+---+---+ | thiamine tablet 100 mg 100 mg, | Given | 11/19/19 | 100 mg | | | | oral, DAILY, 3 doses, First dose | | 10 8:41 | | | | | on 11/16/09 at 0900, Last | | AM PDT | | | | | dose on 11/18/09 at 0900 | | | | | | + +-------+ +--------+---+---+ +-------+ +--------+---+---+ | Given | 11/18/19 | 100 mg | | | | | 10 9:00 | | | | | | AM PDT | | | | +-------+ +--------+---+---+ | Given | 11/17/19 | 100 mg | | | | | 10 9:00 | | | | | | AM PDT | | | | +-------+ +--------+---+---+ +---+---+ | | | +---+---+ documented in this encounter
--- OUTSIDE RECORDS SUMMARY | ~2019-07-23 | XMS | Encounter Summary ---
Demographics + + + | Address | [address] | | | [place] [address] | + + + | Home Phone [...] Author + + + | Author | [facility] | + + + | Organization | [facility] | + + + | Address | [...] Team Providers + +------+ + | Care Automotive Quality Engineer Name | Role | Phone | + +------+ + | Litzy Castillo MD | PCP | | + +------+ + Reason for Visit + + + | Reason | Comments | + + + | Treatment Planning | | + + + Encounter Details +--------+ + + + + | Date | Type | Department | Care Team | Description | +--------+ + + + + | 06/17/ | Telephone | [facility] [place], | Treatment Planning | | 2018 | | [facility] [address] | [place] | | | | | [place] Mailcode: | [address] | | | | | [facility] | [place], [place] | | | | | [place], | [address] | | | | | [place] [address] | [phone] | | | | | [place], [place] | | | | | | [address] | | | | | | [phone] | | | +--------+ + + + [...] | | | | | [place], | | | | | | [place] [address] | | | | | | [phone] | | | | | | | | +--------+ + + + + | 06/18/ | Procedure | Surgery | | | | 2019 | Pass | | | | +--------+ + + + + documented as of this encounter Visit Diagnoses Not on filedocumented in this encounter"
--- OUTSIDE RECORDS SUMMARY | ~2019-07-23 | XMS | Encounter Summary ---
Demographics + + + | Address | [address] | | | [place] [address] | + + + | Home Phone | | + + + | Preferred Language | Unknown | + + + | Marital Status | | + + + | Shinto Affiliation | Unknown | + + + | Race | Unknown | + + + | Ethnic Group | Unknown | + + + Author + + + | Author | [facility] | | | and [place] | + + + | Organization | [facility] | | | and [...] Team Providers + +------+ + | Care Catering Driver Name | Role | Phone | + +------+ + | Litzy Castillo MD | PCP | | + +------+ + Encounter Details +--------+ + + + + | Date | Type | Department | Care Team | Description | +--------+ + + + + | 08/28/ | Hospital | [facility] | Conversion | Pain | | 2019 | Encounter | CONVERSION [address] | Transaction, | | | | [address] | Provider Unknown | | | | | [place], [place] | [phone] | | | | | [address] | | | | | | [phone] | | | +--------+ + + + [...] [address] | | | | | | [place] [address] | | | | | | [phone] | | | | | | | | +--------+---------+ + + + documented as of this encounter Procedures + +--------+ + + + | Procedure Name | Priori | Date/Time | Associated Diagnosis | Comments | | | ty | | | | + +--------+ + + + | XR CHEST 1 VIEW | Routin | 02/25/2013 | | Results for this | | | e | 5:02 AM | | procedure are in the | | | | PDT | | results section. | + +--------+ + + + documented in this encounter Results XR Chest 1 Vw (02/25/2013 5:02 AM PDT) + + | Specimen [...]
--- OUTSIDE RECORDS SUMMARY | ~2019-07-23 | XMS | Encounter Summary ---
Demographics + + + | Address | [address] | | | [place] [address] | + + + | Home Phone | | + + + | Preferred Language | Unknown | + + + | Marital Status | | + + + | Jain Affiliation | Unknown | + + + | Race | Unknown | + + + | Ethnic Group | Unknown | + + + Author + + + | Author | [facility] | | | and [place] | + + + | Organization | [facility] | | | [...] Team Providers + +------+ + | Care Promotional Marketing Agent Name | Role | Phone | + +------+ + PCP | Unavailable | + +------+ + Encounter Details +--------+ + + + + | Date | Type | Department | Care Team | Description | +--------+ + + + + | 07/23/ | Hospital | [facility] | Matheus Corado MD | | | 2012 | Encounter | [facility] | [address] | | | | | [facility] [address] | [place], [place] | | | | | [address], | [address] | | | | | [place] [address] | | | | | | [phone] | | | +--------+ + + + [...] | | | | | [place] [address] | | | | | | [phone] | | | | | | | | +--------+---------+ + + + documented as of this encounter Visit Diagnoses Not on filedocumented in this encounter"
--- OUTSIDE RECORDS SUMMARY | ~2019-07-23 | XMS | Encounter Summary ---
Demographics + + + | Address | [address] | | | [place] [address] | + + + | Home Phone [...] Providers + +------+ + | Care Security Shift Manager Name | Role | Phone | [...] | | | [place], [place] | [address] | | | | | [address] | [phone] | | | | | [phone] | | | +--------+ + + + [...] | | | | | [place] [address] | | | | | | [phone] | | | | | | | | +--------+---------+ + + + documented as of this encounter Visit Diagnoses Not on filedocumented in this encounter"
--- OUTSIDE RECORDS SUMMARY | ~2019-07-23 | XMS | Encounter Summary ---
Demographics + + + | Address | [address] | | | [place] [address] | + + + | Home Phone | | + + + | Preferred Language | Unknown | + + + | Marital Status | | + + + | Alevism Affiliation | Unknown | + + + | Race | Unknown | + + + | Ethnic Group | Unknown | + + + Author + + + | Author | [facility] | | | and [place] | + + + | Organization | [facility] | | | and [place] | + + + | Address | Unknown | + + + | Phone | Unavailable | + + + Support + + +---------+ + | Name | Relationship | Address | Phone | + + +---------+ + | Daniele Tapia | ECON | Unknown | | + + +---------+ + | Vreónica Lopez | ECON | Unknown | | + + +---------+ + Care Team Providers + +------+ + | Care Unit Manager Convenience Stores Name | Role | Phone | + +------+ + PCP | Unavailable | + +------+ + Encounter Details +--------+ + + + + | Date | Type | Department | Care Team | Description | +--------+ + + + + | 01/14/ | Hospital | [facility] | Davy Heide | | | 2010 | Encounter | [facility] [address] | [address] | | | | | [address] | [facility], | | | | | [place], [place] | [place] [address] | | | | | [address] | [phone] | | | | | [phone] | | | +--------+ + + + [...] [address] | | | | | | [place] [address] | | | | | | [phone] | | | | | | | | +--------+---------+ + + + documented as of this encounter Visit Diagnoses Not on filedocumented in this encounter"
--- OUTSIDE RECORDS SUMMARY | ~2019-07-23 | XMS | Encounter Summary ---
Demographics + + + | Address | [address] | | | [place] [address] | + + + | Home Phone | | + + + | Preferred Language | Unknown | + + + | Marital Status | Single | + + + | Mormon Affiliation | NON | + + + [...] Team Providers + +------+ + | Care Landscape Crew Leader Name | Role | Phone | + +------+ + | Heide Bhatti | PCP | | + +------+ + Encounter Details +--------+ + + + + | Date | Type | Department | Care Team | Description | +--------+ + + + + | 12/03/ | Telephone | Vascular Surgery | Kaveh Izaguirre MD | | | 2011 | | at [facility] 2nd Floor | [address] | | | | | [address] | [address] [place], | | | | | [address] Mail[address]: | [place] [address] | | | | | [address] Physician's | [phone] | | | | | [place], | | | | | | [place] [address] | | | | | | [phone] | | | +--------+ + + + [...] | | | | | [address] [place], | | | | | | [place] [address] | | | | | | [phone] | | | | | | | [...] Primary | + + | 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
--- OUTSIDE RECORDS SUMMARY | ~2019-07-23 | XMS | Encounter Summary ---
Demographics + + + | Address | [address] | | | [place] [address] | + + + | Home Phone [...] Team Providers + +------+ + | Care Deck Lid Fitter Name | Role | Phone | + +------+ + | Heide Bhatti | PCP | | + +------+ + Encounter Details +--------+---------+ + + + | Date | Type | Department | Care Team | Description | +--------+---------+ + + + | 05/28/ | Office | [facility] | Iván, | TIA (transient | | 2010 | Visit | [facility] | MD Marichuy | ischemic attack) | | | | [facility] | | (Primary Dx) | | | | [address] | | | | | | [place] Mailcode: | | | | | | [address] [place] | | | | | | [facility] | | | | | | floor [place], [place] | | | | | | [address] | | | | | | [phone] | | | +--------+---------+ + + + [...] Reason for Consultation: Recurrent TIAs HPI: Darcy uSn is a 56 y.o. 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 Patient has areas of intracranial st enosis, and based on most recent SAMMPRIS study, maximum medical therapy is superior to intr acranial stenting. Patient therefore would likely benefit from maximum medical therapy that was done in [facility] trial Plan: -Continue ASA 325mg PO Daily [...] | | | | | [address] [place], | | | | | | [place] [address] | | | | | | [phone] | | | | | | | [...]
--- OUTSIDE RECORDS SUMMARY | ~2019-07-23 | XMS | Encounter Summary ---
Demographics + + + | Address | [address] | | | [place] [address] | + + + | Home Phone | | + + + | Preferred Language | Unknown | + + + | Marital Status | | + + + | Confucianism Affiliation [...] Team Providers + +------+ + | Care Dental Assistant Name | Role | Phone | + +------+ + | Litzy Castillo MD | PCP | | + +------+ + Encounter Details +--------+ + + + + | Date | Type | Department | Care Team | Description | +--------+ + + + + | 08/28/ | Hospital | [facility] | Conversion | Pain | | 2019 | Encounter | CONVERSION [address] | Transaction, | | | | [address] | Provider Unknown | | | | | [place], [place] | [phone] | | | | | [address] | | | | | | [phone] | | | +--------+ + + + [...] [address] | | | | | | [place] [address] | | | | | | [phone] | | | | | | | | +--------+---------+ + + + documented as of this encounter Procedures + +--------+ + + + | Procedure Name | Priori | Date/Time | Associated Diagnosis | Comments | | | ty | | | | + +--------+ + + + | CT ABDOMEN W | Routin | 01/20/2017 | | Results for this | | CONTRAST | e | 5:09 AM | | procedure are in the | | | | PDT | | results section. | + +--------+ + + + documented in this encounter Results CT Abdomen w Contrast (01/20/2017 5:09 AM PDT) + + | Specimen | [...]
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
--- OUTSIDE RECORDS SUMMARY | ~2019-07-23 | XMS | Encounter Summary ---
Demographics + + + | Address | [address] | | | [place] [address] | + + + | Home Phone | | + + + | Preferred Language | Unknown | + + + | Marital Status | | + + + | Buddhism Affiliation | Unknown | + + + | Race | Unknown | + + + | Ethnic Group | Unknown | + + + Author + + + | Author | [facility] | | | and [place] | + + + | Organization | [facility] | | [...] Providers + +------+ + | Care Rn Labor And Delivery Name | Role | Phone | + +------+ + | Litzy Castillo MD | PCP | | + +------+ + Encounter Details +--------+ + + + + | Date | Type | Department | Care Team | Description | +--------+ + + + + | 08/28/ | Hospital | [facility] [place] [facility] | Conversion | Pain | | 2019 | Encounter | CONVERSION [address] | Transaction, | | | | | [address] | Provider Unknown | | | | | [place], [place] | [phone] | | | | | [address] | | | | | | [phone] | | | +--------+ + + + [...] [address] | | | | | | [place] [address] | | | | | | [phone] | | | | | | | | +--------+---------+ + + + documented as of this encounter Procedures + +--------+ + + + | Procedure Name | Priori | Date/Time | Associated Diagnosis | Comments | | | ty | | | | + +--------+ + + + | MRI LUMBAR SPINE WO | Routin | 02/08/2018 | | Results for this | | CONTRAST | e | 5:10 AM | | procedure are in the | | | | PDT | | results section. | + +--------+ + + + documented in this encounter Results MRI Lumbar Spine wo Contrast (02/08/2018 5:10 AM PDT) + + | Specimen | [...]
--- OUTSIDE RECORDS SUMMARY | ~2019-07-23 | XMS | Encounter Summary ---
Demographics + + + | Address | [address] | | | [place] [address] | + + + | Home Phone | | + + + | Preferred Language | Unknown | + + + | Marital Status | Single | + + + | Nondenominational Affiliation | NON | + + + | Race | White | + + + | Ethnic Group | Not or | + + + Author + + + | Author | [facility] | + + + | Organization | [facility] | + + + | Address [...] Team Providers + +------+ + | Care Line Helper Name | Role | Phone | + +------+ + | Litzy Castillo MD | PCP | | + +------+ + Encounter Details +--------+ + + + + | Date | Type | Department | Care Team | Description | +--------+ + + + + | // | Outside | UNKNOWN DEPARTMENT | Other, Faculty | | | 2018 | Records | [address] [facility] | [phone] | | | | | [address] | | | | | | [place], [place] | | | | | | [address] | | | +--------+ + + + [...] | | | | | [place], | | | | | | [place] [address] | | | | | | [phone] | | | | | | | [...] + +--------+ + + + | OUTSIDE LAB - | | 01/27/2018 | | Results for this | | CHEMISTRY | | 12:00 AM | | procedure are in the | | | | PDT | | results section. | + +--------+ + + + documented in this encounter Results OUTSIDE LAB - CHEMISTRY (01/27/2018 12:00 AM PDT) + + + | Narrative | Performed At | + + + | | | + + + documented in this encounter Visit Diagnoses Not on filedocumented in this encounter"
--- OUTSIDE RECORDS SUMMARY | ~2019-07-23 | XMS | Encounter Summary ---
Demographics + + + | Address | [address] | | | [place] [address] | + + + | Home Phone | | + + + | Preferred Language | Unknown | + + + | Marital Status | | + + + | Mandaeism Affiliation | Unknown | + + + | Race | Unknown | + + + | Ethnic Group | Unknown | + + + Author + + + | Author | [facility] | | | and [place] | + + + | Organization | [facility] | | | [...] Providers + +------+ + | Care Heel Coverer Machine Operator Name | Role | Phone [...] + + | 03/26/ | Telephone | [facility] [place] | Roxanna, | Medication Reaction | | 2017 | | PH[address]SIATRY [address] | [address] | | | | | [place] [address], | [place] [facility], | | | | | [place] [address] | [place] [address] | | | | | [phone] | [phone] | | | | | | | [...] | | | | | [place] [address] | | | | | | [phone] | | | | | | | | +--------+---------+ + + + documented as of this encounter Visit Diagnoses Not on filedocumented in this encounter"
--- OUTSIDE RECORDS SUMMARY | ~2019-07-23 | XMS | Encounter Summary ---
Demographics + + + | Address | [address] | | | [place] [address] | + + + | Home Phone | | + + + | Preferred Language | Unknown | + + + | Marital Status | | + + + | Mandaen Affiliation | Unknown | + + + | Race | Unknown | + + + | Ethnic Group | Unknown | + + + Author + + + | Author | [facility] | | | and [place] | + + + | Organization | [facility] | | [...] Team Providers + +------+ + | Care Soda Clerk Name | Role | Phone | + +------+ + PCP | Unavailable | + +------+ + Encounter Details +--------+ + + + + | Date | Type | Department | Care Team | Description | +--------+ + + + + | 07/20/ | Hospital | [facility] | Matheus Corado MD | | | 2011 | Encounter | [facility] | [address] | | | | | [facility] [address] | [place], [place] | | | | | [address], | [address] | | | | | [place] [address] | | | | | | [phone] | | | +--------+ + + + [...] | | | | | [place] [address] | | | | | | [phone] | | | | | | | | +--------+---------+ + + + documented as of this encounter Visit Diagnoses Not on filedocumented in this encounter"
--- OUTSIDE RECORDS SUMMARY | ~2019-07-23 | XMS | Encounter Summary ---
Demographics + + + | Address | [address] | | | [place] [address] | + + + | Home Phone [...] Team Providers + +------+ + | Care Building Inspection Engineer Name | Role | Phone | [...] [address] | | | | | [address] [place], | | | | | [place], | [place] [address] | | | | | [place] [address] | [phone] | | | | | [phone] | | | +--------+ + + + [...] grossly intact to commands Delt Bi Tri Molder Bench HF KE KF DF PF EHL Left [...] MD Neurosurgery Resident 3:30 PM, 12/14/2018 Pager #[phone] documented in this en counter Plan of Treatment +--------+ + + + + | Date | Type | Specialty | Care Team | Description | +--------+ + + + + | 06/17/ | Hospital | Adult Acute Care | Jarrod Barrett MD | | | 2019 | Encounter | | [address] | | | | | | [place], | | | | | | [place] [address] | | | | | | [phone] | | | | | | | [...] MAR[place] | [address] | [place], [place] | | | [address] [address] | [address] | [address] | | | TESTS | | | | + + + + + PROCEDURE NOTE (12/14/2018 2:52 PM PDT) + + + | Narrative | Performed At | + + + | Jarrod Barrett MD 12/17/2018 10:29 AM Date of Service: | | | 12/14/2018 Attending Surgeon: Jarrod | | | MD Nena Press Pipe Inspector(s): | | | Lilia De La Torre [...] | | 63-year-old female who presented to [facility] with low back [...] predicted by the preoperative MRI. Using a [place] and curette, | | | this was carefully dissected free from the common dural tube and | | | resected. Using a [place], we identified the right L5 pedicle and [...] | | | | | | y, [facility] & | | | | | | [facility] | | | | | | electronic [...] number | | | | | | [id number]. Spine, Right | | | | | [...] | | | | | determined by [facility] | | | | | [...] + + | Performing | Address | City/State[facility] | Phone Number | | Organization | | | | + + + + + | [facility] | [address] | [place] [address] | | | PATHOLOGY | [address] [...] [facility] | [address] | [place] [address] | | | LUZ, ANJALI | SILVIA [...] [facility] | [address] | [place] [address] | | | SERVICES, CORE | PARK [...] | + + + + + | [facility] | [address] | [place] [address] | | | SERVICES, | [address] [...] | + + + + + | [facility] | [address] | [place] [address] | | | SERVICES, | [address] [...] 88 | 60 - 99 mg/dL | [facility] - | | | GLUCOSE, [...] SMITH | [address] | [place], [place] | | | [facility] | [address] | [address] | | | TESTS | | | [...]
--- OUTSIDE RECORDS SUMMARY | ~2019-07-23 | XMS | Encounter Summary ---
Demographics + + + | Address | [address] | | | [place] [address] | + + + | Home Phone [...] Author + + + | Author | [facility] | + + + | Organization | [facility] | + + + | Address [...] Team Providers + +------+ + | Care Administrative Support Associate Name | Role | Phone | + [...] | | of carotid | [address]lan | [address] | | | | | artery | [address] | Rd Mailcode: | | | | | without | [place], [place] | [address] | | | | | mention of | [address] | Physician's | | | | | cerebral | Phone: | Pavilion | | | | | infarction | [phone] | [place], [place] | | | | | Atherosclero | Fax: | [address] | | | | | sis of | [phone] | Phone: | | | | | chitimacha | | [phone] | | | | | arteries of | | Fax: | | | | | the | | [phone] | | | | | extremities | [...] | 2010 | Encounter | Radiology at [facility] | | | | | | [address] | | | | | | [address] Mailcode: | | | | | | [address] Physician's | | | | | | [place], | | | | | | [place] [address] | | | | | | [phone] | | | +--------+ + + + [...] | | | | | [address] [place], | | | | | | [place] [address] | | | | | | [phone] | | | | | | | [...] | [facility]ASC LAB CAROTID | Routin | 05/28/2011 | Occlusion and | Results for this | | DUPLEX COMPLETE | e | 5:30 PM | stenosis of carotid | procedure are in the | | BILATERAL | | PDT | artery without | results section. | | | | | mention of cerebral | | | | | | infarction | | | | | | Atherosclerosis of | | | | | | chitimacha arteries of | | | | | | the extremities with | | | | | | intermittent | | | | | | claudication | | + +--------+ + + + documented in this encounter Results [facility]ASC [facility] CAROTID DUPLEX COMPLETE BILATERAL (05/28/2011 5:30 PM PDT) + + + + + + | Component | Value | Ref Range | Performed | Pathologist | | | | | At | Signature | + + + + + + | VAS LAB | Med Rec No: | | | | | CAROTID | [id number] Name: | | | | | DUPLEX | DARCY ALVARADO Birthday: | | | | | COMPLETE | 1955 Sex: F | | | | | BILATERAL | Alias: Patient Location: | | | | | | [id number]: | | | | | | Outpatient Preadmit | | | | | | Ordering Physician: | | | | | | KAVEH ARROYO M.D. 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
--- OUTSIDE RECORDS SUMMARY | ~2019-07-23 | XMS | Encounter Summary ---
Demographics + + + | Address | [address] | | | [place] [address] | + + + | Home Phone [...] + + + | Author | [facility] | + + + | Organization | [facility] | + + + [...] Team Providers + +------+ + | Care Crimper Operator Name | Role | Phone | + +------+ + | Litzy Castillo MD | PCP | | + +------+ + Reason for Visit + + + | Reason | Comments | + + + | Post-discharge | s/p lumbar laminectomy (dos: 12/14/18) | | follow-up | | + + + Encounter Details +--------+ + + + + | Date | Type | Department | Care Team | Description | +--------+ + + + + | 12/16/ | Telephone | Spine Center at | Jarrod Barrett MD | Post-discharge | | 2019 | | [facility] [address] | [address] | follow-up (s/p | | | | Ave Mailcode: | [address] [place], | lumbar laminectomy | | | | [facility] | [place] [address] | (dos: 12/14/18)) | | | | [place], | [phone] | | | | | [facility] | | | | | | [place], [place] | | | | | | [address] | | | | | | [phone] | | | +--------+ + + + [...] | | | | | [address] [place], | | | | | | [place] [address] | | | | | | [phone] | | | | | | | | +--------+ + + + + | 06/18/ | Procedure | Surgery | | | | 2019 | Pass | | | | +--------+ + + + + documented as of this encounter Visit Diagnoses Not on filedocumented in this encounter"
--- OUTSIDE RECORDS SUMMARY | ~2019-07-23 | XMS | Encounter Summary ---
Demographics + + + | Address | [address] | | | [place] [address] | + + + | Home Phone | | + + + | Preferred Language | Unknown | + + + | Marital Status | Single | + + + | Taoism Affiliation | NON | + + + | Race | White | + + + | Ethnic Group | Not or | + + + Author + + + | Author | [facility] | + + + | Organization | [facility] | + + + | [...] Providers + +------+ + | Care Space And Missile Defense Operations Name | Role | Phone | + [...] Other (surgical | | 2019 | | [facility] [address] | [address] | clearance ) | | | | [place] Mailcode: | [address] [place], | | | | | [facility] | [place] [address] | | | | | and [place], | [phone] | | | | | [facility] | | | | | | [place], [place] | | | | | | [address] | | | | | | [phone] | | | +--------+ + + + [...] | | | | | [address] [place], | | | | | | [place] [address] | | | | | | [phone] | | | | | | | | +--------+ + + + + | 06/18/ | Procedure | Surgery | | | | 2019 | Pass | | | | +--------+ + + + + documented as of this encounter Visit Diagnoses Not on filedocumented in this encounter"
--- OUTSIDE RECORDS SUMMARY | ~2019-07-23 | XMS | Encounter Summary ---
Demographics + + + | Address | [address] | | | [place] [address] | + + + | Home Phone | | + + + | Preferred Language | Unknown | + + + | Marital Status | | + + + | Restorationism Affiliation | Unknown | + + + | Race | Unknown | + + + | Ethnic Group | Unknown | + + + Author + + + | Author | [facility] | | | and [place] | + + + | Organization | [facility] | | | and [...] Team Providers + +------+ + | Care Bottling Line Attendant Name | Role | Phone | + [...] + | 05/20/ | Telephone | [facility] | Melany Paez, | Other (Referral) | | 2011 | | SURGERY [address] | RN | | | | | [place], [place] | | | | | | [address] | | | | | | [phone] | | | +--------+ + + + [...] | | | | | [place] [address] | | | | | | [phone] | | | | | | | | +--------+---------+ + + + documented as of this encounter Visit Diagnoses Not on filedocumented in this encounter"
--- OUTSIDE RECORDS SUMMARY | ~2019-07-23 | XMS | Encounter Summary ---
Demographics + + + | Address | [address] | | | [place] [address] | + + + | Home Phone | | + + + | Preferred Language | Unknown | + + + | Marital Status | | + + + | Hindu Affiliation | Unknown | + + + | Race | Unknown | + + + | Ethnic Group | Unknown | + + + Author + + + | Author | [facility] | | | and [place] | + + + | Organization | [facility] | | | [...] Providers + +------+ + | Care Clinical Sales Consultant Name | Role | Phone | + +------+ + | Litzy Castillo MD | PCP | | + +------+ + Encounter Details +--------+ + + + + | Date | Type | Department | Care Team | Description | +--------+ + + + + | 08/27/ | Hospital | [facility] IP | Conversion | Diagnosis unknown | | 2019 | Encounter | [address] | Transaction, | | | | | [address] | Provider Unknown | | | | | [place], [place] | [phone] | | | | | [address] | | | | | | [phone] | | | +--------+ + + + [...] [address] | | | | | | [place] [address] | | | | | | [phone] | | | | | | | [...]
--- OUTSIDE RECORDS SUMMARY | ~2019-07-23 | XMS | Encounter Summary ---
Demographics + + + | Address | [address] | | | [place] [address] | + + + | Home Phone | | + + + | Preferred Language | Unknown | + + + | Marital Status | | + + + | Hinduism Affiliation | Unknown | + + + [...] Providers + +------+ + | Care [facility] Office Supervisor Name | Role | Phone | + +------+ + | Litzy Castillo MD | PCP | | + +------+ + Encounter Details +--------+ + + + + | Date | Type | Department | Care Team | Description | +--------+ + + + + | 08/28/ | Hospital | [facility] | Conversion | Pain | | 2019 | Encounter | [address] | Transaction, | | | | | [address] | Provider Unknown | | | | | [place], [place] | [phone] | | | | | [address] | | | | | | [phone] | | | +--------+ + + + [...] [address]ARC[address] | | | | | | [place] [address] | | | | | | [phone] | | | | | | | [...]
--- OUTSIDE RECORDS SUMMARY | ~2019-07-23 | XMS | Encounter Summary ---
Demographics + + + | Address | [address] | | | [place] [address] | + + + | Home Phone | | + + + | Preferred Language | Unknown | + + + | Marital Status | | + + + | Anglican Affiliation | Unknown | + + + | Race | Unknown | + + + | Ethnic Group | Unknown | + + + Author + + + | Author | [facility] | | | and [place] | + + + | Organization | [facility] | | | [...] Team Providers + +------+ + | Care Worldwide Chief Creative Officer Name | Role | Phone | [...] | | | CENTER [address] | [facility] | | | | | [address] [place], [place] | [place] [address] | | | | | [address] | [phone] | | | | | [phone] | | | +--------+ + + + [...] [address] | | | | | | [place] [address] | | | | | | [phone] | | | | | | | | +--------+---------+ + + + documented as of this encounter Visit Diagnoses Not on filedocumented in this encounter"
--- OUTSIDE RECORDS SUMMARY | ~2019-07-23 | XMS | Encounter Summary ---
Demographics + + + | Address | [address] | | | [place] [address] | + + + | Home Phone | | + + + | Preferred Language | Unknown | + + + | Marital Status | | + + + | Islam Affiliation | Unknown | + + + | Race | Unknown | + + + | Ethnic Group | Unknown | + + + Author + + + | Author | [facility] | | | and [place] | + + + | Organization | [facility] | | [...] Team Providers + +------+ + | Care Customer Service Sales Consultant Name | Role | Phone [...] + + | 06/09/ | Office | [facility] | Christine Ortega | Peripheral vascular | | 2019 | Visit | CARDIOLOGY [place] | [address] | disease (HCC) | | | | [address] | [address] | (Primary Dx); | | | | [address] | [place] [address] | Essential | | | | [place], [place] | [phone] | hypertension; S/P | | | | [address] | | carotid | | | | [phone] | | endarterectomy; | | | | [...] you fasting labs to be done at [facility],and hang on to slips , and combine [...] a patient of ,who is her primary fisher mussel, and last seen by her 019 Today, [...] coronary artery disease which was normal in [facility] in [place]. She rep orts she sustained damage to [...] outside for 10-15 minutes, and walk around [facility] as well. Her Plavix had been stopped [...] her left side .. (Neurologist,Nayla Sandoval at [facility]) Denies history of seizures. Denies dizziness, syn [...] stopped with leg cramps. . Lives in [place] . Outpatient Medications Prior to Visit Medication [...] for: TOTEPI CARDIAC PROCEDURES/IMAGING Angiogram: Approximately 1994: ([facility]): Reported as normal by patient, eryn [...] T wave inversion aVL. Rate 119 bpm, UT 178 ms, QRS 60 ms, QTC 458 ms, tracing personally reviewed by me EK06/09/2019: Normal sinus rhythm. Noted low voltage QRS leads I, aVL, V1 with T wave i nversions aVL and T wave flattening V1. Rate 61 bpm, UT 186 ms, QRS 70 ms, QTC 396 [...] bpm, and may have had a previous [place]. I reviewed her EKG in detail with [...] may contain inadvertent rec ognition errors. [facility] Eran wallis in this encounter [...] MARCANO | | | | | | [place] [address] | | | | | | [phone] | | | | | | | [...] the | | | | PDT | ([facility]) Essential | results section. | | | | | hypertension S/P | | | | | | carotid | | | | | | endarterectomy | | | | | | Carotid occlusion, | | | | | | left Claudication, | | | | | | intermittent ([facility]) | | | | | | Other emphysema | | | | | | ([facility]) Tobacco | | | | | | [...] | | | | | by [facility] Read Only, | | | | | | [facility] Brad ([id number]), | | | | | | editorial specialist Agustin Michel | | | | | | ([phone]) on 06/09/2019 | | | | | [...]
--- OUTSIDE RECORDS SUMMARY | ~2019-07-23 | XMS | Encounter Summary ---
Demographics + + + | Address | [address] | | | [place] [address] | + + + | Home Phone [...] + + + | Author | [facility] | | | and [place] | + + + | Organization | [facility] | | [...] Team Providers + +------+ + | Care Rock Wool Insulator Name | Role | Phone | + [...] | | | | [address] | [facility], | | | | | [place], [place] | [place] [address] | | | | | [address] | [phone] | | | | | [phone] | | | +--------+ + + + [...] [address] | | | | | | [place] [address] | | | | | | [phone] | | | | | | | | +--------+---------+ + + + documented as of this encounter Visit Diagnoses Not on filedocumented in this encounter"
--- OUTSIDE RECORDS SUMMARY | ~2019-07-23 | XMS | Encounter Summary ---
Demographics + + + | Address | [address] | | | [place] [address] | + + + | Home Phone | | + + + | Preferred Language | Unknown | + + + | Marital Status | | + + + | Sabianism Affiliation | Unknown | + + + [...] Providers + +------+ + | Care Director Life Sales Name | Role | Phone | + +------+ + | Litzy Castillo MD | PCP | | + +------+ + Encounter Details +--------+ + + + + | Date | Type | Department | Care Team | Description | +--------+ + + + + | 08/28/ | Hospital | [facility] GENER[facility] IP | Conversion | Pain | | 2019 | Encounter | [address] | Transaction, | | | | | [address] | Provider Unknown | | | | | [place], [place] | [phone] | | | | | [address] | | | | | | [phone] | | | +--------+ + + + [...] | | | | | | [place] [address] | | | | | | [phone] | | | | | | | [...]
--- OUTSIDE RECORDS SUMMARY | ~2019-07-23 | XMS | Encounter Summary ---
Demographics + + + | Address | [address] | | | [place] [address] | + + + | Home Phone | | + + + | Preferred Language | Unknown | + + + | Marital Status | Single | + + + | Amish Affiliation | NON | + + + | Race | White | + + + | Ethnic Group | Not or | + + + Author + + + | Author | [facility] | + + + | Organization | [facility] | + + + | Address [...] Team Providers + +------+ + | Care Warping Machine Operator Name | Role | Phone | + +------+ + | Litzy Castillo MD | PCP | | + +------+ + Reason for Visit + + + | Reason | Comments | + + + | Postoperative visit | | + + + Encounter Details +--------+---------+ + + + | Date | Type | Department | Care Team | Description | +--------+---------+ + + + | 03/14/ | Office | Sp[facility] Center at | Jarrod Barrett MD | S/P lumbar | | 2019 | Visit | [facility] [address] | [address] | laminectomy (Primary | | | | Ave Mailcode: | [address] [place], | Dx) | | | | [facility] | [place] [address] | | | | | and Healing, | [phone] | | | | | [place] [address] | | | | | | [place], [place] | | | | | | [address] | | | | | | [phone] | | | +--------+---------+ + + + [...] Weight | 52.6 kg (116 lb) | 2019 12:58 PM | | | | | PDT | | + + + + + | Height | 152.4 cm (5') | 2019 12:58 PM | | | | | PDT | | + + + + + | Body Mass Index | 22.65 | 2019 12:58 PM | | | | | PDT | | + + + + + documented in this encounter Progress Notes Jarrod Barrett MD - 2019 1:05 PM PDT [facility] Department of Neurological Surgery Progress Note Chief Complaint: Patient presents with: Postoperative visit History of Present Illness: Ms. Sun is a 63-year-old female who returns for 3 month post-operative visit following righ t L4-5 hemilaminectomy, medial facetectomy, resection of right L4-5 synovial cyst, and right L4-5 and L5-S1 foraminotomies 12/14/2018. Recall that her preoperative symptoms consisted of low back pain with radiation into the right gluteal region and upper thigh. Since surgery , her right leg pain has completely resolved. She does continue to experience low back pain that she most notices when rolling over in bed. She denies any new weakness, numbness, or allen wel/bladder incontinence. Overall, she is very happy with the results of surgery thus far. Current Medications: Current Outpatient Medications Medication Sig Albuterol 90 mcg/Actuation Inhalation Aerosol Inhale 1-2 Puffs every four hours as need ed. aspirin EC 81 mg oral tablet,delayed release (DR/EC) Take 81 mg by mouth once daily. atenolol 100 mg oral tablet Take 100 mg by mouth once daily. gabapentin 300 mg oral capsule 600 mg three times daily. HYDROcodone-acetaminophen (NORCO) 5-325 mg oral tablet Take 1-2 tablets by mouth every six hours as needed for moderate pain or severe pain. Not to exceed 6 in 24 hours/ n ipratropium (ATROVENT HFA) 17 mcg/Actuation Inhalation HFA Aerosol Inhaler Inhale 2 Puf fs two times daily. levothyroxine 50 mcg oral tablet Take 50 mcg by mouth before breakfast. ondansetron ODT 4 mg oral tablet,disintegrating Dissolve 1 tablet on tongue and swallow every eight hours as needed for nausea/vomiting. ondansetron ODT 4 mg oral tablet,disintegrating Dissolve 1 tablet on tongue and swallow every eight hours as needed for nausea/vomiting. oxyCODONE (immediate release) 5 mg oral tablet Take 1-2 tablets by mouth every four martínez rs as needed for breakthrough pain. (Patient not taking: Reported on 12/27/2018) rosuvastatin 40 mg oral tablet valsartan 80 mg oral tablet 80 mg once daily. No current facility-administered medications for this visit. Physical Exam: Ht 1.524 m (5') | Wt 52.6 kg (116 lb) | BMI 22.65 kg/m | BSA 1.49 m General Appearance: NAD, conversant HEENT: Normocephalic, atraumatic, [...] and time. Neurological and Musculoskeletal Exam Inspection: Well-healed midline lumbar incision. MOTOR SCORE LEFT RIGHT LOWER EXTREMITY Iliopsoas- [...] longus- L5,S1 -SPN (Foot eversion) 5 5 Gait: Normal. Sensation: Grossly intact to light touch throughout Imaging: I personally reviewed the imaging studies [...] L4-5. Diagnosis: #1 Lumbar stenosis with radiculopathy s/p right L4-5 hemilaminectomy, medial facetectomy, r esection of right L4-5 synovial cyst, and right L4-5 and L5-S1 foraminotomies 12/14/2018 Impression and Plan: Ms. Sun is doing remarkably well following her lumbar decompression. Her right leg pain has resolved. She does continue to have low back pain. We discussed the multifactorial nature o f low back pain and the difficulties in managing this surgically. The best treatment for low back pain are therapies such as physical therapy, acupuncture, and analgesics. At this point, I would like for her to begin a course of physical therapy for her back pain . She will not require any scheduled neurosurgical follow-up but she knows I am happy to see her in the future should the need arise. All questions were answered. I spent 10 minutes [id number] with the patient. I spent more than 50% of this visit in co ordination of care and counseling in which we discussed diagnosis, treatment, imaging studie s and follow-up. Jarrod Barrett MD Armoring Machine Operator Department of Neurological Surgery [facility] and [address] [address] documented in this enco unter Plan of Treatment +--------+ + + + + | Date | Type | Specialty | Care Team | Description | +--------+ + + + + | 06/17/ | Hospital | Adult Acute Care | Jarrod Barrett MD | | | 2019 | Encounter | | [address] | | | | | | [place], | | | | | | [place] [address] | | | | | | [phone] | | | | | | | | +--------+ + + + + | 06/18/ | Procedure | Surgery | | | | 2019 | Pass | | | | +--------+ + + + + documented as of this encounter Visit Diagnoses + + | Diagnosis | + + | S/P lumbar laminectomy - Primary | + + documented in this encounter"
--- OUTSIDE RECORDS SUMMARY | ~2019-07-23 | XMS | Encounter Summary ---
Demographics + + + | Address | [address] | | | [place] [address] | + + + | Home Phone [...] Team Providers + +------+ + | Care Warp Tying Machine Tender Name | Role | Phone [...] | | | | | Therapy | S/P lumbar | Rosa Isela Whyte, | | | | | | laminectomy | [place] [address] | | | | | | Spinal | [address] | | | | | | stenosis of | [place], [place] | | | | | | lumbar | [address] | | | | | | region with | Phone: | | | | | | radiculopath | [phone] | | | | | | y | Fax: | | | | | | Procedures | [phone] | | | | | | PHYSICAL | | | | | | | THERAPY | | | | | | | REFERRAL | | | + +--------+ + + + + Reason for Visit +--------+ + | Reason | Comments | +--------+ + | Other | Physical therapy order | +--------+ + Encounter Details +--------+ + + + + | Date | Type | Department | Care Team | Description | +--------+ + + + + | 03/16/ | Telephone | [facility] | Jarrod Barrett MD | Other (Physical | | 2019 | | [facility] [address] | [address] | therapy order) | | | | Ave Mailcode: | [place], | | | | | [facility] | [place] [address] | | | | | and [place], | [phone] | | | | | [facility] | | | | | | [place], [place] | | | | | | [address] | | | | | | [phone] | | | +--------+ + + + [...] | | | | | [place], | | | | | | [place] [address] | | | | | | [phone] | | | | | | | [...] | | + +---------+--------+ + + | X-RAY SPINE | Imaging | Routin | S/P lumbar | Expected: | | LUMBOSACRAL 4 VIEWS | | e | laminectomy Spinal | 03/17/2019, Expires: | | | | | stenosis of lumbar | 04/17/2020 | | | | | region with | | | | | | radiculopathy | | | | | | Lumbar stenosis with | | | | | | neurogenic | | | | | | claudication | | + +---------+--------+ + + | X-RAY SPINE | Imaging | Routin | S/P lumbar | Expected: | | LUMBOSACRAL 4 VIEWS | | e | laminectomy Spinal | 03/17/2019, Expires: | | | | | stenosis of lumbar | 04/17/2020 | | | | | region with | | | | | | radiculopathy | | | | | | Lumbar stenosis with | | | | | | neurogenic | | | | | | claudication | | + +---------+--------+ + + documented as of this encounter Visit Diagnoses + + | Diagnosis | + + | S/P lumbar laminectomy - Primary | + + | Spinal stenosis of lumbar region with radiculopathy Spinal stenosis, lumbar region, | | without neurogenic claudication | + + | Lumbar stenosis with neurogenic claudication Spinal stenosis, lumbar region, with | | neurogenic claudication | + + documented in this encounter"
--- OUTSIDE RECORDS SUMMARY | ~2019-07-23 | XMS | Encounter Summary ---
Demographics + + + | Address | [address] | | | [place] [address] | + + + | Home Phone [...] Author + + + | Author | [facility] | + + + | Organization | [facility] | + + + | Address [...] Providers + +------+ + | Care Occupational Therapy Assist Name | Role | Phone | + +------+ + | Heide Bhatti | PCP | | + +------+ + Encounter Details +--------+ + + + + | Date | Type | Department | Care Team | Description | +--------+ + + + + | 05/17/ | Hospital | Radiology/Imaging | Jarrod Barrett MD | | | 2018 | Encounter | Lab at [facility] [address] | [address] | | | | | [place] Mailcode: | [place], | | | | | [facility] | [place] [address] | | | | | and [place], | [phone] | | | | | [facility] | | | | | | Floor [place], [place] | | | | | | [address] | | | | | | [phone] | | | +--------+ + + + [...] | | | | | [place], | | | | | | [place] [address] | | | | | | [phone] | | | | | | | [...] + +--------+ + + + | X-RAY SCOLI SPINE | Routin | 05/17/2018 | Back pain, | Results for this | | ENTR YISELY AP &LAT | e | 1:06 PM | unspecified [...] + documented in this encounter Results X-RAY SCOLI SPINE ENTR SRVY AP &LAT (05/17/2018 1:06 PM PDT) + [...] PM PDT EXAM: SPINE ENTR | | SRMirnaY ADRIÁNY AP & LAT, SPINE LUMBOSACRAL 2 VIEWS [...]
--- OUTSIDE RECORDS SUMMARY | ~2019-07-23 | XMS | Encounter Summary ---
Demographics + + + | Address | [address] | | | [place] [address] | + + + | Home Phone | | + + + | Preferred Language | Unknown | + + + | Marital Status | Single | + + + | Advent Affiliation | NON | + + + [...] Team Providers + +------+ + | Care Traveling Nurse Name | Role | Phone | [...] Pharmacy | | | | | | [address] | | | | | | [place], | | | | | | [place] [address] | | | | | | [phone] | | | +--------+ + + + [...] | | | | | [place], | | | | | | [place] [address] | | | | | | [phone] | | | | | | | | +--------+ + + + + | 06/18/ | Procedure | Surgery | | | | 2020 | Pass | | | | +--------+ + + + + documented as of this encounter Visit Diagnoses Not on filedocumented in this encounter"
--- OUTSIDE RECORDS SUMMARY | ~2019-07-23 | XMS | Encounter Summary ---
Demographics + + + | Address | [address] | | | [place] [address] | + + + | Home Phone [...] Author + + + | Author | [facility] | + + + | Organization | [facility] | + + + | Address [...] Team Providers + +------+ + | Care Transfer Man Name | Role | Phone | + +------+ + PCP | Unavailable | + +------+ + Reason for Referral Consultation (Routine) +--------+--------+ + + + + | Status | Reason | Specialty | Diagnoses / | Referred By | Referred To | | | | | Procedures | Contact | Contact | +--------+--------+ + + + + | Closed | | Orthopedics | Diagnoses | [place], | [place], | | | | | Lumbosacral | MD Jarrod | MD [place] | | | | | | [address] | [address] | | | | | radiculopath | [facility] | [facility] | | | | | y | Rd | Rd [place], | | | | | Procedures | [facility], [place] | [place] | | | | | EMG/NERVE | [address] | [address] | | | | | CONDUCTION | Phone: | Phone: | | | | | STUDIES - | [phone] | [phone] | | | | | ORTHO | Fax: | Fax: | | | | | | [phone] | [phone] | +--------+--------+ + + + + Encounter Details +--------+ + + + + | Date | Type | Department | Care Team | Description | +--------+ + + + + | 05/24/ | Quotation Checker | Spine Center at | Jarrod Barrett MD | Lumbosacral | | 2017 | | [facility] [address] | [address] | radiculopathy | | | | Ave Mailcode: | [address] [place], | (Primary Dx) | | | | [facility] | [place] [address] | | | | | and [place], | [phone] | | | | | Building [address] | | | | | | [place], [place] | | | | | | [address] | | | | | | [phone] | | | +--------+ + + + [...] | | | | | [place] [address] [place], | | | | | | [place] [address] | | | | | | [phone] | | | | | | | [...] EMG/NERVE CONDUCTION | Procedures | Routin | Lumbosacral | Expected: 05/24/2018 | | STUDIES - ORTHO | | e | radiculopathy | (Approximate), | | | | | | Expires: 06/24/2019 | + + +--------+ + + documented as of this encounter Visit Diagnoses + + | Diagnosis | + + | Lumbosacral radiculopathy - Primary Thoracic or lumbosacral neuritis or radiculitis, | | unspecified | + + documented in this encounter"
--- OUTSIDE RECORDS SUMMARY | ~2019-07-23 | XMS | Encounter Summary ---
Demographics + + + | Address | [address] | | | [place] [address] | + + + | Home Phone | | + + + | Preferred Language | Unknown | + + + | Marital Status | | + + + | Jain Affiliation | Unknown | + + + | Race | Unknown | + + + | Ethnic Group | Unknown | + + + Author + + + | Author | [facility] | | | and [place] | + + + | Organization | [facility] | | [...] Team Providers + +------+ + | Care Therapeutic Riding Instructor Name | Role | Phone | + +------+ + | Litzy Castillo MD | PCP | | + +------+ + Reason for Visit + + + | Reason | Comments | + + + | Medication Problem | medication is making her sick | + + + Encounter Details +--------+--------+ + + + | Date | Type | Department | Care Team | Description | +--------+--------+ + + + | 03/29/ | Refill | [facility] | [place], | Medication Problem | | 2017 | | PHYSIATRY [address] | [address] | (medication is | | | | [place], | [place], | making her sick) | | | | [place] [address] | [place] [address] | | | | | [phone] | [phone] | | | | | | | [...] [place] | | | | | | [place] [address] | | | | | | [phone] | | | | | | | | +--------+---------+ + + + documented as of this encounter Visit Diagnoses Not on filedocumented in this encounter"
--- OUTSIDE RECORDS SUMMARY | ~2019-07-23 | XMS | Encounter Summary ---
Demographics + + + | Address | [address] | | | [place] [address] | + + + | Home Phone [...] Team Providers + +------+ + | Care Graphic Engineer Name | Role | Phone | + +------+ + | Litzy Castillo MD | PCP | | + +------+ + Encounter Details +--------+ + + + + | Date | Type | Department | Care Team | Description | +--------+ + + + + | 08/28/ | Hospital | [facility] GENER[facility] IP | Conversion | Pain | | 2019 | Encounter | CONVERSION [address] | Transaction, | | | | | [address] | Provider Unknown | | | | | [place], [place] | [phone] | | | | | [address] | | | | | | [phone] | | | +--------+ + + + [...] [place] | | | | | | [place] [address] | | | | | | [phone] | | | | | | | [...]
--- OUTSIDE RECORDS SUMMARY | ~2019-07-23 | XMS | Encounter Summary ---
Demographics + + + | Address | [address] | | | [place] [address] | + + + | Home Phone | | + + + | Preferred Language | Unknown | + + + | Marital Status | | + + + | Nondenominational Affiliation [...] Team Providers + +------+ + | Care Cattle Alley Worker Name | Role | Phone | + +------+ + PCP | Unavailable | + +------+ + Encounter Details +--------+ + + + + | Date | Type | Department | Care Team | Description | +--------+ + + + + | 01/01/ | Hospital | [facility] | | | | 2011 | Encounter | MED CTR XRAY [address] | | | | | | [address] | | | | | | [place] [address] | | | | | | [phone] | | | +--------+ + + + [...] MARC[place] | | | | | | [place] [address] | | | | | | [phone] | | | | | | | [...] Performed At | + + + | [facility] Diagnostic Imaging Department | [facility] | | [address] [facility] [address] | [facility] | | LOWER EXTREMITY ARTERIAL | DIAG [...] Transcribed Date/Time: | | | 01/02/2012 13:48 Senior Vice President And Chief Information Officer: <Electronically Signed | | | by Jared Jauregui MD> 01/03/12 0814 | | + + + + + | Procedure Note | + + | Zak Ortiz - 10/27/2013 7:17 AM [facility] | | Diagnostic Imaging Department | | [address] | | | | | | [...] | Transcribed Date/Time: 01/02/2012 13:48 | | Senior Vice President And Chief Information Officer: | | <Electronically Signed by Jared Jauregui MD> 01/03/12 0814 | + + + +---------+ + + | Performing | Address | City/State/Zipcode | Phone Number | | Organization | | | | + +---------+ + + | [place] | | | | | [facility] | | | | + +---------+ + + documented in this encounter Visit Diagnoses Not on filedocumented in this encounter"
--- OUTSIDE RECORDS SUMMARY | ~2019-07-23 | XMS | Encounter Summary ---
Demographics + + + | Address | [address] | | | [place] [address] | + + + | Home Phone [...] + + | Author | [facility] | + + + | Organization | [facility] | + + + | Address | Unknown | + + + | Phone | Unavailable | + + + Support + + +---------+ + | Name | Relationship | Address | Phone | + + +---------+ + | Waleska Abebe | ECON | Unknown | | + + +---------+ + | Jraad Abebe | ECON | Unknown | | + + +---------+ + | Daniele Whitten | ECON | Unknown | | + + +---------+ + Care Team Providers + +------+ + | Care Electrician Maintenance Name | Role | Phone | + [...] | 2019 | Encounter | Lab at [facility] [address] | [address] | error) | | | | [place] Mailcode: | [place], | | | | | [facility] | [place] [address] | | | | | [facility], | [phone] | | | | | [address] | | | | | | Floor [place], [place] | | | | | | [address] | | | | | | [phone] | | | +--------+ + + + [...] | | | | [place] [address] [place], | | | | | | [place] [address] | | | | | | [phone] | | | | | | | [...]
--- OUTSIDE RECORDS SUMMARY | ~2019-07-23 | XMS | Clinical Summary ---
Demographics + + + | Address | [address] | | | [place] [address] | + + + | Home Phone [...] Team Providers + +------+ + | Care Legal Manager Name | Role | Phone | + +------+ + | Litzy Castillo MD | PCP | | + +------+ + Source Comments CORDELIAMANUEL is fully live on both EpicCare Ambulatory and EpicCare InPatient.[facility] Allergies + + + + + + [...] | | | | | [place], | | | | | | [place] [address] | | | | | | [phone] | | | | | | | [...] | MEDICA | xxxxxxxxxxx | 01/23/20 | [phone] | [address] | Medica | | | RE A & | | 09-Pre | 1 | [address] | re | | | B | | sent | | [place] | | | | | | | | [address] | | + +--------+ +--------+ + +--------+ | MEDICAID [place] | OHP | xxxxxxxx | 08/24/19 | [phone] | [address] | [address] | | | PLUS | | 19-Pre | 6 | [address] | id | | | OPEN | | sent | | [place], [place] | | | | CARD | | | | [address] | | + +--------+ +--------+ + +--------+ [...] | | al/Fam | | 1955 | [phone] | [address] [place] | | | roseanna | | | 6 (Home) | [address] | + +--------+ +--------+ + + Advance Directives + + + + + | Type | Date Recorded | Patient | Explanation | | | | Website Programmer | | + + + + + | Advance | | | | | Directives and | | | | | Living Will | | | | + + + + + | Power of | | | | | Table Saw Operator | | | | + + + [...]
--- OUTSIDE RECORDS SUMMARY | ~2019-07-23 | XMS | Encounter Summary ---
Demographics + + + | Address | [address] | | | [place] [address] | + + + | Home Phone | | + + + | Preferred Language | Unknown | + + + | Marital Status | | + + + | Scientologist Affiliation | Unknown | + + + | Race | Unknown | + + + | Ethnic Group | Unknown | + + + Author + + + | Author | [facility] | | | and [place] | + + + | Organization | [facility] | | [...] Team Providers + +------+ + | Care Package Sealer Name | Role | Phone | + +------+ + PCP | Unavailable | + +------+ + Encounter Details +--------+ + + + + | Date | Type | Department | Care Team | Description | +--------+ + + + + | 03/20/ | Hospital | [facility] | Christoph Lipscomb | | | 2011 | Encounter | HOSP[facility] EMERGENCY | [address] | | | | | CENTER [address] | [address] | | | | | [address] [place] | [place] [address] | | | | | [address] | [phone] | | | | | [phone] | | | +--------+ + + + [...] | | | | | [place] [address] | | | | | | [phone] | | | | | | | | +--------+---------+ + + + documented as of this encounter Visit Diagnoses Not on filedocumented in this encounter"
--- OUTSIDE RECORDS SUMMARY | ~2019-07-23 | XMS | Encounter Summary ---
Demographics + + + | Address | [address] | | | [place] [address] | + + + | Home Phone [...] Phone | + + +---------+ + | Wlaeska Abebe | ECON | Unknown | | + + +---------+ + | Jarad Abebe | ECON | Unknown | | + + +---------+ + | Daniele Whitten | ECON | Unknown | | + + +---------+ + Care Team Providers + +------+ + | Care Hand Woodworking Sander Name | Role | Phone | + [...] | | endarterecto | [address] | [facility] | | | | | my | [address] | Rd Mailcode: | | | | | Procedures | [facility] | [address] | | | | | VASC LAB | Road | Physician's | | | | | CAROTID | [place], [place] | Pavilion | | | | | DUPLEX RIGHT | [address] | [place], [place] | | | | | | Phone: | [address] | | | | | | [phone] | Phone: | | | | | | Fax: | [phone] | | | | | | [phone] | Fax: | | | | | | | [phone] | +--------+--------+ + + + + Reason [...] | | | [address] Mailcode: | [place], [place] | Unspecified | | | | [address] Physician's | [address] | transient cerebral | | | | [place], | [phone] | ischemia | | | | [place] [address] | | | | | | [phone] | | | +--------+---------+ + + + [...] management plan. PATRICK NUNEZ MD VASCULAR SURGERY [address] [place] [address] Mailcode: [address] [place] [address] Gus Gan MD - 12/03/2009 1:58 PM PDTI saw and evaluated the patient. I agree with the findings and the plan of care as documented in the resident s note. Her follow up duplex is fine and w e will see her in one year GUS BARROSO MD VASCULAR SURGERY [address] [place] [address] Mailcode: [address] [place] [address] documented in this en counter Plan of Treatment +--------+ + + + + | Date | Type | Specialty | Care Team | Description | +--------+ + + + + | 06/17/ | Hospital | Adult Acute Care | Jarrod Barrett MD | | | 2019 | Encounter | | [address] | | | | | | [place], | | | | | | [place] [address] | | | | | | [phone] | | | | | | | | +--------+ + + + + | 06/18/ | Procedure | Surgery | | | | 2019 | Pass | | | | +--------+ + + + + documented as of this encounter Results [facility] LAB CAROTID DUPLEX RIGHT (12/03/2009 2:49 PM PDT) + + + + + + | Component | Value | Ref Range | Performed | Pathologist | | | | | At | Signature | + + + + + + | VASC LAB | Med Rec No: | | | | | CAROTID | [id number] Name: | | | | | DUPLEX | DOV SUN Birthday: | | | | | RIGHT | 1955 Sex: F | | | | | | Alias: Patient Location: | | | | | | [id number]: | | | | | | Outpatient [...] # | | | | | | [id number] | | | | | | RESULT:CEREBROVASCULAR [...] | | + +---------+ + + | [facility] DEPARTMENT OF | | | | | RADIOLOGY | | | | + +---------+ + + documented in this encounter Visit Diagnoses + + | Diagnosis | + + | S/P carotid endarterectomy - Primary Other postprocedural status | + + | Unspecified transient cerebral ischemia | + + documented in this encounter
--- OUTSIDE RECORDS SUMMARY | ~2019-07-23 | XMS | Encounter Summary ---
Demographics + + + | Address | [address] | | | [place] [address] | + + + | Home Phone [...] Team Providers + +------+ + | Care Hot Stick Man Name | Role | Phone | [...] + + | 09/17/ | Telephone | [facility] | [place], | | | 2011 | | [facility] | MD Marichuy | | | | | [facility] | | | | | | [address] | | | | | | [place] Mailcode: | | | | | | [address] [place] | | | | | | [facility] | | | | | | floor [place], [place] | | | | | | [address] | | | | | | [phone] | | | +--------+ + + + [...] | | | | [place], | | | | | | [place] [address] | | | | | | [phone] | | | | | | | | +--------+ + + + + | 06/18/ | Procedure | Surgery | | | | 2020 | Pass | | | | +--------+ + + + + documented as of this encounter Visit Diagnoses Not on filedocumented in this encounter"
--- OUTSIDE RECORDS SUMMARY | ~2019-07-23 | XMS | Encounter Summary ---
Demographics + + + | Address | [address] | | | [place] [address] | + + + | Home Phone | | + + + | Preferred Language | Unknown | + + + | Marital Status | Single | + + + | Restorationism Affiliation | NON | + + + [...] Team Providers + +------+ + | Care Tile Trimmer Name | Role | Phone | + [...] | | | | attack) S/P | [place], [place] | Mailcode: | | | | | carotid | [address] | [address] | | | | | endarterecto | Phone: | [place] | | | | | | [phone] | Research | | | | | Cerebrovascu | Fax: | [place] [address] | | | | | lar accident | [phone] | floor | | | | | (CVA), | | [place], [place] | | | | | unspecified | | [address] | | | | | mechanism | | Phone: | | | | | (HCC) | | [phone] | | | | | Procedures | | Fax: | | | | | CONSULT TO | | [phone] | | | | | NEUROLOGY | [...] Referral to | | 2018 | | [facility] [address] | [address] | neurology service | | | | [place] Mailcode: | [place], | | | | | [facility] | [place] [address] | | | | | and [place], | [phone] | | | | | [place] [address] | | | | | | [place], [place] | | | | | | [address] | | | | | | [phone] | | | +--------+ + + + [...] | | | | | [place], | | | | | | [place] [address] | | | | | | [phone] | | | | | | | [...]
--- OUTSIDE RECORDS SUMMARY | ~2019-07-23 | XMS | Encounter Summary ---
Demographics + + + | Address | [address] | | | [place] [address] | + + + | Home Phone | | + + + | Preferred Language | Unknown | + + + | Marital Status | Single | + + + | Baptist Affiliation | NON | + + + [...] Team Providers + +------+ + | Care Vessel Captain Name | Role | Phone | + [...] | | of carotid | Harlan | [facility] | | | | | artery | [address] | Rd Mailcode: | | | | | without | [place], [place] | [address] | | | | | mention of | [address] | Physician's | | | | | cerebral | Phone: | Pavilion | | | | | infarction | [phone] | [place], [place] | | | | | Atherosclero | Fax: | [address] | | | | | sis of | [phone] | Phone: | | | | | north fork | | [phone] | | | | | arteries of | | Fax: | | | | | the | | [phone] | | | | | extremities | [...] | | | | of carotid | Tustin | [facility] | | | | | artery | Ana | [address] Mailcode: | | | | | without | [place], [place] | [address] | | | | | mention of | [address] | Physician's | | | | | cerebral | Phone: | Pavilion | | | | | infarction | [phone] | [place], [place] | | | | | Atherosclero | Fax: | [address] | | | | | sis of | [phone] | Phone: | | | | | north fork | | [phone] | | | | | arteries of | | Fax: | | | | | the | | [phone] | | | | | extremities | [...] | | | | | | | [place], [place] | | | | | | | [address] | | | | | | | Phone: | | | | | | | [phone] | | | | | | | Fax: | | | | | | | [phone] | +--------+--------+ + + + + Encounter Details +--------+---------+ + + + | Date | Type | Department | Care Team | Description | +--------+---------+ + + + | 05/28/ | Office | Vascular Surgery | Kaveh Arroyo MD | Occlusion and | | 2010 | Visit | at [facility] 2nd Floor | [address] | stenosis of carotid | | | | [address] [facility] | [place], | artery without | | | | [place] Mailcode: | [place] [address] | mention of cerebral | | | | [address] Physician's | [phone] | infarction; | | | | Jenna [place], | | Atherosclerosis of | | | | [place] [address] | | north fork arteries of | | | | [phone] | | the extremities with | | [...] of right aorto-femora l bypass in the ([place]) and right carotid endarterectomy in October 2009 ([facility]). Prior to endarterectomy she had 80% stenosis [...] for 2.5 hrs and presented to the [facility] ED where she had a head CT and was sent home. Yesterday evening she had an episo de of both legs giving out, with her son describing a concomitant left facial droop. She wa s taken by ambulance back to the ED, where it was recommended she come to [facility]. She feels t hat she is having [...] and I think that these replace the rotary planer set up operator bilaterally. A/P: Ms. Sun is a 56 yo female with an extensive hx of PAD and carotid artery dz, now with a 1 w marshall hx of episodes that are historically consistent [...] KAVEH ARROYO MD VASCULAR SURGERY [address] [facility] Mailcode: [address] [place] [id number] documented in this enco unter Plan of Treatment +--------+ + + + + | Date | Type | Specialty | Care Team | Description | +--------+ + + + + | 06/17/ | Hospital | Adult Acute Care | Jarrod Barrett MD | | | 2019 | Encounter | | [address] | | | | | | [place], | | | | | | [place] [address] | | | | | | [phone] | | | | | | | [...] | | | | ANKLE BRACH | [id number] Name: | | | | | INDICS [...] | | | | | PMAccession # [id number] | | | | | | RESULT:LOWER [...] the | | | | | | cay-mt-grnhtw arteries | | | | | | [...] | | + +---------+ + + | [facility] DEPARTMENT OF | | | | | [...] | | | | | CAROTID | [id number] Name: | | | | | DUPLEX | DARCY SUN Birthday: | | | | | COMPLETE | 1955 Sex: F | | | | | BILATERAL | Alias: Patient Location: | | | | | | [id number]: | | | | | | Outpatient [...] # | | | | | | [id number] | | | | | | RESULT:CEREBROVASCULAR [...] | | + +---------+ + + | [facility] DEPARTMENT OF | | | | | RADIOLOGY | | | | + +---------+ + + documented in this encounter Visit Diagnoses + + | Diagnosis | + + | Occlusion and stenosis of carotid artery without mention of cerebral infarction | + + | 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
--- OUTSIDE RECORDS SUMMARY | ~2019-07-23 | XMS | Encounter Summary ---
Demographics + + + | Address | [address] | | | [place] [address] | + + + | Home Phone | | + + + | Preferred Language | Unknown | + + + | Marital Status | | + + + | Lutheran Affiliation | Unknown | + + + | Race | Unknown | + + + | Ethnic Group | Unknown | + + + Author + + + | Author | [facility] | | | and [place] | + + + | Organization | [facility] | | | [...] Team Providers + +------+ + | Care Coding Educator Name | Role | Phone | + [...] Provider Unknown | | | | | [place], [place] | [phone] | | | | | [address] | | | | | | [phone] | | | +--------+ + + + [...] MARCANO | | | | | | [place] [address] | | | | | | [phone] | | | | | | | [...]
--- OUTSIDE RECORDS SUMMARY | ~2019-07-23 | XMS | Encounter Summary ---
Demographics + + + | Address | [address] | | | [place] [address] | + + + | Home Phone [...] Author + + + | Author | [facility] | + + + | Organization | [facility] | + + + | [...] Team Providers + +------+ + | Care Museum Guide Name | Role | Phone | + [...] Description | +--------+---------+ + + + | 12/14/ | Surgery | 6A Intra Op [facility] | Jarrod Barrett MD | L4-5 LAMINECTOMY; | | 2018 | | [facility] | [address] | | | | | Admitting Desk | Silvia Art [facility] | | | | | [facility] on the | [place] [address] | | | | | floor [address] | [phone] | | | | | [address] | | | | | | [place], [place] | | | | | | [address] | | | +--------+---------+ + + + [...] grossly intact to commands Delt Bi Tri Automobile Rental Clerk HF KE KF DF PF EHL Left [...] MD Neurosurgery Resident 3:30 PM, 12/14/2018 Pager #[phone] documented in this en counter Plan of Treatment +--------+ + + + + | Date | Type | Specialty | Care Team | Description | +--------+ + + + + | 06/17/ | Hospital | Adult Acute Care | Jarrod Barrett MD | | | 2019 | Encounter | | [address] | | | | | | [address] [place], | | | | | | [place] [address] | | | | | | [phone] | | | | | | | [...] [facility] | [address] | [place], [place] | | | [place] OF CARE | [address] | [address] | | | TESTS | | | | + + + + + PROCEDURE NOTE (12/14/2018 2:52 PM PDT) + + + | Narrative | Performed At | + + + | Jarrod Barrett MD 12/17/2018 10:29 AM Date of Service: | | | 12/14/2018 Attending Surgeon: Jarrod | | | MD Nena Veneer Lathe Operator(s): | | | Lilia De La Torre [...] | | 63-year-old female who presented to [facility] with low back | [...] predicted by the preoperative MRI. Using a [place] and curette, | | | this was carefully dissected free from the common dural tube and | | | resected. Using a [place], we identified the right L5 pedicle and [...] | | | | | | y, [facility] | | [facility] | [facility] [...] | OF | | | | (initials VL) and | | PATHOLOGY | | | | medical record number | | | | | | [id number]. Spine, Right | | | | | [...] | | | | | determined by [facility] | | | | | | [...] + + + + | [place] DEPARTMENT | [address] | [place] [address] | | | PATHOLOGY | [address] [...] [facility] | [address] | [place] [address] | | | SERVICES, CORE | [address] [...] + | [facility] | [address] | [place] [address] | | | SERVICES, CORE | [address] [...] | + + + + + | [facility] | [address] | [place] [address] | | | SERVICES, | [address] [...] | + + + + + | [facility] | [address] | [place] [address] | | | SERVICES, | [address] [...] 88 | 60 - 99 mg/dL | [facility] - | | | GLUCOSE, | [...] SMITH | [address] | [place], [place] | | | [place]INT OF CARE | [address] | [address] | | | TESTS | | | [...] filedocumented in this encounter Administered Medications + +--------+---------+------+------+------+ [...] | | | + +---+ + +-------+ + +---+ + | bacitracin 50,000 Units, | Given | 12/15/19 | 1,010 mL | | Surgical | | ringers (TIS-U-ZOË) 1,000 mL | | 19 11:53 | | | Site | | INTRAPROCEDURE PRN, Starting Tue | | AM PDT | | | | | 12/14/18 at 1153, Until Tue | | | | | | | 12/14/18 at 1459 | | | | | | + +-------+ + +---+ + +---+---+ | | | +---+---+ + +-------+ +------+---+ + | bupivacaine-EPINEPHrine | Given | 12/15/19 | 9 mL | | Surgical | | (MARCAINE-EPINEPHRINE) 0.25 | | 19 1:01 | | | Site | | %-1:200,000 injection | | PM PDT | | | | | INTRAPROCEDURE PRN, Starting Tue | | | | | | | 12/14/18 at 1301, Until Tue | | | | | | | 12/14/18 at 1459 | | | | | | + +-------+ +------+---+ + +---+---+ | | | +---+---+ + +-------+ +---------+---+ + | cloNIDine (DURACLON) injection | Given | 12/15/19 | 300 mcg | | Surgical | | INTRAPROCEDURE PRN, Starting Tu | | 19 1:59 | | | Site | | 4/23/19 at 1359, Until Tue | | PM PDT | | | | | 12/14/18 at 1459 | | | | | | + +-------+ +---------+---+ + +---+---+ | | | +---+---+ + +-------+ [...] PRN, 8 | | | doses, Starting 12/14/18 at | | | 1249, Until 12/14/18 at 2301, | | | severe pain while in Phase I | | | Recovery | | + +---+ | | | + +---+ + +-------+ +---------+---+ + | fentaNYL (SUBLIMAZE) injection | Given | 12/15/19 | 100 mcg | | Surgical | | INTRAPROCEDURE PRN, Starting Tu | | 19 2:00 | | | Site | | 12/14/18 at 1400, Until Tue | | PM PDT | | | | | 12/14/18 at 1459 | | | | | | + +-------+ +---------+---+ + + +---+ | | | + +---+ [...] | | | + +---+ + +-------+ +-------+---+ + | methylPREDNISolone acetate | Given | 12/15/19 | 80 mg | | Surgical | | (DEPO-MEDROL) injection | | 19 2:00 | | | Site | | INTRAPROCEDURE PRN, Starting Tue | | PM PDT | | | | | 12/14/18 at 1400, Until Tue | | | | | | | 12/14/18 at 1459 | | | | | | + +-------+ +-------+---+ + + +---+ | | | + +---+ [...] 12/14/18 at 1249, | | | Until e 12/14/18 at 2301, | | | nausea/vomiting, 1st line | | + +---+ | | | + +---+ | promethazine (PHENERGAN) | | | injection 6.25-12.5 mg 6.25-12.5 | | | mg, intravenous, POSTPROCEDURE | | | PRN, 1 dose, Starting 12/14/18 | | | at 1249, Until e 12/14/18 at | | | 2301, nausea/vomiting, [...]
--- OUTSIDE RECORDS SUMMARY | ~2019-07-23 | XMS | Encounter Summary ---
Demographics + + + | Address | [address] | | | [place] [address] | + + + | Home Phone [...] + + + | Author | [facility] | + + + | Organization | [facility] | + + + | [...] Team Providers + +------+ + | Care Dye Colorist Formulator Name | Role | Phone | + +------+ + | Litzy Castillo MD | PCP | | + +------+ + Reason for Visit + + + | Reason | Comments | + + + | Double vision | | + + + Encounter Details +--------+ + + + + | Date | Type | Department | Care Team | Description | +--------+ + + + + | 05/07/ | Telephone | [facility] at | Jarrod Barrett MD | Double vision | | 2018 | | [facility] [address] | [address] | | | | | [place] Mailcode: | [place] [facility] | | | | | [facility] | [place] [address] | | | | | and [place], | [phone] | | | | | [facility] [address] | | | | | | [place], [place] | | | | | | [address] | | | | | | [phone] | | | +--------+ + + + [...] | | | | | [place], | | | | | | [place] [address] | | | | | | [phone] | | | | | | | | +--------+ + + + + | 06/18/ | Procedure | Surgery | | | | 2020 | Pass | | | | +--------+ + + + + documented as of this encounter Visit Diagnoses Not on filedocumented in this encounter"
--- OUTSIDE RECORDS SUMMARY | ~2019-07-23 | XMS | Encounter Summary ---
Demographics + + + | Address | [address] | | | [place] [address] | + + + | Home Phone | | + + + | Preferred Language | Unknown | + + + | Marital Status | | + + + | Latter Day Affiliation | Unknown | + + + | Race | Unknown | + + + | Ethnic Group | Unknown | + + + Author + + + | Author | [facility] | | | and [place] | + + + | Organization | [facility] | | | and [...] Providers + +------+ + | Care Software Quality Specialist Name | Role | Phone | + +------+ + | Litzy Castillo MD | PCP | | + +------+ + Encounter Details +--------+ + + + + | Date | Type | Department | Care Team | Description | +--------+ + + + + | 08/27/ | Hospital | [facility] | Conversion | Diagnosis unknown | | 2019 | Encounter | CONVERSION [address] | Transaction, | | | | | [address] | Provider Unknown | | | | | [place], [place] | [phone] | | | | | [address] | | | | | | [phone] | | | +--------+ + + + [...] MARCANO | | | | | | [place] [address] | | | | | | [phone] | | | | | | | [...]
--- OUTSIDE RECORDS SUMMARY | ~2019-07-23 | XMS | Encounter Summary ---
Demographics + + + | Address | [address] | | | [place] [address] | + + + | Home Phone [...] Team Providers + +------+ + | Care Scrub Nurse Name | Role | Phone | [...] | | [address] | [address] [facility] | | | | | [place], [place] | Way [facility], | | | | | [address] | [place] [address] | | | | | [phone] | [phone] | | | | | | | [...] Nicole Burgess MD - 04/10/2012 1:[address] [facility] Dictating Practitioner: NICOLE LOBO MD Patient Name: DARCY SUN Patient Date of : 1955 Visit Number: [id number] DISCHARGE SUMMARY DATE OF DISCHARGE: 04/10/2012. DISCHARGE [...] home medications. cc: CECELIA Martinez [email or web address] / [id number] Dictation Date/Time: April 10, 2012 11:57AM Firer Watertender Date/Time: April 12, 2012 06:27AM Authenticated and [...] MARCANO | | | | | | [place] [address] | | | | | | [phone] | | | | | | | | +--------+---------+ + + + documented as of this encounter Visit Diagnoses Not on filedocumented in this encounter"
--- OUTSIDE RECORDS SUMMARY | ~2019-07-23 | XMS | Encounter Summary ---
Demographics + + + | Address | [address] | | | [place] [address] | + + + | Home Phone [...] Team Providers + +------+ + | Care Backhoe Operator Name | Role | Phone | [...] | | | | | lumbar | [address] | [address] | | | | | region with | Phone: | Phone: | | | | | neurogenic | [phone] | [phone] | | | | | claudication | Fax: | Fax: | | | | | | [phone] | [phone] | | | | | Radiculopath | | | | | | | y, lumbar | | | | | | | region | | | | | | | Procedures | | | | | | | REQUEST TO | | | | | | | SURGERY | | | | | | | FUR TINTER | | | | | | | ID EXCIS | | | | | | | INTRASP | | | | | | | LESN,XDURAL, | | | | | | | LUMBAR ID | | | | | | | EXCIS | | | | | | | INTRASP | | | | | | | LESN,INTRADU | | | | | | | R,LUMB ID | | | | | | | BX/EXCIS | | | | | | | SPINAL | | | | | | | TUMOR,XDURAL | | | | | | | ,LUMB ID | | | | | | | BX/EXCIS | | | | | | | SPIN | | | | | | | BALBIR,INDUR,XM | | | | | | | ED,LUMB ID | | | | | | | [...] | | | 2019 | on | [facility] [address] | [address] | | | | | [place] Mailcode: | [place] [facility] | | | | | [facility] | [place] [address] | | | | | and [place], | [phone] | | | | | [place] [address] | | | | | | [place], [place] | | | | | | [address] | | | | | | [phone] | | | +--------+ + + + [...] | | | | | [place], | | | | | | [place] [address] | | | | | | [phone] | | | | | | | [...]
--- OUTSIDE RECORDS SUMMARY | ~2019-07-23 | XMS | Encounter Summary ---
Demographics + + + | Address | [address] | | | [place] [address] | + + + | Home Phone [...] Team Providers + +------+ + | Care Platen Drier Operator Name | Role | Phone | [...] [address] | | | | [place], | [place], | | | | | [place] [address] | [place] [address] | | | | | [phone] | [phone] | | | | | | | [...] MARCANO | | | | | | [place] [address] | | | | | | [phone] | | | | | | | | +--------+---------+ + + + documented as of this encounter Visit Diagnoses Not on filedocumented in this encounter"
--- OUTSIDE RECORDS SUMMARY | ~2019-07-23 | XMS | Encounter Summary ---
Demographics + + + | Address | [address] | | | [place] [address] | + + + | Home Phone [...] Author + + + | Author | [facility] | + + + | Organization | [facility] | + + + | Address | [...] Team Providers + +------+ + | Care Php Lamp Developer Name | Role | Phone | + [...] + + | 07/19/ | Telephone | [place] [facility] | Iván, | Referral | | 2017 | | [facility] | MD Marichuy [address] | | | | | [facility] | [address] | | | | | [address] | [place], [place] | | | | | [place] Mailcode: | [address] | | | | | [address] | [phone] | | | | | [facility] | | | | | | [place], [place] | | | | | | [address] | | | | | | [phone] | | | +--------+ + + + [...] | | | | | [place], | | | | | | [place] [address] | | | | | | [phone] | | | | | | | | +--------+ + + + + | 06/18/ | Procedure | Surgery | | | | 2019 | Pass | | | | +--------+ + + + + documented as of this encounter Visit Diagnoses Not on filedocumented in this encounter"
--- OUTSIDE RECORDS SUMMARY | ~2019-07-23 | XMS | Encounter Summary ---
Demographics + + + | Address | [address] | | | [place] [address] | + + + | Home Phone | | + + + | Preferred Language | Unknown | + + + | Marital Status | | + + + | Faith Affiliation | Unknown | + + + [...] Team Providers + +------+ + | Care Satellite Communications Operator Name | Role | Phone | [...] | Appointment | | 2018 | | [facility] | TERRY Pacheco | (Telemedicine) | | | | [facility] [address] | | | | | | [address] [facility], | | | | | | [place] [address] | | | | | | [phone] | | | +--------+ + + + [...] MARCANO | | | | | | [place] [address] | | | | | | [phone] | | | | | | | | +--------+---------+ + + + documented as of this encounter Visit Diagnoses Not on filedocumented in this encounter"
--- OUTSIDE RECORDS SUMMARY | ~2019-07-23 | XMS | Encounter Summary ---
Demographics + + + | Address | [address] | | | [place] [address] | + + + | Home Phone [...] Team Providers + +------+ + | Care Auto Refinisher Name | Role | Phone | + +------+ + | Heide Bhatti | PCP | | + +------+ + Encounter Details +--------+ + + + + | Date | Type | Department | Care Team | Description | +--------+ + + + + | 10/01/ | Telephone | [facility] | Iván, | | | 2011 | | [facility] | MD Marichuy | | | | | [facility] | | | | | | [address] | | | | | | [place] Mailcode: | | | | | | [address] | | | | | | [facility] | | | | | | floor [place], [place] | | | | | | [address] | | | | | | [phone] | | | +--------+ + + + [...] | | | | | Ana Art [facility] | | | | | | [place] [address] | | | | | | [phone] | | | | | | | | +--------+ + + + + | 06/18/ | Procedure | Surgery | | | | 2019 | Pass | | | | +--------+ + + + + documented as of this encounter Visit Diagnoses Not on filedocumented in this encounter"
--- OUTSIDE RECORDS SUMMARY | ~2019-07-23 | XMS | Encounter Summary ---
Demographics + + + | Address | [address] | | | [place] [address] | + + + | Home Phone [...] Team Providers + +------+ + | Care Percussion Welding Machine Operator Name | Role | Phone [...] Visit | Medicine Clinic at | S, FELT HAT FLANGING OPERATOR [address] | (Primary Dx); S/P | | | | [facility] | [address] | carotid | | | | [address] | [facility] [place] | endarterectomy; TIA | | | | Mail Code: OC8PM | [phone] | (transient ischemic | | | | [facility] | [phone] | attack); | | | | and Healing, | | Claudication, | | | | Building [address] | | intermittent (HCC); | | | | [place], [place] | | PVD (peripheral | | | | [address] | | vascular disease) | | | | [phone] | | (HCC); H/O | | | [...] the test is negative, then no call! [facility] wipe packet and instructions on proper [...] sit, stand or walk. [facility] Surgery Check in Time: The [...] it is after office hours, call the [facility] multiple effect evaporator operator at [phone] and ask them to page him or [...] able to contact her son Jarad at [phone] and he will try to get a [...] patch on 11/20/[address] Izaguirre at [facility]. Patient was started on ASA 325mg PO Daily at that time. She then had recurrent TIAs in 05/2011 and w as seen by neurology at [facility]. Per neurology note from 05/28/2011, "Patient's symptoms are lik dee 2/2 verebrobasilar insufficiency versus anterior circulation. It is difficult to disting uish based on history because patient has occluded L ICA and has vice president of development so most of anter ior circulation is [...] TPA on 02/25/2013 and transferr ed to [facility] from [facility] in [place], [place]. Patient monitored ere and discharged home [...] patch on 11/20/[address] Izaguirre at [facility]. Patient was started on ASA 325mg PO Daily at that time. Recurrent TIAs in 05/2011 and seen by neurology at [facility]. Per neurology note from 05/28/2011, "Patient's symptoms are likely 2/2 verebrobasilar insufficiency versus anterior circulation. It is difficult to distinguish bas ed on history because patient has occluded L ICA and has vice president of development so most of anterior circ ulation is [...] s/p TPA on 02/25/[address] [facility] from [facility] in [place], [place]. Patient monitored there and discharged home [...] of sleep apnea Risk factors for sleep dairy equipment repairer ea: Pt SNORE's loudly (louder than talking) [...] longstanding since asthma attack in 2003 in [place]. No recent cardiology evaluation. HTN - on atenolol and valsartan HLD - on statin PAD - s/p right aorto-fem bypass in 1997 Carotid artery stenosis s/p right CEA in 2009. No recent carotid duplex. Functional Capaci ty: Low PAD carotid artery stenosis hypertension well controlled GI/Hepatic: Within Defined Limits except as noted below Renal: Within Defined Limits except as noted below Urology/Slag Skimmer: Within Defined Limits except as noted below [...] patch on 11/20/[address] Izaguirre at [facility]. Patient was sta rted on ASA 325mg PO Daily at that time. Recurrent TIAs in 05/2011 and seen by neurology at [facility]. Per neurology note from 05/28/2011, "Patient's symptoms are likely 2/2 verebrobasilar insufficiency versus anterior circulation . It is difficult to distinguish based on history because patient has occluded L ICA and has vice president of development so most of anterior circulation is arising from R ICA, which is patent. Patient has areas of intracranial stenosis, and based on most recent SAMMPRIS study, maximum medical therapy is superior to intracranial stenting." Patient was started on Plavix and ASA at [facility]. She stopped Plavix after 3 months and continues ASA. Acute CVA s/p TPA on 02/25/2013 and transferred to [facility] from [place] in [place], [place]. Patient monitored there and discharged home [...] occlusion, left Carotid stenosis, right Claudication, intermittent ([facility]) 05/28/2011 CVA (cerebral vascular accident) ([facility]) 02/25/2013 Double vision right eye Emphysema lung ([facility]) ETOH abuse HTN (hypertension) Hyperlipidemia ICAO (internal carotid artery occlusion), left Intracranial carotid stenosis Lumbago PAD (peripheral artery disease) ([facility]) Personal history of tobacco use Smoking TIA [...] patch on 11/20/[address] Izaguirre at [facility] . Patient was started on ASA 325mg PO Daily at that time. Recurrent TIAs in 05/2011 and seen by neurology at [facility]. Per neurology note from 05/28/2011, "Patient's symptoms are likely 2/2 verebrobasilar insufficiency versus anterior circulation. It is difficult to distinguish ba sed on history because patient has occluded L ICA and has vice president of development so most of anterior cir culation is [...] s/p TPA on 02/25/2013 and transferred to [facility] from [facility] in [place], [place]. Patient monitored there and discharged home [...] contribute to this patient's care. CECELIA Rivas [facility] PRE[facility] [address]TH FLO[address] [place] [address] I advised the patient regarding [...] | | | | | [address] [place], | | | | | | [place] [address] | | | | | | [phone] | | | | | | | [...] + +--------+ + + | COMMUNICATION TO [facility] | Procedures | Routin | Preop examination | Ordered: 06/17/2018 | | LAB DRAW | | e | | | + + +--------+ + + documented as of this encounter Procedures + +--------+ + + + | Procedure Name | Priori | Date/Time | Associated Diagnosis | Comments | | | ty | | | | + +--------+ + + + | [place] COLLECTION VENOUS | Routin | 06/17/2018 | [...] | + + + + + | [facility] | [address] | [place] [address] | | | SERVICES, CORE | SILVIA [...] [facility] | [address] | [place] [address] | | | SERVICES, | [address] [...] | + + + + + | [facility] | [address] | [place] [address] | | | SERVICES, | [address] [...] [facility] | [address] | [place] [address] | | | SERVICES, ANJALI | SILVIA [...] - | | | | | | [place] | | + +-------+ + + + + + | Specimen | + + | Blood - Blood | | (substance) | + + + + + + + | Performing | Address | City/State/Zipcode | Phone Number | | Organization | | | | + + + + + | [facility] | [address] | [place] [address] | | | [place] | | | [...] | | | LABORATORY | | | FINNISH | | | SERVICES, | | | [...] | + + + + + | [facility] | [address] | [place] [address] | | | SERVICES, CORE | SILVIA [...] DEPT OF | [address] | [place], [place] | | | CARDIOLOGY | [address] | [address] | | + + + + + [...]
--- OUTSIDE RECORDS SUMMARY | ~2019-07-23 | XMS | Encounter Summary ---
Demographics + + + | Address | [address] | | | [place] [address] | + + + | Home Phone [...] Team Providers + +------+ + | Care Sales Coach Name | Role | Phone | + +------+ + | Ltizy Castillo MD | PCP | | + [...] [address] | | | | | [place], [place] | Rd [place], [place] | | | | | [address] | [address] | | | | | | [phone] | | +--------+ + + + + [...] | | | | | [address] [place], | | | | | | [place] [address] | | | | | | [phone] | | | | | | | | +--------+ + + + + | 06/18/ | Procedure | Surgery | | | | 2020 | Pass | | | | +--------+ + + + + documented as of this encounter Visit Diagnoses Not on filedocumented in this encounter"
--- OUTSIDE RECORDS SUMMARY | ~2019-07-23 | XMS | Encounter Summary ---
Demographics + + + | Address | [address] | | | [place] [address] | + + + | Home Phone | | + + + | Preferred Language | Unknown | + + + | Marital Status | | + + + | Gnosticist Affiliation | Unknown | + + + | Race | Unknown | + + + | Ethnic Group | Unknown | + + + Author + + + | Author | [facility] | | | and [place] | + + + | Organization | [facility] | | [...] Providers + +------+ + | Care Assistant Store Leader Name | Role | Phone | [...] | | | [address] | [address] [facility], | | | | | [place], [place] | [place] [address] | | | | | [address] | [phone] | | | | | [phone] | | | +--------+ + + + [...] [place] | | | | | | [place] [address] | | | | | | [phone] | | | | | | | | +--------+---------+ + + + documented as of this encounter Visit Diagnoses Not on filedocumented in this encounter"
--- OUTSIDE RECORDS SUMMARY | ~2019-07-23 | XMS | Encounter Summary ---
Demographics + + + | Address | [address] | | | [place] [address] | + + + | Home Phone [...] Author + + + | Author | [facility] | + + + | Organization | [facility] | + + + | Address [...] Providers + +------+ + | Care Senior Procurement Manager Name | Role | Phone | + +------+ + | Heide Bhatti | PCP | | + +------+ + Encounter Details +--------+ + + + + | Date | Type | Department | Care Team | Description | +--------+ + + + + | 02/16/ | Rolloff Driver | Vascular Surgery | Kaveh Izaguirre MD | | | 2011 | | at [facility] 2nd Floor | [address] | | | | | [address] | [address] [place], | | | | | [address] Mailcode: | [place] [address] | | | | | [address] Physician's | [phone] | | | | | [place], | | | | | | [place] [address] | | | | | | [phone] | | | +--------+ + + + [...] | | | | | [address] [facility], | | | | | | [place] [address] | | | | | | [phone] | | | | | | | | +--------+ + + + + | 06/18/ | Procedure | Surgery | | | | 2020 | Pass | | | | +--------+ + + + + documented as of this encounter Visit Diagnoses Not on filedocumented in this encounter"
--- OUTSIDE RECORDS SUMMARY | ~2019-07-23 | XMS | Encounter Summary ---
Demographics + + + | Address | [address] | | | [place] [address] | + + + | Home Phone [...] Team Providers + +------+ + | Care Fire Alarm Technician Name | Role | Phone | + +------+ + PCP | Unavailable | + +------+ + Encounter Details +--------+ + + + + | Date | Type | Department | Care Team | Description | +--------+ + + + + | 07/20/ | Hospital | [place] [facility] | Matheus Corado MD | | | 2011 | Encounter | HOSPITAL LABORATORY | [address] | | | | | [address] | [place], [place] | | | | | [place], [place] | [address] | | | | | [address] | | | | | | [phone] | | | +--------+ + + + [...] | | | | | [place] [address] | | | | | | [phone] | | | | | | | | +--------+---------+ + + + documented as of this encounter Visit Diagnoses Not on filedocumented in this encounter"
--- OUTSIDE RECORDS SUMMARY | ~2019-07-23 | XMS | Encounter Summary ---
Demographics + + + | Address | [address] | | | [place] [address] | + + + | Home Phone [...] Providers + +------+ + | Care Senior Nurse Manager Name | Role | Phone | [...] | | | [place] | [address] | | | | | [address] | [phone] | | | | | [phone] | | | +--------+ + + + [...] Cardiology | Christine Otrega | | | 2019 | Visit | | [address] | | | | | | [address] [place] | | | | | | [place] [address] | | | | | | [phone] | | | | | | | | +--------+---------+ + + + documented as of this encounter Visit Diagnoses Not on filedocumented in this encounter"
--- OUTSIDE RECORDS SUMMARY | ~2019-07-23 | XMS | Encounter Summary ---
Demographics + + + | Address | [address] | | | [place] [address] | + + + | Home Phone | | + + + | Preferred Language | Unknown | + + + | Marital Status | | + + + | Confucianism Affiliation | Unknown | + + + | Race | Unknown | + + + | Ethnic Group | Unknown | + + + Author + + + | Author | [facility] | | | and [place] | + + + | Organization | [facility] | | [...] Team Providers + +------+ + | Care Bilingual Customer Service Name | Role | Phone | + +------+ + | Litzy Castillo MD | PCP | | + +------+ + Encounter Details +--------+ + + + + | Date | Type | Department | Care Team | Description | +--------+ + + + + | 04/08/ | Orders Only | [facility] | Allison Suresh DO | Peripheral vascular | | 2019 | | CARDIOLOGY [place] | [address] | disease (HCC); | | | | [address] | [place], [place] | Cerebral | | | | [address] | [address] | atherosclerosis | | | | [place] | | | | | | [address] | | | | | | [phone] | | | +--------+ + + + [...] [address] | | | | | | [place] [address] | | | | | | [phone] | | | | | | | | +--------+---------+ + + + documented as of this encounter Visit Diagnoses + + | Diagnosis | + + | Peripheral vascular disease (HCC) Peripheral vascular disease, unspecified | + + | Cerebral atherosclerosis | + + documented in this encounter"
--- OUTSIDE RECORDS SUMMARY | ~2019-07-23 | XMS | Encounter Summary ---
Demographics + + + | Address | [address] | | | [place] [address] | + + + | Home Phone [...] Providers + +------+ + | Care Line Installation Supervisor Name | Role | Phone | [...] | | | | [place], [place] | [address] | | | | | [address] | [phone] | | | | | [phone] | | | +--------+ + + + [...] | | | | | [place] [address] | | | | | | [phone] | | | | | | | | +--------+---------+ + + + documented as of this encounter Visit Diagnoses Not on filedocumented in this encounter"
--- OUTSIDE RECORDS SUMMARY | ~2019-07-23 | XMS | Encounter Summary ---
Demographics + + + | Address | [address] | | | [place] [address] | + + + | Home Phone | | + + + | Preferred Language | Unknown | + + + | Marital Status | Single | + + + | Samaritan Affiliation | NON | + + + [...] Team Providers + +------+ + | Care Stereotype Caster Name | Role | Phone | + +------+ + | Litzy Castillo MD | PCP | | + +------+ + Encounter Details +--------+ + + + + | Date | Type | Department | Care Team | Description | +--------+ + + + + | 06/17/ | Anesthesia | Preoperative | Irina Green | | | 2018 | Event | [facility] at | S, INTERVENTIONAL CARDIOLOGIST [address] | | | | | [facility] | [facility] | | | | | [address] | [place], [place] | | | | | Mail Code: OC8PM | [address] | | | | | [facility] | [phone] | | | | | and Healing, | | | | | | [address] | | | | | | [place], [place] | | | | | | [address] | | | | | | [phone] | | | +--------+ + + + [...] | | | | | [address] [place], | | | | | | [place] [address] | | | | | | [phone] | | | | | | | | +--------+ + + + + | 06/18/ | Procedure | Surgery | | | | 2019 | Pass | | | | +--------+ + + + + documented as of this encounter Visit Diagnoses Not on filedocumented in this encounter"
--- OUTSIDE RECORDS SUMMARY | ~2019-07-23 | XMS | Encounter Summary ---
Demographics + + + | Address | [address] | | | [place] [address] | + + + | Home Phone [...] Team Providers + +------+ + | Care Administration Assistant Name | Role | Phone | [...] | | | | | [address] | [place], [place] | Pavilion | | | | | DUPLEX RIGHT | [address] | [place], [place] | | | | | | Phone: | [address] | | | | | | [phone] | Phone: | | | | | | Fax: | [phone] | | | | | | [phone] | Fax: | | | | | | | [phone] | +--------+--------+ + + + + Encounter [...] | | | | | | [place] [address] | | | | | | [phone] | | | +--------+ + + + [...] | | | | | [address] [place], | | | | | | [place] [address] | | | | | | [phone] | | | | | | | [...] + + documented in this encounter Results [facility] CAROTID DUPLEX RIGHT (12/03/2009 2:49 PM PDT) + + + + + + | Component | Value | Ref Range | Performed | Pathologist | | | | | At | Signature | + + + + + + | VASC LAB | Med Rec No: | | | | | [place] | [id number] Name: | | | | | DUPLEX | DOV ALVARADO Birthday: | | | | | RIGHT | 1955 Sex: F | | | | | | Alias: Patient Location: | | | | | | [id number]: | | | | | | Outpatient [...] # | | | | | | [id number] | | | | | | RESULT:CEREBROVASCULAR [...]
--- OUTSIDE RECORDS SUMMARY | ~2019-07-23 | XMS | Encounter Summary ---
Demographics + + + | Address | [address] | | | [place] [address] | + + + | Home Phone | | + + + | Preferred Language | Unknown | + + + | Marital Status | | + + + | Rastafari Affiliation | Unknown | + + + [...] Team Providers + +------+ + | Care Printing Shop Supervisor Name | Role | Phone | [...] | | | | [address] | [facility], | | | | | [place], [place] | [place] [address] | | | | | [address] | [phone] | | | | | [phone] | | | +--------+ + + + [...] [address] | | | | | | [place] [address] | | | | | | [phone] | | | | | | | | +--------+---------+ + + + documented as of this encounter Visit Diagnoses Not on filedocumented in this encounter"
--- OUTSIDE RECORDS SUMMARY | ~2019-07-23 | XMS | Encounter Summary ---
Demographics + + + | Address | [address] | | | [place] [address] | + + + | Home Phone | | + + + | Preferred Language | Unknown | + + + | Marital Status | Single | + + + | Yazidism Affiliation | NON | + + + | Race | White | + + + | Ethnic Group | Not or | + + + Author + + + | Author | [facility] | + + + | Organization | [facility] | + + + | [...] Team Providers + +------+ + | Care Interventional Radiology Tech Name | Role | Phone | + [...] | | | 2019 | Event | [facility] | [address] | | | | | Admitting Desk | [place], | | | | | Located on the | [place] [address] | | | | | floor [address] | [phone] | | | | | [address] | | | | | | [place], [place] | Jass Huynh MD | | | | | [address] | [address] | | | | | | [address] | | | | | | [place], [place] | | | | | | [address] | | | | | | [phone] | | | | | | | [...] | | | | | | [place] [address] | | | | | | [phone] | | | | | | | [...]
--- OUTSIDE RECORDS SUMMARY | ~2019-07-23 | XMS | Encounter Summary ---
Demographics + + + | Address | [address] | | | [place] [address] | + + + | Home Phone | | + + + | Preferred Language | Unknown | + + + | Marital Status | | + + + | Druze Affiliation | Unknown | + + + | Race | Unknown | + + + | Ethnic Group | Unknown | + + + Author + + + | Author | [facility] | | | and [place] | + + + | Organization | [facility] | | | [...] Team Providers + +------+ + | Care Wheat Combine Driver Name | Role | Phone | + +------+ + | Litzy Castillo MD | PCP | | + +------+ + Encounter Details +--------+ + + + + | Date | Type | Department | Care Team | Description | +--------+ + + + + | 08/28/ | Hospital | [facility] IP | Conversion | Pain | | 2019 | Encounter | [address] | Transaction, | | | | [address] | Provider Unknown | | | | | [place], [place] | [phone] | | | | | [address] | | | | | | [phone] | | | +--------+ + + + [...] [address] | | | | | | [place] [address] | | | | | | [phone] | | | | | | | [...]
--- OUTSIDE RECORDS SUMMARY | ~2019-07-23 | XMS | Encounter Summary ---
Demographics + + + | Address | [address] | | | [place] [address] | + + + | Home Phone | | + + + | Preferred Language | Unknown | + + + | Marital Status | | + + + | Catholic Affiliation | Unknown | + + + | Race | Unknown | + + + | Ethnic Group | Unknown | + + + Author + + + | Author | [facility] | | | and [place] | + + + | Organization | [facility] | | | and [...] Team Providers + +------+ + | Care Cycle Director Name | Role | Phone | + +------+ + | Litzy Castillo MD | PCP | | + +------+ + Encounter Details +--------+ + + + + | Date | Type | Department | Care Team | Description | +--------+ + + + + | 08/27/ | Hospital | [facility] IP | Conversion | Diagnosis unknown | | 2019 | Encounter | [address] | Transaction, | | | | | [address] | Provider Unknown | | | | | [place], [place] | [phone] | | | | | [address] | | | | | | [phone] | | | +--------+ + + + [...] [address] | | | | | | [place] [address] | | | | | | [phone] | | | | | | | [...]
--- OUTSIDE RECORDS SUMMARY | ~2019-07-23 | XMS | Encounter Summary ---
Demographics + + + | Address | [address] | | | [place] [address] | + + + | Home Phone [...] + + + | Author | [facility] | + + + | Organization | [facility] | + + + | Address [...] Team Providers + +------+ + | Care Black Top Spreader Machine Operator Name | Role | Phone [...] | | evaluation | | | | [facility] | | | | | | [address] | | | | | | Mail Code: OC8PM | | | | | | [facility] | | | | | | and Healing, | | | | | | [address] | | | | | | [place], [place] | | | | | | [address] | | | | | | [phone] | | | +--------+ + + + [...] perfume, lotions or powder. Remove any nail syriac from at least one fingernail. Do not [...] your procedure. Surgery Check in Locations Admitting [facility], [facility] Surgery Check in Time: Someone from your surgeon's office or [facility] will provide you with information regarding your [...] it is after office hours, call the [facility] fixed route bus operator at [phone] and ask them to page your doc [...] | | | | | [address] [place], | | | | | | [place] [address] | | | | | | [phone] | | | | | | | | +--------+ + + + + | 06/18/ | Procedure | Surgery | | | | 2019 | Pass | | | | +--------+ + + + + documented as of this encounter Visit Diagnoses Not on filedocumented in this encounter"
--- OUTSIDE RECORDS SUMMARY | ~2019-07-23 | XMS | Encounter Summary ---
Demographics + + + | Address | [address] | | | [place] [address] | + + + | Home Phone [...] | Author | [facility] | | | and [place] | + + + | Organization | [facility] | | | and [...] Team Providers + +------+ + | Care Carbonizer Tester Name | Role | Phone | + +------+ + | Litzy Castillo MD | PCP | | + +------+ + Encounter Details +--------+ + + + + | Date | Type | Department | Care Team | Description | +--------+ + + + + | 08/28/ | Hospital | [facility] IP | Conversion | Pain | | 2019 | Encounter | [address] | Transaction, | | | | [address] | Provider Unknown | | | | | [place], [place] | [phone] | | | | | [address] | | | | | | [phone] | | | +--------+ + + + [...] [address] | | | | | | [place] [address] | | | | | | [phone] | | | | | | | [...]
--- OUTSIDE RECORDS SUMMARY | ~2019-07-23 | XMS | Encounter Summary ---
Demographics + + + | Address | [address] | | | [place] [address] | + + + | Home Phone [...] Team Providers + +------+ + | Care Embedded Systems Designer Name | Role | Phone | [...] | | | | | Procedures | [place], [place] | | | | | | PHYSICAL | [address] | | | | | | THERAPY | Phone: | | | | | | REFERRAL | [phone] | | | | | | | Fax: | | | | | | | [phone] | | + +--------+ + + + [...] | | | | | lumbar | [address] | [phone] | | | | | region with | Phone: | Phone: | | | | | neurogenic | [phone] | [phone] | | | | | claudication | Fax: | Fax: | | | | | | [phone] | [phone] | | | | | Radiculopath | | | | | | | y, lumbar | | | | | | | region | | | | | | | Procedures | | | | | | | REQUEST TO | | | | | | | SURGERY | | | | | | | BARBER TOOL SHARPENER | | | | | | | FL EXCIS | | | | | | | INTRASP | | | | | | | LESN,XDURAL, | | | | | | | LUMBAR FL | | | | | | | EXCIS | | | | | | | INTRASP | | | | | | | LESN,INTRADU | | | | | | | R,LUMB FL | | | | | | | BX/EXCIS | | | | | | | SPINAL | | | | | | | TUMOR,XDURAL | | | | | | | ,LUMB FL | | | | | | | BX/EXCIS | | | | | | | SPIN | | | | | | | BALBIR,INDUR,XM | | | | | | | ED,LUMB FL | | | | | | | [...] radiculopathy | | 2019 | Visit | [facility] [address] | SHAYE Beyer | (Primary Dx) | | | | Ave Mailcode: | [address] | | | | | [facility] | [place], [place] | | | | | and [place], | [address] | | | | | [place] [address] | [phone] | | | | | [place], [place] | | | | | | [address] | | | | | | [phone] | | | +--------+---------+ + + + [...] medial facetectomy, Right L 4-5 and Right L5-I1ymbdbhwoyloqso and Resection of right L4-5 synovial cyst [...] this plan. [facility] [address] [place] [phone] documented in t his encounter Plan of Treatment +--------+ + + + + | Date | Type | Specialty | Care Team | Description | +--------+ + + + + | 06/17/ | Hospital | Adult Acute Care | Jarrod Barrett MD | | | 2019 | Encounter | | [address] | | | | | | [place], | | | | | | [place] [address] | | | | | | [phone] | | | | | | | [...]
--- OUTSIDE RECORDS SUMMARY | ~2019-07-23 | XMS | Encounter Summary ---
Demographics + + + | Address | [address] | | | [place] [address] | + + + | Home Phone [...] Team Providers + +------+ + | Care Binder Lockstitch Name | Role | Phone | + [...] Provider Unknown | | | | | [place], [place] | [phone] | | | | | [address] | | | | | | [phone] | | | +--------+ + + + [...] [place] | | | | | | [place] [address] | | | | | | [phone] | | | | | | | [...]
--- OUTSIDE RECORDS SUMMARY | ~2019-07-23 | XMS | Encounter Summary ---
Demographics + + + | Address | [address] | | | [place] [address] | + + + | Home Phone [...] Team Providers + +------+ + | Care Anatomical Embalmer Name | Role | Phone | + [...] + + | 09/22/ | Telephone | [facility] | [place], | | | 2011 | | [facility] | MD Marichuy | | | | | [facility] | | | | | | [address] | | | | | | [place] Mailcode: | | | | | | [address] | | | | | | [facility] | | | | | | floor [place], [place] | | | | | | [address] | | | | | | [phone] | | | +--------+ + + + [...] | | | | | [place], | | | | | | [place] [address] | | | | | | [phone] | | | | | | | | +--------+ + + + + | 06/18/ | Procedure | Surgery | | | | 2020 | Pass | | | | +--------+ + + + + documented as of this encounter Visit Diagnoses Not on filedocumented in this encounter"
--- OUTSIDE RECORDS SUMMARY | ~2019-07-23 | XMS | Encounter Summary ---
Demographics + + + | Address | [address] | | | [place] [address] | + + + | Home Phone [...] Team Providers + +------+ + | Care Service Administrator Name | Role | Phone | [...] Pharmacy | | | | | | [address] | | | | | | [place], | | | | | | [place] [address] | | | | | | [phone] | | | +--------+ + + + [...] | | | | | [place], | | | | | | [place] [address] | | | | | | [phone] | | | | | | | | +--------+ + + + + | 06/18/ | Procedure | Surgery | | | | 2020 | Pass | | | | +--------+ + + + + documented as of this encounter Visit Diagnoses Not on filedocumented in this encounter"
--- OUTSIDE RECORDS SUMMARY | ~2019-07-23 | XMS | Encounter Summary ---
Demographics + + + | Address | [address] | | | [place] [address] | + + + | Home Phone [...] Team Providers + +------+ + | Care Bead Machine Operator Name | Role | Phone | + +------+ + | Heide Bhatti | PCP | | + +------+ + Encounter Details +--------+ + + + + | Date | Type | Department | Care Team | Description | +--------+ + + + + | 09/15/ | Telephone | Vascular Surgery | Kaveh Izaguirre MD | | | 2011 | | at [facility] 2nd Floor | [address] | | | | | [address] | [address] [place], | | | | | [address] Mailcode: | [place] [address] | | | | | [address] [facility] | [phone] | | | | | [place], | | | | | | [place] [address] | | | | | | [phone] | | | +--------+ + + + [...] | | | | | [place], | | | | | | [place] [address] | | | | | | [phone] | | | | | | | | +--------+ + + + + | 06/18/ | Procedure | Surgery | | | | 2020 | Pass | | | | +--------+ + + + + documented as of this encounter Visit Diagnoses Not on filedocumented in this encounter"
--- OUTSIDE RECORDS SUMMARY | ~2019-07-23 | XMS | Encounter Summary ---
Demographics + + + | Address | [address] | | | [place] [address] | + + + | Home Phone [...] Team Providers + +------+ + | Care Aerial Installer Name | Role | Phone | + +------+ + | Litzy Castillo MD | PCP | | + +------+ + Reason for Visit +--------+ + | Reason | Comments | +--------+ + | Other | Telemedicine [facility] | +--------+ + Encounter Details +--------+ + + + + | Date | Type | Department | Care Team | Description | +--------+ + + + + | 07/19/ | Documentati | [facility] ESTRADA | Deloris Seo | Other (Telemedicine | | 2018 | on | [facility] | TERRY Pacheco | [facility]) | | | | [facility] [address] | | | | | | [address] [facility], | | | | | | [place] [address] | | | | | | [phone] | | | +--------+ + + + [...] for Telemedicine appointment with Dr. Minor, Neurologist, [facility]. Pt. is seeking pre-approval for back surgery at [facility] to relieve pain. Was advised to have neuro consult due to stro ke history. Dr. Minor is referring pt. to Dr. Jerry Shelton, opthalmologist in [place], for eval. of unilateral vision loss prior [...] [place] | | | | | | [place] [address] | | | | | | [phone] | | | | | | | | +--------+---------+ + + + documented as of this encounter Visit Diagnoses Not on filedocumented in this encounter"
[~2019-07-23 10:00] MED LIST changes: +IMODIUM A-D2 M2 PO; +LEVOTHYROXINE50 MCG PO; +ROSUVASTATIN CA40 MG PO; +VALSARTAN160 MG PO
--- NOTE | 2019-07-23 10:28 | NUR ---
FAMILY IS AT THE BEDSIDE AT THIS TIME. PT HAS BEEN MADE SWING BE AND COMFORT CARE. PT APPEARS TO BE COMFORTABLE AT THIS TIME. THE FAMILY HAS DECIDED TO REMOVE PT FROM THE VENT "SHE WOULD NOT WANT TO BE KEEP ALIVE THIS WAY" PER PT'S DAUGHTER. ONCE SPIRTIAL CARE ARRIVES PT WILL BE MEDICATED PER DR ATKINSON ORDER AND THE VENT WILL BE TURNED OFF. PT DOES NOT MEET THE REQUIRES FOR DONOR AT THIS TIME DUE TO THE GREEN CYSTALS IN HER BLOOD.
--- NOTE | 2019-07-23 11:00 | NUR ---
pt exbuated at 10:44 today pt pre medicated with fentanyl 100mcg and 2 mg atavin at this time. family and Dr goodson at the bedside. pastrial care present with family. Pt appears comfortable at this time predix drip remains at 1mcg/kg/hr at this time.
--- NOTE | 2019-07-23 12:13 | NUR ---
Called in to CCU to support PT family. PT was coming off of ventilator and the family ask for pastoral care. I remained with the family offering comfort and prayer. PT son, Hernan, was there and daughter, Rosalind. Also Hernan's and son. Family is staying with PT for now and PT is on comfort care. I checked in with the nurses as well. Called the ironing machine operator now cannon fire direction specialist and gave him the status. He will be cannon fire direction specialist if they need more pastoral care. Called in at approx 1000 for Reinier and arrived approx 30 minutes later.
--- NOTE | 2019-07-23 12:37 | NUR ---
PT REMAINS AT THE BEDSIDE VISITING. STAFF ANSWEREING QUESTIONS THEY ARISE FOR THEM. PT APPEARS COMFORTABLE AND THIS FIRE COORDINATOR HAS BEEN SUSCTIONING NEEDED. PT SPO2 75% ON ROOM AIR AND ARTLINE 55/40 (47) AT THIS TIME. ALL OTHER MONITORING HAS BEEN REMOVED. FAIR CATHETER REMAINS IN PLACE DRAINING YELLOW IN COLOR URINE. PASTORIAL CARE HAS LEFT AT THIS TIME, BUT ESTRELLITA COME IF NEEDED.
--- NOTE | 2019-07-23 14:14 | NUR ---
pt medicated with 100mcg fentanyl and 2mg atavin at this time, and pt repositioned at this time to her left side.
--- NOTE | 2019-07-23 14:58 | NUR ---
SOME FAMILY HERE AT THIS TIME, PT MEDICATED AT THIS TIME FOR RESP DISTRESS, FENTANYL 100MCG AND 2MG ATAVIAN IVP GIVEN.
--- NOTE | 2019-07-23 16:00 | NUR ---
PT MEDICATED WITH 100MCG FENTANYL AND 2MG ATIVAN IVP AT THIS TIME. PT ALSO TURNED TO HER LEFT SIDE AT THIS TIME SPO2 69 TO 78% ON ROOMAIR. ARTLINE REMAINS IN PLACE AT THIS TIME.
--- NOTE | 2019-07-23 16:00 | NUR ---
ALL OF PT'S FAMILY RETURNED AT THIS TIME. ALL QUESTIONS ANSWERED. COMFORT CARE TRAY RESTOCKED ALSO AT THIS TIME TODAY.
--- NOTE | 2019-07-23 17:51 | NUR ---
PT CONTIOUES TO APPEAR COMFORTABLE AT THIS TIME. FAMILY REMAINS AT THE BEDSIDE. PT RESP LABORED AND IRREGULAR.
--- NOTE | 2019-07-23 18:23 | NUR ---
ORAL CARE COMPLETED AND SOME ORAL SUNCTING COMPLETED. PT REMAINS ON ROOM AIR AND APPEARS TO BE COMFORTABLE AT THIS TIME. SPO2 RUNING BETWEEN 70 TO 80% AT TIMES.
--- NOTE | 2019-07-23 19:50 | NUR ---
100MCG FENTANYL GIVEN FOR RESP COMFORT. FAMILY AT BEDSIDE.
--- NOTE | 2019-07-23 20:05 | NUR ---
FENTANYL GTT STARTED AT 2MCG/KG/HR. FAMILY REMAINS AT BEDSIDE, RESP A BIT SHORTER AND LESS LABORED.
--- NOTE | 2019-07-24 00:25 | NUR ---
PT RESTING COMFORTABLY, RESP VERY SHALLOW AND SHORT. FENTANYL GTT INFUSING.
--- NOTE | 2019-07-24 01:30 | NUR ---
PT NO LONGER HAS RESPIRATIONS, NO PULSE FELT DR MCGINNIS NOTIFIED.
--- NOTE | 2019-07-24 02:06 | NUR ---
DR MCGINNIS IN TO PRONOUNCE PT. PASTORAL CARE NOTIFIED, PLANS TO COME IN TO NOTIFY FAMILY.
--- NOTE | 2019-07-24 03:23 | NUR ---
FAMILY IN TO TALK WITH PASTORAL CARE AND SAY GOODBYE.
--- NOTE | 2019-07-24 03:53 | NUR ---
PLANT OPERATIONS WORKER WAS CALLED IN AFTER PT'S PASSING. I NOTIFIED THE FAMILY OF THE PT'S . THEY CAME TO VISIT PT FOR A WHILE. THE FAMILY DID NOT WANT TO STAY TO SEE THE PT OFF. THEY HAVE REQUESTED [facility]. PT WAS SENT THERE.
--- NOTE | 2019-07-24 04:33 | NUR ---
PT DEPARTED WITH [facility]
== END 2019-07-24 05:21 | DRG 208 ==
LOC: CCU 10:00
PROVIDERS: ADMIT Internal Medicine
PROC: 5A1935Z Respiratory Ventilation, Less than 24 Consecutive Hours (ICD-10-PCS; principal; 2019-07-23)
DX: J96.00 Acute respiratory failure, unspecified whether with hypoxia or hypercapnia (principal); N17.9 Acute kidney failure, unspecified; K52.9 Noninfective gastroenteritis and colitis, unspecified; I73.9 Peripheral vascular disease, unspecified; I25.10 Atherosclerotic heart disease of native coronary artery without angina pectoris; J44.9 Chronic obstructive pulmonary disease, unspecified; I10 Essential (primary) hypertension; E78.5 Hyperlipidemia, unspecified; E03.9 Hypothyroidism, unspecified; Z51.5 Encounter for palliative care; Z72.0 Tobacco use; Z88.8 Allergy status to other drugs, medicaments and biological substances; Z88.1 Allergy status to other antibiotic agents; Z79.899 Other long term (current) drug therapy; Z79.02 Long term (current) use of antithrombotics/antiplatelets
CPT/HCPCS: J2060; J3010; J7060